=== PATIENT | female | born 1960 | race Caucasian/White ===

== ENCOUNTER 2017-09-21 00:53 | Inpatient (IN) | payer BC, OTHER ==
[~2017-09-21] VITALS: Ht 160 cm; Wt 62.6 kg
[2017-09-21 01:34] LABS: Basophils # (auto) 0.1 uL; Basophils % (auto) 0.6 % (0.0-2.0); Eosinophils # (auto) 0.1 uL; Eosinophils % (auto) 0.7 % (0.0-7.0); Hematocrit 40.1 % (36.0-46.0); Hemoglobin 13.6 g/dL (12.2-16.2); Lymphocytes % (auto) 12.7 % (10.0-50.0); Mean Corpuscular Hemoglobin 30.2 pg (28.0-32.0); Mean Corpuscular Hgb Conc. 33.8 g/dL (32.0-36.0); Mean Corpuscular Volume 89.2 fL (80.0-100.0); Monocytes # (auto) 0.8 uL; Monocytes % (auto) 5.1 % (0.0-12.0); Neutrophils # (auto) 12.6 uL; Neutrophils % (auto) 80.9 % (37.0-80.0); Platelet Count (auto) 262 10^3/uL (140-450); Red Cell Distribution Width 13.7 % (11.8-14.3); White Blood Cell 15.6 10^3/uL (4.4-10.8)
[2017-09-21 01:55] LABS: Albumin 3.5 g/dL (3.4-5.0); BUN/Creatinine Ratio 11.8; Calcium 7.7 mg/dL (8.5-10.1); Magnesium 1.8 mg/dL (1.6-2.6); Potassium 3.4 mmol/L (3.5-5.1)
[2017-09-21 02:00] LABS: Bilirubin, Total 0.7 mg/dL (0.2-1.0); Total Protein 6.7 g/dL (6.4-8.2)
[2017-09-21 04:13] LABS: Urine Amorphous Crystal FEW /hpf (None Seen); Urine Bacteria FEW /hpf (None Seen); Urine Blood TRACE /uL (Negative); Urine Specific Gravity 1.004 (1.001-1.035); Urine WBC 10 /hpf (0 - 5)
[2017-09-21] MEDS ORDERED: cefTRIAXone 1GM/10ml IVPUSH 10 ML IV ONE (04:30)
[2017-09-21] MEDS ORDERED: ENOXAPARIN SOD 80 MG/0.8ML SYRINGE SC ONE (04:30)
[2017-09-21] MEDS ORDERED: SODIUM CHLORIDE 0.9% 1,000 ML IV ONE (04:30)
[2017-09-21] MEDS ORDERED: FUROSEMIDE 20 MG/2 ML VIAL IV ONE (05:30)
[2017-09-21] MEDS ORDERED: ONDANSETRON HCL 4 MG/2 ML VIAL IV PRN (06:30)
[2017-09-21] MEDS ORDERED: NITROGLYCERIN 0.4 MG SL TAB SL PRN (06:30)
[2017-09-21] MEDS ORDERED: MORPHINE SULF INJ 2 MG/ML SYRINGE 1ML IV PRN (06:30)
[2017-09-21] MEDS ORDERED: ACETAMINOPHEN 325 MG TAB PO PRN (06:30)
[2017-09-21] MEDS ORDERED: TEMAZEPAM 15 MG CAP PO PRN (06:30)
[2017-09-21] MEDS ORDERED: HYDROcodone-ACET 5/325MG TAB PO PRN (06:30)
[2017-09-21] MEDS ORDERED: POTASSIUM CHL 20 Meq TABLET PO ONE (06:30)
[2017-09-21] MEDS: cefTRIAXone 1GM/10ml IVPUSH 10 ML IV SCH (09:00)
[2017-09-21] MEDS: METOPROLOL SUCCINATE XL 50 MG TAB PO SCH (10:01)
[2017-09-21] MEDS: TICAGRELOR 90 MG TAB PO SCH ×2 (10:02→21:45)
[2017-09-21] MEDS: FAMOTIDINE 20 MG TAB PO SCH ×2 (10:02→21:45)
[2017-09-21] MEDS: ASPirin 81 mg TAB PO SCH (10:02)
[2017-09-21 10:15] VITALS: BP 87/58
[2017-09-21 10:16] VITALS: BP 87/58
[2017-09-21] MEDS ORDERED: ASPI81TA27 PO (12:06)
[2017-09-21] MEDS ORDERED: METO25TA4 PO (12:06)
[2017-09-21] MEDS ORDERED: ATOR80TA PO (12:06)
[2017-09-21] MEDS ORDERED: TICA90TA PO (12:06)
[2017-09-21 16:51] VITALS: BP 80/53
[2017-09-21] MEDS: ENOXAPARIN SOD 80 MG/0.8ML SYRINGE SC SCH (21:46)
[2017-09-21 22:00] VITALS: BP 87/64
[2017-09-21] MEDS ORDERED: ATORVASTATIN 20 MG TAB PO SCH (22:00)
[2017-09-22 05:00] VITALS: BP 89/60
[2017-09-22 07:35] LABS: Basophils # (auto) 0.1 uL; Eosinophils # (auto) 0.2 uL; Eosinophils % (auto) 2.9 % (0.0-7.0); Hemoglobin 12.6 g/dL (12.2-16.2); Lymphocytes # (auto) 2.5 uL; Lymphocytes % (auto) 38.5 % (10.0-50.0); Mean Corpuscular Hemoglobin 30.1 pg (28.0-32.0); Mean Corpuscular Hgb Conc. 33.9 g/dL (32.0-36.0); Mean Corpuscular Volume 88.8 fL (80.0-100.0); Monocytes # (auto) 0.6 uL; Monocytes % (auto) 9.3 % (0.0-12.0); Neutrophils # (auto) 3.1 uL; Neutrophils % (auto) 48.3 % (37.0-80.0); Nucleated Red Blood Cells % 0.1 %; Platelet Count (auto) 209 10^3/uL (140-450); Red Blood Cells 4.17 10^6/uL (4.0-5.20); Red Cell Distribution Width 14.2 % (11.8-14.3); White Blood Cell 6.4 10^3/uL (4.4-10.8)
[2017-09-22 07:39] LABS: Albumin 3.4 g/dL (3.4-5.0); BUN/Creatinine Ratio 14.9; Bilirubin, Total 0.8 mg/dL (0.2-1.0); Calcium 8.1 mg/dL (8.5-10.1); Potassium 3.9 mmol/L (3.5-5.1); Total Protein 6.4 g/dL (6.4-8.2)
[2017-09-22 08:00] VITALS: BP 106/50
[2017-09-22 09:00] VITALS: BP 106/50
[2017-09-22] MEDS: METOPROLOL SUCCINATE XL 50 MG TAB PO SCH (10:00)
[2017-09-22] MEDS: ENOXAPARIN SOD 80 MG/0.8ML SYRINGE SC SCH (10:02)
[2017-09-22] MEDS: cefTRIAXone 1GM/10ml IVPUSH 10 ML IV SCH (10:02)
[2017-09-22] MEDS: FAMOTIDINE 20 MG TAB PO SCH (10:03)
[2017-09-22] MEDS: TICAGRELOR 90 MG TAB PO SCH (10:03)
[2017-09-22] MEDS: ASPirin 81 mg TAB PO SCH (10:03)
[2017-09-22 13:00] VITALS: BP 88/52
[2017-09-22] MEDS ORDERED: TEMA15CA91 PO (15:05)
[2017-09-22 15:51] VITALS: BP 88/52
[2017-09-23] MEDS ORDERED: ASPirin 81 mg TAB PO SCH (10:00)
== END 2017-09-22 17:10 | disposition home or self-care (01) | DRG 871 ==
LOC: EDBD 00:53 → ER 00:53 → TELE 00:54 → TELE-CENTR 10:22
PROVIDERS: ADMIT Nurse Practitioner; ATTEND Internal Medicine
DX: A41.9 Sepsis, unspecified organism (principal); J18.9 Pneumonia, unspecified organism; I21.4 Non-ST elevation (NSTEMI) myocardial infarction; I50.43 Acute on chronic combined systolic (congestive) and diastolic (congestive) heart failure; N39.0 Urinary tract infection, site not specified; E87.1 Hypo-osmolality and hyponatremia; E11.9 Type 2 diabetes mellitus without complications; I11.0 Hypertensive heart disease with heart failure; E87.6 Hypokalemia; E78.5 Hyperlipidemia, unspecified; I25.10 Atherosclerotic heart disease of native coronary artery without angina pectoris; I25.5 Ischemic cardiomyopathy; I25.2 Old myocardial infarction; Z98.61 Coronary angioplasty status; Z88.5 Allergy status to narcotic agent
CPT/HCPCS: 36415; 71046; 80053; 81001; 81025; 83735; 83880; 84484; 85025; 85379; 85610; 85730; 87086; 93306; 94761; 96361; 96374; 96375; J0696

== ENCOUNTER 2017-12-29 13:28 | Inpatient (IN) | payer BC ==
[~2017-12-29] VITALS: Ht 152.4 cm; Wt 60.7 kg
[~2017-12-29 13:28] MED LIST: ASPI81TA27 PO; ATOR80TA PO; METO25TA4 PO; TEMA15CA91 PO; TICA90TA PO
[2017-12-29 14:22] LABS: Basophils # (auto) 0.1 uL; Basophils % (auto) 1.1 % (0.0-2.0); Eosinophils # (auto) 0.1 uL; Hematocrit 42.3 % (36.0-46.0); Hemoglobin 14.4 g/dL (12.2-16.2); Lymphocytes # (auto) 1.2 uL; Lymphocytes % (auto) 16.4 % (10.0-50.0); Mean Corpuscular Hemoglobin 30.3 pg (28.0-32.0); Mean Corpuscular Volume 89.2 fL (80.0-100.0); Monocytes # (auto) 0.5 uL; Monocytes % (auto) 7.6 % (0.0-12.0); Neutrophils # (auto) 5.2 uL; Neutrophils % (auto) 73.9 % (37.0-80.0); Nucleated Red Blood Cells % 0.1 %; Platelet Count (auto) 251 10^3/uL (140-450); Red Blood Cells 4.75 10^6/uL (4.0-5.20); Red Cell Distribution Width 13.3 % (11.8-14.3)
[2017-12-29 14:36] LABS: Albumin 4.2 g/dL (3.4-5.0); Magnesium 2.4 mg/dL (1.6-2.6)
[2017-12-29 14:42] LABS: BUN/Creatinine Ratio 20.2; Bilirubin, Total 0.8 mg/dL (0.2-1.0); Total Protein 8.1 g/dL (6.4-8.2)
[2017-12-29] MEDS ORDERED: HYDROmorphone HCL 2 MG/ML VL IV PRN (15:45)
[2017-12-29] MEDS ORDERED: DOCUSATE SOD 100 MG CAP PO PRN (15:45)
[2017-12-29] MEDS ORDERED: HYDROcodone-ACET 5/325MG TAB PO PRN (15:45)
[2017-12-29] MEDS ORDERED: ONDANSETRON HCL 4 MG/2 ML VIAL IV PRN (15:45)
[2017-12-29] MEDS ORDERED: ACETAMINOPHEN 325 MG TAB PO PRN (15:45)
[2017-12-29] MEDS ORDERED: NITROGLYCERIN 0.4 MG SL TAB SL PRN (15:45)
[2017-12-29] MEDS ORDERED: METHOCARBAMOL 500 MG TAB PO PRN (15:45)
[2017-12-29] MEDS ORDERED: ENOXAPARIN SOD 80 MG/0.8ML SYRINGE SC ONE (16:30)
[2017-12-29 17:56] LABS: Urine Bacteria NONE SEEN /hpf (None Seen); Urine Blood Negative /uL (Negative); Urine Specific Gravity 1.004 (1.001-1.035); Urine WBC 3 /hpf (0 - 5)
[2017-12-29 19:35] VITALS: BP 100/64
[2017-12-29 21:18] VITALS: BP 84/51
[2017-12-29] MEDS: FLUTICASONE PROP NASAL SPR 0.05 % (50MCG) 16GM EACHNOSTRI SCH (22:00)
[2017-12-29] MEDS: ATORVASTATIN 20 MG TAB PO SCH (22:18)
[2017-12-29] MEDS: TICAGRELOR 90 MG TAB PO SCH (22:18)
[2017-12-29] MEDS: TEMAZEPAM 15 MG CAP PO PRN (22:19)
[2017-12-29] MEDS: FAMOTIDINE 20 MG TAB PO SCH (22:19)
[2017-12-29] MEDS: SODIUM CHLOR 0.9% PF (SALINE LOCK) 10ML VIAL/SYR IV SCH (22:21)
[2017-12-30 05:04] VITALS: BP 85/59
[2017-12-30] MEDS: SODIUM CHLOR 0.9% PF (SALINE LOCK) 10ML VIAL/SYR IV SCH ×3 (05:12→21:59)
[2017-12-30 06:40] LABS: Basophils # (auto) 0.1 uL; Basophils % (auto) 0.8 % (0.0-2.0); Eosinophils # (auto) 0.1 uL; Hematocrit 41.4 % (36.0-46.0); Hemoglobin 14.1 g/dL (12.2-16.2); Lymphocytes # (auto) 1.8 uL; Lymphocytes % (auto) 27.7 % (10.0-50.0); Mean Corpuscular Hemoglobin 30.8 pg (28.0-32.0); Mean Corpuscular Hgb Conc. 34.1 g/dL (32.0-36.0); Mean Corpuscular Volume 90.3 fL (80.0-100.0); Monocytes # (auto) 0.6 uL; Monocytes % (auto) 9.5 % (0.0-12.0); Neutrophils # (auto) 3.9 uL; Nucleated Red Blood Cells % 0.1 %; Platelet Count (auto) 232 10^3/uL (140-450); Red Blood Cells 4.59 10^6/uL (4.0-5.20); Red Cell Distribution Width 13.3 % (11.8-14.3); White Blood Cell 6.5 10^3/uL (4.4-10.8)
[2017-12-30 06:49] LABS: Potassium 3.9 mmol/L (3.5-5.1)
[2017-12-30 06:55] LABS: Albumin 3.7 g/dL (3.4-5.0); BUN/Creatinine Ratio 18.1; Bilirubin, Total 0.8 mg/dL (0.2-1.0); Calcium 8.6 mg/dL (8.5-10.1)
[2017-12-30 08:28] VITALS: BP 90/58
[2017-12-30] MEDS: FUROSEMIDE 20 MG TAB PO SCH (10:00)
[2017-12-30] MEDS: POTASSIUM CHL 10 Meq TABLET PO SCH (10:00)
[2017-12-30] MEDS ORDERED: ASPirin-EC 81 mg tab PO SCH (10:00)
[2017-12-30] MEDS: ASPirin 81 mg TAB PO SCH (10:35)
[2017-12-30] MEDS: FLUTICASONE PROP NASAL SPR 0.05 % (50MCG) 16GM EACHNOSTRI SCH ×3 (10:35→22:00)
[2017-12-30] MEDS: TICAGRELOR 90 MG TAB PO SCH ×2 (10:35→22:00)
[2017-12-30] MEDS: MULTIPLE VITAMIN TAB PO SCH (10:36)
[2017-12-30] MEDS: FAMOTIDINE 20 MG TAB PO SCH ×2 (10:36→22:00)
[2017-12-30] MEDS: METOPROLOL SUCCINATE XL 50 MG TAB PO SCH (10:37)
[2017-12-30 12:30] VITALS: BP 83/48
[2017-12-30 16:32] VITALS: BP 102/76
[2017-12-30 20:00] VITALS: BP 94/66
[2017-12-30 22:00] VITALS: BP 84/66
[2017-12-30] MEDS: ATORVASTATIN 20 MG TAB PO SCH (22:00)
[2017-12-30] MEDS: TEMAZEPAM 15 MG CAP PO PRN (22:00)
[2017-12-31 05:00] VITALS: BP 87/51
[2017-12-31] MEDS: SODIUM CHLOR 0.9% PF (SALINE LOCK) 10ML VIAL/SYR IV SCH ×3 (06:09→21:48)
[2017-12-31 08:00] VITALS: BP 87/51
[2017-12-31 08:56] VITALS: BP 89/52
[2017-12-31] MEDS: METOPROLOL SUCCINATE XL 50 MG TAB PO SCH (10:00)
[2017-12-31] MEDS: MULTIPLE VITAMIN TAB PO SCH (10:00)
[2017-12-31] MEDS: FAMOTIDINE 20 MG TAB PO SCH ×2 (10:00→21:49)
[2017-12-31] MEDS: FUROSEMIDE 20 MG TAB PO SCH (10:00)
[2017-12-31] MEDS: POTASSIUM CHL 10 Meq TABLET PO SCH (10:00)
[2017-12-31] MEDS: ASPirin 81 mg TAB PO SCH (10:00)
[2017-12-31] MEDS: TICAGRELOR 90 MG TAB PO SCH ×2 (10:00→21:48)
[2017-12-31] MEDS: FLUTICASONE PROP NASAL SPR 0.05 % (50MCG) 16GM EACHNOSTRI SCH ×2 (10:00→21:48)
[2017-12-31 13:01] VITALS: BP 94/58
[2017-12-31] MEDS ORDERED: LIDOCAINE 2%HCL (LOCAL ANESTH.) INJ 20ML MDV ONE (15:48)
[2017-12-31] MEDS ORDERED: IOHEXOL 350 MG/ML 100ML IJ ONE ×2 (15:48→16:32)
[2017-12-31] MEDS ORDERED: VERAPAMIL 2.5MG/ML INJ 2ML VIAL IV ONE (16:11)
[2017-12-31] MEDS ORDERED: ANGIOMAX 250 MG VIAL IV ONE (16:11)
[2017-12-31] MEDS ORDERED: SODIUM CHL 0.9% 0 ML ONE (16:12)
[2017-12-31] MEDS ORDERED: MIDAZOLAM HCL 1MG/1ML-2 ML VIAL ONE (16:12)
[2017-12-31] MEDS ORDERED: fentaNYL CITRATE 100 MCG/2 ML VL ONE (16:12)
[2017-12-31 18:15] VITALS: BP 85/90
[2017-12-31] MEDS: ATORVASTATIN 20 MG TAB PO SCH (21:48)
[2017-12-31] MEDS: TEMAZEPAM 15 MG CAP PO PRN (21:49)
[2017-12-31 22:00] VITALS: BP 95/54
[2018-01-01 05:18] VITALS: BP 87/48
[2018-01-01] MEDS: SODIUM CHLOR 0.9% PF (SALINE LOCK) 10ML VIAL/SYR IV SCH (06:13)
[2018-01-01 09:00] VITALS: BP_SYST 88; BP_SYST 89; BP_DIAS 56; BP_DIAS 57
[2018-01-01] MEDS: POTASSIUM CHL 10 Meq TABLET PO SCH (10:00)
[2018-01-01] MEDS: FUROSEMIDE 20 MG TAB PO SCH (10:00)
[2018-01-01] MEDS: FLUTICASONE PROP NASAL SPR 0.05 % (50MCG) 16GM EACHNOSTRI SCH (10:12)
[2018-01-01] MEDS: ASPirin 81 mg TAB PO SCH (10:12)
[2018-01-01] MEDS: METOPROLOL SUCCINATE XL 50 MG TAB PO SCH (10:13)
[2018-01-01] MEDS: FAMOTIDINE 20 MG TAB PO SCH (10:14)
[2018-01-01] MEDS: MULTIPLE VITAMIN TAB PO SCH (10:14)
[2018-01-01] MEDS: TICAGRELOR 90 MG TAB PO SCH (10:15)
[2018-01-01 12:53] VITALS: BP 89/57
== END 2018-01-01 13:28 | disposition home or self-care (01) | DRG 282 ==
LOC: ER 13:37 → TELE 13:38 → TELE-WESTW 19:32
PROVIDERS: ADMIT Internal Medicine; ATTEND Family Medicine
PROC: 4A023N7 Measurement of Cardiac Sampling and Pressure, Left Heart, Percutaneous Approach (ICD-10-PCS; principal; 2017-12-31)
PROC: B2111ZZ Fluoroscopy of Multiple Coronary Arteries using Low Osmolar Contrast (ICD-10-PCS; 2017-12-31)
PROC: B2151ZZ Fluoroscopy of Left Heart using Low Osmolar Contrast (ICD-10-PCS; 2017-12-31)
DX: I21.A1 Myocardial infarction type 2 (principal); I49.9 Cardiac arrhythmia, unspecified; E78.00 Pure hypercholesterolemia, unspecified; I11.0 Hypertensive heart disease with heart failure; I25.10 Atherosclerotic heart disease of native coronary artery without angina pectoris; I50.9 Heart failure, unspecified; I25.5 Ischemic cardiomyopathy; I25.2 Old myocardial infarction; Z87.440 Personal history of urinary (tract) infections; Z95.5 Presence of coronary angioplasty implant and graft; Z86.74 Personal history of sudden cardiac arrest; Z79.899 Other long term (current) drug therapy; Z88.8 Allergy status to other drugs, medicaments and biological substances; Z79.82 Long term (current) use of aspirin; Z82.49 Family history of ischemic heart disease and other diseases of the circulatory system; Z87.891 Personal history of nicotine dependence
CPT/HCPCS: 36415; 71045; 80053; 81001; 83735; 83880; 84443; 84484; 85025; 85379; 86850; 86900; 86901; 93005; 96372; A6257; G0378; J2250; J2405

== ENCOUNTER 2023-12-17 14:33 | Inpatient (IN) | payer BC ==
[~2023-12-17] VITALS: Ht 157.5 cm; Wt 87.7 kg
[~2023-12-17 14:33] MED LIST changes: +ASPI-543 PO; -ASPI81TA27 PO; +METO25TA36 PO; -METO25TA4 PO; +TEMA15CA2 PO; -TEMA15CA91 PO
--- NOTE | 2023-12-17 15:22 | ECG ---
[facility] Test Date: 2023-12-17 Test Time: 15:14:22 Pat Name: MONY CANCINO Department: er Room: 0295 Gender: F Guest Services Coordinator: GP : [id number] Requested By: MOIZ SHETTY Order Number: [id number] Reading MD: Lavelle Gastelum Measurements Intervals [place] Rate: 99 P: 22 AL: 140 QRS: 98 QRSD: 82 T: 27 QT: 360 QTc: 462 Interpretive Statements Sinus rhythm Right axis deviation Low voltage, extremity and precordial leads Probable anteroseptal infarct, old Electronically Signed On 12-18-2023 14:58:02 PDT by Lavelle Gastelum Please click the below link to view image of tracing.
--- NOTE | 2023-12-17 15:27 | ED.PDOC ---
GI ASSESSMENT HPI Comments Disease a 63-year-old female who comes to the ED with chief complain of abdominal pain. She has a past medical history relevant for CHF with an ejection fraction of 25% to 35%, status post defibrillator placement, history of ME, multiple stents placed, hyperlipidemia, recurrent UTIs, hemorrhoids, partial hysterectomy. Patient states that since last she has been experiencing abdominal pain, most prominent on suprapubic area and lower quadrants, does not radiate, it is cramping like pain, moderate to severe, worsens during bowel movements, which she state having episodes of bright red blood, minimal amount, she also states that for the last couple of months she has been experiencing small amount of bowel movements, but they are well-formed. Patient states that for the last three months she was has been treated for UTIs, pyelonephritis, with nitrofurantoin, Keflex and also with cefuroxime. Patient is also complaining of dry cough for the last 1-2 months, which sometimes provides her to have vomiting. Other associated symptoms are generalized weakness, chills, low appetite, nausea. She currently denies any significant chest pain, shortness of breath, lightheadedness, dizziness, any focal weakness, gait imbalance. Chief Complaint: Abdominal Pain Time Seen by MD: 14:35 Primary Care Provider: ZAFAR Reviewed Notes: Nurses Notes Allergies: Coded Allergies: Lisinopril (Verified Allergy, Unknown, 12/29/17) Morphine (Verified Allergy, Unknown, 09/21/17) Home Meds Reported Medications Temazepam (Restoril) 15 Mg Cp, 1 CAP PO QPM PRN, #30 CAP 1 Refill 09/22/17 Ticagrelor Base (BRILINTA) 90 Mg Tab, 90 MG PO BID, TAB 09/21/17 Metoprolol Succinate (Toprol Xl) 25 Mg Tab, 25 MG PO DAILY, TAB 09/21/17 Atorvastatin Calcium (Lipitor) 80 Mg Tab, 80 MG PO HS, TAB 09/21/17 Aspirin (Aspir-Low) 81 Mg Tab, 81 MG PO DAILY for 30 Days, MG 09/21/17 Information Source: Patient Mode of Arrival: Ambulatory Timing: Days Duration: Since onset Quality: Cramping Vomitus: None Stool: Hemorrhoids, Blood Streaked Severity: Moderate Pain Location: Suprapubic Associated sign and symptoms: Nausea, Hematochezia Past Medical History PAST MEDICAL HISTORY: CAD, CHF, High Lipids, HTN, ME, UTI'S Surgical 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: Denies all 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 Hx Family History Family History: Unknown Social History Smoker: Quit Greater Than 1 Year (You said to be a heavy smoker) Alcohol: Occasionally (Used to be a heavy drinker) Drugs: Denies Drug Use (Did cocaine and meth many years ago) Lives In: Home Constitutional: reports: chills, fatigue, weakness; denies: diaphoresis, fever, malaise, sweats, others EENTM: denies: blurred vision, double vision, ear bleeding, ear discharge, ear drainage, ear pain, ear ringing, eye pain, eye redness, hearing loss, mouth pain, mouth swelling, nasal discharge, nose bleeding, nose congestion, nose pain, photophobia, tearing, throat pain, throat swelling, voice changes, others Respiratory: denies: cough, hemoptysis, orthopnea, SOB at rest, shortness of breath, SOB with excertion, stridor, wheezing, others Cardiovascular: denies: chest pain, dizzy spells, diaphoresis, Dyspnea on exertion, edema, irregular heart beat, left arm pain, lightheadedness, palpitations, PND, syncope, others Gastrointestinal: reports: abdominal pain, blood streaked bowels, constipated, nausea, poor appetite, rectal bleeding; denies: abdomen distended, diarrhea, dysphagia, difficulty swallowing, hematemesis, melena, poor fluid intake, rectal pain, vomiting, others Genitourinary: denies: abnormal vagina bleeding, burning, dyspareunia, dysuria, flank pain, frequency, hematuria, incontinence, pain, , vagina discharge, urgency, others Neurological: denies: dizziness, fainting, headache, left sided numbness, left sided weakness, numbness, paresthesia, pre-existing deficit, right sided numbness, right sided weakness, seizure, speech problems, tingling, tremors, weakness, others Musculoskeletal: denies: back pain, gout, joint pain, joint swelling, muscle pain, muscle stiffness, neck pain, others Integumetry: denies: bruises, change in color, change in hair/nails, dryness, laceration, lesions, lumps, rash, wounds, others Allergic/Immunocompromised: denies: Difficulty Healing, Frequent Infections, Hives, Itching, others Hematologic/Lymphatic: denies: anemia, blood clots, easy bleeding, easy bruising, swollen glands, others Endocrine: denies: excessive hunger, excessive sweating, excessive thirst, excessive urination, flushing, intolerance to cold, intolerance to heat, unexplained weight gain, unexplained weight loss, others Psychiatric: denies: anxiety, bipolar disorder, depression, hopeless, panic disorder, schizophrenia, sleepless, suicidal, others Physical Exam General Appearance: Mild Distress, Normal HEENT: Normal ENT Inspection, Pharynx Normal, TMs Normal Neck: Full Range of Motion, Non-Tender, Normal, Normal Inspection Respiratory: Chest Non-Tender, Lungs Clear, No Accessory Muscle Use, No Respiratory Distress, Normal Breath Sounds Cardiovascular: No Edema, No JVD, No Murmur, No Gallop, Normal Peripheral Pulses, Regular Rate/Rhythm Breast Exam: Deferred Gastrointestinal: No Organomegaly, No Pulsatile Mass, Normal Bowel Sounds, Soft, Suprapubic, Tenderness Genitalia: Deferred Pelvic: Deferred Rectal: Deferred Extremities: No calf tenderness, Normal capillary refill, Normal inspection, Normal range of motion, Non-tender, No pedal edema Neurologic: Alert, keg inspector II-XII nml as Tested, No Motor Deficits, Normal Affect, Normal Mood, No Sensory Deficits Cerebellar Function: NOT DONE Reflexes: NOT DONE Skin: Dry, Normal Color, Warm Lymphatic: No Adenopathy Was a procedure done? Was a procedure done?: No GI differential Dx Differential Diagnosis: Cholecystitis, Constipation, Diverticular disease, Gastritis/PUD, Gastroenteritis, GI hemorrhage, UTI X-Ray, Labs, Meds, VS Vital Signs Date Time Temp Pulse Resp B/P (MAP) Pulse Ox O2 Delivery O2 Flow Rate FiO2 12/17/23 15:36 102 16 99 Room Air 12/17/23 15:36 99.4 102 16 86/59 (68) 99 99.4 12/17/23 15:14 99 12/17/23 14:52 97.7 105 18 105/65 (78) 100 Lab Test 12/17/23 15:43 Range/Units White Blood Count 12.1 H 4.4-10.8 10^3/uL Red Blood Count 4.23 4.0-5.20 10^6/uL Hemoglobin 10.5 L 12.2-16.2 g/dL Hematocrit 33.2 L 36.0-46.0 % Mean Corpuscular Volume 78.4 L 80.0-100.0 fL Mean Corpuscular Hemoglobin 24.8 L 28.0-32.0 pg Mean Corpuscular Hemoglobin Concent 31.6 L 32.0-36.0 g/dL Red Cell Distribution Width 18.9 H 11.8-14.3 % Platelet Count 477 H 140-450 10^3/uL Mean Platelet Volume 8.2 6.9-10.8 fL Neutrophils (%) (Auto) 80.2 H 37.0-80.0 % Lymphocytes (%) (Auto) 9.4 L 10.0-50.0 % Monocytes (%) (Auto) 9.2 0.0-12.0 % Eosinophils (%) (Auto) 0.3 0.0-7.0 % Basophils (%) (Auto) 0.9 0.0-2.0 % Neutrophils # (Auto) 9.7 H 1.6-8.6 10 ^3/uL Lymphocytes # (Auto) 1.1 0.4-5.4 10 ^3/uL Monocytes # (Auto) 1.1 0-1.3 10 ^3/uL Eosinophils # (Auto) 0 0-0.8 10 ^3/uL Basophils # (Auto) 0.1 0-0.2 10 ^3/uL Nucleated Red Blood Cells 0.0 % Sodium Level 134 L 136-145 mmol/L Potassium Level 3.9 3.5-5.1 mmol/L Chloride Level 102 98-107 mmol/L Carbon Dioxide Level 21 20-31 mmol/L Anion Gap 11 5-15 Blood Urea Nitrogen 11 9-23 mg/dL Creatinine 0.85 0.550-1.02 mg/dL Glomerular Filtration Rate Calc 78 >90 mL/min BUN/Creatinine Ratio 12.9 10.0-20.0 Serum Glucose 93 74-106 mg/dL Calcium Level 8.8 8.7-10.4 mg/dL Total Bilirubin 1.5 H 0.2-1.0 mg/dL Aspartate Amino Transferase (AST) 479 H 13-40 U/L Alanine Aminotransferase (ALT) 62 H 7-40 U/L Alkaline Phosphatase 832 H 46-116 U/L Total Protein 7.5 5.7-8.2 g/dL Albumin 3.7 3.2-4.8 g/dL Current Medications Medications (Trade) Dose Ordered Sig/Saige Route Start Time Stop Time Status Last Admin Pantoprazole Sodium (Protonix) 40 mg ONCE ONCE IV 12/17/23 15:15 12/17/23 15:17 DC 12/17/23 15:53 Ketorolac Tromethamine (Toradol Injection) 30 mg ONCE ONCE IV 12/17/23 15:15 12/17/23 15:17 DC 12/17/23 15:54 On my initial examination, patient appears in mild distress due to abdominal pain, we will order a CBC, CMP, UA, KUB, we ordered IV Protonix and IV Toradol, we will continue to reassess[place] [id number] with a left shift, hemoglobin was 10.2, platelets were 477, CMP showed AST of 479, ALT 62, alkaline phosphatase was 832. Patient stated that the abdominal pain has improved mildly, we will admit her for further workup, blood culture has been ordered, urine culture has been ordered, Librium ultrasound as well. Images Reviewed?: Images reviewed and evaluated by me Time of 1ST Reevaluation: 15:18 Reevaluation 1ST: Unchanged Patient Education/Counseling: Diagnosis, Treatment Family Education/Counseling: No Family Present Departure 1 Departure Time of Disposition: 17:38 Impression: Primary Impression: Abdominal pain Additional Impressions: Cholecystitis Gastritis Urinary tract infection Liver disease History of alcohol abuse Heart failure with reduced ejection fraction Hyperlipidemia SIRS (systemic inflammatory response syndrome) History of ME (myocardial infarction) Disposition: ADMITTED INPATIENT Condition: Guarded Critical Care Note Critical Care Time?: No Stability Stability form required: No Heart Score Heart Score: Heart Score Response (Comments) Value History N/A 0 EKG Normal 0 Age 45-64 1 Risk Factors >3 or Hx ASHD 2 Troponin N/A 0 Total 3 MOIZ BELLE RESIDENT Dec 17, 2023 15:27
--- NOTE | 2023-12-17 15:47 | DVH ---
Exam: XY KUB ABDOMEN SINGLE VIEW Indication: abdominal pain, uti, constipation Comparison: None Technique: 2 radiographic views of the abdomen. Findings: Moderate volume colonic stool. Nonobstructive bowel gas pattern noted. There is no definite evidence for pneumoperitoneum. No abnormal calcifications noted. Impression: Nonobstructive bowel gas pattern noted. Moderate volume colonic stool.
[2023-12-17] MEDS: PANTOPRAZOLE 40 MG/10 ML VIAL INJ IV ONE (15:53)
[2023-12-17] MEDS: KETOROLAC TROMETH 30 MG/ML 1ML VIAL IV ONE (15:54)
[2023-12-17 16:06] LABS: Basophils # (auto) 0.1 10 ^3/uL (0-0.2); Basophils % (auto) 0.9 % (0.0-2.0); Eosinophils # (auto) 0 10 ^3/uL (0-0.8); Hemoglobin 10.5 g/dL (12.2-16.2); Monocytes # (auto) 1.1 10 ^3/uL (0-1.3); Monocytes % (auto) 9.2 % (0.0-12.0)
[2023-12-17 16:08] LABS: Eosinophils % (auto) 0.3 % (0.0-7.0); Hematocrit 33.2 % (36.0-46.0); Lymphocytes # (auto) 1.1 10 ^3/uL (0.4-5.4); Lymphocytes % (auto) 9.4 % (10.0-50.0); Mean Corpuscular Hemoglobin 24.8 pg (28.0-32.0); Mean Corpuscular Hgb Conc. 31.6 g/dL (32.0-36.0); Mean Corpuscular Volume 78.4 fL (80.0-100.0); Neutrophils # (auto) 9.7 10 ^3/uL (1.6-8.6); Neutrophils % (auto) 80.2 % (37.0-80.0); Platelet Count (auto) 477 10^3/uL (140-450); Red Blood Cells 4.23 10^6/uL (4.0-5.20); Red Cell Distribution Width 18.9 % (11.8-14.3); White Blood Cell 12.1 10^3/uL (4.4-10.8)
[2023-12-17 16:27] LABS: Alanine Aminotransferase 62 U/L (7-40); Albumin 3.7 g/dL (3.2-4.8); Alkaline Phosphatase 832 U/L (46-116); Anion Gap 11 (5-15); Aspartate Aminotransferase 479 U/L (13-40); BUN/Creatinine Ratio 12.9 (10.0-20.0); Blood Urea Nitrogen 11 mg/dL (9-23); Calcium 8.8 mg/dL (8.7-10.4); Carbon Dioxide 21 mmol/L (20-31); Chloride 102 mmol/L (98-107); Glucose 93 mg/dL (74-106); Potassium 3.9 mmol/L (3.5-5.1); Sodium 134 mmol/L (136-145)
[2023-12-17 16:28] LABS: Bilirubin, Total 1.5 mg/dL (0.2-1.0); Total Protein 7.5 g/dL (5.7-8.2)
--- NOTE | 2023-12-17 18:37 | DVH ---
CHEST RADIOGRAPH Indication:sob Technique: Single frontal view of the chest was obtained Comparison: None FINDINGS: Lines and Tubes: Right-sided cardiac device with intact leads. Lungs: No focal consolidation. Pleura: No effusion. No pneumothorax. Cardiomediastinal contours: Unremarkable Bones: No acute osseous abnormality. IMPRESSION: No acute cardiopulmonary disease.
--- NOTE | 2023-12-17 18:44 | DVH ---
Procedure: US LIVER Study Date and Requested Time: 12/17/2023 05:38 PM History:transaminitis Comparison: None Technique: Multiple high resolution simmons-scale images obtained of the right upper quadrant of the abd omen with color Doppler for evaluation of blood flow and vascularity as indicated. Findings: Liver measures 24 cm in length with heterogeneous echotexture. No evidence of intrahepatic or extrah epatic ductal dilatation. 8.1 x 8.3 x 8 cm left hepatic lobe soft tissue mass . Common bile duct me asures is not visualized. Gallbladder unremarkable with no evidence of abnormal wall thickening, gallstones, biliary sludge, or pericholecystic fluid. Negative sonographic Naranjo's sign. Pancreas is obscured by bowel gas. Right kidney measures 10 cm in length, with normal contours, echotexture, and cortical thickness. No evidence of hydronephrosis, calculi, cystic or solid renal lesions. Partially visualized inferior vena cava unremarkable. Impression: Hepatomegaly with increased hepatic echogenicity which may be from hepatic steatosis / hepatic diseas e. 8.1 x 8.3 x 8 cm left hepatic lobe soft tissue mass. Hepatic protocol CT/ is recommended for further evaluation. Pancreas is obscured by bowel gas.
[2023-12-17] MEDS: PIPERACILLIN-TAZOB 3.375GM 100 ML IV ONE (19:03)
[2023-12-17 19:10] VITALS: RESP 16; O2SAT 96
[2023-12-17 19:38] LABS: Lactic Acid w/Reflex 2.2 mmol/L (0.4-2.0)
[2023-12-17] MEDS: SODIUM CHLORIDE 0.9% 1,000 ML IV ONE (20:06)
[2023-12-17] MEDS: HYDROcodone-ACET 5/325MG TAB PO ONE (20:08)
[2023-12-17] MEDS ORDERED: NITROGLYCERIN 0.4 MG SL TAB SL PRN (22:00)
[2023-12-17] MEDS: SODIUM CHLOR 0.9% PF (SALINE LOCK) 10ML VIAL/SYR IV SCH (22:00)
[2023-12-17] MEDS ORDERED: MORPHINE SULFATE INJ 2 MG/ml SYRG IV PRN (22:00)
[2023-12-17] MEDS ORDERED: ACETAMINOPHEN 325 MG TAB PO PRN (22:00)
--- NOTE | 2023-12-17 22:45 | DVHHPRES ---
History of Present Illness Resident Creating Document: JASPAL GURROLA RESIDENT History of Present Illness This is a 63-year-old female with past medical history of chronic systolic heart failure, status post defibrillator placement, CAD with status post PTCA multiple stents, hyperlipidemia, hypertension, recurrent UTI, hemorrhoid, partial hysterectomy presented to the ED with a chief complaint of abdominal pain for last 1 week prior to this admission. Patient states that since last she has been experiencing abdominal pain, most prominent on suprapubic area and lower quadrants, does not radiate, it is cramping like pain, moderate to severe, worsens during bowel movements and some time associated with right red blood. She also states that for the last couple of months she has been experiencing small amount of bowel movements, but they are well-formed. Patient also mention that for the last three months she has been treated for UTIs, pyelonephritis, with nitrofurantoin, Keflex and also with cefuroxime. Patient is also complaining of dry cough for the last 1-2 months with associated symptoms are generalized weakness, chills, low appetite, nausea. She currently denies any significant chest pain, shortness of breath, lightheadedness, dizziness, any focal weakness,or gait imbalance. PCP: Remy Rico Commercial Sales Director: Dr. Orozco Carpet Sewing Machine Operator: Dr. Mc Review of Systems Constitutional: Yes: Sweats; No: Fever, Chills, Weakness, Malaise, Other Eyes: No: Pain, Vision change, Conjunctivae inflammation, Eyelid inflammation, Other, Redness ENT: No: Ear pain, Ear discharge, Nose pain, Nose discharge, Nose congestion, Mouth pain, Mouth swelling, Throat pain, Throat swelling, Other Respiratory: Cough, Dry, Shortness of breath Cardiovascular: No: Chest Pain, Palpitations, Orthopnea, Paroxysmal Noc. Dyspnea, Edema, Lt Headedness, Other Gastrointestinal: Nausea, Abdominal Pain; No: Vomiting, Diarrhea, Constipation, Melena, Hematochezia, Other Genitourinary: Dysuria; No Frequency, No Incontinence, No Hematuria, No Retention, No Other Musculoskeletal: No: other, neck pain, shoulder pain, arm pain, back pain, hand pain, leg pain, foot pain Skin: No: Rash, Lesions, Jaundice, Bruising, Other Neurological: No: Weakness, Numbness, Incoordination, Change in speech, Confusion, Seizures, Other Allergies: Coded Allergies: Lisinopril (Verified Allergy, Unknown, 12/29/17) Morphine (Verified Allergy, Unknown, 09/21/17) Medications Current Medications Medications Dose Ordered Sig/Saige Route Start Time Stop Time Status Last Admin Dose Admin Sodium Chloride 10 ml Q8HR IV 12/17/23 22:00 Sodium Chloride 1,000 ml @ 60 mls/hr [id number] IV 12/17/23 22:00 Acetaminophen 325 mg Q4HP PRN PO 12/17/23 22:00 Acetaminophen/ Hydrocodone Bitart 1 tab Q4HP PRN PO 12/17/23 22:00 Ondansetron HCl 4 mg Q4HP PRN IV 12/17/23 22:00 Enoxaparin Sodium 40 mg DAILY SC 12/18/23 10:00 Nitroglycerin 0.4 mg Q5MINP PRN SL 12/17/23 22:00 Morphine Sulfate 2 mg Q30M PRN IV 12/17/23 22:00 UNV Piperacillin Sod/ Tazobactam Sod 100 ml @ 25 mls/hr Q6HR@0100,0700,1300,1900 IV 12/18/23 01:00 Exam Vital Signs Vital Signs Date Time Temp Pulse Resp B/P (MAP) Pulse Ox O2 Delivery O2 Flow Rate FiO2 12/17/23 19:20 97.4 82 16 90/55 (67) 97 97.4 12/17/23 15:36 Room Air General Appearance: Alert, Oriented X3, Cooperative, mild distress HEENT: Atraumatic, PERRLA, EOMI, Mucous membr. moist/pink Respiratory: Clear to auscultation, Normal air movement Cardiovascular: Regular rate, Normal S1, Normal S2, No murmurs Abdominal: Normal bowel sounds, No hepatospenomegaly, No masses (Abdomen is mildly tender in the suprapubic region) Extremities: No clubbing, No cyanosis, No edema, Normal pulses, No tenderness/swelling Skin: No rashes, No breakdown, No significant lesion Neuro: Normal gait, Normal speech, Strength at 5/5 X4 ext, Normal tone, Sensation intact Psych/Mental Status: Mental status NL, Mood NL Labs/Xrays Labs Test 12/17/23 21:09 12/17/23 15:43 Range/Units Lactic Acid Level 1.8 0.4-2.0 mmol/L White Blood Count 12.1 H 4.4-10.8 10^3/uL Red Blood Count 4.23 4.0-5.20 10^6/uL Hemoglobin 10.5 L 12.2-16.2 g/dL Hematocrit 33.2 L 36.0-46.0 % Mean Corpuscular Volume 78.4 L 80.0-100.0 fL Mean Corpuscular Hemoglobin 24.8 L 28.0-32.0 pg Mean Corpuscular Hemoglobin Concent 31.6 L 32.0-36.0 g/dL Red Cell Distribution Width 18.9 H 11.8-14.3 % Platelet Count 477 H 140-450 10^3/uL Mean Platelet Volume 8.2 6.9-10.8 fL Neutrophils (%) (Auto) 80.2 H 37.0-80.0 % Lymphocytes (%) (Auto) 9.4 L 10.0-50.0 % Monocytes (%) (Auto) 9.2 0.0-12.0 % Eosinophils (%) (Auto) 0.3 0.0-7.0 % Basophils (%) (Auto) 0.9 0.0-2.0 % Neutrophils # (Auto) 9.7 H 1.6-8.6 10 ^3/uL Lymphocytes # (Auto) 1.1 0.4-5.4 10 ^3/uL Monocytes # (Auto) 1.1 0-1.3 10 ^3/uL Eosinophils # (Auto) 0 0-0.8 10 ^3/uL Basophils # (Auto) 0.1 0-0.2 10 ^3/uL Nucleated Red Blood Cells 0.0 % Sodium Level 134 L 136-145 mmol/L Potassium Level 3.9 3.5-5.1 mmol/L Chloride Level 102 98-107 mmol/L Carbon Dioxide Level 21 20-31 mmol/L Anion Gap 11 5-15 Blood Urea Nitrogen 11 9-23 mg/dL Creatinine 0.85 0.550-1.02 mg/dL Glomerular Filtration Rate Calc 78 >90 mL/min BUN/Creatinine Ratio 12.9 10.0-20.0 Serum Glucose 93 74-106 mg/dL Calcium Level 8.8 8.7-10.4 mg/dL Total Bilirubin 1.5 H 0.2-1.0 mg/dL Aspartate Amino Transferase (AST) 479 H 13-40 U/L Alanine Aminotransferase (ALT) 62 H 7-40 U/L Alkaline Phosphatase 832 H 46-116 U/L Total Protein 7.5 5.7-8.2 g/dL Albumin 3.7 3.2-4.8 g/dL Assessment/Plan Assessment/Plan Assessment and plan: # Sepsis likely due to possible liver abscess - Patient was presented with tachycardia, elevated temperature, WBC count and lactic acid - IV normal saline at 60 mL/hour - U/S of liver revealed hepatomegaly with increased hepatic echogenicity and 8.1 x 8.3 x 8 cm left hepatic lobe soft tissue mass - IV Zosyn 3.375 mg q.6 hours - Ordered blood culture and urine culture # Possible MARCIANO in liver - U/S of liver revealed hepatomegaly with increased hepatic echogenicity and 8.1 x 8.3 x 8 cm left hepatic lobe soft tissue mass - LFT demonstrated hyperbilirubinemia with transaminitis - Ordered CT abdomen pelvis with or without contrast , AFP, hepatitis panel and coagulation. # Chronic systolic heart failure - Chest xray revealed no acute cardio pulmonary disease. - Last echo in 2021 demonstrated ejection fraction 35 to 40% - hold home meds metoprolol succinate 25 mg daily and Entresto 24-26 mg 1 tab b.i.d. due to hypotension - Ordered echo and BNP # History of CAD with status post PTCA multiple stents and status post defibrillator - Continue aspirin 81 mg daily and atorvastatin 80 mg at HS - ordered interrogation for pacemaker # DVT prophylaxis - Lovenox 40 mg sc daily Goal of care discussed with the patient for more than 23 minutes full code Plan of treatment discussed with Dr. Amin Plan discussed with: Patient, Other My Orders Orders - JASPAL GURROLA RESIDENT Procedure Category Date Status Time Admit ADMIT 12/17/23 Transmitted 21:54 Code Status CODE 12/17/23 Transmitted 21:54 Sodium Chloride Lock PHA 12/17/23 In Process (Saline Lock Ns) 22:00 Sodium Chloride 0.9% PHA 12/17/23 In Process 22:00 Oxygen Per Hour RT 12/17/23 Transmitted 21:54 Acetaminophen Tablet PHA 12/17/23 In Process (Tylenol Tablet) 22:00 Hydrocodone-Acet PHA 12/17/23 In Process 5/325mg Tab ([place] 22:00 Ondansetron Hcl PHA 12/17/23 In Process (Zofran) 22:00 Enoxaparin Sodium PHA 12/18/23 In Process (Lovenox) 10:00 Complete Blood Count LAB 12/18/23 Verified 04:00 Comprehensive LAB 12/18/23 Verified Metabolic Panel 04:00 Pt Request For Service PT 12/17/23 Logged 21:54 Echo 2d Mode Cardiac US 12/17/23 Logged DOP 21:54 Clear Liq Diet DIET 12/18/23 Transmitted Breakfast Nitroglycerin PHA 12/17/23 In Process Sublingual (Ntrostat 22:00 Morphine Sulfate PHA 12/17/23 Pending Injection 22:00 Oxygen By Nasal RT 12/17/23 Transmitted Cannula 21:54 Stat Ekg For Chest DELORES 12/17/23 In Process Pain 21:54 Notify Of Changes DELORES 12/17/23 In Process From Base 21:54 Retort Furnace Helper For DELORES 12/17/23 In Process 24 Hours 21:54 Emergency Dysrhythmia DELORES 12/17/23 In Process Protocol 21:54 Rhythm Strips Once DELORES 12/17/23 In Process Every Shift 21:54 Thyroid Stimulating LAB 12/17/23 Logged Hormone 22:28 Hemoglobin A1c LAB 12/17/23 Logged 22:28 Vitamin B12 LAB 12/17/23 Logged 22:28 Vitamin D, 25-Hydroxy LAB 12/17/23 Logged 22:28 Ct Ab Pelv W Wo CT 12/17/23 Logged Con-Oral & Iv 22:31 Afp Serum Tumor Marker LAB 12/17/23 Logged 22:31 PTPTT LAB 12/17/23 Logged 22:31 Piperacillin-Tazob PHA 12/18/23 In Process 3.375gm (Zosyn 3.375g 01:00 Date of Service: Dec 17, 2023 Billing Provider: KALEB AMIN MDJESSENIAJASPAL RESIDENT Dec 17, 2023 22:45 KALEB AMIN MD Dec 18, 2023 09:06
[2023-12-17] MEDS: SODIUM CHLORIDE 0.9% 1,000 ML IV SCH (23:07)
[2023-12-17 23:34] VITALS: RESP 16; O2SAT 96
[2023-12-18] VITALS (8 sets, daily range): BP systolic 89–96; BP diastolic 49–59; PULSE 84–93; RESP 17–20; TEMP 97.5–98.7; O2SAT 92–97
[2023-12-18] MEDS: PIPERACILLIN-TAZOB 3.375GM 100 ML IV SCH (01:05)
[2023-12-18] MEDS ORDERED: SACU1TAB PO (01:39)
[2023-12-18 08:53] LABS: Basophils # (auto) 0.1 10 ^3/uL (0-0.2); Basophils % (auto) 0.8 % (0.0-2.0); Eosinophils # (auto) 0.1 10 ^3/uL (0-0.8); Hemoglobin 9.8 g/dL (12.2-16.2); Lymphocytes # (auto) 0.9 10 ^3/uL (0.4-5.4)
[2023-12-18 08:55] LABS: Eosinophils % (auto) 0.7 % (0.0-7.0); Hematocrit 30.3 % (36.0-46.0); Lymphocytes % (auto) 10.2 % (10.0-50.0); Mean Corpuscular Hemoglobin 24.4 pg (28.0-32.0); Mean Corpuscular Hgb Conc. 32.4 g/dL (32.0-36.0); Mean Corpuscular Volume 75.3 fL (80.0-100.0); Monocytes # (auto) 0.7 10 ^3/uL (0-1.3); Monocytes % (auto) 8.2 % (0.0-12.0); Neutrophils # (auto) 7.3 10 ^3/uL (1.6-8.6); Neutrophils % (auto) 80.1 % (37.0-80.0); Platelet Count (auto) 431 10^3/uL (140-450); Red Blood Cells 4.02 10^6/uL (4.0-5.20); White Blood Cell 9.1 10^3/uL (4.4-10.8)
[2023-12-18 09:03] LABS: INR 1.71 (0.9-1.15); Partial Thromboplastin Time 38.2 SEC (24.5-34.5); Prothrombin Time 17.4 sec (9.3-11.8)
[2023-12-18 09:05] LABS: Alanine Aminotransferase 55 U/L (7-40); Albumin 3.3 g/dL (3.2-4.8); Alkaline Phosphatase 768 U/L (46-116); Calcium 8.4 mg/dL (8.7-10.4); Carbon Dioxide 19 mmol/L (20-31); Chloride 103 mmol/L (98-107); Glucose 83 mg/dL (74-106); Potassium 3.3 mmol/L (3.5-5.1)
[2023-12-18 09:06] LABS: Anion Gap 11 (5-15); Aspartate Aminotransferase 412 U/L (13-40); BUN/Creatinine Ratio 14.1 (10.0-20.0); Bilirubin, Total 1.4 mg/dL (0.2-1.0); Blood Urea Nitrogen 11 mg/dL (9-23); Sodium 133 mmol/L (136-145); Total Protein 6.7 g/dL (5.7-8.2)
[2023-12-18] MEDS: ASPirin-EC 81 mg tab PO SCH (09:18)
[2023-12-18] MEDS: ENOXAPARIN SOD 40 MG/0.4 ML SYRINGE SC SCH (09:19)
[2023-12-18 09:57] LABS: Hepatitis B Core Total AB Negative (Negative)
[2023-12-18 10:23] LABS: Hepatitis B Surface Antigen Negative (Negative)
[2023-12-18 10:43] LABS: Hepatitis A Ab IgM Negative
[2023-12-18 10:44] LABS: Hepatitis B Core IgM Negative; Hepatitis C Antibody Negative (Negative)
[2023-12-18 10:53] LABS: Erythrocyte Sedimentation Rate 75 mm/hr (0-20)
[2023-12-18 11:08] LABS: % Iron Saturation 7.7 % (15-50)
[2023-12-18 11:32] LABS: Urine Bacteria None Seen /hpf (None Seen)
--- NOTE | 2023-12-18 11:33 | DVHPNRES ---
Progress Note Date Seen: Dec 18, 2023 Resident Creating Document: TIMOTHY CHACON RESIDENT Medical Necessity Reason Pt with a Central, PICC or Fol: No Subjective Review of Systems This is a 63-year-old female patient with PMHx of systolic heart failure status post Medtronic ICD placement -last EF 35% in September2023, CAD status post 4 WISAM in January 2018 , dyslipidemia, recurrent UTIs and pyelonephritis for the past 4 months, hypertension and internal hemorrhoids presented to the ER with a chief complaint of suprapubic abdominal pain and constipation. Patient recently visited [facility] in August this year with her when she went to the [place]ongo barefoot and had bite dong all over the body, following which she has been getting recurrent UTIs and pyelonephritis starting September, also reports dry cough since the visit. She reports that the abdominal pain started 12/10 and is associated with tenesmus, she only passes small pellet-like stools associated with mucus and a lot of flatus. Also reports history of internal hemorrhoids and that she is experiencing bright red bleed per rectum for the past few days. She denies lifetime history of colonoscopy/endoscopy. Reports nausea, chills on and off but no fever. Denies lifetime history of STI, is monogamous with the . Her did not get any symptoms after the trip. 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 reports no acute distress, went to have a bowel movement but only passed gas/mucus and a small stool. She has laboratory reports with her from the past, shows transaminitis starting in 07/10. Chest x-ray unremarkable except for Medtronic ICD. X-ray abdomen shows moderate volume in colonic lumen. Nonobstructive bowel was noted. Liver ultrasound completed 8x8x8 left liver lobe soft tissue mass tried hepatomegaly with increased hepatic echogenicity seen. Objective vital signs Vital Sign Date Time Temp Pulse Resp B/P (MAP) Pulse Ox O2 Delivery O2 Flow Rate FiO2 12/18/23 09:00 98.3 89 18 89/53 (65) 92 98.3 12/18/23 02:16 Room Air* 0 21 Total Intake and Output 12/17/23 12/17/23 12/18/23 15:00 23:00 07:00 Intake Total 500 ml Output Total 400 ml Balance 100 ml medications Current Medications Medications Dose Ordered Sig/Saige Route Start Time Stop Time Status Last Admin Dose Admin Sodium Chloride 10 ml Q8HR IV 12/17/23 22:00 12/18/23 06:15 10 ML Sodium Chloride 1,000 ml @ 60 mls/hr [id number] IV 12/17/23 22:00 12/18/23 00:07 60 MLS/HR Acetaminophen 325 mg Q4HP PRN PO 12/17/23 22:00 Acetaminophen/ Hydrocodone Bitart 1 tab Q4HP PRN PO 12/17/23 22:00 Ondansetron HCl 4 mg Q4HP PRN IV 12/17/23 22:00 Enoxaparin Sodium 40 mg DAILY SC 12/18/23 10:00 12/18/23 09:19 40 MG Piperacillin Sod/ Tazobactam Sod 100 ml @ 25 mls/hr Q6HR@0100,0700,1300,1900 IV 12/18/23 01:00 12/18/23 07:08 25 MLS/HR Aspirin 81 mg DAILY PO 12/18/23 10:00 12/18/23 09:18 81 MG Examination Female patient lying comfortably in bed, in no acute distress, reports no acute distress General: Well-built, afebrile, palor, mucosae are moist Cardiovascular: Regular S1 and S2. No murmurs, gallops or rubs. No JVD elevation. No pedal edema Respiratory: Normal B/L air entry on room air. Clear lung sounds on auscultation Abdomen: Soft, nontender, mildly tender, normoactive bowel sounds, no rebound tenderness, no organomegaly, no masses Genitourinary: Deferred MSK/skin: Mobilizes 4 limbs. Skin is dry and warm. No rash or bite dong seen in lower or upper extremities. Neurological: No motor, no sensitive deficits, normal speech. Pupils are isocoric and reactive. Psych/Mental Status: A/Ox4, mood is appropriate. laboratory and microbiology Laboratory Tests 12/18/23 08:21 Test 12/18/23 08:21 Range/Units Serum Glucose 83 74-106 mg/dL Labs and/or images reviewed: Labs reviewed by me, Image(s) reviewed by me Problem List/Assessment/Plan Problem List/Assessment/Plan Sepsis secondary to probable metastatic colon cancer to the liver Metastatic colon cancer of the sigmoid colon - newly diagnosed Iron-deficiency anemia secondary to metastatic colon cancer Multiple hepatic metastasis CT abdomen completed with contrast shows 6 cm segment of the sigmoid colon demonstrating irregular wall thickening suspicious for primary colon malignancy. GI consulted She denies lifetime history of colonoscopy/endoscopy. Patient has recent travel history to [facility] Ova and parasite, blood culture pending Peripheral smear pending H&H 9.1/9.8, hematocrit 75 - Iron panel remarkable for low iron/low% saturation/normal TIBC IV Zosyn q.6 hours, IV NS 60 mL/hour Lactic acid 2.2 on arrival, now downtrending 1.8 ESR 70, CRP 10, CK 409 Stool culture is negative, Hepatitis panel is unremarkable Transaminitis secondary to metastatic colon cancer versus alcohol use versus parasitic infection CT scan abdomen with contrast shows enlarged liver with numerous poorly enhancing hepatic lesions with the larger lesions measuring greater than 12 cm. Suspicious for metastatic lesions. Liver ultrasound completed 8x8x8 left liver lobe soft tissue mass tried hepatomegaly with increased hepatic echogenicity seen. Blood alcohol pending Fresh red bleeding per rectum secondary to ? hemorrhoid versus colon cancer Patient reports history of hemorrhoids, she has been constipated recently Clear liquid diet and pantoprazole 40 mg IV daily History of recurrent UTI UA unremarkable Patient reports dark yellow urine Urine bacterial culture History of CAD status post PTCA with 4 wisam in January 2018 at [facility] Chronic systolic heart failure status post Medtronic ICD Reports last echo done in September 2023 - LVEF was 35% Device Interrogation pending Holding home medication metoprolol 25 mg, Entresto 24-26 mg b.i.d. BNP 128 Echocardiogram pending Hypertension - controlled Holding antihypertensives given the low blood pressure History of insomnia Patient takes temazepam 0.5 mg p.r.n. Dyslipidemia Atorvastatin on hold given the transaminitis DVT prophylaxis On hold given the fresh red bleeding per rectum and positive occult blood GERD prophylaxis Pantoprazole Plan discussed with patient in which all questions have been answered Goals of care discussed with patient for more than 22 minutes, full code status Case discussed with Dr. Amin. GI consultation pending. Plan discussed with: Patient My Orders My Orders Orders - ALI,TIMOTHY RESIDENT Procedure Category Date Status Time Stool Bacterial TONYA 12/18/23 Uncollected Culture 09:21 Ova & Parasite Exam TONYA 12/18/23 Uncollected 09:21 Stool Occult Blood LAB 12/18/23 Logged 09:21 Scott Stain Slide LAB 12/18/23 In Process 09:21 Electrocardigram EKG 12/18/23 Logged 09:21 Iron Panel LAB 12/18/23 In Process 09:21 Potassium Effervesent PHA 12/18/23 Verified Tab (Klor-Con/Ef) 11:15 Magnesium LAB 12/18/23 Verified 11:10 Date of Service: Dec 18, 2023 Billing Provider: KALEB AMIN MD Common Visit Codes: [id number] INP/OBS CARE(HIGH) TIMOTHY CHACON RESIDENT Dec 18, 2023 11:33 KALEB AMIN MD Dec 18, 2023 19:10
[2023-12-18 11:55] LABS: Urine Blood 1+ /uL (Negative); Urine Clarity Turbid (Clear); Urine Color Light-Yellow (Yellow); Urine Hyaline Cast FEW /lpf (0 - 2); Urine Protein, UAD TRACE (Negative); Urine Specific Gravity 1.011 (1.001-1.035); Urine Urobilinogen Normal (Negative); Urine WBC 10 /hpf (0 - 5)
[2023-12-18 12:01] LABS: Amphetamine Screen, Urine Neg (NEGATIVE); Barbiturate Scree,Urine Neg (NEGATIVE); Benzodiazephine Screen, Urine Neg (NEGATIVE); Cannabinoid Screen, Urine Neg (NEGATIVE); Cocaine Screen, Urine Neg (NEGATIVE); Opiate Scree,Urine Neg (NEGATIVE); Phencyclidine Screen, Urine Neg (NEGATIVE)
[2023-12-18 13:48] LABS: Hepatitis A Total Antibody Positive (Negative); Hepatitis B Surface Antibody Negative (Negative); Hepatitis B Surface Antigen Negative (Negative)
[2023-12-18 13:49] LABS: Hepatitis C Antibody Negative (Negative)
--- NOTE | 2023-12-18 13:56 | DVH ---
Exam: CT CT AB PEL WITH IV CON ONLY History: HEPATIC MASS Comparison Study: None available at time of dictation. TECHNIQUE: A digital mine laborer image was obtained. During the uneventful, intravenous administration of c ontrast material, multislice data acquisition was obtained through the abdomen and pelvis. The data s et was subsequently reconstructed into axial images. Images were reviewed on a work station using a c ombination of axial and multiplanar using a variety of window levels and settings. 100 cc of Omnipaqu e 300 contrast was injected intravenously. All CT scans at this medical facility are performed using dose modulation techniques as appropriate t o a performed exam including the following:Automated exposure control was utilized; adjustment of the MA and/or KV according to patient size; and use of iterative reconstruction technique. Radiation Dose Information: CT Dose: CTDI volume is 8.44 mGy. Dose-length product is 950.85 mGy*cm FINDINGS: There is an approximately 6 cm segment of the sigmoid colon demonstrating irregular wall thickening s uspicious for primary colon malignancy ( portal venous phase axial image 70 ). There is no pericoloni c free fluid or free air. There are no dilated small or large bowel loops. Air intermixed with stool seen in the colon. The liver is enlarged with numerous poorly enhancing hepatic lesions. The larger lesions measure gre ater than 12 cm. These are suspicious for metastatic lesions. The gallbladder is not adequately seen and may be contracted or surgically absent. The pancreas, kidneys, adrenal glands, and spleen appear within normal limits. There are edematous changes throughout the mesentery. There is no gross evidence of abdominal lymphad enopathy. There is no free fluid or free air. The abdominal aorta and IVC appear within normal limits. The bladder appears unremarkable. The uterus is surgically absent. There is no gross evidence of a p elvic mass or lymphadenopathy. There is no free fluid collection. There is scarring versus atelectasis in the lung bases. There is no acute osseous abnormality. IMPRESSION: 1. Approximately 6 cm segment of the sigmoid colon demonstrating irregular wall thickening suspicious for primary colon malignancy. Correlation with colonoscopy is recommended. 2. Enlarged liver with numerous poorly enhancing hepatic lesions with the larger lesions measuring gr eater than 12 cm. These are suspicious for metastatic lesions.. HS:Y
[2023-12-18 16:42] LABS: COVID19 ANTIGEN SOFIA FIA NEGATIVE (NEGATIVE)
[2023-12-18] MEDS: PANTOPRAZOLE 40 MG/10 ML VIAL INJ IV ONE (17:27)
[2023-12-18] MEDS: POTASSIUM EFFERVESENT TAB 25 MEQ PO ONE (17:28)
[2023-12-18] MEDS: HYDROcodone-ACET 5/325MG TAB PO PRN (17:40)
--- NOTE | 2023-12-18 21:56 | DVHINCON2 ---
Date of service: Dec 18, [address] Sanchez Reason for Consultation Possible sigmoid mass possible sigmoidoscopy possible metastatic liver disease History of Present Illness This is a 63-year-old female with past medical history of chronic systolic heart failure, status post defibrillator placement, CAD with status post PTCA multiple stents, hyperlipidemia, hypertension, recurrent UTI, hemorrhoid, partial hysterectomy presented to the ED with a chief complaint of abdominal pain for last 1 week prior to this admission. Patient states that since last she has been experiencing abdominal pain, most prominent on suprapubic area and lower quadrants, does not radiate, it is cramping like pain, moderate to severe, worsens during bowel movements and some time associated with right red blood. She also states that for the last couple of months she has been experiencing small amount of bowel movements, but they are well-formed. Past Medical History Coronary artery disease, congestive heart failure Ejection fraction 40% UTIs recurrent Past Surgical History Angioplasty Coronary stent Tonsillectomy Pacemaker Hysterectomy Cataracts Family History: Cardiovascular disease G8 MOTHER Cerebrovascular accident (CVA) G8 MOTHER Diabetes mellitus G8 MOTHER Thyroid disease G8 MOTHER Allergies: Coded Allergies: Lisinopril (Verified Allergy, Unknown, 12/29/17) Morphine (Verified Allergy, Unknown, 09/21/17) Home Meds Reported Medications Sacubitril-Valsartan (Entresto 24-26 mg) 1 Tab Tab, 1 TAB PO BID, TAB 12/18/23 Temazepam (Restoril) 15 Mg Cp, 1 CAP PO QPM PRN, #30 CAP 1 Refill 09/22/17 Metoprolol Succinate (Toprol Xl) 25 Mg Tab, 25 MG PO DAILY, TAB 09/21/17 Atorvastatin Calcium (Lipitor) 80 Mg Tab, 80 MG PO HS, TAB 09/21/17 Aspirin (Aspir-Low) 81 Mg Tab, 81 MG PO DAILY for 30 Days, MG 09/21/17 Discontinued Reported Medications Ticagrelor Base (BRILINTA) 90 Mg Tab, 90 MG PO BID, TAB 09/21/17 Current Medications Current Medications Medications (Trade) Dose Ordered Sig/Saige Route PRN Reason Start Time Stop Time Status Last Admin Sodium Chloride (Saline Lock Ns) 10 ml Q8HR IV 12/17/23 22:00 12/18/23 14:00 Sodium Chloride 1,000 ml @ 60 mls/hr [id number] IV 12/17/23 22:00 12/18/23 13:29 DC 12/18/23 00:07 Acetaminophen (Tylenol Tablet) 325 mg Q4HP PRN PO MILD PAIN (1-3 PAIN SCALE) 12/17/23 22:00 Acetaminophen/ Hydrocodone Bitart ([place] 5/325MG Tab) 1 tab Q4HP PRN PO MODERATE PAIN (4-6 PAIN SCALE) 12/17/23 22:00 12/18/23 17:40 Ondansetron HCl (Zofran) 4 mg Q4HP PRN IV NAUSEA / VOMITING 12/17/23 22:00 Enoxaparin Sodium (Lovenox) 40 mg DAILY SC 12/18/23 10:00 12/18/23 11:42 DC 12/18/23 09:19 Nitroglycerin (Ntrostat Sublingual) 0.4 mg Q5MINP PRN SL FOR CHEST PAIN 12/17/23 22:00 12/18/23 02:44 DC Morphine Sulfate 2 mg Q30M PRN IV FOR CHEST PAIN 12/17/23 22:00 12/18/23 02:44 DC Piperacillin Sod/ Tazobactam Sod 100 ml @ 25 mls/hr Q6HR@0100,0700,1300,1900 IV 12/18/23 01:00 12/18/23 17:33 Aspirin (Ecotrin Enteric Coated Tablet) 81 mg DAILY PO 12/18/23 10:00 12/18/23 09:18 Atorvastatin Calcium (Lipitor) 80 mg HS PO 12/18/23 22:00 12/18/23 08:13 DC Pantoprazole Sodium (Protonix) 40 mg DAILY IV 12/19/23 10:00 Vital Signs Vital Signs Date Time Temp Pulse Resp B/P (MAP) Pulse Ox O2 Delivery O2 Flow Rate FiO2 12/18/23 17:00 98.5 84 17 94/59 (71) 96 98.5 12/18/23 08:00 Room Air* 0 21 Physical Exam Hemodynamically stable Full physical examination deferred for now Labs/Diagnostic Data Labs Test 12/18/23 13:03 12/18/23 12:28 12/18/23 11:03 12/18/23 08:21 Range/Units Stool Occult Blood Positive Negative Stool Occult Blood Sample #3 Negative SARS-CoV-2 Antigen (Rapid) Negative NEGATIVE Urine Color Light-yellow Yellow Urine Clarity Turbid H Clear Urine pH 6.0 5.0-9.0 Urine Specific Equality 1.011 1.001-1.035 Urine Protein Trace H Negative Urine Ketones Negative Negative Urine Blood 1+ H Negative /uL Urine Nitrite Negative Negative Urine Bilirubin Negative Negative Urine Urobilinogen Normal Negative mg/dL Urine Leukocyte Esterase 3+ Negative /uL Urine RBC 2 0 - 4 /hpf Urine WBC 10 0 - 5 /hpf Urine Squamous Epithelial Cells Few <5 /hpf Urine Bacteria None seen None Seen /hpf Urine Hyaline Casts Few 0 - 2 /lpf Urine Glucose Normal Normal mg/dL White Blood Count 9.1 4.4-10.8 10^3/uL Red Blood Count 4.02 4.0-5.20 10^6/uL Hemoglobin 9.8 L 12.2-16.2 g/dL Hematocrit 30.3 L 36.0-46.0 % Mean Corpuscular Volume 75.3 L 80.0-100.0 fL Mean Corpuscular Hemoglobin 24.4 L 28.0-32.0 pg Mean Corpuscular Hemoglobin Concent 32.4 32.0-36.0 g/dL Red Cell Distribution Width 19.0 H 11.8-14.3 % Platelet Count 431 140-450 10^3/uL Mean Platelet Volume 8.0 6.9-10.8 fL Neutrophils (%) (Auto) 80.1 H 37.0-80.0 % Lymphocytes (%) (Auto) 10.2 10.0-50.0 % Monocytes (%) (Auto) 8.2 0.0-12.0 % Eosinophils (%) (Auto) 0.7 0.0-7.0 % Basophils (%) (Auto) 0.8 0.0-2.0 % Neutrophils # (Auto) 7.3 1.6-8.6 10 ^3/uL Lymphocytes # (Auto) 0.9 0.4-5.4 10 ^3/uL Monocytes # (Auto) 0.7 0-1.3 10 ^3/uL Eosinophils # (Auto) 0.1 0-0.8 10 ^3/uL Basophils # (Auto) 0.1 0-0.2 10 ^3/uL Nucleated Red Blood Cells 0.0 % Erythrocyte Sedimentation Rate 75 H 0-20 mm/hr Prothrombin Time 17.4 H 9.3-11.8 sec Prothrombin Time INR 1.71 H 0.9-1.15 Activated Partial Thromboplast Time 38.2 H 24.5-34.5 SEC Sodium Level 133 L 136-145 mmol/L Potassium Level 3.3 L 3.5-5.1 mmol/L Chloride Level 103 98-107 mmol/L Carbon Dioxide Level 19 L 20-31 mmol/L Anion Gap 11 5-15 Blood Urea Nitrogen 11 9-23 mg/dL Creatinine 0.78 0.550-1.02 mg/dL Glomerular Filtration Rate Calc 86 >90 mL/min BUN/Creatinine Ratio 14.1 10.0-20.0 Serum Glucose 83 74-106 mg/dL Hemoglobin A1c 5.1 <5.7 % A1C Calcium Level 8.4 L 8.7-10.4 mg/dL Magnesium Level 2.1 1.6-2.6 mg/dL Iron Level 25 L 50-170 ug/dL Total Iron Binding Capacity 323 250-425 ug/dL Percent Iron Saturation 7.7 L 15-50 % Total Bilirubin 1.4 H 0.2-1.0 mg/dL Aspartate Amino Transferase (AST) 412 H 13-40 U/L Alanine Aminotransferase (ALT) 55 H 7-40 U/L Alkaline Phosphatase 768 H 46-116 U/L Creatine Kinase 409 H 34-145 U/L C-Reactive Protein High Sensitivity 10.15 H <1.0 mg/dL B-Type Natriuretic Peptide 128.60 0-100 pg/mL Total Protein 6.7 5.7-8.2 g/dL Albumin 3.3 3.2-4.8 g/dL Vitamin B12 Level 2343 H 211-911 pg/mL Vitamin D 25-Hydroxy 44.3 30.0-100 ng/mL Folic Acid 6.56 >5.38 ng/mL Thyroid Stimulating Hormone (TSH) 2.84 0.55-4.78 uIU/mL Plasma/Serum Blood Alcohol < 3.0 <10 mg/dL Hepatitis A IgM Antibody Negative Hepatitis A Antibody Total Positive H Negative Hepatitis B Surface Antigen Negative Negative Hepatitis B Surface Antibody Negative Negative Hepatitis B Core Total Antibody Negative Negative Hepatitis B Core IgM Antibody Negative Hepatitis C Antibody Negative Negative Test 12/18/23 08:02 12/17/23 21:09 Range/Units Urine Opiates Screen Neg NEGATIVE Urine Fentanyl Screen Neg NEGATIVE Urine Barbiturates Screen Neg NEGATIVE Urine Phencyclidine Screen Neg NEGATIVE Urine Amphetamines Screen Neg NEGATIVE Urine Benzodiazepines Screen Neg NEGATIVE Urine Cocaine Screen Neg NEGATIVE Urine Cannabinoids Screen Neg NEGATIVE Lactic Acid Level 1.8 0.4-2.0 mmol/L Microbiology Date/Time Source Procedure Growth Status 12/18/23 13:03 Stool Stool Culture - Preliminary Resulted 12/18/23 13:03 Stool Shiga Toxin I & II - Final Resulted 12/17/23 18:57 Blood Blood Culture - Preliminary NO GROWTH AFTER 24 HOURS OF INCU[address]ATION. Resulted CT SCAN ABD PELVIS IMPRESSION: 1. Approximately 6 cm segment of the sigmoid colon demonstrating irregular wall thickening suspicious for primary colon malignancy. Correlation with colonoscopy is recommended. 2. Enlarged liver with numerous poorly enhancing hepatic lesions with the larger lesions measuring greater than 12 cm. These are suspicious for metastatic lesions.. Problems(with codes): (1) Metastases to the liver (2) Abnormal finding on GI tract imaging (3) Abdominal pain (4) Liver disease (5) Heart failure with reduced ejection fraction (6) History of alcohol abuse Plan/Recommendation Plan Hold Lovenox and aspirin Tap water enemas in the a.m. I will schedule a possible sigmoidoscopy with biopsy on 12/19/2023 to determine if there was a sigmoid mass and biopsy Plan discussed with: Other (Dr Sanchez) ROD BUCKLEY MD Dec 18, 2023 21:56
[2023-12-18] MEDS ORDERED: ATORVASTATIN 20 MG TAB PO SCH (22:00)
[2023-12-18] MEDS: MELATONIN 5 MG TAB PO ONE (22:12)
[2023-12-19] VITALS (8 sets, daily range): BP systolic 82–89; BP diastolic 50–52; PULSE 83–94; RESP 17–20; TEMP 97.5–98.9; O2SAT 95–100
[2023-12-19] MEDS: SODIUM CHLORIDE 0.9% 500 ML IV ONE (06:45)
[2023-12-19 08:00] LABS: Hemoglobin 9.3 g/dL (12.2-16.2); Monocytes # (auto) 0.7 10 ^3/uL (0-1.3)
[2023-12-19 08:04] LABS: Basophils # (auto) 0 10 ^3/uL (0-0.2); Basophils % (auto) 0.5 % (0.0-2.0); Eosinophils # (auto) 0 10 ^3/uL (0-0.8); Eosinophils % (auto) 0.5 % (0.0-7.0); Hematocrit 28.8 % (36.0-46.0); Lymphocytes # (auto) 0.8 10 ^3/uL (0.4-5.4); Lymphocytes % (auto) 10.6 % (10.0-50.0); Mean Corpuscular Hgb Conc. 32.1 g/dL (32.0-36.0); Mean Corpuscular Volume 77.9 fL (80.0-100.0); Monocytes % (auto) 9.9 % (0.0-12.0); Neutrophils # (auto) 5.7 10 ^3/uL (1.6-8.6); Neutrophils % (auto) 78.5 % (37.0-80.0); Nucleated Red Blood Cells % 0.1 %; Platelet Count (auto) 375 10^3/uL (140-450); White Blood Cell 7.3 10^3/uL (4.4-10.8)
[2023-12-19 08:09] LABS: Calcium 8.3 mg/dL (8.7-10.4); Chloride 107 mmol/L (98-107); Sodium 137 mmol/L (136-145)
[2023-12-19 08:10] LABS: Anion Gap 12 (5-15); Carbon Dioxide 18 mmol/L (20-31)
[2023-12-19 08:15] LABS: BUN/Creatinine Ratio 14.3 (10.0-20.0); Blood Urea Nitrogen 10 mg/dL (9-23); Glucose 80 mg/dL (74-106)
--- NOTE | 2023-12-19 09:49 | DVHSR ---
APPROVED REPORT EXAM: LIMITED Two-dimensional and M-mode echocardiogram with Doppler and color Doppler. Blood Pressure: 93/49 mmHg INDICATION Chest Pain Surgery/Intervention Pacemaker: RISK FACTORS Height: 5' 2", Weight: 142 DIMENSIONS LVDd4.4 (3.8-5.7cm)LA (2D)3.2 (1.9-4.0cm)Aortic Root3.0 (2.0-3.7cm) LVDs3.7 (2.5-4.0cm)LA (MM) (1.9-4.0cm)Aortic Cusp Exc1.6 (1.5-2.0cm) EF (%) 35.0 (55-70%)Rt. Atrium3.5 (1.9-4.0cm)Asc. Aorta cm IVSd0.8 (0.7-1.1cm)RV (D) (1.8-2.4cm) PWd0.9 (0.7-1.1cm) Mitral Valve MitralMitral Stenosis E wave0.50m/sMV Mean GR.mmHg A wave0.90m/sMV Peak GR.mmHg E/A ratio0.62D MVAcm2 Aortic Valve Aortic ValveAortic Stenosis V11.10m/Ceci Mean GR.3mmHg V21.20m/Ceci Peak GR.6mmHg LVOT Diameter2.0 (1.8-2.4cm)Doppler AVA2.88cm2 Other Information Quality : Technically LimitedRhythm : Technically limited study due to body habitus, patient breathing affects images. Conclusion Moderately dilated left ventricular. Severely reduced left ventricular systolic function with estima horace ejection fraction of 35%. There is anterior anteroapical wall akinesia. Moderately reduced left ventricular systolic function, Normal right and left atrial size and dimension. The aortic valve is mildly thickened and sclerotic. The mitral valve appears normal structure and function. The tricuspid valve appears grossly normal in structure and function. The pulmonary valve is grossly normal. No pericardial effusion.
[2023-12-19] MEDS: PANTOPRAZOLE 40 MG/10 ML VIAL INJ IV SCH (10:02)
[2023-12-19] MEDS: SODIUM CHLORIDE 0.9% 1,000 ML IV ONE (11:15)
[2023-12-19] MEDS ORDERED: SODIUM CHLORIDE LOCK 10 ML ONE (12:56)
[2023-12-19] MEDS: MIDAZOLAM HCL 5 MG/ML-1ML VIAL ONE (13:52)
[2023-12-19] MEDS: fentaNYL CITRATE 100 MCG/2 ML VL ONE (13:52)
[2023-12-19] MEDS: diphenhdrAMINE HCL 50 MG/1 ML VL ONE (13:52)
--- NOTE | 2023-12-19 14:37 | DVHPNRES ---
Progress Note Date Seen: Dec 19, 2023 Resident Creating Document: TIMOTHY CHACON RESIDENT Medical Necessity Reason Pt with a Central, PICC or Fol: No Subjective Review of Systems This is a 63-year-old female patient with PMHx of systolic heart failure status post Medtronic ICD placement -last EF 35% in September2023, CAD status post 4 WISAM in January 2018 , dyslipidemia, recurrent UTIs and pyelonephritis for the past 4 months, hypertension and internal hemorrhoids presented to the ER with a chief complaint of suprapubic abdominal pain and constipation. Patient recently visited [facility] in August this year with her when she went to the [place] bare[place] and had bite dong all over the body, following which she has been getting recurrent UTIs and pyelonephritis starting September, also reports dry cough since the visit. She reports that the abdominal pain started 12/10 and is associated with tenesmus, she only passes small pellet-like stools associated with mucus and a lot of flatus. Also reports history of internal hemorrhoids and that she is experiencing bright red bleed per rectum for the past few days. She denies lifetime history of colonoscopy/endoscopy. Reports nausea, chills on and off but no fever. Denies lifetime history of STI, is monogamous with the . Her did not get any symptoms after the trip. PCP Jodie Rico Primary Class Teacher: Slava Actuarial Manager Dr Schrader Past surgical history; Partial hysterectomy Family history: Unremarkable Social history: Lives with , denies smoking, drank heavily during the vacation - quit since, denies illicit drug 12/17 - Patient seen and examined in bed [address]. reports no acute distress, went to have a bowel movement but only passed gas/mucus and a small stool. She has laboratory reports with her from the past, shows transaminitis starting in 07/10. 12/18 - patient reported reactive complaint, undergoing sigmoidoscopy today. Blood pressure is 89/50, IV NS bolus of 500 cc and 250 cc afterwards administered. Blood pressure did not responded to IV fluids. Scheduled for image guided liver biopsy on 12/21 by IR. Objective vital signs Vital Sign Date Time Temp Pulse Resp B/P (MAP) Pulse Ox O2 Delivery O2 Flow Rate FiO2 12/19/23 13:00 97.7 94 17 89/50 (63) 99 97.7 12/18/23 20:00 Room Air* 0 21 Total Intake and Output 12/18/23 12/18/23 12/19/23 14:59 22:59 06:59 Intake Total 100 ml 700 ml 100 ml Output Total 450 ml Balance 100 ml 700 ml -350 ml medications Current Medications Medications Dose Ordered Sig/Saige Route Start Time Stop Time Status Last Admin Dose Admin Sodium Chloride 10 ml Q8HR IV 12/17/23 22:00 12/19/23 06:00 10 ML Acetaminophen 325 mg Q4HP PRN PO 12/17/23 22:00 Acetaminophen/ Hydrocodone Bitart 1 tab Q4HP PRN PO 12/17/23 22:00 12/18/23 22:11 1 TAB Ondansetron HCl 4 mg Q4HP PRN IV 12/17/23 22:00 Piperacillin Sod/ Tazobactam Sod 100 ml @ 25 mls/hr Q6HR@0100,0700,1300,1900 IV 12/18/23 01:00 12/19/23 07:17 25 MLS/HR Pantoprazole Sodium 40 mg DAILY IV 12/19/23 10:00 12/19/23 10:02 40 MG Examination Female patient lying comfortably in bed, in no acute distress, reports no acute distress General: Well-built, afebrile, palor, mucosae are moist Cardiovascular: Regular S1 and S2. No murmurs, gallops or rubs. No JVD elevation. No pedal edema Respiratory: Normal B/L air entry on room air. Clear lung sounds on auscultation Abdomen: Soft, nontender, mildly tender, normoactive bowel sounds, no rebound tenderness, no organomegaly, no masses Genitourinary: Deferred MSK/skin: Mobilizes 4 limbs. Skin is dry and warm. No rash or bite dong seen in lower or upper extremities. Neurological: No motor, no sensitive deficits, normal speech. Pupils are isocoric and reactive. Psych/Mental Status: A/Ox4, mood is appropriate. laboratory and microbiology Laboratory Tests 12/19/23 07:12 Test 12/19/23 07:12 Range/Units Serum Glucose 80 74-106 mg/dL Microbiology Date/Time Source Procedure Growth Status 12/18/23 13:03 Stool Stool Culture - Preliminary Resulted 12/18/23 13:03 Stool Shiga Toxin I & II - Final Resulted 12/18/23 12:29 Nose MRSA Screen - Final Complete 12/18/23 11:03 Voided Urine Urine Culture - Preliminary Resulted 12/17/23 18:57 Blood Blood Culture - Preliminary NO GROWTH AFTER 24 HOURS OF INCUBATION. 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 GI consulted - Flexible sigmoidoscopy with biopsy completed, showed circumferential polypoid ulcerated inflamed and partially obstructing, distal descending colon mass close to the proximal sigmoid at about 45-50 cm above the anal verge. 1+ internal hemorrhoids She denies lifetime history of colonoscopy/endoscopy. Patient has recent travel history to [facility] Ova and parasite pending, prelim blood culture negative Peripheral smear pending H&H 9.3/28.8, hematocrit 77 - Iron panel remarkable for low iron/low% saturation/normal TIBC DC IV Zosyn q.6 hours, IV NS 60 mL/hour, started amoxicillin 12/19/23 to 12/20 Lactic acid 2.2 on arrival, now downtrending 1.8 ESR 70, CRP 10, CK 409 Tumor markers CEA 326, AFP 2 Stool culture is negative, Hepatitis panel is unremarkable Scheduled for image guided liver biopsy on 12/21 by IR. NPO except for meds starting 12/21 00:00. ?NSTEMI II Echocardiogram showed Moderately dilated left ventricular. Severely reduced left ventricular systolic function with estimated ejection fraction of 35%. There is anterior anteroapical wall akinesia. EKG completed, reviewed - no ST changes. Cardiology consultation -outpatient stress test recommended. Resume GDMT when blood pressure normalizes. Troponin 48, 42 downtrending Transaminitis secondary to metastatic colon cancer versus alcohol use versus parasitic infection CT scan abdomen with contrast shows enlarged liver with numerous poorly enhancing hepatic lesions with the larger lesions measuring greater than 12 cm. Suspicious for metastatic lesions. Liver ultrasound completed 8x8x8 left liver lobe soft tissue mass tried hepatomegaly with increased hepatic echogenicity seen. Blood alcohol pending <3 Fresh red bleeding per rectum secondary to ? hemorrhoid versus colon cancer Patient reports history of hemorrhoids, she has been constipated recently Pantoprazole 40 mg IV daily History of recurrent UTI UA unremarkable Patient reports dark yellow urine Urine bacterial culture History of CAD status post PTCA with 4 wisam in January 2018 at [facility] Chronic systolic heart failure status post Medtronic ICD Reports last echo done in September 2023 - LVEF was 35% Device Interrogation pending Holding home medication metoprolol 25 mg, Entresto 24-26 mg b.i.d. BNP 128 Echocardiogram showed Moderately dilated left ventricular. Severely reduced left ventricular systolic function with estimated ejection fraction of 35%. There is anterior anteroapical wall akinesia. Hypertension - controlled Holding antihypertensives given the low blood pressure History of insomnia Patient takes temazepam 0.5 mg p.r.n. Dyslipidemia Atorvastatin on hold given the transaminitis DVT prophylaxis SCDs On hold given the fresh red bleeding per rectum and positive occult blood GERD prophylaxis Pantoprazole PT eval requested Diet Resume clear liquid diet advance to full liquid Plan discussed with patient in which all questions have been answered Goals of care discussed with patient for more than 22 minutes, full code status Case discussed with Dr. Amin. Scheduled for image guided liver biopsy on 12/21 by IR. Plan discussed with: Patient My Orders My Orders Orders - TIMOTHY CHACON Procedure Category Date Status Time * Radiologist Consult CONS 12/18/23 Transmitted 19:55 Carbohydrate Antigen LAB 12/18/23 In Process 19-9 Tap Water Enema ORDERS 12/19/23 Transmitted 06:00 Communication Order ORDERS 12/18/23 Transmitted 20:16 Electrocardigram EKG 12/19/23 Logged 11:09 Sodium Chloride 0.9% PHA 12/19/23 In Process 11:15 * Cardiology Consult CONS 12/19/23 Transmitted 11:09 Date of Service: Dec 19, 2023 Billing Provider: KALEB AMIN MD Common Visit Codes: [id number] INP/OBS CARE(HIGH) TIMOTHY CHACON Dec 19, 2023 14:37 KALEB AMIN MD Dec 20, 2023 12:44
--- NOTE | 2023-12-19 14:53 | DVHOP2 ---
Operative Report DATE OF OPERATION: 12/19/23 PROCEDURE: Flexible sigmoidoscopy with biopsy and Latoya ink tattoo PREOPERATIVE INDICATION: The patient is a 63 -year-old female undergoing colonoscopy for evaluation of suspected sigmoid mass with metastatic liver disease POSTOPERATIVE DIAGNOSES: 1. Patient had a distal descending colon mass close to the proximal sigmoid at about 45-50 cm above the anal verge. This was circumferential polypoid ulcerated inflamed and partially obstructing and I could not advance my colonoscope through Multiple biopsies were obtained from the center and the distal margins of the mass and the distal edge was marked with Latoya ink 2. Slightly poor prep with some formed stool and 1+ internal hemorrhoids PROCEDURE PERFORMED BY: Rod Tom M.D. SCOPE: Olympus videocolonoscope. ASA CLASS: 3 PREOPERATIVE MEDICATIONS: Versed 3 mg, Fentanyl 75 mcg, Benadryl 50 mg PROCEDURE IN DETAIL: After obtaining an informed consent, the patient was placed on left lateral decubitus position. She was then sedated with the above medications. A rectal examination was performed that was normal. The colonoscope was then passed through the anus into the rectosigmoid Prep was somewhat limited due to residual stool. After aspiration irrigation I was able to advance my colonoscope through the sigmoid up to the distal edge of the mass That appeared to be at about 45-50 cm above the anal verge. It seemed to be involving more of the distal descending colon Possibly close to the proximal sigmoid. I was not able to advance the colonoscope through this area because it was narrowed ulcerated partially obstructing Multiple biopsies were obtained from the central area and also the distal edge of the mass. Latoya ink was applied to the distal edge of the mass. The colonoscope was then withdrawn. No other masses or polyps were seen. On retroflexion she had 1+ hemorrhoids The patient tolerated the procedure well without difficulty. WITHDRAWAL TIME: Not applicable QUALITY OF THE PREP: Gable Bowel Prep score: Poor and not applicable COMPLICATIONS : None SPECIMENS: Biopsies of distal descending proximal sigmoid obstructing mass DISPOSITION: Transfer back to the floor Stable PLAN: 1. Await biopsy results 2. Resume clear liquid diet advance to full liquid 3. Because of the obstructing nature of this mass like area I suspect she is going to need to have a partial colectomy 4. Oncology consult and surgical consult 5. 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 CEA level and monitor CBC and labs ROD TOM MD Dec 19, 2023 14:53
[2023-12-19] MEDS ORDERED: EMPA1TAB PO (16:52)
[2023-12-19] MEDS ORDERED: PIPERACILLIN-TAZOB 3.375GM 100 ML IV SCH (17:00)
--- NOTE | 2023-12-19 17:23 | DVHINCON2 ---
Date Seen: Dec 19, 2023 Referring Physician Reason for Consultation LVEF 35% and anterior anteroapical wall akinesia. History of Present Illness 63-year-old female patient with past medical history of chronic systolic heart failure, cardiac arrest status post defibrillator placement on 2017 , coronary artery disease status post PTCA multiple stents, hyperlipidemia, hypertension, recurrent UTI, hemorrhoids, who presented to the emergency department with a chief complaint of abdominal pain for the last week prior admission. Patient reports suprapubic abdominal pain described as cramping like and rated as moderate/severe that worsens with bowel movements and sometimes associated with right red blood. Cardiology was consulted because of 35% ejection fraction on recent echocardiogram and anteroapical wall akinesia. Patient was evaluated at bedside, she reports not having any chest pain or shortness of breadth symptoms and she has been dealing with these low ejection fraction since the episode of myocardial infarction in 2018, patient is totally asymptomatic and physical examination was totally normal, patient reports being compliant with her medications for heart failure and denies previous episodes of CHF exacerbations since January 2018. Patient was advised to follow-up with Cardiology after discharge for a stress test. Family History: Cardiovascular disease G8 MOTHER Cerebrovascular accident (CVA) G8 MOTHER Diabetes mellitus G8 MOTHER Thyroid disease G8 MOTHER Allergies: Coded Allergies: Lisinopril (Verified Allergy, Unknown, 12/29/17) Morphine (Verified Allergy, Unknown, 09/21/17) Home Meds Reported Medications Empagliflozin (Jardiance) 10 Mg Tab, 10 MG PO DAILY, TAB 12/19/23 Sacubitril-Valsartan (Entresto 24-26 mg) 1 Tab Tab, 1 TAB PO BID, TAB 12/18/23 Temazepam (Restoril) 15 Mg Cp, 1 CAP PO QPM PRN for FOR INSOMNIA, #30 CAP 1 Refill 09/22/17 Metoprolol Succinate (Toprol Xl) 25 Mg Tab, 25 MG PO DAILY, TAB 09/21/17 Atorvastatin Calcium (Lipitor) 80 Mg Tab, 80 MG PO HS, TAB 09/21/17 Aspirin (Aspir-Low) 81 Mg Tab, 81 MG PO DAILY for 30 Days, MG 09/21/17 Discontinued Reported Medications Ticagrelor Base (BRILINTA) 90 Mg Tab, 90 MG PO BID, TAB 09/21/17 Current Medications Current Medications Medications (Trade) Dose Ordered Sig/Saige Route PRN Reason Start Time Stop Time Status Last Admin Atorvastatin Calcium (Lipitor) 80 mg HS PO 12/18/23 22:00 12/18/23 08:13 DC Pantoprazole Sodium (Protonix) 40 mg DAILY IV 12/19/23 10:00 12/19/23 10:02 Piperacillin Sod/ Tazobactam Sod 100 ml @ 25 mls/hr Q8H IV 12/19/23 17:00 Review of Systems Constitutional: No: Fever, Chills, Sweats, Weakness, Malaise, Other Eyes: No: Pain, Vision change, Conjunctivae inflammation, Eyelid inflammation, Other, Redness ENT: No: Ear pain, Ear discharge, Nose pain, Nose discharge, Nose congestion, Mouth pain, Mouth swelling, Throat pain, Throat swelling, Other Respiratory: No Wheezing, Hemoptysis, Pleuritic Pain, Sputum, Wheezing, Other Cardiovascular: No: Chest Pain, Palpitations, Orthopnea, Paroxysmal Noc. Dyspnea, Edema, Lt Headedness, Other Gastrointestinal: No: Nausea, Vomiting, Abdominal Pain, Diarrhea, Constipation, Melena, Hematochezia, Other Musculoskeletal: No: other, neck pain, shoulder pain, arm pain, back pain, hand pain, leg pain, foot pain Neurological:; No: Weakness, Numbness, Incoordination, Change in speech, Confusion, Seizures Vital Signs Vital Signs Date Time Temp Pulse Resp B/P (MAP) Pulse Ox O2 Delivery O2 Flow Rate FiO2 12/19/23 14:45 Room Air 0 97 12/19/23 14:45 96 20 90/66 (74) 97 12/19/23 14:17 98.2 98.2 Physical Exam Examination General Appearance: Alert, Oriented X3, Cooperative, No acute distress Respiratory: Clear to auscultation, Normal air movement Cardiovascular: Regular rate, Normal S1, Normal S2 Abdominal: Normal bowel sounds Extremities: No cyanosis, No edema, Normal pulses, No tenderness/swelling Skin: No rashes, No breakdown Neuro: Normal gait, Normal speech, Strength at 5/5 X4 ext, Normal tone, Sensation intact, Cranial nerves 3-12 NL, Reflexes 2+ Psych/Mental Status: Mental status NL, Mood NL Labs/Diagnostic Data Labs Test 12/19/23 16:03 12/19/23 10:40 12/19/23 07:12 12/18/23 13:03 Range/Units Troponin I High Sensitivity 42 *H </=34 ng/L White Blood Count 7.3 4.4-10.8 10^3/uL Red Blood Count 3.70 L 4.0-5.20 10^6/uL Hemoglobin 9.3 L 12.2-16.2 g/dL Hematocrit 28.8 L 36.0-46.0 % Mean Corpuscular Volume 77.9 L 80.0-100.0 fL Mean Corpuscular Hemoglobin 25.0 L 28.0-32.0 pg Mean Corpuscular Hemoglobin Concent 32.1 32.0-36.0 g/dL Red Cell Distribution Width 19.0 H 11.8-14.3 % Platelet Count 375 140-450 10^3/uL Mean Platelet Volume 7.9 6.9-10.8 fL Neutrophils (%) (Auto) 78.5 37.0-80.0 % Lymphocytes (%) (Auto) 10.6 10.0-50.0 % Monocytes (%) (Auto) 9.9 0.0-12.0 % Eosinophils (%) (Auto) 0.5 0.0-7.0 % Basophils (%) (Auto) 0.5 0.0-2.0 % Neutrophils # (Auto) 5.7 1.6-8.6 10 ^3/uL Lymphocytes # (Auto) 0.8 0.4-5.4 10 ^3/uL Monocytes # (Auto) 0.7 0-1.3 10 ^3/uL Eosinophils # (Auto) 0 0-0.8 10 ^3/uL Basophils # (Auto) 0 0-0.2 10 ^3/uL Nucleated Red Blood Cells 0.1 % Sodium Level 137 136-145 mmol/L Potassium Level 4.0 3.5-5.1 mmol/L Chloride Level 107 98-107 mmol/L Carbon Dioxide Level 18 L 20-31 mmol/L Anion Gap 12 5-15 Blood Urea Nitrogen 10 9-23 mg/dL Creatinine 0.70 0.550-1.02 mg/dL Glomerular Filtration Rate Calc 98 >90 mL/min BUN/Creatinine Ratio 14.3 10.0-20.0 Serum Glucose 80 74-106 mg/dL Calcium Level 8.3 L 8.7-10.4 mg/dL Stool Occult Blood Positive Negative Stool Occult Blood Sample #3 Negative Test 12/18/23 12:28 12/18/23 11:03 12/18/23 08:21 12/18/23 08:02 Range/Units SARS-CoV-2 Antigen (Rapid) Negative NEGATIVE Urine Color Light-yellow Yellow Urine Clarity Turbid H Clear Urine pH 6.0 5.0-9.0 Urine Specific [place] 1.011 1.001-1.035 Urine Protein Trace H Negative Urine Ketones Negative Negative Urine Blood 1+ H Negative /uL Urine Nitrite Negative Negative Urine Bilirubin Negative Negative Urine Urobilinogen Normal Negative mg/dL Urine Leukocyte Esterase 3+ Negative /uL Urine RBC 2 0 - 4 /hpf Urine WBC 10 0 - 5 /hpf Urine Squamous Epithelial Cells Few <5 /hpf Urine Bacteria None seen None Seen /hpf Urine Hyaline Casts Few 0 - 2 /lpf Urine Glucose Normal Normal mg/dL Erythrocyte Sedimentation Rate 75 H 0-20 mm/hr Prothrombin Time 17.4 H 9.3-11.8 sec Prothrombin Time INR 1.71 H 0.9-1.15 Activated Partial Thromboplast Time 38.2 H 24.5-34.5 SEC Hemoglobin A1c 5.1 <5.7 % A1C Magnesium Level 2.1 1.6-2.6 mg/dL Iron Level 25 L 50-170 ug/dL Total Iron Binding Capacity 323 250-425 ug/dL Percent Iron Saturation 7.7 L 15-50 % Total Bilirubin 1.4 H 0.2-1.0 mg/dL Aspartate Amino Transferase (AST) 412 H 13-40 U/L Alanine Aminotransferase (ALT) 55 H 7-40 U/L Alkaline Phosphatase 768 H 46-116 U/L Creatine Kinase 409 H 34-145 U/L C-Reactive Protein High Sensitivity 10.15 H <1.0 mg/dL B-Type Natriuretic Peptide 128.60 0-100 pg/mL Total Protein 6.7 5.7-8.2 g/dL Albumin 3.3 3.2-4.8 g/dL Tumor Marker Alpha Fetoprotein 2.0 0.0-9.2 ng/mL Carcinoembryonic Antigen 326.14 <=5.0 ng/mL Vitamin B12 Level 2343 H 211-911 pg/mL Vitamin D 25-Hydroxy 44.3 30.0-100 ng/mL Folic Acid 6.56 >5.38 ng/mL Thyroid Stimulating Hormone (TSH) 2.84 0.55-4.78 uIU/mL Plasma/Serum Blood Alcohol < 3.0 <10 mg/dL Hepatitis A IgM Antibody Negative Hepatitis A Antibody Total Positive H Negative Hepatitis B Surface Antigen Negative Negative Hepatitis B Surface Antibody Negative Negative Hepatitis B Core Total Antibody Negative Negative Hepatitis B Core IgM Antibody Negative Hepatitis C Antibody Negative Negative Urine Opiates Screen Neg NEGATIVE Urine Fentanyl Screen Neg NEGATIVE Urine Barbiturates Screen Neg NEGATIVE Urine Phencyclidine Screen Neg NEGATIVE Urine Amphetamines Screen Neg NEGATIVE Urine Benzodiazepines Screen Neg NEGATIVE Urine Cocaine Screen Neg NEGATIVE Urine Cannabinoids Screen Neg NEGATIVE Test 12/17/23 21:09 Range/Units Lactic Acid Level 1.8 0.4-2.0 mmol/L Microbiology Date/Time Source Procedure Growth Status 12/18/23 13:03 Stool Stool Culture - Preliminary Resulted 12/18/23 13:03 Stool Shiga Toxin I & II - Final Resulted 12/18/23 12:29 Nose MRSA Screen - Final Complete 12/18/23 11:03 Voided Urine Urine Culture - Preliminary Resulted 12/17/23 18:57 Blood Blood Culture - Preliminary NO GROWTH AFTER 24 HOURS OF INCUBATION. Resulted Assessment -NSTEMI type 2 -History of CAD status post PTCA with 4 RYAN in January 2018 at [facility] -Chronic HFrEF 35% EF S/P Medtronic ICD , NYHA class II -Sepsis secondary to probable metastatic colon cancer to the liver -Hypotension Plan/Recommendation conservative management Stress test in the outpatient resume GDMT when blood pressure normalizes Please notify cardiology if chest pain arises, there is no further workup indicated at this time, we are signing off. Case discussed with Dr. Keating Critical care, time spent: 48 minutes Plan discussed with: Patient Date of Service: Dec 19, 2023 Billing Provider: FLO KEATING MD Cardiology Common Codes: [id number] INP/OBS CARE (High) MANJU GARCIA RESIDENT Dec 19, 2023 17:23
[2023-12-19] MEDS: TEMAZEPAM 15 MG CAP PO PRN (21:16)
[2023-12-19] MEDS: AMOXICILLIN/CLAVUL 875 MG TAB PO SCH (21:16)
[2023-12-20] VITALS (7 sets, daily range): BP systolic 80–96; BP diastolic 47–64; PULSE 86–94; RESP 15–19; TEMP 97.4–99.2; O2SAT 95–100
[2023-12-20 07:08] LABS: Basophils # (auto) 0.1 10 ^3/uL (0-0.2); Eosinophils # (auto) 0.1 10 ^3/uL (0-0.8); Monocytes # (auto) 0.8 10 ^3/uL (0-1.3); White Blood Cell 7.9 10^3/uL (4.4-10.8)
[2023-12-20 07:12] LABS: Basophils % (auto) 1.2 % (0.0-2.0); Eosinophils % (auto) 0.9 % (0.0-7.0); Hematocrit 24.8 % (36.0-46.0); Hemoglobin 7.9 g/dL (12.2-16.2); Lymphocytes # (auto) 0.9 10 ^3/uL (0.4-5.4); Lymphocytes % (auto) 11.9 % (10.0-50.0); Mean Corpuscular Hemoglobin 24.7 pg (28.0-32.0); Mean Corpuscular Hgb Conc. 31.9 g/dL (32.0-36.0); Mean Corpuscular Volume 77.3 fL (80.0-100.0); Monocytes % (auto) 9.8 % (0.0-12.0); Neutrophils % (auto) 76.2 % (37.0-80.0); Nucleated Red Blood Cells % 0.1 %; Platelet Count (auto) 337 10^3/uL (140-450); Red Blood Cells 3.21 10^6/uL (4.0-5.20); Red Cell Distribution Width 19.2 % (11.8-14.3)
[2023-12-20 07:25] LABS: Chloride 109 mmol/L (98-107); Potassium 3.8 mmol/L (3.5-5.1); Sodium 138 mmol/L (136-145)
[2023-12-20 07:26] LABS: Anion Gap 10 (5-15); Calcium 8.1 mg/dL (8.7-10.4); Carbon Dioxide 19 mmol/L (20-31)
[2023-12-20 07:31] LABS: BUN/Creatinine Ratio 7.6 (10.0-20.0); Blood Urea Nitrogen 5 mg/dL (9-23); Glucose 64 mg/dL (74-106)
[2023-12-20] MEDS ORDERED: DEXTROSE (50%) 50ML SYRG IV PRN (10:00)
[2023-12-20] MEDS: SODIUM FERR GLUC 62.5MG/5ML 110 ML IV SCH (11:33)
[2023-12-20] MEDS: InsuLIN REG 1unit/0.01ml Soln (100units/ml) SC SCH (11:41)
[2023-12-20] MEDS: ACCU-CHEK COMFORT CURVE STRIP VI SCH (11:41)
--- NOTE | 2023-12-20 14:41 | DVHPNRES ---
Progress Note Date Seen: Dec 20, 2023 Resident Creating Document: ODELL CINTRON RESIDENT Medical Necessity Reason Pt with a Central, PICC or Fol: No Subjective Review of Systems pt seen and examined at bedside. she is currently mentioning of mild upper abdominal pain, but no other symptoms. ROS Constitutional: No: Fever, Chills, Sweats, Weakness, Malaise, Other Eyes: No: Pain, Vision change, Conjunctivae inflammation, Eyelid inflammation, Other, Redness ENT: No: Ear pain, Ear discharge, Nose pain, Nose discharge, Nose congestion, Mouth pain, Mouth swelling, Throat pain, Throat swelling, Other Respiratory: No: Cough, Dry, Shortness of breath, SOB with excertion, Wheezing, Hemoptysis, Pleuritic Pain, Sputum, Wheezing, Other Cardiovascular: No: Chest Pain, Palpitations, Orthopnea, Paroxysmal Noc. Dyspnea, Edema, Lt Headedness, Other Gastrointestinal: No: Nausea, Vomiting, Abdominal Pain, Diarrhea, Constipation, Melena, Hematochezia, Other Musculoskeletal: No: other, neck pain, shoulder pain, arm pain, back pain, hand pain, leg pain, foot pain Neurological:; No: Weakness, Numbness, Incoordination, Change in speech, Confusion, Seizures Changes from previous H/P or p: No Changes Review of Systems: HEENT:Normal, CVS:Normal, RESPIRATORY:Normal Objective vital signs Vital Sign Date Time Temp Pulse Resp B/P (MAP) Pulse Ox O2 Delivery O2 Flow Rate FiO2 12/20/23 09:00 98.1 94 17 89/50 (63) 96 98.1 12/20/23 08:15 Room Air* 0 21 Total Intake and Output 12/19/23 12/19/23 12/20/23 14:59 22:59 06:59 Intake Total 750 ml 0 ml 800 ml Balance 750 ml 0 ml 800 ml medications Current Medications Medications Dose Ordered Sig/Saige Route Start Time Stop Time Status Last Admin Dose Admin Sodium Chloride 10 ml Q8HR IV 12/17/23 22:00 12/20/23 14:12 10 ML Acetaminophen 325 mg Q4HP PRN PO 12/17/23 22:00 Acetaminophen/ Hydrocodone Bitart 1 tab Q4HP PRN PO 12/17/23 22:00 12/18/23 22:11 1 TAB Ondansetron HCl 4 mg Q4HP PRN IV 12/17/23 22:00 Pantoprazole Sodium 40 mg DAILY IV 12/19/23 10:00 12/20/23 10:20 40 MG Amoxicillin/ Clavulanate Potassium 875 mg Q12HR PO 12/19/23 22:00 12/21/23 23:59 12/20/23 10:20 875 MG Temazepam 15 mg HSPRN PRN PO 12/19/23 20:30 12/19/23 21:16 15 MG Diagnostic Test (Pha) 1 strip IQ4HR 12/20/23 12:00 12/20/23 11:41 1 STRIP Insulin Human Regular IQ4HR SC 12/20/23 12:00 Dextrose 50 ml UD PRN IV 12/20/23 10:00 Ferrous Sulfate 325 mg BIDWM PO 12/20/23 18:00 Examination Examination General Appearance: Alert, Oriented X3, Cooperative, No acute distress HEENT: EOMI Respiratory: Clear to auscultation, Normal air movement Cardiovascular: Regular rate, Normal S1, Normal S2 Abdominal: Normal bowel sounds Extremities: No cyanosis, No edema, Normal pulses, No tenderness/swelling Skin: No rashes, No breakdown Neuro: Normal speech and tone Examination: GENERAL:Normal, HEENT:Normal, NECK:Normal, LUNGS:Normal laboratory and microbiology Laboratory Tests 12/20/23 06:32 Test 12/20/23 06:32 Range/Units Serum Glucose 64 L 74-106 mg/dL Microbiology Date/Time Source Procedure Growth Status 12/18/23 13:03 Stool Stool Culture - Preliminary Resulted 12/18/23 13:03 Stool Shiga Toxin I & II - Final Resulted 12/18/23 12:29 Nose MRSA Screen - Final Complete 12/18/23 11:03 Voided Urine Urine Culture - Final Complete 12/17/23 18:57 Blood Blood Culture - Preliminary NO GROWTH AFTER 48 HOURS OF INCUBATION. Resulted Labs and/or images reviewed: Labs reviewed by me, Image(s) reviewed by me Problem List/Assessment/Plan Problem List/Assessment/Plan Assessment/plan # likely metastatic colon cancer with likely liver Mets status post sigmoidoscopy -seen on CT with IV contrast -status post sigmoidoscopy showed circumferential polypoid ulcerated inflamed and partially obstructing, distal descending colon mass close to the proximal sigmoid at about 45-50 cm above the anal verge. 1+ internal hemorrhoids -biopsies taken during sigmoidoscopy, awaiting results for pathology -oncology consulted -surgery consulted for need for partial colectomy -elevated CEA and CA 19-9 #?Sirs/ Sepsis likely due ?Intra-abdominal infection/ colon mass likely colon cancer -IV Zosyn switched to oral Augmentin -lactic acid level monitoring # GI bleed, likely lower GI bleed due to colon mass likely colon cancer -monitor H&H -transfuse to maintain hemoglobin greater than 8 considering history of coronary artery disease -status post sigmoidoscopy -GI consulted -Continue pantoprazole # acute on chronic microcytic anemia likely due to acute blood loss and chronic iron-deficiency anemia -monitor H&H -transfuse to maintain hemoglobin greater than 8 considering history of coronary artery disease -oral iron tablets # NSTEMI type 2 likely due to CHF, ? Sirs/sepsis -monitor troponins level # transaminitis secondary to liver Mets -monitor CMP # multiple liver Mets, likely primary source is colon cancer -seen on CT with IV contrast, hepatic protocol -scheduled for biopsy on Friday -GI consulted Monitor alpha-fetoprotein # 1+ internal hemorrhoids -seen on sigmoidoscopy #coronary artery disease status post PTCA with four drug-eluting stent in January 2018 -aspirin on hold because of GI bleeding # chronic heart failure with reduced ejection fraction status post ICD placement -echo reveals Moderately dilated left ventricular. Severely reduced left ventricular systolic function with estimated ejection fraction of 35%. There is anterior anteroapical wall akinesia. Moderately reduced left ventricular systolic function -cardiology on board -hold GDMT as patient is having low normal BP # ICD -Device Interrogation pending #Hypertension -currently low normal blood pressure #Dyslipidemia -we will resume statins #History of insomnia -continue home meds #DVT prophylaxis -currently no Lovenox as patient has GI bleed, continue with SCDs Case discussion with Dr. West Goals of care discussed with the patient for greater than 21 minutes, full code Plan discussed with: Patient, Other My Orders My Orders Orders - ODELL CINTRON RESIDENT Procedure Category Date Status Time Glucose Blood PHA 12/20/23 In Process (Accu-Chek Comfort 12:00 Insulin R (Human) PHA 12/20/23 In Process (Insulin R) 12:00 Dextrose 50% Syringe PHA 12/20/23 In Process 10:00 Hemoglobin & LAB 12/20/23 Logged Hematocrit 15:00 Full Liq Diet DIET 12/20/23 Transmitted Lunch Ferrous Sulfate Tablet PHA 12/20/23 In Process 18:00 Date of Service: Dec 20, 2023 Billing Provider: DEJAN WEST DO Common Visit Codes: [id number] INP/OBS CARE(HIGH) ODELL CINTRON RESIDENT Dec 20, 2023 14:41 DEJAN WEST DO Dec 25, 2023 06:56
[2023-12-20 14:49] LABS: Hematocrit 31.4 % (36.0-46.0); Hemoglobin 9.4 g/dL (12.2-16.2)
[2023-12-20] MEDS: FERROUS SULFATE 325mg EC TAB PO ONE (14:56)
--- NOTE | 2023-12-20 15:46 | DVHINCON2 ---
Date of service: Dec 20, 2023 Referring Physician Robert Gonzales DO Reason for Consultation Concern for metastatic colon cancer History of Present Illness Nirali Matta is a 63-year-old female with past medical history significant for coronary artery disease, heart failure with reduced ejection fraction, cardiac arrest status post tissue fibrillator placement in 2018, recurrent UTIs, pyelonephritis who presented to the [facility] ER with chief complaint of abdominal pain. Patient notes that she 1st developed symptoms in September, after trip to [facility] in August. The symptoms were initially diagnosed as UTI. from September onwards, patient had at least 3 visits to urgent care, where she was diagnosed with UTIs, and treated with different antibiotics. However, after treatment of the UTI, patient developed progressive lower abdominal pain and pressure, along with hematochezia, which prompted evaluation in the ER. The kaila ent notes that she may have lost approximately 5 pounds over the last 3 months. Labs on admission: WBC 12.1, hemoglobin 10.5, MCV 78.4, platelets [id number]. Total bilirubin 1.5, AST 479, ALT 62, alk-phos 832. Tumor markers CEA 326.14, AFP 2.0 , CA 19-9 1546. Liver ultrasound on 12/17/2023: Hepatomegaly with increased hepatic echogenicity which may be from hepatic steatosis / hepatic disease. 8.1 x 8.3 x 8 cm left hepatic lobe soft tissue mass. Hepatic protocol CT/ is recommended for further evaluation. CT abdomen/ pelvis on 12/18/2023 showed approximately 6 cm segment of the sigmoid colon demonstrating irregular wall thickening suspicious for primary colon malignancy. Correlation with colonoscopy is recommended. Enlarged liver with numerous poorly enhancing hepatic lesions with the larger lesion measuring greater than 12 cm. These are suspicious for metastatic lesions. The patient underwent a flexible sigmoidoscopy with biopsy on 12/19/[address] Tom. This revealed a distal descending colon mass close to the proximal sigmoid above 45-50 cm above the anal verge. This was circumferential polypoid ulcerated inflamed and partially obstructing. Unable to advance scope through. Multiple biopsies taken. 1+ internal hemorrhoids. Oncology consult has been requested in regards to further evaluation of metastatic malignancy. Past Medical History -History of CAD status post PTCA with 4 RYAN in January 2018 at [facility] -Chronic HFrEF 35% EF S/P Med[employer] ICD , NYHA class II -Hemorrhoids -Recurrent UTIs -History of pyelonephritis Past Surgical History Angioplasty Coronary stent Tonsillectomy Pacemaker Hysterectomy Cataracts Family History: Cardiovascular disease G8 MOTHER Cerebrovascular accident (CVA) G8 MOTHER Diabetes mellitus G8 MOTHER Thyroid disease G8 MOTHER Allergies: Coded Allergies: Lisinopril (Verified Allergy, Unknown, 12/29/17) Morphine (Verified Allergy, Unknown, 09/21/17) Home Meds Reported Medications Empagliflozin (Jardiance) 10 Mg Tab, 10 MG PO DAILY, TAB 12/19/23 Sacubitril-Valsartan (Entresto 24-26 mg) 1 Tab Tab, 1 TAB PO BID, TAB 12/18/23 Temazepam (Restoril) 15 Mg Cp, 1 CAP PO QPM PRN for FOR INSOMNIA, #30 CAP 1 Refill 09/22/17 Metoprolol Succinate (Toprol Xl) 25 Mg Tab, 25 MG PO DAILY, TAB 09/21/17 Atorvastatin Calcium (Lipitor) 80 Mg Tab, 80 MG PO HS, TAB 09/21/17 Aspirin (Aspir-Low) 81 Mg Tab, 81 MG PO DAILY for 30 Days, MG 09/21/17 Discontinued Reported Medications Ticagrelor Base (BRILINTA) 90 Mg Tab, 90 MG PO BID, TAB 09/21/17 Current Medications Current Medications Medications (Trade) Dose Ordered Sig/Saige Route PRN Reason Start Time Stop Time Status Last Admin Piperacillin Sod/ Tazobactam Sod 100 ml @ 25 mls/hr Q8H IV 12/19/23 17:00 12/19/23 17:41 DC Amoxicillin/ Clavulanate Potassium (Augmentin Tablet) 875 mg Q12HR PO 12/19/23 22:00 12/21/23 23:59 12/20/23 10:20 Temazepam (Restoril) 15 mg HSPRN PRN PO FOR INSOMNIA 12/19/23 20:30 12/19/23 21:16 Diagnostic Test (Pha) (Accu-Chek Comfort Curve T) 1 strip IQ4HR 12/20/23 12:00 12/20/23 11:41 Insulin Human Regular (InsuLIN R) IQ4HR SC 12/20/23 12:00 Dextrose 50 ml UD PRN IV Blood Sugar LESS THAN 60 12/20/23 10:00 Ferric Sodium Gluconate Complex 110 ml @ 110 mls/hr DAILY@1200 IV 12/20/23 12:00 12/20/23 13:24 DC 12/20/23 11:33 Ferrous Sulfate 325 mg BIDWM PO 12/20/23 18:00 Review of Systems Negative, otherwise as stated above. Vital Signs Vital Signs Date Time Temp Pulse Resp B/P (MAP) Pulse Ox O2 Delivery O2 Flow Rate FiO2 12/20/23 09:00 98.1 94 17 89/50 (63) 96 98.1 12/20/23 08:15 Room Air* 0 21 Physical Exam General: Well-built, afebrile, palor, mucosae are moist Cardiovascular: Regular S1 and S2. No murmurs, gallops or rubs. No JVD elevation. No pedal edema Respiratory: Normal B/L air entry on room air. Clear lung sounds on auscultation Abdomen: Soft, nontender, mildly tender, normoactive bowel sounds, no rebound tenderness, no organomegaly, no masses Genitourinary: Deferred MSK/skin: Mobilizes 4 limbs. Skin is dry and warm. No rash or bite dong seen in lower or upper extremities. Neurological: No motor, no sensitive deficits, normal speech. Pupils are isocoric and reactive. Psych/Mental Status: A/Ox4, mood is appropriate. Labs/Diagnostic Data Labs Test 12/20/23 14:40 12/20/23 06:32 12/19/23 16:03 12/19/23 10:40 Range/Units Hemoglobin 9.4 #L 12.2-16.2 g/dL Hematocrit 31.4 #L 36.0-46.0 % White Blood Count 7.9 4.4-10.8 10^3/uL Red Blood Count 3.21 L 4.0-5.20 10^6/uL Mean Corpuscular Volume 77.3 L 80.0-100.0 fL Mean Corpuscular Hemoglobin 24.7 L 28.0-32.0 pg Mean Corpuscular Hemoglobin Concent 31.9 L 32.0-36.0 g/dL Red Cell Distribution Width 19.2 H 11.8-14.3 % Platelet Count 337 140-450 10^3/uL Mean Platelet Volume 7.7 6.9-10.8 fL Neutrophils (%) (Auto) 76.2 37.0-80.0 % Lymphocytes (%) (Auto) 11.9 10.0-50.0 % Monocytes (%) (Auto) 9.8 0.0-12.0 % Eosinophils (%) (Auto) 0.9 0.0-7.0 % Basophils (%) (Auto) 1.2 0.0-2.0 % Neutrophils # (Auto) 6.0 1.6-8.6 10 ^3/uL Lymphocytes # (Auto) 0.9 0.4-5.4 10 ^3/uL Monocytes # (Auto) 0.8 0-1.3 10 ^3/uL Eosinophils # (Auto) 0.1 0-0.8 10 ^3/uL Basophils # (Auto) 0.1 0-0.2 10 ^3/uL Nucleated Red Blood Cells 0.1 % Sodium Level 138 136-145 mmol/L Potassium Level 3.8 3.5-5.1 mmol/L Chloride Level 109 H 98-107 mmol/L Carbon Dioxide Level 19 L 20-31 mmol/L Anion Gap 10 5-15 Blood Urea Nitrogen 5 L 9-23 mg/dL Creatinine 0.66 0.550-1.02 mg/dL Glomerular Filtration Rate Calc 100 >90 mL/min BUN/Creatinine Ratio 7.6 L 10.0-20.0 Serum Glucose 64 L 74-106 mg/dL Calcium Level 8.1 L 8.7-10.4 mg/dL Troponin I High Sensitivity 42 *H </=34 ng/L CA 19-9 Antigen 1546 H 0-35 U/mL Test 12/18/23 13:03 12/18/23 12:28 12/18/23 11:03 12/18/23 08:21 Range/Units Stool Occult Blood Positive Negative Stool Occult Blood Sample #3 Negative SARS-CoV-2 Antigen (Rapid) Negative NEGATIVE Urine Color Light-yellow Yellow Urine Clarity Turbid H Clear Urine pH 6.0 5.0-9.0 Urine Specific [place] 1.011 1.001-1.035 Urine Protein Trace H Negative Urine Ketones Negative Negative Urine Blood 1+ H Negative /uL Urine Nitrite Negative Negative Urine Bilirubin Negative Negative Urine Urobilinogen Normal Negative mg/dL Urine Leukocyte Esterase 3+ Negative /uL Urine RBC 2 0 - 4 /hpf Urine WBC 10 0 - 5 /hpf Urine Squamous Epithelial Cells Few <5 /hpf Urine Bacteria None seen None Seen /hpf Urine Hyaline Casts Few 0 - 2 /lpf Urine Glucose Normal Normal mg/dL Erythrocyte Sedimentation Rate 75 H 0-20 mm/hr Prothrombin Time 17.4 H 9.3-11.8 sec Prothrombin Time INR 1.71 H 0.9-1.15 Activated Partial Thromboplast Time 38.2 H 24.5-34.5 SEC Hemoglobin A1c 5.1 <5.7 % A1C Magnesium Level 2.1 1.6-2.6 mg/dL Iron Level 25 L 50-170 ug/dL Total Iron Binding Capacity 323 250-425 ug/dL Percent Iron Saturation 7.7 L 15-50 % Total Bilirubin 1.4 H 0.2-1.0 mg/dL Aspartate Amino Transferase (AST) 412 H 13-40 U/L Alanine Aminotransferase (ALT) 55 H 7-40 U/L Alkaline Phosphatase 768 H 46-116 U/L Creatine Kinase 409 H 34-145 U/L C-Reactive Protein High Sensitivity 10.15 H <1.0 mg/dL B-Type Natriuretic Peptide 128.60 0-100 pg/mL Total Protein 6.7 5.7-8.2 g/dL Albumin 3.3 3.2-4.8 g/dL Tumor Marker Alpha Fetoprotein 2.0 0.0-9.2 ng/mL Carcinoembryonic Antigen 326.14 <=5.0 ng/mL Vitamin B12 Level 2343 H 211-911 pg/mL Vitamin D 25-Hydroxy 44.3 30.0-100 ng/mL Folic Acid 6.56 >5.38 ng/mL Thyroid Stimulating Hormone (TSH) 2.84 0.55-4.78 uIU/mL Plasma/Serum Blood Alcohol < 3.0 <10 mg/dL Hepatitis A IgM Antibody Negative Hepatitis A Antibody Total Positive H Negative Hepatitis B Surface Antigen Negative Negative Hepatitis B Surface Antibody Negative Negative Hepatitis B Core Total Antibody Negative Negative Hepatitis B Core IgM Antibody Negative Hepatitis C Antibody Negative Negative Test 12/18/23 08:02 12/17/23 21:09 Range/Units Urine Opiates Screen Neg NEGATIVE Urine Fentanyl Screen Neg NEGATIVE Urine Barbiturates Screen Neg NEGATIVE Urine Phencyclidine Screen Neg NEGATIVE Urine Amphetamines Screen Neg NEGATIVE Urine Benzodiazepines Screen Neg NEGATIVE Urine Cocaine Screen Neg NEGATIVE Urine Cannabinoids Screen Neg NEGATIVE Lactic Acid Level 1.8 0.4-2.0 mmol/L Microbiology Date/Time Source Procedure Growth Status 12/18/23 13:03 Stool Stool Culture - Preliminary Resulted 12/18/23 13:03 Stool Shiga Toxin I & II - Final Resulted 12/18/23 12:29 Nose MRSA Screen - Final Complete 12/18/23 11:03 Voided Urine Urine Culture - Final Complete 12/17/23 18:57 Blood Blood Culture - Preliminary NO GROWTH AFTER 48 HOURS OF INCUBATION. Resulted Assessment 1. Likely colon cancer with suspected liver metastasis: Elevation in tumor markers and the presence of sigmoid mass in addition to liver lesions are suggestive of metastatic disease. --Flexible sigmoidoscopy with biopsy on 12/19/[address] Tom. This revealed a distal descending colon mass close to the proximal sigmoid above 45- 50 cm above the anal verge. This was circumferential polypoid ulcerated inflamed and partially obstructing. Plan/Recommendation - Proceed with liver biopsy on Friday to confirm diagnosis. - Await pathology results from biopsy of sigmoid mass. - Conduct CT chest for staging. - Surgery on board in regards to consideration of partial colectomy +/- diverting colostomy given concern for partial obstruction. - Patient will require systemic therapy if confirmed to have metastatic disease. This will be further discussed as outpatient. - Follow up closely with oncology for comprehensive care management. Will ensure the patient has follow-up appointment with our clinic in the near future. Plan discussed with: Patient, Spouse SENA MARR MD Dec 20, 2023 15:46
--- NOTE | 2023-12-20 16:29 | DVHINCON2 ---
Date of service: Dec 20, 2023 Family History: Cardiovascular disease G8 MOTHER Cerebrovascular accident (CVA) G8 MOTHER Diabetes mellitus G8 MOTHER Thyroid disease G8 MOTHER Allergies: Coded Allergies: Lisinopril (Verified Allergy, Unknown, 12/29/17) Morphine (Verified Allergy, Unknown, 09/21/17) Home Meds Reported Medications Empagliflozin (Jardiance) 10 Mg Tab, 10 MG PO DAILY, TAB 12/19/23 Sacubitril-Valsartan (Entresto 24-26 mg) 1 Tab Tab, 1 TAB PO BID, TAB 12/18/23 Temazepam (Restoril) 15 Mg Cp, 1 CAP PO QPM PRN for FOR INSOMNIA, #30 CAP 1 Re fill 09/22/17 Metoprolol Succinate (Toprol Xl) 25 Mg Tab, 25 MG PO DAILY, TAB 09/21/17 Atorvastatin Calcium (Lipitor) 80 Mg Tab, 80 MG PO HS, TAB 09/21/17 Aspirin (Aspir-Low) 81 Mg Tab, 81 MG PO DAILY for 30 Days, MG 09/21/17 Discontinued Reported Medications Ticagrelor Base (BRILINTA) 90 Mg Tab, 90 MG PO BID, TAB 09/21/17 Current Medications Current Medications Medications (Trade) Dose Ordered Sig/Saige Route PRN Reason Start Time Stop Time Status Last Admin Piperacillin Sod/ Tazobactam Sod 100 ml @ 25 mls/hr Q8H IV 12/19/23 17:00 12/19/23 17:41 DC Amoxicillin/ Clavulanate Potassium (Augmentin Tablet) 875 mg Q12HR PO 12/19/23 22:00 12/21/23 23:59 12/20/23 10:20 Temazepam (Restoril) 15 mg HSPRN PRN PO FOR INSOMNIA 12/19/23 20:30 12/19/23 21:16 Diagnostic Test (Pha) (Accu-Chek Comfort Curve T) 1 strip IQ4HR 12/20/23 12:00 12/20/23 11:41 Insulin Human Regular (InsuLIN R) IQ4HR SC 12/20/23 12:00 Dextrose 50 ml UD PRN IV Blood Sugar LESS THAN 60 12/20/23 10:00 Ferric Sodium Gluconate Complex 110 ml @ 110 mls/hr DAILY@1200 IV 12/20/23 12:00 12/20/23 13:24 DC 12/20/23 11:33 Ferrous Sulfate 325 mg BIDWM PO 12/20/23 18:00 Vital Signs Vital Signs Date Time Temp Pulse Resp B/P (MAP) Pulse Ox O2 Delivery O2 Flow Rate FiO2 12/20/23 09:00 98.1 94 17 89/50 (63) 96 98.1 12/20/23 08:15 Room Air* 0 21 Labs/Diagnostic Data Labs Test 12/20/23 14:40 12/20/23 06:32 12/19/23 16:03 12/19/23 10:40 Range/Units Hemoglobin 9.4 #L 12.2-16.2 g/dL Hematocrit 31.4 #L 36.0-46.0 % White Blood Count 7.9 4.4-10.8 10^3/uL Red Blood Count 3.21 L 4.0-5.20 10^6/uL Mean Corpuscular Volume 77.3 L 80.0-100.0 fL Mean Corpuscular Hemoglobin 24.7 L 28.0-32.0 pg Mean Corpuscular Hemoglobin Concent 31.9 L 32.0-36.0 g/dL Red Cell Distribution Width 19.2 H 11.8-14.3 % Platelet Count 337 140-450 10^3/uL Mean Platelet Volume 7.7 6.9-10.8 fL Neutrophils (%) (Auto) 76.2 37.0-80.0 % Lymphocytes (%) (Auto) 11.9 10.0-50.0 % Monocytes (%) (Auto) 9.8 0.0-12.0 % Eosinophils (%) (Auto) 0.9 0.0-7.0 % Basophils (%) (Auto) 1.2 0.0-2.0 % Neutrophils # (Auto) 6.0 1.6-8.6 10 ^3/uL Lymphocytes # (Auto) 0.9 0.4-5.4 10 ^3/uL Monocytes # (Auto) 0.8 0-1.3 10 ^3/uL Eosinophils # (Auto) 0.1 0-0.8 10 ^3/uL Basophils # (Auto) 0.1 0-0.2 10 ^3/uL Nucleated Red Blood Cells 0.1 % Sodium Level 138 136-145 mmol/L Potassium Level 3.8 3.5-5.1 mmol/L Chloride Level 109 H 98-107 mmol/L Carbon Dioxide Level 19 L 20-31 mmol/L Anion Gap 10 5-15 Blood Urea Nitrogen 5 L 9-23 mg/dL Creatinine 0.66 0.550-1.02 mg/dL Glomerular Filtration Rate Calc 100 >90 mL/min BUN/Creatinine Ratio 7.6 L 10.0-20.0 Serum Glucose 64 L 74-106 mg/dL Calcium Level 8.1 L 8.7-10.4 mg/dL Troponin I High Sensitivity 42 *H </=34 ng/L CA 19-9 Antigen 1546 H 0-35 U/mL Test 12/18/23 13:03 12/18/23 12:28 12/18/23 11:03 12/18/23 08:21 Range/Units Stool Occult Blood Positive Negative Stool Occult Blood Sample #3 Negative SARS-CoV-2 Antigen (Rapid) Negative NEGATIVE Urine Color Light-yellow Yellow Urine Clarity Turbid H Clear Urine pH 6.0 5.0-9.0 Urine Specific [place] 1.011 1.001-1.035 Urine Protein Trace H Negative Urine Ketones Negative Negative Urine Blood 1+ H Negative /uL Urine Nitrite Negative Negative Urine Bilirubin Negative Negative Urine Urobilinogen Normal Negative mg/dL Urine Leukocyte Esterase 3+ Negative /uL Urine RBC 2 0 - 4 /hpf Urine WBC 10 0 - 5 /hpf Urine Squamous Epithelial Cells Few <5 /hpf Urine Bacteria None seen None Seen /hpf Urine Hyaline Casts Few 0 - 2 /lpf Urine Glucose Normal Normal mg/dL Erythrocyte Sedimentation Rate 75 H 0-20 mm/hr Prothrombin Time 17.4 H 9.3-11.8 sec Prothrombin Time INR 1.71 H 0.9-1.15 Activated Partial Thromboplast Time 38.2 H 24.5-34.5 SEC Hemoglobin A1c 5.1 <5.7 % A1C Magnesium Level 2.1 1.6-2.6 mg/dL Iron Level 25 L 50-170 ug/dL Total Iron Binding Capacity 323 250-425 ug/dL Percent Iron Saturation 7.7 L 15-50 % Total Bilirubin 1.4 H 0.2-1.0 mg/dL Aspartate Amino Transferase (AST) 412 H 13-40 U/L Alanine Aminotransferase (ALT) 55 H 7-40 U/L Alkaline Phosphatase 768 H 46-116 U/L Creatine Kinase 409 H 34-145 U/L C-Reactive Protein High Sensitivity 10.15 H <1.0 mg/dL B-Type Natriuretic Peptide 128.60 0-100 pg/mL Total Protein 6.7 5.7-8.2 g/dL Albumin 3.3 3.2-4.8 g/dL Tumor Marker Alpha Fetoprotein 2.0 0.0-9.2 ng/mL Carcinoembryonic Antigen 326.14 <=5.0 ng/mL Vitamin B12 Level 2343 H 211-911 pg/mL Vitamin D 25-Hydroxy 44.3 30.0-100 ng/mL Folic Acid 6.56 >5.38 ng/mL Thyroid Stimulating Hormone (TSH) 2.84 0.55-4.78 uIU/mL Plasma/Serum Blood Alcohol < 3.0 <10 mg/dL Hepatitis A IgM Antibody Negative Hepatitis A Antibody Total Positive H Negative Hepatitis B Surface Antigen Negative Negative Hepatitis B Surface Antibody Negative Negative Hepatitis B Core Total Antibody Negative Negative Hepatitis B Core IgM Antibody Negative Hepatitis C Antibody Negative Negative Test 12/18/23 08:02 12/17/23 21:09 Range/Units Urine Opiates Screen Neg NEGATIVE Urine Fentanyl Screen Neg NEGATIVE Urine Barbiturates Screen Neg NEGATIVE Urine Phencyclidine Screen Neg NEGATIVE Urine Amphetamines Screen Neg NEGATIVE Urine Benzodiazepines Screen Neg NEGATIVE Urine Cocaine Screen Neg NEGATIVE Urine Cannabinoids Screen Neg NEGATIVE Lactic Acid Level 1.8 0.4-2.0 mmol/L Microbiology Date/Time Source Procedure Growth Status 12/18/23 13:03 Stool Stool Culture - Preliminary Resulted 12/18/23 13:03 Stool Shiga Toxin I & II - Final Resulted 12/18/23 12:29 Nose MRSA Screen - Final Complete 12/18/23 11:03 Voided Urine Urine Culture - Final Complete 12/17/23 18:57 Blood Blood Culture - Preliminary NO GROWTH AFTER 48 HOURS OF INCUBATION. Resulted Assessment [id number] LEFT COLON MASS COLONOSCOPY DONE LIVER LESION R/O METS CONSIDER LEFT COLON RESECTION POSSIBLE COLOSTOMY BASED UPON ONGOING EVAL CARDIOLOGY CLEARANCE Plan discussed with: Patient NEGIN BUCKLEY MD Dec 20, 2023 16:29
--- NOTE | 2023-12-20 16:59 | DVHPN2 ---
Progress Note - Dictate Date Seen: Dec 20, 2023 Medical Necessity Reason Pt with a Central, PICC or Fol: No Subjective Patient seen at bedside Resting comfortably Patient states she always has a sensation that she has to go to the bathroom and feels a sense of incomplete evacuation Sigmoidoscopy findings discussed with patient Sigmoid mass suspected sigmoid cancer CEA level elevated to 346 vital signs Vital Sign Date Time Temp Pulse Resp B/P (MAP) Pulse Ox O2 Delivery O2 Flow Rate FiO2 12/20/23 09:00 98.1 94 17 89/50 (63) 96 98.1 12/20/23 08:15 Room Air* 0 21 Total Intake and Output 12/19/23 12/19/23 12/20/23 14:59 22:59 06:59 Intake Total 750 ml 0 ml 800 ml Balance 750 ml 0 ml 800 ml medications Current Medications Medications Dose Ordered Sig/Saige Route Start Time Stop Time Status Last Admin Dose Admin Sodium Chloride 10 ml Q8HR IV 12/17/23 22:00 12/20/23 14:12 10 ML Acetaminophen 325 mg Q4HP PRN PO 12/17/23 22:00 Acetaminophen/ Hydrocodone Bitart 1 tab Q4HP PRN PO 12/17/23 22:00 12/18/23 22:11 1 TAB Ondansetron HCl 4 mg Q4HP PRN IV 12/17/23 22:00 Pantoprazole Sodium 40 mg DAILY IV 12/19/23 10:00 12/20/23 10:20 40 MG Amoxicillin/ Clavulanate Potassium 875 mg Q12HR PO 12/19/23 22:00 12/21/23 23:59 12/20/23 10:20 875 MG Temazepam 15 mg HSPRN PRN PO 12/19/23 20:30 12/19/23 21:16 15 MG Diagnostic Test (Pha) 1 strip IQ4HR 12/20/23 12:00 12/20/23 11:41 1 STRIP Insulin Human Regular IQ4HR SC 12/20/23 12:00 Dextrose 50 ml UD PRN IV 12/20/23 10:00 Ferrous Sulfate 325 mg BIDWM PO 12/20/23 18:00 objective General: Well-built, afebrile, palor, mucosae are moist Cardiovascular: Regular S1 and S2. No murmurs, gallops or rubs. No JVD elevation. No pedal edema Respiratory: Normal B/L air entry on room air. Clear lung sounds on auscultation Abdomen: Soft, nontender, mildly tender, normoactive bowel sounds, no rebound tenderness, no organomegaly, no masses Genitourinary: Deferred MSK/skin: Mobilizes 4 limbs. Skin is dry and warm. No rash or bite dong seen in lower or upper extremities. Neurological: No motor, no sensitive deficits, normal speech. Pupils are isocoric and reactive. Psych/Mental Status: A/Ox4, mood is appropriate. laboratory and microbiology Laboratory Tests 12/20/23 14:40 12/20/23 06:32 Test 12/20/23 06:32 Range/Units Serum Glucose 64 L 74-106 mg/dL Problems(with codes): (1) Sigmoid stricture (2) Abnormal finding on GI tract imaging (3) Metastases to the liver (4) Liver disease Prognosis Plan Suspected sigmoid cancer partially obstructing Suspected liver metastases Patient is scheduled for an IR guided liver biopsy on Friday Surgical consult has been obtained Patient will likely need to have a partial colectomy because of obstructive symptoms Full liquid diet I will follow up patient with you Plan discussed with: Patient, Spouse ROD BUCKLEY MD Dec 20, 2023 16:59
[2023-12-20] MEDS: FERROUS SULFATE 325mg EC TAB PO SCH (17:58)
--- NOTE | 2023-12-20 19:16 | DVHINCON2 ---
DATE OF CONSULTATION: 12/20/2023 HISTORY OF PRESENT ILLNESS: This patient is 63 years old, coming in with abdominal pain, some constipation. No nausea, vomiting. No hematemesis, melena. No bleeding per rectum. PAST MEDICAL HISTORY: CAD, status post PTCA and she has chronic heart condition with ejection fraction 35%. PAST SURGICAL HISTORY: Angioplasty, coronary stents, tonsillectomy, pacemaker, hysterectomy, and cataract. PHYSICAL EXAMINATION: VITAL SIGNS: Afebrile, stable signs. HEENT: With no evidence of pallor, cyanosis, or jaundice. NECK: Supple, nontender with no thyromegaly, lymphadenopathy. CHEST AND LUNGS: Clear. HEART: Within normal limits. ABDOMEN: Soft, minimally tender in the left lower abdomen. No rebound. CT scan is indicating a liver with enlarged enhancing hepatic lesions suspicious for metastatic disease and she also has a possible colonic malignancy in the sigmoid colon, for which a colonoscopy has been done and the pathology is pending. PLAN: To consider left colon resection following pathology and she is cleared by Cardiology. Benefits and risks have been discussed and a consent obtained and the surgery can be planned with ongoing evaluation. MD KOLE Pinto TID: [id number] RECEIPT: [id number] cc:
[2023-12-21] VITALS (7 sets, daily range): BP systolic 84–96; BP diastolic 50–55; PULSE 76–96; RESP 17–19; TEMP 97.9–98.7; O2SAT 95–100
[2023-12-21 07:44] LABS: Basophils # (auto) 0.1 10 ^3/uL (0-0.2); Lymphocytes # (auto) 1.1 10 ^3/uL (0.4-5.4); Monocytes # (auto) 0.8 10 ^3/uL (0-1.3); Red Cell Distribution Width 19.3 % (11.8-14.3); White Blood Cell 8.5 10^3/uL (4.4-10.8)
[2023-12-21 07:47] LABS: Basophils % (auto) 0.6 % (0.0-2.0); Eosinophils # (auto) 0 10 ^3/uL (0-0.8); Eosinophils % (auto) 0.5 % (0.0-7.0); Hematocrit 26.2 % (36.0-46.0); Hemoglobin 8.5 g/dL (12.2-16.2); Lymphocytes % (auto) 12.6 % (10.0-50.0); Mean Corpuscular Hemoglobin 24.5 pg (28.0-32.0); Mean Corpuscular Hgb Conc. 32.5 g/dL (32.0-36.0); Mean Corpuscular Volume 75.4 fL (80.0-100.0); Monocytes % (auto) 9.6 % (0.0-12.0); Neutrophils # (auto) 6.5 10 ^3/uL (1.6-8.6); Neutrophils % (auto) 76.7 % (37.0-80.0); Platelet Count (auto) 389 10^3/uL (140-450); Red Blood Cells 3.47 10^6/uL (4.0-5.20)
[2023-12-21 08:08] LABS: Alanine Aminotransferase 54 U/L (7-40); Albumin 3.1 g/dL (3.2-4.8); Alkaline Phosphatase 756 U/L (46-116); Anion Gap 9 (5-15); Aspartate Aminotransferase 389 U/L (13-40); Calcium 8.5 mg/dL (8.7-10.4); Carbon Dioxide 19 mmol/L (20-31); Chloride 109 mmol/L (98-107); Glucose 77 mg/dL (74-106); Magnesium 2.2 mg/dL (1.6-2.6); Potassium 3.8 mmol/L (3.5-5.1); Sodium 137 mmol/L (136-145)
[2023-12-21 08:09] LABS: Bilirubin, Total 1.5 mg/dL (0.2-1.0); Total Protein 6.4 g/dL (5.7-8.2)
[2023-12-21 08:10] LABS: BUN/Creatinine Ratio 7.9 (10.0-20.0); Blood Urea Nitrogen < 5 mg/dL (9-23)
--- NOTE | 2023-12-21 08:29 | ECG ---
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
--- NOTE | 2023-12-21 09:05 | ECG ---
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
--- NOTE | 2023-12-21 13:29 | DVHPN2 ---
Progress Note Date Seen: Dec 21, 2023 Medical Necessity Reason Pt with a Central, PICC or Fol: No Objective vital signs Vital Sign Date Time Temp Pulse Resp B/P (MAP) Pulse Ox O2 Delivery O2 Flow Rate FiO2 12/21/23 08:30 97.9 90 17 89/55 (66) 100 97.9 12/21/23 08:15 Room Air* 0 21 Total Intake and Output 12/20/23 12/20/23 12/21/23 15:00 23:00 07:00 Intake Total 1400 ml 414 ml Balance 1400 ml 414 ml medications Current Medications Medications Dose Ordered Sig/Saige Route Start Time Stop Time Status Last Admin Dose Admin Sodium Chloride 10 ml Q8HR IV 12/17/23 22:00 12/21/23 05:51 10 ML Acetaminophen 325 mg Q4HP PRN PO 12/17/23 22:00 Acetaminophen/ Hydrocodone Bitart 1 tab Q4HP PRN PO 12/17/23 22:00 12/18/23 22:11 1 TAB Ondansetron HCl 4 mg Q4HP PRN IV 12/17/23 22:00 Pantoprazole Sodium 40 mg DAILY IV 12/19/23 10:00 12/21/23 09:06 40 MG Amoxicillin/ Clavulanate Potassium 875 mg Q12HR PO 12/19/23 22:00 12/21/23 23:59 12/21/23 09:06 875 MG Temazepam 15 mg HSPRN PRN PO 12/19/23 20:30 12/20/23 21:14 15 MG Diagnostic Test (Pha) 1 strip IQ4HR 12/20/23 12:00 12/20/23 20:07 1 STRIP Insulin Human Regular IQ4HR SC 12/20/23 12:00 Dextrose 50 ml UD PRN IV 12/20/23 10:00 Ferrous Sulfate 325 mg BIDWM PO 12/20/23 18:00 12/21/23 09:06 325 MG Midodrine 5 mg TID PO 12/21/23 14:00 laboratory and microbiology Laboratory Tests 12/21/23 07:10 Test 12/21/23 07:10 Range/Units Serum Glucose 77 74-106 mg/dL Microbiology Date/Time Source Procedure Growth Status 12/18/23 13:03 Stool Stool Culture - Final Complete 12/18/23 13:03 Stool Shiga Toxin I & II - Final Complete 12/18/23 12:29 Nose MRSA Screen - Final Complete 12/18/23 11:03 Voided Urine Urine Culture - Final Complete 12/17/23 18:57 Blood Blood Culture - Preliminary NO GROWTH AFTER 72 HOURS OF INCUBATION. Resulted Problem List/Assessment/Plan Problem List/Assessment/Plan AFEBRILE VSS ABD SOFT PATH PENDING CARDIOLOGY EVAL ONGOING Plan discussed with: Other NEGIN BUCKLEY MD Dec 21, 2023 13:29
[2023-12-21] MEDS: MIDODRINE HCL 10 MG TAB PO SCH (14:27)
--- NOTE | 2023-12-21 15:47 | DVHPN2 ---
Consult Progress Note Subjective Patient reports: No new complaints, Feels better Objective vital signs Vital Sign Date Time Temp Pulse Resp B/P (MAP) Pulse Ox O2 Delivery O2 Flow Rate FiO2 12/21/23 13:30 97.9 96 17 91/55 (67) 98 97.9 12/21/23 08:15 Room Air* 0 21 Total Intake and Output 12/20/23 12/20/23 12/21/23 15:00 23:00 07:00 Intake Total 1400 ml 414 ml Balance 1400 ml 414 ml medications Current Medications Medications Dose Ordered Sig/Saige Route Start Time Stop Time Status Last Admin Dose Admin Sodium Chloride 10 ml Q8HR IV 12/17/23 22:00 12/21/23 14:30 10 ML Acetaminophen 325 mg Q4HP PRN PO 12/17/23 22:00 Acetaminophen/ Hydrocodone Bitart 1 tab Q4HP PRN PO 12/17/23 22:00 12/18/23 22:11 1 TAB Ondansetron HCl 4 mg Q4HP PRN IV 12/17/23 22:00 Pantoprazole Sodium 40 mg DAILY IV 12/19/23 10:00 12/21/23 09:06 40 MG Amoxicillin/ Clavulanate Potassium 875 mg Q12HR PO 12/19/23 22:00 12/21/23 23:59 12/21/23 09:06 875 MG Temazepam 15 mg HSPRN PRN PO 12/19/23 20:30 12/20/23 21:14 15 MG Diagnostic Test (Pha) 1 strip IQ4HR 12/20/23 12:00 12/20/23 20:07 1 STRIP Insulin Human Regular IQ4HR SC 12/20/23 12:00 Dextrose 50 ml UD PRN IV 12/20/23 10:00 Ferrous Sulfate 325 mg BIDWM PO 12/20/23 18:00 12/21/23 09:06 325 MG Midodrine 5 mg TID PO 12/21/23 14:00 12/21/23 14:27 5 MG laboratory and microbiology Laboratory Tests 12/21/23 07:10 Test 12/21/23 07:10 Range/Units Serum Glucose 77 74-106 mg/dL Problem List/Assessment/Plan Problem List/Assessment/Plan Assessment -NSTEMI type 2 -History of CAD status post PTCA with 4 RYAN in January 2018 at [facility] -Chronic HFrEF 35% EF S/P Medtronic ICD , NYHA class II -Sepsis secondary to probable metastatic colon cancer to the liver -Hypotension -sigmoid stricture -metastasis of liver Plan/Recommendation conservative management Stress test in a.m. resume GDMT when blood pressure normalizes Pre-op Cardiac Assessment - Patient is requiring possible left colon resection surgery due to liver metastasis with sigmoid stricture suspected sigmoid cancer. ECG on admission showed sinus rhythm at 90 beats per minute, no acute ST abnormality noted . Denies active cardiac symptoms. Mildly positive troponins likely demand ischemia. Echo recently showed LV EF 35% with anterior, anterior apical wall akinesis. Planned ischemic workup with stress test in a.m. Case Discussed with Dr Keating. Patient needing preop cardiac assessment for possible colon resection. Plan for stress test in a.m., NPO after midnight. This medical document was created using an electronic medical record system with voice recognition software and computerized dictation system. Although this document has been carefully reviewed, there might still be some phonetic and typographical errors. Occasional wrong-word or ``sound-alike substitutions may have occurred due to the inherent limitations of voice recognition software. These areas are purely typographical due to imperfections of the software programs and do not reflect any compromise in the patient's medical care. Please read the chart carefully and recognize, using context, where these substitutions have occurred. Thank you for allowing me to participate in the management of this patient. The treatment plan was discussed with and agreed upon by patient/family including requesting consultants and ordering of imaging/procedures. Plan discussed with: Patient Date of Service: Dec 21, 2023 Billing Provider: FLO KEATING MD Common Visit Codes: [id number] INP/OBS CARE(HIGH) FRAN KRAUS AGACNP Dec 21, 2023 15:47
--- NOTE | 2023-12-21 17:23 | DVHPNRES ---
Progress Note Date Seen: Dec 21, 2023 Resident Creating Document: TIMOTHY CHACON RESIDENT Medical Necessity Reason Pt with a Central, PICC or Fol: No Subjective Review of Systems This is a 63-year-old female patient with PMHx of systolic heart failure status post Medtronic ICD placement -last EF 35% in September2023, CAD status post 4 WISAM in January 2018 , dyslipidemia, recurrent UTIs and pyelonephritis for the past 4 months, hypertension and internal hemorrhoids presented to the ER with a chief complaint of suprapubic abdominal pain and constipation. Patient recently visited [facility] in August this year with her when she went to the [place] bare[place] and had bite dong all over the body, following which she has been getting recurrent UTIs and pyelonephritis starting September, also reports dry cough since the visit. She reports that the abdominal pain started 12/10 and is associated with tenesmus, she only passes small pellet-like stools associated with mucus and a lot of flatus. Also reports history of internal hemorrhoids and that she is experiencing bright red bleed per rectum for the past few days. She denies lifetime history of colonoscopy/endoscopy. Reports nausea, chills on and off but no fever. Denies lifetime history of STI, is monogamous with the . Her did not get any symptoms after the trip. 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 reports no acute distress, went to have a bowel movement but only passed gas/mucus and a small stool. She has laboratory reports with her from the past, shows transaminitis starting in 07/10. 12/18 - patient reported no active complaint, undergoing sigmoidoscopy today. Blood pressure is 89/50, IV NS bolus of 500 cc and 250 cc afterwards administered. Blood pressure did not responded to IV fluids. Scheduled for image guided liver biopsy on 12/21 by IR. 12/20 - patient feels fine. Tolerating clear liquid diet. Developing pitting edema, starting midodrine t.i.d. Changes from previous H/P or p: No Changes Review of Systems: HEENT:Normal, CVS:Normal, RESPIRATORY:Normal Objective vital signs Vital Sign Date Time Temp Pulse Resp B/P (MAP) Pulse Ox O2 Delivery O2 Flow Rate FiO2 12/21/23 16:30 98.1 76 17 96/55 (69) 97 98.1 12/21/23 08:15 Room Air* 0 21 Total Intake and Output 12/20/23 12/20/23 12/21/23 15:00 23:00 07:00 Intake Total 1400 ml 414 ml Balance 1400 ml 414 ml medications Current Medications Medications Dose Ordered Sig/Saige Route Start Time Stop Time Status Last Admin Dose Admin Sodium Chloride 10 ml Q8HR IV 12/17/23 22:00 12/21/23 14:30 10 ML Acetaminophen 325 mg Q4HP PRN PO 12/17/23 22:00 Acetaminophen/ Hydrocodone Bitart 1 tab Q4HP PRN PO 12/17/23 22:00 12/18/23 22:11 1 TAB Ondansetron HCl 4 mg Q4HP PRN IV 12/17/23 22:00 Pantoprazole Sodium 40 mg DAILY IV 12/19/23 10:00 12/21/23 09:06 40 MG Amoxicillin/ Clavulanate Potassium 875 mg Q12HR PO 12/19/23 22:00 12/21/23 23:59 12/21/23 09:06 875 MG Temazepam 15 mg HSPRN PRN PO 12/19/23 20:30 12/20/23 21:14 15 MG Diagnostic Test (Pha) 1 strip IQ4HR 12/20/23 12:00 12/20/23 20:07 1 STRIP Insulin Human Regular IQ4HR SC 12/20/23 12:00 Dextrose 50 ml UD PRN IV 12/20/23 10:00 Ferrous Sulfate 325 mg BIDWM PO 12/20/23 18:00 12/21/23 09:06 325 MG Midodrine 5 mg TID PO 12/21/23 14:00 12/21/23 14:27 5 MG Examination Female patient lying comfortably in bed, in no acute distress, reports no acute distress General: Well-built, afebrile, palor, mucosae are moist Cardiovascular: Regular S1 and S2. No murmurs, gallops or rubs. No JVD elevation. No pedal edema Respiratory: Normal B/L air entry on room air. Clear lung sounds on auscultation Abdomen: Soft, nontender, mildly tender, normoactive bowel sounds, no rebound tenderness, no organomegaly, no masses Genitourinary: Deferred MSK/skin: Mobilizes 4 limbs. Skin is dry and warm. No rash or bite dong seen in lower or upper extremities. Developing mild pitting edema. Neurological: No motor, no sensitive deficits, normal speech. Pupils are isocoric and reactive. Psych/Mental Status: A/Ox4, mood is appropriate. Examination: GENERAL:Normal, HEENT:Normal, NECK:Normal, LUNGS:Normal, CVS:Normal, ABDOMEN:Normal laboratory and microbiology Laboratory Tests 12/21/23 07:10 Test 12/21/23 07:10 Range/Units Serum Glucose 77 74-106 mg/dL Microbiology Date/Time Source Procedure Growth Status 12/18/23 13:03 Stool Stool Culture - Final Complete 12/18/23 13:03 Stool Shiga Toxin I & II - Final Complete 12/18/23 12:29 Nose MRSA Screen - Final Complete 12/18/23 11:03 Voided Urine Urine Culture - Final Complete 12/17/23 18:57 Blood Blood Culture - Preliminary NO GROWTH AFTER 72 HOURS OF INCUBATION. 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 GI consulted - Flexible sigmoidoscopy with biopsy completed, showed circumferential polypoid ulcerated inflamed and partially obstructing, distal descending colon mass close to the proximal sigmoid at about 45-50 cm above the anal verge. 1+ internal hemorrhoids She denies lifetime history of colonoscopy/endoscopy. Patient has recent travel history to [facility] H&H 9.3/28.8, hematocrit 77 - Iron panel remarkable for low iron/low% saturation/normal TIBC DC IV Zosyn q.6 hours, IV NS 60 mL/hour, started amoxicillin 12/19/23 to 12/20 ESR 70, CRP 10, CK 409 Tumor markers CEA 326, AFP 2 Scheduled for image guided liver biopsy on 12/21 by IR. NPO except for meds starting 12/21 00:00. Cardiology/surgeon/oncology on board ?NSTEMI II Echocardiogram showed Moderately dilated left ventricular. Severely reduced left ventricular systolic function with estimated ejection fraction of 35%. There is anterior anteroapical wall akinesia. EKG completed, reviewed - no ST changes. Cardiology consultation -stress test scheduled for 12/21. NPO starting midnight.. Resume GDMT when blood pressure normalizes. Troponin 48, 42 downtrending Transaminitis secondary to metastatic colon cancer versus alcohol use versus parasitic infection CT scan abdomen with contrast shows enlarged liver with numerous poorly enhancing hepatic lesions with the larger lesions measuring greater than 12 cm. Suspicious for metastatic lesions. Liver ultrasound completed 8x8x8 left liver lobe soft tissue mass tried hepatomegaly with increased hepatic echogenicity seen. Blood alcohol pending <3 Fresh red bleeding per rectum secondary to ? hemorrhoid versus colon cancer Patient reports history of hemorrhoids, she has been constipated recently Pantoprazole 40 mg IV daily History of recurrent UTI UA unremarkable Patient reports dark yellow urine Urine bacterial culture History of CAD status post PTCA with 4 wisam in January 2018 at [facility] Chronic systolic heart failure status post Medtronic ICD Patient is developing lower extremity pitting edema-starting midodrine 5 mg PO TID Reports last echo done in September 2023 - LVEF was 35% Device Interrogation pending Holding home medication metoprolol 25 mg, Entresto 24-26 mg b.i.d. BNP 128 Echocardiogram showed Moderately dilated left ventricular. Severely reduced left ventricular systolic function with estimated ejection fraction of 35%. There is anterior anteroapical wall akinesia. Hypertension - controlled Holding antihypertensives given the low blood pressure History of insomnia Patient takes temazepam 0.5 mg p.r.n. Dyslipidemia Atorvastatin on hold given the transaminitis DVT prophylaxis SCDs On hold given the fresh red bleeding per rectum and positive occult blood GERD prophylaxis Pantoprazole PT eval requested Diet NPO starting midnight Plan discussed with patient in which all questions have been answered Goals of care discussed with patient for more than 22 minutes, full code status Case discussed with Dr. West. Scheduled for stress test 12/21. Scheduled for image guided liver biopsy on 12/21 by IR. NPO starting midnight Plan discussed with: Patient Date of Service: Dec 21, 2023 Billing Provider: DEJAN WEST DO Common Visit Codes: [id number] INP/OBS CARE(HIGH) TIMOTHY CHACON RESIDENT Dec 21, 2023 17:23 DEJAN WEST DO Dec 25, 2023 06:55
--- NOTE | 2023-12-21 20:03 | DVHPN2 ---
Progress Note - Dictate Date Seen: Dec 21, 2023 Medical Necessity Reason Pt with a Central, PICC or Fol: No Subjective Patient seen at bedside Resting comfortably Patient had some loose stools after she ate food today Patient appears to be more distended Patient states she always has a sensation that she has to go to the bathroom and feels a sense of incomplete evacuation Sigmoidoscopy findings discussed with patient Sigmoid mass suspected sigmoid cancer CEA level elevated to 346 vital signs Vital Sign Date Time Temp Pulse Resp B/P (MAP) Pulse Ox O2 Delivery O2 Flow Rate FiO2 12/21/23 16:30 98.1 76 17 96/55 (69) 97 98.1 12/21/23 08:15 Room Air* 0 21 Total Intake and Output 12/20/23 12/20/23 12/21/23 15:00 23:00 07:00 Intake Total 1400 ml 414 ml Balance 1400 ml 414 ml medications Current Medications Medications Dose Ordered Sig/Saige Route Start Time Stop Time Status Last Admin Dose Admin Sodium Chloride 10 ml Q8HR IV 12/17/23 22:00 12/21/23 14:30 10 ML Acetaminophen 325 mg Q4HP PRN PO 12/17/23 22:00 Acetaminophen/ Hydrocodone Bitart 1 tab Q4HP PRN PO 12/17/23 22:00 12/18/23 22:11 1 TAB Ondansetron HCl 4 mg Q4HP PRN IV 12/17/23 22:00 Pantoprazole Sodium 40 mg DAILY IV 12/19/23 10:00 12/21/23 09:06 40 MG Amoxicillin/ Clavulanate Potassium 875 mg Q12HR PO 12/19/23 22:00 12/21/23 23:59 12/21/23 09:06 875 MG Temazepam 15 mg HSPRN PRN PO 12/19/23 20:30 12/20/23 21:14 15 MG Diagnostic Test (Pha) 1 strip IQ4HR 12/20/23 12:00 12/20/23 20:07 1 STRIP Insulin Human Regular IQ4HR SC 12/20/23 12:00 Dextrose 50 ml UD PRN IV 12/20/23 10:00 Ferrous Sulfate 325 mg BIDWM PO 12/20/23 18:00 12/21/23 17:41 325 MG Midodrine 5 mg TID PO 12/21/23 14:00 12/21/23 14:27 5 MG objective General: Well-built, afebrile, palor, mucosae are moist Cardiovascular: Regular S1 and S2. No murmurs, gallops or rubs. No JVD elevation. No pedal edema Respiratory: Normal B/L air entry on room air. Clear lung sounds on auscultation Abdomen: Soft, nontender, mildly tender, normoactive bowel sounds, no rebound tenderness, no organomegaly, no masses Genitourinary: Deferred MSK/skin: Mobilizes 4 limbs. Skin is dry and warm. No rash or bite dong seen in lower or upper extremities. Neurological: No motor, no sensitive deficits, normal speech. Pupils are isocoric and reactive. Psych/Mental Status: A/Ox4, mood is appropriate. laboratory and microbiology Laboratory Tests 12/21/23 07:10 Test 12/21/23 07:10 Range/Units Serum Glucose 77 74-106 mg/dL Problems(with codes): (1) Sigmoid stricture (2) Abnormal finding on GI tract imaging (3) Metastases to the liver (4) Abdominal pain (5) Liver disease Prognosis Plan CT-guided liver biopsy scheduled for tomorrow Cardiology evaluation ongoing Patient will likely need left colon resection followed by chemotherapy Surgical follow up appreciated Plan discussed with: Patient, Spouse ROD BUCKLEY MD Dec 21, 2023 20:03
[2023-12-22] VITALS (9 sets, daily range): BP systolic 87–109; BP diastolic 53–70; PULSE 73–107; RESP 16–18; TEMP 97.7–98.2; O2SAT 92–98
[2023-12-22] MEDS: IOHEXOL 300 MG/ML 100ML BOTTLE IJ ONE (07:03)
--- NOTE | 2023-12-22 08:13 | DVHPNRES ---
Progress Note Date Seen: Dec 22, 2023 Resident Creating Document: TIMOTHY CHACON RESIDENT Medical Necessity Reason Pt with a Central, PICC or Fol: No Subjective Review of Systems This is a 63-year-old female patient with PMHx of systolic heart failure status post Medtronic ICD placement -last EF 35% in September2023, CAD status post 4 RYAN in January 2018 , dyslipidemia, recurrent UTIs and pyelonephritis for the past 4 months, hypertension and internal hemorrhoids presented to the ER with a chief complaint of suprapubic abdominal pain and constipation. Patient recently visited [facility] in August this year with her when she went to the [place] barefoot and had bite dong all over the body, following which she has been getting recurrent UTIs and pyelonephritis starting September, also reports dry cough since the visit. She reports that the abdominal pain started 12/10 and is associated with tenesmus, she only passes small pellet-like stools associated with mucus and a lot of flatus. Also reports history of internal hemorrhoids and that she is experiencing bright red bleed per rectum for the past few days. She denies lifetime history of colonoscopy/endoscopy. Reports nausea, chills on and off but no fever. Denies lifetime history of STI, is monogamous with the . Her did not get any symptoms after the trip. PCP Jodie Rico [employer] Helper: [employer] Dr Schrader Past surgical history; Partial hysterectomy Family history: Unremarkable Social history: Lives with , denies smoking, drank heavily during the vacation - quit since, denies illicit drug 12/17 - Patient seen and examined in bed [address]. reports no acute distress, went to have a bowel movement but only passed gas/mucus and a small stool. She has laboratory reports with her from the past, shows transaminitis starting in 07/10. 12/18 - patient reported no active complaint, undergoing sigmoidoscopy today. Blood pressure is 89/50, IV NS bolus of 500 cc and 250 cc afterwards administered. Blood pressure did not responded to IV fluids. Scheduled for image guided liver biopsy on 12/21 by IR. 12/20 - patient feels fine. Tolerating clear liquid diet. Developing pitting edema, starting midodrine t.i.d. 12/21 - patient reports feeling fine, no acute complaint. Lower extremity pitting edema noticed on exam. Bilateral breath sounds are clear on auscultation. Underwent ultrasound-guided liver biopsy. Patient tolerated procedure well. Stress test is scheduled for tomorrow. NPO starting midnight. Cardiology discontinued midodrine. Objective vital signs Vital Sign Date Time Temp Pulse Resp B/P (MAP) Pulse Ox O2 Delivery O2 Flow Rate FiO2 12/22/23 05:00 98.2 85 17 90/56 (67) 93 98.2 12/21/23 20:00 Room Air* 0 21 Total Intake and Output 12/21/23 12/21/23 12/22/23 15:00 23:00 07:00 Intake Total 740 ml 300 ml Balance 740 ml 300 ml medications Current Medications Medications Dose Ordered Sig/Saige Route Start Time Stop Time Status Last Admin Dose Admin Sodium Chloride 10 ml Q8HR IV 12/17/23 22:00 12/22/23 06:01 10 ML Acetaminophen 325 mg Q4HP PRN PO 12/17/23 22:00 Acetaminophen/ Hydrocodone Bitart 1 tab Q4HP PRN PO 12/17/23 22:00 12/21/23 20:30 1 TAB Ondansetron HCl 4 mg Q4HP PRN IV 12/17/23 22:00 Pantoprazole Sodium 40 mg DAILY IV 12/19/23 10:00 12/21/23 09:06 40 MG Temazepam 15 mg HSPRN PRN PO 12/19/23 20:30 12/21/23 21:54 15 MG Diagnostic Test (Pha) 1 strip IQ4HR 12/20/23 12:00 12/20/23 20:07 1 STRIP Insulin Human Regular IQ4HR SC 12/20/23 12:00 Dextrose 50 ml UD PRN IV 12/20/23 10:00 Ferrous Sulfate 325 mg BIDWM PO 12/20/23 18:00 12/21/23 17:41 325 MG Midodrine 5 mg TID PO 12/21/23 14:00 12/22/23 06:00 5 MG Examination Female patient lying comfortably in bed, in no acute distress, reports no acute distress General: Well-built, afebrile, palor, mucosae are moist Cardiovascular: Regular S1 and S2. No murmurs, gallops or rubs. No JVD elevation. No pedal edema Respiratory: Normal B/L air entry on room air. Clear lung sounds on auscultation Abdomen: Soft, nontender, mildly tender, normoactive bowel sounds, no rebound tenderness, no organomegaly, no masses Genitourinary: Deferred MSK/skin: Mobilizes 4 limbs. Skin is dry and warm. No rash or bite dong seen in lower or upper extremities. Developing mild pitting edema. Neurological: No motor, no sensitive deficits, normal speech. Pupils are isocoric and reactive. Psych/Mental Status: A/Ox4, mood is appropriate. laboratory and microbiology Test 12/22/23 08:03 Range/Units Serum Glucose Pending Microbiology Date/Time Source Procedure Growth Status 12/18/23 13:03 Stool Stool Culture - Final Complete 12/18/23 13:03 Stool Shiga Toxin I & II - Final Complete 12/18/23 12:29 Nose MRSA Screen - Final Complete 12/18/23 11:03 Voided Urine Urine Culture - Final Complete 12/17/23 18:57 Blood Blood Culture - Preliminary NO GROWTH AFTER 72 HOURS OF INCUBATION. 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 GI consulted - Flexible sigmoidoscopy with biopsy completed, showed circumferential polypoid ulcerated inflamed and partially obstructing, distal descending colon mass close to the proximal sigmoid at about 45-50 cm above the anal verge. 1+ internal hemorrhoids She denies lifetime history of colonoscopy/endoscopy. Patient has recent travel history to [facility] H&H 9.3/28.8, hematocrit 77 - Iron panel remarkable for low iron/low% saturation/normal TIBC DC IV Zosyn q.6 hours, IV NS 60 mL/hour, started amoxicillin 12/19/23 to 12/20 ESR 70, CRP 10, CK 409 Tumor markers CEA 326, AFP 2 Patient underwent US guided right hepatic lobe mass biopsy with a single kwon core obtained 12/21. Pathology results pending. Cardiology/surgeon/oncology on board ?NSTEMI II Echocardiogram showed Moderately dilated left ventricular. Severely reduced left ventricular systolic function with estimated ejection fraction of 35%. There is anterior anteroapical wall akinesia. EKG completed, reviewed - no ST changes. Cardiology consultation -stress test scheduled for 12/21. NPO starting midnight.. Resume GDMT when blood pressure normalizes. Troponin 48, 42 downtrending Transaminitis secondary to metastatic colon cancer versus alcohol use versus parasitic infection CT scan abdomen with contrast shows enlarged liver with numerous poorly enhancing hepatic lesions with the larger lesions measuring greater than 12 cm. Suspicious for metastatic lesions. Liver ultrasound completed 8x8x8 left liver lobe soft tissue mass tried hepatomegaly with increased hepatic echogenicity seen. Blood alcohol pending <3 Fresh red bleeding per rectum secondary to sigmoidal adenocarcinoma Pantoprazole 40 mg IV daily Occult blood positive, Clear liquid Diet History of recurrent UTI UA unremarkable Patient reports dark yellow urine Urine bacterial culture History of CAD status post PTCA with 4 RYAN in January 2018 at [facility] Chronic systolic heart failure status post Medtronic ICD Patient is developing lower extremity pitting edema-starting midodrine 5 mg PO TID Reports last echo done in September 2023 - LVEF was 35% Device Interrogation pending Holding home medication metoprolol 25 mg, Entresto 24-26 mg b.i.d. BNP 128 Echocardiogram showed Moderately dilated left ventricular. Severely reduced left ventricular systolic function with estimated ejection fraction of 35%. There is anterior anteroapical wall akinesia. Stress test ordered in order to stratify the patient before surgery Cardiology is following Hypertension - controlled Holding antihypertensives given the low blood pressure History of insomnia Patient takes temazepam 0.5 mg p.r.n. Dyslipidemia Atorvastatin on hold given the transaminitis DVT prophylaxis SCDs On hold given the fresh red bleeding per rectum and positive occult blood GERD prophylaxis Pantoprazole PT eval requested Diet NPO starting midnight 66 minutes of critical care time Plan discussed with patient in which all questions have been answered Goals of care discussed with patient for 20 minutes, full code status Case discussed with Dr. Mcdonnell. Scheduled for stress test 12/22. NPO startin g midnight. Plan discussed with: Patient, Other (RN) My Orders My Orders Orders - TIMOTHY CHACON RESIDENT Procedure Category Date Status Time Complete Blood Count LAB 12/22/23 In Process 04:00 Comprehensive LAB 12/22/23 In Process Metabolic Panel 04:00 Critical Care Time (mins): 66 Addendum Addendum Addendum I was physically present for the galan portions of the service provided to patient by THE RESIDENT. I have reviewed the documentation, discussed the case with resident and agree with the resident's documentation except as noted. Also the patient's clinical case was discussed with the patient's nurse. This medical document was created using an electronic medical record system with computerized dictation system. Although this document has been carefully reviewed, there might still be some phonetic and typographical errors. These areas are purely typographical due to imperfections of the software programs, and do not reflect any compromise in the patient's medical care. Late signature. Date of Service: Dec 22, 2023 Billing Provider: ROSA CRUZ MD Common Visit Codes: 63619-[id number] CARE 30-74 MIN (66 minutes) Secondary Visit Codes: 00681-[id number] CARE PLAN 30 MINUTES (20 minutes) TIMOTHY CHACON RESIDENT Dec 22, 2023 08:13 ROSA CRUZ MD Dec 23, 2023 11:39
[2023-12-22 08:21] LABS: Basophils # (auto) 0.1 10 ^3/uL (0-0.2); Eosinophils # (auto) 0.1 10 ^3/uL (0-0.8); Eosinophils % (auto) 0.9 % (0.0-7.0); Hemoglobin 8.6 g/dL (12.2-16.2); Monocytes # (auto) 0.8 10 ^3/uL (0-1.3); Nucleated Red Blood Cells % 0.1 %; Red Cell Distribution Width 19.1 % (11.8-14.3)
[2023-12-22 08:23] LABS: Basophils % (auto) 0.7 % (0.0-2.0); Hematocrit 27.2 % (36.0-46.0); Lymphocytes # (auto) 0.7 10 ^3/uL (0.4-5.4); Lymphocytes % (auto) 9.1 % (10.0-50.0); Mean Corpuscular Hemoglobin 23.9 pg (28.0-32.0); Mean Corpuscular Hgb Conc. 31.7 g/dL (32.0-36.0); Mean Corpuscular Volume 75.4 fL (80.0-100.0); Monocytes % (auto) 9.6 % (0.0-12.0); Neutrophils # (auto) 6.5 10 ^3/uL (1.6-8.6); Neutrophils % (auto) 79.7 % (37.0-80.0); Platelet Count (auto) 417 10^3/uL (140-450); Red Blood Cells 3.61 10^6/uL (4.0-5.20); White Blood Cell 8.2 10^3/uL (4.4-10.8)
[2023-12-22 08:40] LABS: Alanine Aminotransferase 56 U/L (7-40); Alkaline Phosphatase 732 U/L (46-116); Anion Gap 9 (5-15); Calcium 8.4 mg/dL (8.7-10.4); Carbon Dioxide 19 mmol/L (20-31); Chloride 109 mmol/L (98-107); Glucose 82 mg/dL (74-106); Potassium 3.5 mmol/L (3.5-5.1); Sodium 137 mmol/L (136-145)
[2023-12-22 08:41] LABS: Albumin 3.1 g/dL (3.2-4.8); Aspartate Aminotransferase 373 U/L (13-40); Bilirubin, Total 1.5 mg/dL (0.2-1.0); Total Protein 6.4 g/dL (5.7-8.2)
[2023-12-22 08:44] LABS: BUN/Creatinine Ratio 8.9 (10.0-20.0); Blood Urea Nitrogen < 5 mg/dL (9-23)
[2023-12-22] MEDS: REGADENOSON 0.4 MG/5 ML SYRG IV ONE (09:00)
[2023-12-22] MEDS: GELATIN 1 SPONGE SIZE 50 TOP ONE (10:28)
--- NOTE | 2023-12-22 10:53 | DVH ---
US US GUIDANCE FOR NEEDLE PLACEME, HISTORY: LIVER BX PROCEDURE: Informed consent was obtained. The patient was placed supine on the gurney, and limited US was performed of the liver. The skin over the area of interest was prepped with chlorhexidine which was allowed to dry and draped in the usual sterile fashion. Time out was performed. 1% local lidocai ne was administered. With [intermittent US guidance, Temno 17 gauge outer coaxial guiding needle was advanced into the right hepatic mass. Single core biopsy was obtained using Temno 18 gauge inner core biopsy needle. The specimens were placed in formalin and sent to pathology for analysis. The needle was withdrawn , and the visceral tract embolized with gelfoam pledgets. 10 minutes of manual compress ion was held. Post procedural images were obtained. No immediate complication was identified. FINDINGS: Lobulated right hepatic lobe mass. Intra-procedural images demonstrate biopsy needle within the targeted lesion. Post procedural images do not demonstrate any significant hemorrhage. IMPRESSION: US guided right hepatib lobe mass biopsy with a single kwon core obtained. Pathology results pending. Plan: Bedrest for 4 hours.
--- NOTE | 2023-12-22 16:48 | DVHPN2 ---
Consult Progress Note Date Seen: Dec 22, 2023 Subjective Patient reports: No new complaints Review of Systems: HEENT:Normal, CVS:Normal, RESPIRATORY:Normal, GI:Normal, :Normal, MSK:Normal, NEURO:Normal Objective vital signs Vital Sign Date Time Temp Pulse Resp B/P (MAP) Pulse Ox O2 Delivery O2 Flow Rate FiO2 12/22/23 13:00 89 98/60 (73) 95 12/22/23 12:30 98.1 18 98.1 12/22/23 08:00 Room Air* 0 21 Total Intake and Output 12/21/23 12/21/23 12/22/23 15:00 23:00 07:00 Intake Total 740 ml 300 ml Balance 740 ml 300 ml medications Current Medications Medications Dose Ordered Sig/Sagie Route Start Time Stop Time Status Last Admin Dose Admin Sodium Chloride 10 ml Q8HR IV 12/17/23 22:00 12/22/23 13:15 10 ML Acetaminophen 325 mg Q4HP PRN PO 12/17/23 22:00 Acetaminophen/ Hydrocodone Bitart 1 tab Q4HP PRN PO 12/17/23 22:00 12/21/23 20:30 1 TAB Ondansetron HCl 4 mg Q4HP PRN IV 12/17/23 22:00 Pantoprazole Sodium 40 mg DAILY IV 12/19/23 10:00 12/22/23 09:21 40 MG Temazepam 15 mg HSPRN PRN PO 12/19/23 20:30 12/21/23 21:54 15 MG Ferrous Sulfate 325 mg BIDWM PO 12/20/23 18:00 12/21/23 17:41 325 MG Examination: GENERAL:Normal, HEENT:Normal, NECK:Normal, LUNGS:Normal, CVS:Normal, ABDOMEN:Normal, MSK:Normal, SKIN:Normal, NEURO:Normal, :Normal laboratory and microbiology Laboratory Tests 12/22/23 08:03 Test 12/22/23 08:03 Range/Units Serum Glucose 82 74-106 mg/dL Problem List/Assessment/Plan Problem List/Assessment/Plan Assessment -NSTEMI type 2 -History of CAD status post PTCA with 4 RYAN in January 2018 at [facility] -Chronic HFrEF 35% EF S/P Medtronic ICD , NYHA class II -Sepsis secondary to probable metastatic colon cancer to the liver -Hypotension -sigmoid stricture -metastasis of liver Plan/Recommendation conservative management resume GDMT when blood pressure normalizes Pre-op Cardiac Assessment - Patient is requiring possible left colon resection surgery due to liver metastasis with sigmoid stricture suspected sigmoid cancer. ECG on admission showed sinus rhythm at 90 beats per minute, no acute ST abnormality noted . Denies active cardiac symptoms. Mildly positive troponins likely demand ischemia. Planned ischemic workup with stress test tomorrow Thank you for allowing us participate in this case Case Discussed with Dr Keating. Patient needing preop cardiac assessment for possible colon resection. Plan for stress test tomorrow. NPO after midnight. Critical care, time spent: 49 minutes Plan discussed with: Patient Dietary Evaluation Review Comments: 1) Advance pt diet when medically feasible to a Cardiac diet 2) Continue current plan of care Expected Outcomes/Goals: 1) F/U in 3-5 days Date of Service: Dec 22, 2023 Billing Provider: FLO KEATING MD Cardiology Common Codes: 92912-[id number] INP/OBS CARE(Mod) MANJU GARCIA RESIDENT Dec 22, 2023 16:48
[2023-12-22] MEDS: POTASSIUM EFFERVESENT TAB 25 MEQ PO ONE (17:31)
--- NOTE | 2023-12-22 19:26 | DVHPN2 ---
Progress Note - Dictate Date Seen: Dec 22, 2023 Medical Necessity Reason Pt with a Central, PICC or Fol: No Subjective Patient seen at bedside Resting comfortably Pathology on sigmoid mass biopsies was ADENOCARCINOMA, awaiting MSI stains CEA level elevated to 346 Pt underwent liver bx today vital signs Vital Sign Date Time Temp Pulse Resp B/P (MAP) Pulse Ox O2 Delivery O2 Flow Rate FiO2 12/22/23 17:00 97.7 88 17 95/61 (72) 92 97.7 12/22/23 08:00 Room Air* 0 21 Total Intake and Output 12/21/23 12/21/23 12/22/23 15:00 23:00 07:00 Intake Total 740 ml 300 ml Balance 740 ml 300 ml medications Current Medications Medications Dose Ordered Sig/Saige Route Start Time Stop Time Status Last Admin Dose Admin Sodium Chloride 10 ml Q8HR IV 12/17/23 22:00 12/22/23 13:15 10 ML Acetaminophen 325 mg Q4HP PRN PO 12/17/23 22:00 Acetaminophen/ Hydrocodone Bitart 1 tab Q4HP PRN PO 12/17/23 22:00 12/22/23 18:10 1 TAB Ondansetron HCl 4 mg Q4HP PRN IV 12/17/23 22:00 Pantoprazole Sodium 40 mg DAILY IV 12/19/23 10:00 12/22/23 09:21 40 MG Temazepam 15 mg HSPRN PRN PO 12/19/23 20:30 12/21/23 21:54 15 MG Ferrous Sulfate 325 mg BIDWM PO 12/20/23 18:00 12/22/23 17:31 325 MG objective General: Well-built, afebrile, palor, mucosae are moist Cardiovascular: Regular S1 and S2. No murmurs, gallops or rubs. No JVD elevation. No pedal edema Respiratory: Normal B/L air entry on room air. Clear lung sounds on auscultation Abdomen: Soft, nontender, mildly tender, normoactive bowel sounds, no rebound tenderness, no organomegaly, no masses Genitourinary: Deferred MSK/skin: Mobilizes 4 limbs. Skin is dry and warm. No rash or bite dong seen in lower or upper extremities. Neurological: No motor, no sensitive deficits, normal speech. Pupils are isocoric and reactive. Psych/Mental Status: A/Ox4, mood is appropriate. laboratory and microbiology Laboratory Tests 12/22/23 08:03 Test 12/22/23 08:03 Range/Units Serum Glucose 82 74-106 mg/dL Problems(with codes): (1) Sigmoid stricture (2) Abnormal finding on GI tract imaging (3) Metastases to the liver Prognosis PLAN Cardiology evaluation ongoing Patient will likely need left colon resection followed by chemotherapy Surgical follow up appreciated Dietary Evaluation Review Comments: 1) Advance pt diet when medically feasible to a Cardiac diet 2) Continue current plan of care Expected Outcomes/Goals: 1) F/U in 3-5 days Plan discussed with: Patient, Spouse ROD BUCKLEY MD Dec 22, 2023 19:26
[2023-12-22] MEDS: ONDANSETRON HCL 4 MG/2 ML VIAL IV PRN (20:21)
--- NOTE | 2023-12-22 21:20 | DVHPN2 ---
Progress Note Date Seen: Dec 22, 2023 Medical Necessity Reason Pt with a Central, PICC or Fol: No Objective vital signs Vital Sign Date Time Temp Pulse Resp B/P (MAP) Pulse Ox O2 Delivery O2 Flow Rate FiO2 12/22/23 17:00 97.7 88 17 95/61 (72) 92 97.7 12/22/23 08:00 Room Air* 0 21 Total Intake and Output 12/21/23 12/21/23 12/22/23 14:59 22:59 06:59 Intake Total 740 ml 300 ml Balance 740 ml 300 ml medications Current Medications Medications Dose Ordered Sig/Saige Route Start Time Stop Time Status Last Admin Dose Admin Sodium Chloride 10 ml Q8HR IV 12/17/23 22:00 12/22/23 20:21 10 ML Acetaminophen 325 mg Q4HP PRN PO 12/17/23 22:00 Acetaminophen/ Hydrocodone Bitart 1 tab Q4HP PRN PO 12/17/23 22:00 12/22/23 18:10 1 TAB Ondansetron HCl 4 mg Q4HP PRN IV 12/17/23 22:00 12/22/23 20:21 4 MG Pantoprazole Sodium 40 mg DAILY IV 12/19/23 10:00 12/22/23 09:21 40 MG Temazepam 15 mg HSPRN PRN PO 12/19/23 20:30 12/21/23 21:54 15 MG Ferrous Sulfate 325 mg BIDWM PO 12/20/23 18:00 12/22/23 17:31 325 MG laboratory and microbiology Laboratory Tests 12/22/23 08:03 Test 12/22/23 08:03 Range/Units Serum Glucose 82 74-106 mg/dL Microbiology Date/Time Source Procedure Growth Status 12/18/23 13:03 Stool Stool Culture - Final Complete 12/18/23 13:03 Stool Shiga Toxin I & II - Final Complete 12/18/23 12:29 Nose MRSA Screen - Final Complete 12/18/23 11:03 Voided Urine Urine Culture - Final Complete 12/17/23 18:57 Blood Blood Culture - Final NO GROWTH AFTER 5 DAYS OF INCUBATION. Complete Problem List/Assessment/Plan Problem List/Assessment/Plan AFEBRILE VSS ABD SOFT PATH ADENOCA LEFT COLON CARDIOLOGY EVAL ONGOING CONSIDER LEFT COLON RESECTION POSSIBLE COLOSTOMY BASED ON ONGOING EVAL Plan discussed with: Other Dietary Evaluation Review Comments: 1) Advance pt diet when medically feasible to a Cardiac diet 2) Continue current plan of care Expected Outcomes/Goals: 1) F/U in 3-5 days NEGIN BUCKLEY MD Dec 22, 2023 21:20
[2023-12-23] VITALS (8 sets, daily range): BP systolic 93–161; BP diastolic 49–64; PULSE 64–96; RESP 16–19; TEMP 97.3–98.5; O2SAT 94–97
[2023-12-23 07:12] LABS: Eosinophils # (auto) 0.1 10 ^3/uL (0-0.8); Hemoglobin 8.3 g/dL (12.2-16.2); Monocytes # (auto) 0.9 10 ^3/uL (0-1.3); Nucleated Red Blood Cells % 0.1 %; Red Blood Cells 3.47 10^6/uL (4.0-5.20); White Blood Cell 8.3 10^3/uL (4.4-10.8)
[2023-12-23 07:14] LABS: Basophils # (auto) 0.1 10 ^3/uL (0-0.2); Basophils % (auto) 0.7 % (0.0-2.0); Eosinophils % (auto) 0.9 % (0.0-7.0); Hematocrit 26.3 % (36.0-46.0); Lymphocytes # (auto) 0.9 10 ^3/uL (0.4-5.4); Lymphocytes % (auto) 10.7 % (10.0-50.0); Mean Corpuscular Hgb Conc. 31.6 g/dL (32.0-36.0); Mean Corpuscular Volume 75.8 fL (80.0-100.0); Monocytes % (auto) 10.4 % (0.0-12.0); Neutrophils # (auto) 6.4 10 ^3/uL (1.6-8.6); Neutrophils % (auto) 77.3 % (37.0-80.0); Platelet Count (auto) 390 10^3/uL (140-450); Red Cell Distribution Width 19.6 % (11.8-14.3)
[2023-12-23 07:20] LABS: Anion Gap 11 (5-15); Calcium 8.3 mg/dL (8.7-10.4); Carbon Dioxide 19 mmol/L (20-31); Chloride 108 mmol/L (98-107); Potassium 3.9 mmol/L (3.5-5.1); Sodium 138 mmol/L (136-145)
[2023-12-23 07:26] LABS: Glucose 51 mg/dL (74-106)
[2023-12-23 07:32] LABS: BUN/Creatinine Ratio 9.6 (10.0-20.0); Blood Urea Nitrogen < 5 mg/dL (9-23)
[2023-12-23] MEDS: REGADENOSON 0.4 MG/5 ML SYRG IV ONE ×2 (09:34→09:37)
--- NOTE | 2023-12-23 15:19 | DVHSR ---
APPROVED REPORT Exam: Nuclear Stress Test Indication: Pre-Operative CV evaluation Stress Tech: Debbie Win Ht: 5 ft 2 in Wt: 152 lbs BSA: 1.70 m2 HR: 96 bpm BP: 98/67 mmHg BMI: 27.79 Rhythm: NSR Medical History Medical History: NSTEMI, CAD, EF 35%, Colon CA with mets to liver Allergies: Lisinopril, MSO4 Stress Test Details Stress Test: Pharmacologic stress testing performed using 0.4 mg of regadenoson per 5 mL given IV ov er 10 seconds. Reason for pharmacologic stress test: Pre Op. HR Resting HR: 96 bpmMax Heart Rate (APMHR): 159.409014 bpm Max HR Achieved: 126 bpmTarget HR (85% APMHR): 135.096785 bpm % of APMHR: 79.25 Recovery HR: 105 bpm BP Resting BP: 98/67 mmHg Recovery BP: 91/59 mmHg ECG Resting ECG: NSR Clinical Reason for Termination: Completed protocol Stress ECG Conclusion Resting ECG shows normal sinus rhythm without ST T wave changes to suggest ischemia. Nuclear perfusion scan shows a fixed defect involving the anteroseptal anteroapical and apical schwartz, the segments are akinetic, and it is representing a full-thickness scars of the entire anterior ante roapical wall of the LAD territory. Moderate to severely reduced left ventricular systolic function at 38%. No evidence of italo-infarct ischemia. 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 Mo derately severe reduced ejection fraction at 38%. NM EXAM: Myocardial Perfusion REST/STRESS Imaging Protocol: Rest Tc-99m/Stress Tc-99m 2 days Resting Data Rest SPECT myocardial perfusion imaging was performed in supine position 60 minutes following the int ravenous injection of 11.35 mCi of Tc-99m Sestamibi. Time of rest injection: 1521 Time of rest imagin Administration Route: IV Administration Site: Right Hand Pharmacologic Stress Pharmacologic stress test was performed by injecting Regadenoson 0.4 mg IV push followed by the intra venous injection of 21.2 mCi of Tc-99m Sestamibi. Time of stress injection: 0915 Time of stress imagin Administration Route: IV Administration Site: Right Hand Gated Stress SPECT was performed 60 minutes after stress injection. The images were gated to evaluate regional wall motion and calculate left ventricular ejection fracti on. Stress only was performed in the Supine position. Perfusion There is a large area of severely reduced uptake in the entire segment of the anteroseptal and apical wall which is seen on the stress images as well as the resting images. This area is akinetic and is most consistent with myocardial scar. Nuclear Conclusion ECG Findings: negative for ischemia Clinical Findings: negative for ischemia Nuclear Findings: negative for ischemia Exercise Capacity: abnormal Left Ventricular Function: normal Risk Study: moderate Resting ECG shows normal sinus rhythm without ST T wave changes to suggest ischemia. Nuclear perfusion scan shows a fixed defect involving the anteroseptal anteroapical and apical schwartz, the segments are akinetic, and it is representing a full-thickness scars of the entire anterior ante roapical wall of the LAD territory. Moderate to severely reduced left ventricular systolic function at 38%. No evidence of italo-infarct ischemia. 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 Mo derately severe reduced ejection fraction at 38%.
--- NOTE | 2023-12-23 15:49 | DVHPN2 ---
Consult Progress Note Date Seen: Dec 23, 2023 Objective vital signs Vital Sign Date Time Temp Pulse Resp B/P (MAP) Pulse Ox O2 Delivery O2 Flow Rate FiO2 12/23/23 13:00 97.3 92 16 95/55 (68) 96 97.3 12/23/23 08:00 Room Air* 0 21 Total Intake and Output 12/22/23 12/22/23 12/23/23 15:00 23:00 07:00 Intake Total 400 ml 0 ml Balance 400 ml 0 ml medications Current Medications Medications Dose Ordered Sig/Saige Route Start Time Stop Time Status Last Admin Dose Admin Sodium Chloride 10 ml Q8HR IV 12/17/23 22:00 12/23/23 13:01 10 ML Acetaminophen 325 mg Q4HP PRN PO 12/17/23 22:00 Acetaminophen/ Hydrocodone Bitart 1 tab Q4HP PRN PO 12/17/23 22:00 12/22/23 18:10 1 TAB Ondansetron HCl 4 mg Q4HP PRN IV 12/17/23 22:00 12/22/23 20:21 4 MG Pantoprazole Sodium 40 mg DAILY IV 12/19/23 10:00 12/22/23 09:21 40 MG Temazepam 15 mg HSPRN PRN PO 12/19/23 20:30 12/22/23 22:10 15 MG Ferrous Sulfate 325 mg BIDWM PO 12/20/23 18:00 12/22/23 17:31 325 MG Examination: GENERAL:Normal, HEENT:Normal, NECK:Normal, LUNGS:Normal, CVS:Normal, ABDOMEN:Normal, MSK:Normal, SKIN:Normal, NEURO:Normal, :Normal laboratory and microbiology Laboratory Tests 12/23/23 06:00 Test 12/23/23 06:00 Range/Units Serum Glucose 51 L 74-106 mg/dL Problem List/Assessment/Plan Problem List/Assessment/Plan Assessment -NSTEMI type 2 -History of CAD status post PTCA with 4 RYAN in January 2018 at [facility] - Nuclear perfusion * Scan shows a fixed defect involving the anteroseptal anteroapical and apical schwartz, the segments are akinetic, and it is representing a full-thickness scars of the entire anterior anteroapical wall of the LAD territory. * Large anterior anteroseptal and apical wall infarction without evidence of ischemia. Moderately severe reduced ejection fraction at 38%. * Severely reduced uptake in the entire segment of the anteroseptal and apical wall which is seen on the stress images as well as the resting images. This area is akinetic and is most consistent with myocardial scar. -Chronic HFrEF 35% EF S/P Medtronic ICD , NYHA class II -Sepsis secondary to probable metastatic colon cancer to the liver -Hypotension -sigmoid stricture -metastasis of liver Plan/Recommendation conservative management, no surgical procedures are indicatede as the recent stress test and echo showed clear signs of fibrosis, for which a aggressive medical therapy will be the best option for the patient at this time. Start GDMT progressively, as blood pressure is relatively low we gonna start with entresto 24/26 and then the other GDMT medications will be added cautiously. Entresto 24/26mg PO The patient is assessed to be at moderate to high risk for colectomy surgery. a discussion of the associated risks and benefits is advised before proceeding. Thank you for allowing us participate in this case, we going to keep monitoring this case closely. Case Discussed with Dr Keating. Critical care, time spent: 49 minutes Plan discussed with: Patient Dietary Evaluation Review Comments: 1) Advance pt diet when medically feasible to a Cardiac diet 2) Continue current plan of care Expected Outcomes/Goals: 1) F/U in 3-5 days Date of Service: Dec 23, 2023 Billing Provider: FLO KEATING MD Cardiology Common Codes: [id number] INP/OBS CARE(Mod) MANJU GARCIA RESIDENT Dec 23, 2023 15:49
--- NOTE | 2023-12-23 16:28 | DVHPNRES ---
Progress Note Date Seen: Dec 23, 2023 Resident Creating Document: TIMOTHY CHACON RESIDENT Medical Necessity Reason Pt with a Central, PICC or Fol: No Subjective Review of Systems This is a 63-year-old female patient with PMHx of systolic heart failure status post Medtronic ICD placement -last EF 35% in September2023, CAD status post 4 WISAM in January 2018 , dyslipidemia, recurrent UTIs and pyelonephritis for the past 4 months, hypertension and internal hemorrhoids presented to the ER with a chief complaint of suprapubic abdominal pain and constipation. Patient recently visited [facility] in August this year with her when she went to the [employer] barefoot and had bite dong all over the body, following which she has been getting recurrent UTIs and pyelonephritis starting September, also reports dry cough since the visit. She reports that the abdominal pain started 12/10 and is associated with tenesmus, she only passes small pellet-like stools associated with mucus and a lot of flatus. Also reports history of internal hemorrhoids and that she is experiencing bright red bleed per rectum for the past few days. She denies lifetime history of colonoscopy/endoscopy. Reports nausea, chills on and off but no fever. Denies lifetime history of STI, is monogamous with the . Her did not get any symptoms after the trip. PCP Jod[facility] [address] [employer]: Slava [facility] Dr Schrader Past surgical history; Partial hysterectomy Family history: Unremarkable Social history: Lives with , denies smoking, drank heavily during the vacation - quit since, denies illicit drug 12/17 - Patient seen and examined in bed [address]. reports no acute distress, went to have a bowel movement but only passed gas/mucus and a small stool. She has laboratory reports with her from the past, shows transaminitis starting in 07/10. 12/18 - patient reported no active complaint, undergoing sigmoidoscopy today. Blood pressure is 89/50, IV NS bolus of 500 cc and 250 cc afterwards administered. Blood pressure did not responded to IV fluids. Scheduled for image guided liver biopsy on 12/21 by IR. 12/20 - patient feels fine. Tolerating clear liquid diet. Developing pitting edema, starting midodrine t.i.d. 12/21 - patient reports feeling fine, no acute complaint. Lower extremity pitting edema noticed on exam. Bilateral breath sounds are clear on auscultation. Underwent ultrasound-guided liver biopsy. Patient tolerated procedure well. Stress test is scheduled for tomorrow. NPO starting midnight. Cardiology discontinued midodrine. 12/22- patient reports not getting adequate sleep. Underwent stress test today, negative for ischemia, Large anterior anteroseptal and apical wall infarction without evidence of ischemia. Moderately severe reduced ejection fraction at 38%. Objective vital signs Vital Sign Date Time Temp Pulse Resp B/P (MAP) Pulse Ox O2 Delivery O2 Flow Rate FiO2 12/23/23 13:00 97.3 92 16 95/55 (68) 96 97.3 12/23/23 08:00 Room Air* 0 21 Total Intake and Output 12/22/23 12/22/23 12/23/23 15:00 23:00 07:00 Intake Total 400 ml 0 ml Balance 400 ml 0 ml medications Current Medications Medications Dose Ordered Sig/Saige Route Start Time Stop Time Status Last Admin Dose Admin Sodium Chloride 10 ml Q8HR IV 12/17/23 22:00 12/23/23 13:01 10 ML Acetaminophen 325 mg Q4HP PRN PO 12/17/23 22:00 Acetaminophen/ Hydrocodone Bitart 1 tab Q4HP PRN PO 12/17/23 22:00 12/22/23 18:10 1 TAB Ondansetron HCl 4 mg Q4HP PRN IV 12/17/23 22:00 12/22/23 20:21 4 MG Pantoprazole Sodium 40 mg DAILY IV 12/19/23 10:00 12/22/23 09:21 40 MG Temazepam 15 mg HSPRN PRN PO 12/19/23 20:30 12/22/23 22:10 15 MG Ferrous Sulfate 325 mg BIDWM PO 12/20/23 18:00 12/22/23 17:31 325 MG Sacubitril/ Valsartan 1 tab BID PO 12/23/23 22:00 Examination Female patient lying comfortably in bed, in no acute distress, reports no acute distress General: Well-built, afebrile, palor, mucosae are moist Cardiovascular: Regular S1 and S2. No murmurs, gallops or rubs. No JVD elevation. No pedal edema Respiratory: Normal B/L air entry on room air. Clear lung sounds on auscultation Abdomen: Soft, nontender, mildly tender, normoactive bowel sounds, no rebound tenderness, no organomegaly, no masses Genitourinary: Deferred MSK/skin: Mobilizes 4 limbs. Skin is dry and warm. No rash or bite dong seen in lower or upper extremities. Developing mild pitting edema. Neurological: No motor, no sensitive deficits, normal speech. Pupils are isocoric and reactive. Psych/Mental Status: A/Ox4, mood is appropriate. laboratory and microbiology Laboratory Tests 12/23/23 06:00 Test 12/23/23 06:00 Range/Units Serum Glucose 51 L 74-106 mg/dL Microbiology Date/Time Source Procedure Growth Status 12/18/23 13:03 Stool Stool Culture - Final Complete 12/18/23 13:03 Stool Shiga Toxin I & II - Final Complete 12/18/23 12:29 Nose MRSA Screen - Final Complete 12/18/23 11:03 Voided Urine Urine Culture - Final Complete 12/17/23 18:57 Blood Blood Culture - Final NO GROWTH AFTER 5 DAYS OF INCUBATION. 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 GI consulted - Flexible sigmoidoscopy with biopsy completed, showed circumferential polypoid ulcerated inflamed and partially obstructing, distal descending colon mass close to the proximal sigmoid at about 45-50 cm above the anal verge. 1+ internal hemorrhoids She denies lifetime history of colonoscopy/endoscopy. Patient has recent travel history to [facility] H&H 9.3/28.8, hematocrit 77 - Iron panel remarkable for low iron/low% saturation/normal TIBC DC IV Zosyn q.6 hours, IV NS 60 mL/hour, started amoxicillin 12/19/23 to 12/20 ESR 70, CRP 10, CK 409 Tumor markers CEA 326, AFP 2 Patient underwent US guided right hepatic lobe mass biopsy with a single kwon core obtained 12/21. Pathology results pending. Cardiology/surgeon/oncology/GI on board History of CAD status post PTCA with 4 wisam in January 2018 at [facility] Chronic systolic heart failure status post Medtronic ICD ?NSTEMI II Echocardiogram showed Moderately dilated left ventricular. Severely reduced left ventricular systolic function with estimated ejection fraction of 35%. There is anterior anteroapical wall akinesia. EKG completed, reviewed - no ST changes. Cardiology consultation -underwent stress test 12/22 which showed Large anterior anteroseptal and apical wall infarction without evidence of ischemia. Moderately severe reduced ejection fraction at 38%. Resume GDMT when blood pressure normalizes. Troponin 48, 42 downtrending Started Entresto 24/26 mg daily, other GDMT medications will be added cautiously per Cardiology Transaminitis secondary to metastatic colon cancer CT scan abdomen with contrast shows enlarged liver with numerous poorly enhancing hepatic lesions with the larger lesions measuring greater than 12 cm. Suspicious for metastatic lesions. Liver ultrasound completed 8x8x8 left liver lobe soft tissue mass tried hepatomegaly with increased hepatic echogenicity seen. Blood alcohol level <3 Fresh red bleeding per rectum secondary to sigmoidal adenocarcinoma Acute blood loss anemia; hemoglobin dropped to 8.3 Pantoprazole 40 mg IV daily Occult blood positive, Clear liquid Diet History of recurrent UTI UA unremarkable Patient reports dark yellow urine Urine bacterial culture Hypertension - controlled Holding antihypertensives given the low blood pressure History of insomnia Patient takes temazepam 0.5 mg p.r.n. Dyslipidemia Atorvastatin on hold given the transaminitis DVT prophylaxis SCDs On hold given the fresh red bleeding per rectum and positive occult blood GERD prophylaxis Pantoprazole PT eval requested Diet Soft mechanical diet Plan discussed with patient in which all questions have been answered 55 minutes critical care time Case discussed with Dr. Cruz. underwent stress test 12/22 which showed Large anterior anteroseptal and apical wall infarction without evidence of ischemia. Moderately severe reduced ejection fraction at 38%. Plan discussed with: Patient, Spouse (At bedside), Other (RN) Dietary Evaluation Review Comments: 1) Advance pt diet when medically feasible to a Cardiac diet 2) Continue current plan of care Expected Outcomes/Goals: 1) F/U in 3-5 days Critical Care Time (mins): 55 Addendum Addendum Addendum I was physically present for the galan portions of the service provided to patient by THE RESIDENT. I have reviewed the documentation, discussed the case with resident and agree with the resident's documentation except as noted. Also the patient's clinical case was discussed with the patient's nurse. This medical document was created using an electronic medical record system with computerized dictation system. Although this document has been carefully reviewed, there might still be some phonetic and typographical errors. These areas are purely typographical due to imperfections of the software programs, and do not reflect any compromise in the patient's medical care. Late signature. Date of Service: Dec 23, 2023 Billing Provider: ROSA CRUZ MD Common Visit Codes: [id number] CARE 30-74 MIN (55 minutes) TIMOTHY CHACON Dec 23, 2023 16:28 ROSA CRUZ MD Dec 24, 2023 05:49
--- NOTE | 2023-12-23 16:42 | DVHPN2 ---
Progress Note Date Seen: Dec 23, 2023 Medical Necessity Reason Pt with a Central, PICC or Fol: No Objective vital signs Vital Sign Date Time Temp Pulse Resp B/P (MAP) Pulse Ox O2 Delivery O2 Flow Rate FiO2 12/23/23 16:39 98.5 94 16 93/62 (72) 96 98.5 12/23/23 08:00 Room Air* 0 21 Total Intake and Output 12/22/23 12/22/23 12/23/23 15:00 23:00 07:00 Intake Total 400 ml 0 ml Balance 400 ml 0 ml medications Current Medications Medications Dose Ordered Sig/Saige Route Start Time Stop Time Status Last Admin Dose Admin Sodium Chloride 10 ml Q8HR IV 12/17/23 22:00 12/23/23 13:01 10 ML Acetaminophen 325 mg Q4HP PRN PO 12/17/23 22:00 Acetaminophen/ Hydrocodone Bitart 1 tab Q4HP PRN PO 12/17/23 22:00 12/22/23 18:10 1 TAB Ondansetron HCl 4 mg Q4HP PRN IV 12/17/23 22:00 12/22/23 20:21 4 MG Pantoprazole Sodium 40 mg DAILY IV 12/19/23 10:00 12/22/23 09:21 40 MG Temazepam 15 mg HSPRN PRN PO 12/19/23 20:30 12/22/23 22:10 15 MG Ferrous Sulfate 325 mg BIDWM PO 12/20/23 18:00 12/22/23 17:31 325 MG Sacubitril/ Valsartan 1 tab BID PO 12/23/23 22:00 laboratory and microbiology Laboratory Tests 12/23/23 06:00 Test 12/23/23 06:00 Range/Units Serum Glucose 51 L 74-106 mg/dL Microbiology Date/Time Source Procedure Growth Status 12/18/23 13:03 Stool Stool Culture - Final Complete 12/18/23 13:03 Stool Shiga Toxin I & II - Final Complete 12/18/23 12:29 Nose MRSA Screen - Final Complete 12/18/23 11:03 Voided Urine Urine Culture - Final Complete 12/17/23 18:57 Blood Blood Culture - Final NO GROWTH AFTER 5 DAYS OF INCUBATION. Complete Problem List/Assessment/Plan Problem List/Assessment/Plan AFEBRILE VSS ABD SOFT PATH ADENOCA LEFT COLON LIVER LESION BX METASTATIC COLON CA CARDIOLOGY EVAL ONGOING CONSIDER LEFT COLON RESECTION POSSIBLE COLOSTOMY BASED ON ONGOING EVAL Plan discussed with: Patient My Orders My Orders Orders - NEGIN BUCKLEY MD Procedure Category Date Status Time Soft Diet DIET 12/23/23 Transmitted Dinner Dietary Evaluation Review Comments: 1) Advance pt diet when medically feasible to a Cardiac diet 2) Continue current plan of care Expected Outcomes/Goals: 1) F/U in 3-5 days NEGIN BUCKLEY MD Dec 23, 2023 16:42
--- NOTE | 2023-12-23 19:53 | DVHPN2 ---
Progress Note - Dictate Date Seen: Dec 23, 2023 Medical Necessity Reason Pt with a Central, PICC or Fol: No Subjective Patient was ambulating She is tolerating a pureed diet Pathology on sigmoid mass biopsies was ADENOCARCINOMA, non VARGAS Pathology of liver biopsy also was invasive adenocarcinoma of colonic primary CEA level elevated to 346 vital signs Vital Sign Date Time Temp Pulse Resp B/P (MAP) Pulse Ox O2 Delivery O2 Flow Rate FiO2 12/23/23 16:39 98.5 94 16 93/62 (72) 96 98.5 12/23/23 08:00 Room Air* 0 21 Total Intake and Output 12/22/23 12/22/23 12/23/23 15:00 23:00 07:00 Intake Total 400 ml 0 ml Balance 400 ml 0 ml medications Current Medications Medications Dose Ordered Sig/Saige Route Start Time Stop Time Status Last Admin Dose Admin Sodium Chloride 10 ml Q8HR IV 12/17/23 22:00 12/23/23 13:01 10 ML Acetaminophen 325 mg Q4HP PRN PO 12/17/23 22:00 Acetaminophen/ Hydrocodone Bitart 1 tab Q4HP PRN PO 12/17/23 22:00 12/22/23 18:10 1 TAB Ondansetron HCl 4 mg Q4HP PRN IV 12/17/23 22:00 12/22/23 20:21 4 MG Pantoprazole Sodium 40 mg DAILY IV 12/19/23 10:00 12/22/23 09:21 40 MG Temazepam 15 mg HSPRN PRN PO 12/19/23 20:30 12/22/23 22:10 15 MG Ferrous Sulfate 325 mg BIDWM PO 12/20/23 18:00 12/23/23 17:57 325 MG Sacubitril/ Valsartan 1 tab BID PO 12/23/23 22:00 objective General: Well-built, afebrile, palor, mucosae are moist Cardiovascular: Regular S1 and S2. No murmurs, gallops or rubs. No JVD elevation. No pedal edema Respiratory: Normal B/L air entry on room air. Clear lung sounds on auscultation Abdomen: Soft, nontender, mildly tender, normoactive bowel sounds, no rebound tenderness, no organomegaly, no masses Genitourinary: Deferred MSK/skin: Mobilizes 4 limbs. Skin is dry and warm. No rash or bite dong seen in lower or upper extremities. Neurological: No motor, no sensitive deficits, normal speech. Pupils are isocoric and reactive. Psych/Mental Status: A/Ox4, mood is appropriate. laboratory and microbiology Laboratory Tests 12/23/23 06:00 Test 12/23/23 06:00 Range/Units Serum Glucose 51 L 74-106 mg/dL Problems(with codes): (1) Metastatic adenocarcinoma to liver (2) Adenocarcinoma of sigmoid colon (3) Sigmoid stricture (4) Abnormal finding on GI tract imaging (5) Metastases to the liver Prognosis Plan Patient has mild anemia and mild persistent elevation liver enzymes Start her on IV iron supplements Last cardiology consult note in the chart was on 12/20 Patient underwent stress test on 12/21 She has a fixed cardiac defect an ejection fraction of 38% Cardiology follow up for risk assessment for surgery Surgical follow up appreciated ; oncology follow up Patient will likely need left colon resection followed by chemotherapy Prognosis remains guarded Dietary Evaluation Review Comments: 1) Advance pt diet when medically feasible to a Cardiac diet 2) Continue current plan of care Expected Outcomes/Goals: 1) F/U in 3-5 days Plan discussed with: Patient, Other (Dr Marco Tom) ROD TOM MD Dec 23, 2023 19:52
[2023-12-23] MEDS: TEMAZEPAM 15 MG CAP PO ONE (23:08)
[2023-12-23] MEDS: SACUBITRIL-VALSARTAN 24mg/26mg TAB PO SCH (23:08)
[2023-12-24] VITALS (8 sets, daily range): BP systolic 94–103; BP diastolic 56–68; PULSE 75–96; RESP 16–20; TEMP 97.4–98; O2SAT 92–100
[2023-12-24 07:08] LABS: Eosinophils # (auto) 0.1 10 ^3/uL (0-0.8); Hemoglobin 8.3 g/dL (12.2-16.2); Lymphocytes % (auto) 12.4 % (10.0-50.0); Monocytes # (auto) 0.9 10 ^3/uL (0-1.3); Nucleated Red Blood Cells % 0.1 %
[2023-12-24 07:11] LABS: Anion Gap 8 (5-15); Calcium 8.3 mg/dL (8.7-10.4); Carbon Dioxide 22 mmol/L (20-31); Chloride 106 mmol/L (98-107); Potassium 3.7 mmol/L (3.5-5.1); Sodium 136 mmol/L (136-145)
[2023-12-24 07:17] LABS: Basophils # (auto) 0 10 ^3/uL (0-0.2); Basophils % (auto) 0.6 % (0.0-2.0); Eosinophils % (auto) 1.2 % (0.0-7.0); Hematocrit 25.1 % (36.0-46.0); Mean Corpuscular Hemoglobin 24.9 pg (28.0-32.0); Mean Corpuscular Hgb Conc. 33.1 g/dL (32.0-36.0); Mean Corpuscular Volume 75.3 fL (80.0-100.0); Monocytes % (auto) 11.5 % (0.0-12.0); Neutrophils # (auto) 6.1 10 ^3/uL (1.6-8.6); Neutrophils % (auto) 74.3 % (37.0-80.0); Platelet Count (auto) 378 10^3/uL (140-450); Red Blood Cells 3.34 10^6/uL (4.0-5.20); Red Cell Distribution Width 19.5 % (11.8-14.3); White Blood Cell 8.1 10^3/uL (4.4-10.8)
[2023-12-24 07:18] LABS: BUN/Creatinine Ratio 9.1 (10.0-20.0); Blood Urea Nitrogen 5 mg/dL (9-23); Glucose 83 mg/dL (74-106)
--- NOTE | 2023-12-24 14:21 | DVHPN2 ---
Consult Progress Note Date Seen: Dec 24, 2023 Subjective Patient reports: No new complaints Review of Systems: HEENT:Normal, CVS:Normal, RESPIRATORY:Normal, GI:Normal, :Normal, MSK:Normal, NEURO:Normal Objective vital signs Vital Sign Date Time Temp Pulse Resp B/P (MAP) Pulse Ox O2 Delivery O2 Flow Rate FiO2 12/24/23 13:00 98.0 75 17 94/63 (73) 100 98.0 12/24/23 08:00 Room Air* 0 21 Total Intake and Output 12/23/23 12/23/23 12/24/23 15:00 23:00 07:00 Intake Total 800 ml 240 ml Balance 800 ml 240 ml medications Current Medications Medications Dose Ordered Sig/Saige Route Start Time Stop Time Status Last Admin Dose Admin Sodium Chloride 10 ml Q8HR IV 12/17/23 22:00 12/24/23 06:00 10 ML Acetaminophen 325 mg Q4HP PRN PO 12/17/23 22:00 Acetaminophen/ Hydrocodone Bitart 1 tab Q4HP PRN PO 12/17/23 22:00 12/23/23 20:18 1 TAB Ondansetron HCl 4 mg Q4HP PRN IV 12/17/23 22:00 12/22/23 20:21 4 MG Pantoprazole Sodium 40 mg DAILY IV 12/19/23 10:00 12/24/23 09:43 40 MG Temazepam 15 mg HSPRN PRN PO 12/19/23 20:30 12/22/23 22:10 15 MG Ferrous Sulfate 325 mg BIDWM PO 12/20/23 18:00 12/24/23 09:43 325 MG Sacubitril/ Valsartan 0.5 tab BID PO 12/24/23 14:30 UNV Examination: GENERAL:Normal, HEENT:Normal, NECK:Normal, LUNGS:Normal, CVS:Normal, ABDOMEN:Normal, MSK:Normal, SKIN:Normal, NEURO:Normal, :Normal laboratory and microbiology Laboratory Tests 12/24/23 05:36 Test 12/24/23 05:36 Range/Units Serum Glucose 83 74-106 mg/dL Problem List/Assessment/Plan Problem List/Assessment/Plan Assessment -NSTEMI type 2 -History of CAD status post PTCA with 4 RYAN in January 2018 at [facility] - Nuclear perfusion * Scan shows a fixed defect involving the anteroseptal anteroapical and apical schwartz, the segments are akinetic, and it is representing a full-thickness scars of the entire anterior anteroapical wall of the LAD territory. * Large anterior anteroseptal and apical wall infarction without evidence of ischemia. Moderately severe reduced ejection fraction at 38%. * Severely reduced uptake in the entire segment of the anteroseptal and apical wall which is seen on the stress images as well as the resting images. This area is akinetic and is most consistent with myocardial scar. -Chronic HFrEF 35% EF S/P Medtronic ICD , NYHA class II -Sepsis secondary to probable metastatic colon cancer to the liver -Hypotension -sigmoid stricture -metastasis of liver Plan/Recommendation conservative management, no surgical procedures are indicatede as the recent stress test and echo showed clear signs of fibrosis, for which a aggressive medical therapy will be the best option for the patient at this time. Start GDMT progressively, as blood pressure is relatively low we gonna start with entresto 24/26 and then the other GDMT medications will be added cautiously. Entresto 24/26mg PO (half dose) jardiance 10 mg daily The patient is assessed to be at moderate to high risk for colectomy surgery. a discussion of the associated risks and benefits is advised before proceeding. Resume metoprolol and spironolactone progressively when blood pressure normalizes Thank you for allowing us participate in this case, there is no further workup indicated at this time, we are signing off Case Discussed with Dr Keating. Critical care, time spent: 49 minutes Plan discussed with: Patient Dietary Evaluation Review Comments: 1) Advance pt diet when medically feasible to a Cardiac diet 2) Continue current plan of care Expected Outcomes/Goals: 1) F/U in 3-5 days Date of Service: Dec 24, 2023 Billing Provider: FLO KEATING MD Cardiology Common Codes: [id number] CARE(MANJU Holloway RESIDENT Dec 24, 2023 14:21
--- NOTE | 2023-12-24 14:26 | DVHPN2 ---
Progress Note - Dictate Date Seen: Dec 24, 2023 Medical Necessity Reason Pt with a Central, PICC or Fol: No Subjective No new complaints Pathology on sigmoid mass biopsies was ADENOCARCINOMA, non VARGAS Pathology of liver biopsy also was invasive adenocarcinoma of colonic primary CEA level elevated to 346 vital signs Vital Sign Date Time Temp Pulse Resp B/P (MAP) Pulse Ox O2 Delivery O2 Flow Rate FiO2 12/24/23 13:00 98.0 75 17 94/63 (73) 100 98.0 12/24/23 08:00 Room Air* 0 21 Total Intake and Output 12/23/23 12/23/23 12/24/23 15:00 23:00 07:00 Intake Total 800 ml 240 ml Balance 800 ml 240 ml medications Current Medications Medications Dose Ordered Sig/Saige Route Start Time Stop Time Status Last Admin Dose Admin Sodium Chloride 10 ml Q8HR IV 12/17/23 22:00 12/24/23 06:00 10 ML Acetaminophen 325 mg Q4HP PRN PO 12/17/23 22:00 Acetaminophen/ Hydrocodone Bitart 1 tab Q4HP PRN PO 12/17/23 22:00 12/23/23 20:18 1 TAB Ondansetron HCl 4 mg Q4HP PRN IV 12/17/23 22:00 12/22/23 20:21 4 MG Pantoprazole Sodium 40 mg DAILY IV 12/19/23 10:00 12/24/23 09:43 40 MG Temazepam 15 mg HSPRN PRN PO 12/19/23 20:30 12/22/23 22:10 15 MG Ferrous Sulfate 325 mg BIDWM PO 12/20/23 18:00 12/24/23 09:43 325 MG Sacubitril/ Valsartan 0.5 tab BID PO 12/24/23 14:30 UNV objective General: Well-built, afebrile, palor, mucosae are moist Cardiovascular: Regular S1 and S2. No murmurs, gallops or rubs. No JVD elevation. No pedal edema Respiratory: Normal B/L air entry on room air. Clear lung sounds on auscultation Abdomen: Soft, nontender, mildly tender, normoactive bowel sounds, no rebound tenderness, no organomegaly, no masses Genitourinary: Deferred MSK/skin: Mobilizes 4 limbs. Skin is dry and warm. No rash or bite dong seen in lower or upper extremities. Neurological: No motor, no sensitive deficits, normal speech. Pupils are isocoric and reactive. Psych/Mental Status: A/Ox4, mood is appropriate. laboratory and microbiology Laboratory Tests 12/24/23 05:36 Test 12/24/23 05:36 Range/Units Serum Glucose 83 74-106 mg/dL Problems(with codes): (1) Adenocarcinoma of sigmoid colon (2) Metastatic adenocarcinoma to liver (3) Sigmoid stricture (4) Abnormal finding on GI tract imaging (5) Metastases to the liver Prognosis Plan Patient is undergoing a bowel prep today She is tentatively scheduled for a colon resection tomorrow Patient is moderate risk because of underlying cardiac issues Dietary Evaluation Review Comments: 1) Advance pt diet when medically feasible to a Cardiac diet 2) Continue current plan of care Expected Outcomes/Goals: 1) F/U in 3-5 days Plan discussed with: Patient, Other (Dr Marco Tom) ROD TOM MD Dec 24, 2023 14:26
[2023-12-24] MEDS: GOLYTELY 4L KIT PO ONE (14:45)
[2023-12-24] MEDS: EMPAGLIFLOZIN 10 MG TAB PO ONE (14:45)
[2023-12-24] MEDS: SACUBITRIL-VALSARTAN 24mg/26mg TAB PO SCH (14:45)
--- NOTE | 2023-12-24 16:06 | DVHPNRES ---
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 She reports that the rash started on the scalp, in the occipital region and black in color associated with itching. She reports scratching the rash, on which is started to bleed. She also says that the rash spread downward towards the back and sacral area. She has chronic back pain for which she ran out of her medications, she had some Motrin for the past 2 weeks which she took for the back pain. 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 Also reports taking Lyrica recently. Per Merrick ([phone]) - says he is the significant other, living with her for 15 years; she losing hr balance, thinks quadriplegia is coming back. Reports the patient takes 15-20 Motrin in a day and does not have control over her medication intake, she has intense itching all over the body and that is how she developed the rash in the back of the neck followed by a big blister in the sacral area which she has scratched and she popped and now it appears as a big open wound. Patient had a PCP 15 years back who stopped prescribing pain meds so the patient discontinued following him. Has not seen a PCP since, has a appointment with Dr. Gruber but never follows. Merrick does not want the patient at home, as the patient does not have control over her daily life activities and would prefer assisted living/jail. She had multiple visits to [facility] in the past 3 months for the same reason but he thinks that it this condition is getting worse now, also the patient is experiencing signs of memory loss per him. Past Surgical history Partial hysterectomy, cervical stenosis status post surgery at [facility] 5 years ago - surgeon said she'd be quadriplegic Family history Alzheimer's dementia in father Social history Lives with significant other Merrick, lost contact with family 18 years back per Merrick. Lost her job/car and everything per Merrick Quit smoking 4 years back (smoked half a pack a day for the past 10 years) Denies alcohol or other illicit drug use Allergic history Sulfa drugs cause a widespread rash Home medication: [place] and OxyContin, found taking 15-20 motrins at a time. PCP: Dr Gruber, but she never visited is she i 12/21 - Patient seen and examined at bedside. Reports abdominal pain which is exacerbated on lying on her left side. Night she experienced black tarry stools, stool was sent for occult blood which was positive. She has a history of use Motrin up to 15 tablets a day. Clear liquid diet, IV Protonix 40 mg b.i.d., GI consulted. Avoid NSAIDs or Lovenox. Otoscopic examination completed, both external air are full with shiny wax like substance, tympanic membrane could not be visualized. 12/22 - patient reports feeling fine, sacral wound is dry, dressing is clean and intact. GI consulted, scheduled for EGD 12/23 per the nurse. NPO starting midnight. nuclear perfusion scan showed fixed defect involving the anteroseptal anteroapical and apical schwartz, the segments are akinetic, and it is representing a full-thickness scars of the entire anterior anteroapical wall of the LAD territory. 12/23 - no acute distress. Cardiology started Jardiance 10 mg daily increase the dose of Entresto to b.i.d.. Surgeon Dr. Tom - possible colectomy tomorrow, patient has moderate to high risk for colorectal surgery per Cardiology. Objective vital signs Vital Sign Date Time Temp Pulse Resp B/P (MAP) Pulse Ox O2 Delivery O2 Flow Rate FiO2 12/24/23 13:00 98.0 75 17 94/63 (73) 100 98.0 12/24/23 08:00 Room Air* 0 21 Total Intake and Output 12/23/23 12/23/23 12/24/23 15:00 23:00 07:00 Intake Total 800 ml 240 ml Balance 800 ml 240 ml medications Current Medications Medications Dose Ordered Sig/Saige Route Start Time Stop Time Status Last Admin Dose Admin Sodium Chloride 10 ml Q8HR IV 12/17/23 22:00 12/24/23 06:00 10 ML Acetaminophen 325 mg Q4HP PRN PO 12/17/23 22:00 Acetaminophen/ Hydrocodone Bitart 1 tab Q4HP PRN PO 12/17/23 22:00 12/23/23 20:18 1 TAB Ondansetron HCl 4 mg Q4HP PRN IV 12/17/23 22:00 12/22/23 20:21 4 MG Pantoprazole Sodium 40 mg DAILY IV 12/19/23 10:00 12/24/23 09:43 40 MG Temazepam 15 mg HSPRN PRN PO 12/19/23 20:30 12/22/23 22:10 15 MG Ferrous Sulfate 325 mg BIDWM PO 12/20/23 18:00 12/24/23 09:43 325 MG Sacubitril/ Valsartan 0.5 tab BID PO 12/24/23 14:30 Examination Female patient lying comfortably in bed, in no acute distress, reports no acute distress General: Well-built, afebrile, palor, mucosae are moist Cardiovascular: Regular S1 and S2. No murmurs, gallops or rubs. No JVD elevation. Respiratory: Normal B/L air entry on room air. Clear lung sounds on auscultation Abdomen: Soft, nontender, mildly tender, normoactive bowel sounds, no rebound tenderness, no organomegaly, no masses Genitourinary: Deferred MSK/skin: Mobilizes 4 limbs. Skin is dry and warm. No rash or bite dong seen in lower or upper extremities. Developing mild pitting edema. Neurological: No motor, no sensitive deficits, normal speech. Pupils are isocoric and reactive. Psych/Mental Status: A/Ox4, mood is appropriate. laboratory and microbiology Laboratory Tests 12/24/23 05:36 Test 12/24/23 05:36 Range/Units Serum Glucose 83 74-106 mg/dL Microbiology Date/Time Source Procedure Growth Status 12/18/23 13:03 Stool Stool Culture - Final Complete 12/18/23 13:03 Stool Shiga Toxin I & II - Final Complete 12/18/23 12:29 Nose MRSA Screen - Final Complete 12/18/23 11:03 Voided Urine Urine Culture - Final Complete 12/17/23 18:57 Blood Blood Culture - Final NO GROWTH AFTER 5 DAYS OF INCUBATION. Complete Labs and/or images reviewed: Labs reviewed by me Problem List/Assessment/Plan Problem List/Assessment/Plan Sepsis secondary to suspected metastatic sigmoid adenocarcinoma Metastatic colon cancer of the sigmoid colon - newly diagnosed Iron-deficiency anemia secondary to metastatic colon cancer Multiple hepatic metastasis Hypotension secondary to above CT abdomen completed with contrast shows 6 cm segment of the sigmoid colon demonstrating irregular wall thickening suspicious for primary colon malignancy. GI consulted - Flexible sigmoidoscopy with biopsy completed, showed circumferential polypoid ulcerated inflamed and partially obstructing, distal descending colon mass close to the proximal sigmoid at about 45-50 cm above the anal verge. 1+ internal hemorrhoids She denies lifetime history of colonoscopy/endoscopy. Patient has recent travel history to [facility] H&H 9.3/28.8, hematocrit 77 - Iron panel remarkable for low iron/low% saturation/normal TIBC DC IV Zosyn q.6 hours, IV NS 60 mL/hour, completed amoxicillin 12/19/23 to 12/20 ESR 70, CRP 10, CK 409 Tumor markers CEA 326, AFP 2 Patient underwent US guided right hepatib lobe mass biopsy with a single kwon core obtained 12/21. Pathology results pending. Surgeon Dr. Tom - possible colon resection 12/24. NPO starting midnight. On bowel prep. Cardiology/surgeon/oncology on board History of CAD status post PTCA with 4 wisam in January 2018 at [facility] Chronic systolic heart failure status post Medtronic ICD ?NSTEMI II Echocardiogram showed Moderately dilated left ventricular. Severely reduced left ventricular systolic function with estimated ejection fraction of 35%. There is anterior anteroapical wall akinesia. EKG completed, reviewed - no ST changes. Cardiology consultation -underwent stress test 12/22 which showed Large anterior anteroseptal and apical wall infarction without evidence of ischemia. Moderately severe reduced ejection fraction at 38%. Troponin 48, 42 downtrending Started Entresto 24/26 mg b.i.d., Jardiance 10 mg daily per Cardiology Transaminitis secondary to metastatic colon cancer CT scan abdomen with contrast shows enlarged liver with numerous poorly enhancing hepatic lesions with the larger lesions measuring greater than 12 cm. Suspicious for metastatic lesions. Liver ultrasound completed 8x8x8 left liver lobe soft tissue mass tried hepatomegaly with increased hepatic echogenicity seen. Blood alcohol level <3 Fresh red bleeding per rectum secondary to sigmoidal adenocarcinoma Pantoprazole 40 mg IV daily Occult blood positive, Clear liquid Diet History of recurrent UTI UA unremarkable Patient reports dark yellow urine Urine bacterial culture unremarkable Hypertension - controlled Holding antihypertensives given the low blood pressure History of insomnia Patient takes temazepam 0.5 mg p.r.n. Dyslipidemia Atorvastatin on hold given the transaminitis DVT prophylaxis SCDs On hold given the fresh red bleeding per rectum and positive occult blood GERD prophylaxis Pantoprazole PT eval requested Diet NPO starting midnight. Plan discussed with patient in which all questions have been answered Goals of care discussed with patient for more than 22 minutes, full code status Case discussed with Dr. Tavares. underwent stress test 12/22 which showed Large anterior anteroseptal and apical wall infarction without evidence of ischemia. Moderately severe reduced ejection fraction at 38%. Moderate to high-risk of colorectal surgery per Cardiology. Possible colectomy 12/24. Bowel prep tonight. Risks of procedure explained including , and acute renal failure requiring hemodialysis. Plan discussed with: Patient, Spouse Dietary Evaluation Review Comments: 1) Advance pt diet when medically feasible to a Cardiac diet 2) Continue current plan of care Expected Outcomes/Goals: 1) F/U in 3-5 days TIMOTHY CHACON RESIDENT Dec 24, 2023 16:06
[2023-12-24] MEDS: POTASSIUM EFFERVESENT TAB 25 MEQ PO ONE (17:51)
[2023-12-25] VITALS (45 sets, daily range): BP systolic 48–119; BP diastolic 41–74; PULSE 68–144; RESP 10–26; TEMP 97.7–100.2; O2SAT 94–100
[2023-12-25 08:32] LABS: Lymphocytes # (auto) 0.8 10 ^3/uL (0.4-5.4); Monocytes # (auto) 0.9 10 ^3/uL (0-1.3); Monocytes % (auto) 9.5 % (0.0-12.0); Neutrophils # (auto) 7.3 10 ^3/uL (1.6-8.6); White Blood Cell 9.1 10^3/uL (4.4-10.8)
[2023-12-25 08:35] LABS: Basophils # (auto) 0.1 10 ^3/uL (0-0.2); Basophils % (auto) 0.6 % (0.0-2.0); Eosinophils # (auto) 0 10 ^3/uL (0-0.8); Eosinophils % (auto) 0.4 % (0.0-7.0); Hemoglobin 9.1 g/dL (12.2-16.2); Lymphocytes % (auto) 9.3 % (10.0-50.0); Mean Corpuscular Hemoglobin 24.6 pg (28.0-32.0); Mean Corpuscular Hgb Conc. 32.6 g/dL (32.0-36.0); Mean Corpuscular Volume 75.5 fL (80.0-100.0); Neutrophils % (auto) 80.2 % (37.0-80.0); Nucleated Red Blood Cells % 0.1 %; Platelet Count (auto) 426 10^3/uL (140-450); Red Blood Cells 3.71 10^6/uL (4.0-5.20)
[2023-12-25 08:51] LABS: Anion Gap 9 (5-15); Calcium 8.1 mg/dL (8.7-10.4); Carbon Dioxide 22 mmol/L (20-31); Chloride 104 mmol/L (98-107); Potassium 3.4 mmol/L (3.5-5.1); Sodium 135 mmol/L (136-145)
[2023-12-25 08:57] LABS: BUN/Creatinine Ratio 9.4 (10.0-20.0); Blood Urea Nitrogen < 5 mg/dL (9-23); Glucose 71 mg/dL (74-106)
--- NOTE | 2023-12-25 09:03 | DVHPN2 ---
Progress Note - Dictate Date Seen: Dec 25, 2023 Medical Necessity Reason Pt with a Central, PICC or Fol: No Subjective No new complaints Patient finished bowel prep yesterday Pathology on sigmoid mass biopsies was ADENOCARCINOMA, non VARGAS Pathology of liver biopsy also was invasive adenocarcinoma of colonic primary CEA level elevated to 346 vital signs Vital Sign Date Time Temp Pulse Resp B/P (MAP) Pulse Ox O2 Delivery O2 Flow Rate FiO2 12/25/23 05:00 98.0 101 19 93/62 (72) 96 98.0 12/24/23 20:00 Room Air* 0 21 Total Intake and Output 12/24/23 12/24/23 12/25/23 15:00 23:00 07:00 Intake Total 800 ml Balance 800 ml medications Current Medications Medications Dose Ordered Sig/Saige Route Start Time Stop Time Status Last Admin Dose Admin Sodium Chloride 10 ml Q8HR IV 12/17/23 22:00 12/25/23 06:04 10 ML Acetaminophen 325 mg Q4HP PRN PO 12/17/23 22:00 Acetaminophen/ Hydrocodone Bitart 1 tab Q4HP PRN PO 12/17/23 22:00 12/24/23 19:06 1 TAB Ondansetron HCl 4 mg Q4HP PRN IV 12/17/23 22:00 12/22/23 20:21 4 MG Pantoprazole Sodium 40 mg DAILY IV 12/19/23 10:00 12/25/23 08:37 40 MG Temazepam 15 mg HSPRN PRN PO 12/19/23 20:30 12/24/23 22:30 15 MG Ferrous Sulfate 325 mg BIDWM PO 12/20/23 18:00 12/24/23 09:43 325 MG Sacubitril/ Valsartan 0.5 tab BID PO 12/24/23 14:30 objective General: Well-built, afebrile, palor, mucosae are moist Cardiovascular: Regular S1 and S2. No murmurs, gallops or rubs. No JVD elevation. No pedal edema Respiratory: Normal B/L air entry on room air. Clear lung sounds on auscultation Abdomen: Soft, nontender, mildly tender, normoactive bowel sounds, no rebound tenderness, no organomegaly, no masses Genitourinary: Deferred MSK/skin: Mobilizes 4 limbs. Skin is dry and warm. No rash or bite dong seen in lower or upper extremities. Neurological: No motor, no sensitive deficits, normal speech. Pupils are isocoric and reactive. Psych/Mental Status: A/Ox4, mood is appropriate. laboratory and microbiology Laboratory Tests 12/25/23 07:28 Test 12/25/23 07:28 Range/Units Serum Glucose 71 L 74-106 mg/dL Problems(with codes): (1) Adenocarcinoma of sigmoid colon (2) Metastatic adenocarcinoma to liver (3) Sigmoid stricture (4) Abnormal finding on GI tract imaging Prognosis Plan Patient is scheduled for a laparotomy with left colon resection today Further recommendations and postop orders as per surgical consult I will follow up patient with you Dietary Evaluation Review Comments: 1) Advance pt diet when medically feasible to a Cardiac diet 2) Continue current plan of care Expected Outcomes/Goals: 1) F/U in 3-5 days Plan discussed with: Patient, Spouse, Other (Dr Marco Tom ) ROD TOM MD Dec 25, 2023 09:03
[2023-12-25 09:45] LABS: INR 1.74 (0.9-1.15); Partial Thromboplastin Time 39.4 SEC (24.5-34.5); Prothrombin Time 17.7 sec (9.3-11.8)
[2023-12-25] MEDS ORDERED: MIDAZOLAM HCL 2MG/2ML 2ml VIAL (1mg/ml) ONE (11:05)
[2023-12-25] MEDS ORDERED: HYDROmorphone HCL 2 MG/ML VL/or syr ONE (12:09)
[2023-12-25] MEDS: POTASSIUM EFFERVESENT TAB 25 MEQ PO ONE (12:16)
[2023-12-25] MEDS ORDERED: CALCIUM CHL(10%) 100MG/ML 10ML VIAL IV ONE (12:26)
[2023-12-25] MEDS: NOREPINEPHRINE 8 MG/250ML KIT 250 ML IV ONE (12:27)
--- NOTE | 2023-12-25 13:28 | DVHOP2 ---
Operative Report [id number] OBSTRUCTING DISTAL COLON TUMOR LAP JOSE LEFT COLON RESECTION WITH PRIMARY ANASTOMOSIS NO COMPLICATIONS EBL 100 CC NO DRAINS NEGIN BUCKLEY MD Dec 25, 2023 13:28
[2023-12-25 13:56] LABS: Base Excess -9.4 mmol/L (-2.0-3.0)
--- NOTE | 2023-12-25 14:47 | DVHOP ---
DATE OF SURGERY: 12/25/2023 PREOPERATIVE DIAGNOSIS: Left colon obstructing mass with adenocarcinoma, metastatic to the liver. POSTOPERATIVE DIAGNOSIS: Left colon obstructing mass with adenocarcinoma, metastatic to the liver. PROCEDURE: Laparoscopic lysis of adhesions with open left colon resection and primary anastomosis. SURGEON: Anurag Tom MD ASSISTANTS: Xavier Santana MD and Joey. ESTIMATED BLOOD LOSS: Close to 100 mL. DRAINS: No drains were used. COMPLICATIONS: No complications were encountered. DESCRIPTION OF PROCEDURE: The patient was prepped and draped in the usual sterile fashion in the supine position and a supraumbilical incision was applied, was taken down to the fascia. The Veress needle was introduced and CO2 insufflation was done to 15 mmHg. The needle was withdrawn, replaced by the 5 mm trocar and a telescope introduced. Adhesions were noted and a 5 mm ports were applied more inferiorly to the umbilicus, was taken down to the deeper tissues and I entered into the abdomen. The CO2 insufflation was ongoing and Harmonic device was used to release some of the adhesions, but it was not possible, so a decision was made to do the open surgery, exploratory laparotomy was carried out. An incision was applied going to the right of the umbilicus supraumbilically and infraumbilically going up to the symphysis pubis. This was taken down to the deeper tissues and the tumor was located in the rectosigmoid location. It was adherent to the retroperitoneal tissue and the Latoya ink sin also was seen. There was nothing close to that. Most of the tumor was proximal to that. Decision was made to do left colon resection with the descending colon as well as the proximal sigmoid colon; and with this being considered, Dr. Santana and Mr. Cook helped me with this procedure as well and LigaSure device was used to release the descending colon from the paracolic gutter and the sigmoid colon already was noted and Bookwalter retractor was applied with suitable retraction. The sigmoid colon and the descending colon was identified and a suitable spot was selected distal to the tumor that was tumor free and transected using the CLARENCE stapling device. The mesenteric tissue was taken down using LigaSure device along with clips being applied to various locations and suturing as well to contain the hemostasis. With this being done, a suitable spot was selected in the descending colon proximal to the tumor and to staple right across and then the tumor was released from the remaining mesenteric tissue and then completely removed and the suture was applied in the proximal side and submitted for pathology. The [id number] staple anastomosis was carried out between the descending colon and the sigmoid colon and the two segments were brought together easily. Sutures were applied at the staple line for both of them and openings were applied on both the sides and stapling device was introduced and it was stapled right across and then the final opening was stapled across as well using a stapling device reinforced with 3-0 silk suture at various locations. The anastomosis was accomplished successfully without any complication. It was replaced back into the abdomen. Irrigation was performed. Hemostasis was secured. Sponge count, needle count was reported correct. No further intervention was necessary and the mesh of the liver mets were noted as well. With this being done, the fascia was then brought together using PDS suture and the skin incision was brought together using stapling device after the subcutaneous tissues were brought together using Vicryl suture in interrupted fashion. Dressing was applied. The patient tolerated the procedure well and was taken back to the recovery room in stable condition. MD KOLE Pinto/LANA/CYN TID: [id number] RECEIPT: [id number] cc: Xavier Santana MD, Iris Cook
[2023-12-25] MEDS: NOREPINEPHRINE 8 MG/250ML KIT 250 ML IV SCH (15:15)
[2023-12-25] MEDS: MIDAZOLAM DRIP 50 mg/50mL 50 ML IV SCH (16:00)
[2023-12-25] MEDS ORDERED: NITROGLYCERIN 0.4 MG SL TAB SL PRN (16:00)
[2023-12-25] MEDS: fentaNYL Drip 2500mCg/250mlNS 250 ML IV SCH (16:00)
[2023-12-25] MEDS ORDERED: HYDROmorphone HCL 2 MG/ML VL/or syr IV PRN (16:00)
[2023-12-25] MEDS: D5W/SOD CHL 0.45% 1,000 ML IV SCH (16:38)
[2023-12-25] MEDS: PROPOFOL 100 ML IV SCH (16:45)
[2023-12-25] MEDS: PROPOFOL 100 ML IV ONE (16:59)
[2023-12-25] MEDS: cefTRIAXone 1GM/50ML D5W 50 ML IV SCH (17:30)
[2023-12-25] MEDS: VASOPRESSIN 20 UNITS in SODIUM CHL 0.9% 99 ML IV SCH (17:39)
[2023-12-25 18:11] LABS: Base Excess -9.3 mmol/L (-2.0-3.0)
[2023-12-25] MEDS: PHENYLEPHRINE IV 250 ML IV SCH (18:22)
[2023-12-25] MEDS: DOPamine 1600MCG/ML D5W 250 ML IV SCH (18:30)
[2023-12-25] MEDS: EPINEPHrine HCL 250 ML IV SCH (18:30)
--- NOTE | 2023-12-25 19:18 | DVHPNRES ---
Progress Note Date Seen: Dec 25, 2023 Resident Creating Document: TIMOTHY CHACON RESIDENT Medical Necessity Reason Pt with a Central, PICC or Fol: No Subjective Review of Systems This is a 63-year-old female patient with PMHx of systolic heart failure status post Medtronic ICD placement -last EF 35% in September2023, CAD status post 4 WISAM in January 2018 , dyslipidemia, recurrent UTIs and pyelonephritis for the past 4 months, hypertension and internal hemorrhoids presented to the ER with a chief complaint of suprapubic abdominal pain and constipation. Patient recently visited [facility] in August this year with her [place] and had bite dong all over the body, following which she has been getting recurrent UTIs and pyelonephritis starting September, also reports dry cough since the visit. She reports that the abdominal pain started 12/10 and is associated with tenesmus, she only passes small pellet-like stools associated with mucus and a lot of flatus. Also reports history of internal hemorrhoids and that she is experiencing bright red bleed per rectum for the past few days. She denies lifetime history of colonoscopy/endoscopy. Reports nausea, chills on and off but no fever. Denies lifetime history of STI, is monogamous with the . Her did not get any symptoms after the trip. PCP Jodie Rico [employer] Instructor: [employer] Dr Schrader Past surgical history; Partial hysterectomy Family history: Unremarkable Social history: Lives with , denies smoking, drank heavily during the vacation - quit since, denies illicit drug 12/17 - Patient seen and examined in bed [address]. reports no acute distress, went to have a bowel movement but only passed gas/mucus and a small stool. She has laboratory reports with her from the past, shows transaminitis starting in 07/10. 12/18 - patient reported no active complaint, undergoing sigmoidoscopy today. Blood pressure is 89/50, IV NS bolus of 500 cc and 250 cc afterwards administered. Blood pressure did not responded to IV fluids. Scheduled for image guided liver biopsy on 12/21 by IR. 12/20 - patient feels fine. Tolerating clear liquid diet. Developing pitting edema, starting midodrine t.i.d. 12/21 - patient reports feeling fine, no acute complaint. Lower extremity pitting edema noticed on exam. Bilateral breath sounds are clear on auscultation. Underwent ultrasound-guided liver biopsy. Patient tolerated procedure well. Stress test is scheduled for tomorrow. NPO starting midnight. Cardiology discontinued midodrine. 12/22- patient reports not getting adequate sleep. Underwent stress test today, negative for ischemia, Large anterior anteroseptal and apical wall infarction without evidence of ischemia. Moderately severe reduced ejection fraction at 38%. 12/23 - no acute distress. Cardiology started Jardiance 10 mg daily increase the dose of Entresto to b.i.d.. Surgeon Dr. Tom - possible colectomy tomorrow, patient has moderate to high risk for colorectal surgery per Cardiology. 12/24 - patient is seen and examined at bedside. Reports no active complaint. Completed bowel prep. Underwent colectomy 12/24. Further recommendations and postop orders as per surgeon and ICU team. Objective vital signs Vital Sign Date Time Temp Pulse Resp B/P (MAP) Pulse Ox O2 Delivery O2 Flow Rate FiO2 12/25/23 18:30 87 26 89/44 (59) 97 92/57 (69) 12/25/23 18:10 50 12/25/23 17:36 Mechanical Ventilator+ 12/25/23 15:30 97.7 97.7 12/25/23 13:14 10.0 Total Intake and Output 12/24/23 12/24/23 12/25/23 15:00 23:00 07:00 Intake Total 800 ml Balance 800 ml medications Current Medications Medications Dose Ordered Sig/Saige Route Start Time Stop Time Status Last Admin Dose Admin Sodium Chloride 10 ml Q8HR IV 12/17/23 22:00 12/25/23 06:04 10 ML Acetaminophen 325 mg Q4HP PRN PO 12/17/23 22:00 Acetaminophen/ Hydrocodone Bitart 1 tab Q4HP PRN PO 12/17/23 22:00 12/24/23 19:06 1 TAB Ondansetron HCl 4 mg Q4HP PRN IV 12/17/23 22:00 12/22/23 20:21 4 MG Pantoprazole Sodium 40 mg DAILY IV 12/19/23 10:00 12/25/23 08:37 40 MG Temazepam 15 mg HSPRN PRN PO 12/19/23 20:30 12/24/23 22:30 15 MG Ferrous Sulfate 325 mg BIDWM PO 12/20/23 18:00 12/24/23 09:43 325 MG Sacubitril/ Valsartan 0.5 tab BID PO 12/24/23 14:30 Midazolam HCl 50 ml @ 1 mls/hr Q24H IV 12/25/23 12:30 12/25/23 16:00 15 MLS/HR Fentanyl Citrate 250 ml @ 2.5 mls/hr Q24H IV 12/25/23 12:30 12/25/23 16:00 2.5 MLS/HR Norepinephrine Bitartrate 250 ml @ 3.75 mls/hr Q24H IV 12/25/23 12:45 12/25/23 15:15 7.5 MLS/HR Dextrose/Sodium Chloride 1,000 ml @ 75 mls/hr [id number] IV 12/25/23 16:00 12/25/23 16:38 75 MLS/HR Hydromorphone HCl 0.25 mg Q4HPRN PRN IV 12/25/23 16:00 Nitroglycerin 0.4 mg Q5MINP PRN SL 12/25/23 16:00 Propofol 100 ml @ 2.253 mls/ hr Q24H IV 12/25/23 16:15 12/25/23 16:45 2.253 MLS/HR Vasopressin 20 units/Sodium Chloride 100 ml @ 9 mls/hr Q11H7M IV 12/25/23 17:15 12/25/23 17:39 9 MLS/HR Phenylephrine HCl 250 ml @ 30 mls/hr Q8H20M IV 12/25/23 17:15 12/25/23 18:22 30 MLS/HR Ceftriaxone Sodium 50 ml @ 100 mls/hr DAILY IV 12/25/23 17:30 12/25/23 17:30 100 MLS/HR Dopamine HCl/ Dextrose 250 ml @ 14.081 mls/ hr [id number] IV 12/25/23 18:30 Epinephrine HCl 250 ml @ 7.5 mls/hr Q24H IV 12/25/23 18:30 Examination Examination completed at 7:00 a.m. Female patient lying comfortably in bed, in no acute distress, reports no acute distress General: Well-built, afebrile, palor, mucosae are moist Cardiovascular: Regular S1 and S2. No murmurs, gallops or rubs. No JVD elevation. No pedal edema Respiratory: Normal B/L air entry on room air. Clear lung sounds on auscultation Abdomen: Soft, nontender, mildly tender, normoactive bowel sounds, no rebound tenderness, no organomegaly, no masses Genitourinary: Deferred MSK/skin: Mobilizes 4 limbs. Skin is dry and warm. No rash or bite dong seen in lower or upper extremities. Developing pitting edema. Neurological: No motor, no sensitive deficits, normal speech. Pupils are isocoric and reactive. Psych/Mental Status: A/Ox4, mood is appropriate. laboratory and microbiology Laboratory Tests 12/25/23 07:28 Test 12/25/23 07:28 Range/Units Serum Glucose 71 L 74-106 mg/dL Microbiology Date/Time Source Procedure Growth Status 12/18/23 13:03 Stool Stool Culture - Final Complete 12/18/23 13:03 Stool Shiga Toxin I & II - Final Complete 12/18/23 12:29 Nose MRSA Screen - Final Complete 12/18/23 11:03 Voided Urine Urine Culture - Final Complete 12/17/23 18:57 Blood Blood Culture - Final NO GROWTH AFTER 5 DAYS OF INCUBATION. 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 Tom - underwent left colon resection with primary anastomosis on 12/24. Patient required pressor support. Patient underwent US guided right hepatib lobe mass biopsy with a single kwon core obtained 12/21. Pathology results pending. CT abdomen completed with contrast shows 6 cm segment of the sigmoid colon demonstrating irregular wall thickening suspicious for primary colon malignancy. GI consulted - Flexible sigmoidoscopy with biopsy completed, showed circumferential polypoid ulcerated inflamed and partially obstructing, distal descending colon mass close to the proximal sigmoid at about 45-50 cm above the anal verge. 1+ internal hemorrhoids She denies lifetime history of colonoscopy/endoscopy. Patient has recent travel history to [facility] H&H 9.3/28.8, hematocrit 77 - Iron panel remarkable for low iron/low% saturation/normal TIBC DC IV Zosyn q.6 hours, IV NS 60 mL/hour, completed amoxicillin 12/19/23 to 12/20 ESR 70, CRP 10, CK 409 Tumor markers CEA 326, AFP 2 Cardiology/surgeon/oncology on board History of CAD status post PTCA with 4 wisam in January 2018 at [facility] Chronic systolic heart failure status post Medtronic ICD ?NSTEMI II Echocardiogram showed Moderately dilated left ventricular. Severely reduced left ventricular systolic function with estimated ejection fraction of 35%. There is anterior anteroapical wall akinesia. EKG completed, reviewed - no ST changes. Cardiology consultation -underwent stress test 12/22 which showed Large anterior anteroseptal and apical wall infarction without evidence of ischemia. Moderately severe reduced ejection fraction at 38%. Troponin 48, 42 downtrending Started Entresto 24/26 mg b.i.d., Jardiance 10 mg daily per Cardiology Transaminitis secondary to metastatic colon cancer CT scan abdomen with contrast shows enlarged liver with numerous poorly enhancing hepatic lesions with the larger lesions measuring greater than 12 cm. Suspicious for metastatic lesions. Liver ultrasound completed [id number] left liver lobe soft tissue mass tried hepatomegaly with increased hepatic echogenicity seen. Blood alcohol level <3 Fresh red bleeding per rectum secondary to sigmoidal adenocarcinoma Pantoprazole 40 mg IV daily Occult blood positive, Clear liquid Diet History of recurrent UTI UA unremarkable Patient reports dark yellow urine Urine bacterial culture unremarkable Hypertension - controlled Holding antihypertensives given the low blood pressure History of insomnia Patient takes temazepam 0.5 mg p.r.n. Dyslipidemia Atorvastatin on hold given the transaminitis DVT prophylaxis SCDs On hold given the fresh red bleeding per rectum and positive occult blood GERD prophylaxis Pantoprazole Plan discussed with patient in which all questions have been answered Goals of care discussed with patient for more than 22 minutes, full code status Case discussed with Dr. Tavares. Patient requiring pressor support, transferred to ICU post surgery. Further recommendations and postop orders as per surgeon and ICU team. Plan discussed with: Patient, Spouse My Orders My Orders Orders - TIMOTHY CHACON RESIDENT Procedure Category Date Status Time Mrsa Screen TONYA 12/25/23 In Process 16:11 Dietary Evaluation Review Comments: 1) Advance pt diet when medically feasible to a Cardiac diet 2) Continue current plan of care Expected Outcomes/Goals: 1) F/U in 3-5 days OSWALDO,TIMOTHY RESIDENT Dec 25, 2023 19:18
[2023-12-25 20:14] LABS: Eosinophils # (auto) 0 10 ^3/uL (0-0.8); Nucleated Red Blood Cells % 0.2 %
[2023-12-25 20:15] LABS: Basophils # (auto) 0.1 10 ^3/uL (0-0.2); Basophils % (auto) 0.7 % (0.0-2.0); Eosinophils % (auto) 0.2 % (0.0-7.0); Hematocrit 34.3 % (36.0-46.0); Hemoglobin 11.1 g/dL (12.2-16.2); Lymphocytes # (auto) 2.2 10 ^3/uL (0.4-5.4); Lymphocytes % (auto) 11.1 % (10.0-50.0); Mean Corpuscular Hemoglobin 25.4 pg (28.0-32.0); Mean Corpuscular Hgb Conc. 32.4 g/dL (32.0-36.0); Mean Corpuscular Volume 78.4 fL (80.0-100.0); Monocytes # (auto) 1.4 10 ^3/uL (0-1.3); Monocytes % (auto) 6.8 % (0.0-12.0); Neutrophils # (auto) 16.5 10 ^3/uL (1.6-8.6); Neutrophils % (auto) 81.2 % (37.0-80.0); Platelet Count (auto) 711 10^3/uL (140-450); Red Blood Cells 4.38 10^6/uL (4.0-5.20); Red Cell Distribution Width 19.8 % (11.8-14.3); White Blood Cell 20.3 10^3/uL (4.4-10.8)
--- NOTE | 2023-12-25 20:17 | DVH ---
CHEST RADIOGRAPH Indication:shock Technique: Single frontal view of the chest was obtained COMPARISON: XY CHEST XRAY 1 VIEW on DOS: 12/17/23 FINDINGS: Lines and Tubes: Right central venous catheter and endotracheal tube in satisfactory position. Left chest wall AICD. Lungs: Low lung volumes. Pleura: No effusion. No pneumothorax. Cardiomediastinal contours: Cardiomegaly. Bones: Unremarkable IMPRESSION: Lines and tubes in satisfactory position. Low lung volumes.
[2023-12-25 20:35] LABS: Alanine Aminotransferase 43 U/L (7-40); Albumin 3.1 g/dL (3.2-4.8); Alkaline Phosphatase 594 U/L (46-116); Anion Gap 10 (5-15); Aspartate Aminotransferase 281 U/L (13-40); BUN/Creatinine Ratio 8.2 (10.0-20.0); Blood Urea Nitrogen 6 mg/dL (9-23); Calcium 8.4 mg/dL (8.7-10.4); Carbon Dioxide 18 mmol/L (20-31); Chloride 106 mmol/L (98-107); Glucose 129 mg/dL (74-106); Potassium 3.8 mmol/L (3.5-5.1); Sodium 134 mmol/L (136-145)
[2023-12-25 20:36] LABS: Bilirubin, Total 1.7 mg/dL (0.2-1.0); Total Protein 6.2 g/dL (5.7-8.2)
[2023-12-25 20:39] LABS: INR 1.75 (0.9-1.15); Prothrombin Time 17.8 sec (9.3-11.8)
[2023-12-25] MEDS ORDERED: VANCOMYCIN PER PHARMACY 0 MG IV SCH (20:45)
[2023-12-25] MEDS: SODIUM CHLORIDE 0.9% 1,000 ML IV ONE (21:00)
[2023-12-25] MEDS: MEROPENEM 1GM IVPB 50 ML IV ONE (21:40)
--- NOTE | 2023-12-25 21:48 | DVHTSRES ---
Transfer Summary Transfer Summary Resident Creating Document: ABELINO HUFF RESIDENT Date of Admission Dec 17, 2023 at 21:54 Date of Transfer: Jan 02, 2024 Transfer Diagnosis s/p colectomy on dec 25 possible septic shock cultures positive for e cloacae in sputum Brief Hx & Hospital Course: Pt with PMHx HFrEF, newly diagnosed colon cancer with liver mets, surgery on dec 25, now on levophed and mechanical ventilation, patient is tolerating cpap trials but not responding, ct scan was ordered to check mental status Pt is on vanco cefepime, changed from meropenem due to fevers and wbc trending high Transfer Status unstable ODELL CINTRNO RESIDENT Dec 25, 2023 21:47 ABELINO HUFF Jan 02, 2024 14:04
[2023-12-25] MEDS: HYDROCORTISONE SOD SUCC 100 MG/2ML INJ VIAL IV SCH (21:52)
[2023-12-25 21:54] LABS: Large Platelets FEW; Platelet Estimate Increased
[2023-12-25] MEDS: VANCOMYCIN 1.5GM/300ML 300 ML IV ONE (22:52)
[2023-12-26] VITALS (110 sets, daily range): BP systolic 61–116; BP diastolic 51–76; PULSE 67–92; RESP 13–21; TEMP 98.4–99.9; O2SAT 88–98
[2023-12-26 01:48] LABS: Urine Bacteria FEW /hpf (None Seen); Urine Blood 3+ /uL (Negative); Urine Budding Yeast OCCASIONAL /hpf (None Seen); Urine Clarity Turbid (Clear); Urine Color Yellow (Yellow); Urine Hyaline Cast MOD /lpf (0 - 2); Urine Mucus FEW (None Seen); Urine Protein, UAD 1+ (Negative); Urine Specific Gravity 1.025 (1.001-1.035); Urine Urobilinogen Normal (Negative); Urine WBC 6 /hpf (0 - 5); Urine pH 5.5 (5.0-9.0)
[2023-12-26 03:49] LABS: Eosinophils # (auto) 0 10 ^3/uL (0-0.8); Lymphocytes # (auto) 0.7 10 ^3/uL (0.4-5.4); Monocytes # (auto) 0.5 10 ^3/uL (0-1.3); Neutrophils # (auto) 15.6 10 ^3/uL (1.6-8.6); Nucleated Red Blood Cells % 0.2 %
[2023-12-26 03:51] LABS: Basophils # (auto) 0.1 10 ^3/uL (0-0.2); Basophils % (auto) 0.8 % (0.0-2.0); Hematocrit 35.5 % (36.0-46.0); Hemoglobin 11.2 g/dL (12.2-16.2); Lymphocytes % (auto) 4.1 % (10.0-50.0); Mean Corpuscular Hemoglobin 25.1 pg (28.0-32.0); Mean Corpuscular Hgb Conc. 31.5 g/dL (32.0-36.0); Mean Corpuscular Volume 79.7 fL (80.0-100.0); Neutrophils % (auto) 92.1 % (37.0-80.0); Platelet Count (auto) 693 10^3/uL (140-450); Red Blood Cells 4.45 10^6/uL (4.0-5.20); White Blood Cell 16.9 10^3/uL (4.4-10.8)
[2023-12-26 03:56] LABS: Alanine Aminotransferase 40 U/L (7-40); Albumin 2.9 g/dL (3.2-4.8); Alkaline Phosphatase 573 U/L (46-116); Anion Gap 13 (5-15); Aspartate Aminotransferase 294 U/L (13-40); BUN/Creatinine Ratio 8.7 (10.0-20.0); Blood Urea Nitrogen 6 mg/dL (9-23); Calcium 8.2 mg/dL (8.7-10.4); Carbon Dioxide 15 mmol/L (20-31); Chloride 107 mmol/L (98-107); Glucose 148 mg/dL (74-106); Magnesium 1.8 mg/dL (1.6-2.6); Potassium 4.2 mmol/L (3.5-5.1); Sodium 135 mmol/L (136-145)
[2023-12-26 03:57] LABS: Bilirubin, Total 1.7 mg/dL (0.2-1.0); Total Protein 6.2 g/dL (5.7-8.2)
--- NOTE | 2023-12-26 04:00 | DVH ---
CHEST RADIOGRAPH Indication:INTUBATED POST SURGERY Technique: Single frontal view of the chest was obtained Comparison: XY CHEST PORTABLE on DOS: 12/25/23, XY CHEST XRAY 1 VIEW on DOS: 12/17/23, XY CHEST PORTAB LE on DOS: 12/25/23 FINDINGS: Lines and Tubes: Right central venous catheter and endotracheal tube in satisfactory position. Left chest wall AICD. Lungs: Low lung volumes. Pleura: No effusion. No pneumothorax. Cardiomediastinal contours: Cardiomegaly. Bones: Unremarkable IMPRESSION: Lines and tubes in satisfactory position. Low lung volumes.
[2023-12-26 04:05] LABS: Red Cell Distribution Width 20.8 % (11.8-14.3)
[2023-12-26 04:09] LABS: Lactic Acid w/Reflex 4.8 mmol/L (0.4-2.0)
[2023-12-26 04:50] LABS: Large Platelets FEW; Platelet Estimate Increa
[2023-12-26] MEDS: ALBUMIN 5% 250 ML IV ONE (05:46)
[2023-12-26 08:50] LABS: Base Excess -13.4 mmol/L (-2.0-3.0)
[2023-12-26] MEDS: PANTOPRAZOLE 40 MG/10 ML VIAL INJ IV SCH (08:51)
[2023-12-26] MEDS: MEROPENEM 1GM IVPB 50 ML IV SCH (08:51)
[2023-12-26] MEDS ORDERED: cefTRIAXone SOD 500 MG VL IV ONE (10:00)
--- NOTE | 2023-12-26 10:06 | DVHPN2 ---
Progress Note Date Seen: Dec 26, 2023 Medical Necessity Reason Pt with a Central, PICC or Fol: No Objective vital signs Vital Sign Date Time Temp Pulse Resp B/P (MAP) Pulse Ox O2 Delivery O2 Flow Rate FiO2 12/26/23 09:34 18 93 Mechanical Ventilator+ 45 45 12/26/23 09:34 84 12/26/23 09:30 98.8 99/65 (76) 209.8 104/62 (76) 12/25/23 13:14 10.0 Total Intake and Output 12/25/23 12/25/23 12/26/23 15:00 23:00 07:00 Intake Total 25 ml 2233.50 ml 1725.75 ml Output Total 125 ml 210 ml Balance 25 ml 2108.50 ml 1515.75 ml medications Current Medications Medications Dose Ordered Sig/Saige Route Start Time Stop Time Status Last Admin Dose Admin Sodium Chloride 10 ml Q8HR IV 12/17/23 22:00 12/26/23 07:02 10 ML Acetaminophen 325 mg Q4HP PRN PO 12/17/23 22:00 Acetaminophen/ Hydrocodone Bitart 1 tab Q4HP PRN PO 12/17/23 22:00 12/24/23 19:06 1 TAB Ondansetron HCl 4 mg Q4HP PRN IV 12/17/23 22:00 12/22/23 20:21 4 MG Pantoprazole Sodium 40 mg DAILY IV 12/19/23 10:00 12/26/23 07:25 40 MG Midazolam HCl 50 ml @ 1 mls/hr Q24H IV 12/25/23 12:30 12/26/23 08:55 8 MLS/HR Fentanyl Citrate 250 ml @ 2.5 mls/hr Q24H IV 12/25/23 12:30 12/26/23 08:56 10 MLS/HR Norepinephrine Bitartrate 250 ml @ 3.75 mls/hr Q24H IV 12/25/23 12:45 12/26/23 09:02 45 MLS/HR Dextrose/Sodium Chloride 1,000 ml @ 75 mls/hr [id number] IV 12/25/23 16:00 12/26/23 04:58 75 MLS/HR Hydromorphone HCl 0.25 mg Q4HPRN PRN IV 12/25/23 16:00 Nitroglycerin 0.4 mg Q5MINP PRN SL 12/25/23 16:00 Propofol 100 ml @ 2.253 mls/ hr Q24H IV 12/25/23 16:15 12/25/23 16:45 2.253 MLS/HR Vasopressin 20 units/Sodium Chloride 100 ml @ 9 mls/hr Q11H7M IV 12/25/23 17:15 12/25/23 17:39 9 MLS/HR Phenylephrine HCl 250 ml @ 30 mls/hr Q8H20M IV 12/25/23 17:15 12/26/23 00:42 48.75 MLS/HR Dopamine HCl/ Dextrose 250 ml @ 14.081 mls/ hr [id number] IV 12/25/23 18:30 Epinephrine HCl 250 ml @ 7.5 mls/hr Q24H IV 12/25/23 18:30 Meropenem 50 ml @ 17 mls/hr Q8HR IV 12/26/23 10:00 12/26/23 08:51 17 MLS/HR Vancomycin HCl 0 ml @ 0 mls/hr UD IV 12/25/23 20:45 Hydrocortisone Sodium Succinate 100 mg Q12HR IV 12/25/23 22:00 12/26/23 07:25 100 MG Pantoprazole Sodium 40 mg DAILY IV 12/26/23 10:00 laboratory and microbiology Laboratory Tests 12/26/23 03:02 Test 12/26/23 03:02 Range/Units Serum Glucose 148 H 74-106 mg/dL Microbiology Date/Time Source Procedure Growth Status 12/18/23 13:03 Stool Stool Culture - Final Complete 12/18/23 13:03 Stool Shiga Toxin I & II - Final Complete 12/18/23 12:29 Nose MRSA Screen - Final Complete 12/18/23 11:03 Voided Urine Urine Culture - Final Complete 12/17/23 18:57 Blood Blood Culture - Final NO GROWTH AFTER 5 DAYS OF INCUBATION. Complete Problem List/Assessment/Plan Problem List/Assessment/Plan INTUBATED HEMODYNAMICALLY LABILE ON VASOPRESSOR SUPPORT H/H STABLE NO ACTIVE BLEED ABD SOFT DISTENDED NO BM LACTATE UP TRENDING DOWN URINE OUTPUT LOW CONTINUE CLOSE OBSERVATION SUPPORTIVE CARE Plan discussed with: Other My Orders My Orders Orders - NEGIN BUCKLEY MD Procedure Category Date Status Time D5w/Sod Chl 0.45% PHA 12/25/23 In Process (D5w 1/2ns) 16:00 Hydromorphone PHA 12/25/23 In Process Injection (Dilaudid 16:00 Admit ADMIT 12/25/23 Transmitted 15:58 Oxygen By Nasal RT 12/25/23 Transmitted Cannula 15:58 Nitroglycerin PHA 12/25/23 In Process Sublingual (Ntrostat 16:00 Transfer Orders XFER 12/25/23 Transmitted 15:58 Pharmacy [facility] 12/25/23 In Process Clarification: 16:04 Abdominal Binder [facility] 12/25/23 In Process 16:28 Ng To [facility] 12/26/23 In Process 01:08 Place Og Tube ORDERS 12/26/23 Transmitted 01:08 Dietary Evaluation Review Comments: 1) Advance pt diet when medically feasible to a Cardiac diet 2) Continue current plan of care Expected Outcomes/Goals: 1) F/U in 3-5 days NEGIN BUCKLEY MD Dec 26, 2023 10:06
--- NOTE | 2023-12-26 11:43 | DVHINCON2 ---
Date of service: Dec 26, [address] Parker Reason for Consultation Decreased urine output History of Present Illness Patient is a 63-year-old female with past medical history significant for CAD, CHF, High Lipids, HTN, KS, and UTI'S is admitted for abdominal pain, during her hospital course patient found to have descending colon mass due to colon adenocarcinoma of the colon status post left colectomy 12/24. The patient currently intubated in the ICU on the ventilator patient noticed to have decreased urine output and worsening metabolic acidosis nephrology is consulted for acute kidney injury Past Medical History PAST MEDICAL HISTORY: CAD, CHF, High Lipids, HTN, KS, UTI'S Past Surgical History Left colectomy 12/24 PTCA Allergies: Coded Allergies: Lisinopril (Verified Allergy, Unknown, 12/29/17) Morphine (Verified Allergy, Unknown, 09/21/17) Home Meds Reported Medications Empagliflozin (Jardiance) 10 Mg Tab, 10 MG PO DAILY, TAB 12/19/23 Sacubitril-Valsartan (Entresto 24-26 mg) 1 Tab Tab, 1 TAB PO BID, TAB 12/18/23 Temazepam (Restoril) 15 Mg Cp, 1 CAP PO QPM PRN for FOR INSOMNIA, #30 CAP 1 Refill 09/22/17 Metoprolol Succinate (Toprol Xl) 25 Mg Tab, 25 MG PO DAILY, TAB 09/21/17 Atorvastatin Calcium (Lipitor) 80 Mg Tab, 80 MG PO HS, TAB 09/21/17 Aspirin (Aspir-Low) 81 Mg Tab, 81 MG PO DAILY for 30 Days, MG 09/21/17 Current Medications Current Medications Medications (Trade) Dose Ordered Sig/Saige Route PRN Reason Start Time Stop Time Status Last Admin Midazolam HCl 50 ml @ 1 mls/hr Q24H IV 12/25/23 12:30 12/26/23 08:55 Fentanyl Citrate 250 ml @ 2.5 mls/hr Q24H IV 12/25/23 12:30 12/26/23 08:56 Norepinephrine Bitartrate 250 ml @ 3.75 mls/hr Q24H IV 12/25/23 12:45 12/26/23 09:02 Dextrose/Sodium Chloride 1,000 ml @ 75 mls/hr [id number] IV 12/25/23 16:00 12/26/23 04:58 Hydromorphone HCl (Dilaudid Injection) 0.25 mg Q4HPRN PRN IV SEVERE PAIN (7-10 PAIN SCALE) 12/25/23 16:00 Nitroglycerin (Ntrostat Sublingual) 0.4 mg Q5MINP PRN SL FOR CHEST PAIN 12/25/23 16:00 Propofol 100 ml @ 2.253 mls/ hr Q24H IV 12/25/23 16:15 12/25/23 16:45 Vasopressin 20 units/Sodium Chloride 100 ml @ 9 mls/hr Q11H7M IV 12/25/23 17:15 12/25/23 17:39 Phenylephrine HCl 250 ml @ 30 mls/hr Q8H20M IV 12/25/23 17:15 12/26/23 00:42 Ceftriaxone Sodium 50 ml @ 100 mls/hr DAILY IV 12/25/23 17:30 12/25/23 20:46 DC 12/25/23 17:30 Dopamine HCl/ Dextrose 250 ml @ 14.081 mls/ hr [id number] IV 12/25/23 18:30 Epinephrine HCl 250 ml @ 7.5 mls/hr Q24H IV 12/25/23 18:30 Meropenem 50 ml @ 17 mls/hr Q8HR IV 12/26/23 10:00 12/26/23 08:51 Vancomycin HCl 0 ml @ 0 mls/hr UD IV 12/25/23 20:45 Hydrocortisone Sodium Succinate (Solu-CORTEF INJECTION) 100 mg Q12HR IV 12/25/23 22:00 12/26/23 07:25 Pantoprazole Sodium (Protonix) 40 mg DAILY IV 12/26/23 10:00 Vancomycin HCl 200 ml @ 200 mls/hr Q12HR IV 12/26/23 10:30 Family History: Cardiovascular disease G8 MOTHER Cerebrovascular accident (CVA) G8 MOTHER Diabetes mellitus G8 MOTHER Thyroid disease G8 MOTHER Review of Systems Can not be obtained H&P Exam Vital Signs/I&O Vital Sign Date Time Temp Pulse Resp B/P (MAP) Pulse Ox O2 Delivery O2 Flow Rate FiO2 12/26/23 10:45 80 18 97/62 (74) 93 45 12/26/23 09:34 Mechanical Ventilator+ 12/26/23 09:30 98.8 209.8 12/25/23 13:14 10.0 Intake and Output 12/25/23 12/26/23 19:00 07:00 Intake Total 542.00 ml 3442.25 ml Output Total 125 ml 210 ml Balance 417.00 ml 3232.25 ml Intake Oral 0 ml IV Total 542.00 ml 3442.25 ml Output Urine Total 125 ml 210 ml Physical Exam Patient intubated on ventilator sedated Lungs clear to auscultation bilaterally Cardiac exam regular rate and rhythm GI bowel sounds decreased Azar catheter Extremity 1+ edema Neuro patient is sedated Labs/Diagnostic Data Labs/Diagnostic Data Laboratory Tests Test 12/26/23 08:06 12/26/23 06:33 12/26/23 03:02 12/26/23 01:30 Range/Units Blood Gas Specimen Type Arterial Blood Gas Sample Site Arterial line Blood Gas Patient Temperature 37.0 Arterial Blood Date Drawn [id number] Arterial Blood pH 7.202 *L 7.350-7.450 Arterial Blood Partial Pressure CO2 35.4 32.0-45.0 mmHg Arterial Blood Partial Pressure O2 80.0 L 83.0-108.0 mmHg Arterial Blood HCO3 13.6 L 21.0-28.0 mmol/L Arterial Blood Oxygen Saturation 92.9 L 94.0-98.0 % Arterial Blood Base Excess -13.4 L -2.0-3.0 mmol/L Arterial Blood Oxyhemoglobin 92.1 L 94.0-98.0 % Arterial Blood Carboxyhemoglobin 0.6 0.5-1.5 % Arterial Blood Methemoglobin 0.3 0.0-1.5 % Aqulies Test N/a Blood Gas Total Hemoglobin 10.40 L 12.0-16.0 g/dL Blood Gas Set Respiration Rate 18.0 Blood Gas Modality Vent - ac Blood Gas Spontaneous Rate 18 FiO2 % 45.0 Blood Gas Tidal Volume 450.0 Blood Gas PEEP or CPAP 5.0 Specimen Drawn By Alexei bell Blood Gas Critical Value Read Back Yes Blood Gas Notified Whom Dr. nair Blood Gas Notified Time [id number] Blood Gas Notified By Alexei bell Lactic Acid Level 3.8 *H 4.8 *H 0.4-2.0 mmol/L White Blood Count 16.9 H 4.4-10.8 10^3/uL Red Blood Count 4.45 4.0-5.20 10^6/uL Hemoglobin 11.2 L 12.2-16.2 g/dL Hematocrit 35.5 L 36.0-46.0 % Mean Corpuscular Volume 79.7 L 80.0-100.0 fL Mean Corpuscular Hemoglobin 25.1 L 28.0-32.0 pg Mean Corpuscular Hemoglobin Concent 31.5 L 32.0-36.0 g/dL Red Cell Distribution Width 20.8 H 11.8-14.3 % Platelet Count 693 H 140-450 10^3/uL Mean Platelet Volume 8.0 6.9-10.8 fL Neutrophils (%) (Auto) 92.1 H 37.0-80.0 % Lymphocytes (%) (Auto) 4.1 L 10.0-50.0 % Monocytes (%) (Auto) 3.0 0.0-12.0 % Eosinophils (%) (Auto) 0.0 0.0-7.0 % Basophils (%) (Auto) 0.8 0.0-2.0 % Neutrophils # (Auto) 15.6 H 1.6-8.6 10 ^3/uL Lymphocytes # (Auto) 0.7 0.4-5.4 10 ^3/uL Monocytes # (Auto) 0.5 0-1.3 10 ^3/uL Eosinophils # (Auto) 0 0-0.8 10 ^3/uL Basophils # (Auto) 0.1 0-0.2 10 ^3/uL Nucleated Red Blood Cells 0.2 % Platelet Estimate Increa Large Platelets Few Sodium Level 135 L 136-145 mmol/L Potassium Level 4.2 3.5-5.1 mmol/L Chloride Level 107 98-107 mmol/L Carbon Dioxide Level 15 L 20-31 mmol/L Anion Gap 13 5-15 Blood Urea Nitrogen 6 L 9-23 mg/dL Creatinine 0.69 0.550-1.02 mg/dL Glomerular Filtration Rate Calc 99 >90 mL/min BUN/Creatinine Ratio 8.7 L 10.0-20.0 Serum Glucose 148 H 74-106 mg/dL Calcium Level 8.2 L 8.7-10.4 mg/dL Magnesium Level 1.8 1.6-2.6 mg/dL Total Bilirubin 1.7 H 0.2-1.0 mg/dL Aspartate Amino Transferase (AST) 294 H 13-40 U/L Alanine Aminotransferase (ALT) 40 7-40 U/L Alkaline Phosphatase 573 H 46-116 U/L Total Protein 6.2 5.7-8.2 g/dL Albumin 2.9 L 3.2-4.8 g/dL Urine Color Yellow Yellow Urine Clarity Turbid H Clear Urine pH 5.5 5.0-9.0 Urine Specific Stryker 1.025 1.001-1.035 Urine Protein 1+ H Negative Urine Ketones Trace Negative Urine Blood 3+ H Negative /uL Urine Nitrite Negative Negative Urine Bilirubin Negative Negative Urine Urobilinogen Normal Negative mg/dL Urine Leukocyte Esterase Negative Negative /uL Urine RBC 87 0 - 4 /hpf Urine WBC 6 0 - 5 /hpf Urine Squamous Epithelial Cells None seen <5 /hpf Urine Bacteria Few H None Seen /hpf Urine Hyaline Casts Mod 0 - 2 /lpf Urine Granular Casts Few 0 /lpf Urine Mucus Few None Seen Urine Yeast (Budding) Occasional None Seen /hpf Urine Glucose Normal Normal mg/dL Test 12/25/23 20:00 12/25/23 17:55 12/25/23 13:40 12/25/23 07:28 Range/Units White Blood Count 20.3 #H 9.1 4.4-10.8 10^3/uL Red Blood Count 4.38 3.71 L 4.0-5.20 10^6/uL Hemoglobin 11.1 #L 9.1 L 12.2-16.2 g/dL Hematocrit 34.3 #L 28.0 #L 36.0-46.0 % Mean Corpuscular Volume 78.4 L 75.5 L 80.0-100.0 fL Mean Corpuscular Hemoglobin 25.4 L 24.6 L 28.0-32.0 pg Mean Corpuscular Hemoglobin Concent 32.4 32.6 32.0-36.0 g/dL Red Cell Distribution Width 19.8 H 20.0 H 11.8-14.3 % Platelet Count 711 H 426 140-450 10^3/uL Mean Platelet Volume 7.6 7.7 6.9-10.8 fL Neutrophils (%) (Auto) 81.2 H 80.2 H 37.0-80.0 % Lymphocytes (%) (Auto) 11.1 9.3 L 10.0-50.0 % Monocytes (%) (Auto) 6.8 9.5 0.0-12.0 % Eosinophils (%) (Auto) 0.2 0.4 0.0-7.0 % Basophils (%) (Auto) 0.7 0.6 0.0-2.0 % Neutrophils # (Auto) 16.5 H 7.3 1.6-8.6 10 ^3/uL Lymphocytes # (Auto) 2.2 0.8 0.4-5.4 10 ^3/uL Monocytes # (Auto) 1.4 H 0.9 0-1.3 10 ^3/uL Eosinophils # (Auto) 0 0 0-0.8 10 ^3/uL Basophils # (Auto) 0.1 0.1 0-0.2 10 ^3/uL Nucleated Red Blood Cells 0.2 0.1 % Platelet Estimate Increased Large Platelets Few Prothrombin Time 17.8 H 17.7 H 9.3-11.8 sec Prothrombin Time INR 1.75 H 1.74 H 0.9-1.15 Activated Partial Thromboplast Time 34.0 39.4 H 24.5-34.5 SEC Sodium Level 134 L 135 L 136-145 mmol/L Potassium Level 3.8 3.4 L 3.5-5.1 mmol/L Chloride Level 106 104 98-107 mmol/L Carbon Dioxide Level 18 L 22 20-31 mmol/L Anion Gap 10 9 5-15 Blood Urea Nitrogen 6 L < 5 L 9-23 mg/dL Creatinine 0.73 # 0.53 L 0.550-1.02 mg/dL Glomerular Filtration Rate Calc 94 105 >90 mL/min BUN/Creatinine Ratio 8.2 L 9.4 L 10.0-20.0 Serum Glucose 129 H 71 L 74-106 mg/dL Calcium Level 8.4 L 8.1 L 8.7-10.4 mg/dL Total Bilirubin 1.7 H 0.2-1.0 mg/dL Aspartate Amino Transferase (AST) 281 H 13-40 U/L Alanine Aminotransferase (ALT) 43 H 7-40 U/L Alkaline Phosphatase 594 H 46-116 U/L Total Protein 6.2 5.7-8.2 g/dL Albumin 3.1 L 3.2-4.8 g/dL Blood Gas Specimen Type Arterial Arterial Blood Gas Sample Site Arterial line Arterial line Blood Gas Patient Temperature 37.0 37.0 Arterial Blood Date Drawn [id number] Arterial Blood pH 7.309 L 7.136 *L 7.350-7.450 Arterial Blood Partial Pressure CO2 32.3 60.7 *H 32.0-45.0 mmHg Arterial Blood Partial Pressure O2 128.1 H 111.1 H 83.0-108.0 mmHg Arterial Blood HCO3 15.9 L 20.0 L 21.0-28.0 mmol/L Arterial Blood Oxygen Saturation 98.1 H 96.5 94.0-98.0 % Arterial Blood Base Excess -9.3 L -9.4 L -2.0-3.0 mmol/L Arterial Blood Oxyhemoglobin 97.4 95.1 94.0-98.0 % Arterial Blood Carboxyhemoglobin 0.3 L 1.2 0.5-1.5 % Arterial Blood Methemoglobin 0.4 0.3 0.0-1.5 % Aquiles Test N/a N/a Blood Gas Total Hemoglobin 12.10 11.80 L 12.0-16.0 g/dL Blood Gas Set Respiration Rate 18.0 10.0 Blood Gas Modality Vent - ac Vent - simv FiO2 % 60.0 60.0 Blood Gas Tidal Volume 450.0 400.0 Blood Gas PEEP or CPAP 5.0 5.0 Blood Gas Spontaneous Rate 10 Blood Gas Pressure Support 12 Blood Gas Critical Value Read Back Yes Blood Gas Notified Whom Blood Gas Notified Time [id number] Blood Gas Notified By Test 12/24/23 05:36 12/23/23 06:00 12/22/23 08:03 12/21/23 07:10 Range/Units White Blood Count 8.1 8.3 8.2 8.5 4.4-10.8 10^3/uL Red Blood Count 3.34 L 3.47 L 3.61 L 3.47 L 4.0-5.20 10^6/uL Hemoglobin 8.3 L 8.3 L 8.6 L 8.5 L 12.2-16.2 g/dL Hematocrit 25.1 L 26.3 L 27.2 L 26.2 #L 36.0-46.0 % Mean Corpuscular Volume 75.3 L 75.8 L 75.4 L 75.4 L 80.0-100.0 fL Mean Corpuscular Hemoglobin 24.9 L 24.0 L 23.9 L 24.5 L 28.0-32.0 pg Mean Corpuscular Hemoglobin Concent 33.1 31.6 L 31.7 L 32.5 32.0-36.0 g/dL Red Cell Distribution Width 19.5 H 19.6 H 19.1 H 19.3 H 11.8-14.3 % Platelet Count 378 390 417 389 140-450 10^3/uL Mean Platelet Volume 7.8 7.8 7.6 7.7 6.9-10.8 fL Neutrophils (%) (Auto) 74.3 77.3 79.7 76.7 37.0-80.0 % Lymphocytes (%) (Auto) 12.4 10.7 9.1 L 12.6 10.0-50.0 % Monocytes (%) (Auto) 11.5 10.4 9.6 9.6 0.0-12.0 % Eosinophils (%) (Auto) 1.2 0.9 0.9 0.5 0.0-7.0 % Basophils (%) (Auto) 0.6 0.7 0.7 0.6 0.0-2.0 % Neutrophils # (Auto) 6.1 6.4 6.5 6.5 1.6-8.6 10 ^3/uL Lymphocytes # (Auto) 1.0 0.9 0.7 1.1 0.4-5.4 10 ^3/uL Monocytes # (Auto) 0.9 0.9 0.8 0.8 0-1.3 10 ^3/uL Eosinophils # (Auto) 0.1 0.1 0.1 0 0-0.8 10 ^3/uL Basophils # (Auto) 0 0.1 0.1 0.1 0-0.2 10 ^3/uL Nucleated Red Blood Cells 0.1 0.1 0.1 0.0 % Sodium Level 136 138 137 137 136-145 mmol/L Potassium Level 3.7 3.9 3.5 3.8 3.5-5.1 mmol/L Chloride Level 106 108 H 109 H 109 H 98-107 mmol/L Carbon Dioxide Level 22 19 L 19 L 19 L 20-31 mmol/L Anion Gap 8 11 9 9 5-15 Blood Urea Nitrogen 5 L < 5 L < 5 L < 5 L 9-23 mg/dL Creatinine 0.55 0.52 L 0.56 0.63 0.550-1.02 mg/dL Glomerular Filtration Rate Calc 104 106 104 101 >90 mL/min BUN/Creatinine Ratio 9.1 L 9.6 L 8.9 L 7.9 L 10.0-20.0 Serum Glucose 83 51 L 82 77 74-106 mg/dL Calcium Level 8.3 L 8.3 L 8.4 L 8.5 L 8.7-10.4 mg/dL Total Bilirubin 1.5 H 1.5 H 0.2-1.0 mg/dL Aspartate Amino Transferase (AST) 373 H 389 H 13-40 U/L Alanine Aminotransferase (ALT) 56 H 54 H 7-40 U/L Alkaline Phosphatase 732 H 756 H 46-116 U/L Total Protein 6.4 6.4 5.7-8.2 g/dL Albumin 3.1 L 3.1 L 3.2-4.8 g/dL Magnesium Level 2.2 1.6-2.6 mg/dL Test 12/20/23 20:06 12/20/23 17:00 12/20/23 14:40 12/20/23 06:32 Range/Units POC Glucose 101 104 70-106 mg/dl Hemoglobin 9.4 #L 7.9 #L 12.2-16.2 g/dL Hematocrit 31.4 #L 24.8 #L 36.0-46.0 % White Blood Count 7.9 4.4-10.8 10^3/uL Red Blood Count 3.21 L 4.0-5.20 10^6/uL Mean Corpuscular Volume 77.3 L 80.0-100.0 fL Mean Corpuscular Hemoglobin 24.7 L 28.0-32.0 pg Mean Corpuscular Hemoglobin Concent 31.9 L 32.0-36.0 g/dL Red Cell Distribution Width 19.2 H 11.8-14.3 % Platelet Count 337 140-450 10^3/uL Mean Platelet Volume 7.7 6.9-10.8 fL Neutrophils (%) (Auto) 76.2 37.0-80.0 % Lymphocytes (%) (Auto) 11.9 10.0-50.0 % Monocytes (%) (Auto) 9.8 0.0-12.0 % Eosinophils (%) (Auto) 0.9 0.0-7.0 % Basophils (%) (Auto) 1.2 0.0-2.0 % Neutrophils # (Auto) 6.0 1.6-8.6 10 ^3/uL Lymphocytes # (Auto) 0.9 0.4-5.4 10 ^3/uL Monocytes # (Auto) 0.8 0-1.3 10 ^3/uL Eosinophils # (Auto) 0.1 0-0.8 10 ^3/uL Basophils # (Auto) 0.1 0-0.2 10 ^3/uL Nucleated Red Blood Cells 0.1 % Sodium Level 138 136-145 mmol/L Potassium Level 3.8 3.5-5.1 mmol/L Chloride Level 109 H 98-107 mmol/L Carbon Dioxide Level 19 L 20-31 mmol/L Anion Gap 10 5-15 Blood Urea Nitrogen 5 L 9-23 mg/dL Creatinine 0.66 0.550-1.02 mg/dL Glomerular Filtration Rate Calc 100 >90 mL/min BUN/Creatinine Ratio 7.6 L 10.0-20.0 Serum Glucose 64 L 74-106 mg/dL Calcium Level 8.1 L 8.7-10.4 mg/dL Test 12/19/23 16:03 12/19/23 10:40 12/19/23 07:12 12/18/23 13:03 Range/Units Troponin I High Sensitivity 42 *H 48 *H </=34 ng/L CA 19-9 Antigen 1546 H 0-35 U/mL White Blood Count 7.3 4.4-10.8 10^3/uL Red Blood Count 3.70 L 4.0-5.20 10^6/uL Hemoglobin 9.3 L 12.2-16.2 g/dL Hematocrit 28.8 L 36.0-46.0 % Mean Corpuscular Volume 77.9 L 80.0-100.0 fL Mean Corpuscular Hemoglobin 25.0 L 28.0-32.0 pg Mean Corpuscular Hemoglobin Concent 32.1 32.0-36.0 g/dL Red Cell Distribution Width 19.0 H 11.8-14.3 % Platelet Count 375 140-450 10^3/uL Mean Platelet Volume 7.9 6.9-10.8 fL Neutrophils (%) (Auto) 78.5 37.0-80.0 % Lymphocytes (%) (Auto) 10.6 10.0-50.0 % Monocytes (%) (Auto) 9.9 0.0-12.0 % Eosinophils (%) (Auto) 0.5 0.0-7.0 % Basophils (%) (Auto) 0.5 0.0-2.0 % Neutrophils # (Auto) 5.7 1.6-8.6 10 ^3/uL Lymphocytes # (Auto) 0.8 0.4-5.4 10 ^3/uL Monocytes # (Auto) 0.7 0-1.3 10 ^3/uL Eosinophils # (Auto) 0 0-0.8 10 ^3/uL Basophils # (Auto) 0 0-0.2 10 ^3/uL Nucleated Red Blood Cells 0.1 % Sodium Level 137 136-145 mmol/L Potassium Level 4.0 3.5-5.1 mmol/L Chloride Level 107 98-107 mmol/L Carbon Dioxide Level 18 L 20-31 mmol/L Anion Gap 12 5-15 Blood Urea Nitrogen 10 9-23 mg/dL Creatinine 0.70 0.550-1.02 mg/dL Glomerular Filtration Rate Calc 98 >90 mL/min BUN/Creatinine Ratio 14.3 10.0-20.0 Serum Glucose 80 74-106 mg/dL Calcium Level 8.3 L 8.7-10.4 mg/dL Stool Occult Blood Positive Negative Stool Occult Blood Sample #3 Negative Test 12/18/23 12:28 12/18/23 11:03 12/18/23 08:21 12/18/23 08:02 Range/Units SARS-CoV-2 Antigen (Rapid) Negative NEGATIVE Urine Color Light-yellow Yellow Urine Clarity Turbid H Clear Urine pH 6.0 5.0-9.0 Urine Specific Stryker 1.011 1.001-1.035 Urine Protein Trace H Negative Urine Ketones Negative Negative Urine Blood 1+ H Negative /uL Urine Nitrite Negative Negative Urine Bilirubin Negative Negative Urine Urobilinogen Normal Negative mg/dL Urine Leukocyte Esterase 3+ Negative /uL Urine RBC 2 0 - 4 /hpf Urine WBC 10 0 - 5 /hpf Urine Squamous Epithelial Cells Few <5 /hpf Urine Bacteria None seen None Seen /hpf Urine Hyaline Casts Few 0 - 2 /lpf Urine Glucose Normal Normal mg/dL White Blood Count 9.1 4.4-10.8 10^3/uL Red Blood Count 4.02 4.0-5.20 10^6/uL Hemoglobin 9.8 L 12.2-16.2 g/dL Hematocrit 30.3 L 36.0-46.0 % Mean Corpuscular Volume 75.3 L 80.0-100.0 fL Mean Corpuscular Hemoglobin 24.4 L 28.0-32.0 pg Mean Corpuscular Hemoglobin Concent 32.4 32.0-36.0 g/dL Red Cell Distribution Width 19.0 H 11.8-14.3 % Platelet Count 431 140-450 10^3/uL Mean Platelet Volume 8.0 6.9-10.8 fL Neutrophils (%) (Auto) 80.1 H 37.0-80.0 % Lymphocytes (%) (Auto) 10.2 10.0-50.0 % Monocytes (%) (Auto) 8.2 0.0-12.0 % Eosinophils (%) (Auto) 0.7 0.0-7.0 % Basophils (%) (Auto) 0.8 0.0-2.0 % Neutrophils # (Auto) 7.3 1.6-8.6 10 ^3/uL Lymphocytes # (Auto) 0.9 0.4-5.4 10 ^3/uL Monocytes # (Auto) 0.7 0-1.3 10 ^3/uL Eosinophils # (Auto) 0.1 0-0.8 10 ^3/uL Basophils # (Auto) 0.1 0-0.2 10 ^3/uL Nucleated Red Blood Cells 0.0 % Erythrocyte Sedimentation Rate 75 H 0-20 mm/hr Prothrombin Time 17.4 H 9.3-11.8 sec Prothrombin Time INR 1.71 H 0.9-1.15 Activated Partial Thromboplast Time 38.2 H 24.5-34.5 SEC Sodium Level 133 L 136-145 mmol/L Potassium Level 3.3 L 3.5-5.1 mmol/L Chloride Level 103 98-107 mmol/L Carbon Dioxide Level 19 L 20-31 mmol/L Anion Gap 11 5-15 Blood Urea Nitrogen 11 9-23 mg/dL Creatinine 0.78 0.550-1.02 mg/dL Glomerular Filtration Rate Calc 86 >90 mL/min BUN/Creatinine Ratio 14.1 10.0-20.0 Serum Glucose 83 74-106 mg/dL Hemoglobin A1c 5.1 <5.7 % A1C Calcium Level 8.4 L 8.7-10.4 mg/dL Magnesium Level 2.1 1.6-2.6 mg/dL Iron Level 25 L 50-170 ug/dL Total Iron Binding Capacity 323 250-425 ug/dL Percent Iron Saturation 7.7 L 15-50 % Total Bilirubin 1.4 H 0.2-1.0 mg/dL Aspartate Amino Transferase (AST) 412 H 13-40 U/L Alanine Aminotransferase (ALT) 55 H 7-40 U/L Alkaline Phosphatase 768 H 46-116 U/L Creatine Kinase 409 H 34-145 U/L C-Reactive Protein High Sensitivity 10.15 H <1.0 mg/dL B-Type Natriuretic Peptide 128.60 0-100 pg/mL Total Protein 6.7 5.7-8.2 g/dL Albumin 3.3 3.2-4.8 g/dL Tumor Marker Alpha Fetoprotein 2.0 0.0-9.2 ng/mL Carcinoembryonic Antigen 326.14 <=5.0 ng/mL Vitamin B12 Level 2343 H 211-911 pg/mL Vitamin D 25-Hydroxy 44.3 30.0-100 ng/mL Folic Acid 6.56 >5.38 ng/mL Thyroid Stimulating Hormone (TSH) 2.84 0.55-4.78 uIU/mL Plasma/Serum Blood Alcohol < 3.0 <10 mg/dL Hepatitis A IgM Antibody Negative Hepatitis A Antibody Total Positive H Negative Hepatitis B Surface Antigen Negative Negative Hepatitis B Surface Antibody Negative Negative Hepatitis B Core Total Antibody Negative Negative Hepatitis B Core IgM Antibody Negative Hepatitis C Antibody Negative Negative Urine Opiates Screen Neg NEGATIVE Urine Fentanyl Screen Neg NEGATIVE Urine Barbiturates Screen Neg NEGATIVE Urine Phencyclidine Screen Neg NEGATIVE Urine Amphetamines Screen Neg NEGATIVE Urine Benzodiazepines Screen Neg NEGATIVE Urine Cocaine Screen Neg NEGATIVE Urine Cannabinoids Screen Neg NEGATIVE Test 12/17/23 21:09 12/17/23 18:51 12/17/23 15:43 Range/Units Lactic Acid Level 1.8 2.2 *H 0.4-2.0 mmol/L White Blood Count 12.1 H 4.4-10.8 10^3/uL Red Blood Count 4.23 4.0-5.20 10^6/uL Hemoglobin 10.5 L 12.2-16.2 g/dL Hematocrit 33.2 L 36.0-46.0 % Mean Corpuscular Volume 78.4 L 80.0-100.0 fL Mean Corpuscular Hemoglobin 24.8 L 28.0-32.0 pg Mean Corpuscular Hemoglobin Concent 31.6 L 32.0-36.0 g/dL Red Cell Distribution Width 18.9 H 11.8-14.3 % Platelet Count 477 H 140-450 10^3/uL Mean Platelet Volume 8.2 6.9-10.8 fL Neutrophils (%) (Auto) 80.2 H 37.0-80.0 % Lymphocytes (%) (Auto) 9.4 L 10.0-50.0 % Monocytes (%) (Auto) 9.2 0.0-12.0 % Eosinophils (%) (Auto) 0.3 0.0-7.0 % Basophils (%) (Auto) 0.9 0.0-2.0 % Neutrophils # (Auto) 9.7 H 1.6-8.6 10 ^3/uL Lymphocytes # (Auto) 1.1 0.4-5.4 10 ^3/uL Monocytes # (Auto) 1.1 0-1.3 10 ^3/uL Eosinophils # (Auto) 0 0-0.8 10 ^3/uL Basophils # (Auto) 0.1 0-0.2 10 ^3/uL Nucleated Red Blood Cells 0.0 % Sodium Level 134 L 136-145 mmol/L Potassium Level 3.9 3.5-5.1 mmol/L Chloride Level 102 98-107 mmol/L Carbon Dioxide Level 21 20-31 mmol/L Anion Gap 11 5-15 Blood Urea Nitrogen 11 9-23 mg/dL Creatinine 0.85 0.550-1.02 mg/dL Glomerular Filtration Rate Calc 78 >90 mL/min BUN/Creatinine Ratio 12.9 10.0-20.0 Serum Glucose 93 74-106 mg/dL Calcium Level 8.8 8.7-10.4 mg/dL Total Bilirubin 1.5 H 0.2-1.0 mg/dL Aspartate Amino Transferase (AST) 479 H 13-40 U/L Alanine Aminotransferase (ALT) 62 H 7-40 U/L Alkaline Phosphatase 832 H 46-116 U/L Total Protein 7.5 5.7-8.2 g/dL Albumin 3.7 3.2-4.8 g/dL Microbiology Date/Time Source Procedure Growth Status 12/18/23 13:03 Stool Stool Culture - Final Complete 12/18/23 13:03 Stool Shiga Toxin I & II - Final Complete 12/18/23 12:29 Nose MRSA Screen - Final Complete 12/18/23 11:03 Voided Urine Urine Culture - Final Complete 12/17/23 18:57 Blood Blood Culture - Final NO GROWTH AFTER 5 DAYS OF INCUBATION. 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 I discussed my plan of care with the patient's and the primary nurse at the bedside I would like to thank Dr. Serra for the consult, will follow Plan discussed with: Other (Nurse) SHAMEKA GONZALEZ MD Dec 26, 2023 11:43
[2023-12-26] MEDS: FUROSEMIDE 40 MG/4 ML VIAL IV SCH (11:45)
[2023-12-26] MEDS: VANCOMYCIN 1GM/250ML KIT 200 ML IV SCH (12:10)
[2023-12-26 12:38] LABS: Protein, Urine 126.3 mg/dL (1-14)
[2023-12-26 12:41] LABS: Creatinine, Urine 61.23 mg/dL (30.0-125.0); Creatinine, Urine 64.14 mg/dL (30.0-125.0); Urine Protein/Creatinine Ratio 1.97
--- NOTE | 2023-12-26 12:54 | DVH ---
CHEST RADIOGRAPH Indication:after advance tube Technique: Single frontal view of the chest was obtained Comparison: XY CHEST PORTABLE on DOS: 12/26/23, XY CHEST PORTABLE on DOS: 12/25/23, XY CHEST XRAY 1 VIE W on DOS: 12/17/23, XY CHEST PORTABLE on DOS: 12/26/23 FINDINGS: Lines and Tubes: Right central venous catheter and endotracheal tube in satisfactory position. Left chest wall AICD. Lungs: Low lung volumes. Pleura: No effusion. No pneumothorax. Cardiomediastinal contours: Cardiomegaly. Bones: Unremarkable IMPRESSION: Lines and tubes in satisfactory position. Low lung volumes.
[2023-12-26] MEDS: SOD CHL IV SCH (13:06)
[2023-12-26] MEDS: D5 IV SCH (13:06)
[2023-12-26] MEDS: SODIUM BICARB IV SCH (13:06)
[2023-12-26 13:19] LABS: Magnesium 1.8 mg/dL (1.6-2.6)
[2023-12-26 13:21] LABS: Phosphorus 3.5 mg/dL (2.4-5.1)
--- NOTE | 2023-12-26 17:40 | DVHPNRES ---
Progress Note Date Seen: Dec 26, 2023 Resident Creating Document: ABELINO HUFF RESIDENT Medical Necessity Reason Pt with a Central, PICC or Fol: No Subjective Review of Systems A 63-year-old female patient with PMHx of systolic heart failure status post Medtronic ICD placement -last EF 35% in September2023, CAD status post 4 RYAN in January 2018 , dyslipidemia, recurrent UTIs and pyelonephritis for the past 4 months, hypertension and internal hemorrhoids presented to the ER with a chief complaint of suprapubic abdominal pain and constipation. Patient recently visited [facility] in August this year with her when she went to the [place] barefoot and had bite dong all over the body, following which she has been getting recurrent UTIs and pyelonephritis starting September, also reports dry cough since the visit. She reports that the abdominal pain started 12/10 and is associated with tenesmus, she only passes small pellet-like stools associated with mucus and a lot of flatus. Also reports history of internal hemorrhoids and that she is experiencing bright red bleed per rectum for the past few days. She denies lifetime history of colonoscopy/endoscopy. Reports nausea, chills on and off but no fever. Denies lifetime history of STI, is monogamous with the . Her did not get any symptoms after the trip. PCP Jodie Rico [employer] Operator: [employer] Director Of [employer] Dr Schrader Past surgical history; Partial hysterectomy Family history: Unremarkable Social history: Lives with , denies smoking, drank heavily during the vacation - quit since, denies illicit drug 12/17 - Patient seen and examined in bed [address]. reports no acute distress, went to have a bowel movement but only passed gas/mucus and a small stool. She has laboratory reports with her from the past, shows transaminitis starting in 07/10. 12/18 - patient reported no active complaint, undergoing sigmoidoscopy today. Blood pressure is 89/50, IV NS bolus of 500 cc and 250 cc afterwards administered. Blood pressure did not responded to IV fluids. Scheduled for image guided liver biopsy on 12/21 by IR. 12/20 - patient feels fine. Tolerating clear liquid diet. Developing pitting edema, starting midodrine t.i.d. 12/21 - patient reports feeling fine, no acute complaint. Lower extremity pitting edema noticed on exam. Bilateral breath sounds are clear on auscultation. Underwent ultrasound-guided liver biopsy. Patient tolerated procedure well. Stress test is scheduled for tomorrow. NPO starting midnight. Cardiology discontinued midodrine. 12/22- patient reports not getting adequate sleep. Underwent stress test today, negative for ischemia, Large anterior anteroseptal and apical wall infarction without evidence of ischemia. Moderately severe reduced ejection fraction at 38%. 12/23 - no acute distress. Cardiology started Jardiance 10 mg daily increase the dose of Entresto to b.i.d.. Surgeon Dr. Tom - possible colectomy tomorrow, patient has moderate to high risk for colorectal surgery per Cardiology. 12/24 - patient is seen and examined at bedside. Reports no active complaint. Completed bowel prep. Underwent colectomy 12/24. 12/25 - shock is improving 2 pressors, severe metabolic acidosis, no need of reintervention today Objective vital signs Vital Sign Date Time Temp Pulse Resp B/P (MAP) Pulse Ox O2 Delivery O2 Flow Rate FiO2 12/26/23 17:26 104/60 12/26/23 16:45 98.8 77 18 94 209.8 12/26/23 16:45 45 12/26/23 15:32 Mechanical Ventilator+ 12/25/23 13:14 10.0 Total Intake and Output 12/25/23 12/25/23 12/26/23 15:00 23:00 07:00 Intake Total 25 ml 2233.50 ml 1725.75 ml Output Total 125 ml 210 ml Balance 25 ml 2108.50 ml 1515.75 ml medications Current Medications Medications Dose Ordered Sig/Saige Route Start Time Stop Time Status Last Admin Dose Admin Sodium Chloride 10 ml Q8HR IV 12/17/23 22:00 12/26/23 07:02 10 ML Acetaminophen 325 mg Q4HP PRN PO 12/17/23 22:00 Acetaminophen/ Hydrocodone Bitart 1 tab Q4HP PRN PO 12/17/23 22:00 12/24/23 19:06 1 TAB Ondansetron HCl 4 mg Q4HP PRN IV 12/17/23 22:00 12/22/23 20:21 4 MG Midazolam HCl 50 ml @ 1 mls/hr Q24H IV 12/25/23 12:30 12/26/23 15:16 8 MLS/HR Fentanyl Citrate 250 ml @ 2.5 mls/hr Q24H IV 12/25/23 12:30 12/26/23 08:56 10 MLS/HR Norepinephrine Bitartrate 250 ml @ 3.75 mls/hr Q24H IV 12/25/23 12:45 12/26/23 15:16 33.75 MLS/HR Hydromorphone HCl 0.25 mg Q4HPRN PRN IV 12/25/23 16:00 Nitroglycerin 0.4 mg Q5MINP PRN SL 12/25/23 16:00 Propofol 100 ml @ 2.253 mls/ hr Q24H IV 12/25/23 16:15 12/25/23 16:45 2.253 MLS/HR Vasopressin 20 units/Sodium Chloride 100 ml @ 9 mls/hr Q11H7M IV 12/25/23 17:15 12/26/23 12:11 9 MLS/HR Phenylephrine HCl 250 ml @ 30 mls/hr Q8H20M IV 12/25/23 17:15 12/26/23 00:42 48.75 MLS/HR Dopamine HCl/ Dextrose 250 ml @ 14.081 mls/ hr [id number] IV 12/25/23 18:30 Epinephrine HCl 250 ml @ 7.5 mls/hr Q24H IV 12/25/23 18:30 Meropenem 50 ml @ 17 mls/hr Q8HR IV 12/26/23 10:00 12/26/23 08:51 17 MLS/HR Vancomycin HCl 0 ml @ 0 mls/hr UD IV 12/25/23 20:45 Hydrocortisone Sodium Succinate 100 mg Q12HR IV 12/25/23 22:00 12/26/23 07:25 100 MG Pantoprazole Sodium 40 mg DAILY IV 12/26/23 10:00 Vancomycin HCl 200 ml @ 200 mls/hr Q12HR IV 12/26/23 10:30 12/26/23 12:10 200 MLS/HR Sodium Bicarbonate 75 ml/ Dextrose/Sodium Chloride 1,075 ml @ 125 mls/hr Q8H36M IV 12/26/23 11:45 12/26/23 13:06 125 MLS/HR Furosemide 40 mg DAILY IV 12/26/23 11:45 12/26/23 11:45 40 MG Examination General: ETT palor, mucosae are moist Cardiovascular: Regular S1 and S2. No murmurs, gallops or rubs. No JVD elevation. No pedal edema Respiratory: Normal B/L air entry on room air. Clear lung sounds on auscultation Abdomen: Surgical wound clean, Soft, nontender, mildly tender, normoactive bowel sounds, no rebound tenderness, no organomegaly, no masses MSK/skin: Skin is dry and warm. No rash or bite dong seen in lower or upper extremities. laboratory and microbiology Laboratory Tests 12/26/23 03:02 Test 12/26/23 03:02 Range/Units Serum Glucose 148 H 74-106 mg/dL Microbiology Date/Time Source Procedure Growth Status 12/25/23 16:11 Nose MRSA Screen - Final Complete 12/25/23 13:36 Sputum Gram Stain - Final Resulted 12/25/23 13:36 Sputum Respiratory Culture - Preliminary Resulted 12/18/23 13:03 Stool Stool Culture - Final Complete 12/18/23 13:03 Stool Shiga Toxin I & II - Final Complete 12/18/23 11:03 Voided Urine Urine Culture - Final Complete 12/17/23 18:57 Blood Blood Culture - Final NO GROWTH AFTER 5 DAYS OF INCUBATION. 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 Severely reduced left ventricular systolic function with estimated ejection fraction of 35%. There is anterior anteroapical wall akinesia. EKG completed, reviewed - no ST changes. Cardiology consultation - underwent stress test 12/22 which showed large anterior anteroseptal and apical wall infarction without evidence of ischemia. Moderately severe reduced ejection fraction at 38%. 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 Tom - underwent left colon resection with primary anastomosis on 12/24. Patient required pressor support. Dr Tom assessed the patient abdomen soft, no new orders today Patient underwent US-guided right hepatic lobe mass single kwon core obtained 12/21. Pathology results pending. CT abdomen completed with contrast shows a 6 cm segment of the sigmoid colon demonstrating irregular wall thickening suspicious for primary colon malignancy. GI consulted - Flexible sigmoidoscopy with biopsy identified circumferential polypoid ulcerated inflamed and partially obstructing distal descending colon mass close to the proximal sigmoid at about 45-50 cm above the anal verge. 1+ internal hemorrhoids. She denies lifetime history of colonoscopy/endoscopy. Recent travel history to [facility]. H&H 9.3/28.8, hematocrit 77 - Iron panel remarkable for low iron/low % saturation/normal TIBC Tumor markers CEA 326, AFP 2 Transaminitis secondary to metastatic colon cancer CT scan abdomen with contrast shows enlarged liver with numerous poorly enhancing hepatic lesions with the larger lesions measuring greater than 12 cm. Suspicious for metastatic lesions. Liver ultrasound completed [id number] left liver lobe soft tissue mass tried hepatomegaly with increased hepatic echogenicity seen. Blood alcohol level <3 /RENAL KENNA due to shock severe metabolic acidosis non anion gap Low urinary output Nephrology on board Check urine electrolytes and urine protein excretion IVF D5 half NS with 75 mEq sodium bicarb at 100 25 cc/hour Furosemide 40 mg IV q.day Pending urine cultures Case discussed with Dr Hall Time spent in critical care 76 min Full code Plan discussed with: Spouse, Other (rn) My Orders My Orders Orders - ABELINO HUFF Procedure Category Date Status Time Pantoprazole PHA 12/26/23 In Process (Protonix) 10:00 *Dr. [facility] CONS 12/26/23 Transmitted -[place] 10:57 Communication Order ORDERS 12/26/23 Transmitted 10:57 Chest Xray 1 View XY 12/26/23 Resulted 10:57 Et Tube Management DELORES 12/26/23 In Process 11:45 Ventilator Orders RT 12/26/23 Transmitted 13:11 Dietary Evaluation Review Comments: 1) Advance pt diet when medically feasible to a Cardiac diet 2) Continue current plan of care Expected Outcomes/Goals: 1) F/U in 3-5 days Date of Service: Dec 26, 2023 Billing Provider: LEO HALL MD Common Visit Codes: 01808-[id number] CARE 30-74 MIN ABELINO HUFF RESIDENT Dec 26, 2023 17:40 LEO HALL MD Dec 29, 2023 14:25
--- NOTE | 2023-12-26 17:55 | DVHPN2 ---
Progress Note - Dictate Date Seen: Dec 26, 2023 Medical Necessity Reason Pt with a Central, PICC or Fol: No Subjective Patient postop day 1. S/P left colon resection and removal of sigmoid/descending colon tumor Patient seen in ICU intubated sedated Leukocytosis is improving and lactic acidosis is also improving neck, H&H is stable Patient required to be on pressors however she is more stable this morning and her pressors are being tapered off Patient was on 26 mics of Levophed and 0.3 of vasopressin No new complaints vital signs Vital Sign Date Time Temp Pulse Resp B/P (MAP) Pulse Ox O2 Delivery O2 Flow Rate FiO2 12/26/23 17:43 77 12/26/23 17:43 18 92 Mechanical Ventilator+ 45 45 12/26/23 17:30 98.6 93/62 (72) 209.5 100/58 (72) 12/25/23 13:14 10.0 Total Intake and Output 12/25/23 12/25/23 12/26/23 15:00 23:00 07:00 Intake Total 25 ml 2233.50 ml 1725.75 ml Output Total 125 ml 210 ml Balance 25 ml 2108.50 ml 1515.75 ml medications Current Medications Medications Dose Ordered Sig/Saige Route Start Time Stop Time Status Last Admin Dose Admin Sodium Chloride 10 ml Q8HR IV 12/17/23 22:00 12/26/23 07:02 10 ML Acetaminophen 325 mg Q4HP PRN PO 12/17/23 22:00 Acetaminophen/ Hydrocodone Bitart 1 tab Q4HP PRN PO 12/17/23 22:00 12/24/23 19:06 1 TAB Ondansetron HCl 4 mg Q4HP PRN IV 12/17/23 22:00 12/22/23 20:21 4 MG Midazolam HCl 50 ml @ 1 mls/hr Q24H IV 12/25/23 12:30 12/26/23 15:16 8 MLS/HR Fentanyl Citrate 250 ml @ 2.5 mls/hr Q24H IV 12/25/23 12:30 12/26/23 08:56 10 MLS/HR Norepinephrine Bitartrate 250 ml @ 3.75 mls/hr Q24H IV 12/25/23 12:45 12/26/23 15:16 33.75 MLS/HR Hydromorphone HCl 0.25 mg Q4HPRN PRN IV 12/25/23 16:00 Nitroglycerin 0.4 mg Q5MINP PRN SL 12/25/23 16:00 Propofol 100 ml @ 2.253 mls/ hr Q24H IV 12/25/23 16:15 12/25/23 16:45 2.253 MLS/HR Vasopressin 20 units/Sodium Chloride 100 ml @ 9 mls/hr Q11H7M IV 12/25/23 17:15 12/26/23 12:11 9 MLS/HR Phenylephrine HCl 250 ml @ 30 mls/hr Q8H20M IV 12/25/23 17:15 12/26/23 00:42 48.75 MLS/HR Dopamine HCl/ Dextrose 250 ml @ 14.081 mls/ hr [id number] IV 12/25/23 18:30 Epinephrine HCl 250 ml @ 7.5 mls/hr Q24H IV 12/25/23 18:30 Meropenem 50 ml @ 17 mls/hr Q8HR IV 12/26/23 10:00 12/26/23 08:51 17 MLS/HR Vancomycin HCl 0 ml @ 0 mls/hr UD IV 12/25/23 20:45 Hydrocortisone Sodium Succinate 100 mg Q12HR IV 12/25/23 22:00 12/26/23 07:25 100 MG Pantoprazole Sodium 40 mg DAILY IV 12/26/23 10:00 Vancomycin HCl 200 ml @ 200 mls/hr Q12HR IV 12/26/23 10:30 12/26/23 12:10 200 MLS/HR Sodium Bicarbonate 75 ml/ Dextrose/Sodium Chloride 1,075 ml @ 125 mls/hr Q8H36M IV 12/26/23 11:45 12/26/23 13:06 125 MLS/HR Furosemide 40 mg DAILY IV 12/26/23 11:45 12/26/23 11:45 40 MG objective General: Well-built, afebrile, palor, mucosae are moist Cardiovascular: Regular S1 and S2. No murmurs, gallops or rubs. No JVD elevation. No pedal edema Respiratory: Normal B/L air entry on room air. Clear lung sounds on auscultation Abdomen: Soft, nontender, mildly tender, normoactive bowel sounds, no rebound tenderness, no organomegaly, no masses Genitourinary: Deferred MSK/skin: Mobilizes 4 limbs. Skin is dry and warm. No rash or bite dong seen in lower or upper extremities. Neurological: No motor, no sensitive deficits, normal speech. Pupils are isocoric and reactive. Psych/Mental Status: A/Ox4, mood is appropriate. laboratory and microbiology Laboratory Tests 12/26/23 03:02 Test 12/26/23 03:02 Range/Units Serum Glucose 148 H 74-106 mg/dL Problems(with codes): (1) Adenocarcinoma of sigmoid colon (2) Metastatic adenocarcinoma to liver (3) Sigmoid stricture (4) Abnormal finding on GI tract imaging (5) Heart failure with reduced ejection fraction (6) Abdominal pain Prognosis Plan Continue IV fluid hydration NG tube to low intermittent suction IV antibiotics Ventilator support Taper off pressors as tolerated I will follow up patient with you Dietary Evaluation Review Comments: 1) Advance pt diet when medically feasible to a Cardiac diet 2) Continue current plan of care Expected Outcomes/Goals: 1) F/U in 3-5 days Plan discussed with: Other (ICU Nurse) ROD BUCKLEY MD Dec 26, 2023 17:55
[2023-12-27] VITALS (108 sets, daily range): BP systolic 65–251; BP diastolic 52–243; PULSE 62–79; RESP 19–20; TEMP 98.4–99.1; O2SAT 92–97
[2023-12-27 03:51] LABS: Eosinophils # (auto) 0 10 ^3/uL (0-0.8); Monocytes # (auto) 1.3 10 ^3/uL (0-1.3); Red Cell Distribution Width 21.1 % (11.8-14.3)
[2023-12-27 03:52] LABS: Basophils # (auto) 0.1 10 ^3/uL (0-0.2); Basophils % (auto) 0.3 % (0.0-2.0); Hematocrit 32.7 % (36.0-46.0); Hemoglobin 10.3 g/dL (12.2-16.2); Lymphocytes # (auto) 1.1 10 ^3/uL (0.4-5.4); Lymphocytes % (auto) 6.1 % (10.0-50.0); Mean Corpuscular Hgb Conc. 31.4 g/dL (32.0-36.0); Mean Corpuscular Volume 79.6 fL (80.0-100.0); Monocytes % (auto) 7.6 % (0.0-12.0); Neutrophils # (auto) 14.9 10 ^3/uL (1.6-8.6); Nucleated Red Blood Cells % 0.1 %; Platelet Count (auto) 492 10^3/uL (140-450); Red Blood Cells 4.11 10^6/uL (4.0-5.20); White Blood Cell 17.4 10^3/uL (4.4-10.8)
[2023-12-27 04:10] LABS: Alanine Aminotransferase 126 U/L (7-40); Albumin 2.9 g/dL (3.2-4.8); Alkaline Phosphatase 549 U/L (46-116); Anion Gap 11 (5-15); Aspartate Aminotransferase 994 U/L (13-40); BUN/Creatinine Ratio 15.6 (10.0-20.0); Blood Urea Nitrogen 10 mg/dL (9-23); Calcium 7.3 mg/dL (8.7-10.4); Carbon Dioxide 16 mmol/L (20-31); Chloride 108 mmol/L (98-107); Glucose 216 mg/dL (74-106); Magnesium 1.7 mg/dL (1.6-2.6); Potassium 3.7 mmol/L (3.5-5.1); Sodium 135 mmol/L (136-145)
[2023-12-27 04:11] LABS: Bilirubin, Total 1.2 mg/dL (0.2-1.0); Total Protein 5.6 g/dL (5.7-8.2)
[2023-12-27 04:32] LABS: Lactic Acid w/Reflex 4.6 mmol/L (0.4-2.0)
[2023-12-27 05:28] LABS: Large Platelets FEW; Ovalocytes FEW; Platelet Estimate Increa; Stomatocytes Few
--- NOTE | 2023-12-27 05:35 | DVH ---
CHEST RADIOGRAPH Indication:intubated Technique: Single frontal view of the chest was obtained COMPARISON: XY CHEST XRAY 1 VIEW on DOS: 12/26/23, XY CHEST PORTABLE on DOS: 12/26/23, XY CHEST PORTABL E on DOS: 12/25/23 FINDINGS: Lines and Tubes: Endotracheal tube and enteric catheter and left chest wall AICD in satisfactory posi tion. Lungs: Low lung volumes. Pleura: No effusion. No pneumothorax. Cardiomediastinal contours: Unremarkable Bones: Unremarkable IMPRESSION: Lines and tubes in satisfactory position. No significant interval change.
[2023-12-27 07:32] LABS: Base Excess -7.9 mmol/L (-2.0-3.0)
[2023-12-27] MEDS: MAGNESIUM SULFATE 1GM/100ML 100 ML IV SCH (09:44)
[2023-12-27] MEDS: FUROSEMIDE 40 MG/4 ML VIAL IV SCH (09:53)
--- NOTE | 2023-12-27 10:11 | DVHPN2 ---
Progress Note Date Seen: Dec 27, 2023 Medical Necessity Reason Pt with a Central, PICC or Fol: No Subjective Review of Systems: RESPIRATORY:Abnormal Other Systems: Patient seen and examined by myself today in follow-up, patient remained intubated on ventilator Objective vital signs Vital Sign Date Time Temp Pulse Resp B/P (MAP) Pulse Ox O2 Delivery O2 Flow Rate FiO2 12/27/23 10:01 68 20 94/64 (74) 95 45 12/27/23 06:45 98.8 209.8 12/27/23 06:00 Mechanical Ventilator+ 12/25/23 13:14 10.0 Total Intake and Output 12/26/23 12/26/23 12/27/23 15:00 23:00 07:00 Intake Total 1256.25 ml 1635.50 ml 1245.25 ml Output Total 500 ml 450 ml Balance 1256.25 ml 1135.50 ml 795.25 ml medications Current Medications Medications Dose Ordered Sig/Saige Route Start Time Stop Time Status Last Admin Dose Admin Sodium Chloride 10 ml Q8HR IV 12/17/23 22:00 12/27/23 05:38 10 ML Acetaminophen 325 mg Q4HP PRN PO 12/17/23 22:00 Acetaminophen/ Hydrocodone Bitart 1 tab Q4HP PRN PO 12/17/23 22:00 12/24/23 19:06 1 TAB Ondansetron HCl 4 mg Q4HP PRN IV 12/17/23 22:00 12/22/23 20:21 4 MG Midazolam HCl 50 ml @ 1 mls/hr Q24H IV 12/25/23 12:30 12/27/23 05:37 7 MLS/HR Fentanyl Citrate 250 ml @ 2.5 mls/hr Q24H IV 12/25/23 12:30 12/27/23 08:36 10 MLS/HR Norepinephrine Bitartrate 250 ml @ 3.75 mls/hr Q24H IV 12/25/23 12:45 12/26/23 15:16 33.75 MLS/HR Hydromorphone HCl 0.25 mg Q4HPRN PRN IV 12/25/23 16:00 Nitroglycerin 0.4 mg Q5MINP PRN SL 12/25/23 16:00 Propofol 100 ml @ 2.253 mls/ hr Q24H IV 12/25/23 16:15 12/25/23 16:45 2.253 MLS/HR Vasopressin 20 units/Sodium Chloride 100 ml @ 9 mls/hr Q11H7M IV 12/25/23 17:15 12/27/23 00:55 9 MLS/HR Phenylephrine HCl 250 ml @ 30 mls/hr Q8H20M IV 12/25/23 17:15 12/26/23 00:42 48.75 MLS/HR Dopamine HCl/ Dextrose 250 ml @ 14.081 mls/ hr [id number] IV 12/25/23 18:30 Epinephrine HCl 250 ml @ 7.5 mls/hr Q24H IV 12/25/23 18:30 Meropenem 50 ml @ 17 mls/hr Q8HR IV 12/26/23 10:00 12/27/23 05:39 17 MLS/HR Vancomycin HCl 0 ml @ 0 mls/hr UD IV 12/25/23 20:45 Hydrocortisone Sodium Succinate 100 mg Q12HR IV 12/25/23 22:00 12/27/23 09:48 100 MG Pantoprazole Sodium 40 mg DAILY IV 12/26/23 10:00 12/27/23 09:47 40 MG Vancomycin HCl 200 ml @ 200 mls/hr Q12HR IV 12/26/23 10:30 12/26/23 22:06 200 MLS/HR Sodium Bicarbonate 75 ml/ Dextrose/Sodium Chloride 1,075 ml @ 125 mls/hr Q8H36M IV 12/26/23 11:45 12/27/23 05:37 125 MLS/HR Magnesium Sulfate/ Dextrose 100 ml @ 100 mls/hr Q1HR IV 12/27/23 10:00 12/27/23 11:59 12/27/23 09:44 100 MLS/HR Furosemide 40 mg BIDD IV 12/27/23 09:21 12/27/23 09:53 40 MG Examination: LUNGS:Normal, CVS:Normal, MSK:Normal laboratory and microbiology Laboratory Tests 12/27/23 03:10 Test 12/27/23 03:10 Range/Units Serum Glucose 216 H 74-106 mg/dL Microbiology Date/Time Source Procedure Growth Status 12/26/23 02:03 Blood Blood Culture - Preliminary NO GROWTH AFTER 24 HOURS OF INCUBATION. Resulted 12/25/23 16:11 Nose MRSA Screen - Final Complete 12/25/23 13:36 Sputum Gram Stain - Final Complete 12/25/23 13:36 Respiratory Culture - Final Enterobacter cloacae Complete 12/18/23 13:03 Stool Stool Culture - Final Complete 12/18/23 13:03 Stool Shiga Toxin I & II - Final Complete 12/18/23 11:03 Voided Urine Urine Culture - Final Complete Problem List/Assessment/Plan Problem List/Assessment/Plan Acute kidney injury due to hemodynamic mediated 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 Acute respiratory failure, intubated on ventilator Septic shock Metabolic acidosis Hyponatremia due hypotonic IV fluid Transaminitis Microcytic anemia due to blood loss Iron deficiency Hypomagnesemia Recommendations Kidney function is improving Increased urine output Azar catheter Strict I&Os IVF D5 half NS with 75 mEq sodium bicarb at 100 25 cc/hour Furosemide 40 mg IV q.day Magnesium sulfate 2 g IV piggyback IV antibiotics IV iron replacement IV pressors for blood pressure support We will continue to monitor Plan discussed with: Other (Nurse) My Orders My Orders Orders - SHAMEKA GONZALEZ MD Procedure Category Date Status Time D5w/Sod Chl 0.45% PHA 12/26/23 In Process (... W/Sodium Bicarb 5 11:45 Urine Bacterial TONYA 12/26/23 In Process Culture 17:41 Magnesium Sulfate PHA 12/27/23 Logged 1gm/100ml 11:00 Dietary Evaluation Review Comments: 1) Advance pt diet when medically feasible to a Cardiac diet 2) Continue current plan of care Expected Outcomes/Goals: 1) F/U in 3-5 days SHAMEKA GONZALEZ MD Dec 27, 2023 10:11
[2023-12-27] MEDS ORDERED: MAGNESIUM SULFATE 1GM/100ML 100 ML IV SCH (11:00)
--- NOTE | 2023-12-27 13:12 | DVHPN2 ---
Eyes: No Pain, No Vision change, No Conjunctivae inflammation, No Eyelid inflammation, No Other, No Redness ENT: No Ear pain, No Ear discharge, No Nose pain, No Nose discharge, No Nose congestion, No Mouth pain, No Mouth swelling, No Throat pain, No Throat swelling, No Other Cardiovascular: No Chest Pain, No Palpitations, No Orthopnea, No Paroxysmal Noc. Dyspnea, No Edema, No Lt Headedness, No Other Respiratory: Cough, Dry, Shortness of breath Gastrointestinal: Nausea; No Vomiting; Abdominal Pain; No Diarrhea, No Constipation, No Melena, No Hematochezia, No Other Genitourinary: Dysuria; No Frequency, No Incontinence, No Hematuria, No Retention, No Other Musculoskeletal: No other, No neck pain, No shoulder pain, No arm pain, No back pain, No hand pain, No leg pain, No foot pain Skin: No Rash, No Lesions, No Jaundice, No Bruising, No Other Objective Vitals Vital Signs Date Time Temp Pulse Resp B/P (MAP) Pulse Ox O2 Delivery O2 Flow Rate FiO2 12/27/23 12:08 105/63 12/27/23 12:06 67 20 95 45 12/27/23 12:00 Mechanical Ventilator+ 12/27/23 06:45 98.8 209.8 12/25/23 13:14 10.0 Intake/Output Intake and Output 12/27/23 07:00 Intake Total 4137.00 ml Output Total 950 ml Balance 3187.00 ml IV Total 4137.00 ml Output Urine Total 850 ml Gastric Drainage Total 100 ml Medications Current Medications Medications Dose Ordered Sig/Saige Route Start Time Stop Time Status Last Admin Dose Admin Sodium Chloride 10 ml Q8HR IV 12/17/23 22:00 12/27/23 05:38 10 ML Acetaminophen 325 mg Q4HP PRN PO 12/17/23 22:00 Acetaminophen/ Hydrocodone Bitart 1 tab Q4HP PRN PO 12/17/23 22:00 12/24/23 19:06 1 TAB Ondansetron HCl 4 mg Q4HP PRN IV 12/17/23 22:00 12/22/23 20:21 4 MG Midazolam HCl 50 ml @ 1 mls/hr Q24H IV 12/25/23 12:30 12/27/23 05:37 7 MLS/HR Fentanyl Citrate 250 ml @ 2.5 mls/hr Q24H IV 12/25/23 12:30 12/27/23 08:36 10 MLS/HR Norepinephrine Bitartrate 250 ml @ 3.75 mls/hr Q24H IV 12/25/23 12:45 12/26/23 15:16 33.75 MLS/HR Hydromorphone HCl 0.25 mg Q4HPRN PRN IV 12/25/23 16:00 Nitroglycerin 0.4 mg Q5MINP PRN SL 12/25/23 16:00 Propofol 100 ml @ 2.253 mls/ hr Q24H IV 12/25/23 16:15 12/25/23 16:45 2.253 MLS/HR Vasopressin 20 units/Sodium Chloride 100 ml @ 9 mls/hr Q11H7M IV 12/25/23 17:15 12/27/23 12:08 9 MLS/HR Phenylephrine HCl 250 ml @ 30 mls/hr Q8H20M IV 12/25/23 17:15 12/26/23 00:42 48.75 MLS/HR Dopamine HCl/ Dextrose 250 ml @ 14.081 mls/ hr [id number] IV 12/25/23 18:30 Epinephrine HCl 250 ml @ 7.5 mls/hr Q24H IV 12/25/23 18:30 Meropenem 50 ml @ 17 mls/hr Q8HR IV 12/26/23 10:00 12/27/23 05:39 17 MLS/HR Vancomycin HCl 0 ml @ 0 mls/hr UD IV 12/25/23 20:45 Hydrocortisone Sodium Succinate 100 mg Q12HR IV 12/25/23 22:00 12/27/23 09:48 100 MG Pantoprazole Sodium 40 mg DAILY IV 12/26/23 10:00 12/27/23 09:47 40 MG Vancomycin HCl 200 ml @ 200 mls/hr Q12HR IV 12/26/23 10:30 12/27/23 11:16 200 MLS/HR Sodium Bicarbonate 75 ml/ Dextrose/Sodium Chloride 1,075 ml @ 125 mls/hr Q8H36M IV 12/26/23 11:45 12/27/23 05:37 125 MLS/HR Furosemide 40 mg BIDD IV 12/27/23 09:21 12/27/23 09:53 40 MG Laboratory Results Laboratory Tests 12/27/23 03:10 12/27/23 09:33 Chemistry Test 12/27/23 03:10 Albumin 2.9 g/dL (3.2-4.8) L Calcium Level 7.3 mg/dL (8.7-10.4) L Magnesium Level 1.7 mg/dL (1.6-2.6) Total Protein 5.6 g/dL (5.7-8.2) L LFT Test 12/27/23 03:10 Alanine Aminotransferase (ALT) 126 U/L (7-40) H Alkaline Phosphatase 549 U/L (46-116) H Aspartate Amino Transferase (AST) 994 U/L (13-40) H Total Bilirubin 1.2 mg/dL (0.2-1.0) H Urinalysis Test 12/26/23 01:30 Urine Color Yellow (Yellow) Urine Clarity Turbid (Clear) H Urine pH 5.5 (5.0-9.0) Urine Specific [place] 1.025 (1.001-1.035) Urine Protein 1+ (Negative) H Urine Ketones Trace (Negative) Urine Blood 3+ /uL (Negative) H Urine Nitrite Negative (Negative) Urine Bilirubin Negative (Negative) Urine Urobilinogen Normal mg/dL (Negative) Urine Leukocyte Esterase Negative /uL (Negative) Urine RBC 87 /hpf (0 - 4) Urine WBC 6 /hpf (0 - 5) Urine Squamous Epithelial Cells None seen /hpf (<5) Urine Bacteria Few /hpf (None Seen) H Urine Hyaline Casts Mod /lpf (0 - 2) Urine Granular Casts Few /lpf (0) Urine Mucus Few (None Seen) Urine Yeast (Budding) Occasional /hpf (None Urine Creatinine 64.14 mg/dL (30.0-125.0) Urine Protein/Creatinine Ratio 1.97 Urine Sodium 35 mmol/L (40-220) L Urine Glucose Normal mg/dL (Normal) Urine Total Protein 126.3 mg/dL (1-14) H Blood Gas Results Test 12/27/23 07:25 Arterial Blood pH 7.314 (7.350-7.450) FiO2 % 45.0 Microbiology Microbiology Date/Time Source Procedure Growth Status 12/26/23 02:03 Blood Blood Culture - Preliminary NO GROWTH AFTER 24 HOURS OF INCUBATION. Resulted 12/26/23 01:30 Voided Urine Urine Culture - Preliminary Resulted 12/25/23 16:11 Nose MRSA Screen - Final Complete 12/25/23 13:36 Sputum Gram Stain - Final Complete 12/25/23 13:36 Respiratory Culture - Final Enterobacter cloacae Complete 12/18/23 13:03 Stool Stool Culture - Final Complete 12/18/23 13:03 Stool Shiga Toxin I & II - Final Complete Assessment/Plan My Orders Orders - ROXY MARTINS MD Procedure Category Date Status Time Furosemide Injection PHA 12/27/23 In Process (Lasix Injection) 09:21 Continuous Monitoring DELORES 12/27/23 In Process Of Cvp,P 09:07 ROXY MARTINS MD Dec 27, 2023 13:12
--- NOTE | 2023-12-27 14:37 | DVHPN2 ---
Assessment/Plan Assessment/Plan 63-year-old female with heart failure with reduced ejection fraction status post ICD, CAD status post RYAN x4 February 05, 2018, hyperlipidemia, recurrent UTI, pyelonephritis, hypertension admitted for abdominal pain. Found to have metastatic colon cancer, status post left colectomy, with difficulty extubating and taking patient off pressors. Total critical care time spent on this patient more than 65 minutes including evaluation, chart review, formulating plan and communication with team, excluding any procedures Physical exam Intubated, mechanically ventilated PERRLA JVD to jaw Mechanical breath sounds S1-S2 regular rate and rhythm no murmur Abdomen with binder Trace lower extremity edema Lab Leukocytosis Microcytic anemia Thrombocytosis likely reactive Elevated lactate Low bicarb Hypochloremic hyponatremia Hyperglycemia Transaminitis worsening Assessment and plan Distributive shock Acute hypoxic respiratory failure Chronic systolic heart failure Heart failure with reduced ejection fraction, 35% Metastatic colon cancer status post left colectomy Iron-deficiency anemia Possible shock liver Transaminitis secondary to hepatic metastasis KENNA secondary to shock Non-anion gap metabolic acidosis high Anion gap metabolic acidosis due to lactic acidosis Troponin elevation likely type 2 IA History of CAD status post RYAN x4 Continue on mechanical ventilation Continue sedation with Versed and fentanyl Continue pressors, Levophed and vasopressin, trend down to maintain map of above 60 Wide PPV, increase Lasix to 40 mg IV b.i.d. Concentrate drips Goal fluid balance 0 to -500 Continue with meropenem Surgery consult appreciated Continue with sodium bicarb drip, we will transition to bicarb push once lactate improves NG tube to low intermittent suction Line TLC Azar A line Diet NPO DVT prophylaxis SCD Condition critical Prognosis poor Plan discussed with: Other My Orders Orders - ROXY MARTINS MD Procedure Category Date Status Time Furosemide Injection PHA 12/27/23 In Process (Lasix Injection) 09:21 Continuous Monitoring DELORES 12/27/23 In Process Of Cvp,P 09:07 Comprehensive LAB 12/27/23 Logged Metabolic Panel 13:49 Lactic Acid W/ Reflex LAB 12/27/23 Logged Order 13:49 Ipratropium Medneb PHA 12/27/23 In Process (Atrovent Medneb) 18:00 Date of Service: Dec 27, 2023 Billing Provider: ROXY MARTINS MD Common Visit Codes: 86520-[id number] INP/OBS CARE(HIGH), 97025-[id number] CARE 30-74 MIN ROXY MARTINS MD Dec 27, 2023 14:37
[2023-12-27] MEDS: NOREPINEPHRINE BITARTRATE 32 MG in SODIUM CHL 0.9% 218 ML IV SCH (14:47)
[2023-12-27 15:00] LABS: Alanine Aminotransferase 184 U/L (7-40); Albumin 2.8 g/dL (3.2-4.8); Alkaline Phosphatase 528 U/L (46-116); Anion Gap 10 (5-15); BUN/Creatinine Ratio 17.5 (10.0-20.0); Blood Urea Nitrogen 10 mg/dL (9-23); Calcium 7.2 mg/dL (8.7-10.4); Carbon Dioxide 18 mmol/L (20-31); Chloride 108 mmol/L (98-107); Glucose 216 mg/dL (74-106); Potassium 3.5 mmol/L (3.5-5.1); Sodium 136 mmol/L (136-145)
[2023-12-27 15:01] LABS: Bilirubin, Total 1.2 mg/dL (0.2-1.0); Total Protein 5.5 g/dL (5.7-8.2)
[2023-12-27 15:11] LABS: Aspartate Aminotransferase 1172 U/L (13-40)
[2023-12-27 15:12] LABS: Lactic Acid w/Reflex 4.3 mmol/L (0.4-2.0)
--- NOTE | 2023-12-27 16:39 | DVHINCON2 ---
Date of service: Dec 27, [address] Heath Reason for Consultation Ventilator management, acute respiratory failure History of Present Illness 63-year-old woman history of chronic systolic heart failure, status post defibrillator placement, CAD status post PTCA with multiple stents, hyperlipidemia, hypertension, recurrent UTI, hemorrhoids, partial hysterectomy who presented with a chief complaint of abdominal pain for one week prior to admission. She was currently sedated, intubated on mechanical ventilator. History is obtained from EMR, RN MD Elias for patient. Pulmonary consultation is called due to acute hypoxic respiratory failure on mechanical ventilator management. Review of systems: Unable to obtain due to patient's critical condition. Past medical history: chronic systolic heart failure, status post defibrillator placement, CAD status post PTCA with multiple stents, hyperlipidemia, hypertensi on, recurrent UTI, hemorrhoids, partial hysterectomy Past surgical history: CAD status post PTCA with multiple stents, partial h ysterectomy, status post defibrillator placement Medications: Reviewed Allergies: Lisinopril, morphine Family history: No family history of premature CAD. No family history of lung disease. Social history: Nonsmoker. No alcohol or illicit drug use. Family History: Cardiovascular disease G8 MOTHER Cerebrovascular accident (CVA) G8 MOTHER Diabetes mellitus G8 MOTHER Thyroid disease G8 MOTHER Allergies: Coded Allergies: Lisinopril (Verified Allergy, Unknown, 12/29/17) Morphine (Verified Allergy, Unknown, 09/21/17) Home Meds Reported Medications Empagliflozin (Jardiance) 10 Mg Tab, 10 MG PO DAILY, TAB 12/19/23 Sacubitril-Valsartan (Entresto 24-26 mg) 1 Tab Tab, 1 TAB PO BID, TAB 12/18/23 Temazepam (Restoril) 15 Mg Cp, 1 CAP PO QPM PRN for FOR INSOMNIA, #30 CAP 1 Refill 09/22/17 Metoprolol Succinate (Toprol Xl) 25 Mg Tab, 25 MG PO DAILY, TAB 09/21/17 Atorvastatin Calcium (Lipitor) 80 Mg Tab, 80 MG PO HS, TAB 09/21/17 Aspirin (Aspir-Low) 81 Mg Tab, 81 MG PO DAILY for 30 Days, MG 09/21/17 Current Medications Current Medications Medications (Trade) Dose Ordered Sig/Saige Route PRN Reason Start Time Stop Time Status Last Admin Magnesium Sulfate/ Dextrose 100 ml @ 100 mls/hr Q1HR IV 12/27/23 10:00 12/27/23 11:59 DC 12/27/23 13:31 Furosemide (Lasix Injection) 40 mg BIDD IV 12/27/23 09:21 12/27/23 09:53 Magnesium Sulfate/ Dextrose 100 ml @ 100 mls/hr Q1HR IV 12/27/23 11:00 12/27/23 10:54 DC Ipratropium [place] (Atrovent Medneb) 0.5 mg Q6HR NEB 12/27/23 18:00 Cancel Norepinephrine Bitartrate 32 mg/ Sodium Chloride 250 ml @ 0.938 mls/ hr Q24H IV 12/27/23 14:45 12/27/23 14:47 Vital Signs Vital Signs Date Time Temp Pulse Resp B/P (MAP) Pulse Ox O2 Delivery O2 Flow Rate FiO2 12/27/23 15:27 65 20 92/68 (76) 95 45 12/27/23 14:30 99.0 210.2 12/27/23 14:00 Mechanical Ventilator+ 12/25/23 13:14 10.0 Physical Exam Gen.: Patient lying in bed in medical ICU. Sedated, intubated on mechanical ventilator. Head: Normocephalic, atraumatic. Eyes: PERRLA. Ears: Normal external anatomy. Throat: Endotracheal tube and orogastric tube in place. Neck: Supple, trachea midline. Chest: Transmitted breath sounds bilaterally. Decreased air entry bilaterally. No wheezing. Bibasilar crackles. Cardio vascular: Positive S1, positive S2. Regular rate and rhythm. Abdomen: Positive bowel sounds in all 4 quadrants. Soft, nontender, nondistended. : Azar in place. Normal external genitalia. Rectal: Deferred Skin: Warm, dry. Intact. Extremities: 2+ radial pulses bilaterally. No lower extremity edema. Neuro: Sedated. Labs/Diagnostic Data Labs Test 12/27/23 14:08 12/27/23 09:33 12/27/23 07:25 12/27/23 03:10 Range/Units Sodium Level 136 136-145 mmol/L Potassium Level 3.5 3.5-5.1 mmol/L Chloride Level 108 H 98-107 mmol/L Carbon Dioxide Level 18 L 20-31 mmol/L Anion Gap 10 5-15 Blood Urea Nitrogen 10 9-23 mg/dL Creatinine 0.57 0.550-1.02 mg/dL Glomerular Filtration Rate Calc 103 >90 mL/min BUN/Creatinine Ratio 17.5 10.0-20.0 Serum Glucose 216 H 74-106 mg/dL Lactic Acid Level 4.3 *H 0.4-2.0 mmol/L Calcium Level 7.2 L 8.7-10.4 mg/dL Total Bilirubin 1.2 H 0.2-1.0 mg/dL Aspartate Amino Transferase (AST) 1172 H 13-40 U/L Alanine Aminotransferase (ALT) 184 H 7-40 U/L Alkaline Phosphatase 528 H 46-116 U/L Total Protein 5.5 L 5.7-8.2 g/dL Albumin 2.8 L 3.2-4.8 g/dL Vancomycin Level Trough 19.1 H 5-10 ug/mL Blood Gas Specimen Type Arterial Blood Gas Sample Site Right radial Blood Gas Patient Temperature 37.0 Arterial Blood Date Drawn [id number] Arterial Blood pH 7.314 L 7.350-7.450 Arterial Blood Partial Pressure CO2 35.1 32.0-45.0 mmHg Arterial Blood Partial Pressure O2 73.8 L 83.0-108.0 mmHg Arterial Blood HCO3 17.4 L 21.0-28.0 mmol/L Arterial Blood Oxygen Saturation 93.2 L 94.0-98.0 % Arterial Blood Base Excess -7.9 L -2.0-3.0 mmol/L Arterial Blood Oxyhemoglobin 92.7 L 94.0-98.0 % Arterial Blood Carboxyhemoglobin 0.3 L 0.5-1.5 % Arterial Blood Methemoglobin 0.2 0.0-1.5 % Aquiles Test Modified Blood Gas Total Hemoglobin 11.40 L 12.0-16.0 g/dL Blood Gas Set Respiration Rate 20.0 Blood Gas Modality Vent - ac FiO2 % 45.0 Blood Gas Tidal Volume 450.0 Blood Gas PEEP or CPAP 5.0 White Blood Count 17.4 H 4.4-10.8 10^3/uL Red Blood Count 4.11 4.0-5.20 10^6/uL Hemoglobin 10.3 L 12.2-16.2 g/dL Hematocrit 32.7 L 36.0-46.0 % Mean Corpuscular Volume 79.6 L 80.0-100.0 fL Mean Corpuscular Hemoglobin 25.0 L 28.0-32.0 pg Mean Corpuscular Hemoglobin Concent 31.4 L 32.0-36.0 g/dL Red Cell Distribution Width 21.1 H 11.8-14.3 % Platelet Count 492 H 140-450 10^3/uL Mean Platelet Volume 7.4 6.9-10.8 fL Neutrophils (%) (Auto) 86.0 H 37.0-80.0 % Lymphocytes (%) (Auto) 6.1 L 10.0-50.0 % Monocytes (%) (Auto) 7.6 0.0-12.0 % Eosinophils (%) (Auto) 0.0 0.0-7.0 % Basophils (%) (Auto) 0.3 0.0-2.0 % Neutrophils # (Auto) 14.9 H 1.6-8.6 10 ^3/uL Lymphocytes # (Auto) 1.1 0.4-5.4 10 ^3/uL Monocytes # (Auto) 1.3 0-1.3 10 ^3/uL Eosinophils # (Auto) 0 0-0.8 10 ^3/uL Basophils # (Auto) 0.1 0-0.2 10 ^3/uL Nucleated Red Blood Cells 0.1 % Platelet Estimate Increa Large Platelets Few Ovalocytes Few Stomatocytes Few [place] Cells Moderate Schistocytes Few Magnesium Level 1.7 1.6-2.6 mg/dL Test 12/26/23 12:45 12/26/23 08:06 12/26/23 01:30 12/25/23 20:00 Range/Units Phosphorus Level 3.5 2.4-5.1 mg/dL Vitamin D 25-Hydroxy 37.7 30.0-100 ng/mL Parathyroid Hormone (Intact) 52.1 18.4-80.1 pg/mL Blood Gas Spontaneous Rate 18 Specimen Drawn By Alexei saw runner Blood Gas Critical Value Read Back Yes Blood Gas Notified Whom Dr. nair Blood Gas Notified Time [id number] Blood Gas Notified By Alexei bell Urine Color Yellow Yellow Urine Clarity Turbid H Clear Urine pH 5.5 5.0-9.0 Urine Specific [place] 1.025 1.001-1.035 Urine Protein 1+ H Negative Urine Ketones Trace Negative Urine Blood 3+ H Negative /uL Urine Nitrite Negative Negative Urine Bilirubin Negative Negative Urine Urobilinogen Normal Negative mg/dL Urine Leukocyte Esterase Negative Negative /uL Urine RBC 87 0 - 4 /hpf Urine WBC 6 0 - 5 /hpf Urine Squamous Epithelial Cells None seen <5 /hpf Urine Bacteria Few H None Seen /hpf Urine Hyaline Casts Mod 0 - 2 /lpf Urine Granular Casts Few 0 /lpf Urine Mucus Few None Seen Urine Yeast (Budding) Occasional None Seen /hpf Urine Creatinine 64.14 30.0-125.0 mg/dL Urine Protein/Creatinine Ratio 1.97 Urine Sodium 35 L 40-220 mmol/L Urine Glucose Normal Normal mg/dL Urine Total Protein 126.3 H 1-14 mg/dL Prothrombin Time 17.8 H 9.3-11.8 sec Prothrombin Time INR 1.75 H 0.9-1.15 Activated Partial Thromboplast Time 34.0 24.5-34.5 SEC Test 12/25/23 13:40 12/20/23 20:06 12/19/23 16:03 12/19/23 10:40 Range/Units Blood Gas Pressure Support 12 POC Glucose 101 70-106 mg/dl Troponin I High Sensitivity 42 *H </=34 ng/L CA 19-9 Antigen 1546 H 0-35 U/mL Test 12/18/23 13:03 12/18/23 12:28 12/18/23 08:21 12/18/23 08:02 Range/Units Stool Occult Blood Positive Negative Stool Occult Blood Sample #3 Negative SARS-CoV-2 Antigen (Rapid) Negative NEGATIVE Erythrocyte Sedimentation Rate 75 H 0-20 mm/hr Hemoglobin A1c 5.1 <5.7 % A1C Iron Level 25 L 50-170 ug/dL Total Iron Binding Capacity 323 250-425 ug/dL Percent Iron Saturation 7.7 L 15-50 % Creatine Kinase 409 H 34-145 U/L C-Reactive Protein High Sensitivity 10.15 H <1.0 mg/dL B-Type Natriuretic Peptide 128.60 0-100 pg/mL Tumor Marker Alpha Fetoprotein 2.0 0.0-9.2 ng/mL Carcinoembryonic Antigen 326.14 <=5.0 ng/mL Vitamin B12 Level 2343 H 211-911 pg/mL Folic Acid 6.56 >5.38 ng/mL Thyroid Stimulating Hormone (TSH) 2.84 0.55-4.78 uIU/mL Plasma/Serum Blood Alcohol < 3.0 <10 mg/dL Hepatitis A IgM Antibody Negative Hepatitis A Antibody Total Positive H Negative Hepatitis B Surface Antigen Negative Negative Hepatitis B Surface Antibody Negative Negative Hepatitis B Core Total Antibody Negative Negative Hepatitis B Core IgM Antibody Negative Hepatitis C Antibody Negative Negative Urine Opiates Screen Neg NEGATIVE Urine Fentanyl Screen Neg NEGATIVE Urine Barbiturates Screen Neg NEGATIVE Urine Phencyclidine Screen Neg NEGATIVE Urine Amphetamines Screen Neg NEGATIVE Urine Benzodiazepines Screen Neg NEGATIVE Urine Cocaine Screen Neg NEGATIVE Urine Cannabinoids Screen Neg NEGATIVE Microbiology Date/Time Source Procedure Growth Status 12/26/23 02:03 Blood Blood Culture - Preliminary NO GROWTH AFTER 24 HOURS OF INCUBATION. Resulted 12/26/23 01:30 Voided Urine Urine Culture - Preliminary Resulted 12/25/23 16:11 Nose MRSA Screen - Final Complete 12/25/23 13:36 Sputum Gram Stain - Final Complete 12/25/23 13:36 Respiratory Culture - Final Enterobacter cloacae Complete 12/18/23 13:03 Stool Stool Culture - Final Complete 12/18/23 13:03 Stool Shiga Toxin I & II - Final Complete Assessment Impression: Acute hypoxic respiratory failure On mechanical ventilator Sepsis due to liver abscess Possible MARCIANO in liver Chronic systolic heart failure CAD s/p PTCA with multiple stents and s/p defibrillator Distributive shock Metastatic colon cancer status post left colectomy Iron deficiency anemia Acute kidney injury due to shock Metabolic acidosis Lactic acidosis Plan: s/p intubation on mechanical ventilator CXR image and report reviewed. Devices in place. Hypoinflation. ABG reviewed. Acidemia due to metabolic acidosis Currently on assist control with respiratory rate of 20, tidal volume 450, peep of five, FiO2 of 45%. Titrate FIO2 to keep O2 saturation above 92%. VAP bundle Daily ABG and CXR while intubated. Sedate for ventilatory synchrony On pressors for hemodynamic support. On Levophed at 10 micrograms/minute On vasopressin at 0.03 units/minute. Titrate to keep MAP above 65 mmHg/SBP above 90 mmHg. Continue antibiotics. F/u cultures. Blood cultures no growth after 24 hours. Sputum culture notable for Enterobacter cloacae eight. Monitor renal function Monitor ins/outs Diurese with Lasix BID Monitor electrolytes. Supplement as necessary. Monitor lactic acid due to lactic acidosis. Nutritional support. Accucheks, ISS. GI/DVT prophylaxis. Condition: Critical Prognosis: Poor given multiple comorbidities. Rest of plan per hospitalist and other consultants. A total of 36 minutes of critical care time was spent reviewing the patient rec ord, examining the patient, making a diagnostic and therapeutic plan, discussing this plan with the medical personnel, following up on diagnostic studies and following the patient for clinical stability excluding any and all procedures. At least 50% of this time was spent in direct, [id number] contact. Thank you Dr. Heath for allowing me to participate in this patient's care. Further recommendations will depend on patient's clinical course. Please do not hesitate to contact me if you have any questions or concerns. This medical document was created using an electronic medical record system with [employer] dictation system. Although this document has been carefully reviewed, there may still be some phonetic and typographical errors. These area s are purely typographical due to imperfections of the software programs, and do not reflect any compromise in the patient's medical care. Plan discussed with: Other (WALKER Tavera, RT, ) DAYSI DYKES MD Dec 27, 2023 16:39
--- NOTE | 2023-12-27 16:42 | DVH ---
Exam: CT CT AB PEL WO CON-NO ORAL OR IV History: abdominal distended, s/p ex lap Comparison Study: CT CT AB PEL WITH IV CON ONLY on DOS: 12/18/23 Technique: Multidetector spiral CT of the abdomen was performed from lung bases to pubic symphysis. Imaging was performed without IV contrast. Axial, coronal and sagittal multiplanar reformats were ob tained from the axial data set by the technologist. Radiation Dose : 1. Abdomen/Pelvis: CTDIvol 19 mGy, DLP 1042.61 mGy*cm. Findings: Evaluation of solid organs is limited due to lack of intravenous contrast use. Lung Bases: Trace bilateral pleural effusions with adjacent left worse than right bibasilar atelectas is/consolidation. Borderline enlarged heart size. No pericardial effusion. Cardiac pacer leads. Liver: Redemonstration of numerous hypodense lesions throughout the liver, better characterized on pr ior contrast-enhanced CT. Gallbladder and Biliary Tree: Decompressed and not well evaluated. Spleen: Unremarkable Pancreas: The pancreas is grossly normal in appearance. Adrenal Glands: Unremarkable Kidneys: Kidneys are grossly normal without calculi or hydronephrosis. Bladder: Decompressed with Azar catheter. Bowel: There are interval postsurgical changes related to sigmoid colon resection. There is diffuse b owel wall thickening of the large bowel in the pelvis. The bowel loops are nondilated. Enteric tube t erminates in the stomach. Ascites: New small volume ascites. Lymphadenopathy: No mesenteric, retroperitoneal or periportal lymphadenopathy. Abdominal Wall and Mesentery: Anterior postsurgical changes. Diffuse anasarca. Trace pneumoperitoneum , likely postsurgical. Worsening diffuse mesenteric edema. Vasculature: The visualized abdominal aorta is normal in size and caliber. Evaluation of abdominal a nd pelvic vessels is limited due to lack of intravenous contrast. Pelvic Organs: Surgically absent uterus. Musculoskeletal: No aggressive focal bony lesions, acute fractures or dislocation. IMPRESSION: 1. Interval postsurgical change related to sigmoid colon resection. Diffuse bowel wall thickening of the large bowel in the pelvis, could represent postsurgical reactive change versus infectious or inf lammatory etiology with underlying residual mass not completely excluded. No evidence of bowel obstru ction. 2. Redemonstration of hepatic metastatic disease. 3. New small volume ascites and worsening diffuse mesenteric edema. 4. Trace bilateral pleural effusions. Radiation optimization: All CT scans at this facility use at least one of these dose optimization alan hniques: automated exposure control mA and/or kV adjustment per patient size (includes targeted exam s where dose is matched to clinical indication) or iterative reconstruction.
[2023-12-27] MEDS ORDERED: IPRATROPIUM BROM 0.5 MG/2.5ML INH SOL NEB SCH (18:00)
--- NOTE | 2023-12-27 19:52 | DVHPN2 ---
Progress Note - Dictate Date Seen: Dec 27, 2023 Medical Necessity Reason Pt with a Central, PICC or Fol: No Subjective Patient postop day 2 S/P left colon resection and removal of sigmoid/descending colon tumor Patient seen in ICU intubated sedated; FiO2 45% with a PEEP of five Leukocytosis and lactic acidosis is persistent Patient has moderate elevation in liver enzymes are rising up likely related to hypoxic liver injury and underlying liver metastatic disease Patient required to be on pressors however she is more stable this morning and her pressors are being tapered off Patient is of vasopressin and Levophed is being tapered down vital signs Vital Sign Date Time Temp Pulse Resp B/P (MAP) Pulse Ox O2 Delivery O2 Flow Rate FiO2 12/27/23 19:45 99.1 65 20 102/69 (80) 95 210.4 105/61 (76) 12/27/23 18:31 45 12/27/23 18:00 Mechanical Ventilator+ 12/25/23 13:14 10.0 Total Intake and Output 12/26/23 12/26/23 12/27/23 15:00 23:00 07:00 Intake Total 1256.25 ml 1635.50 ml 1415.00 ml Output Total 500 ml 450 ml Balance 1256.25 ml 1135.50 ml 965.00 ml medications Current Medications Medications Dose Ordered Sig/Saige Route Start Time Stop Time Status Last Admin Dose Admin Sodium Chloride 10 ml Q8HR IV 12/17/23 22:00 12/27/23 14:47 10 ML Acetaminophen 325 mg Q4HP PRN PO 12/17/23 22:00 Acetaminophen/ Hydrocodone Bitart 1 tab Q4HP PRN PO 12/17/23 22:00 12/24/23 19:06 1 TAB Ondansetron HCl 4 mg Q4HP PRN IV 12/17/23 22:00 12/22/23 20:21 4 MG Midazolam HCl 50 ml @ 1 mls/hr Q24H IV 12/25/23 12:30 12/27/23 13:52 7 MLS/HR Fentanyl Citrate 250 ml @ 2.5 mls/hr Q24H IV 12/25/23 12:30 12/27/23 08:36 10 MLS/HR Hydromorphone HCl 0.25 mg Q4HPRN PRN IV 12/25/23 16:00 Nitroglycerin 0.4 mg Q5MINP PRN SL 12/25/23 16:00 Propofol 100 ml @ 2.253 mls/ hr Q24H IV 12/25/23 16:15 12/25/23 16:45 2.253 MLS/HR Vasopressin 20 units/Sodium Chloride 100 ml @ 9 mls/hr Q11H7M IV 12/25/23 17:15 12/27/23 12:08 9 MLS/HR Phenylephrine HCl 250 ml @ 30 mls/hr Q8H20M IV 12/25/23 17:15 12/26/23 00:42 48.75 MLS/HR Dopamine HCl/ Dextrose 250 ml @ 14.081 mls/ hr [id number] IV 12/25/23 18:30 Epinephrine HCl 250 ml @ 7.5 mls/hr Q24H IV 12/25/23 18:30 Meropenem 50 ml @ 17 mls/hr Q8HR IV 12/26/23 10:00 12/27/23 14:57 17 MLS/HR Vancomycin HCl 0 ml @ 0 mls/hr UD IV 12/25/23 20:45 Hydrocortisone Sodium Succinate 100 mg Q12HR IV 12/25/23 22:00 12/27/23 09:48 100 MG Pantoprazole Sodium 40 mg DAILY IV 12/26/23 10:00 12/27/23 09:47 40 MG Vancomycin HCl 200 ml @ 200 mls/hr Q12HR IV 12/26/23 10:30 12/27/23 11:16 200 MLS/HR Sodium Bicarbonate 75 ml/ Dextrose/Sodium Chloride 1,075 ml @ 125 mls/hr Q8H36M IV 12/26/23 11:45 12/27/23 17:14 125 MLS/HR Furosemide 40 mg BIDD IV 12/27/23 09:21 12/27/23 17:18 40 MG Ipratropium [place] 0.5 mg Q6HR NEB 12/27/23 18:00 Cancel Norepinephrine Bitartrate 32 mg/ Sodium Chloride 250 ml @ 0.938 mls/ hr Q24H IV 12/27/23 14:45 12/27/23 14:47 4.688 MLS/HR objective General: Well-built, afebrile, palor, mucosae are moist Cardiovascular: Regular S1 and S2. No murmurs, gallops or rubs. No JVD elevation. No pedal edema Respiratory: Normal B/L air entry on room air. Clear lung sounds on auscultation Abdomen: Soft, nontender, mildly tender, normoactive bowel sounds, no rebound tenderness, no organomegaly, no masses Genitourinary: Deferred MSK/skin: Mobilizes 4 limbs. Skin is dry and warm. No rash or bite dong seen in lower or upper extremities. Neurological: No motor, no sensitive deficits, normal speech. Pupils are isocoric and reactive. Psych/Mental Status: A/Ox4, mood is appropriate. laboratory and microbiology Laboratory Tests 12/27/23 14:08 12/27/23 03:10 Test 12/27/23 14:08 Range/Units Serum Glucose 216 H 74-106 mg/dL Problems(with codes): (1) Lactic acidosis (2) Elevated liver enzymes (3) Adenocarcinoma of sigmoid colon (4) Metastatic adenocarcinoma to liver (5) Sigmoid stricture (6) Abnormal finding on GI tract imaging (7) Heart failure with reduced ejection fraction (8) SIRS (systemic inflammatory response syndrome) (9) Liver disease Prognosis Plan Continue IV antibiotics NPO ; IV PPI Ventilator support IV fluid hydration Monitor labs If prolonged intubation is expected patient may benefit from starting on IV Clinimix or TPN Prognosis remains guarded Dietary Evaluation Review Comments: 1) Advance pt diet when medically feasible to a Cardiac diet 2) Continue current plan of care Expected Outcomes/Goals: 1) F/U in 3-5 days Plan discussed with: Other (Dr Marco Tom) ROD TOM MD Dec 27, 2023 19:52
--- NOTE | 2023-12-27 21:12 | DVHPN2 ---
Progress Note Date Seen: Dec 27, 2023 Medical Necessity Reason Pt with a Central, PICC or Fol: No Objective vital signs Vital Sign Date Time Temp Pulse Resp B/P (MAP) Pulse Ox O2 Delivery O2 Flow Rate FiO2 12/27/23 20:00 65 20 Mechanical Ventilator+ 45 45 12/27/23 20:00 95 12/27/23 19:54 106/62 (77) 12/27/23 19:45 99.1 210.4 12/25/23 13:14 10.0 Total Intake and Output 12/26/23 12/26/23 12/27/23 15:00 23:00 07:00 Intake Total 1256.25 ml 1635.50 ml 1415.00 ml Output Total 500 ml 450 ml Balance 1256.25 ml 1135.50 ml 965.00 ml medications Current Medications Medications Dose Ordered Sig/Saige Route Start Time Stop Time Status Last Admin Dose Admin Sodium Chloride 10 ml Q8HR IV 12/17/23 22:00 12/27/23 14:47 10 ML Acetaminophen 325 mg Q4HP PRN PO 12/17/23 22:00 Acetaminophen/ Hydrocodone Bitart 1 tab Q4HP PRN PO 12/17/23 22:00 12/24/23 19:06 1 TAB Ondansetron HCl 4 mg Q4HP PRN IV 12/17/23 22:00 12/22/23 20:21 4 MG Midazolam HCl 50 ml @ 1 mls/hr Q24H IV 12/25/23 12:30 12/27/23 13:52 7 MLS/HR Fentanyl Citrate 250 ml @ 2.5 mls/hr Q24H IV 12/25/23 12:30 12/27/23 08:36 10 MLS/HR Hydromorphone HCl 0.25 mg Q4HPRN PRN IV 12/25/23 16:00 Nitroglycerin 0.4 mg Q5MINP PRN SL 12/25/23 16:00 Propofol 100 ml @ 2.253 mls/ hr Q24H IV 12/25/23 16:15 12/25/23 16:45 2.253 MLS/HR Vasopressin 20 units/Sodium Chloride 100 ml @ 9 mls/hr Q11H7M IV 12/25/23 17:15 12/27/23 12:08 9 MLS/HR Phenylephrine HCl 250 ml @ 30 mls/hr Q8H20M IV 12/25/23 17:15 12/26/23 00:42 48.75 MLS/HR Dopamine HCl/ Dextrose 250 ml @ 14.081 mls/ hr [id number] IV 12/25/23 18:30 Epinephrine HCl 250 ml @ 7.5 mls/hr Q24H IV 12/25/23 18:30 Meropenem 50 ml @ 17 mls/hr Q8HR IV 12/26/23 10:00 12/27/23 14:57 17 MLS/HR Vancomycin HCl 0 ml @ 0 mls/hr UD IV 12/25/23 20:45 Hydrocortisone Sodium Succinate 100 mg Q12HR IV 12/25/23 22:00 12/27/23 09:48 100 MG Pantoprazole Sodium 40 mg DAILY IV 12/26/23 10:00 12/27/23 09:47 40 MG Vancomycin HCl 200 ml @ 200 mls/hr Q12HR IV 12/26/23 10:30 12/27/23 11:16 200 MLS/HR Sodium Bicarbonate 75 ml/ Dextrose/Sodium Chloride 1,075 ml @ 125 mls/hr Q8H36M IV 12/26/23 11:45 12/27/23 17:14 125 MLS/HR Furosemide 40 mg BIDD IV 12/27/23 09:21 12/27/23 17:18 40 MG Ipratropium [place] 0.5 mg Q6HR NEB 12/27/23 18:00 Cancel Norepinephrine Bitartrate 32 mg/ Sodium Chloride 250 ml @ 0.938 mls/ hr Q24H IV 12/27/23 14:45 12/27/23 14:47 4.688 MLS/HR laboratory and microbiology Laboratory Tests 12/27/23 14:08 12/27/23 03:10 Test 12/27/23 14:08 Range/Units Serum Glucose 216 H 74-106 mg/dL Microbiology Date/Time Source Procedure Growth Status 12/26/23 02:03 Blood Blood Culture - Preliminary NO GROWTH AFTER 24 HOURS OF INCUBATION. Resulted 12/26/23 01:30 Voided Urine Urine Culture - Preliminary Resulted 12/25/23 16:11 Nose MRSA Screen - Final Complete 12/25/23 13:36 Sputum Gram Stain - Final Complete 12/25/23 13:36 Respiratory Culture - Final Enterobacter cloacae Complete 12/18/23 13:03 Stool Stool Culture - Final Complete 12/18/23 13:03 Stool Shiga Toxin I & II - Final Complete Problem List/Assessment/Plan Problem List/Assessment/Plan INTUBATED HEMODYNAMICALLY LABILE ON VASOPRESSOR SUPPORT BUT LESS H/H STABLE NO ACTIVE BLEED ABD SOFT DISTENDED NO BM LACTATE UP WBC UP URINE OUTPUT BETTER ON LASIX NEPHROLOGY EVAL ONGOING CONTINUE CLOSE OBSERVATION SUPPORTIVE CARE CT SCAN ABD PELVIS Plan discussed with: Other My Orders My Orders Orders - NEGIN BUCKLEY MD Procedure Category Date Status Time Ct Ab Pel Wo Con-No CT 12/27/23 Resulted Oral Or Iv 12:07 Dietary Evaluation Review Comments: 1) Advance pt diet when medically feasible to a Cardiac diet 2) Continue current plan of care Expected Outcomes/Goals: 1) F/U in 3-5 days NEGIN BUCKLEY MD Dec 27, 2023 21:12
[2023-12-28] VITALS (107 sets, daily range): BP systolic 71–163; BP diastolic 51–103; PULSE 59–93; RESP 20–22; TEMP 98.4–99.3; O2SAT 88–99
[2023-12-28] MEDS: SODIUM BICARB 8.4% 50Meq/50ml SYR Vial IV ONE (02:02)
[2023-12-28 04:04] LABS: Basophils # (auto) 0.1 10 ^3/uL (0-0.2); Eosinophils # (auto) 0 10 ^3/uL (0-0.8); Lymphocytes # (auto) 0.5 10 ^3/uL (0.4-5.4); Monocytes # (auto) 1.1 10 ^3/uL (0-1.3)
[2023-12-28 04:05] LABS: Basophils % (auto) 0.4 % (0.0-2.0); Hematocrit 31.5 % (36.0-46.0); Hemoglobin 10.3 g/dL (12.2-16.2); Lymphocytes % (auto) 2.8 % (10.0-50.0); Mean Corpuscular Hemoglobin 25.5 pg (28.0-32.0); Mean Corpuscular Hgb Conc. 32.8 g/dL (32.0-36.0); Mean Corpuscular Volume 77.7 fL (80.0-100.0); Monocytes % (auto) 6.4 % (0.0-12.0); Neutrophils # (auto) 15.6 10 ^3/uL (1.6-8.6); Neutrophils % (auto) 90.4 % (37.0-80.0); Platelet Count (auto) 300 10^3/uL (140-450); Red Blood Cells 4.06 10^6/uL (4.0-5.20); White Blood Cell 17.3 10^3/uL (4.4-10.8)
[2023-12-28 04:34] LABS: Red Cell Distribution Width 21.9 % (11.8-14.3)
[2023-12-28 08:55] LABS: Base Excess -2.6 mmol/L (-2.0-3.0)
[2023-12-28] MEDS: MAGNESIUM SULFATE 1GM/100ML 100 ML IV SCH (10:21)
--- NOTE | 2023-12-28 10:50 | DVHPN2 ---
Progress Note Date Seen: Dec 28, 2023 Medical Necessity Reason Pt with a Central, PICC or Fol: No Subjective Review of Systems: RESPIRATORY:Abnormal Other Systems: Patient seen and examined by myself today on rounds, patient remained intubated on ventilator Objective vital signs Vital Sign Date Time Temp Pulse Resp B/P (MAP) Pulse Ox O2 Delivery O2 Flow Rate FiO2 12/28/23 09:36 65 20 106/61 (76) 93 45 12/28/23 08:00 Mechanical Ventilator+ 12/28/23 06:30 98.4 209.1 Total Intake and Output 12/27/23 12/27/23 12/28/23 15:00 23:00 07:00 Intake Total 1741.938 ml 1343.852 ml 918.10 ml Output Total 750 ml 720 ml Balance 1741.938 ml 593.852 ml 198.10 ml medications Current Medications Medications Dose Ordered Sig/Saige Route Start Time Stop Time Status Last Admin Dose Admin Sodium Chloride 10 ml Q8HR IV 12/17/23 22:00 12/27/23 22:20 10 ML Acetaminophen 325 mg Q4HP PRN PO 12/17/23 22:00 Acetaminophen/ Hydrocodone Bitart 1 tab Q4HP PRN PO 12/17/23 22:00 12/24/23 19:06 1 TAB Ondansetron HCl 4 mg Q4HP PRN IV 12/17/23 22:00 12/22/23 20:21 4 MG Midazolam HCl 50 ml @ 1 mls/hr Q24H IV 12/25/23 12:30 12/28/23 09:29 5 MLS/HR Fentanyl Citrate 250 ml @ 2.5 mls/hr Q24H IV 12/25/23 12:30 12/28/23 10:44 10 MLS/HR Hydromorphone HCl 0.25 mg Q4HPRN PRN IV 12/25/23 16:00 Nitroglycerin 0.4 mg Q5MINP PRN SL 12/25/23 16:00 Propofol 100 ml @ 2.253 mls/ hr Q24H IV 12/25/23 16:15 12/25/23 16:45 2.253 MLS/HR Vasopressin 20 units/Sodium Chloride 100 ml @ 9 mls/hr Q11H7M IV 12/25/23 17:15 12/28/23 00:58 9 MLS/HR Phenylephrine HCl 250 ml @ 30 mls/hr Q8H20M IV 12/25/23 17:15 12/26/23 00:42 48.75 MLS/HR Dopamine HCl/ Dextrose 250 ml @ 14.081 mls/ hr [id number] IV 12/25/23 18:30 Epinephrine HCl 250 ml @ 7.5 mls/hr Q24H IV 12/25/23 18:30 Meropenem 50 ml @ 17 mls/hr Q8HR IV 12/26/23 10:00 12/28/23 05:45 17 MLS/HR Vancomycin HCl 0 ml @ 0 mls/hr UD IV 12/25/23 20:45 Hydrocortisone Sodium Succinate 100 mg Q12HR IV 12/25/23 22:00 12/28/23 10:20 100 MG Pantoprazole Sodium 40 mg DAILY IV 12/26/23 10:00 12/28/23 10:20 40 MG Vancomycin HCl 200 ml @ 200 mls/hr Q12HR IV 12/26/23 10:30 12/27/23 22:19 200 MLS/HR Sodium Bicarbonate 75 ml/ Dextrose/Sodium Chloride 1,075 ml @ 125 mls/hr Q8H36M IV 12/26/23 11:45 12/28/23 02:02 125 MLS/HR Furosemide 40 mg BIDD IV 12/27/23 09:21 12/28/23 05:46 40 MG Ipratropium [place] 0.5 mg Q6HR NEB 12/27/23 18:00 Cancel Norepinephrine Bitartrate 32 mg/ Sodium Chloride 250 ml @ 0.938 mls/ hr Q24H IV 12/27/23 14:45 12/27/23 14:47 4.688 MLS/HR Magnesium Sulfate/ Dextrose 100 ml @ 100 mls/hr Q1HR IV 12/28/23 10:00 12/28/23 11:59 12/28/23 10:21 100 MLS/HR Potassium Chloride 100 ml @ 50 mls/hr Q2H IV 12/28/23 09:30 12/28/23 13:29 Examination: LUNGS:Normal, CVS:Normal, MSK:Abnormal laboratory and microbiology Laboratory Tests 12/28/23 03:22 12/27/23 14:08 Test 12/27/23 14:08 Range/Units Serum Glucose 216 H 74-106 mg/dL Microbiology Date/Time Source Procedure Growth Status 12/26/23 02:03 Blood Blood Culture - Preliminary NO GROWTH AFTER 48 HOURS OF INCUBATION. 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 Acute respiratory failure, intubated on ventilator Septic shock Metabolic acidosis Hyponatremia due excess H2O Transaminitis Microcytic anemia due to blood loss Iron deficiency Hypomagnesemia Recommendations Kidney function is improving Increased urine output Azar catheter Strict I&Os IVF D5 half NS with 75 mEq sodium bicarb at 100 25 cc/hour Furosemide 40 mg IV q.8 hours KCL replacement Magnesium sulfate 2 g IV piggyback IV antibiotics IV iron replacement IV pressors for blood pressure support We will continue to monitor Plan discussed with: Other (Nurse) My Orders My Orders Orders - SHAMEKA GONZALEZ MD Procedure Category Date Status Time Magnesium Sulfate PHA 12/28/23 In Process 1gm/100ml 10:00 Potassium Chl PHA 12/28/23 In Process 20meq/100ml 09:30 Dietary Evaluation Review Comments: 1) Advance pt diet when medically feasible to a Cardiac diet 2) Continue current plan of care Expected Outcomes/Goals: 1) F/U in 3-5 days SHAMEKA GONZALEZ MD Dec 28, 2023 10:50
[2023-12-28] MEDS ORDERED: TPN PER PHARMACY 0 ML IV SCH (12:00)
--- NOTE | 2023-12-28 12:14 | DVHPN2 ---
Progress Note Date Seen: Dec 28, 2023 Medical Necessity Reason Pt with a Central, PICC or Fol: No Objective vital signs Vital Sign Date Time Temp Pulse Resp B/P (MAP) Pulse Ox O2 Delivery O2 Flow Rate FiO2 12/28/23 11:09 64 20 105/60 (75) 92 45 12/28/23 10:45 99.0 210.2 12/28/23 10:00 Mechanical Ventilator+ Total Intake and Output 12/27/23 12/27/23 12/28/23 15:00 23:00 07:00 Intake Total 1741.938 ml 1343.852 ml 918.10 ml Output Total 750 ml 720 ml Balance 1741.938 ml 593.852 ml 198.10 ml medications Current Medications Medications Dose Ordered Sig/Saige Route Start Time Stop Time Status Last Admin Dose Admin Sodium Chloride 10 ml Q8HR IV 12/17/23 22:00 12/27/23 22:20 10 ML Acetaminophen 325 mg Q4HP PRN PO 12/17/23 22:00 Acetaminophen/ Hydrocodone Bitart 1 tab Q4HP PRN PO 12/17/23 22:00 12/24/23 19:06 1 TAB Ondansetron HCl 4 mg Q4HP PRN IV 12/17/23 22:00 12/22/23 20:21 4 MG Midazolam HCl 50 ml @ 1 mls/hr Q24H IV 12/25/23 12:30 12/28/23 09:29 5 MLS/HR Fentanyl Citrate 250 ml @ 2.5 mls/hr Q24H IV 12/25/23 12:30 12/28/23 10:44 10 MLS/HR Hydromorphone HCl 0.25 mg Q4HPRN PRN IV 12/25/23 16:00 Nitroglycerin 0.4 mg Q5MINP PRN SL 12/25/23 16:00 Propofol 100 ml @ 2.253 mls/ hr Q24H IV 12/25/23 16:15 12/25/23 16:45 2.253 MLS/HR Vasopressin 20 units/Sodium Chloride 100 ml @ 9 mls/hr Q11H7M IV 12/25/23 17:15 12/28/23 00:58 9 MLS/HR Phenylephrine HCl 250 ml @ 30 mls/hr Q8H20M IV 12/25/23 17:15 12/26/23 00:42 48.75 MLS/HR Dopamine HCl/ Dextrose 250 ml @ 14.081 mls/ hr [id number] IV 12/25/23 18:30 Epinephrine HCl 250 ml @ 7.5 mls/hr Q24H IV 12/25/23 18:30 Meropenem 50 ml @ 17 mls/hr Q8HR IV 12/26/23 10:00 12/28/23 05:45 17 MLS/HR Vancomycin HCl 0 ml @ 0 mls/hr UD IV 12/25/23 20:45 Pantoprazole Sodium 40 mg DAILY IV 12/26/23 10:00 12/28/23 10:20 40 MG Vancomycin HCl 200 ml @ 200 mls/hr Q12HR IV 12/26/23 10:30 12/28/23 11:33 200 MLS/HR Sodium Bicarbonate 75 ml/ Dextrose/Sodium Chloride 1,075 ml @ 125 mls/hr Q8H36M IV 12/26/23 11:45 12/28/23 02:02 125 MLS/HR Ipratropium [place] 0.5 mg Q6HR NEB 12/27/23 18:00 Cancel Norepinephrine Bitartrate 32 mg/ Sodium Chloride 250 ml @ 0.938 mls/ hr Q24H IV 12/27/23 14:45 12/27/23 14:47 4.688 MLS/HR Potassium Chloride 100 ml @ 50 mls/hr Q2H IV 12/28/23 09:30 12/28/23 13:29 Furosemide 40 mg TID IV 12/28/23 14:00 Amino Acids 0 ml @ 0 mls/hr PER PHARMACY IV 12/28/23 12:00 UNV laboratory and microbiology Laboratory Tests 12/28/23 03:22 12/27/23 14:08 Test 12/27/23 14:08 Range/Units Serum Glucose 216 H 74-106 mg/dL Microbiology Date/Time Source Procedure Growth Status 12/26/23 02:03 Blood Blood Culture - Preliminary NO GROWTH AFTER 48 HOURS OF INCUBATION. Resulted 12/26/23 01:30 Voided Urine Urine Culture - Final Complete 12/25/23 16:11 Nose MRSA Screen - Final Complete 12/25/23 13:36 Sputum Gram Stain - Final Complete 12/25/23 13:36 Respiratory Culture - Final Enterobacter cloacae Complete 12/18/23 13:03 Stool Stool Culture - Final Complete 12/18/23 13:03 Stool Shiga Toxin I & II - Final Complete Problem List/Assessment/Plan Problem List/Assessment/Plan INTUBATED HEMODYNAMICALLY LABILE ON VASOPRESSOR SUPPORT BUT LESS H/H STABLE NO ACTIVE BLEED ABD SOFT DISTENDED NO BM LACTATE UP WBC UP PROBABLY STEROID RELATED URINE OUTPUT BETTER ON LASIX NEPHROLOGY EVAL ONGOING CONTINUE CLOSE OBSERVATION SUPPORTIVE CARE CT SCAN ABD PELVIS NO INTRAABD COLLECTION HOLD STEROIDS NURSE AT BEDSIDE Plan discussed with: Other My Orders My Orders Orders - NEGIN BUCKLEY MD Procedure Category Date Status Time Tpn Per Pharmacy PHA 12/28/23 Logged 12:00 Dietary Evaluation Review Comments: 1) Advance pt diet when medically feasible to a Cardiac diet 2) Continue current plan of care Expected Outcomes/Goals: 1) F/U in 3-5 days NEGIN BUCKLEY MD Dec 28, 2023 12:14
[2023-12-28] MEDS: POTASSIUM CHL 20MEQ/100ML 100 ML IV SCH (12:23)
[2023-12-28] MEDS ORDERED: DEXTROSE (50%) 50ML SYRG IV SCH (13:00)
[2023-12-28] MEDS: FUROSEMIDE 40 MG/4 ML VIAL IV SCH (13:35)
--- NOTE | 2023-12-28 14:26 | DVHPN2 ---
Assessment/Plan Assessment/Plan 63-year-old female with heart failure with reduced ejection fraction status post ICD, CAD status post RYAN x4 February 05, 2018, hyperlipidemia, recurrent UTI, pyelonephritis, hypertension admitted for abdominal pain. Found to have metastatic colon cancer, status post left colectomy, with difficulty extubating and taking patient off pressors. Total critical care time spent on this patient more than 61 minutes including evaluation, chart review, formulating plan and communication with team, excluding any procedures Physical exam Intubated, mechanically ventilated PERRLA JVD to jaw Mechanical breath sounds S1-S2 regular rate and rhythm no murmur Abdomen with binder Trace lower extremity edema Lab Leukocytosis Microcytic anemia Thrombocytosis likely reactive Elevated lactate Low bicarb Hypochloremic hyponatremia Hyperglycemia Transaminitis worsening Assessment and plan mixed shock Acute hypoxic respiratory failure Chronic systolic heart failure Heart failure with reduced ejection fraction, 35% Metastatic colon cancer status post left colectomy Iron-deficiency anemia Possible shock liver Transaminitis secondary to hepatic metastasis KENNA secondary to shock Non-anion gap metabolic acidosis high Anion gap metabolic acidosis due to lactic acidosis Troponin elevation likely type 2 CO History of CAD status post RYAN x4 Continue on mechanical ventilation Continue sedation with Versed and fentanyl Continue pressors, Levophed and vasopressin, trend down to maintain map of above 60 Wide PPV, increase Lasix to 40 mg IV tid Concentrate drips Goal fluid balance 0 to -500 Continue with meropenem Surgery consult appreciated Continue with sodium bicarb drip, we will transition to bicarb push once lactate improves NG tube to low intermittent suction Line TLC Azar A line Diet NPO DVT prophylaxis SCD Condition critical Prognosis poor Plan discussed with: Other My Orders Orders - ROXY MARTINS MD Procedure Category Date Status Time Sodium Chl 0.9% PHA 12/27/23 In Process (Ns... 14:45 Date of Service: Dec 28, 2023 Billing Provider: ROXY MARTINS MD Common Visit Codes: [id number] INP/OBS CARE(HIGH), [id number] CARE 30-74 MIN ROXY MARTINS MD Dec 28, 2023 14:26
--- NOTE | 2023-12-28 16:22 | DVHPN2 ---
Progress Note - Dictate Date Seen: Dec 28, 2023 Medical Necessity Reason Pt with a Central, PICC or Fol: No Subjective Patient postop day 2 S/P left colon resection and removal of sigmoid/descending colon tumor Patient seen in ICU intubated sedated; FiO2 45% with a PEEP of five Leukocytosis and lactic acidosis is persistent Patient has moderate elevation in liver enzymes are rising up likely related to hypoxic liver injury and underlying liver metastatic disease Patient required to be on pressors however she is more stable this morning and her pressors are being tapered off Patient is of vasopressin and Levophed is being tapered down vital signs Vital Sign Date Time Temp Pulse Resp B/P (MAP) Pulse Ox O2 Delivery O2 Flow Rate FiO2 12/28/23 16:06 62 20 102/71 (81) 93 45 12/28/23 14:00 Mechanical Ventilator+ 12/28/23 13:00 99.0 210.2 Total Intake and Output 12/27/23 12/27/23 12/28/23 15:00 23:00 07:00 Intake Total 1741.938 ml 1343.852 ml 1087.85 ml Output Total 750 ml 720 ml Balance 1741.938 ml 593.852 ml 367.85 ml medications Current Medications Medications Dose Ordered Sig/Saige Route Start Time Stop Time Status Last Admin Dose Admin Sodium Chloride 10 ml Q8HR IV 12/17/23 22:00 12/28/23 13:34 10 ML Acetaminophen 325 mg Q4HP PRN PO 12/17/23 22:00 Hold Acetaminophen/ Hydrocodone Bitart 1 tab Q4HP PRN PO 12/17/23 22:00 Hold 12/24/23 19:06 1 TAB Ondansetron HCl 4 mg Q4HP PRN IV 12/17/23 22:00 12/22/23 20:21 4 MG Midazolam HCl 50 ml @ 1 mls/hr Q24H IV 12/25/23 12:30 12/28/23 13:35 5 MLS/HR Fentanyl Citrate 250 ml @ 2.5 mls/hr Q24H IV 12/25/23 12:30 12/28/23 10:44 10 MLS/HR Hydromorphone HCl 0.25 mg Q4HPRN PRN IV 12/25/23 16:00 Nitroglycerin 0.4 mg Q5MINP PRN SL 12/25/23 16:00 Propofol 100 ml @ 2.253 mls/ hr Q24H IV 12/25/23 16:15 12/25/23 16:45 2.253 MLS/HR Vasopressin 20 units/Sodium Chloride 100 ml @ 9 mls/hr Q11H7M IV 12/25/23 17:15 12/28/23 00:58 9 MLS/HR Phenylephrine HCl 250 ml @ 30 mls/hr Q8H20M IV 12/25/23 17:15 12/26/23 00:42 48.75 MLS/HR Dopamine HCl/ Dextrose 250 ml @ 14.081 mls/ hr [id number] IV 12/25/23 18:30 Epinephrine HCl 250 ml @ 7.5 mls/hr Q24H IV 12/25/23 18:30 Meropenem 50 ml @ 17 mls/hr Q8HR IV 12/26/23 10:00 12/28/23 14:31 17 MLS/HR Vancomycin HCl 0 ml @ 0 mls/hr UD IV 12/25/23 20:45 Pantoprazole Sodium 40 mg DAILY IV 12/26/23 10:00 12/28/23 10:20 40 MG Vancomycin HCl 200 ml @ 200 mls/hr Q12HR IV 12/26/23 10:30 12/28/23 11:33 200 MLS/HR Sodium Bicarbonate 75 ml/ Dextrose/Sodium Chloride 1,075 ml @ 125 mls/hr Q8H36M IV 12/26/23 11:45 12/28/23 02:02 125 MLS/HR Ipratropium [place] 0.5 mg Q6HR NEB 12/27/23 18:00 Cancel Norepinephrine Bitartrate 32 mg/ Sodium Chloride 250 ml @ 0.938 mls/ hr Q24H IV 12/27/23 14:45 12/28/23 16:04 4.688 MLS/HR Furosemide 40 mg TID IV 12/28/23 14:00 12/28/23 13:35 40 MG Amino Acids 0 ml @ 0 mls/hr PER PHARMACY IV 12/28/23 12:00 Diagnostic Test (Pha) 1 strip Q6HR 12/28/23 18:00 Insulin Human Regular FOLLOW SLIDING SCALE Q6HR SC 12/28/23 18:00 Dextrose 50 ml UD IV 12/28/23 13:00 Fat Emulsion Intravenous 50 ml/ Sodium Acetate 40 meq/Sodium Phosphate 20 meq/ Potassium Acetate 40 meq/Calcium Gluconate 4.65 meq/Magnesium Sulfate 8 meq/ Multivitamins 10 ml/Amino Acids/ Dextrose 917 ml @ 38 mls/hr Q24H8M IV 12/28/23 22:00 12/29/23 21:59 objective General: Well-built, afebrile, palor, mucosae are moist Cardiovascular: Regular S1 and S2. No murmurs, gallops or rubs. No JVD elevation. No pedal edema Respiratory: Normal B/L air entry on room air. Clear lung sounds on auscultation Abdomen: Soft, nontender, mildly tender, normoactive bowel sounds, no rebound tenderness, no organomegaly, no masses Genitourinary: Deferred MSK/skin: Mobilizes 4 limbs. Skin is dry and warm. No rash or bite dong seen in lower or upper extremities. Neurological: No motor, no sensitive deficits, normal speech. Pupils are isocoric and reactive. Psych/Mental Status: A/Ox4, mood is appropriate. laboratory and microbiology Laboratory Tests 12/28/23 03:22 12/27/23 14:08 Test 12/27/23 14:08 Range/Units Serum Glucose 216 H 74-106 mg/dL ABD PELVIC CT SCAN IMPRESSION: 1. Interval postsurgical change related to sigmoid colon resection. Diffuse bowel wall thickening of the large bowel in the pelvis, could represent postsurgical reactive change versus infectious or inflammatory etiology with underlying residual mass not completely excluded. No evidence of bowel obstruction. 2. Redemonstration of hepatic metastatic disease. 3. New small volume ascites and worsening diffuse mesenteric edema. 4. Trace bilateral pleural effusions. Problems(with codes): (1) Shock liver (2) Elevated liver enzymes (3) Lactic acidosis (4) Adenocarcinoma of sigmoid colon (5) Metastatic adenocarcinoma to liver (6) Sigmoid stricture (7) Abnormal finding on GI tract imaging (8) Heart failure with reduced ejection fraction (9) SIRS (systemic inflammatory response syndrome) Prognosis Plan Continue IV antibiotics NPO ; IV PPI Patient is on IV TPN Ventilator support IV fluid hydration Monitor labs Prognosis remains guarded Dietary Evaluation Review Comments: 1) Advance pt diet when medically feasible to a Cardiac diet 2) Continue current plan of care Expected Outcomes/Goals: 1) F/U in 3-5 days Plan discussed with: Other (ICU Nurse) ROD BUCKLEY MD Dec 28, 2023 16:22
[2023-12-28] MEDS: InsuLIN REG 1unit/0.01ml Soln (100units/ml) SC SCH (18:00)
[2023-12-28] MEDS: ACCU-CHEK COMFORT CURVE STRIP VI SCH (18:11)
--- NOTE | 2023-12-28 18:11 | DVHPN2 ---
Progress Note - Dictate Date Seen: Dec 28, 2023 Medical Necessity Reason Pt with a Central, PICC or Fol: Yes The following are medically ne: Davies Catheter Reason for davies catheter: Strict I&O Subjective Patient seen and examined at bedside. Sedated, intubated on mechanical ventilator. Overnight events reviewed. vital signs Vital Sign Date Time Temp Pulse Resp B/P (MAP) Pulse Ox O2 Delivery O2 Flow Rate FiO2 12/28/23 18:00 62 12/28/23 18:00 21 93 Mechanical Ventilator+ 45 45 12/28/23 16:06 102/71 (81) 12/28/23 14:45 99.1 210.4 Total Intake and Output 12/27/23 12/27/23 12/28/23 15:00 23:00 07:00 Intake Total 1741.938 ml 1343.852 ml 1087.85 ml Output Total 750 ml 720 ml Balance 1741.938 ml 593.852 ml 367.85 ml medications Current Medications Medications Dose Ordered Sig/Saige Route Start Time Stop Time Status Last Admin Dose Admin Sodium Chloride 10 ml Q8HR IV 12/17/23 22:00 12/28/23 13:34 10 ML Acetaminophen 325 mg Q4HP PRN PO 12/17/23 22:00 Hold Acetaminophen/ Hydrocodone Bitart 1 tab Q4HP PRN PO 12/17/23 22:00 Hold 12/24/23 19:06 1 TAB Ondansetron HCl 4 mg Q4HP PRN IV 12/17/23 22:00 12/22/23 20:21 4 MG Midazolam HCl 50 ml @ 1 mls/hr Q24H IV 12/25/23 12:30 12/28/23 13:35 5 MLS/HR Fentanyl Citrate 250 ml @ 2.5 mls/hr Q24H IV 12/25/23 12:30 12/28/23 10:44 10 MLS/HR Hydromorphone HCl 0.25 mg Q4HPRN PRN IV 12/25/23 16:00 Nitroglycerin 0.4 mg Q5MINP PRN SL 12/25/23 16:00 Propofol 100 ml @ 2.253 mls/ hr Q24H IV 12/25/23 16:15 12/25/23 16:45 2.253 MLS/HR Vasopressin 20 units/Sodium Chloride 100 ml @ 9 mls/hr Q11H7M IV 12/25/23 17:15 12/28/23 00:58 9 MLS/HR Phenylephrine HCl 250 ml @ 30 mls/hr Q8H20M IV 12/25/23 17:15 12/26/23 00:42 48.75 MLS/HR Dopamine HCl/ Dextrose 250 ml @ 14.081 mls/ hr [id number] IV 12/25/23 18:30 Epinephrine HCl 250 ml @ 7.5 mls/hr Q24H IV 12/25/23 18:30 Meropenem 50 ml @ 17 mls/hr Q8HR IV 12/26/23 10:00 12/28/23 14:31 17 MLS/HR Vancomycin HCl 0 ml @ 0 mls/hr UD IV 12/25/23 20:45 Pantoprazole Sodium 40 mg DAILY IV 12/26/23 10:00 12/28/23 10:20 40 MG Sodium Bicarbonate 75 ml/ Dextrose/Sodium Chloride 1,075 ml @ 125 mls/hr Q8H36M IV 12/26/23 11:45 12/28/23 02:02 125 MLS/HR Ipratropium [place] 0.5 mg Q6HR NEB 12/27/23 18:00 Cancel Norepinephrine Bitartrate 32 mg/ Sodium Chloride 250 ml @ 0.938 mls/ hr Q24H IV 12/27/23 14:45 12/28/23 16:04 4.688 MLS/HR Furosemide 40 mg TID IV 12/28/23 14:00 12/28/23 13:35 40 MG Amino Acids 0 ml @ 0 mls/hr PER PHARMACY IV 12/28/23 12:00 Diagnostic Test (Pha) 1 strip Q6HR 12/28/23 18:00 Insulin Human Regular FOLLOW SLIDING SCALE Q6HR SC 12/28/23 18:00 Dextrose 50 ml UD IV 12/28/23 13:00 Fat Emulsion Intravenous 50 ml/ Sodium Acetate 40 meq/Sodium Phosphate 20 meq/ Potassium Acetate 40 meq/Calcium Gluconate 4.65 meq/Magnesium Sulfate 8 meq/ Multivitamins 10 ml/Amino Acids/ Dextrose 917 ml @ 38 mls/hr Q24H8M IV 12/28/23 22:00 12/29/23 21:59 Vancomycin HCl 200 ml @ 200 mls/hr Q14H IV 12/29/23 01:00 objective Gen.: Patient lying in bed in medical ICU. Sedated, intubated on mechanical ventilator. Head: Normocephalic, atraumatic. Eyes: PERRLA. Ears: Normal external anatomy. Throat: Endotracheal tube and orogastric tube in place. Neck: Supple, trachea midline. Chest: Transmitted breath sounds bilaterally. Decreased air entry bilaterally. No wheezing. Bibasilar crackles. Cardiovascular: Positive S1, positive S2. Regular rate and rhythm. Abdomen: Positive bowel sounds in all 4 quadrants. Soft, nontender, nondistended. : Davies in place. Normal external genitalia. Rectal: Deferred. Skin: Warm, dry. Intact. Extremities: 2+ radial pulses bilaterally. No lower extremity edema. Neuro: Sedated. laboratory and microbiology Laboratory Tests 12/28/23 03:22 12/27/23 14:08 Test 12/27/23 14:08 Range/Units Serum Glucose 216 H 74-106 mg/dL Assessment/Plan Impression: Acute hypoxic respiratory failure On mechanical ventilator Sepsis due to liver abscess Possible MARCIANO in liver Chronic systolic heart failure CAD s/p PTCA with multiple stents and s/p defibrillator Distributive shock Metastatic colon cancer status post left colectomy Iron deficiency anemia Acute kidney injury due to shock Metabolic acidosis Lactic acidosis Events: Remains on vent support Currently on assist control with respiratory rate of 20, tidal volume 450, PEEP of 5, FiO2 of 45%. Taper FiO2 as tolerated Sedated on Versed and Fentanyl. On pressors for hemodynamic support. On Levophed at 10 micrograms/minute On vasopressin at 0.03 units/minute. Titrate to keep MAP above 65 mmHg/SBP above 90 mmHg. High pressor requirements Continue bicarb drip K, mag supplementation Monitor renal function Nephrology recs appreciated. Lactic acidosis - monitor LA. Labs and imaging reviewed. Rest of plan as noted below. Plan: s/p intubation on mechanical ventilator CXR image and report reviewed. Devices in place. Hypoinflation. ABG reviewed. Acidemia due to metabolic acidosis Aassist control with respiratory rate of 20, tidal volume 450, PEEP of 5, FiO2 of 45%. Titrate FIO2 to keep O2 saturation above 92%. VAP bundle Daily ABG and CXR while intubated. Sedate for ventilatory synchrony On pressors for hemodynamic support. On Levophed at 10 micrograms/minute On vasopressin at 0.03 units/minute. Titrate to keep MAP above 65 mmHg/SBP above 90 mmHg. Continue antibiotics. F/u cultures. Blood cultures no growth after 24 hours. Sputum culture notable for Enterobacter cloacae eight. Monitor renal function Monitor ins/outs Diurese with Lasix BID Monitor electrolytes. Supplement as necessary. Monitor lactic acid due to lactic acidosis. Nutritional support. Accucheks, ISS. GI/DVT prophylaxis. Condition: Critical Prognosis: Poor given multiple comorbidities. Rest of plan per hospitalist and other consultants. A total of 35 minutes of critical care time was spent reviewing the patient record, examining the patient, making a diagnostic and therapeutic plan, discussing this plan with the medical personnel, following up on diagnostic studies and following the patient for clinical stability excluding any and all procedures. At least 50% of this time was spent in direct, [id number] contact. Thank you Dr. Heath for allowing me to participate in this patient's care. Further recommendations will depend on patient's clinical course. Please do not hesitate to contact me if you have any questions or concerns. This medical document was created using an electronic medical record system with [employer] dictation system. Although this document has been carefully reviewed, there may still be some phonetic and typographical errors. These areas are purely typographical due to imperfections of the software programs, and do not reflect any compromise in the patient's medical care. Dietary Evaluation Review Comments: 1) Advance pt diet when medically feasible to a Cardiac diet 2) Continue current plan of care Expected Outcomes/Goals: 1) F/U in 3-5 days Plan discussed with: Other (WALKER Alejandra/RT Waddell) Critical Care Time(min): 35 DAYSI DYKES MD Dec 28, 2023 18:11
[2023-12-28] MEDS: TPN PER PHARMACY IV NR (20:48)
[2023-12-28 22:50] LABS: Lactic Acid w/Reflex 3.7 mmol/L (0.4-2.0)
[2023-12-29] VITALS (119 sets, daily range): BP systolic 76–154; BP diastolic 40–93; PULSE 59–85; RESP 12–20; TEMP 98.2–99.7; O2SAT 88–96
[2023-12-29] MEDS: VANCOMYCIN 1GM/250ML KIT 200 ML IV SCH (00:52)
[2023-12-29 03:24] LABS: Basophils # (auto) 0.1 10 ^3/uL (0-0.2); Basophils % (auto) 0.5 % (0.0-2.0); Eosinophils # (auto) 0 10 ^3/uL (0-0.8); Hemoglobin 10.2 g/dL (12.2-16.2); Lymphocytes # (auto) 0.5 10 ^3/uL (0.4-5.4); Lymphocytes % (auto) 2.7 % (10.0-50.0); Mean Corpuscular Hemoglobin 25.6 pg (28.0-32.0); Mean Corpuscular Hgb Conc. 32.7 g/dL (32.0-36.0); Mean Corpuscular Volume 78.1 fL (80.0-100.0); Monocytes # (auto) 1.2 10 ^3/uL (0-1.3); Monocytes % (auto) 6.9 % (0.0-12.0); Neutrophils % (auto) 89.9 % (37.0-80.0); Nucleated Red Blood Cells % 0.1 %; Platelet Count (auto) 210 10^3/uL (140-450); Red Blood Cells 3.97 10^6/uL (4.0-5.20); Red Cell Distribution Width 22.8 % (11.8-14.3); White Blood Cell 17.8 10^3/uL (4.4-10.8)
[2023-12-29 03:49] LABS: Alanine Aminotransferase 167 U/L (7-40); Albumin 2.5 g/dL (3.2-4.8); Alkaline Phosphatase 419 U/L (46-116); Anion Gap 8 (5-15); Aspartate Aminotransferase 611 U/L (13-40); BUN/Creatinine Ratio 25.5 (10.0-20.0); Blood Urea Nitrogen 12 mg/dL (9-23); Calcium 7.1 mg/dL (8.7-10.4); Carbon Dioxide 26 mmol/L (20-31); Chloride 105 mmol/L (98-107); Glucose 281 mg/dL (74-106); Magnesium 1.8 mg/dL (1.6-2.6); Phosphorus 1.2 mg/dL (2.4-5.1); Potassium 2.9 mmol/L (3.5-5.1); Sodium 139 mmol/L (136-145); Triglycerides 138 mg/dL (< 150)
[2023-12-29 03:50] LABS: Bilirubin, Total 1.3 mg/dL (0.2-1.0); Total Protein 5.3 g/dL (5.7-8.2)
[2023-12-29 04:11] LABS: Lactic Acid w/Reflex 3.8 mmol/L (0.4-2.0)
[2023-12-29 06:55] LABS: Base Excess 1.1 mmol/L (-2.0-3.0)
[2023-12-29] MEDS: POTASSIUM CHL 20MEQ/100ML 100 ML IV ONE ×3 (07:01→09:36)
--- NOTE | 2023-12-29 08:44 | DVH ---
CHEST RADIOGRAPH Indication:RESPIRATORY FAILURE Technique: Single frontal view of the chest was obtained Comparison: XY CHEST PORTABLE on DOS: 12/27/23, XY CHEST XRAY 1 VIEW on DOS: 12/26/23, XY CHEST PORTABL E on DOS: 12/26/23, XY CHEST PORTABLE on DOS: 12/25/23, XY CHEST XRAY 1 VIEW on DOS: 12/17/23, XY CHEST PORTABLE on DOS: 12/27/23 FINDINGS: Lines and Tubes: Endotracheal tube and enteric catheter and left chest wall AICD in satisfactory posi tion. Lungs: Low lung volumes. Pleura: No effusion. No pneumothorax. Cardiomediastinal contours: Unremarkable Bones: Unremarkable IMPRESSION: Lines and tubes in satisfactory position. No significant interval change.
[2023-12-29] MEDS: SODIUM BICARB 8.4% 50Meq/50ml SYR Vial IV ONE (09:36)
[2023-12-29] MEDS: POTASSIUM PHOSPHATE 22 MEQ in SODIUM CHL 0.9% 100 ML IV ONE ×2 (10:00→14:55)
--- NOTE | 2023-12-29 12:18 | DVHPN2 ---
Progress Note - Dictate Date Seen: Dec 29, 2023 Medical Necessity Reason Pt with a Central, PICC or Fol: Yes The following are medically ne: Davies Catheter Reason for davies catheter: Strict I&O vital signs Vital Sign Date Time Temp Pulse Resp B/P (MAP) Pulse Ox O2 Delivery O2 Flow Rate FiO2 12/29/23 11:50 129/82 12/29/23 11:32 60 12/29/23 11:32 55 12/29/23 11:32 20 95 Mechanical Ventilator+ 12/29/23 09:45 98.6 209.5 Total Intake and Output 12/28/23 12/28/23 12/29/23 15:00 23:00 07:00 Intake Total 1601.192 ml 1372.504 ml 1685.50 ml Output Total 1400 ml 1825 ml Balance 1601.192 ml -27.496 ml -139.50 ml medications Current Medications Medications Dose Ordered Sig/Saige Route Start Time Stop Time Status Last Admin Dose Admin Sodium Chloride 10 ml Q8HR IV 12/17/23 22:00 12/29/23 06:00 10 ML Acetaminophen 325 mg Q4HP PRN PO 12/17/23 22:00 Hold Acetaminophen/ Hydrocodone Bitart 1 tab Q4HP PRN PO 12/17/23 22:00 Hold 12/24/23 19:06 1 TAB Ondansetron HCl 4 mg Q4HP PRN IV 12/17/23 22:00 12/22/23 20:21 4 MG Midazolam HCl 50 ml @ 1 mls/hr Q24H IV 12/25/23 12:30 12/29/23 07:52 3 MLS/HR Fentanyl Citrate 250 ml @ 2.5 mls/hr Q24H IV 12/25/23 12:30 12/29/23 07:53 7.5 MLS/HR Hydromorphone HCl 0.25 mg Q4HPRN PRN IV 12/25/23 16:00 Nitroglycerin 0.4 mg Q5MINP PRN SL 12/25/23 16:00 Propofol 100 ml @ 2.253 mls/ hr Q24H IV 12/25/23 16:15 12/25/23 16:45 2.253 MLS/HR Vasopressin 20 units/Sodium Chloride 100 ml @ 9 mls/hr Q11H7M IV 12/25/23 17:15 12/29/23 11:50 9 MLS/HR Phenylephrine HCl 250 ml @ 30 mls/hr Q8H20M IV 12/25/23 17:15 12/26/23 00:42 48.75 MLS/HR Epinephrine HCl 250 ml @ 7.5 mls/hr Q24H IV 12/25/23 18:30 Meropenem 50 ml @ 17 mls/hr Q8HR IV 12/26/23 10:00 12/29/23 05:54 17 MLS/HR Pantoprazole Sodium 40 mg DAILY IV 12/26/23 10:00 12/29/23 09:12 40 MG Ipratropium [place] 0.5 mg Q6HR NEB 12/27/23 18:00 Cancel Norepinephrine Bitartrate 32 mg/ Sodium Chloride 250 ml @ 0.938 mls/ hr Q24H IV 12/27/23 14:45 12/28/23 16:04 4.688 MLS/HR Furosemide 40 mg TID IV 12/28/23 14:00 12/28/23 22:14 40 MG Amino Acids 0 ml @ 0 mls/hr PER PHARMACY IV 12/28/23 12:00 Diagnostic Test (Pha) 1 strip Q6HR 12/28/23 18:00 12/29/23 06:00 1 STRIP Insulin Human Regular FOLLOW SLIDING SCALE Q6HR SC 12/28/23 18:00 12/29/23 06:03 12 UNITS Dextrose 50 ml UD IV 12/28/23 13:00 Fat Emulsion Intravenous 50 ml/ Sodium Acetate 40 meq/Sodium Phosphate 20 meq/ Potassium Acetate 40 meq/Calcium Gluconate 4.65 meq/Magnesium Sulfate 8 meq/ Multivitamins 10 ml/Amino Acids/ Dextrose 917 ml @ 38 mls/hr Q24H8M IV 12/28/23 22:00 12/29/23 21:59 12/28/23 20:48 38 MLS/HR Fat Emulsion Intravenous 50 ml/ Sodium Phosphate 34 meq/Potassium Chloride 40 meq/ Potassium Acetate 40 meq/Calcium Gluconate 4.65 meq/Magnesium Sulfate 16 meq/ Multivitamins 10 ml/Insulin Human Regular 8 units/ Amino Acids/ Dextrose 1,022.58 ml @ 42 mls/hr [id number] IV 12/29/23 22:00 12/30/23 21:59 laboratory and microbiology Laboratory Tests 12/29/23 03:06 Test 12/29/23 03:06 Range/Units Serum Glucose 281 H 74-106 mg/dL Assessment/Plan Acute kidney injury due to hemodynamic mediated 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 Acute respiratory failure, intubated on ventilator Septic shock Metabolic acidosis Hyponatremia due excess H2O Transaminitis Microcytic anemia due to blood loss Iron deficiency Hypomagnesemia Kidney function is improving Increased urine output; hypervolemic exam goal negative balance Davies catheter Strict I&Os Furosemide 40 mg IV q.8 hours KCL replacement Magnesium sulfate 2 g IV piggyback IV antibiotics IV iron replacement Dietary Evaluation Review Comments: 1) Advance pt diet when medically feasible to a Cardiac diet 2) Continue current plan of care Expected Outcomes/Goals: 1) F/U in 3-5 days Plan discussed with: MACI Arreola MD Dec 29, 2023 12:18
[2023-12-29] MEDS: INSULIN LANTUS (GLARGINE) 1 /0.01ml (100units/ml) SC SCH (12:32)
[2023-12-29] MEDS: ENOXAPARIN SOD 40 MG/0.4 ML SYRINGE SC SCH (12:34)
[2023-12-29 13:35] LABS: Base Excess 1.3 mmol/L (-2.0-3.0)
--- NOTE | 2023-12-29 14:45 | DVHPNRES ---
Progress Note Date Seen: Dec 29, 2023 Resident Creating Document: ABELINO HUFF RESIDENT Medical Necessity Reason Pt with a Central, PICC or Fol: Yes The following are medically ne: Davies Catheter Reason for davies catheter: Strict I&O Subjective Review of Systems A 63-year-old female patient with PMHx of systolic heart failure status post Medtronic ICD placement -last EF 35% in September2023, CAD status post 4 RYAN in January 2018 , dyslipidemia, recurrent UTIs and pyelonephritis for the past 4 months, hypertension and internal hemorrhoids presented to the ER with a chief complaint of suprapubic abdominal pain and constipation. Patient recently visited [facility] in August this year with her when she went to the [place] barefoot and had bite dong all over the body, following which she has been getting recurrent UTIs and pyelonephritis starting September, also reports dry cough since the visit. She reports that the abdominal pain started 12/10 and is associated with tenesmus, she only passes small pellet-like stools associated with mucus and a lot of flatus. Also reports history of internal hemorrhoids and that she is experiencing bright red bleed per rectum for the past few days. She denies lifetime history of colonoscopy/endoscopy. Reports nausea, chills on and off but no fever. Denies lifetime history of STI, is monogamous with the . Her did not get any symptoms after the trip. PCP Jodie Rico Sales Effectiveness Manager: Slava Calibration Checker Dr Schrader Past surgical history; Partial hysterectomy Family history: Unremarkable Social history: Lives with , denies smoking, drank heavily during the vacation - quit since, denies illicit drug 12/17 - Patient seen and examined in bed [address]. reports no acute distress, went to have a bowel movement but only passed gas/mucus and a small stool. She has laboratory reports with her from the past, shows transaminitis starting in 07/10. 12/18 - patient reported no active complaint, undergoing sigmoidoscopy today. Blood pressure is 89/50, IV NS bolus of 500 cc and 250 cc afterwards administered. Blood pressure did not responded to IV fluids. Scheduled for image guided liver biopsy on 12/21 by IR. 12/20 - patient feels fine. Tolerating clear liquid diet. Developing pitting edema, starting midodrine t.i.d. 12/21 - patient reports feeling fine, no acute complaint. Lower extremity pitting edema noticed on exam. Bilateral breath sounds are clear on auscultation. Underwent ultrasound-guided liver biopsy. Patient tolerated procedure well. Stress test is scheduled for tomorrow. NPO starting midnight. Cardiology discontinued midodrine. 12/22- patient reports not getting adequate sleep. Underwent stress test today, negative for ischemia, Large anterior anteroseptal and apical wall infarction without evidence of ischemia. Moderately severe reduced ejection fraction at 38%. 12/23 - no acute distress. Cardiology started Jardiance 10 mg daily increase the dose of Entresto to b.i.d.. Surgeon Dr. Tom - possible colectomy tomorrow, patient has moderate to high risk for colorectal surgery per Cardiology. 12/24 - patient is seen and examined at bedside. Reports no active complaint. Completed bowel prep. Underwent colectomy 12/24. 12/25 - shock is improving 2 pressors, severe metabolic acidosis, no need of reintervention today no changes: medically improving, going down on pressors, not ready for extubation yet Objective vital signs Vital Sign Date Time Temp Pulse Resp B/P (MAP) Pulse Ox O2 Delivery O2 Flow Rate FiO2 12/29/23 14:20 77 18 119/72 (88) 94 45 12/29/23 13:31 Mechanical Ventilator+ 12/29/23 13:00 99.1 210.4 Total Intake and Output 12/28/23 12/28/23 12/29/23 15:00 23:00 07:00 Intake Total 1601.192 ml 1372.504 ml 1685.50 ml Output Total 1400 ml 1825 ml Balance 1601.192 ml -27.496 ml -139.50 ml medications Current Medications Medications Dose Ordered Sig/Saige Route Start Time Stop Time Status Last Admin Dose Admin Sodium Chloride 10 ml Q8HR IV 12/17/23 22:00 12/29/23 06:00 10 ML Ondansetron HCl 4 mg Q4HP PRN IV 12/17/23 22:00 12/22/23 20:21 4 MG Midazolam HCl 50 ml @ 1 mls/hr Q24H IV 12/25/23 12:30 12/29/23 07:52 3 MLS/HR Fentanyl Citrate 250 ml @ 2.5 mls/hr Q24H IV 12/25/23 12:30 12/29/23 07:53 7.5 MLS/HR Hydromorphone HCl 0.25 mg Q4HPRN PRN IV 12/25/23 16:00 Nitroglycerin 0.4 mg Q5MINP PRN SL 12/25/23 16:00 Propofol 100 ml @ 2.253 mls/ hr Q24H IV 12/25/23 16:15 12/25/23 16:45 2.253 MLS/HR Vasopressin 20 units/Sodium Chloride 100 ml @ 9 mls/hr Q11H7M IV 12/25/23 17:15 12/29/23 11:50 9 MLS/HR Phenylephrine HCl 250 ml @ 30 mls/hr Q8H20M IV 12/25/23 17:15 12/26/23 00:42 48.75 MLS/HR Epinephrine HCl 250 ml @ 7.5 mls/hr Q24H IV 12/25/23 18:30 Meropenem 50 ml @ 17 mls/hr Q8HR IV 12/26/23 10:00 12/29/23 05:54 17 MLS/HR Pantoprazole Sodium 40 mg DAILY IV 12/26/23 10:00 12/29/23 09:12 40 MG Ipratropium [place] 0.5 mg Q6HR NEB 12/27/23 18:00 Cancel Norepinephrine Bitartrate 32 mg/ Sodium Chloride 250 ml @ 0.938 mls/ hr Q24H IV 12/27/23 14:45 12/28/23 16:04 4.688 MLS/HR Furosemide 40 mg TID IV 12/28/23 14:00 12/28/23 22:14 40 MG Amino Acids 0 ml @ 0 mls/hr PER PHARMACY IV 12/28/23 12:00 Diagnostic Test (Pha) 1 strip Q6HR 12/28/23 18:00 12/29/23 12:16 1 STRIP Insulin Human Regular FOLLOW SLIDING SCALE Q6HR SC 12/28/23 18:00 12/29/23 12:15 4 UNITS Dextrose 50 ml UD IV 12/28/23 13:00 Fat Emulsion Intravenous 50 ml/ Sodium Acetate 40 meq/Sodium Phosphate 20 meq/ Potassium Acetate 40 meq/Calcium Gluconate 4.65 meq/Magnesium Sulfate 8 meq/ Multivitamins 10 ml/Amino Acids/ Dextrose 917 ml @ 38 mls/hr Q24H8M IV 12/28/23 22:00 12/29/23 21:59 12/28/23 20:48 38 MLS/HR Fat Emulsion Intravenous 50 ml/ Sodium Phosphate 34 meq/Potassium Chloride 40 meq/ Potassium Acetate 40 meq/Calcium Gluconate 4.65 meq/Magnesium Sulfate 16 meq/ Multivitamins 10 ml/Insulin Human Regular 8 units/ Amino Acids/ Dextrose 1,022.58 ml @ 42 mls/hr [id number] IV 12/29/23 22:00 12/30/23 21:59 Insulin Glargine 15 units DAILY@1000 SC 12/29/23 12:15 12/29/23 12:32 15 UNITS Enoxaparin Sodium 40 mg DAILY SC 12/29/23 12:15 12/29/23 12:34 40 MG Examination General: ETT palor, mucosae are moist Cardiovascular: Regular S1 and S2. No murmurs, gallops or rubs. No JVD elevation. No pedal edema Respiratory: Normal B/L air entry on room air. Clear lung sounds on auscultation Abdomen: Surgical wound clean, Soft, nontender, mildly tender, normoactive bowel sounds, no rebound tenderness, no organomegaly, no masses MSK/skin: Skin is dry and warm. No rash or bite dong seen in lower or upper extremities. laboratory and microbiology Laboratory Tests 12/29/23 03:06 Test 12/29/23 03:06 Range/Units Serum Glucose 281 H 74-106 mg/dL Microbiology Date/Time Source Procedure Growth Status 12/26/23 02:03 Blood Blood Culture - Preliminary NO GROWTH AFTER 72 HOURS OF INCUBATION. Resulted 12/26/23 01:30 Voided Urine Urine Culture - Final Complete 12/25/23 16:11 Nose MRSA Screen - Final Complete 12/25/23 13:36 Sputum Gram Stain - Final Complete 12/25/23 13:36 Respiratory Culture - Final Enterobacter cloacae Complete 12/18/23 13:03 Stool Stool Culture - Final Complete 12/18/23 13:03 Stool Shiga Toxin I & II - Final Complete Problem List/Assessment/Plan Problem List/Assessment/Plan NEUROLOGY RASS -4 Pt is on versed and fentanyl CARDIOLOGY Distributive/ vasodilatory shock secondary to metastatic sigmoid adenocarcinoma status post left colon resection with primary anastomosis 11/7 - intubated and mechanically ventilated 12/24 Pt is on levophed 10 shock is improving History of CAD status post PTCA with 4 stents in January 2018 at [facility] Chronic systolic heart failure status post Medtronic ICD - NSTEMI II Echocardiogram showed moderately dilated left ventricular. Severely reduced left ventricular systolic function with estimated ejection fraction of 35%. There is anterior anteroapical wall akinesia. EKG completed, reviewed - no ST changes. Cardiology consultation - underwent stress test 12/22 which showed large anterior anteroseptal and apical wall infarction without evidence of ischemia. Moderately severe reduced ejection fraction at 38%. Troponin 48, 42 downtrending Hold on Entresto 24/26 mg b.i.d., Jardiance 10 mg daily per cardiology RESPIRATORY Acute respiratory failure due to Distributive/ vasodilatory shock secondary to status post left colon resection Due to the need of pressors at the time of surgery, patient was not extubated in the OR decrease RR to 16 Xray no consolidations at the time sputum positive Enterobacter cloacae No consolidation at this time Pt is on meropenem GI s/p left colectomy 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 Tom - underwent left colon resection with primary anastomosis on 12/24. Patient required pressor support. New CT scan didnt show dehiscence or abscess Patient underwent US-guided right hepatic lobe mass single kwon core obtained 12/21. Pathology results pending. CT abdomen completed with contrast shows a 6 cm segment of the sigmoid colon demonstrating irregular wall thickening suspicious for primary colon malignancy. GI consulted - Flexible sigmoidoscopy with biopsy identified circumferential polypoid ulcerated inflamed and partially obstructing distal descending colon mass close to the proximal sigmoid at about 45-50 cm above the anal verge. 1+ internal hemorrhoids. She denies lifetime history of colonoscopy/endoscopy. Recent travel history to [facility]. H&H 9.3/28.8, hematocrit 77 - Iron panel remarkable for low iron/low % saturation/normal TIBC Tumor markers CEA 326, AFP 2 Transaminitis secondary to metastatic colon cancer CT scan abdomen with contrast shows enlarged liver with numerous poorly enhancing hepatic lesions with the larger lesions measuring greater than 12 cm. Suspicious for metastatic lesions. Liver ultrasound completed [id number] left liver lobe soft tissue mass tried hepatomegaly with increased hepatic echogenicity seen. Blood alcohol level <3 /RENAL KENNA due to shock resolving severe metabolic acidosis non anion gap resolved Low urinary output Nephrology on board Furosemide 40 mg IV q.day Case discussed with Dr Hall Time spent in critical care 76 min Full code Plan discussed with: Patient, Other (rn) Dietary Evaluation Review Comments: 1) Advance pt diet when medically feasible to a Cardiac diet 2) Continue current plan of care Expected Outcomes/Goals: 1) F/U in 3-5 days Date of Service: Dec 29, 2023 Billing Provider: LEO HALL MD Common Visit Codes: [id number] CARE 30-74 MIN ABELINO HUFF RESIDENT Dec 29, 2023 14:45 LEO HALL MD Dec 30, 2023 13:56
--- NOTE | 2023-12-29 16:21 | DVHPN2 ---
Progress Note Date Seen: Dec 29, 2023 Medical Necessity Reason Pt with a Central, PICC or Fol: Yes The following are medically ne: Davies Catheter Reason for davies catheter: Strict I&O Objective vital signs Vital Sign Date Time Temp Pulse Resp B/P (MAP) Pulse Ox O2 Delivery O2 Flow Rate FiO2 12/29/23 16:00 99.5 76 15 112/73 (86) 211.1 12/29/23 15:54 95 45 12/29/23 15:36 Mechanical Ventilator+ Total Intake and Output 12/28/23 12/28/23 12/29/23 15:00 23:00 07:00 Intake Total 1601.192 ml 1372.504 ml 1685.50 ml Output Total 1400 ml 1825 ml Balance 1601.192 ml -27.496 ml -139.50 ml medications Current Medications Medications Dose Ordered Sig/Saige Route Start Time Stop Time Status Last Admin Dose Admin Sodium Chloride 10 ml Q8HR IV 12/17/23 22:00 12/29/23 14:00 10 ML Ondansetron HCl 4 mg Q4HP PRN IV 12/17/23 22:00 12/22/23 20:21 4 MG Midazolam HCl 50 ml @ 1 mls/hr Q24H IV 12/25/23 12:30 12/29/23 07:52 3 MLS/HR Fentanyl Citrate 250 ml @ 2.5 mls/hr Q24H IV 12/25/23 12:30 12/29/23 07:53 7.5 MLS/HR Hydromorphone HCl 0.25 mg Q4HPRN PRN IV 12/25/23 16:00 Nitroglycerin 0.4 mg Q5MINP PRN SL 12/25/23 16:00 Propofol 100 ml @ 2.253 mls/ hr Q24H IV 12/25/23 16:15 12/25/23 16:45 2.253 MLS/HR Vasopressin 20 units/Sodium Chloride 100 ml @ 9 mls/hr Q11H7M IV 12/25/23 17:15 12/29/23 11:50 9 MLS/HR Phenylephrine HCl 250 ml @ 30 mls/hr Q8H20M IV 12/25/23 17:15 12/26/23 00:42 48.75 MLS/HR Epinephrine HCl 250 ml @ 7.5 mls/hr Q24H IV 12/25/23 18:30 Meropenem 50 ml @ 17 mls/hr Q8HR IV 12/26/23 10:00 12/29/23 14:58 17 MLS/HR Pantoprazole Sodium 40 mg DAILY IV 12/26/23 10:00 12/29/23 09:12 40 MG Ipratropium [place] 0.5 mg Q6HR NEB 12/27/23 18:00 Cancel Norepinephrine Bitartrate 32 mg/ Sodium Chloride 250 ml @ 0.938 mls/ hr Q24H IV 12/27/23 14:45 12/28/23 16:04 4.688 MLS/HR Furosemide 40 mg TID IV 12/28/23 14:00 12/29/23 14:59 40 MG Amino Acids 0 ml @ 0 mls/hr PER PHARMACY IV 12/28/23 12:00 Diagnostic Test (Pha) 1 strip Q6HR 12/28/23 18:00 12/29/23 12:16 1 STRIP Insulin Human Regular FOLLOW SLIDING SCALE Q6HR SC 12/28/23 18:00 12/29/23 12:15 4 UNITS Dextrose 50 ml UD IV 12/28/23 13:00 Fat Emulsion Intravenous 50 ml/ Sodium Acetate 40 meq/Sodium Phosphate 20 meq/ Potassium Acetate 40 meq/Calcium Gluconate 4.65 meq/Magnesium Sulfate 8 meq/ Multivitamins 10 ml/Amino Acids/ Dextrose 917 ml @ 38 mls/hr Q24H8M IV 12/28/23 22:00 12/29/23 21:59 12/28/23 20:48 38 MLS/HR Fat Emulsion Intravenous 50 ml/ Sodium Phosphate 34 meq/Potassium Chloride 40 meq/ Potassium Acetate 40 meq/Calcium Gluconate 4.65 meq/Magnesium Sulfate 16 meq/ Multivitamins 10 ml/Insulin Human Regular 8 units/ Amino Acids/ Dextrose 1,022.58 ml @ 42 mls/hr [id number] IV 12/29/23 22:00 12/30/23 21:59 Insulin Glargine 15 units DAILY@1000 SC 12/29/23 12:15 12/29/23 12:32 15 UNITS Enoxaparin Sodium 40 mg DAILY SC 12/29/23 12:15 12/29/23 12:34 40 MG laboratory and microbiology Laboratory Tests 12/29/23 03:06 Test 12/29/23 03:06 Range/Units Serum Glucose 281 H 74-106 mg/dL Microbiology Date/Time Source Procedure Growth Status 12/26/23 02:03 Blood Blood Culture - Preliminary NO GROWTH AFTER 72 HOURS OF INCUBATION. Resulted 12/26/23 01:30 Voided Urine Urine Culture - Final Complete 12/25/23 16:11 Nose MRSA Screen - Final Complete 12/25/23 13:36 Sputum Gram Stain - Final Complete 12/25/23 13:36 Respiratory Culture - Final Enterobacter cloacae Complete 12/18/23 13:03 Stool Stool Culture - Final Complete 12/18/23 13:03 Stool Shiga Toxin I & II - Final Complete Problem List/Assessment/Plan Problem List/Assessment/Plan INTUBATED HEMODYNAMICALLY BETTER OFF VASOPRESSOR SUPPORT H/H STABLE NO ACTIVE BLEED ABD SOFT DISTENDED NO BM LACTATE DOWN WBC UP PROBABLY STEROID RELATED URINE OUTPUT BETTER ON LASIX NEPHROLOGY EVAL ONGOING CONTINUE CLOSE OBSERVATION SUPPORTIVE CARE CT SCAN ABD PELVIS NO INTRAABD COLLECTION HOLD STEROIDS NURSE AT BEDSIDE Plan discussed with: Patient My Orders My Orders Orders - NEGIN BUCKLEY MD Procedure Category Date Status Time Amino Acid PHA 12/29/23 In Process Infusion... W/Fat 22:00 Comprehensive LAB 12/30/23 Verified Metabolic Panel 04:00 Magnesium LAB 12/30/23 Verified 04:00 Phosphorus LAB 12/30/23 Verified 04:00 Tpn Per Pharmacy [facility] 12/29/23 In Process 11:49 Potassium Phosphate PHA 12/29/23 In Process 14:30 Dietary Evaluation Review Comments: 1) Advance pt diet when medically feasible to a Cardiac diet 2) Continue current plan of care Expected Outcomes/Goals: 1) F/U in 3-5 days NEGIN BUCKLEY MD Dec 29, 2023 16:21
[2023-12-29] MEDS: TPN PER PHARMACY IV NR (21:54)
[2023-12-29] MEDS: FUROSEMIDE 20 MG/2 ML VIAL ONE (22:09)
[2023-12-30] VITALS (111 sets, daily range): BP systolic 95–141; BP diastolic 53–91; PULSE 60–94; RESP 12–24; TEMP 97.9–100.4; O2SAT 93–99
[2023-12-30 04:02] LABS: Basophils # (auto) 0.2 10 ^3/uL (0-0.2); Eosinophils # (auto) 0 10 ^3/uL (0-0.8); Hematocrit 33.5 % (36.0-46.0); Hemoglobin 10.8 g/dL (12.2-16.2); Lymphocytes # (auto) 0.8 10 ^3/uL (0.4-5.4); Lymphocytes % (auto) 4.1 % (10.0-50.0); Mean Corpuscular Hemoglobin 25.2 pg (28.0-32.0); Mean Corpuscular Hgb Conc. 32.3 g/dL (32.0-36.0); Mean Corpuscular Volume 78.1 fL (80.0-100.0); Monocytes % (auto) 10.3 % (0.0-12.0); Neutrophils # (auto) 16.6 10 ^3/uL (1.6-8.6); Neutrophils % (auto) 84.6 % (37.0-80.0); Nucleated Red Blood Cells % 0.1 %; Platelet Count (auto) 213 10^3/uL (140-450); Red Blood Cells 4.29 10^6/uL (4.0-5.20); White Blood Cell 19.6 10^3/uL (4.4-10.8)
[2023-12-30 04:04] LABS: Red Cell Distribution Width 23.5 % (11.8-14.3)
--- NOTE | 2023-12-30 04:08 | DVH ---
CHEST RADIOGRAPH Indication:dyspnea Technique: Single frontal view of the chest was obtained Comparison: XY CHEST PORTABLE on DOS: 12/29/23, XY CHEST PORTABLE on DOS: 12/27/23, XY CHEST XRAY 1 EW on DOS: 12/26/23, XY CHEST PORTABLE on DOS: 12/26/23, XY CHEST PORTABLE on DOS: 12/25/23, XY CHEST PO RTABLE on DOS: 12/29/23 FINDINGS: Lines and Tubes: Endotracheal tube and enteric catheter and left chest wall AICD in satisfactory posi tion. Lungs: Low lung volumes. Pleura: No effusion. No pneumothorax. Cardiomediastinal contours: Unremarkable Bones: Unremarkable IMPRESSION: Lines and tubes in satisfactory position. No significant interval change.
[2023-12-30 04:22] LABS: Alanine Aminotransferase 139 U/L (7-40); Albumin 2.7 g/dL (3.2-4.8); Alkaline Phosphatase 420 U/L (46-116); Anion Gap 4 (5-15); Aspartate Aminotransferase 446 U/L (13-40); BUN/Creatinine Ratio 45.9 (10.0-20.0); Bilirubin, Total 1.8 mg/dL (0.2-1.0); Blood Urea Nitrogen 17 mg/dL (9-23); Calcium 7.6 mg/dL (8.7-10.4); Carbon Dioxide 32 mmol/L (20-31); Chloride 107 mmol/L (98-107); Glucose 133 mg/dL (74-106); Magnesium 2.1 mg/dL (1.6-2.6); Phosphorus 1.7 mg/dL (2.4-5.1); Potassium 3.6 mmol/L (3.5-5.1); Sodium 143 mmol/L (136-145); Total Protein 5.6 g/dL (5.7-8.2)
[2023-12-30] MEDS: FUROSEMIDE 20 MG/2 ML VIAL ONE (06:12)
[2023-12-30 06:41] LABS: Base Excess 4.8 mmol/L (-2.0-3.0)
--- NOTE | 2023-12-30 08:50 | DVH ---
CLINICAL INFORMATION: 63 years old, Female; resp failure. TECHNIQUE: Single AP portable chest radiograph was obtained. COMPARISON: Chest radiograph from earlier the same day at 3:32 a.m.. FINDINGS: There has been slight retraction of the endotracheal tube compared to the prior radiographs, with the distal tip now approximately 2 cm above the level of the nany. Enteric tube reaches the stomach. R ight internal jugular central venous catheter terminates at the level of the right atrium, unchanged. Unchanged bilateral pleural effusions with overlying atelectasis and/or consolidation. No pneumothor ax. No other significant interval change. IMPRESSION: 1. Interval retraction of the endotracheal tube, now with the distal tip approximately 2 cm above the level of the nany. Stable satisfactory positioning of the enteric tube. 2. Right internal jugular central venous catheter distal tip reaches the right atrium, unchanged. 3. Additional stable findings as described above.
[2023-12-30] MEDS: POTASSIUM PHOSPHATE 44 MEQ in D5W 5% 250 ML IV ONE (11:00)
[2023-12-30] MEDS: ACETAMINOPHEN IV 1000 MG/100ML (10MG/ML) IV PRN (11:30)
--- NOTE | 2023-12-30 11:32 | DVHPN2 ---
Progress Note - Dictate Date Seen: Dec 30, 2023 Medical Necessity Reason Pt with a Central, PICC or Fol: Yes The following are medically ne: Davies Catheter Reason for davies catheter: Strict I&O vital signs Vital Sign Date Time Temp Pulse Resp B/P (MAP) Pulse Ox O2 Delivery O2 Flow Rate FiO2 12/30/23 11:18 81 16 121/77 (92) 94 45 12/30/23 09:39 Mechanical Ventilator+ 12/30/23 09:30 99.9 211.8 Total Intake and Output 12/29/23 12/29/23 12/30/23 15:00 23:00 07:00 Intake Total 643.128 ml 488.004 ml 508.110 ml Output Total 450 ml 990 ml Balance 643.128 ml 38.004 ml -481.890 ml medications Current Medications Medications Dose Ordered Sig/Saige Route Start Time Stop Time Status Last Admin Dose Admin Sodium Chloride 10 ml Q8HR IV 12/17/23 22:00 12/30/23 06:15 10 ML Ondansetron HCl 4 mg Q4HP PRN IV 12/17/23 22:00 12/22/23 20:21 4 MG Midazolam HCl 50 ml @ 1 mls/hr Q24H IV 12/25/23 12:30 12/29/23 07:52 3 MLS/HR Fentanyl Citrate 250 ml @ 2.5 mls/hr Q24H IV 12/25/23 12:30 12/29/23 07:53 7.5 MLS/HR Hydromorphone HCl 0.25 mg Q4HPRN PRN IV 12/25/23 16:00 Nitroglycerin 0.4 mg Q5MINP PRN SL 12/25/23 16:00 Propofol 100 ml @ 2.253 mls/ hr Q24H IV 12/25/23 16:15 12/25/23 16:45 2.253 MLS/HR Vasopressin 20 units/Sodium Chloride 100 ml @ 9 mls/hr Q11H7M IV 12/25/23 17:15 12/29/23 11:50 9 MLS/HR Phenylephrine HCl 250 ml @ 30 mls/hr Q8H20M IV 12/25/23 17:15 12/26/23 00:42 48.75 MLS/HR Epinephrine HCl 250 ml @ 7.5 mls/hr Q24H IV 12/25/23 18:30 Meropenem 50 ml @ 17 mls/hr Q8HR IV 12/26/23 10:00 12/30/23 06:14 17 MLS/HR Pantoprazole Sodium 40 mg DAILY IV 12/26/23 10:00 12/30/23 08:47 40 MG Ipratropium Pegram 0.5 mg Q6HR NEB 12/27/23 18:00 Cancel Norepinephrine Bitartrate 32 mg/ Sodium Chloride 250 ml @ 0.938 mls/ hr Q24H IV 12/27/23 14:45 12/29/23 21:10 4.688 MLS/HR Furosemide 40 mg TID IV 12/28/23 14:00 12/30/23 06:00 40 MG Amino Acids 0 ml @ 0 mls/hr PER PHARMACY IV 12/28/23 12:00 Diagnostic Test (Pha) 1 strip Q6HR 12/28/23 18:00 12/30/23 10:28 1 STRIP Insulin Human Regular FOLLOW SLIDING SCALE Q6HR SC 12/28/23 18:00 12/29/23 17:19 2 UNITS Dextrose 50 ml UD IV 12/28/23 13:00 Fat Emulsion Intravenous 50 ml/ Sodium Phosphate 34 meq/Potassium Chloride 40 meq/ Potassium Acetate 40 meq/Calcium Gluconate 4.65 meq/Magnesium Sulfate 16 meq/ Multivitamins 10 ml/Insulin Human Regular 8 units/ Amino Acids/ Dextrose 1,022.58 ml @ 42 mls/hr [id number] IV 12/29/23 22:00 12/30/23 21:59 12/29/23 21:54 42 MLS/HR Insulin Glargine 15 units DAILY@1000 SC 12/29/23 12:15 12/30/23 10:29 15 UNITS Enoxaparin Sodium 40 mg DAILY SC 12/29/23 12:15 12/30/23 08:47 40 MG Fat Emulsion Intravenous 100 ml/Potassium Chloride 40 meq/ Potassium Phosphate 33 meq/ Calcium Gluconate 4.65 meq/ Magnesium Sulfate 16 meq/ Multivitamins 10 ml/Chromium/ Copper/Manganese/ Zinc 1 ml/Amino Acids/Dextrose 1,152.5 ml @ 47 mls/hr [id number] IV 12/30/23 22:00 12/31/23 21:59 Acetaminophen 1,000 mg [id number] PRN IV 12/30/23 11:30 12/30/23 11:31 UNV objective Elderly white female Intubated Not on pressors Bilateral pitting edema Davies catheter laboratory and microbiology Laboratory Tests 12/30/23 03:31 Test 12/30/23 03:31 Range/Units Serum Glucose 133 H 74-106 mg/dL Assessment/Plan Acute kidney injury due to hemodynamic mediated 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
--- NOTE | 2023-12-30 11:39 | DVHPNRES ---
Progress Note Date Seen: Dec 30, 2023 Resident Creating Document: BAELINO HUFF RESIDENT Medical Necessity Reason Pt with a Central, PICC or Fol: Yes The following are medically ne: PICC Line, Davies Catheter Reason for davies catheter: Strict I&O Subjective Review of Systems A 63-year-old female patient with PMHx of systolic heart failure status post Medtronic ICD placement -last EF 35% in September2023, CAD status post 4 RYAN in January 2018 , dyslipidemia, recurrent UTIs and pyelonephritis for the past 4 months, hypertension and internal hemorrhoids presented to the ER with a chief complaint of suprapubic abdominal pain and constipation. Patient recently visited [facility] in August this year with her when she went to the [place] barefoot and had bite dong all over the body, following which she has been getting recurrent UTIs and pyelonephritis starting September, also reports dry cough since the visit. She reports that the abdominal pain started 12/10 and is associated with tenesmus, she only passes small pellet-like stools associated with mucus and a lot of flatus. Also reports history of internal hemorrhoids and that she is experiencing bright red bleed per rectum for the past few days. She denies lifetime history of colonoscopy/endoscopy. Reports nausea, chills on and off but no fever. Denies lifetime history of STI, is monogamous with the . Her did not get any symptoms after the trip. PCP Jodie [employer] Pilot: [employer] Dr Schrader Past surgical history; Partial hysterectomy Family history: Unremarkable Social history: Lives with , denies smoking, drank heavily during the vacation - quit since, denies illicit drug 12/17 - Patient seen and examined in bed [address]. reports no acute distress, went to have a bowel movement but only passed gas/mucus and a small stool. She has laboratory reports with her from the past, shows transaminitis starting in 07/10. 12/18 - patient reported no active complaint, undergoing sigmoidoscopy today. Blood pressure is 89/50, IV NS bolus of 500 cc and 250 cc afterwards administered. Blood pressure did not responded to IV fluids. Scheduled for image guided liver biopsy on 12/21 by IR. 12/20 - patient feels fine. Tolerating clear liquid diet. Developing pitting edema, starting midodrine t.i.d. 12/21 - patient reports feeling fine, no acute complaint. Lower extremity pitting edema noticed on exam. Bilateral breath sounds are clear on auscultation. Underwent ultrasound-guided liver biopsy. Patient tolerated procedure well. Stress test is scheduled for tomorrow. NPO starting midnight. Cardiology discontinued midodrine. 12/22- patient reports not getting adequate sleep. Underwent stress test today, negative for ischemia, Large anterior anteroseptal and apical wall infarction without evidence of ischemia. Moderately severe reduced ejection fraction at 38%. 12/23 - no acute distress. Cardiology started Jardiance 10 mg daily increase the dose of Entresto to b.i.d.. Surgeon Dr. Tom - possible colectomy tomorrow, patient has moderate to high risk for colorectal surgery per Cardiology. 12/24 - patient is seen and examined at bedside. Reports no active complaint. Completed bowel prep. Underwent colectomy 12/24. 12/25 - shock is improving 2 pressors, severe metabolic acidosis, no need of reintervention today no changes: medically improving, going down on pressors, not ready for extubation yet: ct scan with no dehiscence 12/29: mild fever, [place] cultures Objective vital signs Vital Sign Date Time Temp Pulse Resp B/P (MAP) Pulse Ox O2 Delivery O2 Flow Rate FiO2 12/30/23 11:18 81 16 121/77 (92) 94 45 12/30/23 09:39 Mechanical Ventilator+ 12/30/23 09:30 99.9 211.8 Total Intake and Output 12/29/23 12/29/23 12/30/23 15:00 23:00 07:00 Intake Total 643.128 ml 488.004 ml 508.110 ml Output Total 450 ml 990 ml Balance 643.128 ml 38.004 ml -481.890 ml medications Current Medications Medications Dose Ordered Sig/Saige Route Start Time Stop Time Status Last Admin Dose Admin Sodium Chloride 10 ml Q8HR IV 12/17/23 22:00 12/30/23 06:15 10 ML Ondansetron HCl 4 mg Q4HP PRN IV 12/17/23 22:00 12/22/23 20:21 4 MG Midazolam HCl 50 ml @ 1 mls/hr Q24H IV 12/25/23 12:30 12/29/23 07:52 3 MLS/HR Fentanyl Citrate 250 ml @ 2.5 mls/hr Q24H IV 12/25/23 12:30 12/29/23 07:53 7.5 MLS/HR Hydromorphone HCl 0.25 mg Q4HPRN PRN IV 12/25/23 16:00 Nitroglycerin 0.4 mg Q5MINP PRN SL 12/25/23 16:00 Propofol 100 ml @ 2.253 mls/ hr Q24H IV 12/25/23 16:15 12/25/23 16:45 2.253 MLS/HR Vasopressin 20 units/Sodium Chloride 100 ml @ 9 mls/hr Q11H7M IV 12/25/23 17:15 12/29/23 11:50 9 MLS/HR Phenylephrine HCl 250 ml @ 30 mls/hr Q8H20M IV 12/25/23 17:15 12/26/23 00:42 48.75 MLS/HR Epinephrine HCl 250 ml @ 7.5 mls/hr Q24H IV 12/25/23 18:30 Meropenem 50 ml @ 17 mls/hr Q8HR IV 12/26/23 10:00 12/30/23 06:14 17 MLS/HR Pantoprazole Sodium 40 mg DAILY IV 12/26/23 10:00 12/30/23 08:47 40 MG Ipratropium Bock 0.5 mg Q6HR NEB 12/27/23 18:00 Cancel Norepinephrine Bitartrate 32 mg/ Sodium Chloride 250 ml @ 0.938 mls/ hr Q24H IV 12/27/23 14:45 12/29/23 21:10 4.688 MLS/HR Furosemide 40 mg TID IV 12/28/23 14:00 12/30/23 06:00 40 MG Amino Acids 0 ml @ 0 mls/hr PER PHARMACY IV 12/28/23 12:00 Diagnostic Test (Pha) 1 strip Q6HR 12/28/23 18:00 12/30/23 10:28 1 STRIP Insulin Human Regular FOLLOW SLIDING SCALE Q6HR SC 12/28/23 18:00 12/29/23 17:19 2 UNITS Dextrose 50 ml UD IV 12/28/23 13:00 Fat Emulsion Intravenous 50 ml/ Sodium Phosphate 34 meq/Potassium Chloride 40 meq/ Potassium Acetate 40 meq/Calcium Gluconate 4.65 meq/Magnesium Sulfate 16 meq/ Multivitamins 10 ml/Insulin Human Regular 8 units/ Amino Acids/ Dextrose 1,022.58 ml @ 42 mls/hr [id number] IV 12/29/23 22:00 12/30/23 21:59 12/29/23 21:54 42 MLS/HR Insulin Glargine 15 units DAILY@1000 SC 12/29/23 12:15 12/30/23 10:29 15 UNITS Enoxaparin Sodium 40 mg DAILY SC 12/29/23 12:15 12/30/23 08:47 40 MG Fat Emulsion Intravenous 100 ml/Potassium Chloride 40 meq/ Potassium Phosphate 33 meq/ Calcium Gluconate 4.65 meq/ Magnesium Sulfate 16 meq/ Multivitamins 10 ml/Chromium/ Copper/Manganese/ Zinc 1 ml/Amino Acids/Dextrose 1,152.5 ml @ 47 mls/hr [id number] IV 12/30/23 22:00 12/31/23 21:59 Examination General: ETT palor, mucosae are moist Cardiovascular: Regular S1 and S2. No murmurs, gallops or rubs. No JVD elevation. No pedal edema Respiratory: Normal B/L air entry on room air. Clear lung sounds on auscultation Abdomen: Surgical wound clean, Soft, nontender, mildly tender, normoactive bowel sounds, no rebound tenderness, no organomegaly, no masses MSK/skin: Skin is dry and warm. No rash or bite dong seen in lower or upper extremities. laboratory and microbiology Laboratory Tests 12/30/23 03:31 Test 12/30/23 03:31 Range/Units Serum Glucose 133 H 74-106 mg/dL Microbiology Date/Time Source Procedure Growth Status 12/26/23 02:03 Blood Blood Culture - Preliminary NO GROWTH AFTER 72 HOURS OF INCUBATION. Resulted 12/26/23 01:30 Voided Urine Urine Culture - Final Complete 12/25/23 16:11 Nose MRSA Screen - Final Complete 12/25/23 13:36 Sputum Gram Stain - Final Complete 12/25/23 13:36 Respiratory Culture - Final Enterobacter cloacae Complete 12/18/23 13:03 Stool Stool Culture - Final Complete 12/18/23 13:03 Stool Shiga Toxin I & II - Final Complete Problem List/Assessment/Plan Problem List/Assessment/Plan NEUROLOGY RASS -4 Pt is on versed and fentanyl CARDIOLOGY Distributive/ vasodilatory shock secondary to metastatic sigmoid adenocarcinoma status post left colon resection with primary anastomosis 12/24 - intubated and mechanically ventilated 12/24 Pt is on levophed 10 , previously patient was on vasopressin, epinephrin and phenylephrine shock is improving mild fever today: pancultures History of CAD status post PTCA with 4 stents in January 2018 at [facility] Chronic systolic heart failure status post Medtronic ICD - NSTEMI II Echocardiogram showed moderately dilated left ventricular. Severely reduced left ventricular systolic function with estimated ejection fraction of 35%. There is anterior anteroapical wall akinesia. EKG completed, reviewed - no ST changes. Cardiology consultation - underwent stress test 12/22 which showed large anterior anteroseptal and apical wall infarction without evidence of ischemia. Moderately severe reduced ejection fraction at 38%. Troponin 48, 42 downtrending Hold on Entresto 24/26 mg b.i.d., Jardiance 10 mg daily per cardiology RESPIRATORY Acute respiratory failure due to Distributive/ vasodilatory shock secondary to status post left colon resection Due to the need of pressors at the time of surgery, patient was not extubated in the OR RR to 16 tidal volume 400 fio2 45 Xray no consolidations at the time, bilateral pleural effusion no consoldiation sputum positive Enterobacter cloacae No consolidation at this time Pt is on meropenem mild fever today: pancultures tylenol IV one dose GI s/p left colectomy 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 Tom - underwent left colon resection with primary anastomosis on 12/24. Patient required pressor support. [address] scan didnt show dehiscence or abscess Patient underwent US-guided right hepatic lobe mass single kwon core obtained 12/21. Pathology results pending. CT abdomen completed with contrast shows a 6 cm segment of the sigmoid colon demonstrating irregular wall thickening suspicious for primary colon malignancy. GI consulted - Flexible sigmoidoscopy with biopsy identified circumferential polypoid ulcerated inflamed and partially obstructing distal descending colon mass close to the proximal sigmoid at about 45-50 cm above the anal verge. 1+ internal hemorrhoids. She denies lifetime history of colonoscopy/endoscopy. Recent travel history to [facility]. H&H 9.3/28.8, hematocrit 77 - Iron panel remarkable for low iron/low % saturation/normal TIBC Tumor markers CEA 326, AFP 2 Transaminitis secondary to metastatic colon cancer CT scan abdomen with contrast shows enlarged liver with numerous poorly enhancing hepatic lesions with the larger lesions measuring greater than 12 cm. Suspicious for metastatic lesions. Liver ultrasound completed [id number] left liver lobe soft tissue mass tried hepatomegaly with increased hepatic echogenicity seen. Blood alcohol level <3 Pt is on TPN /RENAL KENNA due to shock resolving severe metabolic acidosis non anion gap resolved Low urinary output Nephrology on board Furosemide 40 mg IV TID urine culture negative Case discussed with Dr Hall Time spent in critical care 76 min Full code Plan discussed with: Spouse (rn), Other My Orders My Orders Orders - ABELINO HUFF RESIDENT Procedure Category Date Status Time Abg W/ Co-Ox RT 12/30/23 Logged 04:00 Chest Xray 1 View XY 12/30/23 Resulted 04:00 Ventilator Orders RT 12/30/23 Transmitted 11:15 Abg W/ Co-Ox RT 12/30/23 Logged 12:15 Blood Culture TONYA 12/30/23 Uncollected 11:16 Urine Bacterial TONYA 12/30/23 Uncollected Culture 11:16 Respiratory Culture TONYA 12/30/23 Uncollected W/ Gs 11:16 Ok To Change Davies ORDERS 12/30/23 Transmitted 11:16 Communication Order ORDERS 12/30/23 Transmitted 11:16 Ct Ab Pel Wo Con-No CT 12/30/23 Logged Oral Or Iv 11:16 Ventilator Orders RT 12/30/23 Transmitted 11:36 Dietary Evaluation Review Comments: 1) Advance pt diet when medically feasible to a Cardiac diet 2) Continue current plan of care Expected Outcomes/Goals: 1) F/U in 3-5 days Date of Service: Dec 30, 2023 Billing Provider: LEO HALL MD Common Visit Codes: [id number] CARE 30-74 MIN ABELINO HUFF RESIDENT Dec 30, 2023 11:39 LEO HALL MD Dec 31, 2023 13:26
--- NOTE | 2023-12-30 12:39 | DVH ---
CT ABDOMEN AND PELVIS WITHOUT CONTRAST CLINICAL HISTORY: fever sp colectomy TECHNIQUE: Multidetector CT of the abdomen was performed from lung bases to pubic symphysis. Imaging was performed without IV contrast. Axial, coronal and sagittal multiplanar reformats were obtained fr om the axial data set by the technologist. Radiation optimization: All CT scans at this facility use at least one of these dose optimization alan hniques: automated exposure control mA and/or kV adjustment per patient size (includes targeted exam s where dose is matched to clinical indication) or iterative reconstruction. Radiation Dose Information: CT Dose: CTDI volume is 24 mGy. Dose-length product is 1534 mGy*cm Comparison: CT CT AB PEL WO CON-NO ORAL OR IV on DOS: 12/27/23, CT CT AB PEL WITH IV CON ONLY on DOS: 12/18/23 FINDINGS: [Findings] Evaluation of the abdominal viscera is limited without intravenous contrast. The liver appears enlarged with numerous poorly defined hypodense masses likely metastatic lesions. There is an NG tube in the stomach which is decompressed. The gallbladder, pancreas, kidneys, adren al glands, and spleen appear within normal limits. There are edematous changes in the mesentery with small amount of perihepatic ascites. There is no fr ee intraperitoneal air. There is no gross evidence of abdominal lymphadenopathy. Again seen are postsurgical changes in the bowel with anastomotic sutures in the sigmoid colon. There is again thickened appearance of the bowel wall in the lower abdomen and pelvis which May relate to post treatment changes. There are no dilated small or large bowel loops. The abdominal aorta and IVC appear within normal limits. Bladder is decompressed with Azar catheter. There is free fluid in the pelvis. The uterus is likely surgically absent. There is a rectal tube in place. There is no gross evidence of a pelvic mass. There are small bilateral pleural effusions with likely atelectasis in the posterior lower lobes. There is diffuse anasarca in the soft tissues . There is no acute osseous abnormality. There are multilevel degenerative changes in the lumbar spine. IMPRESSION: 1. Redemonstrated are postsurgical changes in the bowel with anastomotic sutures in the sigmoid colon . There is again thickened appearance of the bowel in the lower abdomen and pelvis which May relate t o post treatment changes.. There is no evidence of bowel obstruction. 2. Liver is enlarged with numerous poorly defined hypodense masses likely metastatic lesions. 3. There is small amount of ascites and edema in the mesentery. There are small bilateral pleural eff usions. There is diffuse anasarca in the soft tissues. HS:Y
[2023-12-30 13:43] LABS: Base Excess 4.6 mmol/L (-2.0-3.0)
--- NOTE | 2023-12-30 17:54 | DVHPN2 ---
Progress Note Date Seen: Dec 30, 2023 Medical Necessity Reason Pt with a Central, PICC or Fol: Yes The following are medically ne: Davies Catheter Reason for davies catheter: Strict I&O Objective vital signs Vital Sign Date Time Temp Pulse Resp B/P (MAP) Pulse Ox O2 Delivery O2 Flow Rate FiO2 12/30/23 17:32 45 12/30/23 17:32 61 12/30/23 17:32 16 96 Mechanical Ventilator+ 12/30/23 16:28 104/60 (75) 12/30/23 14:30 99.5 211.1 Total Intake and Output 12/29/23 12/29/23 12/30/23 15:00 23:00 07:00 Intake Total 643.128 ml 488.004 ml 508.110 ml Output Total 450 ml 990 ml Balance 643.128 ml 38.004 ml -481.890 ml medications Current Medications Medications Dose Ordered Sig/Saige Route Start Time Stop Time Status Last Admin Dose Admin Sodium Chloride 10 ml Q8HR IV 12/17/23 22:00 12/30/23 14:00 10 ML Midazolam HCl 50 ml @ 1 mls/hr Q24H IV 12/25/23 12:30 12/29/23 07:52 3 MLS/HR Fentanyl Citrate 250 ml @ 2.5 mls/hr Q24H IV 12/25/23 12:30 12/29/23 07:53 7.5 MLS/HR Nitroglycerin 0.4 mg Q5MINP PRN SL 12/25/23 16:00 Propofol 100 ml @ 2.253 mls/ hr Q24H IV 12/25/23 16:15 12/25/23 16:45 2.253 MLS/HR Vasopressin 20 units/Sodium Chloride 100 ml @ 9 mls/hr Q11H7M IV 12/25/23 17:15 12/29/23 11:50 9 MLS/HR Phenylephrine HCl 250 ml @ 30 mls/hr Q8H20M IV 12/25/23 17:15 12/26/23 00:42 48.75 MLS/HR Epinephrine HCl 250 ml @ 7.5 mls/hr Q24H IV 12/25/23 18:30 Meropenem 50 ml @ 17 mls/hr Q8HR IV 12/26/23 10:00 12/30/23 14:41 17 MLS/HR Pantoprazole Sodium 40 mg DAILY IV 12/26/23 10:00 12/30/23 08:47 40 MG Ipratropium [place] 0.5 mg Q6HR NEB 12/27/23 18:00 Cancel Norepinephrine Bitartrate 32 mg/ Sodium Chloride 250 ml @ 0.938 mls/ hr Q24H IV 12/27/23 14:45 12/29/23 21:10 4.688 MLS/HR Furosemide 40 mg TID IV 12/28/23 14:00 12/30/23 14:41 40 MG Amino Acids 0 ml @ 0 mls/hr PER PHARMACY IV 12/28/23 12:00 Diagnostic Test (Pha) 1 strip Q6HR 12/28/23 18:00 12/30/23 10:28 1 STRIP Insulin Human Regular FOLLOW SLIDING SCALE Q6HR SC 12/28/23 18:00 12/29/23 17:19 2 UNITS Dextrose 50 ml UD IV 12/28/23 13:00 Fat Emulsion Intravenous 50 ml/ Sodium Phosphate 34 meq/Potassium Chloride 40 meq/ Potassium Acetate 40 meq/Calcium Gluconate 4.65 meq/Magnesium Sulfate 16 meq/ Multivitamins 10 ml/Insulin Human Regular 8 units/ Amino Acids/ Dextrose 1,022.58 ml @ 42 mls/hr [id number] IV 12/29/23 22:00 12/30/23 21:59 12/29/23 21:54 42 MLS/HR Insulin Glargine 15 units DAILY@1000 SC 12/29/23 12:15 12/30/23 10:29 15 UNITS Enoxaparin Sodium 40 mg DAILY SC 12/29/23 12:15 12/30/23 08:47 40 MG Fat Emulsion Intravenous 100 ml/Potassium Chloride 40 meq/ Potassium Phosphate 33 meq/ Calcium Gluconate 4.65 meq/ Magnesium Sulfate 16 meq/ Multivitamins 10 ml/Chromium/ Copper/Manganese/ Zinc 1 ml/Amino Acids/Dextrose 1,152.5 ml @ 47 mls/hr [id number] IV 12/30/23 22:00 12/31/23 21:59 laboratory and microbiology Laboratory Tests 12/30/23 03:31 Test 12/30/23 03:31 Range/Units Serum Glucose 133 H 74-106 mg/dL Microbiology Date/Time Source Procedure Growth Status 12/26/23 02:03 Blood Blood Culture - Preliminary NO GROWTH AFTER 72 HOURS OF INCUBATION. Resulted 12/26/23 01:30 Voided Urine Urine Culture - Final Complete 12/25/23 16:11 Nose MRSA Screen - Final Complete 12/25/23 13:36 Sputum Gram Stain - Final Complete 12/25/23 13:36 Respiratory Culture - Final Enterobacter cloacae Complete 12/18/23 13:03 Stool Stool Culture - Final Complete 12/18/23 13:03 Stool Shiga Toxin I & II - Final Complete Problem List/Assessment/Plan Problem List/Assessment/Plan INTUBATED HEMODYNAMICALLY BETTER ON LOW VASOPRESSOR SUPPORT H/H STABLE NO ACTIVE BLEED ABD SOFT LESS DISTENDED NO BM WBC UP ABX CHANGED URINE OUTPUT BETTER ON LASIX NEPHROLOGY EVAL ONGOING CONTINUE CLOSE OBSERVATION SUPPORTIVE CARE REPEAT CT SCAN ABD PELVIS NO INTRAABD COLLECTION HOLD STEROIDS NURSE AT BEDSIDE Plan discussed with: Patient My Orders My Orders Orders - NEGIN BUCKLEY MD Procedure Category Date Status Time Amino Acid PHA 12/30/23 In Process Infusion... W/Fat 22:00 Tpn Per Pharmacy [facility] 12/30/23 In Process 22:00 Comprehensive LAB 12/31/23 Verified Metabolic Panel 04:00 Magnesium LAB 12/31/23 Verified 04:00 Phosphorus LAB 12/31/23 Verified 04:00 Potassium Phosphate PHA 12/30/23 In Process 11:00 Lactic Acid W/ Reflex LAB 12/31/23 Verified Order 04:00 Dietary Evaluation Review Comments: 1) Advance pt diet when medically feasible to a Cardiac diet 2) Continue current plan of care Expected Outcomes/Goals: 1) F/U in 3-5 days NEGIN BUCKLEY MD Dec 30, 2023 17:54
--- NOTE | 2023-12-30 20:42 | DVHPN2 ---
Progress Note - Dictate Date Seen: Dec 30, 2023 Medical Necessity Reason Pt with a Central, PICC or Fol: Yes The following are medically ne: Davies Catheter Reason for davies catheter: Strict I&O Subjective Patient postop day 4 S/P left colon resection and removal of sigmoid/descending colon tumor Patient underwent for repeat CT of the abdomen today Patient seen in ICU intubated sedated; FiO2 45% with a PEEP of five Leukocytosis and lactic acidosis is persistent Patient has moderate elevation in liver enzymes trending downwards Patient required to be on pressors however she is more stable this morning and her pressors are being tapered off vital signs Vital Sign Date Time Temp Pulse Resp B/P (MAP) Pulse Ox O2 Delivery O2 Flow Rate FiO2 12/30/23 18:15 98.1 60 14 112/63 (79) 98 208.6 12/30/23 18:07 45 12/30/23 17:32 Mechanical Ventilator+ Total Intake and Output 12/29/23 12/29/23 12/30/23 15:00 23:00 07:00 Intake Total 643.128 ml 488.004 ml 508.110 ml Output Total 450 ml 990 ml Balance 643.128 ml 38.004 ml -481.890 ml medications Current Medications Medications Dose Ordered Sig/Saige Route Start Time Stop Time Status Last Admin Dose Admin Sodium Chloride 10 ml Q8HR IV 12/17/23 22:00 12/30/23 14:00 10 ML Midazolam HCl 50 ml @ 1 mls/hr Q24H IV 12/25/23 12:30 12/30/23 18:12 7 MLS/HR Fentanyl Citrate 250 ml @ 2.5 mls/hr Q24H IV 12/25/23 12:30 12/30/23 18:14 7.5 MLS/HR Nitroglycerin 0.4 mg Q5MINP PRN SL 12/25/23 16:00 Propofol 100 ml @ 2.253 mls/ hr Q24H IV 12/25/23 16:15 12/25/23 16:45 2.253 MLS/HR Vasopressin 20 units/Sodium Chloride 100 ml @ 9 mls/hr Q11H7M IV 12/25/23 17:15 12/29/23 11:50 9 MLS/HR Phenylephrine HCl 250 ml @ 30 mls/hr Q8H20M IV 12/25/23 17:15 12/26/23 00:42 48.75 MLS/HR Epinephrine HCl 250 ml @ 7.5 mls/hr Q24H IV 12/25/23 18:30 Meropenem 50 ml @ 17 mls/hr Q8HR IV 12/26/23 10:00 12/30/23 14:41 17 MLS/HR Pantoprazole Sodium 40 mg DAILY IV 12/26/23 10:00 12/30/23 08:47 40 MG Ipratropium [place] 0.5 mg Q6HR NEB 12/27/23 18:00 Cancel Norepinephrine Bitartrate 32 mg/ Sodium Chloride 250 ml @ 0.938 mls/ hr Q24H IV 12/27/23 14:45 12/29/23 21:10 4.688 MLS/HR Furosemide 40 mg TID IV 12/28/23 14:00 12/30/23 14:41 40 MG Amino Acids 0 ml @ 0 mls/hr PER PHARMACY IV 12/28/23 12:00 Diagnostic Test (Pha) 1 strip Q6HR 12/28/23 18:00 12/30/23 18:11 1 STRIP Insulin Human Regular FOLLOW SLIDING SCALE Q6HR SC 12/28/23 18:00 12/30/23 18:11 2 UNITS Dextrose 50 ml UD IV 12/28/23 13:00 Fat Emulsion Intravenous 50 ml/ Sodium Phosphate 34 meq/Potassium Chloride 40 meq/ Potassium Acetate 40 meq/Calcium Gluconate 4.65 meq/Magnesium Sulfate 16 meq/ Multivitamins 10 ml/Insulin Human Regular 8 units/ Amino Acids/ Dextrose 1,022.58 ml @ 42 mls/hr [id number] IV 12/29/23 22:00 12/30/23 21:59 12/29/23 21:54 42 MLS/HR Insulin Glargine 15 units DAILY@1000 SC 12/29/23 12:15 12/30/23 10:29 15 UNITS Enoxaparin Sodium 40 mg DAILY SC 12/29/23 12:15 12/30/23 08:47 40 MG Fat Emulsion Intravenous 100 ml/Potassium Chloride 40 meq/ Potassium Phosphate 33 meq/ Calcium Gluconate 4.65 meq/ Magnesium Sulfate 16 meq/ Multivitamins 10 ml/Chromium/ Copper/Manganese/ Zinc 1 ml/Amino Acids/Dextrose 1,152.5 ml @ 47 mls/hr [id number] IV 12/30/23 22:00 12/31/23 21:59 objective General: Well-built, afebrile, palor, mucosae are moist Cardiovascular: Regular S1 and S2. No murmurs, gallops or rubs. No JVD elevation. No pedal edema Respiratory: Normal B/L air entry on room air. Clear lung sounds on auscultation Abdomen: Soft, nontender, mildly tender, normoactive bowel sounds, no rebound tenderness, no organomegaly, no masses Genitourinary: Deferred MSK/skin: Mobilizes 4 limbs. Skin is dry and warm. No rash or bite dong seen in lower or upper extremities. Neurological: No motor, no sensitive deficits, normal speech. Pupils are isocoric and reactive. Psych/Mental Status: A/Ox4, mood is appropriate. laboratory and microbiology Laboratory Tests 12/30/23 03:31 Test 12/30/23 03:31 Range/Units Serum Glucose 133 H 74-106 mg/dL CT SCAN ABD PELVIS IMPRESSION: 1. Redemonstrated are postsurgical changes in the bowel with anastomotic sutures in the sigmoid colon. There is again thickened appearance of the bowel in the lower abdomen and pelvis which May relate to post treatment changes.. There is no evidence of bowel obstruction. 2. Liver is enlarged with numerous poorly defined hypodense masses likely metastatic lesions. 3. There is small amount of ascites and edema in the mesentery. There are small bilateral pleural effusions. There is diffuse anasarca in the soft tissues. Problems(with codes): (1) Adenocarcinoma of sigmoid colon (2) Elevated liver enzymes (3) Shock liver (4) Metastatic adenocarcinoma to liver (5) Sigmoid stricture (6) Abnormal finding on GI tract imaging Prognosis Plan Continue IV antibiotics NPO ; IV PPI Patient is on IV TPN Ventilator support IV fluid hydration Monitor labs Prognosis remains guarded Dietary Evaluation Review Comments: 1) Advance pt diet when medically feasible to a Cardiac diet 2) Continue current plan of care Expected Outcomes/Goals: 1) F/U in 3-5 days Plan discussed with: Other (Dr Marco Buckley) ROD BUCKLEY MD Dec 30, 2023 20:42
[2023-12-30] MEDS: TPN PER PHARMACY IV NR (21:33)
[2023-12-31] VITALS (115 sets, daily range): BP systolic 73–142; BP diastolic 45–83; PULSE 60–93; RESP 13–26; TEMP 99–100.9; O2SAT 92–98
[2023-12-31 03:45] LABS: Basophils # (auto) 0.1 10 ^3/uL (0-0.2); Hemoglobin 10.4 g/dL (12.2-16.2); Lymphocytes # (auto) 0.9 10 ^3/uL (0.4-5.4); Monocytes # (auto) 1.3 10 ^3/uL (0-1.3); Neutrophils # (auto) 11.5 10 ^3/uL (1.6-8.6); White Blood Cell 13.9 10^3/uL (4.4-10.8)
[2023-12-31 03:48] LABS: Basophils % (auto) 0.6 % (0.0-2.0); Eosinophils # (auto) 0.1 10 ^3/uL (0-0.8); Eosinophils % (auto) 0.5 % (0.0-7.0); Hematocrit 31.8 % (36.0-46.0); Lymphocytes % (auto) 6.8 % (10.0-50.0); Mean Corpuscular Hemoglobin 25.4 pg (28.0-32.0); Mean Corpuscular Hgb Conc. 32.7 g/dL (32.0-36.0); Mean Corpuscular Volume 77.7 fL (80.0-100.0); Monocytes % (auto) 9.6 % (0.0-12.0); Neutrophils % (auto) 82.5 % (37.0-80.0); Nucleated Red Blood Cells % 0.1 %; Platelet Count (auto) 161 10^3/uL (140-450)
[2023-12-31 03:58] LABS: Alanine Aminotransferase 126 U/L (7-40); Alkaline Phosphatase 383 U/L (46-116); Anion Gap 5 (5-15); Aspartate Aminotransferase 450 U/L (13-40); BUN/Creatinine Ratio 57.1 (10.0-20.0); Blood Urea Nitrogen 20 mg/dL (9-23); Calcium 7.9 mg/dL (8.7-10.4); Carbon Dioxide 30 mmol/L (20-31); Chloride 108 mmol/L (98-107); Glucose 129 mg/dL (74-106); Magnesium 2.2 mg/dL (1.6-2.6); Potassium 3.7 mmol/L (3.5-5.1); Sodium 143 mmol/L (136-145)
[2023-12-31 03:59] LABS: Albumin 2.7 g/dL (3.2-4.8); Bilirubin, Total 2.5 mg/dL (0.2-1.0); Phosphorus 2.4 mg/dL (2.4-5.1); Total Protein 5.5 g/dL (5.7-8.2)
[2023-12-31 04:05] LABS: Red Cell Distribution Width 23.9 % (11.8-14.3)
--- NOTE | 2023-12-31 04:46 | DVH ---
CHEST RADIOGRAPH Indication:dyspnea Technique: Single frontal view of the chest was obtained COMPARISON: XY CHEST PORTABLE on DOS: 12/30/23, XY CHEST XRAY 1 VIEW on DOS: 12/30/23, XY CHEST SPIKE BLE on DOS: 12/29/23 FINDINGS: Lines and Tubes: Endotracheal tube, enteric catheter and right central venous catheter in satisfactor y position. Lungs: Low lung volumes. Pleura: No effusion. No pneumothorax. Cardiomediastinal contours: Cardiomegaly. Bones: Unremarkable IMPRESSION: Lines and tubes in satisfactory position. No significant interval change.
[2023-12-31] MEDS: ACETAMINOPHEN IV 1000 MG/100ML (10MG/ML) IV ONE ×2 (06:27→16:15)
[2023-12-31 06:58] LABS: Base Excess 4.7 mmol/L (-2.0-3.0)
[2023-12-31] MEDS: POTASSIUM PHOSPHATE 22 MEQ in SODIUM CHL 0.9% 100 ML IV ONE (11:00)
[2023-12-31] MEDS: acetaZOLAMIDE SODIUM 500 MG VL IV ONE (12:29)
[2023-12-31 13:01] LABS: Base Excess 6.1 mmol/L (-2.0-3.0)
--- NOTE | 2023-12-31 13:15 | DVHPNRES ---
Progress Note Date Seen: Dec 31, 2023 Resident Creating Document: AEBLINO HUFF RESIDENT Medical Necessity Reason Pt with a Central, PICC or Fol: Yes The following are medically ne: PICC Line, Davies Catheter Reason for davies catheter: Strict I&O Subjective Review of Systems A 63-year-old female patient with PMHx of systolic heart failure status post Medtronic ICD placement -last EF 35% in September2023, CAD status post 4 RYAN in January 2018 , dyslipidemia, recurrent UTIs and pyelonephritis for the past 4 months, hypertension and internal hemorrhoids presented to the ER with a chief complaint of suprapubic abdominal pain and constipation. Patient recently visited [facility] in August this year with her when she [place] and had bite dong all over the body, following which she has been getting recurrent UTIs and pyelonephritis starting September, also reports dry cough since the visit. She reports that the abdominal pain started 12/10 and is associated with tenesmus, she only passes small pellet-like stools associated with mucus and a lot of flatus. Also reports history of internal hemorrhoids and that she is experiencing bright red bleed per rectum for the past few days. She denies lifetime history of colonoscopy/endoscopy. Reports nausea, chills on and off but no fever. Denies lifetime history of STI, is monogamous with the . Her did not get any symptoms after the trip. PCP Jodie Rico [employer]: [employer] Dr Schrader Past surgical history; Partial hysterectomy Family history: Unremarkable Social history: Lives with , denies smoking, drank heavily during the vacation - quit since, denies illicit drug 12/17 - Patient seen and examined in bed [address]. reports no acute distress, went to have a bowel movement but only passed gas/mucus and a small stool. She has laboratory reports with her from the past, shows transaminitis starting in 07/10. 12/18 - patient reported no active complaint, undergoing sigmoidoscopy today. Blood pressure is 89/50, IV NS bolus of 500 cc and 250 cc afterwards administered. Blood pressure did not responded to IV fluids. Scheduled for image guided liver biopsy on 12/21 by IR. 12/20 - patient feels fine. Tolerating clear liquid diet. Developing pitting edema, starting midodrine t.i.d. 12/21 - patient reports feeling fine, no acute complaint. Lower extremity pitting edema noticed on exam. Bilateral breath sounds are clear on auscultation. Underwent ultrasound-guided liver biopsy. Patient tolerated procedure well. Stress test is scheduled for tomorrow. NPO starting midnight. Cardiology discontinued midodrine. 12/22- patient reports not getting adequate sleep. Underwent stress test today, negative for ischemia, Large anterior anteroseptal and apical wall infarction without evidence of ischemia. Moderately severe reduced ejection fraction at 38%. 12/23 - no acute distress. Cardiology started Jardiance 10 mg daily increase the dose of Entresto to b.i.d.. Surgeon Dr. Tom - possible colectomy tomorrow, patient has moderate to high risk for colorectal surgery per Cardiology. 12/24 - patient is seen and examined at bedside. Reports no active complaint. Completed bowel prep. Underwent colectomy 12/24. 12/25 - shock is improving 2 pressors, severe metabolic acidosis, no need of reintervention today no changes: medically improving, going down on pressors, not ready for extubation yet: ct scan with no dehiscence 12/29: mild fever, [place] cultures 12/30 failed cpap trial Objective vital signs Vital Sign Date Time Temp Pulse Resp B/P (MAP) Pulse Ox O2 Delivery O2 Flow Rate FiO2 12/31/23 12:36 66 12/31/23 12:29 105/62 12/31/23 12:01 21 96 35 12/31/23 11:34 Mechanical Ventilator+ 12/31/23 09:30 99.3 210.7 Total Intake and Output 12/30/23 12/30/23 12/31/23 15:00 23:00 07:00 Intake Total 482.127 ml 1568.504 ml 642.067 ml Output Total 500 ml 1025 ml Balance 482.127 ml 1068.504 ml -382.933 ml medications Current Medications Medications Dose Ordered Sig/Saige Route Start Time Stop Time Status Last Admin Dose Admin Sodium Chloride 10 ml Q8HR IV 12/17/23 22:00 12/31/23 06:17 10 ML Midazolam HCl 50 ml @ 1 mls/hr Q24H IV 12/25/23 12:30 12/31/23 04:43 7 MLS/HR Fentanyl Citrate 250 ml @ 2.5 mls/hr Q24H IV 12/25/23 12:30 12/30/23 18:14 7.5 MLS/HR Nitroglycerin 0.4 mg Q5MINP PRN SL 12/25/23 16:00 Propofol 100 ml @ 2.253 mls/ hr Q24H IV 12/25/23 16:15 12/25/23 16:45 2.253 MLS/HR Vasopressin 20 units/Sodium Chloride 100 ml @ 9 mls/hr Q11H7M IV 12/25/23 17:15 12/29/23 11:50 9 MLS/HR Phenylephrine HCl 250 ml @ 30 mls/hr Q8H20M IV 12/25/23 17:15 12/26/23 00:42 48.75 MLS/HR Epinephrine HCl 250 ml @ 7.5 mls/hr Q24H IV 12/25/23 18:30 Meropenem 50 ml @ 17 mls/hr Q8HR IV 12/26/23 10:00 12/31/23 06:26 17 MLS/HR Pantoprazole Sodium 40 mg DAILY IV 12/26/23 10:00 12/31/23 09:21 40 MG Ipratropium [place] 0.5 mg Q6HR NEB 12/27/23 18:00 Cancel Norepinephrine Bitartrate 32 mg/ Sodium Chloride 250 ml @ 0.938 mls/ hr Q24H IV 12/27/23 14:45 12/29/23 21:10 4.688 MLS/HR Amino Acids 0 ml @ 0 mls/hr PER PHARMACY IV 12/28/23 12:00 Diagnostic Test (Pha) 1 strip Q6HR 12/28/23 18:00 12/31/23 12:25 1 STRIP Insulin Human Regular FOLLOW SLIDING SCALE Q6HR SC 12/28/23 18:00 12/31/23 12:25 2 UNITS Dextrose 50 ml UD IV 12/28/23 13:00 Insulin Glargine 15 units DAILY@1000 SC 12/29/23 12:15 12/31/23 10:00 15 UNITS Enoxaparin Sodium 40 mg DAILY SC 12/29/23 12:15 12/31/23 09:21 40 MG Fat Emulsion Intravenous 100 ml/Potassium Chloride 40 meq/ Potassium Phosphate 33 meq/ Calcium Gluconate 4.65 meq/ Magnesium Sulfate 16 meq/ Multivitamins 10 ml/Chromium/ Copper/Manganese/ Zinc 1 ml/Amino Acids/Dextrose 1,152.5 ml @ 47 mls/hr [id number] IV 12/30/23 22:00 12/31/23 21:59 12/30/23 21:33 47 MLS/HR Fat Emulsion Intravenous 50 ml/ Potassium Chloride 50 meq/ Potassium Phosphate 44 meq/ Calcium Gluconate 2.3 meq/Magnesium Sulfate 12 meq/ Multivitamins 10 ml/Amino Acids/ Dextrose 1,202.9462 ml @ 49 mls/hr [id number] IV 12/31/23 22:00 01/01/24 21:59 Furosemide 40 mg BIDD IV 12/31/23 18:00 Examination General: ETT palor, mucosae are moist Cardiovascular: Regular S1 and S2. No murmurs, gallops or rubs. No JVD elevation. No pedal edema Respiratory: Normal B/L air entry on room air. Clear lung sounds on auscultation Abdomen: Surgical wound clean, Soft, nontender, mildly tender, normoactive bowel sounds, no rebound tenderness, no organomegaly, no masses MSK/skin: Skin is dry and warm. No rash or bite dong seen in lower or upper extremities. laboratory and microbiology Laboratory Tests 12/31/23 03:17 Test 12/31/23 03:17 Range/Units Serum Glucose 129 H 74-106 mg/dL Microbiology Date/Time Source Procedure Growth Status 12/30/23 20:08 Sputum Expectorated Sputum Gram Stain Pending Resulted 12/30/23 20:08 Sputum Expectorated Sputum Respiratory Culture - Preliminary Resulted 12/30/23 12:00 Voided Urine Urine Culture - Preliminary Resulted 12/26/23 02:03 Blood Blood Culture - Final NO GROWTH AFTER 5 DAYS OF INCUBATION. 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 Severely reduced left ventricular systolic function with estimated ejection fraction of 35%. There is anterior anteroapical wall akinesia. EKG completed, reviewed - no ST changes. Cardiology consultation - underwent stress test 12/22 which showed large anterior anteroseptal and apical wall infarction without evidence of ischemia. Moderately severe reduced ejection fraction at 38%. Troponin 48, 42 downtrending Hold on Entresto 24/26 mg b.i.d., Jardiance 10 mg daily per cardiology RESPIRATORY Acute respiratory failure due to Distributive/ vasodilatory shock secondary to status post left colon resection Due to the need of pressors at the time of surgery, patient was not extubated in the OR RR to 16 tidal volume 500 ABG metabolic alkalosis decrease lasix, one dose of acetazolamide Xray no consolidations at the time, bilateral pleural effusion no consolidation sputum positive Enterobacter cloacae No consolidation at this time Pt is on meropenem mild fever today: pancultures tylenol IV one dose wbc trending down GI s/p left colectomy 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 Tom - underwent left colon resection with primary anastomosis on 12/24. Patient required pressor support. [address] scan didnt show dehiscence or abscess Patient underwent US-guided right hepatic lobe mass single kwon core obtained 12/21. Pathology results pending. CT abdomen completed with contrast shows a 6 cm segment of the sigmoid colon demonstrating irregular wall thickening suspicious for primary colon malignancy. GI consulted - Flexible sigmoidoscopy with biopsy identified circumferential polypoid ulcerated inflamed and partially obstructing distal descending colon mass close to the proximal sigmoid at about 45-50 cm above the anal verge. 1+ internal hemorrhoids. She denies lifetime history of colonoscopy/endoscopy. Recent travel history to [facility]. H&H 9.3/28.8, hematocrit 77 - Iron panel remarkable for low iron/low % saturation/normal TIBC Tumor markers CEA 326, AFP 2 Transaminitis secondary to metastatic colon cancer CT scan abdomen with contrast shows enlarged liver with numerous poorly enhancing hepatic lesions with the larger lesions measuring greater than 12 cm. Suspicious for metastatic lesions. Liver ultrasound completed [id number] left liver lobe soft tissue mass tried hepatomegaly with increased hepatic echogenicity seen. Blood alcohol level <3 Pt is on TPN /RENAL KENNA due to shock resolving severe metabolic acidosis non anion gap resolved Low urinary output Nephrology on board Furosemide 40 mg IV bid urine culture negative Case discussed with Dr Hall Time spent in critical care 76 min Full code Plan discussed with: Spouse, Other (rn) My Orders My Orders Orders - ABELINO HUFF RESIDENT Procedure Category Date Status Time Blood Culture TONYA 12/30/23 In Process 11:16 Chest Xray 1 View XY 12/31/23 Resulted 04:00 Abg W/ Co-Ox RT 12/31/23 Logged 04:00 Furosemide Injection PHA 12/31/23 In Process (Lasix Injection) 18:00 Abg W/ Co-Ox RT 12/31/23 Logged 11:40 Dietary Evaluation Review Comments: 1) Advance pt diet when medically feasible to a Cardiac diet 2) Continue current plan of care Expected Outcomes/Goals: 1) F/U in 3-5 days Date of Service: Dec 31, 2023 Billing Provider: LEO HALL MD Common Visit Codes: 82093-[id number] CARE 30-74 MIN ABELINO HUFF RESIDENT Dec 31, 2023 13:15 LEO HALL MD Jan 01, 2024 22:56
--- NOTE | 2023-12-31 16:09 | DVHPN2 ---
Progress Note - Dictate Date Seen: Dec 31, 2023 Medical Necessity Reason Pt with a Central, PICC or Fol: Yes The following are medically ne: PICC Line, Davies Catheter Reason for davies catheter: Strict I&O vital signs Vital Sign Date Time Temp Pulse Resp B/P (MAP) Pulse Ox O2 Delivery O2 Flow Rate FiO2 12/31/23 15:30 16 96 Mechanical Ventilator+ 35 35 12/31/23 15:30 85 12/31/23 14:15 99.9 95/62 (73) 211.8 Total Intake and Output 12/30/23 12/30/23 12/31/23 15:00 23:00 07:00 Intake Total 482.127 ml 1568.504 ml 642.067 ml Output Total 500 ml 1025 ml Balance 482.127 ml 1068.504 ml -382.933 ml medications Current Medications Medications Dose Ordered Sig/Saige Route Start Time Stop Time Status Last Admin Dose Admin Sodium Chloride 10 ml Q8HR IV 12/17/23 22:00 12/31/23 14:07 10 ML Midazolam HCl 50 ml @ 1 mls/hr Q24H IV 12/25/23 12:30 12/31/23 04:43 7 MLS/HR Fentanyl Citrate 250 ml @ 2.5 mls/hr Q24H IV 12/25/23 12:30 12/30/23 18:14 7.5 MLS/HR Nitroglycerin 0.4 mg Q5MINP PRN SL 12/25/23 16:00 Propofol 100 ml @ 2.253 mls/ hr Q24H IV 12/25/23 16:15 12/25/23 16:45 2.253 MLS/HR Vasopressin 20 units/Sodium Chloride 100 ml @ 9 mls/hr Q11H7M IV 12/25/23 17:15 12/29/23 11:50 9 MLS/HR Phenylephrine HCl 250 ml @ 30 mls/hr Q8H20M IV 12/25/23 17:15 12/26/23 00:42 48.75 MLS/HR Epinephrine HCl 250 ml @ 7.5 mls/hr Q24H IV 12/25/23 18:30 Meropenem 50 ml @ 17 mls/hr Q8HR IV 12/26/23 10:00 12/31/23 14:09 17 MLS/HR Pantoprazole Sodium 40 mg DAILY IV 12/26/23 10:00 12/31/23 09:21 40 MG Ipratropium [place] 0.5 mg Q6HR NEB 12/27/23 18:00 Cancel Norepinephrine Bitartrate 32 mg/ Sodium Chloride 250 ml @ 0.938 mls/ hr Q24H IV 12/27/23 14:45 12/29/23 21:10 4.688 MLS/HR Amino Acids 0 ml @ 0 mls/hr PER PHARMACY IV 12/28/23 12:00 Diagnostic Test (Pha) 1 strip Q6HR 12/28/23 18:00 12/31/23 12:25 1 STRIP Insulin Human Regular FOLLOW SLIDING SCALE Q6HR SC 12/28/23 18:00 12/31/23 12:25 2 UNITS Dextrose 50 ml UD IV 12/28/23 13:00 Insulin Glargine 15 units DAILY@1000 SC 12/29/23 12:15 12/31/23 10:00 15 UNITS Enoxaparin Sodium 40 mg DAILY SC 12/29/23 12:15 12/31/23 09:21 40 MG Fat Emulsion Intravenous 100 ml/Potassium Chloride 40 meq/ Potassium Phosphate 33 meq/ Calcium Gluconate 4.65 meq/ Magnesium Sulfate 16 meq/ Multivitamins 10 ml/Chromium/ Copper/Manganese/ Zinc 1 ml/Amino Acids/Dextrose 1,152.5 ml @ 47 mls/hr [id number] IV 12/30/23 22:00 12/31/23 21:59 12/30/23 21:33 47 MLS/HR Fat Emulsion Intravenous 50 ml/ Potassium Chloride 50 meq/ Potassium Phosphate 44 meq/ Calcium Gluconate 2.3 meq/Magnesium Sulfate 12 meq/ Multivitamins 10 ml/Amino Acids/ Dextrose 1,202.9462 ml @ 49 mls/hr [id number] IV 12/31/23 22:00 01/01/24 21:59 Furosemide 40 mg BIDD IV 12/31/23 18:00 objective Elderly white female Intubated Not on pressors Bilateral pitting edema Davies catheter laboratory and microbiology Laboratory Tests 12/31/23 03:17 Test 12/31/23 03:17 Range/Units Serum Glucose 129 H 74-106 mg/dL Assessment/Plan Acute kidney injury due to hemodynamic mediated 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 Acute respiratory failure, intubated on ventilator Septic shock Metabolic acidosis Hyponatremia due excess H2O Transaminitis Microcytic anemia due to blood loss Iron deficiency Hypomagnesemia Kidney function is improving Increased urine output; hypervolemic exam goal negative balance Davies catheter Strict I&Os Furosemide , diamox given for dual diuretic effect to increase negative balance IV antibiotics Dietary Evaluation Review Comments: 1) Advance pt diet when medically feasible to a Cardiac diet 2) Continue current plan of care Expected Outcomes/Goals: 1) F/U in 3-5 days Plan discussed with: Other MACI JENSEN MD Dec 31, 2023 16:09
--- NOTE | 2023-12-31 16:30 | DVHPN2 ---
Progress Note Date Seen: Dec 31, 2023 Medical Necessity Reason Pt with a Central, PICC or Fol: Yes The following are medically ne: PICC Line, Davies Catheter Reason for davies catheter: Strict I&O Objective vital signs Vital Sign Date Time Temp Pulse Resp B/P (MAP) Pulse Ox O2 Delivery O2 Flow Rate FiO2 12/31/23 16:17 83 12/31/23 15:30 16 96 Mechanical Ventilator+ 35 35 12/31/23 14:15 99.9 95/62 (73) 211.8 Total Intake and Output 12/30/23 12/30/23 12/31/23 15:00 23:00 07:00 Intake Total 482.127 ml 1568.504 ml 642.067 ml Output Total 500 ml 1025 ml Balance 482.127 ml 1068.504 ml -382.933 ml medications Current Medications Medications Dose Ordered Sig/Saige Route Start Time Stop Time Status Last Admin Dose Admin Sodium Chloride 10 ml Q8HR IV 12/17/23 22:00 12/31/23 14:07 10 ML Midazolam HCl 50 ml @ 1 mls/hr Q24H IV 12/25/23 12:30 12/31/23 04:43 7 MLS/HR Fentanyl Citrate 250 ml @ 2.5 mls/hr Q24H IV 12/25/23 12:30 12/30/23 18:14 7.5 MLS/HR Nitroglycerin 0.4 mg Q5MINP PRN SL 12/25/23 16:00 Propofol 100 ml @ 2.253 mls/ hr Q24H IV 12/25/23 16:15 12/25/23 16:45 2.253 MLS/HR Vasopressin 20 units/Sodium Chloride 100 ml @ 9 mls/hr Q11H7M IV 12/25/23 17:15 12/29/23 11:50 9 MLS/HR Phenylephrine HCl 250 ml @ 30 mls/hr Q8H20M IV 12/25/23 17:15 12/26/23 00:42 48.75 MLS/HR Epinephrine HCl 250 ml @ 7.5 mls/hr Q24H IV 12/25/23 18:30 Meropenem 50 ml @ 17 mls/hr Q8HR IV 12/26/23 10:00 12/31/23 14:09 17 MLS/HR Pantoprazole Sodium 40 mg DAILY IV 12/26/23 10:00 12/31/23 09:21 40 MG Ipratropium [place] 0.5 mg Q6HR NEB 12/27/23 18:00 Cancel Norepinephrine Bitartrate 32 mg/ Sodium Chloride 250 ml @ 0.938 mls/ hr Q24H IV 12/27/23 14:45 12/29/23 21:10 4.688 MLS/HR Amino Acids 0 ml @ 0 mls/hr PER PHARMACY IV 12/28/23 12:00 Diagnostic Test (Pha) 1 strip Q6HR 12/28/23 18:00 12/31/23 12:25 1 STRIP Insulin Human Regular FOLLOW SLIDING SCALE Q6HR SC 12/28/23 18:00 12/31/23 12:25 2 UNITS Dextrose 50 ml UD IV 12/28/23 13:00 Insulin Glargine 15 units DAILY@1000 SC 12/29/23 12:15 12/31/23 10:00 15 UNITS Enoxaparin Sodium 40 mg DAILY SC 12/29/23 12:15 12/31/23 09:21 40 MG Fat Emulsion Intravenous 100 ml/Potassium Chloride 40 meq/ Potassium Phosphate 33 meq/ Calcium Gluconate 4.65 meq/ Magnesium Sulfate 16 meq/ Multivitamins 10 ml/Chromium/ Copper/Manganese/ Zinc 1 ml/Amino Acids/Dextrose 1,152.5 ml @ 47 mls/hr [id number] IV 12/30/23 22:00 12/31/23 21:59 12/30/23 21:33 47 MLS/HR Fat Emulsion Intravenous 50 ml/ Potassium Chloride 50 meq/ Potassium Phosphate 44 meq/ Calcium Gluconate 2.3 meq/Magnesium Sulfate 12 meq/ Multivitamins 10 ml/Amino Acids/ Dextrose 1,202.9462 ml @ 49 mls/hr [id number] IV 12/31/23 22:00 01/01/24 21:59 Furosemide 40 mg BIDD IV 12/31/23 18:00 laboratory and microbiology Laboratory Tests 12/31/23 03:17 Test 12/31/23 03:17 Range/Units Serum Glucose 129 H 74-106 mg/dL Microbiology Date/Time Source Procedure Growth Status 12/30/23 20:08 Sputum Expectorated Sputum Gram Stain - Final Resulted 12/30/23 20:08 Sputum Expectorated Sputum Respiratory Culture - Preliminary Resulted 12/30/23 15:35 Blood Blood Culture - Preliminary NO GROWTH AFTER 24 HOURS OF INCUBATION. Resulted 12/30/23 12:00 Voided Urine Urine Culture - Preliminary Resulted 12/25/23 16:11 Nose MRSA Screen - Final Complete 12/18/23 13:03 Stool Stool Culture - Final Complete 12/18/23 13:03 Stool Shiga Toxin I & II - Final Complete Problem List/Assessment/Plan Problem List/Assessment/Plan INTUBATED HEMODYNAMICALLY BETTER ON LOW VASOPRESSOR SUPPORT H/H STABLE LACTATE DOWN NO ACTIVE BLEED ABD SOFT LESS DISTENDED NO BM WBC DOWN ABX URINE OUTPUT BETTER ON LASIX NEPHROLOGY EVAL ONGOING CONTINUE CLOSE OBSERVATION SUPPORTIVE CARE HOLD STEROIDS NURSE AT BEDSIDE Plan discussed with: Other My Orders My Orders Orders - NEGIN BUCKLEY MD Procedure Category Date Status Time Amino Acid PHA 12/31/23 In Process Infusion... W/Fat 22:00 Tpn Per Pharmacy [facility]ORES 12/31/23 In Process 22:00 Comprehensive LAB 01/01/24 Verified Metabolic Panel 04:00 Magnesium LAB 01/01/24 Verified 04:00 Phosphorus LAB 01/01/24 Verified 04:00 Dietary Evaluation Review Comments: 1) Advance pt diet when medically feasible to a Cardiac diet 2) Continue current plan of care Expected Outcomes/Goals: 1) F/U in 3-5 days NEGIN BUCKLEY MD Dec 31, 2023 16:30
[2023-12-31] MEDS: FUROSEMIDE 40 MG/4 ML VIAL IV SCH (18:16)
--- NOTE | 2023-12-31 20:07 | DVHPN2 ---
Progress Note - Dictate Date Seen: Dec 31, 2023 Medical Necessity Reason Pt with a Central, PICC or Fol: Yes The following are medically ne: PICC Line, Davies Catheter Reason for davies catheter: Strict I&O Subjective Patient postop day 6 S/P left colon resection and removal of sigmoid/descending colon tumor Patient seen in ICU intubated sedated; FiO2 35% with a PEEP of five Leukocytosis and lactic acidosis improving Patient has moderate elevation in liver enzymes trending downwards slowly;probable hypoxic liver injury Patient is now requiring minimal pressors vital signs Vital Sign Date Time Temp Pulse Resp B/P (MAP) Pulse Ox O2 Delivery O2 Flow Rate FiO2 12/31/23 18:30 99.9 73 15 90/61 (71) 95 211.8 12/31/23 17:57 35 12/31/23 17:55 Mechanical Ventilator+ Total Intake and Output 12/30/23 12/30/23 12/31/23 15:00 23:00 07:00 Intake Total 482.127 ml 1568.504 ml 642.067 ml Output Total 500 ml 1025 ml Balance 482.127 ml 1068.504 ml -382.933 ml medications Current Medications Medications Dose Ordered Sig/Saige Route Start Time Stop Time Status Last Admin Dose Admin Sodium Chloride 10 ml Q8HR IV 12/17/23 22:00 12/31/23 14:07 10 ML Midazolam HCl 50 ml @ 1 mls/hr Q24H IV 12/25/23 12:30 12/31/23 04:43 7 MLS/HR Fentanyl Citrate 250 ml @ 2.5 mls/hr Q24H IV 12/25/23 12:30 12/30/23 18:14 7.5 MLS/HR Nitroglycerin 0.4 mg Q5MINP PRN SL 12/25/23 16:00 Propofol 100 ml @ 2.253 mls/ hr Q24H IV 12/25/23 16:15 12/25/23 16:45 2.253 MLS/HR Vasopressin 20 units/Sodium Chloride 100 ml @ 9 mls/hr Q11H7M IV 12/25/23 17:15 12/29/23 11:50 9 MLS/HR Phenylephrine HCl 250 ml @ 30 mls/hr Q8H20M IV 12/25/23 17:15 12/26/23 00:42 48.75 MLS/HR Epinephrine HCl 250 ml @ 7.5 mls/hr Q24H IV 12/25/23 18:30 Meropenem 50 ml @ 17 mls/hr Q8HR IV 12/26/23 10:00 12/31/23 14:09 17 MLS/HR Pantoprazole Sodium 40 mg DAILY IV 12/26/23 10:00 12/31/23 09:21 40 MG Ipratropium [place] 0.5 mg Q6HR NEB 12/27/23 18:00 Cancel Norepinephrine Bitartrate 32 mg/ Sodium Chloride 250 ml @ 0.938 mls/ hr Q24H IV 12/27/23 14:45 12/29/23 21:10 4.688 MLS/HR Amino Acids 0 ml @ 0 mls/hr PER PHARMACY IV 12/28/23 12:00 Diagnostic Test (Pha) 1 strip Q6HR 12/28/23 18:00 12/31/23 18:15 1 STRIP Insulin Human Regular FOLLOW SLIDING SCALE Q6HR SC 12/28/23 18:00 12/31/23 18:15 2 UNITS Dextrose 50 ml UD IV 12/28/23 13:00 Insulin Glargine 15 units DAILY@1000 SC 12/29/23 12:15 12/31/23 10:00 15 UNITS Enoxaparin Sodium 40 mg DAILY SC 12/29/23 12:15 12/31/23 09:21 40 MG Fat Emulsion Intravenous 100 ml/Potassium Chloride 40 meq/ Potassium Phosphate 33 meq/ Calcium Gluconate 4.65 meq/ Magnesium Sulfate 16 meq/ Multivitamins 10 ml/Chromium/ Copper/Manganese/ Zinc 1 ml/Amino Acids/Dextrose 1,152.5 ml @ 47 mls/hr [id number] IV 12/30/23 22:00 12/31/23 21:59 12/30/23 21:33 47 MLS/HR Fat Emulsion Intravenous 50 ml/ Potassium Chloride 50 meq/ Potassium Phosphate 44 meq/ Calcium Gluconate 2.3 meq/Magnesium Sulfate 12 meq/ Multivitamins 10 ml/Amino Acids/ Dextrose 1,202.9462 ml @ 49 mls/hr [id number] IV 12/31/23 22:00 01/01/24 21:59 Furosemide 40 mg BIDD IV 12/31/23 18:00 12/31/23 18:16 40 MG objective General: Well-built, afebrile, palor, mucosae are moist Cardiovascular: Regular S1 and S2. No murmurs, gallops or rubs. No JVD elevation. No pedal edema Respiratory: Normal B/L air entry on room air. Clear lung sounds on auscultation Abdomen: Soft, nontender, mildly tender, normoactive bowel sounds, no rebound tenderness, no organomegaly, no masses Genitourinary: Deferred MSK/skin: Mobilizes 4 limbs. Skin is dry and warm. No rash or bite dong seen in lower or upper extremities. Neurological: No motor, no sensitive deficits, normal speech. Pupils are isocoric and reactive. Psych/Mental Status: A/Ox4, mood is appropriate. laboratory and microbiology Laboratory Tests 12/31/23 03:17 Test 12/31/23 03:17 Range/Units Serum Glucose 129 H 74-106 mg/dL Problems(with codes): (1) Shock liver (2) Elevated liver enzymes (3) Adenocarcinoma of sigmoid colon (4) Metastatic adenocarcinoma to liver (5) Abnormal finding on GI tract imaging (6) Heart failure with reduced ejection fraction (7) SIRS (systemic inflammatory response syndrome) Prognosis Plan Continue IV antibiotics NPO ; IV PPI Patient is on IV TPN Ventilator support IV fluid hydration Monitor labs Prognosis remains guarded Dietary Evaluation Review Comments: 1) Advance pt diet when medically feasible to a Cardiac diet 2) Continue current plan of care Expected Outcomes/Goals: 1) F/U in 3-5 days Plan discussed with: Other (None) ROD BUCKLEY MD Dec 31, 2023 20:07
[2023-12-31] MEDS: TPN PER PHARMACY IV NR (22:27)
[2024-01-01] VITALS (109 sets, daily range): BP systolic 79–145; BP diastolic 42–102; PULSE 63–123; RESP 12–31; TEMP 96.8–100.9; O2SAT 92–98
[2024-01-01 03:31] LABS: Basophils # (auto) 0.2 10 ^3/uL (0-0.2); Eosinophils # (auto) 0 10 ^3/uL (0-0.8); Eosinophils % (auto) 0.2 % (0.0-7.0); Hemoglobin 10.4 g/dL (12.2-16.2)
[2024-01-01 03:33] LABS: Basophils % (auto) 0.9 % (0.0-2.0); Hematocrit 32.1 % (36.0-46.0); Lymphocytes % (auto) 5.6 % (10.0-50.0); Mean Corpuscular Hemoglobin 25.2 pg (28.0-32.0); Mean Corpuscular Hgb Conc. 32.4 g/dL (32.0-36.0); Mean Corpuscular Volume 77.7 fL (80.0-100.0); Monocytes # (auto) 1.8 10 ^3/uL (0-1.3); Monocytes % (auto) 10.3 % (0.0-12.0); Neutrophils # (auto) 14.9 10 ^3/uL (1.6-8.6); Platelet Count (auto) 182 10^3/uL (140-450); Red Blood Cells 4.14 10^6/uL (4.0-5.20)
[2024-01-01 03:49] LABS: Alanine Aminotransferase 120 U/L (7-40); Albumin 2.8 g/dL (3.2-4.8); Alkaline Phosphatase 369 U/L (46-116); Anion Gap 9 (5-15); Aspartate Aminotransferase 464 U/L (13-40); BUN/Creatinine Ratio 68.6 (10.0-20.0); Blood Urea Nitrogen 24 mg/dL (9-23); Calcium 8.1 mg/dL (8.7-10.4); Carbon Dioxide 27 mmol/L (20-31); Chloride 108 mmol/L (98-107); Glucose 157 mg/dL (74-106); Magnesium 2.3 mg/dL (1.6-2.6); Potassium 3.5 mmol/L (3.5-5.1); Sodium 144 mmol/L (136-145)
[2024-01-01 03:50] LABS: Bilirubin, Total 2.6 mg/dL (0.2-1.0); Phosphorus 2.9 mg/dL (2.4-5.1); Total Protein 5.8 g/dL (5.7-8.2)
[2024-01-01 04:05] LABS: Red Cell Distribution Width 25.2 % (11.8-14.3)
--- NOTE | 2024-01-01 05:44 | DVH ---
CHEST RADIOGRAPH Indication:dyspnea Technique: Single frontal view of the chest was obtained COMPARISON: XY CHEST XRAY 1 VIEW on DOS: 12/31/23, XY CHEST PORTABLE on DOS: 12/30/23, XY CHEST XRAY 1 VIEW on DOS: 12/30/23 FINDINGS: Lines and Tubes: Endotracheal tube, enteric catheter and right central venous catheter and left chest wall AICD in satisfactory position. Lungs: Low lung volumes. Pleura: No effusion. No pneumothorax. Cardiomediastinal contours: Unremarkable Bones: Unremarkable IMPRESSION: Lines and tubes in satisfactory position. No significant interval change.
[2024-01-01 05:53] LABS: Anisocytosis Moderate; Platelet Estimate Adequate
[2024-01-01 05:54] LABS: Ovalocytes FEW; Target Cell FEW
[2024-01-01 06:23] LABS: Base Excess 3.1 mmol/L (-2.0-3.0)
[2024-01-01 10:41] LABS: Base Excess 1.6 mmol/L (-2.0-3.0)
[2024-01-01] MEDS ORDERED: VANCOMYCIN PER PHARMACY 0 MG IV SCH (12:15)
[2024-01-01] MEDS: CEFEPIME 2GM/50ML NS 50 ML IV SCH (14:26)
--- NOTE | 2024-01-01 14:26 | DVHPN2 ---
Progress Note Date Seen: Jan 01, 2024 Medical Necessity Reason Pt with a Central, PICC or Fol: Yes The following are medically ne: PICC Line, Davies Catheter Reason for davies catheter: Strict I&O Objective vital signs Vital Sign Date Time Temp Pulse Resp B/P (MAP) Pulse Ox O2 Delivery O2 Flow Rate FiO2 01/01/24 14:00 22 94 Mechanical Ventilator+ 35 35 01/01/24 14:00 102 01/01/24 13:59 85/53 (64) 01/01/24 07:00 100.9 213.6 Total Intake and Output 12/31/23 12/31/23 01/01/24 15:00 23:00 07:00 Intake Total 538.066 ml 572.627 ml 553.002 ml Output Total 850 ml 1150 ml Balance 538.066 ml -277.373 ml -596.998 ml medications Current Medications Medications Dose Ordered Sig/Saige Route Start Time Stop Time Status Last Admin Dose Admin Sodium Chloride 10 ml Q8HR IV 12/17/23 22:00 01/01/24 05:24 10 ML Midazolam HCl 50 ml @ 1 mls/hr Q24H IV 12/25/23 12:30 12/31/23 04:43 7 MLS/HR Fentanyl Citrate 250 ml @ 2.5 mls/hr Q24H IV 12/25/23 12:30 01/01/24 12:51 5 MLS/HR Nitroglycerin 0.4 mg Q5MINP PRN SL 12/25/23 16:00 Propofol 100 ml @ 2.253 mls/ hr Q24H IV 12/25/23 16:15 12/25/23 16:45 2.253 MLS/HR Vasopressin 20 units/Sodium Chloride 100 ml @ 9 mls/hr Q11H7M IV 12/25/23 17:15 12/29/23 11:50 9 MLS/HR Phenylephrine HCl 250 ml @ 30 mls/hr Q8H20M IV 12/25/23 17:15 12/26/23 00:42 48.75 MLS/HR Epinephrine HCl 250 ml @ 7.5 mls/hr Q24H IV 12/25/23 18:30 Pantoprazole Sodium 40 mg DAILY IV 12/26/23 10:00 01/01/24 10:07 40 MG Ipratropium [place] 0.5 mg Q6HR NEB 12/27/23 18:00 Cancel Norepinephrine Bitartrate 32 mg/ Sodium Chloride 250 ml @ 0.938 mls/ hr Q24H IV 12/27/23 14:45 12/29/23 21:10 4.688 MLS/HR Amino Acids 0 ml @ 0 mls/hr PER PHARMACY IV 12/28/23 12:00 Diagnostic Test (Pha) 1 strip Q6HR 12/28/23 18:00 01/01/24 12:03 1 STRIP Insulin Human Regular FOLLOW SLIDING SCALE Q6HR SC 12/28/23 18:00 01/01/24 12:03 2 UNITS Dextrose 50 ml UD IV 12/28/23 13:00 Insulin Glargine 15 units DAILY@1000 SC 12/29/23 12:15 01/01/24 10:23 15 UNITS Enoxaparin Sodium 40 mg DAILY SC 12/29/23 12:15 01/01/24 10:08 40 MG Fat Emulsion Intravenous 50 ml/ Potassium Chloride 50 meq/ Potassium Phosphate 44 meq/ Calcium Gluconate 2.3 meq/Magnesium Sulfate 12 meq/ Multivitamins 10 ml/Amino Acids/ Dextrose 1,202.9462 ml @ 49 mls/hr [id number] IV 12/31/23 22:00 01/01/24 21:59 12/31/23 22:27 49 MLS/HR Furosemide 40 mg BIDD IV 12/31/23 18:00 01/01/24 05:23 40 MG Cefepime HCl 50 ml @ 12.5 mls/hr Q8HR IV 01/01/24 14:00 Vancomycin HCl 0 ml @ 0 mls/hr UD IV 01/01/24 12:15 Fat Emulsion Intravenous 50 ml/ Potassium Chloride 40 meq/ Potassium Acetate 20 meq/Potassium Phosphate 44 meq/ Calcium Gluconate 2.3 meq/Magnesium Sulfate 12 meq/ Multivitamins 10 ml/Amino Acids/ Dextrose 1,207.9462 ml @ 50 mls/hr [id number] IV 01/01/24 22:00 01/02/24 21:59 laboratory and microbiology Laboratory Tests 01/01/24 03:10 Test 01/01/24 03:10 Range/Units Serum Glucose 157 H 74-106 mg/dL Microbiology Date/Time Source Procedure Growth Status 12/30/23 20:08 Sputum Expectorated Sputum Gram Stain - Final Resulted 12/30/23 20:08 Sputum Expectorated Sputum Respiratory Culture - Preliminary Resulted 12/30/23 15:35 Blood Blood Culture - Preliminary NO GROWTH AFTER 24 HOURS OF INCUBATION. Resulted 12/30/23 12:00 Voided Urine Urine Culture - Final Complete 12/25/23 16:11 Nose MRSA Screen - Final Complete 12/18/23 13:03 Stool Stool Culture - Final Complete 12/18/23 13:03 Stool Shiga Toxin I & II - Final Complete Problem List/Assessment/Plan Problem List/Assessment/Plan INTUBATED HEMODYNAMICALLY BETTER ON LOW VASOPRESSOR SUPPORT H/H STABLE LACTATE DOWN NO ACTIVE BLEED ABD SOFT LESS DISTENDED NO BM FLATUS + WBC UP URINE OUTPUT BETTER ON LASIX NEPHROLOGY EVAL ONGOING CONTINUE CLOSE OBSERVATION SUPPORTIVE CARE HOLD STEROIDS REMOVE STAPLE LOWER WOUND SEROUS FLUID DRAINED DRESSING APPLIED ALLERGY REACTION TO PREVIOUS ISLAND DRESSING NURSE AT BEDSIDE Plan discussed with: Other My Orders My Orders Orders - NEGIN BUCKLEY MD Procedure Category Date Status Time Amino Acid PHA 01/01/24 In Process Infusion... W/Fat 22:00 Magnesium LAB 01/02/24 Verified 04:00 Phosphorus LAB 01/02/24 Verified 04:00 Comprehensive LAB 01/02/24 Verified Metabolic Panel 04:00 Tpn Per Pharmacy [facility] 01/01/24 In Process 22:00 Dietary Evaluation Review Comments: 1) Advance pt diet when medically feasible to a Cardiac diet 2) Continue current plan of care Expected Outcomes/Goals: 1) F/U in 3-5 days NEGIN BUCKLEY MD Jan 01, 2024 14:26
[2024-01-01] MEDS: VANCOMYCIN 1.5GM/300ML 300 ML IV ONE (15:37)
--- NOTE | 2024-01-01 16:07 | DVHPN2 ---
Progress Note - Dictate Date Seen: Jan 01, 2024 Medical Necessity Reason Pt with a Central, PICC or Fol: Yes The following are medically ne: PICC Line, Davies Catheter Reason for davies catheter: Strict I&O vital signs Vital Sign Date Time Temp Pulse Resp B/P (MAP) Pulse Ox O2 Delivery O2 Flow Rate FiO2 01/01/24 16:00 22 93 Mechanical Ventilator+ 35 35 01/01/24 16:00 100 01/01/24 15:58 95/62 01/01/24 15:45 100.6 213.1 Total Intake and Output 12/31/23 12/31/23 01/01/24 15:00 23:00 07:00 Intake Total 538.066 ml 572.627 ml 553.002 ml Output Total 850 ml 1150 ml Balance 538.066 ml -277.373 ml -596.998 ml medications Current Medications Medications Dose Ordered Sig/Saige Route Start Time Stop Time Status Last Admin Dose Admin Sodium Chloride 10 ml Q8HR IV 12/17/23 22:00 01/01/24 14:27 10 ML Midazolam HCl 50 ml @ 1 mls/hr Q24H IV 12/25/23 12:30 12/31/23 04:43 7 MLS/HR Fentanyl Citrate 250 ml @ 2.5 mls/hr Q24H IV 12/25/23 12:30 01/01/24 12:51 5 MLS/HR Nitroglycerin 0.4 mg Q5MINP PRN SL 12/25/23 16:00 Propofol 100 ml @ 2.253 mls/ hr Q24H IV 12/25/23 16:15 12/25/23 16:45 2.253 MLS/HR Vasopressin 20 units/Sodium Chloride 100 ml @ 9 mls/hr Q11H7M IV 12/25/23 17:15 12/29/23 11:50 9 MLS/HR Phenylephrine HCl 250 ml @ 30 mls/hr Q8H20M IV 12/25/23 17:15 12/26/23 00:42 48.75 MLS/HR Epinephrine HCl 250 ml @ 7.5 mls/hr Q24H IV 12/25/23 18:30 Pantoprazole Sodium 40 mg DAILY IV 12/26/23 10:00 01/01/24 10:07 40 MG Ipratropium [place] 0.5 mg Q6HR NEB 12/27/23 18:00 Cancel Norepinephrine Bitartrate 32 mg/ Sodium Chloride 250 ml @ 0.938 mls/ hr Q24H IV 12/27/23 14:45 12/29/23 21:10 4.688 MLS/HR Amino Acids 0 ml @ 0 mls/hr PER PHARMACY IV 12/28/23 12:00 Diagnostic Test (Pha) 1 strip Q6HR 12/28/23 18:00 01/01/24 12:03 1 STRIP Insulin Human Regular FOLLOW SLIDING SCALE Q6HR SC 12/28/23 18:00 01/01/24 12:03 2 UNITS Dextrose 50 ml UD IV 12/28/23 13:00 Insulin Glargine 15 units DAILY@1000 SC 12/29/23 12:15 01/01/24 10:23 15 UNITS Enoxaparin Sodium 40 mg DAILY SC 12/29/23 12:15 01/01/24 10:08 40 MG Fat Emulsion Intravenous 50 ml/ Potassium Chloride 50 meq/ Potassium Phosphate 44 meq/ Calcium Gluconate 2.3 meq/Magnesium Sulfate 12 meq/ Multivitamins 10 ml/Amino Acids/ Dextrose 1,202.9462 ml @ 49 mls/hr [id number] IV 12/31/23 22:00 01/01/24 21:59 12/31/23 22:27 49 MLS/HR Furosemide 40 mg BIDD IV 12/31/23 18:00 01/01/24 05:23 40 MG Cefepime HCl 50 ml @ 12.5 mls/hr Q8HR IV 01/01/24 14:00 01/01/24 14:26 12.5 MLS/HR Vancomycin HCl 0 ml @ 0 mls/hr UD IV 01/01/24 12:15 Fat Emulsion Intravenous 50 ml/ Potassium Chloride 40 meq/ Potassium Acetate 20 meq/Potassium Phosphate 44 meq/ Calcium Gluconate 2.3 meq/Magnesium Sulfate 12 meq/ Multivitamins 10 ml/Amino Acids/ Dextrose 1,207.9462 ml @ 50 mls/hr [id number] IV 01/01/24 22:00 01/02/24 21:59 objective Elderly white female Intubated Not on pressors Bilateral pitting edema Davies catheter laboratory and microbiology Laboratory Tests 01/01/24 03:10 Test 01/01/24 03:10 Range/Units Serum Glucose 157 H 74-106 mg/dL Assessment/Plan Acute kidney injury due to hemodynamic mediated 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 Acute respiratory failure, intubated on ventilator Septic shock Metabolic acidosis Hyponatremia due excess H2O Transaminitis Microcytic anemia due to blood loss Iron deficiency Hypomagnesemia Kidney function has normalized Increased urine output; hypervolemic exam goal negative balance diuretics Davies catheter Strict I&Os IV antibiotics will sign off the case now that patient is stable from renal standpoint Dietary Evaluation Review Comments: 1) Advance pt diet when medically feasible to a Cardiac diet 2) Continue current plan of care Expected Outcomes/Goals: 1) F/U in 3-5 days Plan discussed with: MACI Arreola MD Jan 01, 2024 16:06
--- NOTE | 2024-01-01 17:31 | DVHPNRES ---
Progress Note Date Seen: Jan 01, 2024 Resident Creating Document: ABELINO HUFF RESIDENT Medical Necessity Reason Pt with a Central, PICC or Fol: Yes The following are medically ne: PICC Line, Dvaies Catheter Reason for davies catheter: Strict I&O Subjective Review of Systems A 63-year-old female patient with PMHx of systolic heart failure status post Medtronic ICD placement -last EF 35% in September2023, CAD status post 4 RYAN in January 2018 , dyslipidemia, recurrent UTIs and pyelonephritis for the past 4 months, hypertension and internal hemorrhoids presented to the ER with a chief complaint of suprapubic abdominal pain and constipation. Patient recently visited [facility] in August this year with her when she went to the [place] barefoot and had bite dong all over the body, following which she has been getting recurrent UTIs and pyelonephritis starting September, also reports dry cough since the visit. She reports that the abdominal pain started 12/10 and is associated with tenesmus, she only passes small pellet-like stools associated with mucus and a lot of flatus. Also reports history of internal hemorrhoids and that she is experiencing bright red bleed per rectum for the past few days. She denies lifetime history of colonoscopy/endoscopy. Reports nausea, chills on and off but no fever. Denies lifetime history of STI, is monogamous with the . Her did not get any symptoms after the trip. 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 reports no acute distress, went to have a bowel movement but only passed gas/mucus and a small stool. She has laboratory reports with her from the past, shows transaminitis starting in 07/10. 12/18 - patient reported no active complaint, undergoing sigmoidoscopy today. Blood pressure is 89/50, IV NS bolus of 500 cc and 250 cc afterwards administered. Blood pressure did not responded to IV fluids. Scheduled for image guided liver biopsy on 12/21 by IR. 12/20 - patient feels fine. Tolerating clear liquid diet. Developing pitting edema, starting midodrine t.i.d. 12/21 - patient reports feeling fine, no acute complaint. Lower extremity pitting edema noticed on exam. Bilateral breath sounds are clear on auscultation. Underwent ultrasound-guided liver biopsy. Patient tolerated procedure well. Stress test is scheduled for tomorrow. NPO starting midnight. Cardiology discontinued midodrine. 12/22- patient reports not getting adequate sleep. Underwent stress test today, negative for ischemia, Large anterior anteroseptal and apical wall infarction without evidence of ischemia. Moderately severe reduced ejection fraction at 38%. 12/23 - no acute distress. Cardiology started Jardiance 10 mg daily increase the dose of Entresto to b.i.d.. Surgeon Dr. Tom - possible colectomy tomorrow, patient has moderate to high risk for colorectal surgery per Cardiology. 12/24 - patient is seen and examined at bedside. Reports no active complaint. Completed bowel prep. Underwent colectomy 12/24. 12/25 - shock is improving 2 pressors, severe metabolic acidosis, no need of reintervention today no changes: medically improving, going down on pressors, not ready for extubation yet: ct scan with no dehiscence 12/29: mild fever, [place] cultures 12/30 failed cpap trial 12/31 fevers, wbc trending high, change in AB, cpap trial for 8 h Objective vital signs Vital Sign Date Time Temp Pulse Resp B/P (MAP) Pulse Ox O2 Delivery O2 Flow Rate FiO2 01/01/24 17:00 100.4 91 14 91/42 (58) 96 212.7 01/01/24 16:10 35 01/01/24 16:00 Mechanical Ventilator+ Total Intake and Output 12/31/23 12/31/23 01/01/24 15:00 23:00 07:00 Intake Total 538.066 ml 572.627 ml 553.002 ml Output Total 850 ml 1150 ml Balance 538.066 ml -277.373 ml -596.998 ml medications Current Medications Medications Dose Ordered Sig/Saige Route Start Time Stop Time Status Last Admin Dose Admin Sodium Chloride 10 ml Q8HR IV 12/17/23 22:00 01/01/24 14:27 10 ML Midazolam HCl 50 ml @ 1 mls/hr Q24H IV 12/25/23 12:30 12/31/23 04:43 7 MLS/HR Fentanyl Citrate 250 ml @ 2.5 mls/hr Q24H IV 12/25/23 12:30 01/01/24 12:51 5 MLS/HR Nitroglycerin 0.4 mg Q5MINP PRN SL 12/25/23 16:00 Vasopressin 20 units/Sodium Chloride 100 ml @ 9 mls/hr Q11H7M IV 12/25/23 17:15 12/29/23 11:50 9 MLS/HR Phenylephrine HCl 250 ml @ 30 mls/hr Q8H20M IV 12/25/23 17:15 12/26/23 00:42 48.75 MLS/HR Epinephrine HCl 250 ml @ 7.5 mls/hr Q24H IV 12/25/23 18:30 Pantoprazole Sodium 40 mg DAILY IV 12/26/23 10:00 01/01/24 10:07 40 MG Ipratropium [place] 0.5 mg Q6HR NEB 12/27/23 18:00 Cancel Norepinephrine Bitartrate 32 mg/ Sodium Chloride 250 ml @ 0.938 mls/ hr Q24H IV 12/27/23 14:45 01/01/24 16:27 0.938 MLS/HR Amino Acids 0 ml @ 0 mls/hr PER PHARMACY IV 12/28/23 12:00 Diagnostic Test (Pha) 1 strip Q6HR 12/28/23 18:00 01/01/24 12:03 1 STRIP Insulin Human Regular FOLLOW SLIDING SCALE Q6HR SC 12/28/23 18:00 01/01/24 12:03 2 UNITS Dextrose 50 ml UD IV 12/28/23 13:00 Insulin Glargine 15 units DAILY@1000 SC 12/29/23 12:15 01/01/24 10:23 15 UNITS Enoxaparin Sodium 40 mg DAILY SC 12/29/23 12:15 01/01/24 10:08 40 MG Fat Emulsion Intravenous 50 ml/ Potassium Chloride 50 meq/ Potassium Phosphate 44 meq/ Calcium Gluconate 2.3 meq/Magnesium Sulfate 12 meq/ Multivitamins 10 ml/Amino Acids/ Dextrose 1,202.9462 ml @ 49 mls/hr [id number] IV 12/31/23 22:00 01/01/24 21:59 12/31/23 22:27 49 MLS/HR Furosemide 40 mg BIDD IV 12/31/23 18:00 01/01/24 05:23 40 MG Cefepime HCl 50 ml @ 12.5 mls/hr Q8HR IV 01/01/24 14:00 01/01/24 14:26 12.5 MLS/HR Vancomycin HCl 0 ml @ 0 mls/hr UD IV 01/01/24 12:15 Fat Emulsion Intravenous 50 ml/ Potassium Chloride 40 meq/ Potassium Acetate 20 meq/Potassium Phosphate 44 meq/ Calcium Gluconate 2.3 meq/Magnesium Sulfate 12 meq/ Multivitamins 10 ml/Amino Acids/ Dextrose 1,207.9462 ml @ 50 mls/hr [id number] IV 01/01/24 22:00 01/02/24 21:59 Vancomycin HCl 200 ml @ 200 mls/hr Q14H IV 01/02/24 05:00 Examination General: ETT palor, mucosae are moist Cardiovascular: Regular S1 and S2. No murmurs, gallops or rubs. No JVD elevation. No pedal edema Respiratory: Normal B/L air entry on room air. Clear lung sounds on auscultation Abdomen: Surgical wound clean, Soft, nontender, mildly tender, normoactive bowel sounds, no rebound tenderness, no organomegaly, no masses MSK/skin: Skin is dry and warm. No rash or bite dong seen in lower or upper extremities. laboratory and microbiology Laboratory Tests 01/01/24 03:10 Test 01/01/24 03:10 Range/Units Serum Glucose 157 H 74-106 mg/dL Microbiology Date/Time Source Procedure Growth Status 12/30/23 20:08 Sputum Expectorated Sputum Gram Stain - Final Resulted 12/30/23 20:08 Sputum Expectorated Sputum Respiratory Culture - Preliminary Resulted 12/30/23 15:35 Blood Blood Culture - Preliminary NO GROWTH AFTER 48 HOURS OF INCUBATION. Resulted 12/30/23 12:00 Voided Urine Urine Culture - Final Complete 12/25/23 16:11 Nose MRSA Screen - Final Complete 12/18/23 13:03 Stool Stool Culture - Final Complete 12/18/23 13:03 Stool Shiga Toxin I & II - Final Complete Problem List/Assessment/Plan Problem List/Assessment/Plan NEUROLOGY RASS -4 Pt is on fentanyl CARDIOLOGY Distributive/ vasodilatory septic shock? shock secondary to metastatic sigmoid adenocarcinoma status post left colon resection with primary anastomosis 11/7 - intubated and mechanically ventilated 12/24 Pt is on levophed 9 , previously patient was on vasopressin, epinephrin and phenylephrine shock is improving mild fever today: pancultures pending results change in AB: cefepime + vanco History of CAD status post PTCA with 4 stents in January 2018 at [facility] Chronic systolic heart failure status post Medtronic ICD - NSTEMI II Echocardiogram showed moderately dilated left ventricular. Severely reduced left ventricular systolic function with estimated ejection fraction of 35%. There is anterior anteroapical wall akinesia. EKG completed, reviewed - no ST changes. Cardiology consultation - underwent stress test 12/22 which showed large anterior anteroseptal and apical wall infarction without evidence of ischemia. Moderately severe reduced ejection fraction at 38%. 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 Tom - underwent left colon resection with primary anastomosis on 12/24. Patient required pressor support. [address] scan didnt show dehiscence or abscess Patient underwent US-guided right hepatic lobe mass single kwon core obtained 12/21. Pathology results pending. CT abdomen completed with contrast shows a 6 cm segment of the sigmoid colon demonstrating irregular wall thickening suspicious for primary colon malignancy. GI consulted - Flexible sigmoidoscopy with biopsy identified circumferential polypoid ulcerated inflamed and partially obstructing distal descending colon mass close to the proximal sigmoid at about 45-50 cm above the anal verge. 1+ internal hemorrhoids. She denies lifetime history of colonoscopy/endoscopy. Recent travel history to [facility]. H&H 9.3/28.8, hematocrit 77 - Iron panel remarkable for low iron/low % saturation/normal TIBC Tumor markers CEA 326, AFP 2 Transaminitis secondary to metastatic colon cancer CT scan abdomen with contrast shows enlarged liver with numerous poorly enhancing hepatic lesions with the larger lesions measuring greater than 12 cm. Suspicious for metastatic lesions. Liver ultrasound completed [id number] left liver lobe soft tissue mass tried hepatomegaly with increased hepatic echogenicity seen. Blood alcohol level <3 Pt is on TPN /RENAL KENNA due to shock resolving severe metabolic acidosis non anion gap resolved Low urinary output improving Nephrology on board Furosemide 40 mg IV bid urine culture negative Case discussed with Dr Hall Time spent in critical care 76 min Full code Plan discussed with: Spouse, Other (rn) My Orders My Orders Orders - ABELINO HUFF Procedure Category Date Status Time Cpap Trial For Am ORDERS 01/01/24 Transmitted 08:00 Cefepime 2gm/50ml Ns PHA 01/01/24 In Process (Maxipime 2gm/50ml) 14:00 Vancomycin Per [facility]A 01/01/24 In Process Pharmacy 12:15 Vancomycin 1gm/200ml PHA 01/02/24 In Process Premix 05:00 Vancomycin,Trough LAB 01/03/24 Verified 08:00 Vancomycin Per [facility] 01/03/24 In Process Pharmacy Protoc 09:00 Dietary Evaluation Review Comments: 1) Advance pt diet when medically feasible to a Cardiac diet 2) Continue current plan of care Expected Outcomes/Goals: 1) F/U in 3-5 days Date of Service: Jan 01, 2024 Billing Provider: LEO HALL MD Common Visit Codes: 85425-[id number] CARE 30-74 MIN ABELINO HUFF RESIDENT Jan 01, 2024 17:31 LEO HALL MD Jan 02, 2024 13:02
--- NOTE | 2024-01-01 21:17 | DVHPN2 ---
Progress Note - Dictate Date Seen: Jan 01, 2024 Medical Necessity Reason Pt with a Central, PICC or Fol: Yes The following are medically ne: PICC Line, Davies Catheter Reason for davies catheter: Strict I&O Subjective Patient postop day 7 S/P left colon resection and removal of sigmoid/descending colon tumor Patient seen in ICU intubated sedated; FiO2 35% with a PEEP of five Patient is running a low-grade fever; sputum culture showed some Gram-negative rods, Enterobacter cloaca Leukocytosis and lactic acidosis improving Patient has moderate elevation in liver enzymes trending downwards slowly;probable hypoxic liver injury Patient is now requiring minimal pressors vital signs Vital Sign Date Time Temp Pulse Resp B/P (MAP) Pulse Ox O2 Delivery O2 Flow Rate FiO2 01/01/24 20:10 83 25 88/49 (62) 94 35 01/01/24 18:45 98.1 208.6 01/01/24 18:00 Mechanical Ventilator+ Total Intake and Output 12/31/23 12/31/23 01/01/24 15:00 23:00 07:00 Intake Total 538.066 ml 572.627 ml 553.002 ml Output Total 850 ml 1150 ml Balance 538.066 ml -277.373 ml -596.998 ml medications Current Medications Medications Dose Ordered Sig/Saige Route Start Time Stop Time Status Last Admin Dose Admin Sodium Chloride 10 ml Q8HR IV 12/17/23 22:00 01/01/24 14:27 10 ML Midazolam HCl 50 ml @ 1 mls/hr Q24H IV 12/25/23 12:30 12/31/23 04:43 7 MLS/HR Fentanyl Citrate 250 ml @ 2.5 mls/hr Q24H IV 12/25/23 12:30 01/01/24 12:51 5 MLS/HR Nitroglycerin 0.4 mg Q5MINP PRN SL 12/25/23 16:00 Vasopressin 20 units/Sodium Chloride 100 ml @ 9 mls/hr Q11H7M IV 12/25/23 17:15 12/29/23 11:50 9 MLS/HR Phenylephrine HCl 250 ml @ 30 mls/hr Q8H20M IV 12/25/23 17:15 12/26/23 00:42 48.75 MLS/HR Epinephrine HCl 250 ml @ 7.5 mls/hr Q24H IV 12/25/23 18:30 Pantoprazole Sodium 40 mg DAILY IV 12/26/23 10:00 01/01/24 10:07 40 MG Ipratropium [place] 0.5 mg Q6HR NEB 12/27/23 18:00 Cancel Norepinephrine Bitartrate 32 mg/ Sodium Chloride 250 ml @ 0.938 mls/ hr Q24H IV 12/27/23 14:45 01/01/24 16:27 0.938 MLS/HR Amino Acids 0 ml @ 0 mls/hr PER PHARMACY IV 12/28/23 12:00 Diagnostic Test (Pha) 1 strip Q6HR 12/28/23 18:00 01/01/24 17:47 1 STRIP Insulin Human Regular FOLLOW SLIDING SCALE Q6HR SC 12/28/23 18:00 01/01/24 17:48 2 UNITS Dextrose 50 ml UD IV 12/28/23 13:00 Insulin Glargine 15 units DAILY@1000 SC 12/29/23 12:15 01/01/24 10:23 15 UNITS Enoxaparin Sodium 40 mg DAILY SC 12/29/23 12:15 01/01/24 10:08 40 MG Fat Emulsion Intravenous 50 ml/ Potassium Chloride 50 meq/ Potassium Phosphate 44 meq/ Calcium Gluconate 2.3 meq/Magnesium Sulfate 12 meq/ Multivitamins 10 ml/Amino Acids/ Dextrose 1,202.9462 ml @ 49 mls/hr [id number] IV 12/31/23 22:00 01/01/24 21:59 12/31/23 22:27 49 MLS/HR Furosemide 40 mg BIDD IV 12/31/23 18:00 01/01/24 17:47 40 MG Cefepime HCl 50 ml @ 12.5 mls/hr Q8HR IV 01/01/24 14:00 01/01/24 14:26 12.5 MLS/HR Vancomycin HCl 0 ml @ 0 mls/hr UD IV 01/01/24 12:15 Fat Emulsion Intravenous 50 ml/ Potassium Chloride 40 meq/ Potassium Acetate 20 meq/Potassium Phosphate 44 meq/ Calcium Gluconate 2.3 meq/Magnesium Sulfate 12 meq/ Multivitamins 10 ml/Amino Acids/ Dextrose 1,207.9462 ml @ 50 mls/hr [id number] IV 01/01/24 22:00 01/02/24 21:59 Vancomycin HCl 200 ml @ 200 mls/hr Q14H IV 01/02/24 05:00 objective General: Well-built, afebrile, palor, mucosae are moist Cardiovascular: Regular S1 and S2. No murmurs, gallops or rubs. No JVD elevation. No pedal edema Respiratory: Normal B/L air entry on room air. Clear lung sounds on auscultation Abdomen: Soft, nontender, mildly tender, normoactive bowel sounds, no rebound tenderness, no organomegaly, no masses Genitourinary: Deferred MSK/skin: Mobilizes 4 limbs. Skin is dry and warm. No rash or bite dong seen in lower or upper extremities. Neurological: No motor, no sensitive deficits, normal speech. Pupils are isocoric and reactive. Psych/Mental Status: A/Ox4, mood is appropriate. 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
[2024-01-01] MEDS: TPN PER PHARMACY IV NR (21:49)
[2024-01-02] VITALS (102 sets, daily range): BP systolic 71–147; BP diastolic 42–97; PULSE 75–135; RESP 13–36; TEMP 96.8–100.2; O2SAT 92–100
[2024-01-02 03:48] LABS: White Blood Cell 19.8 10^3/uL (4.4-10.8)
[2024-01-02 03:50] LABS: Hematocrit 31.1 % (36.0-46.0); Mean Corpuscular Hemoglobin 24.9 pg (28.0-32.0); Mean Corpuscular Hgb Conc. 32.1 g/dL (32.0-36.0); Mean Corpuscular Volume 77.7 fL (80.0-100.0); Platelet Count (auto) 198 10^3/uL (140-450); Red Blood Cells 4.01 10^6/uL (4.0-5.20); Red Cell Distribution Width 25.4 % (11.8-14.3)
[2024-01-02 03:54] LABS: Band Neutrophils % (manual) 0; Basophils % (manual) 0 (0.0-2.0); Blast Cells 0; Eosinophils % (manual) 0 (0-7); Metamyelocytes % 0; Myelocytes % 0; Promyelocytes % 0; Reactive Lymphocytes 0
[2024-01-02 04:00] LABS: Alanine Aminotransferase 90 U/L (7-40); Albumin 2.7 g/dL (3.2-4.8); Alkaline Phosphatase 326 U/L (46-116); Anion Gap 5 (5-15); Aspartate Aminotransferase 325 U/L (13-40); BUN/Creatinine Ratio 85.3 (10.0-20.0); Bilirubin, Total 2.8 mg/dL (0.2-1.0); Blood Urea Nitrogen 29 mg/dL (9-23); Calcium 8.2 mg/dL (8.7-10.4); Carbon Dioxide 30 mmol/L (20-31); Chloride 109 mmol/L (98-107); Glucose 139 mg/dL (74-106); Magnesium 2.4 mg/dL (1.6-2.6); Phosphorus 3.3 mg/dL (2.4-5.1); Potassium 3.6 mmol/L (3.5-5.1); Sodium 144 mmol/L (136-145); Total Protein 5.6 g/dL (5.7-8.2)
[2024-01-02 04:56] LABS: Lymphocytes % (manual) 3 (10.0-50.0); Monocytes % (manual) 6 (0-12); Ovalocytes FEW
[2024-01-02 04:59] LABS: Platelet Estimate Adequate
[2024-01-02 05:00] LABS: Target Cell FEW
[2024-01-02] MEDS: VANCOMYCIN 1GM/250ML KIT 200 ML IV SCH (05:13)
--- NOTE | 2024-01-02 05:47 | DVH ---
EXAM: XY CHEST XRAY 1 VIEW Indication:dyspnea Technique: Single frontal view of the chest was obtained Comparison: XY CHEST XRAY 1 VIEW on DOS: 01/01/24, XY CHEST XRAY 1 VIEW on DOS: 12/31/23, XY CHEST PO RTABLE on DOS: 12/30/23, XY CHEST XRAY 1 VIEW on DOS: 12/30/23, XY CHEST PORTABLE on DOS: 12/29/23, X Y CHEST XRAY 1 VIEW on DOS: 01/01/24 FINDINGS: Lines and Tubes: Endotracheal tube, enteric catheter and right central venous catheter and left chest wall AICD in satisfactory position. Lungs: Low lung volumes. Pleura: No effusion. No pneumothorax. Cardiomediastinal contours: Unremarkable Bones: Unremarkable IMPRESSION: Lines and tubes in satisfactory position. No significant interval change.
[2024-01-02 06:19] LABS: Base Excess 2.2 mmol/L (-2.0-3.0)
[2024-01-02] MEDS: POTASSIUM CHL 20MEQ/100ML 100 ML IV SCH (12:33)
--- NOTE | 2024-01-02 12:48 | DVHPNRES ---
Progress Note Date Seen: Jan 02, 2024 Resident Creating Document: ABELINO HUFF RESIDENT Medical Necessity Reason Pt with a Central, PICC or Fol: Yes The following are medically ne: PICC Line, Davies Catheter Reason for davies catheter: Strict I&O Subjective Review of Systems A 63-year-old female patient with PMHx of systolic heart failure status post Medtronic ICD placement -last EF 35% in September2023, CAD status post 4 RYAN in January 2018 , dyslipidemia, recurrent UTIs and pyelonephritis for the past 4 months, hypertension and internal hemorrhoids presented to the ER with a chief complaint of suprapubic abdominal pain and constipation. Patient recently visited [facility] in August this year with her when she went to the [place] barefoot and had bite dong all over the body, following which she has been getting recurrent UTIs and pyelonephritis starting September, also reports dry cough since the visit. She reports that the abdominal pain started 12/10 and is associated with tenesmus, she only passes small pellet-like stools associated with mucus and a lot of flatus. Also reports history of internal hemorrhoids and that she is experiencing bright red bleed per rectum for the past few days. She denies lifetime history of colonoscopy/endoscopy. Reports nausea, chills on and off but no fever. Denies lifetime history of STI, is monogamous with the . Her did not get any symptoms after the trip. PCP Jodie Rico Director Hr Communications: [employer] Dr Schrader Past surgical history; Partial hysterectomy Family history: Unremarkable Social history: Lives with , denies smoking, drank heavily during the vacation - quit since, denies illicit drug 12/17 - Patient seen and examined in bed [address]. reports no acute distress, went to have a bowel movement but only passed gas/mucus and a small stool. She has laboratory reports with her from the past, shows transaminitis starting in 07/10. 12/18 - patient reported no active complaint, undergoing sigmoidoscopy today. Blood pressure is 89/50, IV NS bolus of 500 cc and 250 cc afterwards administered. Blood pressure did not responded to IV fluids. Scheduled for image guided liver biopsy on 12/21 by IR. 12/20 - patient feels fine. Tolerating clear liquid diet. Developing pitting edema, starting midodrine t.i.d. 12/21 - patient reports feeling fine, no acute complaint. Lower extremity pitting edema noticed on exam. Bilateral breath sounds are clear on auscultation. Underwent ultrasound-guided liver biopsy. Patient tolerated procedure well. Stress test is scheduled for tomorrow. NPO starting midnight. Cardiology discontinued midodrine. 12/22- patient reports not getting adequate sleep. Underwent stress test today, negative for ischemia, Large anterior anteroseptal and apical wall infarction without evidence of ischemia. Moderately severe reduced ejection fraction at 38%. 12/23 - no acute distress. Cardiology started Jardiance 10 mg daily increase the dose of Entresto to b.i.d.. Surgeon Dr. Tom - possible colectomy tomorrow, patient has moderate to high risk for colorectal surgery per Cardiology. 12/24 - patient is seen and examined at bedside. Reports no active complaint. Completed bowel prep. Underwent colectomy 12/24. 12/25 - shock is improving 2 pressors, severe metabolic acidosis, no need of reintervention today 12/26- no changes: medically improving, going down on pressors, not ready for extubation yet: ct scan with no dehiscence 12/29: mild fever, [place] cultures 12/30 failed cpap trial 12/31 fevers, wbc trending high, change in AB, cpap trial for 8 h 12/22 no fever, AMS: new ct scan ordered Objective vital signs Vital Sign Date Time Temp Pulse Resp B/P (MAP) Pulse Ox O2 Delivery O2 Flow Rate FiO2 01/02/24 11:45 97.5 125 22 113/67 (82) 94 207.5 01/02/24 11:42 35 01/02/24 10:00 Mechanical Ventilator+ Total Intake and Output 01/01/24 01/01/24 01/02/24 15:00 23:00 07:00 Intake Total 462.441 ml 889.004 ml 768.440 ml Output Total 1270 ml 900 ml Balance 462.441 ml -380.996 ml -131.560 ml medications Current Medications Medications Dose Ordered Sig/Saige Route Start Time Stop Time Status Last Admin Dose Admin Sodium Chloride 10 ml Q8HR IV 12/17/23 22:00 01/02/24 05:14 10 ML Midazolam HCl 50 ml @ 1 mls/hr Q24H IV 12/25/23 12:30 12/31/23 04:43 7 MLS/HR Fentanyl Citrate 250 ml @ 2.5 mls/hr Q24H IV 12/25/23 12:30 01/01/24 12:51 5 MLS/HR Nitroglycerin 0.4 mg Q5MINP PRN SL 12/25/23 16:00 Vasopressin 20 units/Sodium Chloride 100 ml @ 9 mls/hr Q11H7M IV 12/25/23 17:15 12/29/23 11:50 9 MLS/HR Phenylephrine HCl 250 ml @ 30 mls/hr Q8H20M IV 12/25/23 17:15 12/26/23 00:42 48.75 MLS/HR Epinephrine HCl 250 ml @ 7.5 mls/hr Q24H IV 12/25/23 18:30 Pantoprazole Sodium 40 mg DAILY IV 12/26/23 10:00 01/02/24 09:47 40 MG Ipratropium [place] 0.5 mg Q6HR NEB 12/27/23 18:00 Cancel Norepinephrine Bitartrate 32 mg/ Sodium Chloride 250 ml @ 0.938 mls/ hr Q24H IV 12/27/23 14:45 01/01/24 16:27 0.938 MLS/HR Amino Acids 0 ml @ 0 mls/hr PER PHARMACY IV 12/28/23 12:00 Diagnostic Test (Pha) 1 strip Q6HR 12/28/23 18:00 01/02/24 12:34 1 STRIP Insulin Human Regular FOLLOW SLIDING SCALE Q6HR SC 12/28/23 18:00 01/02/24 12:40 2 UNITS Dextrose 50 ml UD IV 12/28/23 13:00 Insulin Glargine 15 units DAILY@1000 SC 12/29/23 12:15 01/02/24 09:53 15 UNITS Enoxaparin Sodium 40 mg DAILY SC 12/29/23 12:15 01/02/24 09:48 40 MG Furosemide 40 mg BIDD IV 12/31/23 18:00 01/02/24 05:13 40 MG Cefepime HCl 50 ml @ 12.5 mls/hr Q8HR IV 01/01/24 14:00 01/02/24 05:13 12.5 MLS/HR Vancomycin HCl 0 ml @ 0 mls/hr UD IV 01/01/24 12:15 Fat Emulsion Intravenous 50 ml/ Potassium Chloride 40 meq/ Potassium Acetate 20 meq/Potassium Phosphate 44 meq/ Calcium Gluconate 2.3 meq/Magnesium Sulfate 12 meq/ Multivitamins 10 ml/Amino Acids/ Dextrose 1,207.9462 ml @ 50 mls/hr [id number] IV 01/01/24 22:00 01/02/24 21:59 01/01/24 21:49 50 MLS/HR Vancomycin HCl 200 ml @ 200 mls/hr Q14H IV 01/02/24 05:00 01/02/24 05:13 200 MLS/HR Dexmedetomidine HCl 400 mcg/ Dextrose 100 ml @ 4.065 mls/ hr Q24H IV 01/02/24 08:30 Potassium Chloride 100 ml @ 50 mls/hr Q2H IV 01/02/24 11:45 01/02/24 15:44 01/02/24 12:33 50 MLS/HR Fat Emulsion Intravenous 50 ml/ Potassium Phosphate 44 meq/ Calcium Gluconate 2.3 meq/Magnesium Sulfate 8 meq/ Multivitamins 10 ml/Amino Acids/ Dextrose 1,176.9462 ml @ 49 mls/hr Q24H2M IV 01/02/24 22:00 01/03/24 21:59 Examination General: ETT palor, mucosae are moist Cardiovascular: Regular S1 and S2. No murmurs, gallops or rubs. No JVD elevation. No pedal edema Respiratory: Normal B/L air entry on room air. Clear lung sounds on auscultation Abdomen: Surgical wound clean, clear fluid leaking from one of the maureen Soft, nontender, mildly tender, normoactive bowel sounds, no rebound tenderness, no organomegaly, no masses MSK/skin: Skin is dry and warm. No rash or bite dong seen in lower or upper extremities. laboratory and microbiology Laboratory Tests 01/02/24 03:29 Test 01/02/24 03:29 Range/Units Serum Glucose 139 H 74-106 mg/dL Microbiology Date/Time Source Procedure Growth Status 12/30/23 20:08 Sputum Expectorated Sputum Gram Stain - Final Complete 12/30/23 20:08 Respiratory Culture - Final Enterobacter cloacae Complete 12/30/23 15:35 Blood Blood Culture - Preliminary NO GROWTH AFTER 48 HOURS OF INCUBATION. Resulted 12/30/23 12:00 Voided Urine Urine Culture - Final Complete 12/25/23 16:11 Nose MRSA Screen - Final Complete 12/18/23 13:03 Stool Stool Culture - Final Complete 12/18/23 13:03 Stool Shiga Toxin I & II - Final Complete Problem List/Assessment/Plan Problem List/Assessment/Plan NEUROLOGY RASS -4 Pt off sedation, no following commands New head ct scan CARDIOLOGY septic shock? shock also secondary to metastatic sigmoid adenocarcinoma status post left colon resection with primary anastomosis 12/24 - intubated and mechanically ventilated 12/24 and Pt is on levophed 9 , previously patient was on vasopressin, epinephrin and phenylephrine shock is improving mild fever today: pancultures pending results change in AB: cefepime + vanco History of CAD status post PTCA with 4 stents in January 2018 at [facility] Chronic systolic heart failure status post Medtronic ICD - NSTEMI II Echocardiogram showed moderately dilated left ventricular. Severely reduced left ventricular systolic function with estimated ejection fraction of 35%. There is anterior anteroapical wall akinesia. EKG completed, reviewed - no ST changes. Cardiology consultation - underwent stress test 12/22 which showed large anterior anteroseptal and apical wall infarction without evidence of ischemia. Moderately severe reduced ejection fraction at 38%. Troponin 48, 42 downtrending Hold on Entresto 24/26 mg b.i.d., Jardiance 10 mg daily per cardiology RESPIRATORY Acute respiratory failure due to Distributive/ vasodilatory shock secondary to status post left colon resection Due to the need of pressors at the time of surgery, patient was not extubated in the OR cpap trial 8h Xray no consolidations at the time, bilateral pleural effusion no consolidation sputum positive Enterobacter cloacae No consolidation at this time Pt is on meropenem mild fever today: pancultures 2 cultures positive for e cloacae wbc trending high GI s/p left colectomy 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 Tom - underwent left colon resection with primary anastomosis on 12/24. Patient required pressor support. [address] scan didn't show dehiscence or abscess Patient underwent US-guided right hepatic lobe mass single kwon core obtained 12/21. Pathology results pending. CT abdomen completed with contrast shows a 6 cm segment of the sigmoid colon demonstrating irregular wall thickening suspicious for primary colon malignancy. GI consulted - Flexible sigmoidoscopy with biopsy identified circumferential polypoid ulcerated inflamed and partially obstructing distal descending colon mass close to the proximal sigmoid at about 45-50 cm above the anal verge. 1+ internal hemorrhoids. She denies lifetime history of colonoscopy/endoscopy. Recent travel history to [facility]. H&H 9.3/28.8, hematocrit 77 - Iron panel remarkable for low iron/low % saturation/normal TIBC Tumor markers CEA 326, AFP 2 Transaminitis secondary to metastatic colon cancer CT scan abdomen with contrast shows enlarged liver with numerous poorly enhancing hepatic lesions with the larger lesions measuring greater than 12 cm. Suspicious for metastatic lesions. Liver ultrasound completed [id number] left liver lobe soft tissue mass tried hepatomegaly with increased hepatic echogenicity seen. Blood alcohol level <3 Pt is on TPN /RENAL KENNA due to shock resolving severe metabolic acidosis non anion gap resolved Low urinary output improving Nephrology on board Furosemide 40 mg IV bid urine culture negative Case discussed with Dr Hall Time spent in critical care 76 min Full code Plan discussed with: Spouse, Other (rn) My Orders My Orders Orders - ABELINO HUFF RESIDENT Procedure Category Date Status Time Vancomycin 1gm/200ml PHA 01/02/24 In Process Premix 05:00 Vancomycin,Trough LAB 01/03/24 Verified 08:00 Vancomycin Per [facility] 01/03/24 In Process Pharmacy Protoc 09:00 Chest Xray 1 View XY 01/02/24 Resulted 04:00 Abg W/ Co-Ox RT 01/02/24 Logged 06:00 D5w 5% (Dextrose 5%) PHA 01/02/24 In Process W/Dexmedetomidine 08:[address] 01/02/24 Logged 11:45 Potassium Chl PHA 01/02/24 In Process 20meq/100ml 11:45 Dietary Evaluation Review Comments: 1) Advance pt diet when medically feasible to a Cardiac diet 2) Continue current plan of care Expected Outcomes/Goals: 1) F/U in 3-5 days Date of Service: Jan 02, 2024 Billing Provider: LEO HALL MD Common Visit Codes: 33910-[id number] CARE 30-74 MIN ABELINO HUFF RESIDENT Jan 02, 2024 12:48 LEO HALL MD Jan 02, 2024 13:45
--- NOTE | 2024-01-02 16:04 | DVH ---
EXAM: CT HEAD WITHOUT CONTRAST INDICATION: ams TECHNIQUE: CT of the head without intravenous contrast. Radiation dose : Head: CT Dose: CTDI volume is 48 mGy. Dose-length product is 881.86 mGy*cm The dose indicators for CT are the volume computed tomography (CT) dose index (CTDIvol) and the dose length product (DLP), and are measured in units of mGy and mGy-cm, respectively. These indicators are not patient dose, but values generated from the CT scanner acquisition factors. The report includes radiation exposure data for exposures received during this examination. COMPARISON: None FINDINGS: There is no evidence of acute intracranial hemorrhage, extra-axial collection, mass effect, midline s hift, herniation or hydrocephalus. Mild cerebral atrophy. The simmons-white differentiation is intact. Patchy periventricular and subcortical white matter hypoattenuation is nonspecific but may be related to small vessel ischemic disease. The visualized paranasal sinuses and mastoid air cells are clear. The surrounding soft tissues and osseous structures are unremarkable. IMPRESSION: 1. No acute intracranial abnormality. Mild cerebral atrophy. Radiation optimization: All CT scans at this facility use at least one of these dose optimization alan hniques: Automated exposure control mA and/or kV adjustment per patient size (includes targeted exams where dose is matched to clinical indication) or iterative reconstruction. HS:Y
--- NOTE | 2024-01-02 16:28 | DVHPN2 ---
Progress Note Date Seen: Jan 02, 2024 Medical Necessity Reason Pt with a Central, PICC or Fol: Yes The following are medically ne: PICC Line, Davies Catheter Reason for davies catheter: Strict I&O Objective vital signs Vital Sign Date Time Temp Pulse Resp B/P (MAP) Pulse Ox O2 Delivery O2 Flow Rate FiO2 01/02/24 16:02 116 24 102/55 (71) 95 35 01/02/24 14:45 97.9 208.2 01/02/24 14:00 Mechanical Ventilator+ Total Intake and Output 01/01/24 01/01/24 01/02/24 15:00 23:00 07:00 Intake Total 462.441 ml 889.004 ml 768.440 ml Output Total 1270 ml 900 ml Balance 462.441 ml -380.996 ml -131.560 ml medications Current Medications Medications Dose Ordered Sig/Saige Route Start Time Stop Time Status Last Admin Dose Admin Sodium Chloride 10 ml Q8HR IV 12/17/23 22:00 01/02/24 14:24 10 ML Midazolam HCl 50 ml @ 1 mls/hr Q24H IV 12/25/23 12:30 12/31/23 04:43 7 MLS/HR Fentanyl Citrate 250 ml @ 2.5 mls/hr Q24H IV 12/25/23 12:30 01/01/24 12:51 5 MLS/HR Nitroglycerin 0.4 mg Q5MINP PRN SL 12/25/23 16:00 Vasopressin 20 units/Sodium Chloride 100 ml @ 9 mls/hr Q11H7M IV 12/25/23 17:15 12/29/23 11:50 9 MLS/HR Phenylephrine HCl 250 ml @ 30 mls/hr Q8H20M IV 12/25/23 17:15 12/26/23 00:42 48.75 MLS/HR Epinephrine HCl 250 ml @ 7.5 mls/hr Q24H IV 12/25/23 18:30 Pantoprazole Sodium 40 mg DAILY IV 12/26/23 10:00 01/02/24 09:47 40 MG Ipratropium [place] 0.5 mg Q6HR NEB 12/27/23 18:00 Cancel Norepinephrine Bitartrate 32 mg/ Sodium Chloride 250 ml @ 0.938 mls/ hr Q24H IV 12/27/23 14:45 11/14/24 16:27 0.938 MLS/HR Amino Acids 0 ml @ 0 mls/hr PER PHARMACY IV 12/28/23 12:00 Diagnostic Test (Pha) 1 strip Q6HR 12/28/23 18:00 01/02/24 12:34 1 STRIP Insulin Human Regular FOLLOW SLIDING SCALE Q6HR SC 12/28/23 18:00 01/02/24 12:40 2 UNITS Dextrose 50 ml UD IV 12/28/23 13:00 Insulin Glargine 15 units DAILY@1000 SC 12/29/23 12:15 01/02/24 09:53 15 UNITS Enoxaparin Sodium 40 mg DAILY SC 12/29/23 12:15 01/02/24 09:48 40 MG Furosemide 40 mg BIDD IV 12/31/23 18:00 01/02/24 05:13 40 MG Cefepime HCl 50 ml @ 12.5 mls/hr Q8HR IV 01/01/24 14:00 01/02/24 14:24 12.5 MLS/HR Vancomycin HCl 0 ml @ 0 mls/hr UD IV 01/01/24 12:15 Fat Emulsion Intravenous 50 ml/ Potassium Chloride 40 meq/ Potassium Acetate 20 meq/Potassium Phosphate 44 meq/ Calcium Gluconate 2.3 meq/Magnesium Sulfate 12 meq/ Multivitamins 10 ml/Amino Acids/ Dextrose 1,207.9462 ml @ 50 mls/hr [id number] IV 01/01/24 22:00 01/02/24 21:59 01/01/24 21:49 50 MLS/HR Vancomycin HCl 200 ml @ 200 mls/hr Q14H IV 01/02/24 05:00 01/02/24 05:13 200 MLS/HR Dexmedetomidine HCl 400 mcg/ Dextrose 100 ml @ 4.065 mls/ hr Q24H IV 01/02/24 08:30 Fat Emulsion Intravenous 50 ml/ Potassium Phosphate 44 meq/ Calcium Gluconate 2.3 meq/Magnesium Sulfate 8 meq/ Multivitamins 10 ml/Amino Acids/ Dextrose 1,176.9462 ml @ 49 mls/hr Q24H2M IV 01/02/24 22:00 01/03/24 21:59 laboratory and microbiology Laboratory Tests 01/02/24 03:29 Test 01/02/24 03:29 Range/Units Serum Glucose 139 H 74-106 mg/dL Microbiology Date/Time Source Procedure Growth Status 12/30/23 20:08 Sputum Expectorated Sputum Gram Stain - Final Complete 12/30/23 20:08 Respiratory Culture - Final Enterobacter cloacae Complete 12/30/23 15:35 Blood Blood Culture - Preliminary NO GROWTH AFTER 72 HOURS OF INCUBATION. Resulted 12/30/23 12:00 Voided Urine Urine Culture - Final Complete 12/25/23 16:11 Nose MRSA Screen - Final Complete 12/18/23 13:03 Stool Stool Culture - Final Complete 12/18/23 13:03 Stool Shiga Toxin I & II - Final Complete Problem List/Assessment/Plan Problem List/Assessment/Plan INTUBATED HEMODYNAMICALLY BETTER ON NO VASOPRESSOR SUPPORT H/H STABLE LACTATE DOWN NO ACTIVE BLEED ABD SOFT LESS DISTENDED NO BM FLATUS + WBC UP URINE OUTPUT BETTER ON LASIX NEPHROLOGY EVAL ONGOING CONTINUE CLOSE OBSERVATION SUPPORTIVE CARE HOLD STEROIDS ALLERGY REACTION TO PREVIOUS ISLAND DRESSING SAME NURSE AT BEDSIDE FAMILY AT BEDSIDE HER CRITICAL CONDITION EXPLAINED ALL QUESTIONS ANSWERED Plan discussed with: Patient, Other My Orders My Orders Orders - NEGIN BUCKLEY MD Procedure Category Date Status Time Amino Acid PHA 01/02/24 In Process Infusion... W/Fat 22:00 Comprehensive LAB 01/03/24 Verified Metabolic Panel 04:00 Magnesium LAB 01/03/24 Verified 04:00 Phosphorus LAB 01/03/24 Verified 04:00 Tpn Per Pharmacy [facility] 01/02/24 In Process 22:00 Dietary Evaluation Review Comments: 1) Advance pt diet when medically feasible to a Cardiac diet 2) Continue current plan of care Expected Outcomes/Goals: 1) F/U in 3-5 days NEGIN BUCKLEY MD Jan 02, 2024 16:28
--- NOTE | 2024-01-02 16:52 | DVHTSRES ---
Transfer Summary Transfer Summary Resident Creating Document: ABELINO HUFF RESIDENT Date of Admission Dec 17, 2023 at 21:54 Date of Transfer: Jan 02, 2024 Transfer Diagnosis s/p colectomy colon cancer + liver mets spetic shock? Brief Hx & Hospital Course: Pt with PMHx HFrEF due to CAD, pt has ICD, newly diagnosed colon cancer with liver mets, surgery on dec 25, now on levophed and mechanical ventilation, patient is tolerating cpap trials but due to mental status, head ct scan was ordered to check mental status Pt is on vanco cefepime, changed from meropenem due to fevers and wbc trending high culture positive for e cloacae 2 CT scan after the surgery: no intrabdominal colections, no dehiscence Transfer Status unstable ABELINO HUFF RESIDENT Jan 02, 2024 16:52
--- NOTE | 2024-01-02 18:55 | DVHPN2 ---
Progress Note - Dictate Date Seen: Jan 02, 2024 Medical Necessity Reason Pt with a Central, PICC or Fol: Yes The following are medically ne: PICC Line, Davies Catheter Reason for davies catheter: Strict I&O Subjective Patient postop day # 8 S/P left colon resection and removal of sigmoid/descending colon tumor Patient seen in ICU intubated sedated; FiO2 35% with a PEEP of five Patient is running a low-grade fever; sputum culture showed some Gram-negative rods, Enterobacter cloaca Leukocytosis and lactic acidosis improving Patient has moderate elevation in liver enzymes trending downwards slowly; underlying liver metastases Fever has defervesced today Sputum culture is growing Enterobacter cloaca vital signs Vital Sign Date Time Temp Pulse Resp B/P (MAP) Pulse Ox O2 Delivery O2 Flow Rate FiO2 01/02/24 18:38 117/75 01/02/24 18:00 115 01/02/24 18:00 35 01/02/24 18:00 23 97 Mechanical Ventilator+ 01/02/24 14:45 97.9 208.2 Total Intake and Output 01/01/24 01/01/24 01/02/24 15:00 23:00 07:00 Intake Total 462.441 ml 889.004 ml 768.440 ml Output Total 1270 ml 900 ml Balance 462.441 ml -380.996 ml -131.560 ml medications Current Medications Medications Dose Ordered Sig/Saige Route Start Time Stop Time Status Last Admin Dose Admin Sodium Chloride 10 ml Q8HR IV 12/17/23 22:00 01/02/24 14:24 10 ML Midazolam HCl 50 ml @ 1 mls/hr Q24H IV 12/25/23 12:30 12/31/23 04:43 7 MLS/HR Fentanyl Citrate 250 ml @ 2.5 mls/hr Q24H IV 12/25/23 12:30 01/01/24 12:51 5 MLS/HR Nitroglycerin 0.4 mg Q5MINP PRN SL 12/25/23 16:00 Vasopressin 20 units/Sodium Chloride 100 ml @ 9 mls/hr Q11H7M IV 12/25/23 17:15 12/29/23 11:50 9 MLS/HR Phenylephrine HCl 250 ml @ 30 mls/hr Q8H20M IV 12/25/23 17:15 12/26/23 00:42 48.75 MLS/HR Epinephrine HCl 250 ml @ 7.5 mls/hr Q24H IV 12/25/23 18:30 Pantoprazole Sodium 40 mg DAILY IV 12/26/23 10:00 01/02/24 09:47 40 MG Ipratropium [place] 0.5 mg Q6HR NEB 12/27/23 18:00 Cancel Norepinephrine Bitartrate 32 mg/ Sodium Chloride 250 ml @ 0.938 mls/ hr Q24H IV 12/27/23 14:45 01/01/24 16:27 0.938 MLS/HR Amino Acids 0 ml @ 0 mls/hr PER PHARMACY IV 12/28/23 12:00 Diagnostic Test (Pha) 1 strip Q6HR 12/28/23 18:00 01/02/24 18:34 1 STRIP Insulin Human Regular FOLLOW SLIDING SCALE Q6HR SC 12/28/23 18:00 01/02/24 12:40 2 UNITS Dextrose 50 ml UD IV 12/28/23 13:00 Insulin Glargine 15 units DAILY@1000 SC 12/29/23 12:15 01/02/24 09:53 15 UNITS Enoxaparin Sodium 40 mg DAILY SC 12/29/23 12:15 01/02/24 09:48 40 MG Furosemide 40 mg BIDD IV 12/31/23 18:00 01/02/24 18:38 40 MG Cefepime HCl 50 ml @ 12.5 mls/hr Q8HR IV 01/01/24 14:00 01/02/24 14:24 12.5 MLS/HR Vancomycin HCl 0 ml @ 0 mls/hr UD IV 01/01/24 12:15 Fat Emulsion Intravenous 50 ml/ Potassium Chloride 40 meq/ Potassium Acetate 20 meq/Potassium Phosphate 44 meq/ Calcium Gluconate 2.3 meq/Magnesium Sulfate 12 meq/ Multivitamins 10 ml/Amino Acids/ Dextrose 1,207.9462 ml @ 50 mls/hr [id number] IV 01/01/24 22:00 01/02/24 21:59 01/01/24 21:49 50 MLS/HR Vancomycin HCl 200 ml @ 200 mls/hr Q14H IV 01/02/24 05:00 01/02/24 18:46 200 MLS/HR Dexmedetomidine HCl 400 mcg/ Dextrose 100 ml @ 4.065 mls/ hr Q24H IV 01/02/24 08:30 Fat Emulsion Intravenous 50 ml/ Potassium Phosphate 44 meq/ Calcium Gluconate 2.3 meq/Magnesium Sulfate 8 meq/ Multivitamins 10 ml/Amino Acids/ Dextrose 1,176.9462 ml @ 49 mls/hr Q24H2M IV 01/02/24 22:00 01/03/24 21:59 objective General: Well-built, afebrile, palor, mucosae are moist; intubated and sedated Cardiovascular: Regular S1 and S2. No murmurs, gallops or rubs. No JVD elevation. No pedal edema Respiratory: Normal B/L air entry on room air. Clear lung sounds on auscultation Abdomen: Soft, nontender, mildly tender, normoactive bowel sounds, no rebound tenderness, no organomegaly, no masses Genitourinary: Deferred MSK/skin: Mobilizes 4 limbs. Skin is dry and warm. No rash or bite dong seen in lower or upper extremities. Neurological: No motor, no sensitive deficits, normal speech. Pupils are isocoric and reactive. Psych/Mental Status: A/Ox4, mood is appropriate. laboratory and microbiology Laboratory Tests 01/02/24 03:29 Test 01/02/24 03:29 Range/Units Serum Glucose 139 H 74-106 mg/dL Problems(with codes): (1) Shock liver (2) Elevated liver enzymes (3) Lactic acidosis (4) Adenocarcinoma of sigmoid colon (5) Metastatic adenocarcinoma to liver (6) Sigmoid stricture (7) Abnormal finding on GI tract imaging (8) Heart failure with reduced ejection fraction (9) History of MN (myocardial infarction) (10) SIRS (systemic inflammatory response syndrome) Prognosis Plan Continue IV antibiotics, IV vancomycin added Continue IV TPN Continue supportive care Overall prognosis still remains guarded all the patient is showing slight improvement Dietary Evaluation Review Comments: 1) Advance pt diet when medically feasible to a Cardiac diet 2) Continue current plan of care Expected Outcomes/Goals: 1) F/U in 3-5 days Plan discussed with: Other (Dr Marco Buckley) ROD BUCKLEY MD Jan 02, 2024 18:55
[2024-01-02] MEDS: TPN PER PHARMACY IV NR (21:48)
[2024-01-03] VITALS (108 sets, daily range): BP systolic 83–151; BP diastolic 46–89; PULSE 60–126; RESP 13–36; TEMP 96.3–101.3; O2SAT 93–100
[2024-01-03 04:42] LABS: Alanine Aminotransferase 90 U/L (7-40); Albumin 2.8 g/dL (3.2-4.8); Alkaline Phosphatase 340 U/L (46-116); Anion Gap 8 (5-15); Aspartate Aminotransferase 306 U/L (13-40); BUN/Creatinine Ratio 91.4 (10.0-20.0); Bilirubin, Total 3.4 mg/dL (0.2-1.0); Blood Urea Nitrogen 32 mg/dL (9-23); Calcium 8.2 mg/dL (8.7-10.4); Carbon Dioxide 27 mmol/L (20-31); Chloride 109 mmol/L (98-107); Glucose 141 mg/dL (74-106); Magnesium 2.5 mg/dL (1.6-2.6); Phosphorus 4.1 mg/dL (2.4-5.1); Potassium 4.4 mmol/L (3.5-5.1); Sodium 144 mmol/L (136-145)
[2024-01-03 04:43] LABS: Total Protein 5.7 g/dL (5.7-8.2)
--- NOTE | 2024-01-03 05:33 | DVH ---
EXAM: XY CHEST XRAY 1 VIEW Indication:dyspnea Technique: Single frontal view of the chest was obtained Comparison: XY CHEST XRAY 1 VIEW on DOS: 01/02/24, XY CHEST XRAY 1 VIEW on DOS: 01/01/24, XY CHEST XR AY 1 VIEW on DOS: 12/31/23, XY CHEST PORTABLE on DOS: 12/30/23, XY CHEST XRAY 1 VIEW on DOS: 12/30/23 FINDINGS: Lines and Tubes: Endotracheal tube, enteric tube and right internal jugular central venous catheter t ips project in appropriate position. Cardiac pacemaker projects over the left chest wall. Lungs: Low lung volumes with bibasilar atelectasis. Pleura: No effusion. No pneumothorax. Cardiomediastinal contours: Unremarkable Bones: No acute osseous abnormality. IMPRESSION: No significant change compared to prior exam.
[2024-01-03 06:10] LABS: Basophils # (auto) 0.2 10 ^3/uL (0-0.2); Hemoglobin 9.7 g/dL (12.2-16.2); Neutrophils % (auto) 82.3 % (37.0-80.0); Platelet Count (auto) 260 10^3/uL (140-450)
[2024-01-03 06:14] LABS: Eosinophils # (auto) 0 10 ^3/uL (0-0.8); Eosinophils % (auto) 0.1 % (0.0-7.0); Hematocrit 30.1 % (36.0-46.0); Lymphocytes # (auto) 1.2 10 ^3/uL (0.4-5.4); Lymphocytes % (auto) 4.8 % (10.0-50.0); Mean Corpuscular Hemoglobin 25.1 pg (28.0-32.0); Mean Corpuscular Hgb Conc. 32.2 g/dL (32.0-36.0); Mean Corpuscular Volume 77.9 fL (80.0-100.0); Monocytes # (auto) 2.8 10 ^3/uL (0-1.3); Monocytes % (auto) 11.8 % (0.0-12.0); Neutrophils # (auto) 19.8 10 ^3/uL (1.6-8.6); Nucleated Red Blood Cells % 0.2 %; Red Blood Cells 3.86 10^6/uL (4.0-5.20); White Blood Cell 24.1 10^3/uL (4.4-10.8)
[2024-01-03 06:16] LABS: Red Cell Distribution Width 25.2 % (11.8-14.3)
[2024-01-03 07:16] LABS: Base Excess -0.1 mmol/L (-2.0-3.0)
[2024-01-03 08:03] LABS: Anisocytosis Moderate; Platelet Estimate Adequate; Tear Drop Cells FEW
--- NOTE | 2024-01-03 13:43 | DVHPN2 ---
Progress Note Date Seen: Jan 03, 2024 Medical Necessity Reason Pt with a Central, PICC or Fol: Yes The following are medically ne: PICC Line, Davies Catheter Reason for davies catheter: Strict I&O Objective vital signs Vital Sign Date Time Temp Pulse Resp B/P (MAP) Pulse Ox O2 Delivery O2 Flow Rate FiO2 01/03/24 13:30 98.8 60 22 104/55 (71) 100 209.8 01/03/24 12:00 Mechanical Ventilator+ 35 35 Total Intake and Output 01/02/24 01/02/24 01/03/24 15:00 23:00 07:00 Intake Total 651.563 ml 553.188 ml 558.359 ml Output Total 610 ml 1100 ml Balance 651.563 ml -56.812 ml -541.641 ml medications Current Medications Medications Dose Ordered Sig/Saige Route Start Time Stop Time Status Last Admin Dose Admin Sodium Chloride 10 ml Q8HR IV 12/17/23 22:00 01/03/24 06:13 10 ML Midazolam HCl 50 ml @ 1 mls/hr Q24H IV 12/25/23 12:30 12/31/23 04:43 7 MLS/HR Fentanyl Citrate 250 ml @ 2.5 mls/hr Q24H IV 12/25/23 12:30 01/03/24 09:53 7.5 MLS/HR Nitroglycerin 0.4 mg Q5MINP PRN SL 12/25/23 16:00 Vasopressin 20 units/Sodium Chloride 100 ml @ 9 mls/hr Q11H7M IV 12/25/23 17:15 12/29/23 11:50 9 MLS/HR Phenylephrine HCl 250 ml @ 30 mls/hr Q8H20M IV 12/25/23 17:15 12/26/23 00:42 48.75 MLS/HR Epinephrine HCl 250 ml @ 7.5 mls/hr Q24H IV 12/25/23 18:30 Pantoprazole Sodium 40 mg DAILY IV 12/26/23 10:00 01/03/24 09:49 40 MG Ipratropium [place] 0.5 mg Q6HR NEB 12/27/23 18:00 Cancel Norepinephrine Bitartrate 32 mg/ Sodium Chloride 250 ml @ 0.938 mls/ hr Q24H IV 12/27/23 14:45 01/03/24 02:33 3.75 MLS/HR Amino Acids 0 ml @ 0 mls/hr PER PHARMACY IV 12/28/23 12:00 Diagnostic Test (Pha) 1 strip Q6HR 12/28/23 18:00 01/03/24 11:59 1 STRIP Insulin Human Regular FOLLOW SLIDING SCALE Q6HR SC 12/28/23 18:00 01/03/24 12:00 2 UNITS Dextrose 50 ml UD IV 12/28/23 13:00 Insulin Glargine 15 units DAILY@1000 SC 12/29/23 12:15 01/03/24 09:46 15 UNITS Enoxaparin Sodium 40 mg DAILY SC 12/29/23 12:15 01/03/24 09:47 40 MG Furosemide 40 mg BIDD IV 12/31/23 18:00 01/03/24 06:10 40 MG Cefepime HCl 50 ml @ 12.5 mls/hr Q8HR IV 01/01/24 14:00 01/03/24 06:10 12.5 MLS/HR Vancomycin HCl 0 ml @ 0 mls/hr UD IV 01/01/24 12:15 Vancomycin HCl 200 ml @ 200 mls/hr Q14H IV 01/02/24 05:00 01/03/24 09:49 200 MLS/HR Dexmedetomidine HCl 400 mcg/ Dextrose 100 ml @ 4.065 mls/ hr Q24H IV 01/02/24 08:30 01/03/24 02:27 4.065 MLS/HR Fat Emulsion Intravenous 50 ml/ Potassium Phosphate 44 meq/ Calcium Gluconate 2.3 meq/Magnesium Sulfate 8 meq/ Multivitamins 10 ml/Amino Acids/ Dextrose 1,176.9462 ml @ 49 mls/hr Q24H2M IV 01/02/24 22:00 01/03/24 21:59 01/02/24 21:48 49 MLS/HR Fat Emulsion Intravenous 50 ml/ Potassium Acetate 20 meq/Potassium Phosphate 22 meq/ Calcium Gluconate 2.3 meq/ Multivitamins 10 ml/Amino Acids/ Dextrose 1,129.9462 ml @ 47 mls/hr Q24H3M IV 01/03/24 22:00 01/04/24 19:59 laboratory and microbiology Laboratory Tests 01/03/24 05:00 01/03/24 03:56 Test 01/03/24 03:56 Range/Units Serum Glucose 141 H 74-106 mg/dL Microbiology Date/Time Source Procedure Growth Status 12/30/23 20:08 Sputum Expectorated Sputum Gram Stain - Final Complete 12/30/23 20:08 Respiratory Culture - Final Enterobacter cloacae Complete 12/30/23 15:35 Blood Blood Culture - Preliminary NO GROWTH AFTER 72 HOURS OF INCUBATION. Resulted 12/30/23 12:00 Voided Urine Urine Culture - Final Complete 12/25/23 16:11 Nose MRSA Screen - Final Complete 12/18/23 13:03 Stool Stool Culture - Final Complete 12/18/23 13:03 Stool Shiga Toxin I & II - Final Complete Problem List/Assessment/Plan Problem List/Assessment/Plan INTUBATED HEMODYNAMICALLY BETTER BUT LABILE BACK ON MINIMAL VASOPRESSOR SUPPORT H/H STABLE LACTATE PENDING NO ACTIVE BLEED ABD SOFT LESS DISTENDED NO BM FLATUS + WBC UP URINE OUTPUT BETTER ON LASIX NEPHROLOGY EVAL ONGOING CONTINUE CLOSE OBSERVATION SUPPORTIVE CARE CONSIDER REPEAT CT SCAN ABD AND PELVIS TO DETERMINE THE NEED FOR EMERGENT SURGERY INDICATED BASED ON ONGOING EVAL HOLD STEROIDS ALLERGY REACTION TO PREVIOUS ISLAND DRESSING RESOLVING NURSE AT BEDSIDE Plan discussed with: Other My Orders My Orders Orders - NEGIN BUCKLEY MD Procedure Category Date Status Time Amino Acid PHA 01/03/24 In Process Infusion... W/Fat 22:00 Comprehensive LAB 01/04/24 Verified Metabolic Panel 04:00 Magnesium LAB 01/04/24 Verified 04:00 Phosphorus LAB 01/04/24 Verified 04:00 Triglycerides LAB 01/04/24 Verified 04:00 Tpn Per Pharmacy [facility] 01/03/24 In Process 22:00 Dietary Evaluation Review Comments: 1) Advance pt diet when medically feasible to a Cardiac diet 2) Continue current plan of care Expected Outcomes/Goals: 1) F/U in 3-5 days NEGIN BUCKLEY MD Jan 03, 2024 13:42
--- NOTE | 2024-01-03 14:08 | DVHPN2 ---
Subjective chart reviewed Changes from previous H/P or p: No Changes Eyes: No Pain, No Vision change, No Conjunctivae inflammation, No Eyelid inflammation, No Other, No Redness ENT: No Ear pain, No Ear discharge, No Nose pain, No Nose discharge, No Nose congestion, No Mouth pain, No Mouth swelling, No Throat pain, No Throat swelling, No Other Cardiovascular: No Chest Pain, No Palpitations, No Orthopnea, No Paroxysmal Noc. Dyspnea, No Edema, No Lt Headedness, No Other Respiratory: Cough, Dry, Shortness of breath Gastrointestinal: Nausea; No Vomiting; Abdominal Pain; No Diarrhea, No Constipation, No Melena, No Hematochezia, No Other Genitourinary: Dysuria; No Frequency, No Incontinence, No Hematuria, No Retention, No Other Musculoskeletal: No other, No neck pain, No shoulder pain, No arm pain, No back pain, No hand pain, No leg pain, No foot pain Skin: No Rash, No Lesions, No Jaundice, No Bruising, No Other Objective Vitals Vital Signs Date Time Temp Pulse Resp B/P (MAP) Pulse Ox O2 Delivery O2 Flow Rate FiO2 01/03/24 13:30 98.8 60 22 104/55 (71) 100 209.8 01/03/24 12:00 Mechanical Ventilator+ 35 35 Intake/Output Intake and Output 01/03/24 07:00 Intake Total 1763.110 ml Output Total 1710 ml Balance 53.110 ml IV Total 1763.110 ml Output Urine Total 1610 ml Gastric Drainage Total 100 ml General Appearance: Other (sedated and intubated) HEENT: PERRLA Lungs: Clear to auscultation Cardiovascular: Regular rate, Normal S1, Normal S2 Abdomen: Soft, Other (noo bowel sounds) Extremities: Other (edema) Neuro: Other (sedated and ventilated/has cough and gag reflex) Medications Current Medications Medications Dose Ordered Sig/Saige Route Start Time Stop Time Status Last Admin Dose Admin Sodium Chloride 10 ml Q8HR IV 12/17/23 22:00 01/03/24 06:13 10 ML Midazolam HCl 50 ml @ 1 mls/hr Q24H IV 12/25/23 12:30 12/31/23 04:43 7 MLS/HR Fentanyl Citrate 250 ml @ 2.5 mls/hr Q24H IV 12/25/23 12:30 01/03/24 09:53 7.5 MLS/HR Nitroglycerin 0.4 mg Q5MINP PRN SL 12/25/23 16:00 Vasopressin 20 units/Sodium Chloride 100 ml @ 9 mls/hr Q11H7M IV 12/25/23 17:15 12/29/23 11:50 9 MLS/HR Phenylephrine HCl 250 ml @ 30 mls/hr Q8H20M IV 12/25/23 17:15 12/26/23 00:42 48.75 MLS/HR Epinephrine HCl 250 ml @ 7.5 mls/hr Q24H IV 12/25/23 18:30 Pantoprazole Sodium 40 mg DAILY IV 12/26/23 10:00 01/03/24 09:49 40 MG Ipratropium [place] 0.5 mg Q6HR NEB 12/27/23 18:00 Cancel Norepinephrine Bitartrate 32 mg/ Sodium Chloride 250 ml @ 0.938 mls/ hr Q24H IV 12/27/23 14:45 01/03/24 02:33 3.75 MLS/HR Amino Acids 0 ml @ 0 mls/hr PER PHARMACY IV 12/28/23 12:00 Diagnostic Test (Pha) 1 strip Q6HR 12/28/23 18:00 01/03/24 11:59 1 STRIP Insulin Human Regular FOLLOW SLIDING SCALE Q6HR SC 12/28/23 18:00 01/03/24 12:00 2 UNITS Dextrose 50 ml UD IV 12/28/23 13:00 Insulin Glargine 15 units DAILY@1000 SC 12/29/23 12:15 01/03/24 09:46 15 UNITS Enoxaparin Sodium 40 mg DAILY SC 12/29/23 12:15 01/03/24 09:47 40 MG Furosemide 40 mg BIDD IV 12/31/23 18:00 01/03/24 06:10 40 MG Vancomycin HCl 0 ml @ 0 mls/hr UD IV 01/01/24 12:15 Vancomycin HCl 200 ml @ 200 mls/hr Q14H IV 01/02/24 05:00 01/03/24 09:49 200 MLS/HR Dexmedetomidine HCl 400 mcg/ Dextrose 100 ml @ 4.065 mls/ hr Q24H IV 01/02/24 08:30 01/03/24 02:27 4.065 MLS/HR Fat Emulsion Intravenous 50 ml/ Potassium Phosphate 44 meq/ Calcium Gluconate 2.3 meq/Magnesium Sulfate 8 meq/ Multivitamins 10 ml/Amino Acids/ Dextrose 1,176.9462 ml @ 49 mls/hr Q24H2M IV 01/02/24 22:00 01/03/24 21:59 01/02/24 21:48 49 MLS/HR Fat Emulsion Intravenous 50 ml/ Potassium Acetate 20 meq/Potassium Phosphate 22 meq/ Calcium Gluconate 2.3 meq/ Multivitamins 10 ml/Amino Acids/ Dextrose 1,129.9462 ml @ 47 mls/hr Q24H3M IV 01/03/24 22:00 01/04/24 19:59 Meropenem 50 ml @ 17 mls/hr Q8HR IV 01/03/24 14:00 UNV Laboratory Results Laboratory Tests 01/03/24 03:56 01/03/24 05:00 Chemistry Test 01/03/24 03:56 Albumin 2.8 g/dL (3.2-4.8) L Calcium Level 8.2 mg/dL (8.7-10.4) L Magnesium Level 2.5 mg/dL (1.6-2.6) Phosphorus Level 4.1 mg/dL (2.4-5.1) Total Protein 5.7 g/dL (5.7-8.2) Cardiac Markers Test 01/03/24 05:00 B-Type Natriuretic Peptide 363.90 pg/mL (0-100) LFT Test 01/03/24 03:56 Alanine Aminotransferase (ALT) 90 U/L (7-40) H Alkaline Phosphatase 340 U/L (46-116) H Aspartate Amino Transferase (AST) 306 U/L (13-40) H Total Bilirubin 3.4 mg/dL (0.2-1.0) H Urinalysis Test 12/26/23 01:30 Urine Color Yellow (Yellow) Urine Clarity Turbid (Clear) H Urine pH 5.5 (5.0-9.0) Urine Specific [place] 1.025 (1.001-1.035) Urine Protein 1+ (Negative) H Urine Ketones Trace (Negative) Urine Blood 3+ /uL (Negative) H Urine Nitrite Negative (Negative) Urine Bilirubin Negative (Negative) Urine Urobilinogen Normal mg/dL (Negative) Urine Leukocyte Esterase Negative /uL (Negative) Urine RBC 87 /hpf (0 - 4) Urine WBC 6 /hpf (0 - 5) Urine Squamous Epithelial Cells None seen /hpf (<5) Urine Bacteria Few /hpf (None Seen) H Urine Hyaline Casts Mod /lpf (0 - 2) Urine Granular Casts Few /lpf (0) Urine Mucus Few (None Seen) Urine Yeast (Budding) Occasional /hpf (None Urine Creatinine 64.14 mg/dL (30.0-125.0) Urine Protein/Creatinine Ratio 1.97 Urine Sodium 35 mmol/L (40-220) L Urine Glucose Normal mg/dL (Normal) Urine Total Protein 126.3 mg/dL (1-14) H Blood Gas Results Test 01/03/24 06:59 Arterial Blood pH 7.461 (7.350-7.450) FiO2 % 35.0 Microbiology Microbiology Date/Time Source Procedure Growth Status 12/30/23 20:08 Sputum Expectorated Sputum Gram Stain - Final Complete 12/30/23 20:08 Respiratory Culture - Final Enterobacter cloacae Complete 12/30/23 15:35 Blood Blood Culture - Preliminary NO GROWTH AFTER 72 HOURS OF INCUBATION. Resulted 12/30/23 12:00 Voided Urine Urine Culture - Final Complete 12/25/23 16:11 Nose MRSA Screen - Final Complete 12/18/23 13:03 Stool Stool Culture - Final Complete 12/18/23 13:03 Stool Shiga Toxin I & II - Final Complete Labs and/or images reviewed: Labs reviewed by me, Image(s) reviewed by me Assessment/Plan Assessment/Plan sigmoid colon cancer with liver metastasis vent dependent- did not tolerate cpap trial /sepsis- on imipenam and vancomycin-/cxr normal/blood and urine cultures are negative/surgeon following cad-stable cardiomyopathy- stable tpn/npo status gi prophylaxis dvt prophylaxis Plan discussed with: Patient My Orders Orders - NIMA DOS SANTOS MD Procedure Category Date Status Time Meropenem 1gm Ivpb PHA 01/03/24 Logged (Merrem 1gm/ Ns) 14:00 Meropenem 1gm Ivpb PHA 01/03/24 Logged (Merrem 1gm/ Ns) 14:00 Complete Blood Count LAB 01/04/24 Verified 04:00 Date of Service: Jan 03, 2024 Billing Provider: NIMA DOS SANTOS MD Common Visit Codes: [id number] CARE-EACH +30MIN NIMA DOS SANTOS MD Jan 03, 2024 14:08
[2024-01-03] MEDS: MEROPENEM 1GM IVPB 50 ML IV ONE (14:20)
[2024-01-03] MEDS ORDERED: FUROSEMIDE 20 MG/2 ML VIAL IV ONE (15:15)
[2024-01-03] MEDS: fentaNYL Drip 2500mCg/250mlNS 250 ML IV SCH (17:15)
[2024-01-03] MEDS: ACETAMINOPHEN IV 1000 MG/100ML (10MG/ML) IV ONE (18:25)
[2024-01-03] MEDS: TPN PER PHARMACY IV NR (21:13)
[2024-01-03] MEDS: MEROPENEM 1GM IVPB 50 ML IV SCH (21:19)
--- NOTE | 2024-01-03 21:43 | DVHPN2 ---
Progress Note - Dictate Date Seen: Jan 03, 2024 Medical Necessity Reason Pt with a Central, PICC or Fol: Yes The following are medically ne: PICC Line, Davies Catheter Reason for davies catheter: Strict I&O Subjective Patient seen and examined at bedside. Sedated, intubated on mechanical ventilator. Overnight events reviewed. vital signs Vital Sign Date Time Temp Pulse Resp B/P (MAP) Pulse Ox O2 Delivery O2 Flow Rate FiO2 01/03/24 20:20 92 28 117/70 (86) 100 30 01/03/24 20:15 99.1 210.4 01/03/24 20:00 Mechanical Ventilator+ Total Intake and Output 01/02/24 01/02/24 01/03/24 15:00 23:00 07:00 Intake Total 651.563 ml 553.188 ml 558.359 ml Output Total 610 ml 1100 ml Balance 651.563 ml -56.812 ml -541.641 ml medications Current Medications Medications Dose Ordered Sig/Saige Route Start Time Stop Time Status Last Admin Dose Admin Sodium Chloride 10 ml Q8HR IV 12/17/23 22:00 01/03/24 21:19 10 ML Midazolam HCl 50 ml @ 1 mls/hr Q24H IV 12/25/23 12:30 12/31/23 04:43 7 MLS/HR Nitroglycerin 0.4 mg Q5MINP PRN SL 12/25/23 16:00 Vasopressin 20 units/Sodium Chloride 100 ml @ 9 mls/hr Q11H7M IV 12/25/23 17:15 12/29/23 11:50 9 MLS/HR Phenylephrine HCl 250 ml @ 30 mls/hr Q8H20M IV 12/25/23 17:15 12/26/23 00:42 48.75 MLS/HR Epinephrine HCl 250 ml @ 7.5 mls/hr Q24H IV 12/25/23 18:30 Pantoprazole Sodium 40 mg DAILY IV 12/26/23 10:00 01/03/24 09:49 40 MG Ipratropium [place] 0.5 mg Q6HR NEB 12/27/23 18:00 Cancel Norepinephrine Bitartrate 32 mg/ Sodium Chloride 250 ml @ 0.938 mls/ hr Q24H IV 12/27/23 14:45 01/03/24 02:33 3.75 MLS/HR Amino Acids 0 ml @ 0 mls/hr PER PHARMACY IV 12/28/23 12:00 Diagnostic Test (Pha) 1 strip Q6HR 12/28/23 18:00 01/03/24 17:35 1 STRIP Insulin Human Regular FOLLOW SLIDING SCALE Q6HR SC 12/28/23 18:00 01/03/24 17:34 2 UNITS Dextrose 50 ml UD IV 12/28/23 13:00 Insulin Glargine 15 units DAILY@1000 SC 12/29/23 12:15 01/03/24 09:46 15 UNITS Enoxaparin Sodium 40 mg DAILY SC 12/29/23 12:15 01/03/24 09:47 40 MG Furosemide 40 mg BIDD IV 12/31/23 18:00 01/03/24 17:31 40 MG Vancomycin HCl 0 ml @ 0 mls/hr UD IV 01/01/24 12:15 Vancomycin HCl 200 ml @ 200 mls/hr Q14H IV 01/02/24 05:00 01/03/24 09:49 200 MLS/HR Dexmedetomidine HCl 400 mcg/ Dextrose 100 ml @ 4.065 mls/ hr Q24H IV 01/02/24 08:30 01/03/24 02:27 4.065 MLS/HR Fat Emulsion Intravenous 50 ml/ Potassium Phosphate 44 meq/ Calcium Gluconate 2.3 meq/Magnesium Sulfate 8 meq/ Multivitamins 10 ml/Amino Acids/ Dextrose 1,176.9462 ml @ 49 mls/hr Q24H2M IV 01/02/24 22:00 01/03/24 21:59 01/02/24 21:48 49 MLS/HR Fat Emulsion Intravenous 50 ml/ Potassium Acetate 20 meq/Potassium Phosphate 22 meq/ Calcium Gluconate 2.3 meq/ Multivitamins 10 ml/Amino Acids/ Dextrose 1,129.9462 ml @ 47 mls/hr Q24H3M IV 01/03/24 22:00 01/04/24 19:59 01/03/24 21:13 47 MLS/HR Meropenem 50 ml @ 17 mls/hr Q8HR IV 01/03/24 22:00 01/03/24 21:19 17 MLS/HR Fentanyl Citrate 250 ml @ 2.5 mls/hr Q24H IV 01/03/24 17:15 objective Gen.: Patient lying in bed in medical ICU. Sedated, intubated on mechanical ventilator. Head: Normocephalic, atraumatic. Eyes: PERRLA. Ears: Normal external anatomy. Throat: Endotracheal tube and orogastric tube in place. Neck: Supple, trachea midline. Chest: Transmitted breath sounds bilaterally. Decreased air entry bilaterally. No wheezing. Bibasilar crackles. Cardiovascular: Positive S1, positive S2. Regular rate and rhythm. Abdomen: Positive bowel sounds in all 4 quadrants. Soft, nontender, nondistended. : Davies in place. Normal external genitalia. Rectal: Deferred. Skin: Warm, dry. Intact. Extremities: 2+ radial pulses bilaterally. No lower extremity edema. Neuro: Sedated. laboratory and microbiology Laboratory Tests 01/03/24 05:00 01/03/24 03:56 Test 01/03/24 03:56 Range/Units Serum Glucose 141 H 74-106 mg/dL Assessment/Plan Impression: Acute hypoxic respiratory failure On mechanical ventilator Sepsis due to liver abscess Possible MARCIANO in liver Chronic systolic heart failure CAD s/p PTCA with multiple stents and s/p defibrillator Distributive shock Metastatic colon cancer status post left colectomy Iron deficiency anemia Acute kidney injury due to shock Metabolic acidosis Lactic acidosis Events: Remains on vent support Currently on assist control with respiratory rate of 16, tidal volume 350, PEEP of 5, FiO2 of 30%. Taper FiO2 as tolerated Sedated on Fentanyl drip. On pressors for hemodynamic support. On Levophed at 6 micrograms/minute Titrate to keep MAP above 65 mmHg/SBP above 90 mmHg. Continue antibiotics Plan for bronchoscopy tomorrow due to increased ET tube secretions. Patient desaturated with turns. Potassium supplementation Monitor renal function Labs and imaging reviewed. Rest of plan as noted below. Plan: s/p intubation on mechanical ventilator CXR image and report reviewed. Devices in place. Hypoinflation. ABG reviewed. Acidemia due to metabolic acidosis Assist control mode with respiratory rate of 16, tidal volume 350, PEEP of 5, FiO2 of 30%. Titrate FIO2 to keep O2 saturation above 92%. VAP bundle Daily ABG and CXR while intubated. Sedate for ventilatory synchrony On pressors for hemodynamic support. Titrate to keep MAP above 65 mmHg/SBP above 90 mmHg. Continue antibiotics. F/u cultures. Blood cultures no growth after 5 days. Sputum culture notable for Enterobacter cloacae. Monitor renal function Monitor ins/outs Diurese with Lasix BID Monitor electrolytes. Supplement as necessary. Monitor lactic acid due to lactic acidosis. Nutritional support. Accucheks, ISS. GI/DVT prophylaxis. Condition: Critical Prognosis: Poor given multiple comorbidities. Rest of plan per hospitalist and other consultants. A total of 35 minutes of critical care time was spent reviewing the patient record, examining the patient, making a diagnostic and therapeutic plan, discussing this plan with the medical personnel, following up on diagnostic studies and following the patient for clinical stability excluding any and all procedures. At least 50% of this time was spent in direct, [id number] contact. Thank you Dr. Heath for allowing me to participate in this patient's care. Further recommendations will depend on patient's clinical course. Please do not hesitate to contact me if you have any questions or concerns. This medical document was created using an electronic medical record system with [employer] dictation system. Although this document has been carefully reviewed, there may still be some phonetic and typographical errors. These areas are purely typographical due to imperfections of the software programs, and do not reflect any compromise in the patient's medical care. Dietary Evaluation Review Comments: 1) Advance pt diet when medically feasible to a Cardiac diet 2) Continue current plan of care Expected Outcomes/Goals: 1) F/U in 3-5 days Plan discussed with: Other (WALKER Larkin) Critical Care Time(min): 35 DAYSI DYKES MD Jan 03, 2024 21:43
--- NOTE | 2024-01-03 21:48 | DVHPN2 ---
Progress Note - Dictate Date Seen: Jan 03, 2024 Medical Necessity Reason Pt with a Central, PICC or Fol: Yes The following are medically ne: PICC Line, Davies Catheter Reason for davies catheter: Strict I&O Subjective Patient postop day # 9 S/P left colon resection and removal of sigmoid/descending colon tumor Patient seen in ICU intubated sedated; FiO2 35% with a PEEP of five Patient was afebrile this morning but is running a low-grade fever since this afternoon; sputum culture showed some Gram-negative rods, Enterobacter cloaca Leukocytosis and lactic acidosis improving Patient has moderate elevation in liver enzymes trending downwards slowly; underlying liver metastases Sputum culture is growing Enterobacter cloaca vital signs Vital Sign Date Time Temp Pulse Resp B/P (MAP) Pulse Ox O2 Delivery O2 Flow Rate FiO2 01/03/24 20:20 92 28 117/70 (86) 100 30 01/03/24 20:15 99.1 210.4 01/03/24 20:00 Mechanical Ventilator+ Total Intake and Output 01/02/24 01/02/24 01/03/24 15:00 23:00 07:00 Intake Total 651.563 ml 553.188 ml 558.359 ml Output Total 610 ml 1100 ml Balance 651.563 ml -56.812 ml -541.641 ml medications Current Medications Medications Dose Ordered Sig/Saige Route Start Time Stop Time Status Last Admin Dose Admin Sodium Chloride 10 ml Q8HR IV 12/17/23 22:00 01/03/24 21:19 10 ML Midazolam HCl 50 ml @ 1 mls/hr Q24H IV 12/25/23 12:30 12/31/23 04:43 7 MLS/HR Nitroglycerin 0.4 mg Q5MINP PRN SL 12/25/23 16:00 Vasopressin 20 units/Sodium Chloride 100 ml @ 9 mls/hr Q11H7M IV 12/25/23 17:15 12/29/23 11:50 9 MLS/HR Phenylephrine HCl 250 ml @ 30 mls/hr Q8H20M IV 12/25/23 17:15 12/26/23 00:42 48.75 MLS/HR Epinephrine HCl 250 ml @ 7.5 mls/hr Q24H IV 12/25/23 18:30 Pantoprazole Sodium 40 mg DAILY IV 12/26/23 10:00 01/03/24 09:49 40 MG Ipratropium [place] 0.5 mg Q6HR NEB 12/27/23 18:00 Cancel Norepinephrine Bitartrate 32 mg/ Sodium Chloride 250 ml @ 0.938 mls/ hr Q24H IV 12/27/23 14:45 01/03/24 02:33 3.75 MLS/HR Amino Acids 0 ml @ 0 mls/hr PER PHARMACY IV 12/28/23 12:00 Diagnostic Test (Pha) 1 strip Q6HR 12/28/23 18:00 01/03/24 17:35 1 STRIP Insulin Human Regular FOLLOW SLIDING SCALE Q6HR SC 12/28/23 18:00 01/03/24 17:34 2 UNITS Dextrose 50 ml UD IV 12/28/23 13:00 Insulin Glargine 15 units DAILY@1000 SC 12/29/23 12:15 01/03/24 09:46 15 UNITS Enoxaparin Sodium 40 mg DAILY SC 12/29/23 12:15 01/03/24 09:47 40 MG Furosemide 40 mg BIDD IV 12/31/23 18:00 01/03/24 17:31 40 MG Vancomycin HCl 0 ml @ 0 mls/hr UD IV 01/01/24 12:15 Vancomycin HCl 200 ml @ 200 mls/hr Q14H IV 01/02/24 05:00 01/03/24 09:49 200 MLS/HR Dexmedetomidine HCl 400 mcg/ Dextrose 100 ml @ 4.065 mls/ hr Q24H IV 01/02/24 08:30 01/03/24 02:27 4.065 MLS/HR Fat Emulsion Intravenous 50 ml/ Potassium Phosphate 44 meq/ Calcium Gluconate 2.3 meq/Magnesium Sulfate 8 meq/ Multivitamins 10 ml/Amino Acids/ Dextrose 1,176.9462 ml @ 49 mls/hr Q24H2M IV 01/02/24 22:00 01/03/24 21:59 01/02/24 21:48 49 MLS/HR Fat Emulsion Intravenous 50 ml/ Potassium Acetate 20 meq/Potassium Phosphate 22 meq/ Calcium Gluconate 2.3 meq/ Multivitamins 10 ml/Amino Acids/ Dextrose 1,129.9462 ml @ 47 mls/hr Q24H3M IV 01/03/24 22:00 01/04/24 19:59 01/03/24 21:13 47 MLS/HR Meropenem 50 ml @ 17 mls/hr Q8HR IV 01/03/24 22:00 01/03/24 21:19 17 MLS/HR Fentanyl Citrate 250 ml @ 2.5 mls/hr Q24H IV 01/03/24 17:15 objective General: Well-built, afebrile, palor, mucosae are moist; intubated and sedated Cardiovascular: Regular S1 and S2. No murmurs, gallops or rubs. No JVD elevation. No pedal edema Respiratory: Normal B/L air entry on room air. Clear lung sounds on auscultation Abdomen: Soft, nontender, mildly tender, normoactive bowel sounds, no rebound tenderness, no organomegaly, no masses Genitourinary: Deferred MSK/skin: Mobilizes 4 limbs. Skin is dry and warm. No rash or bite dong seen in lower or upper extremities. Neurological: No motor, no sensitive deficits, normal speech. Pupils are isocoric and reactive. Psych/Mental Status: A/Ox4, mood is appropriate. laboratory and microbiology Laboratory Tests 01/03/24 05:00 01/03/24 03:56 Test 01/03/24 03:56 Range/Units Serum Glucose 141 H 74-106 mg/dL Problems(with codes): (1) Shock liver (2) Elevated liver enzymes (3) Lactic acidosis (4) Adenocarcinoma of sigmoid colon (5) Metastatic adenocarcinoma to liver (6) Abnormal finding on GI tract imaging (7) Heart failure with reduced ejection fraction (8) SIRS (systemic inflammatory response syndrome) Prognosis Assessment plan Patient continues to spike fevers despite having broaden antibiotic coverage to meropenem and vancomycin Request ID consult if the patient continues to spike fevers Overall the patient's prognosis is guarded and poor Continue supportive care for now Continue IV TPN Dietary Evaluation Review Comments: 1) Advance pt diet when medically feasible to a Cardiac diet 2) Continue current plan of care Expected Outcomes/Goals: 1) F/U in 3-5 days Plan discussed with: Other (ICU Nurse) ROD BUCKLEY MD Jan 03, 2024 21:48
[2024-01-04] VITALS (105 sets, daily range): BP systolic 76–143; BP diastolic 43–88; PULSE 71–125; RESP 14–34; TEMP 97–99.9; O2SAT 95–100
[2024-01-04 03:36] LABS: Hematocrit 29.6 % (36.0-46.0); Hemoglobin 9.9 g/dL (12.2-16.2); Mean Corpuscular Hemoglobin 25.7 pg (28.0-32.0); Mean Corpuscular Hgb Conc. 33.3 g/dL (32.0-36.0); Mean Corpuscular Volume 77.3 fL (80.0-100.0); Platelet Count (auto) 282 10^3/uL (140-450); Red Blood Cells 3.84 10^6/uL (4.0-5.20); White Blood Cell 14.9 10^3/uL (4.4-10.8)
[2024-01-04 03:42] LABS: Red Cell Distribution Width 25.2 % (11.8-14.3)
[2024-01-04 03:43] LABS: Basophils % (manual) 0 (0.0-2.0); Blast Cells 0; Metamyelocytes % 0; Myelocytes % 0; Promyelocytes % 0; Reactive Lymphocytes 0
[2024-01-04 03:48] LABS: Alanine Aminotransferase 78 U/L (7-40); Alkaline Phosphatase 316 U/L (46-116); Anion Gap 10 (5-15); BUN/Creatinine Ratio 72.9 (10.0-20.0); Blood Urea Nitrogen 35 mg/dL (9-23); Calcium 8.5 mg/dL (8.7-10.4); Carbon Dioxide 28 mmol/L (20-31); Chloride 108 mmol/L (98-107); Glucose 97 mg/dL (74-106); Magnesium 2.4 mg/dL (1.6-2.6); Potassium 3.2 mmol/L (3.5-5.1); Sodium 146 mmol/L (136-145)
[2024-01-04 03:49] LABS: Albumin 2.8 g/dL (3.2-4.8); Aspartate Aminotransferase 239 U/L (13-40); Bilirubin, Total 3.8 mg/dL (0.2-1.0); Phosphorus 4.1 mg/dL (2.4-5.1); Total Protein 5.9 g/dL (5.7-8.2)
[2024-01-04 04:03] LABS: Triglycerides 113 mg/dL (< 150)
[2024-01-04 04:50] LABS: Band Neutrophils % (manual) 4; Eosinophils % (manual) 1 (0-7); Lymphocytes % (manual) 11 (10.0-50.0); Monocytes % (manual) 3 (0-12)
[2024-01-04 04:51] LABS: Anisocytosis Slight; Platelet Estimate Adequate
--- NOTE | 2024-01-04 05:46 | DVH ---
CHEST RADIOGRAPH Indication:VENTILATED Technique: Single frontal view of the chest was obtained COMPARISON: XY CHEST XRAY 1 VIEW on DOS: 01/03/24, XY CHEST XRAY 1 VIEW on DOS: 01/02/24, XY CHEST XR AY 1 VIEW on DOS: 01/01/24 FINDINGS: Lines and Tubes: Endotracheal tube, enteric catheter, right central venous catheter and left chest wa ll pacemaker in satisfactory position. Lungs: Low lung volumes. Right basilar subsegmental atelectasis. Pleura: No effusion. No pneumothorax. Cardiomediastinal contours: Unremarkable Bones: Unremarkable IMPRESSION: Lines and tubes in satisfactory position. No significant interval change.
[2024-01-04] MEDS: POTASSIUM CHL 20MEQ/100ML 100 ML IV ONE (05:55)
--- NOTE | 2024-01-04 08:32 | DVHPN2 ---
Progress Note - Dictate Date Seen: Jan 04, 2024 Medical Necessity Reason Pt with a Central, PICC or Fol: Yes The following are medically ne: PICC Line, Davies Catheter Reason for davies catheter: Strict I&O Subjective Patient postop day # 10 S/P left colon resection and removal of sigmoid/descending colon tumor Patient seen in ICU intubated sedated; FiO2 35% with a PEEP of five Patient was afebrile this morning but is running a low-grade fever since this afternoon; sputum culture showed some Gram-negative rods, Enterobacter cloaca Leukocytosis and lactic acidosis improving Patient has moderate elevation in liver enzymes trending downwards slowly; underlying liver metastases Sputum culture is growing Enterobacter cloaca Patient was mildly tachypneic and tachycardic this morning and could not tolerate any CPAP trial Sedation has been resumed vital signs Vital Sign Date Time Temp Pulse Resp B/P (MAP) Pulse Ox O2 Delivery O2 Flow Rate FiO2 01/04/24 07:00 99.5 91 20 93/66 (75) 99 211.1 01/04/24 06:29 30 01/04/24 06:00 Mechanical Ventilator+ Total Intake and Output 01/03/24 01/03/24 01/04/24 15:00 23:00 07:00 Intake Total 476.451 ml 520.753 ml 743.314 ml Output Total 1425 ml 780 ml Balance 476.451 ml -904.247 ml -36.686 ml medications Current Medications Medications Dose Ordered Sig/Saige Route Start Time Stop Time Status Last Admin Dose Admin Sodium Chloride 10 ml Q8HR IV 12/17/23 22:00 01/04/24 06:24 10 ML Midazolam HCl 50 ml @ 1 mls/hr Q24H IV 12/25/23 12:30 12/31/23 04:43 7 MLS/HR Nitroglycerin 0.4 mg Q5MINP PRN SL 12/25/23 16:00 Vasopressin 20 units/Sodium Chloride 100 ml @ 9 mls/hr Q11H7M IV 12/25/23 17:15 12/29/23 11:50 9 MLS/HR Phenylephrine HCl 250 ml @ 30 mls/hr Q8H20M IV 12/25/23 17:15 12/26/23 00:42 48.75 MLS/HR Epinephrine HCl 250 ml @ 7.5 mls/hr Q24H IV 12/25/23 18:30 Pantoprazole Sodium 40 mg DAILY IV 12/26/23 10:00 01/03/24 09:49 40 MG Ipratropium [place] 0.5 mg Q6HR NEB 12/27/23 18:00 Cancel Norepinephrine Bitartrate 32 mg/ Sodium Chloride 250 ml @ 0.938 mls/ hr Q24H IV 12/27/23 14:45 01/03/24 02:33 3.75 MLS/HR Amino Acids 0 ml @ 0 mls/hr PER PHARMACY IV 12/28/23 12:00 Diagnostic Test (Pha) 1 strip Q6HR 12/28/23 18:00 01/04/24 06:24 1 STRIP Insulin Human Regular FOLLOW SLIDING SCALE Q6HR SC 12/28/23 18:00 01/03/24 17:34 2 UNITS Dextrose 50 ml UD IV 12/28/23 13:00 Insulin Glargine 15 units DAILY@1000 SC 12/29/23 12:15 01/03/24 09:46 15 UNITS Enoxaparin Sodium 40 mg DAILY SC 12/29/23 12:15 01/03/24 09:47 40 MG Furosemide 40 mg BIDD IV 12/31/23 18:00 01/04/24 05:55 40 MG Vancomycin HCl 0 ml @ 0 mls/hr UD IV 01/01/24 12:15 Vancomycin HCl 200 ml @ 200 mls/hr Q14H IV 01/02/24 05:00 01/03/24 22:11 200 MLS/HR Dexmedetomidine HCl 400 mcg/ Dextrose 100 ml @ 4.065 mls/ hr Q24H IV 01/02/24 08:30 01/03/24 02:27 4.065 MLS/HR Fat Emulsion Intravenous 50 ml/ Potassium Acetate 20 meq/Potassium Phosphate 22 meq/ Calcium Gluconate 2.3 meq/ Multivitamins 10 ml/Amino Acids/ Dextrose 1,129.9462 ml @ 47 mls/hr Q24H3M IV 01/03/24 22:00 01/04/24 19:59 01/03/24 21:13 47 MLS/HR Meropenem 50 ml @ 17 mls/hr Q8HR IV 01/03/24 22:00 01/04/24 06:03 17 MLS/HR Fentanyl Citrate 250 ml @ 2.5 mls/hr Q24H IV 01/03/24 17:15 01/04/24 06:18 17.5 MLS/HR objective General: Well-built, afebrile, palor, mucosae are moist; intubated and sedated Cardiovascular: Regular S1 and S2. No murmurs, gallops or rubs. No JVD elevation. No pedal edema Respiratory: Normal B/L air entry on room air. Clear lung sounds on auscultation Abdomen: Soft, nontender, mildly tender, normoactive bowel sounds, no rebound tenderness, no organomegaly, no masses Genitourinary: Deferred MSK/skin: Mobilizes 4 limbs. Skin is dry and warm. No rash or bite dong seen in lower or upper extremities. Neurological: No motor, no sensitive deficits, normal speech. Pupils are isocoric and reactive. Psych/Mental Status: A/Ox4, mood is appropriate. laboratory and microbiology Laboratory Tests 01/04/24 03:10 Test 01/04/24 03:10 Range/Units Serum Glucose 97 74-106 mg/dL Problems(with codes): (1) Enterobacter cloacae pneumonia (2) Pneumonia (3) Shock liver (4) Elevated liver enzymes (5) Lactic acidosis (6) Adenocarcinoma of sigmoid colon (7) Metastatic adenocarcinoma to liver (8) Sigmoid stricture (9) Abnormal finding on GI tract imaging (10) Metastases to the liver Prognosis Plan Patient is scheduled for a bronchoscopy today to help clear out her mucus secretions and plugs Continue IV antibiotics Continue IV TPN Prognosis remains guarded If the patient continues to spike we will request a ID consult and consider IV Micafungin Dietary Evaluation Review Comments: 1) Advance pt diet when medically feasible to a Cardiac diet 2) Continue current plan of care Expected Outcomes/Goals: 1) F/U in 3-5 days Plan discussed with: Other (ICU Nurse parveen) ROD BUCKLEY MD Jan 04, 2024 08:32
--- NOTE | 2024-01-04 10:03 | MEDREC ---
[facility] ASP Intervention Section I [facility] ASP Intervention: Deescalate AB based on CS (PLEASE REASSESS THE NEED FOR VANCOMYCIN SINCE THE RESP CULTURE IS GROWING ONLY ENTEROBACTER CLOACAE SUSCEPTIBLE TO MEROPENEM ) VIOLET LEONG PHARMACIST Jan 04, 2024 10:03
--- NOTE | 2024-01-04 11:15 | DVHPN2 ---
Subjective chart reviewed d/w at bedside Changes from previous H/P or p: No Changes Eyes: No Pain, No Vision change, No Conjunctivae inflammation, No Eyelid inflammation, No Other, No Redness ENT: No Ear pain, No Ear discharge, No Nose pain, No Nose discharge, No Nose congestion, No Mouth pain, No Mouth swelling, No Throat pain, No Throat swelling, No Other Cardiovascular: No Chest Pain, No Palpitations, No Orthopnea, No Paroxysmal Noc. Dyspnea, No Edema, No Lt Headedness, No Other Respiratory: Cough, Dry, Shortness of breath Gastrointestinal: Nausea; No Vomiting; Abdominal Pain; No Diarrhea, No Constipation, No Melena, No Hematochezia, No Other Genitourinary: Dysuria; No Frequency, No Incontinence, No Hematuria, No Retention, No Other Musculoskeletal: No other, No neck pain, No shoulder pain, No arm pain, No back pain, No hand pain, No leg pain, No foot pain Skin: No Rash, No Lesions, No Jaundice, No Bruising, No Other Objective Vitals Vital Signs Date Time Temp Pulse Resp B/P (MAP) Pulse Ox O2 Delivery O2 Flow Rate FiO2 01/04/24 10:21 91 23 102/65 (77) 100 30 01/04/24 10:15 99.5 211.1 01/04/24 08:00 Mechanical Ventilator+ Intake/Output Intake and Output 01/04/24 07:00 Intake Total 1740.518 ml Output Total 2205 ml Balance -464.482 ml Intake Oral 0 ml IV Total 1740.518 ml Output Urine Total 2175 ml Gastric Drainage Total 30 ml General Appearance: Other (sedated and intubated) HEENT: PERRLA Lungs: Clear to auscultation Cardiovascular: Regular rate, Normal S1, Normal S2 Abdomen: Soft, Other (noo bowel sounds) Extremities: Other (edema) Neuro: Other (sedated and ventilated/has cough and gag reflex) Medications Current Medications Medications Dose Ordered Sig/Saige Route Start Time Stop Time Status Last Admin Dose Admin Sodium Chloride 10 ml Q8HR IV 12/17/23 22:00 01/04/24 06:24 10 ML Midazolam HCl 50 ml @ 1 mls/hr Q24H IV 12/25/23 12:30 01/04/24 08:54 11 MLS/HR Nitroglycerin 0.4 mg Q5MINP PRN SL 12/25/23 16:00 Vasopressin 20 units/Sodium Chloride 100 ml @ 9 mls/hr Q11H7M IV 12/25/23 17:15 12/29/23 11:50 9 MLS/HR Phenylephrine HCl 250 ml @ 30 mls/hr Q8H20M IV 12/25/23 17:15 12/26/23 00:42 48.75 MLS/HR Epinephrine HCl 250 ml @ 7.5 mls/hr Q24H IV 12/25/23 18:30 Pantoprazole Sodium 40 mg DAILY IV 12/26/23 10:00 01/03/24 09:49 40 MG Ipratropium [place] 0.5 mg Q6HR NEB 12/27/23 18:00 Cancel Norepinephrine Bitartrate 32 mg/ Sodium Chloride 250 ml @ 0.938 mls/ hr Q24H IV 12/27/23 14:45 01/03/24 02:33 3.75 MLS/HR Amino Acids 0 ml @ 0 mls/hr PER PHARMACY IV 12/28/23 12:00 Diagnostic Test (Pha) 1 strip Q6HR 12/28/23 18:00 01/04/24 06:24 1 STRIP Insulin Human Regular FOLLOW SLIDING SCALE Q6HR SC 12/28/23 18:00 01/03/24 17:34 2 UNITS Dextrose 50 ml UD IV 12/28/23 13:00 Insulin Glargine 15 units DAILY@1000 SC 12/29/23 12:15 01/03/24 09:46 15 UNITS Enoxaparin Sodium 40 mg DAILY SC 12/29/23 12:15 01/03/24 09:47 40 MG Furosemide 40 mg BIDD IV 12/31/23 18:00 01/04/24 05:55 40 MG Vancomycin HCl 0 ml @ 0 mls/hr UD IV 01/01/24 12:15 Vancomycin HCl 200 ml @ 200 mls/hr Q14H IV 01/02/24 05:00 01/03/24 22:11 200 MLS/HR Dexmedetomidine HCl 400 mcg/ Dextrose 100 ml @ 4.065 mls/ hr Q24H IV 01/02/24 08:30 01/03/24 02:27 4.065 MLS/HR Fat Emulsion Intravenous 50 ml/ Potassium Acetate 20 meq/Potassium Phosphate 22 meq/ Calcium Gluconate 2.3 meq/ Multivitamins 10 ml/Amino Acids/ Dextrose 1,129.9462 ml @ 47 mls/hr Q24H3M IV 01/03/24 22:00 01/04/24 19:59 01/03/24 21:13 47 MLS/HR Meropenem 50 ml @ 17 mls/hr Q8HR IV 01/03/24 22:00 01/04/24 06:03 17 MLS/HR Fentanyl Citrate 250 ml @ 2.5 mls/hr Q24H IV 01/03/24 17:15 01/04/24 06:18 17.5 MLS/HR Laboratory Results Laboratory Tests 01/04/24 03:10 Chemistry Test 01/04/24 03:10 Albumin 2.8 g/dL (3.2-4.8) L Calcium Level 8.5 mg/dL (8.7-10.4) L Magnesium Level 2.4 mg/dL (1.6-2.6) Phosphorus Level 4.1 mg/dL (2.4-5.1) Total Protein 5.9 g/dL (5.7-8.2) Lipid panel Test 01/04/24 03:10 Triglycerides Level 113 mg/dL (< 150) LFT Test 01/04/24 03:10 Alanine Aminotransferase (ALT) 78 U/L (7-40) H Alkaline Phosphatase 316 U/L (46-116) H Aspartate Amino Transferase (AST) 239 U/L (13-40) H Total Bilirubin 3.8 mg/dL (0.2-1.0) H Urinalysis Test 12/26/23 01:30 Urine Color Yellow (Yellow) Urine Clarity Turbid (Clear) H Urine pH 5.5 (5.0-9.0) Urine Specific [place] 1.025 (1.001-1.035) Urine Protein 1+ (Negative) H Urine Ketones Trace (Negative) Urine Blood 3+ /uL (Negative) H Urine Nitrite Negative (Negative) Urine Bilirubin Negative (Negative) Urine Urobilinogen Normal mg/dL (Negative) Urine Leukocyte Esterase Negative /uL (Negative) Urine RBC 87 /hpf (0 - 4) Urine WBC 6 /hpf (0 - 5) Urine Squamous Epithelial Cells None seen /hpf (<5) Urine Bacteria Few /hpf (None Seen) H Urine Hyaline Casts Mod /lpf (0 - 2) Urine Granular Casts Few /lpf (0) Urine Mucus Few (None Seen) Urine Yeast (Budding) Occasional /hpf (None Urine Creatinine 64.14 mg/dL (30.0-125.0) Urine Protein/Creatinine Ratio 1.97 Urine Sodium 35 mmol/L (40-220) L Urine Glucose Normal mg/dL (Normal) Urine Total Protein 126.3 mg/dL (1-14) H Microbiology Microbiology Date/Time Source Procedure Growth Status 12/30/23 20:08 Sputum Expectorated Sputum Gram Stain - Final Complete 12/30/23 20:08 Respiratory Culture - Final Enterobacter cloacae Complete 12/30/23 15:35 Blood Blood Culture - Preliminary NO GROWTH AFTER 72 HOURS OF INCUBATION. Resulted 12/30/23 12:00 Voided Urine Urine Culture - Final Complete 12/25/23 16:11 Nose MRSA Screen - Final Complete 12/18/23 13:03 Stool Stool Culture - Final Complete 12/18/23 13:03 Stool Shiga Toxin I & II - Final Complete Labs and/or images reviewed: Labs reviewed by me, Image(s) reviewed by me Assessment/Plan Assessment/Plan sigmoid colon cancer with liver metastasis vent dependent- did not tolerate cpap trial still with enormous secretions and plan is to bronch today /sepsis- on imipenam and vancomycin-d/w pharmacy about indication for both given recent abdominal surgery//cxr normal/blood and urine cultures are negative/surgeon following cad-stable cardiomyopathy- stable tpn/npo status gi prophylaxis dvt prophylaxis Plan discussed with: Spouse My Orders Orders - NIMA DOS SANTOS MD Procedure Category Date Status Time Meropenem 1gm Ivpb PHA 01/03/24 In Process (Merrem 1gm/ Ns) 22:00 Fentanyl Drip PHA 01/03/24 In Process 2500mcg/250mlns 17:15 Date of Service: Jan 04, 2024 Billing Provider: NIMA DOS SANTOS MD Common Visit Codes: 88481-[id number] CARE 30-74 MIN NIMA DOS SANTOS MD Jan 04, 2024 11:15
[2024-01-04 11:42] LABS: Hemoglobin 9.9 g/dL (12.2-16.2); Red Blood Cells 3.96 10^6/uL (4.0-5.20)
[2024-01-04 11:44] LABS: Mean Corpuscular Hgb Conc. 31.9 g/dL (32.0-36.0); Mean Corpuscular Volume 78.3 fL (80.0-100.0); Platelet Count (auto) 311 10^3/uL (140-450); Red Cell Distribution Width 25.4 % (11.8-14.3)
[2024-01-04 11:46] LABS: Basophils % (manual) 0 (0.0-2.0); Blast Cells 0; Eosinophils % (manual) 0 (0-7); Myelocytes % 0; Promyelocytes % 0
[2024-01-04 12:00] LABS: Band Neutrophils % (manual) 6; Metamyelocytes % 1; Reactive Lymphocytes 1
[2024-01-04 12:01] LABS: Lymphocytes % (manual) 5 (10.0-50.0); Monocytes % (manual) 7 (0-12)
[2024-01-04 12:03] LABS: Anisocytosis Moderate; Hypochromia Slight; Platelet Estimate Adequate
--- NOTE | 2024-01-04 18:50 | DVHNC2 ---
Procedure - Bronchoscopy procedure note: Indications: Possible mucous plugging. 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 Complications: None Procedure: Patient medications and allergies reviewed. The risks and benefits of the procedure and the sedation options and risk were discussed with the patient's healthcare proxy. All questions were answered and informed consent was obtained. Patient identification and proposed procedure were verified prior to the procedure by the physician, and a nurse, and the respiratory therapist in ICU room. The heart rate, respiratory rate, oxygen saturations, blood pressure, adequacy of pulmonary ventilation, and response to care were monitored throughout the procedure. The physical status of the patient was reassessed after the procedure. After obtaining informed consent, the bronchoscope was introduced through the endotracheal tube and advanced into the trachea bronchial tree of both lungs. The procedure was accomplished without difficulty. The patient tolerated the procedure well. Findings: The trachea is in normal caliber. The nany is sharp. There was copious secretions at distal end of ET tube being suctioned via side port. The tracheobronchial tree of the right lung was examined to at least the first subsegmental level. The bronchial mucosa and anatomy in the right lung are normal. There are no endobronchial lesions. There was scant secretions in R1- R10. Right middle lobe (RML) Bronchoalveolar lavage (BAL) obtained. RML BAL sent for gram stain and culture, fungal and viral culture. The left upper lobe, lingula, and left lower lobe were examined to at least the first subsegmental level. Bronchial mucosa and anatomy in the left upper lobe and lingula are normal. There were no endobronchial lesions. There was scant secretions in L1-L10. There was no active bleeding at the completion of the procedure. Estimated blood loss: Less than 5 mL. Impression: RML BAL performed Upper airway secretions pooled in the posterior pharynx Recommendation: Follow-up RML BAL results. Procedure codes: 26776, bronchoscopy, rigid and flexible, including fluoroscopic guidance, one performed; with bronchial endobronchial broncho-alveolar lavage, single or multiple sites DAYSI DYKES MD Jan 04, 2024 18:50
--- NOTE | 2024-01-04 19:26 | DVH ---
CHEST RADIOGRAPH Indication:s/p bronchoscopy Technique: Single frontal view of the chest was obtained Comparison: XY CHEST PORTABLE on DOS: 01/04/24, XY CHEST XRAY 1 VIEW on DOS: 01/03/24, XY CHEST XRAY 1 VIEW on DOS: 01/02/24 FINDINGS: Lines and Tubes: Endotracheal tube 4.1 cm above the nany. Enteric tube below the diaphragm in stoma ch. Dual-chamber pacemaker in place with pulse generator over the left chest. Lungs: No focal consolidation. Pleura: No effusion. No pneumothorax. Cardiomediastinal contours: Unremarkable Bones: No acute osseous abnormality. IMPRESSION: 1. Endotracheal tube 4.1 cm above the nany. 2. Enteric tube in the stomach. 3. No change in the position of the pacemaker. 4. No pneumothorax.
--- NOTE | 2024-01-04 20:00 | DVHPN2 ---
Progress Note Date Seen: Jan 04, 2024 Medical Necessity Reason Pt with a Central, PICC or Fol: Yes The following are medically ne: PICC Line, Davies Catheter Reason for davies catheter: Strict I&O Objective vital signs Vital Sign Date Time Temp Pulse Resp B/P (MAP) Pulse Ox O2 Delivery O2 Flow Rate FiO2 01/04/24 18:45 99.3 83 19 98/58 (71) 100 210.7 01/04/24 18:10 30 01/04/24 18:00 Mechanical Ventilator+ Total Intake and Output 01/03/24 01/03/24 01/04/24 15:00 23:00 07:00 Intake Total 476.451 ml 520.753 ml 743.314 ml Output Total 1425 ml 780 ml Balance 476.451 ml -904.247 ml -36.686 ml medications Current Medications Medications Dose Ordered Sig/Saige Route Start Time Stop Time Status Last Admin Dose Admin Sodium Chloride 10 ml Q8HR IV 12/17/23 22:00 01/04/24 14:56 10 ML Midazolam HCl 50 ml @ 1 mls/hr Q24H IV 12/25/23 12:30 01/04/24 18:16 2 MLS/HR Nitroglycerin 0.4 mg Q5MINP PRN SL 12/25/23 16:00 Vasopressin 20 units/Sodium Chloride 100 ml @ 9 mls/hr Q11H7M IV 12/25/23 17:15 12/29/23 11:50 9 MLS/HR Phenylephrine HCl 250 ml @ 30 mls/hr Q8H20M IV 12/25/23 17:15 12/26/23 00:42 48.75 MLS/HR Epinephrine HCl 250 ml @ 7.5 mls/hr Q24H IV 12/25/23 18:30 Pantoprazole Sodium 40 mg DAILY IV 12/26/23 10:00 01/04/24 11:29 40 MG Ipratropium [place] 0.5 mg Q6HR NEB 12/27/23 18:00 Cancel Norepinephrine Bitartrate 32 mg/ Sodium Chloride 250 ml @ 0.938 mls/ hr Q24H IV 12/27/23 14:45 01/04/24 15:01 4.688 MLS/HR Amino Acids 0 ml @ 0 mls/hr PER PHARMACY IV 12/28/23 12:00 Diagnostic Test (Pha) 1 strip Q6HR 12/28/23 18:00 01/04/24 17:28 1 STRIP Insulin Human Regular FOLLOW SLIDING SCALE Q6HR SC 12/28/23 18:00 01/04/24 17:28 2 UNITS Dextrose 50 ml UD IV 12/28/23 13:00 Insulin Glargine 15 units DAILY@1000 SC 12/29/23 12:15 01/04/24 12:04 15 UNITS Enoxaparin Sodium 40 mg DAILY SC 12/29/23 12:15 01/04/24 11:30 40 MG Furosemide 40 mg BIDD IV 12/31/23 18:00 01/04/24 17:30 40 MG Vancomycin HCl 0 ml @ 0 mls/hr UD IV 01/01/24 12:15 Vancomycin HCl 200 ml @ 200 mls/hr Q14H IV 01/02/24 05:00 01/04/24 13:59 200 MLS/HR Dexmedetomidine HCl 400 mcg/ Dextrose 100 ml @ 4.065 mls/ hr Q24H IV 01/02/24 08:30 01/03/24 02:27 4.065 MLS/HR Fat Emulsion Intravenous 50 ml/ Potassium Acetate 20 meq/Potassium Phosphate 22 meq/ Calcium Gluconate 2.3 meq/ Multivitamins 10 ml/Amino Acids/ Dextrose 1,129.9462 ml @ 47 mls/hr Q24H3M IV 01/03/24 22:00 01/04/24 19:59 01/03/24 21:13 47 MLS/HR Meropenem 50 ml @ 17 mls/hr Q8HR IV 01/03/24 22:00 01/04/24 13:59 17 MLS/HR Fentanyl Citrate 250 ml @ 2.5 mls/hr Q24H IV 01/03/24 17:15 01/04/24 15:05 25 MLS/HR Fat Emulsion Intravenous 50 ml/ Potassium Acetate 20 meq/Potassium Phosphate 44 meq/ Magnesium Sulfate 4 meq/ Multivitamins 10 ml/Amino Acids/ Dextrose 1,081 ml @ 45 mls/hr Q24H2M IV 01/04/24 22:00 01/05/24 19:59 laboratory and microbiology Laboratory Tests 01/04/24 11:30 01/04/24 03:10 Test 01/04/24 03:10 Range/Units Serum Glucose 97 74-106 mg/dL Microbiology Date/Time Source Procedure Growth Status 12/30/23 20:08 Sputum Expectorated Sputum Gram Stain - Final Complete 12/30/23 20:08 Respiratory Culture - Final Enterobacter cloacae Complete 12/30/23 15:35 Blood Blood Culture - Final NO GROWTH AFTER 5 DAYS OF INCUBATION. Complete 12/30/23 12:00 Voided Urine Urine Culture - Final Complete 12/25/23 16:11 Nose MRSA Screen - Final Complete 12/18/23 13:03 Stool Stool Culture - Final Complete 12/18/23 13:03 Stool Shiga Toxin I & II - Final Complete Problem List/Assessment/Plan Problem List/Assessment/Plan INTUBATED HEMODYNAMICALLY BETTER BUT LABILE BACK ON MINIMAL VASOPRESSOR SUPPORT H/H STABLE ABD SOFT LESS DISTENDED NO BM FLATUS + WBC DOWN CONTINUE CLOSE OBSERVATION SUPPORTIVE CARE CONSIDER REPEAT CT SCAN ABD AND PELVIS TO DETERMINE THE NEED FOR EMERGENT SURGERY INDICATED BASED ON ONGOING EVAL HOLD STEROIDS ALLERGY REACTION TO PREVIOUS ISLAND DRESSING RESOLVING NURSE AT BEDSIDE PULM EVAL FOR BRONCHOSCOPY Plan discussed with: Other My Orders My Orders Orders - NEGIN BUCKLEY MD Procedure Category Date Status Time Amino Acid PHA 01/04/24 In Process Infusion... W/Fat 22:00 Comprehensive LAB 01/05/24 Verified Metabolic Panel 04:00 Magnesium LAB 01/05/24 Verified 04:00 Phosphorus LAB 01/05/24 Verified 04:00 Tpn Per Pharmacy [facility] 01/04/24 In Process 22:00 Dietary Evaluation Review Comments: 1) Advance pt diet when medically feasible to a Cardiac diet 2) Continue current plan of care Expected Outcomes/Goals: 1) F/U in 3-5 days NEGIN BUCKLEY MD Jan 04, 2024 20:00
--- NOTE | 2024-01-04 21:23 | DVHPN2 ---
Progress Note - Dictate Date Seen: Jan 04, 2024 Medical Necessity Reason Pt with a Central, PICC or Fol: Yes The following are medically ne: PICC Line, Davies Catheter Reason for davies catheter: Strict I&O Subjective Patient seen and examined at bedside. Sedated, intubated on mechanical ventilator. Overnight events reviewed. vital signs Vital Sign Date Time Temp Pulse Resp B/P (MAP) Pulse Ox O2 Delivery O2 Flow Rate FiO2 01/04/24 21:00 99.1 84 18 89/46 (60) 100 210.4 01/04/24 20:30 30 01/04/24 20:00 Mechanical Ventilator+ Total Intake and Output 01/03/24 01/03/24 01/04/24 15:00 23:00 07:00 Intake Total 476.451 ml 520.753 ml 743.314 ml Output Total 1425 ml 780 ml Balance 476.451 ml -904.247 ml -36.686 ml medications Current Medications Medications Dose Ordered Sig/Saige Route Start Time Stop Time Status Last Admin Dose Admin Sodium Chloride 10 ml Q8HR IV 12/17/23 22:00 01/04/24 14:56 10 ML Midazolam HCl 50 ml @ 1 mls/hr Q24H IV 12/25/23 12:30 01/04/24 18:16 2 MLS/HR Nitroglycerin 0.4 mg Q5MINP PRN SL 12/25/23 16:00 Vasopressin 20 units/Sodium Chloride 100 ml @ 9 mls/hr Q11H7M IV 12/25/23 17:15 12/29/23 11:50 9 MLS/HR Phenylephrine HCl 250 ml @ 30 mls/hr Q8H20M IV 12/25/23 17:15 12/26/23 00:42 48.75 MLS/HR Epinephrine HCl 250 ml @ 7.5 mls/hr Q24H IV 12/25/23 18:30 Pantoprazole Sodium 40 mg DAILY IV 12/26/23 10:00 01/04/24 11:29 40 MG Ipratropium [place] 0.5 mg Q6HR NEB 12/27/23 18:00 Cancel Norepinephrine Bitartrate 32 mg/ Sodium Chloride 250 ml @ 0.938 mls/ hr Q24H IV 12/27/23 14:45 01/04/24 15:01 4.688 MLS/HR Amino Acids 0 ml @ 0 mls/hr PER PHARMACY IV 12/28/23 12:00 Diagnostic Test (Pha) 1 strip Q6HR 12/28/23 18:00 01/04/24 17:28 1 STRIP Insulin Human Regular FOLLOW SLIDING SCALE Q6HR SC 12/28/23 18:00 01/04/24 17:28 2 UNITS Dextrose 50 ml UD IV 12/28/23 13:00 Insulin Glargine 15 units DAILY@1000 SC 12/29/23 12:15 01/04/24 12:04 15 UNITS Enoxaparin Sodium 40 mg DAILY SC 12/29/23 12:15 01/04/24 11:30 40 MG Furosemide 40 mg BIDD IV 12/31/23 18:00 01/04/24 17:30 40 MG Vancomycin HCl 0 ml @ 0 mls/hr UD IV 01/01/24 12:15 Vancomycin HCl 200 ml @ 200 mls/hr Q14H IV 01/02/24 05:00 01/04/24 13:59 200 MLS/HR Dexmedetomidine HCl 400 mcg/ Dextrose 100 ml @ 4.065 mls/ hr Q24H IV 01/02/24 08:30 01/03/24 02:27 4.065 MLS/HR Meropenem 50 ml @ 17 mls/hr Q8HR IV 01/03/24 22:00 01/04/24 13:59 17 MLS/HR Fentanyl Citrate 250 ml @ 2.5 mls/hr Q24H IV 01/03/24 17:15 01/04/24 15:05 25 MLS/HR Fat Emulsion Intravenous 50 ml/ Potassium Acetate 20 meq/Potassium Phosphate 44 meq/ Magnesium Sulfate 4 meq/ Multivitamins 10 ml/Amino Acids/ Dextrose 1,081 ml @ 45 mls/hr Q24H2M IV 01/04/24 22:00 01/05/24 19:59 objective Gen.: Patient lying in bed in medical ICU. Sedated, intubated on mechanical ventilator. Head: Normocephalic, atraumatic. Eyes: PERRLA. Ears: Normal external anatomy. Throat: Endotracheal tube and orogastric tube in place. Neck: Supple, trachea midline. Chest: Transmitted breath sounds bilaterally. Decreased air entry bilaterally. No wheezing. Bibasilar crackles. Cardiovascular: Positive S1, positive S2. Regular rate and rhythm. Abdomen: Positive bowel sounds in all 4 quadrants. Soft, nontender, nondistended. : Davies in place. Normal external genitalia. Rectal: Deferred. Skin: Warm, dry. Intact. Extremities: 2+ radial pulses bilaterally. No lower extremity edema. Neuro: Sedated. laboratory and microbiology Laboratory Tests 01/04/24 11:30 01/04/24 03:10 Test 01/04/24 03:10 Range/Units Serum Glucose 97 74-106 mg/dL Assessment/Plan Impression: Acute hypoxic respiratory failure On mechanical ventilator Sepsis due to liver abscess Possible MARCIANO in liver Chronic systolic heart failure CAD s/p PTCA with multiple stents and s/p defibrillator Distributive shock Metastatic colon cancer status post left colectomy Iron deficiency anemia Acute kidney injury due to shock Metabolic acidosis Lactic acidosis Events: Remains on vent support Currently on assist control with respiratory rate of 16, tidal volume 350, PEEP of 5, FiO2 of 100%. Taper FiO2 as tolerated Posterior pharynx pooling of secretions - s/p bronchoscopy with RML BAL Please see procedure note for details. Sedated on Fentanyl drip. On pressors for hemodynamic support. On Levophed at 14 micrograms/minute Titrate to keep MAP above 65 mmHg/SBP above 90 mmHg. Continue antibiotics Potassium supplementation Monitor renal function TPN for nutritional support Labs and imaging reviewed. Rest of plan as noted below. Plan: s/p intubation on mechanical ventilator CXR image and report reviewed. Devices in place. Hypoinflation. ABG reviewed. Acidemia due to metabolic acidosis Assist control mode with respiratory rate of 16, tidal volume 350, PEEP of 5, FiO2 of 100%. Titrate FIO2 to keep O2 saturation above 92%. VAP bundle Daily ABG and CXR while intubated. Sedate for ventilatory synchrony On pressors for hemodynamic support. Titrate to keep MAP above 65 mmHg/SBP above 90 mmHg. Continue antibiotics. F/u cultures. Blood cultures no growth after 5 days. Sputum culture notable for Enterobacter cloacae. Monitor renal function Monitor ins/outs Diurese with Lasix BID Monitor electrolytes. Supplement as necessary. Monitor lactic acid due to lactic acidosis. Nutritional support. Accucheks, ISS. GI/DVT prophylaxis. Condition: Critical Prognosis: Poor given multiple comorbidities. Rest of plan per hospitalist and other consultants. A total of 35 minutes of critical care time was spent reviewing the patient record, examining the patient, making a diagnostic and therapeutic plan, discussing this plan with the medical personnel, following up on diagnostic studies and following the patient for clinical stability excluding any and all procedures. At least 50% of this time was spent in direct, [id number] contact. Thank you Dr. Heath for allowing me to participate in this patient's care. Further recommendations will depend on patient's clinical course. Please do not hesitate to contact me if you have any questions or concerns. This medical document was created using an electronic medical record system with [employer] dictation system. Although this document has been carefully reviewed, there may still be some phonetic and typographical errors. These areas are purely typographical due to imperfections of the software programs, and do not reflect any compromise in the patient's medical care. Dietary Evaluation Review Comments: 1) Advance pt diet when medically feasible to a Cardiac diet 2) Continue current plan of care Expected Outcomes/Goals: 1) F/U in 3-5 days Plan discussed with: Other (WALKER Tavera) Critical Care Time(min): 35 DAYSI DYKES MD Jan 04, 2024 21:23
[2024-01-04] MEDS: TPN PER PHARMACY IV NR (21:48)
[2024-01-05] VITALS (106 sets, daily range): BP systolic 67–159; BP diastolic 23–90; PULSE 64–113; RESP 13–29; TEMP 98.8–100.2; O2SAT 94–100
--- NOTE | 2024-01-05 04:00 | DVH ---
CHEST RADIOGRAPH Indication:ett placement Technique: Single frontal view of the chest was obtained Comparison: XY CHEST PORTABLE on DOS: 01/04/24, XY CHEST PORTABLE on DOS: 01/04/24, XY CHEST XRAY 1 V IEW on DOS: 01/03/24, XY CHEST XRAY 1 VIEW on DOS: 01/02/24, XY CHEST XRAY 1 VIEW on DOS: 01/01/24, X Y CHEST PORTABLE on DOS: 01/04/24 FINDINGS: Lines and Tubes: Endotracheal tube 3.5 cm above the nany. Enteric tube below the diaphragm in sto mach. Dual-chamber pacemaker in place with pulse generator over the left chest. Lungs: No focal consolidation. Pleura: No effusion. No pneumothorax. Cardiomediastinal contours: Unremarkable Bones: No acute osseous abnormality. IMPRESSION: 1. Endotracheal tube 3.5 cm above the nany. 2. Enteric tube in the stomach. 3. No change in the position of the pacemaker. 4. No pneumothorax.
[2024-01-05 04:40] LABS: Alanine Aminotransferase 72 U/L (7-40); Albumin 2.9 g/dL (3.2-4.8); Alkaline Phosphatase 304 U/L (46-116); Anion Gap 11 (5-15); Aspartate Aminotransferase 185 U/L (13-40); BUN/Creatinine Ratio 62.5 (10.0-20.0); Calcium 8.8 mg/dL (8.7-10.4); Carbon Dioxide 26 mmol/L (20-31); Chloride 107 mmol/L (98-107); Glucose 125 mg/dL (74-106); Magnesium 2.4 mg/dL (1.6-2.6); Potassium 4.3 mmol/L (3.5-5.1); Sodium 144 mmol/L (136-145)
[2024-01-05 04:41] LABS: Bilirubin, Total 3.5 mg/dL (0.2-1.0); Phosphorus 6.7 mg/dL (2.4-5.1); Total Protein 6.3 g/dL (5.7-8.2)
[2024-01-05 04:44] LABS: Blood Urea Nitrogen 50 mg/dL (9-23)
[2024-01-05 07:36] LABS: Base Excess -2.5 mmol/L (-2.0-3.0)
--- NOTE | 2024-01-05 11:11 | DVHPN2 ---
Subjective The patient seen and examined at bedside. No change overnight. The patient remained intubated. Reviewed: Care Plan, H&P, Labs, Medications, Previous Orders, Radiology Changes from previous H/P or p: No Changes Eyes: No Pain, No Vision change, No Conjunctivae inflammation, No Eyelid inflammation, No Other, No Redness ENT: No Ear pain, No Ear discharge, No Nose pain, No Nose discharge, No Nose congestion, No Mouth pain, No Mouth swelling, No Throat pain, No Throat swelling, No Other Cardiovascular: No Chest Pain, No Palpitations, No Orthopnea, No Paroxysmal Noc. Dyspnea, No Edema, No Lt Headedness, No Other Respiratory: Cough, Dry, Shortness of breath Gastrointestinal: Nausea; No Vomiting; Abdominal Pain; No Diarrhea, No Constipation, No Melena, No Hematochezia, No Other Genitourinary: Dysuria; No Frequency, No Incontinence, No Hematuria, No Retention, No Other Musculoskeletal: No other, No neck pain, No shoulder pain, No arm pain, No back pain, No hand pain, No leg pain, No foot pain Skin: No Rash, No Lesions, No Jaundice, No Bruising, No Other Objective Vitals Vital Signs Date Time Temp Pulse Resp B/P (MAP) Pulse Ox O2 Delivery O2 Flow Rate FiO2 01/05/24 11:07 84 21 90/52 (65) 100 35 01/05/24 10:00 Mechanical Ventilator+ 01/05/24 09:45 99.7 211.5 Intake/Output Intake and Output 01/05/24 07:00 Intake Total 2313.258 ml Output Total 1200 ml Balance 1113.258 ml Intake Oral 0 ml IV Total 2313.258 ml Output Urine Total 1100 ml Gastric Drainage Total 100 ml General Appearance: Other (sedated and intubated) HEENT: PERRLA Lungs: Clear to auscultation Cardiovascular: Regular rate, Normal S1, Normal S2 Abdomen: Soft, Other (noo bowel sounds) Extremities: Other (edema) Neuro: Other (sedated and ventilated/has cough and gag reflex) Medications Current Medications Medications Dose Ordered Sig/Saige Route Start Time Stop Time Status Last Admin Dose Admin Sodium Chloride 10 ml Q8HR IV 12/17/23 22:00 01/05/24 05:26 10 ML Midazolam HCl 50 ml @ 1 mls/hr Q24H IV 12/25/23 12:30 01/04/24 18:16 2 MLS/HR Nitroglycerin 0.4 mg Q5MINP PRN SL 12/25/23 16:00 Vasopressin 20 units/Sodium Chloride 100 ml @ 9 mls/hr Q11H7M IV 12/25/23 17:15 12/29/23 11:50 9 MLS/HR Phenylephrine HCl 250 ml @ 30 mls/hr Q8H20M IV 12/25/23 17:15 12/26/23 00:42 48.75 MLS/HR Epinephrine HCl 250 ml @ 7.5 mls/hr Q24H IV 12/25/23 18:30 Pantoprazole Sodium 40 mg DAILY IV 12/26/23 10:00 01/05/24 10:02 40 MG Ipratropium [place] 0.5 mg Q6HR NEB 12/27/23 18:00 Cancel Norepinephrine Bitartrate 32 mg/ Sodium Chloride 250 ml @ 0.938 mls/ hr Q24H IV 12/27/23 14:45 01/04/24 15:01 4.688 MLS/HR Amino Acids 0 ml @ 0 mls/hr PER PHARMACY IV 12/28/23 12:00 Diagnostic Test (Pha) 1 strip Q6HR 12/28/23 18:00 01/05/24 05:27 1 STRIP Insulin Human Regular FOLLOW SLIDING SCALE Q6HR AL 12/28/23 18:00 01/04/24 17:28 2 UNITS Dextrose 50 ml UD IV 12/28/23 13:00 Insulin Glargine 15 units DAILY@1000 SC 12/29/23 12:15 01/05/24 10:05 15 UNITS Enoxaparin Sodium 40 mg DAILY SC 12/29/23 12:15 01/05/24 10:04 40 MG Furosemide 40 mg BIDD IV 12/31/23 18:00 01/05/24 05:30 40 MG Vancomycin HCl 0 ml @ 0 mls/hr UD IV 01/01/24 12:15 Vancomycin HCl 200 ml @ 200 mls/hr Q14H IV 01/02/24 05:00 01/05/24 02:30 200 MLS/HR Dexmedetomidine HCl 400 mcg/ Dextrose 100 ml @ 4.065 mls/ hr Q24H IV 01/02/24 08:30 01/03/24 02:27 4.065 MLS/HR Meropenem 50 ml @ 17 mls/hr Q8HR IV 01/03/24 22:00 01/05/24 05:30 17 MLS/HR Fentanyl Citrate 250 ml @ 2.5 mls/hr Q24H IV 01/03/24 17:15 01/05/24 02:31 15 MLS/HR Fat Emulsion Intravenous 50 ml/ Potassium Acetate 20 meq/Potassium Phosphate 44 meq/ Magnesium Sulfate 4 meq/ Multivitamins 10 ml/Amino Acids/ Dextrose 1,081 ml @ 45 mls/hr Q24H2M IV 01/04/24 22:00 01/05/24 19:59 01/04/24 21:48 45 MLS/HR Fat Emulsion Intravenous 50 ml/ Potassium Acetate 30 meq/ Multivitamins 10 ml/Amino Acids/ Dextrose 1,025 ml @ 42 mls/hr [id number] IV 01/05/24 22:00 01/06/24 21:59 Laboratory Results Laboratory Tests 01/04/24 11:30 01/05/24 03:14 Chemistry Test 01/05/24 03:14 Albumin 2.9 g/dL (3.2-4.8) L Calcium Level 8.8 mg/dL (8.7-10.4) Magnesium Level 2.4 mg/dL (1.6-2.6) Phosphorus Level 6.7 mg/dL (2.4-5.1) H Total Protein 6.3 g/dL (5.7-8.2) LFT Test 01/05/24 03:14 Alanine Aminotransferase (ALT) 72 U/L (7-40) H Alkaline Phosphatase 304 U/L (46-116) H Aspartate Amino Transferase (AST) 185 U/L (13-40) H Total Bilirubin 3.5 mg/dL (0.2-1.0) H Urinalysis Test 12/26/23 01:30 Urine Color Yellow (Yellow) Urine Clarity Turbid (Clear) H Urine pH 5.5 (5.0-9.0) Urine Specific [place] 1.025 (1.001-1.035) Urine Protein 1+ (Negative) H Urine Ketones Trace (Negative) Urine Blood 3+ /uL (Negative) H Urine Nitrite Negative (Negative) Urine Bilirubin Negative (Negative) Urine Urobilinogen Normal mg/dL (Negative) Urine Leukocyte Esterase Negative /uL (Negative) Urine RBC 87 /hpf (0 - 4) Urine WBC 6 /hpf (0 - 5) Urine Squamous Epithelial Cells None seen /hpf (<5) Urine Bacteria Few /hpf (None Seen) H Urine Hyaline Casts Mod /lpf (0 - 2) Urine Granular Casts Few /lpf (0) Urine Mucus Few (None Seen) Urine Yeast (Budding) Occasional /hpf (None Urine Creatinine 64.14 mg/dL (30.0-125.0) Urine Protein/Creatinine Ratio 1.97 Urine Sodium 35 mmol/L (40-220) L Urine Glucose Normal mg/dL (Normal) Urine Total Protein 126.3 mg/dL (1-14) H Blood Gas Results Test 01/05/24 07:29 Arterial Blood pH 7.369 (7.350-7.450) FiO2 % 35.0 Microbiology Microbiology Date/Time Source Procedure Growth Status 12/30/23 20:08 Sputum Expectorated Sputum Gram Stain - Final Complete 12/30/23 20:08 Respiratory Culture - Final Enterobacter cloacae Complete 12/30/23 15:35 Blood Blood Culture - Final NO GROWTH AFTER 5 DAYS OF INCUBATION. Complete 12/30/23 12:00 Voided Urine Urine Culture - Final Complete 12/25/23 16:11 Nose MRSA Screen - Final Complete 12/18/23 13:03 Stool Stool Culture - Final Complete 12/18/23 13:03 Stool Shiga Toxin I & II - Final Complete Labs and/or images reviewed: Labs reviewed by me Assessment/Plan Assessment/Plan Acute hypoxic respiratory failure, on mechanical ventilator did not tolerate cpap trial still with enormous secretions status post bronchoscopy. Sepsis due to liver abscess Chronic systolic heart failure CAD s/p PTCA with multiple stents and s/p defibrillator Distributive shock Metastatic colon cancer to liver status post left colectomy Iron deficiency anemia Acute kidney injury due to shock Metabolic acidosis Lactic acidosis Continuing current management with ventilation support. Continuing with imipenem and vancomycin IV Blood culture and urine culture remained negative Continuing TPN. Continuing with vasopressor. Prognosis guarded Plan discussed with: Other (RN) Date of Service: Jan 05, 2024 Billing Provider: JAVIER ANNE MD Common Visit Codes: [id number] INP/OBS CARE(HIGH) JAVIER ANNE MD Jan 05, 2024 11:11
--- NOTE | 2024-01-05 12:30 | DVHPN2 ---
Progress Note Date Seen: Jan 05, 2024 Medical Necessity Reason Pt with a Central, PICC or Fol: Yes The following are medically ne: PICC Line, Davies Catheter Reason for davies catheter: Strict I&O Objective vital signs Vital Sign Date Time Temp Pulse Resp B/P (MAP) Pulse Ox O2 Delivery O2 Flow Rate FiO2 01/05/24 12:00 16 100 Mechanical Ventilator+ 35 35 01/05/24 11:07 84 90/52 (65) 01/05/24 09:45 99.7 211.5 Total Intake and Output 01/04/24 01/04/24 01/05/24 15:00 23:00 07:00 Intake Total 996.504 ml 528.564 ml 788.190 ml Output Total 1000 ml 200 ml Balance 996.504 ml -471.436 ml 588.190 ml medications Current Medications Medications Dose Ordered Sig/Saige Route Start Time Stop Time Status Last Admin Dose Admin Sodium Chloride 10 ml Q8HR IV 12/17/23 22:00 01/05/24 05:26 10 ML Midazolam HCl 50 ml @ 1 mls/hr Q24H IV 12/25/23 12:30 01/04/24 18:16 2 MLS/HR Nitroglycerin 0.4 mg Q5MINP PRN SL 12/25/23 16:00 Vasopressin 20 units/Sodium Chloride 100 ml @ 9 mls/hr Q11H7M IV 12/25/23 17:15 12/29/23 11:50 9 MLS/HR Phenylephrine HCl 250 ml @ 30 mls/hr Q8H20M IV 12/25/23 17:15 12/26/23 00:42 48.75 MLS/HR Epinephrine HCl 250 ml @ 7.5 mls/hr Q24H IV 12/25/23 18:30 Pantoprazole Sodium 40 mg DAILY IV 12/26/23 10:00 01/05/24 10:02 40 MG Ipratropium [place] 0.5 mg Q6HR NEB 12/27/23 18:00 Cancel Norepinephrine Bitartrate 32 mg/ Sodium Chloride 250 ml @ 0.938 mls/ hr Q24H IV 12/27/23 14:45 01/04/24 15:01 4.688 MLS/HR Amino Acids 0 ml @ 0 mls/hr PER PHARMACY IV 12/28/23 12:00 Diagnostic Test (Pha) 1 strip Q6HR 12/28/23 18:00 01/05/24 05:27 1 STRIP Insulin Human Regular FOLLOW SLIDING SCALE Q6HR SC 12/28/23 18:00 01/04/24 17:28 2 UNITS Dextrose 50 ml UD IV 12/28/23 13:00 Insulin Glargine 15 units DAILY@1000 SC 12/29/23 12:15 01/05/24 10:05 15 UNITS Enoxaparin Sodium 40 mg DAILY SC 12/29/23 12:15 01/05/24 10:04 40 MG Vancomycin HCl 0 ml @ 0 mls/hr UD IV 01/01/24 12:15 Vancomycin HCl 200 ml @ 200 mls/hr Q14H IV 01/02/24 05:00 01/05/24 02:30 200 MLS/HR Dexmedetomidine HCl 400 mcg/ Dextrose 100 ml @ 4.065 mls/ hr Q24H IV 01/02/24 08:30 01/03/24 02:27 4.065 MLS/HR Meropenem 50 ml @ 17 mls/hr Q8HR IV 01/03/24 22:00 01/05/24 05:30 17 MLS/HR Fentanyl Citrate 250 ml @ 2.5 mls/hr Q24H IV 01/03/24 17:15 01/05/24 02:31 15 MLS/HR Fat Emulsion Intravenous 50 ml/ Potassium Acetate 20 meq/Potassium Phosphate 44 meq/ Magnesium Sulfate 4 meq/ Multivitamins 10 ml/Amino Acids/ Dextrose 1,081 ml @ 45 mls/hr Q24H2M IV 01/04/24 22:00 01/05/24 19:59 01/04/24 21:48 45 MLS/HR Fat Emulsion Intravenous 50 ml/ Potassium Acetate 30 meq/ Multivitamins 10 ml/Amino Acids/ Dextrose 1,025 ml @ 42 mls/hr [id number] IV 01/05/24 22:00 01/06/24 21:59 Furosemide 40 mg TID IV 01/05/24 14:00 UNV laboratory and microbiology Laboratory Tests 01/05/24 03:14 Test 01/05/24 03:14 Range/Units Serum Glucose 125 H 74-106 mg/dL Microbiology Date/Time Source Procedure Growth Status 12/30/23 20:08 Sputum Expectorated Sputum Gram Stain - Final Complete 12/30/23 20:08 Respiratory Culture - Final Enterobacter cloacae Complete 12/30/23 15:35 Blood Blood Culture - Final NO GROWTH AFTER 5 DAYS OF INCUBATION. Complete 12/30/23 12:00 Voided Urine Urine Culture - Final Complete 12/25/23 16:11 Nose MRSA Screen - Final Complete 12/18/23 13:03 Stool Stool Culture - Final Complete 12/18/23 13:03 Stool Shiga Toxin I & II - Final Complete Problem List/Assessment/Plan Problem List/Assessment/Plan INTUBATED HEMODYNAMICALLY BETTER BUT LABILE BACK ON MINIMAL VASOPRESSOR SUPPORT H/H STABLE ABD SOFT LESS DISTENDED BUT HAS SUBCUT EDEMA NO BM WBC PENDING CONTINUE CLOSE OBSERVATION SUPPORTIVE CARE CONSIDER REPEAT CT SCAN ABD AND PELVIS TO DETERMINE THE NEED FOR EMERGENT SURGERY INDICATED BASED ON ONGOING EVAL HOLD STEROIDS ALLERGY REACTION TO PREVIOUS [place] DRESSING RESOLVING NURSE AT BEDSIDE PULM EVAL ONGOING DC CENTRAL LINE SOURCE OF POSSIBLE SEPSIS ALLOW PICK LINE ABD DRESSING CHANGE NEEDED FAMILY AT BEDSIDE UPDATED ABOUT HER CRITICAL CONDITION AND ONGOING EVAL HER CARE WILL BE ONGOING WITH DR EUBANKS WHO WILL BE COVERING HE HAS BEEN UPDATED AND HIS HELP IS MUCH APPRECIATED Plan discussed with: Other My Orders My Orders Orders - NEGIN BUCKLEY MD Procedure Category Date Status Time Amino Acid PHA 01/05/24 In Process Infusion... W/Fat 22:00 Tpn Per Pharmacy [facility] 01/05/24 In Process 22:00 Comprehensive LAB 01/06/24 Verified Metabolic Panel 04:00 Phosphorus LAB 01/06/24 Verified 04:00 Magnesium LAB 01/06/24 Verified 04:00 Complete Blood Count LAB 01/05/24 In Process 12:04 Comprehensive LAB 01/05/24 Logged Metabolic Panel 12:04 Magnesium LAB 01/05/24 Logged 12:04 Lactic Acid W/ Reflex LAB 01/05/24 Logged Order 12:04 Dietary Evaluation Review Comments: 1) Advance pt diet when medically feasible to a Cardiac diet 2) Continue current plan of care Expected Outcomes/Goals: 1) F/U in 3-5 days NEGIN BUCKLEY MD Jan 05, 2024 12:29
[2024-01-05 13:12] LABS: Basophils # (auto) 0.3 10 ^3/uL (0-0.2); Basophils % (auto) 1.2 % (0.0-2.0); Eosinophils # (auto) 0.1 10 ^3/uL (0-0.8); Eosinophils % (auto) 0.3 % (0.0-7.0); Hematocrit 30.5 % (36.0-46.0); Hemoglobin 9.6 g/dL (12.2-16.2); Lymphocytes # (auto) 1.1 10 ^3/uL (0.4-5.4); Mean Corpuscular Hgb Conc. 31.5 g/dL (32.0-36.0); Mean Corpuscular Volume 79.3 fL (80.0-100.0); Monocytes # (auto) 2.1 10 ^3/uL (0-1.3); Monocytes % (auto) 7.4 % (0.0-12.0); Neutrophils # (auto) 24.1 10 ^3/uL (1.6-8.6); Neutrophils % (auto) 87.1 % (37.0-80.0); Nucleated Red Blood Cells % 0.1 %; Platelet Count (auto) 413 10^3/uL (140-450); Red Blood Cells 3.85 10^6/uL (4.0-5.20); White Blood Cell 27.7 10^3/uL (4.4-10.8)
[2024-01-05 13:13] LABS: Red Cell Distribution Width 25.2 % (11.8-14.3)
[2024-01-05] MEDS: FUROSEMIDE 40 MG/4 ML VIAL IV SCH (13:30)
[2024-01-05 13:35] LABS: Alanine Aminotransferase 71 U/L (7-40); Albumin 2.9 g/dL (3.2-4.8); Alkaline Phosphatase 310 U/L (46-116); Anion Gap 10 (5-15); Aspartate Aminotransferase 181 U/L (13-40); BUN/Creatinine Ratio 73.8 (10.0-20.0); Blood Urea Nitrogen 59 mg/dL (9-23); Calcium 8.7 mg/dL (8.7-10.4); Carbon Dioxide 26 mmol/L (20-31); Chloride 109 mmol/L (98-107); Glucose 138 mg/dL (74-106); Magnesium 2.4 mg/dL (1.6-2.6); Potassium 4.4 mmol/L (3.5-5.1); Sodium 145 mmol/L (136-145)
[2024-01-05 13:36] LABS: Bilirubin, Total 3.3 mg/dL (0.2-1.0); Total Protein 6.2 g/dL (5.7-8.2)
[2024-01-05 13:39] LABS: Lactic Acid w/Reflex 2.2 mmol/L (0.4-2.0)
[2024-01-05 13:40] LABS: INR 0.97 (0.9-1.15); Prothrombin Time 10.3 sec (9.3-11.8)
[2024-01-05 14:25] LABS: Anisocytosis Moderate
[2024-01-05 14:26] LABS: Large Platelets FEW
[2024-01-05 14:27] LABS: Platelet Estimate Adequa
[2024-01-05] MEDS: IOHEXOL 300 MG/ML 100ML BOTTLE IJ ONE (14:49)
[2024-01-05] MEDS: GASTROGRAFIN 30 ML SOL ONE (14:55)
[2024-01-05] MEDS: LIDOCAINE 1% (LOCAL ANESTH.) PF 5ml SDV ID ONE (15:38)
--- NOTE | 2024-01-05 17:48 | DVH ---
Exam: CT CT ABD PELVIS W CON-ORAL IV History: elevated WBC AND LACTIC ACID S/P EX LAP 12/24 COMPARISON: CT CT AB PEL WO CON-NO ORAL OR IV on DOS: 12/30/23, CT CT AB PEL WO CON-NO ORAL OR IV on DOS: 12/27/23, CT CT AB PEL WITH IV CON ONLY on DOS: 12/18/23 Technique: Multidetector spiral CT of the abdomen and pelvis was performed from lung bases to pubic symphysis. Intravenous contrast was administered during this examination. Portal venous imaging was obtained. Axial, coronal and sagittal multiplanar reformats were performed by the technologist on a separate workstation. Radiation Dose : Abdomen/Pelvis: CTDIvol 45 mGy, DLP 1544.77 mGy*cm. CONTRAST: Type of contrast: Omni 300 Contrast injected: 99 mL Findings: Lung Bases: Bibasilar atelectasis and consolidation. Liver: Numerous masses replacing the liver with largest measuring up to 184 mm similar to prior. Gallbladder and biliary Tree: Unremarkable Spleen: Unremarkable Pancreas: The pancreas is normal in appearance without focal lesions or abnormal enhancement. Adrenal Glands: Unremarkable Kidneys: No hydronephrosis. Right renal cyst. Bladder: Bladder is decompressed with a Azar catheter and cannot be adequately assessed. Bowel: The stomach is grossly normal in appearance. Small bowel and colon are normal in caliber and d istribution. The appendix is not visualized; however, no secondary findings of acute appendicitis id entified. Ascites: Small amount of abdominal ascites. Moderate amount of pelvic ascites with some complexity i n the right pelvis, possibly due to blood. No active extravasation. Lymphadenopathy: No mesenteric, retroperitoneal or periportal lymphadenopathy. Abdominal wall and Mesentery: Diffuse anasarca. Vasculature: The visualized abdominal aorta is normal in size and caliber. Abdominal and pelvic vess els demonstrate normal enhancement. Pelvic Organs: The uterus is surgically absent. Musculoskeletal: No aggressive focal bony lesions, acute fractures or dislocation. IMPRESSION: 1. Numerous masses replacing the liver. Findings are likely malignant. Bibasilar atelectasis and cons olidation. Right renal cyst. Moderate pelvic ascites with some complexity, possibly related to prior hemorrhage. No evidence of active hemorrhage. Diffuse anasarca. Pelvic fluid could be aspirated if i nfection or bowel injury is suspected. Radiation optimization: All CT scans at this facility use at least one of these dose optimization alan hniques: Automated exposure control mA and/or kV adjustment per patient size (includes targeted exams where dose is matched to clinical indication) or iterative reconstruction. HS:Y
--- NOTE | 2024-01-05 17:53 | DVH ---
Procedure: XY CHEST PORTABLE 01/05/2024 05:17 PM Indication: PICC LINE PLACEMENT BENNY Comparison: XY CHEST PORTABLE on DOS: 01/05/24, XY CHEST PORTABLE on DOS: 01/04/24, XY CHEST PORTABLE on DOS: 01/04/24 TECHNIQUE: XY CHEST PORTABLE FINDINGS: Medical devices: The left arm PICC line extends to the right atrium with the clearly depicted due to overlying lines and wires . The ETT ends 2.7 cm above the level of nany. Enteric tube extends to t he left hemiabdomen. The right IJ line ends at the cavoatrial junction. A multilead pacemaker/ AICD in the left chest wall with leads extending to the cardiac chambers. Cardiomediastinal: The heart is normal in size. Pulmonary vasculature is within normal limits. Athero sclerotic calcification of the aortic arch noted. Lungs: Mild right basilar pulmonary opacities likely subsegmental atelectasis. The costophrenic angle s are clear. No pneumothorax. Bones/soft tissues: No acute abnormality is noted. Several subcentimeter calcifications are seen proj ecting over the bilateral shoulders likely loose bodies. IMPRESSION: 1. The left arm PICC line extends to the right atrium with the clearly depicted due to overlying line s and wires . There is no pneumothorax.
[2024-01-05] MEDS: SODIUM CHLORIDE 0.9% 500 ML IV ONE (20:07)
[2024-01-05] MEDS: TPN PER PHARMACY IV NR (21:40)
[2024-01-05] MEDS: SODIUM CHLOR 0.9% PF (SALINE LOCK) 10ML VIAL/SYR IV SCH (21:53)
--- NOTE | 2024-01-05 23:14 | DVHPN2 ---
Progress Note - Dictate Date Seen: Jan 05, 2024 Medical Necessity Reason Pt with a Central, PICC or Fol: Yes The following are medically ne: PICC Line, Davies Catheter Reason for davies catheter: Strict I&O Subjective Patient seen and examined at bedside. Sedated, intubated on mechanical ventilator. Overnight events reviewed. vital signs Vital Sign Date Time Temp Pulse Resp B/P (MAP) Pulse Ox O2 Delivery O2 Flow Rate FiO2 01/05/24 23:08 116/76 01/05/24 22:45 100.2 88 15 98 212.4 01/05/24 22:22 30 01/05/24 22:00 Mechanical Ventilator+ Total Intake and Output 01/04/24 01/04/24 01/05/24 15:00 23:00 07:00 Intake Total 996.504 ml 528.564 ml 788.190 ml Output Total 1000 ml 200 ml Balance 996.504 ml -471.436 ml 588.190 ml medications Current Medications Medications Dose Ordered Sig/Saige Route Start Time Stop Time Status Last Admin Dose Admin Sodium Chloride 10 ml Q8HR IV 12/17/23 22:00 01/05/24 21:53 10 ML Midazolam HCl 50 ml @ 1 mls/hr Q24H IV 12/25/23 12:30 01/05/24 23:08 3 MLS/HR Nitroglycerin 0.4 mg Q5MINP PRN SL 12/25/23 16:00 Vasopressin 20 units/Sodium Chloride 100 ml @ 9 mls/hr Q11H7M IV 12/25/23 17:15 12/29/23 11:50 9 MLS/HR Phenylephrine HCl 250 ml @ 30 mls/hr Q8H20M IV 12/25/23 17:15 12/26/23 00:42 48.75 MLS/HR Epinephrine HCl 250 ml @ 7.5 mls/hr Q24H IV 12/25/23 18:30 Pantoprazole Sodium 40 mg DAILY IV 12/26/23 10:00 01/05/24 10:02 40 MG Ipratropium [place] 0.5 mg Q6HR NEB 12/27/23 18:00 Cancel Norepinephrine Bitartrate 32 mg/ Sodium Chloride 250 ml @ 0.938 mls/ hr Q24H IV 12/27/23 14:45 01/05/24 20:22 4.688 MLS/HR Amino Acids 0 ml @ 0 mls/hr PER PHARMACY IV 12/28/23 12:00 Diagnostic Test (Pha) 1 strip Q6HR 12/28/23 18:00 01/05/24 18:03 1 STRIP Insulin Human Regular FOLLOW SLIDING SCALE Q6HR SC 12/28/23 18:00 01/04/24 17:28 2 UNITS Dextrose 50 ml UD IV 12/28/23 13:00 Insulin Glargine 15 units DAILY@1000 SC 12/29/23 12:15 01/05/24 10:05 15 UNITS Enoxaparin Sodium 40 mg DAILY SC 12/29/23 12:15 01/05/24 10:04 40 MG Vancomycin HCl 0 ml @ 0 mls/hr UD IV 01/01/24 12:15 Vancomycin HCl 200 ml @ 200 mls/hr Q14H IV 01/02/24 05:00 Hold 01/05/24 02:30 200 MLS/HR Dexmedetomidine HCl 400 mcg/ Dextrose 100 ml @ 4.065 mls/ hr Q24H IV 01/02/24 08:30 01/03/24 02:27 4.065 MLS/HR Meropenem 50 ml @ 17 mls/hr Q8HR IV 01/03/24 22:00 01/05/24 21:39 17 MLS/HR Fentanyl Citrate 250 ml @ 2.5 mls/hr Q24H IV 01/03/24 17:15 01/05/24 20:34 15 MLS/HR Fat Emulsion Intravenous 50 ml/ Potassium Acetate 30 meq/ Multivitamins 10 ml/Amino Acids/ Dextrose 1,025 ml @ 42 mls/hr [id number] IV 01/05/24 22:00 01/06/24 21:59 01/05/24 21:40 42 MLS/HR Furosemide 40 mg TID IV 01/05/24 14:00 01/05/24 21:39 40 MG Sodium Chloride 10 ml QSHIFT@10,22 IV 01/05/24 22:00 01/05/24 21:53 10 ML objective Gen.: Patient lying in bed in medical ICU. Sedated, intubated on mechanical ventilator. Head: Normocephalic, atraumatic. Eyes: PERRLA. Ears: Normal external anatomy. Throat: Endotracheal tube and orogastric tube in place. Neck: Supple, trachea midline. Chest: Transmitted breath sounds bilaterally. Decreased air entry bilaterally. No wheezing. Bibasilar crackles. Cardiovascular: Positive S1, positive S2. Regular rate and rhythm. Abdomen: Positive bowel sounds in all 4 quadrants. Soft, nontender, nondistended. : Davies in place. Normal external genitalia. Rectal: Deferred. Skin: Warm, dry. Intact. Extremities: 2+ radial pulses bilaterally. No lower extremity edema. Neuro: Sedated. laboratory and microbiology Laboratory Tests 01/05/24 12:55 Test 01/05/24 12:55 Range/Units Serum Glucose 138 H 74-106 mg/dL Assessment/Plan Impression: Acute hypoxic respiratory failure On mechanical ventilator Sepsis due to liver abscess Possible MARCIANO in liver Chronic systolic heart failure CAD s/p PTCA with multiple stents and s/p defibrillator Distributive shock Metastatic colon cancer status post left colectomy Iron deficiency anemia Acute kidney injury due to shock Metabolic acidosis Lactic acidosis Events: Remains on vent support Currently on assist control with respiratory rate of 16, tidal volume 350, PEEP of 5, FiO2 of 35%. Taper FiO2 as tolerated Sedated on Fentanyl 150. On pressors for hemodynamic support. On Levophed at 12 micrograms/minute Titrate to keep MAP above 65 mmHg/SBP above 90 mmHg. Improving pressor requirements Continue antibiotics - vancomycin. Diurese w/ Lasix BID as tolerated Potassium, magnesium supplementation Monitor renal function TPN for nutritional support Patient is s/p exploratory laparotomy - no fever in last 24 hours. PICC line placement + Remove femoral central line S/p therapeutic bronchoscopy with RML BAL on 01/03 Labs and imaging reviewed. Rest of plan as noted below. Plan: s/p intubation on mechanical ventilator CXR image and report reviewed. Devices in place. Hypoinflation. ABG reviewed. Acidemia due to metabolic acidosis Assist control mode with respiratory rate of 16, tidal volume 350, PEEP of 5, FiO2 of 35%. Titrate FIO2 to keep O2 saturation above 92%. VAP bundle Daily ABG and CXR while intubated. Sedate for ventilatory synchrony On pressors for hemodynamic support. Titrate to keep MAP above 65 mmHg/SBP above 90 mmHg. Continue antibiotics. F/u cultures. Blood cultures no growth after 5 days. Sputum culture notable for Enterobacter cloacae. Monitor renal function Monitor ins/outs Diurese with Lasix BID Monitor electrolytes. Supplement as necessary. Monitor lactic acid due to lactic acidosis. Nutritional support. Accucheks, ISS. GI/DVT prophylaxis. Condition: Critical Prognosis: Poor given multiple comorbidities. Rest of plan per hospitalist and other consultants. A total of 35 minutes of critical care time was spent reviewing the patient record, examining the patient, making a diagnostic and therapeutic plan, discussing this plan with the medical personnel, following up on diagnostic studies and following the patient for clinical stability excluding any and all procedures. At least 50% of this time was spent in direct, [id number] contact. Thank you Dr. Heath for allowing me to participate in this patient's care. Further recommendations will depend on patient's clinical course. Please do not hesitate to contact me if you have any questions or concerns. This medical document was created using an electronic medical record system with [employer] dictation system. Although this document has been carefully reviewed, there may still be some phonetic and typographical errors. These areas are purely typographical due to imperfections of the software programs, and do not reflect any compromise in the patient's medical care. Dietary Evaluation Review Comments: 1) Advance pt diet when medically feasible to a Cardiac diet 2) Continue current plan of care Expected Outcomes/Goals: 1) F/U in 3-5 days Plan discussed with: Other (WALKER Tavera) Critical Care Time(min): 35 DAYSI DYKES MD Jan 05, 2024 23:14
[2024-01-06] VITALS (104 sets, daily range): BP systolic 86–139; BP diastolic 46–79; PULSE 68–113; RESP 10–28; TEMP 99–100.4; O2SAT 92–100
[2024-01-06 04:27] LABS: Hematocrit 28.4 % (36.0-46.0); Hemoglobin 8.9 g/dL (12.2-16.2); Mean Corpuscular Hemoglobin 25.6 pg (28.0-32.0); Mean Corpuscular Hgb Conc. 31.5 g/dL (32.0-36.0); Mean Corpuscular Volume 81.3 fL (80.0-100.0); Platelet Count (auto) 352 10^3/uL (140-450); Red Blood Cells 3.49 10^6/uL (4.0-5.20); White Blood Cell 26.9 10^3/uL (4.4-10.8)
[2024-01-06 04:29] LABS: Red Cell Distribution Width 25.4 % (11.8-14.3)
[2024-01-06 04:31] LABS: Basophils % (manual) 0 (0.0-2.0); Blast Cells 0; Eosinophils % (manual) 0 (0-7); Promyelocytes % 0; Reactive Lymphocytes 0
--- NOTE | 2024-01-06 05:01 | DVH ---
CHEST RADIOGRAPH Indication: ET PLACEMENT Technique: Single frontal view of the chest was obtained Comparison: XY CHEST PORTABLE on DOS: 01/05/24 FINDINGS: Lines and Tubes: Endotracheal tube terminates 3.9 cm above the nany. Enteric tube terminates in th e stomach. AICD is present. Left PICC not visualized. Lungs: Mild right basilar atelectasis. Left lung is clear. Pleura: No effusion. No pneumothorax. Cardiomediastinal contours: Unremarkable Bones: No acute osseous abnormality. IMPRESSION: 1. Left PICC not visualized. Other lines and support tubes are unchanged. 2. Mild right basilar atelectasis.
[2024-01-06 05:40] LABS: Alanine Aminotransferase 72 U/L (7-40); Alkaline Phosphatase 342 U/L (46-116); Anion Gap 10 (5-15); Aspartate Aminotransferase 204 U/L (13-40); Blood Urea Nitrogen 57 mg/dL (9-23); Calcium 8.6 mg/dL (8.7-10.4); Carbon Dioxide 26 mmol/L (20-31); Chloride 110 mmol/L (98-107); Glucose 133 mg/dL (74-106); Magnesium 2.2 mg/dL (1.6-2.6); Potassium 3.8 mmol/L (3.5-5.1); Sodium 146 mmol/L (136-145)
[2024-01-06 05:41] LABS: Albumin 2.8 g/dL (3.2-4.8); Bilirubin, Total 3.4 mg/dL (0.2-1.0); Phosphorus 4.9 mg/dL (2.4-5.1); Total Protein 6.2 g/dL (5.7-8.2)
[2024-01-06 06:51] LABS: Anisocytosis Moderate; Band Neutrophils % (manual) 1; Lymphocytes % (manual) 5 (10.0-50.0); Metamyelocytes % 1; Monocytes % (manual) 4 (0-12); Myelocytes % 2
[2024-01-06 06:52] LABS: Large Platelets FEW; Ovalocytes FEW; Platelet Estimate Adequate
[2024-01-06 10:56] LABS: Base Excess 0.3 mmol/L (-2.0-3.0)
--- NOTE | 2024-01-06 11:12 | DVHPN2 ---
Subjective The patient seen and examined at bedside. No change overnight. The patient remained intubated. Reviewed: Care Plan, H&P, Labs, Medications, Previous Orders, Radiology Changes from previous H/P or p: No Changes Eyes: No Pain, No Vision change, No Conjunctivae inflammation, No Eyelid inflammation, No Other, No Redness ENT: No Ear pain, No Ear discharge, No Nose pain, No Nose discharge, No Nose congestion, No Mouth pain, No Mouth swelling, No Throat pain, No Throat swelling, No Other Cardiovascular: No Chest Pain, No Palpitations, No Orthopnea, No Paroxysmal Noc. Dyspnea, No Edema, No Lt Headedness, No Other Respiratory: Cough, Dry, Shortness of breath Gastrointestinal: Nausea; No Vomiting; Abdominal Pain; No Diarrhea, No Constipation, No Melena, No Hematochezia, No Other Genitourinary: Dysuria; No Frequency, No Incontinence, No Hematuria, No Retention, No Other Musculoskeletal: No other, No neck pain, No shoulder pain, No arm pain, No back pain, No hand pain, No leg pain, No foot pain Skin: No Rash, No Lesions, No Jaundice, No Bruising, No Other Objective Vitals Vital Signs Date Time Temp Pulse Resp B/P (MAP) Pulse Ox O2 Delivery O2 Flow Rate FiO2 01/06/24 10:22 86 24 104/59 (74) 97 30 01/06/24 08:00 Mechanical Ventilator+ 01/06/24 07:00 99.1 210.4 Intake/Output Intake and Output 01/06/24 07:00 Intake Total 1551.007 ml Output Total 2525 ml Balance -973.993 ml Intake Oral 0 ml IV Total 1551.007 ml Output Urine Total 2400 ml Gastric Drainage Total 125 ml General Appearance: Other (sedated and intubated) HEENT: PERRLA Lungs: Clear to auscultation Cardiovascular: Regular rate, Normal S1, Normal S2 Abdomen: Soft, Other (noo bowel sounds) Extremities: Other (edema) Neuro: Other (sedated and ventilated/has cough and gag reflex) Medications Current Medications Medications Dose Ordered Sig/Saige Route Start Time Stop Time Status Last Admin Dose Admin Sodium Chloride 10 ml Q8HR IV 12/17/23 22:00 01/06/24 05:39 10 ML Midazolam HCl 50 ml @ 1 mls/hr Q24H IV 12/25/23 12:30 01/05/24 23:08 3 MLS/HR Nitroglycerin 0.4 mg Q5MINP PRN SL 12/25/23 16:00 Vasopressin 20 units/Sodium Chloride 100 ml @ 9 mls/hr Q11H7M IV 12/25/23 17:15 12/29/23 11:50 9 MLS/HR Phenylephrine HCl 250 ml @ 30 mls/hr Q8H20M IV 12/25/23 17:15 12/26/23 00:42 48.75 MLS/HR Epinephrine HCl 250 ml @ 7.5 mls/hr Q24H IV 12/25/23 18:30 Pantoprazole Sodium 40 mg DAILY IV 12/26/23 10:00 01/06/24 10:12 40 MG Ipratropium [place] 0.5 mg Q6HR NEB 12/27/23 18:00 Cancel Norepinephrine Bitartrate 32 mg/ Sodium Chloride 250 ml @ 0.938 mls/ hr Q24H IV 12/27/23 14:45 01/05/24 20:22 4.688 MLS/HR Amino Acids 0 ml @ 0 mls/hr PER PHARMACY IV 12/28/23 12:00 Diagnostic Test (Pha) 1 strip Q6HR 12/28/23 18:00 01/06/24 05:39 1 STRIP Insulin Human Regular FOLLOW SLIDING SCALE Q6HR SC 12/28/23 18:00 01/04/24 17:28 2 UNITS Dextrose 50 ml UD IV 12/28/23 13:00 Insulin Glargine 15 units DAILY@1000 SC 12/29/23 12:15 01/05/24 10:05 15 UNITS Enoxaparin Sodium 40 mg DAILY SC 12/29/23 12:15 01/05/24 10:04 40 MG Vancomycin HCl 0 ml @ 0 mls/hr UD IV 01/01/24 12:15 Vancomycin HCl 200 ml @ 200 mls/hr Q14H IV 01/02/24 05:00 Hold 01/05/24 02:30 200 MLS/HR Dexmedetomidine HCl 400 mcg/ Dextrose 100 ml @ 4.065 mls/ hr Q24H IV 01/02/24 08:30 01/03/24 02:27 4.065 MLS/HR Meropenem 50 ml @ 17 mls/hr Q8HR IV 01/03/24 22:00 01/06/24 05:39 17 MLS/HR Fentanyl Citrate 250 ml @ 2.5 mls/hr Q24H IV 01/03/24 17:15 01/05/24 20:34 15 MLS/HR Fat Emulsion Intravenous 50 ml/ Potassium Acetate 30 meq/ Multivitamins 10 ml/Amino Acids/ Dextrose 1,025 ml @ 42 mls/hr [id number] IV 01/05/24 22:00 01/06/24 21:59 01/05/24 21:40 42 MLS/HR Furosemide 40 mg TID IV 01/05/24 14:00 01/06/24 05:39 40 MG Sodium Chloride 10 ml QSHIFT@ IV 01/05/24 22:00 01/06/24 10:13 10 ML Fat Emulsion Intravenous 50 ml/ Potassium Acetate 40 meq/Magnesium Sulfate 4 meq/ Multivitamins 10 ml/Amino Acids/ Dextrose/Purified Water 1,031 ml @ 42 mls/hr [id number] IV 01/06/24 22:00 01/07/24 21:59 Laboratory Results Laboratory Tests 01/06/24 03:50 01/06/24 05:00 Chemistry Test 01/05/24 12:55 01/06/24 05:00 Albumin 2.9 g/dL (3.2-4.8) L 2.8 g/dL (3.2-4.8) L Calcium Level 8.7 mg/dL (8.7-10.4) 8.6 mg/dL (8.7-10.4) L Magnesium Level 2.4 mg/dL (1.6-2.6) 2.2 mg/dL (1.6-2.6) Total Protein 6.2 g/dL (5.7-8.2) 6.2 g/dL (5.7-8.2) Phosphorus Level 4.9 mg/dL (2.4-5.1) Coagulation Test 01/05/24 13:03 Prothrombin Time 10.3 sec (9.3-11.8) Prothrombin Time INR 0.97 (0.9-1.15) LFT Test 01/05/24 12:55 01/06/24 05:00 Alanine Aminotransferase (ALT) 71 U/L (7-40) H 72 U/L (7-40) H Alkaline Phosphatase 310 U/L (46-116) H 342 U/L (46-116) H Aspartate Amino Transferase (AST) 181 U/L (13-40) H 204 U/L (13-40) H Total Bilirubin 3.3 mg/dL (0.2-1.0) H 3.4 mg/dL (0.2-1.0) H Urinalysis Test 12/26/23 01:30 Urine Color Yellow (Yellow) Urine Clarity Turbid (Clear) H Urine pH 5.5 (5.0-9.0) Urine Specific [place] 1.025 (1.001-1.035) Urine Protein 1+ (Negative) H Urine Ketones Trace (Negative) Urine Blood 3+ /uL (Negative) H Urine Nitrite Negative (Negative) Urine Bilirubin Negative (Negative) Urine Urobilinogen Normal mg/dL (Negative) Urine Leukocyte Esterase Negative /uL (Negative) Urine RBC 87 /hpf (0 - 4) Urine WBC 6 /hpf (0 - 5) Urine Squamous Epithelial Cells None seen /hpf (<5) Urine Bacteria Few /hpf (None Seen) H Urine Hyaline Casts Mod /lpf (0 - 2) Urine Granular Casts Few /lpf (0) Urine Mucus Few (None Seen) Urine Yeast (Budding) Occasional /hpf (None Urine Creatinine 64.14 mg/dL (30.0-125.0) Urine Protein/Creatinine Ratio 1.97 Urine Sodium 35 mmol/L (40-220) L Urine Glucose Normal mg/dL (Normal) Urine Total Protein 126.3 mg/dL (1-14) H Blood Gas Results Test 01/06/24 10:51 Arterial Blood pH 7.439 (7.350-7.450) FiO2 % 30.0 Microbiology Microbiology Date/Time Source Procedure Growth Status 12/30/23 20:08 Sputum Expectorated Sputum Gram Stain - Final Complete 12/30/23 20:08 Respiratory Culture - Final Enterobacter cloacae Complete 12/30/23 15:35 Blood Blood Culture - Final NO GROWTH AFTER 5 DAYS OF INCUBATION. Complete 12/30/23 12:00 Voided Urine Urine Culture - Final Complete 12/25/23 16:11 Nose MRSA Screen - Final Complete 12/18/23 13:03 Stool Stool Culture - Final Complete 12/18/23 13:03 Stool Shiga Toxin I & II - Final Complete Labs and/or images reviewed: Labs reviewed by me Assessment/Plan Assessment/Plan Acute hypoxic respiratory failure, on mechanical ventilator did not tolerate cpap trial still with enormous secretions status post bronchoscopy. Sepsis due to liver abscess Chronic systolic heart failure CAD s/p PTCA with multiple stents and s/p defibrillator Distributive shock Metastatic colon cancer to liver status post left colectomy Iron deficiency anemia Acute kidney injury due to shock Metabolic acidosis Lactic acidosis Continuing current management with ventilation support. Continuing with imipenem and vancomycin IV Blood culture and urine culture remained negative Continuing TPN. Continuing with vasopressor. Prognosis guarded Plan discussed with: Spouse My Orders Orders - JAVIER ANNE MD Procedure Category Date Status Time * [place] CONS 01/05/24 Transmitted Consult Date of Service: Jan 06, 2024 Billing Provider: JAVIER ANNE MD Common Visit Codes: [id number] INP/OBS CARE(HIGH) JAVIER ANNE MD Jan 06, 2024 11:12
[2024-01-06] MEDS ORDERED: ETOMIDATE (2MG/ML) 20ML VIAL IV ONE (11:16)
--- NOTE | 2024-01-06 11:21 | DVH ---
EXAM: XY CHEST PORTABLE Indication: left sided PICC tip confirmation Technique: Single frontal view of the chest was obtained Comparison: XY CHEST PORTABLE on DOS: 01/06/24, XY CHEST PORTABLE on DOS: 01/05/24, XY CHEST PORTABLE on DOS: 01/05/24, XY CHEST PORTABLE on DOS: 01/04/24, XY CHEST PORTABLE on DOS: 01/04/24, XY CHEST P ORTABLE on DOS: 01/06/24 FINDINGS: Lines and Tubes: Endotracheal tube terminates 3.9 cm above the nany. Enteric tube terminates in th e stomach. AICD is present. Left PICC tip projects over the expected region of the superior vena cava . Lungs: Low lung volumes with right basilar atelectasis. Pleura: No effusion. No pneumothorax. Cardiomediastinal contours: Unremarkable Bones: No acute osseous abnormality. IMPRESSION: Left PICC tip projects over the expected region of the superior vena cava.
--- NOTE | 2024-01-06 12:28 | DVHPN2 ---
Progress Note Date Seen: Jan 06, 2024 Medical Necessity Reason Pt with a Central, PICC or Fol: Yes The following are medically ne: PICC Line, Davies Catheter Reason for davies catheter: Strict I&O Objective vital signs Vital Sign Date Time Temp Pulse Resp B/P (MAP) Pulse Ox O2 Delivery O2 Flow Rate FiO2 01/06/24 12:10 99 24 105/70 (82) 98 30 01/06/24 08:00 Mechanical Ventilator+ 01/06/24 07:00 99.1 210.4 Total Intake and Output 01/05/24 01/05/24 01/06/24 15:00 23:00 07:00 Intake Total 567.001 ml 473.190 ml 510.816 ml Output Total 800 ml 1725 ml Balance 567.001 ml -326.810 ml -1214.184 ml medications Current Medications Medications Dose Ordered Sig/Saige Route Start Time Stop Time Status Last Admin Dose Admin Sodium Chloride 10 ml Q8HR IV 12/17/23 22:00 01/06/24 05:39 10 ML Midazolam HCl 50 ml @ 1 mls/hr Q24H IV 12/25/23 12:30 01/05/24 23:08 3 MLS/HR Nitroglycerin 0.4 mg Q5MINP PRN SL 12/25/23 16:00 Vasopressin 20 units/Sodium Chloride 100 ml @ 9 mls/hr Q11H7M IV 12/25/23 17:15 12/29/23 11:50 9 MLS/HR Phenylephrine HCl 250 ml @ 30 mls/hr Q8H20M IV 12/25/23 17:15 12/26/23 00:42 48.75 MLS/HR Epinephrine HCl 250 ml @ 7.5 mls/hr Q24H IV 12/25/23 18:30 Pantoprazole Sodium 40 mg DAILY IV 12/26/23 10:00 01/06/24 10:12 40 MG Ipratropium [place] 0.5 mg Q6HR NEB 12/27/23 18:00 Cancel Norepinephrine Bitartrate 32 mg/ Sodium Chloride 250 ml @ 0.938 mls/ hr Q24H IV 12/27/23 14:45 01/05/24 20:22 4.688 MLS/HR Amino Acids 0 ml @ 0 mls/hr PER PHARMACY IV 12/28/23 12:00 Diagnostic Test (Pha) 1 strip Q6HR 12/28/23 18:00 01/06/24 05:39 1 STRIP Insulin Human Regular FOLLOW SLIDING SCALE Q6HR SC 12/28/23 18:00 01/04/24 17:28 2 UNITS Dextrose 50 ml UD IV 12/28/23 13:00 Insulin Glargine 15 units DAILY@1000 SC 12/29/23 12:15 01/06/24 11:35 15 UNITS Enoxaparin Sodium 40 mg DAILY SC 12/29/23 12:15 01/05/24 10:04 40 MG Vancomycin HCl 0 ml @ 0 mls/hr UD IV 01/01/24 12:15 Vancomycin HCl 200 ml @ 200 mls/hr Q14H IV 01/02/24 05:00 Hold 01/05/24 02:30 200 MLS/HR Dexmedetomidine HCl 400 mcg/ Dextrose 100 ml @ 4.065 mls/ hr Q24H IV 01/02/24 08:30 01/03/24 02:27 4.065 MLS/HR Meropenem 50 ml @ 17 mls/hr Q8HR IV 01/03/24 22:00 01/06/24 05:39 17 MLS/HR Fentanyl Citrate 250 ml @ 2.5 mls/hr Q24H IV 01/03/24 17:15 01/06/24 11:41 15 MLS/HR Fat Emulsion Intravenous 50 ml/ Potassium Acetate 30 meq/ Multivitamins 10 ml/Amino Acids/ Dextrose 1,025 ml @ 42 mls/hr [id number] IV 01/05/24 22:00 01/06/24 21:59 01/05/24 21:40 42 MLS/HR Furosemide 40 mg TID IV 01/05/24 14:00 01/06/24 05:39 40 MG Sodium Chloride 10 ml QSHIFT@10,22 IV 01/05/24 22:00 01/06/24 10:13 10 ML Fat Emulsion Intravenous 50 ml/ Potassium Acetate 40 meq/Magnesium Sulfate 4 meq/ Multivitamins 10 ml/Amino Acids/ Dextrose/Purified Water 1,031 ml @ 42 mls/hr [id number] IV 01/06/24 22:00 01/07/24 21:59 laboratory and microbiology Laboratory Tests 01/06/24 05:00 01/06/24 03:50 Test 01/06/24 05:00 Range/Units Serum Glucose 133 H 74-106 mg/dL Problem List/Assessment/Plan Problem List/Assessment/Plan 01/06/[address] Aditi BUCKLEY, ABDOMEN APPEARS TO BE TENDER IN THE LEFT LOWER QUADRANT, WOUND IS CLEAN AND WELL APPROXIMATED, DRAINAGE FROM LOWER PORTION OF MIDLINE WOUND.AWAITING ir intervention Plan discussed with: Patient Dietary Evaluation Review Comments: 1) Advance pt diet when medically feasible to a Cardiac diet 2) Continue current plan of care Expected Outcomes/Goals: 1) F/U in 3-5 days ASPEN EUBANKS MD Jan 06, 2024 12:28
--- NOTE | 2024-01-06 15:18 | DVHINCON2 ---
Date of service: Jan 06, [address] Guerra Reason for Consultation Leucocytosis History of Present Illness Patient is a 63-year-old female presents to the hospital with a chief complaint of abdominal pain for the past 1 week prior to this admission. she is intubated and sedated. hence most of the information obtained from chart from charts She was experiencing abdominal pain, most prominent on suprapubic area and lower quadrants. she described pain as "cramping like pain" which is moderate to severe. Pain worsens during bowel movements and some time associated with red blood. She also states that for the last couple of months she has been experiencing small amount of bowel movements, but they are well-formed. For the last three months she has been treated for UTIs, pyelonephritis, with Nitrofurantoin, Keflex and also with Cefuroxime. she underwent on 12/24 : PROCEDURE: Laparoscopic lysis of adhesions with open left colon resection and primary anastomosis. she is intubated since surgery. CT abdomen and plevis show numerous masses concerning for malignancy post surgery her wbc count also went up. and also had fever post op 12/29 Ct abdomen 1. Redemonstrated are postsurgical changes in the bowel with anastomotic sutures in the sigmoid colon. There is again thickened appearance of the bowel in the lower abdomen and pelvis which May relate to post treatment changes.. There is no evidence of bowel obstruction. 2. Liver is enlarged with numerous poorly defined hypodense masses likely metastatic lesions. 3. There is small amount of ascites and edema in the mesentery. There are small bilateral pleural effusions. There is diffuse anasarca in the soft tissues. 01/06: Chest x-ray: Stable position of the support lines and tubes. No acute cardiopulmonary abnormality. 01/04: Abdomen/Pelvis CT: Numerous masses replacing the liver. Findings are likely malignant. Bibasilar atelectasis and consolidation. Right renal cyst. Moderate pelvic ascites with some complexity, possibly related to prior hemorrhage. No evidence of active hemorrhage. Diffuse anasarca. Pelvic fluid could be aspirated if infection or bowel injury is suspected. 01/01: Head CT: No acute intracranial abnormality. Mild cerebral atrophy. Culture History: Sputum culture: 12/29: Enterobacter cloacae Blood culture: 12/29: No growth Urine culture: 12/29: No growth MRSA: Negative Past Medical History Patient's past medical history is significant for chronic systolic heart failure, status post defibrillator placement, CAD with status post PTCA multiple stents, hyperlipidemia, hypertension, recurrent UTI, hemorrhoid and partial hysterectomy. Family History: Cardiovascular disease G8 MOTHER Cerebrovascular accident (CVA) G8 MOTHER Diabetes mellitus G8 MOTHER Thyroid disease G8 MOTHER Allergies: Coded Allergies: Lisinopril (Verified Allergy, Unknown, 12/29/17) Morphine (Verified Allergy, Unknown, 09/21/17) Home Meds Reported Medications Empagliflozin (Jardiance) 10 Mg Tab, 10 MG PO DAILY, TAB 12/19/23 Sacubitril-Valsartan (Entresto 24-26 mg) 1 Tab Tab, 1 TAB PO BID, TAB 12/18/23 Temazepam (Restoril) 15 Mg Cp, 1 CAP PO QPM PRN for FOR INSOMNIA, #30 CAP 1 Refill 09/22/17 Metoprolol Succinate (Toprol Xl) 25 Mg Tab, 25 MG PO DAILY, TAB 09/21/17 Atorvastatin Calcium (Lipitor) 80 Mg Tab, 80 MG PO HS, TAB 09/21/17 Aspirin (Aspir-Low) 81 Mg Tab, 81 MG PO DAILY for 30 Days, MG 09/21/17 Current Medications Current Medications Medications (Trade) Dose Ordered Sig/Saige Route PRN Reason Start Time Stop Time Status Last Admin Fat Emulsion Intravenous 50 ml/ Potassium Acetate 30 meq/ Multivitamins 10 ml/Amino Acids/ Dextrose 1,025 ml @ 42 mls/hr [id number] IV 01/05/24 22:00 01/06/24 21:59 01/05/24 21:40 Sodium Chloride (Saline Lock Ns) 10 ml QSHIFT@22 IV 01/05/24 22:00 01/06/24 10:13 Fat Emulsion Intravenous 50 ml/ Potassium Acetate 40 meq/Magnesium Sulfate 4 meq/ Multivitamins 10 ml/Amino Acids/ Dextrose/Purified Water 1,031 ml @ 42 mls/hr [id number] IV 01/06/24 22:00 01/07/24 21:59 Review of Systems Constitutional: Yes: Sweats; No: Fever, Chills, Weakness, Malaise, Other Eyes: No: Pain, Vision change, Conjunctivae inflammation, Eyelid inflammation, Other, Redness ENT: No: Ear pain, Ear discharge, Nose pain, Nose discharge, Nose congestion, Mouth pain, Mouth swelling, Throat pain, Throat swelling, Other Respiratory: Cough, Dry, Shortness of breath Cardiovascular: No: Chest Pain, Palpitations, Orthopnea, Paroxysmal Noc. Dyspnea, Edema, Lt Headedness, Other Gastrointestinal: Nausea, Abdominal Pain; No: Vomiting, Diarrhea, Constipation, Melena, Hematochezia, Other Genitourinary: Dysuria; No Frequency, No Incontinence, No Hematuria, No Retention, No Other Musculoskeletal: No: other, neck pain, shoulder pain, arm pain, back pain, hand pain, leg pain, foot pain Skin: No: Rash, Lesions, Jaundice, Bruising, Other Neurological: No: Weakness, Numbness, Incoordination, Change in speech, Confusion, Seizures, Other Vital Signs Vital Signs Date Time Temp Pulse Resp B/P (MAP) Pulse Ox O2 Delivery O2 Flow Rate FiO2 01/06/24 15:02 102 23 108/69 (82) 98 30 01/06/24 12:00 Mechanical Ventilator+ 01/06/24 12:00 99.9 211.8 Physical Exam General Appearance: intubated sedated HEENT: Atraumatic, PERRLA, EOMI, Mucous membr. moist/pink Respiratory: Clear to auscultation, Normal air movement Cardiovascular: Regular rate, Normal S1, Normal S2, No murmurs Abdominal: Normal bowel sounds, (Abdomen is mildly tender in the suprapubic region) s/p laporoscopic scar. abdomen distended Extremities: No clubbing, No cyanosis, No edema, Normal pulses, No tenderness/swelling Skin: skin mottling Neuro: unable to assess Labs/Diagnostic Data Labs Test 01/06/24 11:18 01/06/24 10:51 01/06/24 05:00 01/06/24 03:50 Range/Units POC Glucose 99 70-106 mg/dl Blood Gas Specimen Type Arterial Blood Gas Sample Site Right brachial Blood Gas Patient Temperature 37.0 Arterial Blood Date Drawn [id number] Arterial Blood pH 7.439 7.350-7.450 Arterial Blood Partial Pressure CO2 36.7 32.0-45.0 mmHg Arterial Blood Partial Pressure O2 72.1 L 83.0-108.0 mmHg Arterial Blood HCO3 24.3 21.0-28.0 mmol/L Arterial Blood Oxygen Saturation 92.8 L 94.0-98.0 % Arterial Blood Base Excess 0.3 -2.0-3.0 mmol/L Arterial Blood Oxyhemoglobin 92.0 L 94.0-98.0 % Arterial Blood Carboxyhemoglobin 0.6 0.5-1.5 % Arterial Blood Methemoglobin 0.3 0.0-1.5 % Aquiles Test N/a Blood Gas Total Hemoglobin 10.50 L 12.0-16.0 g/dL Blood Gas Set Respiration Rate 16.0 Blood Gas Modality Vent - ac FiO2 % 30.0 Blood Gas Tidal Volume 350.0 Blood Gas PEEP or CPAP 5.0 Sodium Level 146 H 136-145 mmol/L Potassium Level 3.8 3.5-5.1 mmol/L Chloride Level 110 H 98-107 mmol/L Carbon Dioxide Level 26 20-31 mmol/L Anion Gap 10 5-15 Blood Urea Nitrogen 57 H 9-23 mg/dL Creatinine 0.74 0.550-1.02 mg/dL Glomerular Filtration Rate Calc 92 >90 mL/min BUN/Creatinine Ratio 77.0 H 10.0-20.0 Serum Glucose 133 H 74-106 mg/dL Calcium Level 8.6 L 8.7-10.4 mg/dL Phosphorus Level 4.9 2.4-5.1 mg/dL Magnesium Level 2.2 1.6-2.6 mg/dL Total Bilirubin 3.4 H 0.2-1.0 mg/dL Aspartate Amino Transferase (AST) 204 H 13-40 U/L Alanine Aminotransferase (ALT) 72 H 7-40 U/L Alkaline Phosphatase 342 H 46-116 U/L Total Protein 6.2 5.7-8.2 g/dL Albumin 2.8 L 3.2-4.8 g/dL White Blood Count 26.9 H 4.4-10.8 10^3/uL Red Blood Count 3.49 L 4.0-5.20 10^6/uL Hemoglobin 8.9 L 12.2-16.2 g/dL Hematocrit 28.4 L 36.0-46.0 % Mean Corpuscular Volume 81.3 80.0-100.0 fL Mean Corpuscular Hemoglobin 25.6 L 28.0-32.0 pg Mean Corpuscular Hemoglobin Concent 31.5 L 32.0-36.0 g/dL Red Cell Distribution Width 25.4 H 11.8-14.3 % Platelet Count 352 140-450 10^3/uL Mean Platelet Volume 10.3 6.9-10.8 fL Neutrophils (%) (Auto) 37.0-80.0 % Lymphocytes (%) (Auto) 10.0-50.0 % Monocytes (%) (Auto) 0.0-12.0 % Basophils (%) (Auto) 0.0-2.0 % Neutrophils # (Auto) 1.6-8.6 10 ^3/uL Lymphocytes # (Auto) 0.4-5.4 10 ^3/uL Monocytes # (Auto) 0-1.3 10 ^3/uL Differential Total Cells Counted 100.0 100 Neutrophils % (Manual) 87 H 37.0-80.0 Band Neutrophils % (Manual) 1 Lymphocytes % (Manual) 5 L 10.0-50.0 Monocytes % (Manual) 4 0-12 Eosinophils % (Manual) 0 0-7 Basophils % (Manual) 0 0.0-2.0 Metamyelocytes % (manual) 1 Myelocytes % (Manual) 2 Promyelocytes % (Manual) 0 Blast Cells % (Manual) 0 Reactive Lymphocytes 0 Platelet Estimate Adequate Large Platelets Few Anisocytosis (manual) Moderate Ovalocytes Few [place] Cells Many Schistocytes Moderate Random Vancomycin Level 21.3 H 5-10 ug/mL Test 01/05/24 17:55 01/05/24 13:03 01/05/24 12:55 01/04/24 11:30 Range/Units Lactic Acid Level 2.4 *H 0.4-2.0 mmol/L Vancomycin Level Trough 29.2 H 5-10 ug/mL Prothrombin Time 10.3 9.3-11.8 sec Prothrombin Time INR 0.97 0.9-1.15 Eosinophils (%) (Auto) 0.3 0.0-7.0 % Eosinophils # (Auto) 0.1 0-0.8 10 ^3/uL Basophils # (Auto) 0.3 H 0-0.2 10 ^3/uL Nucleated Red Blood Cells 0.1 % Microcytosis Slight Hypochromasia (manual) Slight Poikilocytosis (manual) Slight Test 01/04/24 03:10 01/03/24 06:59 01/03/24 05:00 01/02/24 03:29 Range/Units Triglycerides Level 113 < 150 mg/dL Blood Gas Spontaneous Rate 16 Specimen Drawn By Alexei bell Tear Drop Cells Few B-Type Natriuretic Peptide 363.90 0-100 pg/mL Target Cells Few Test 01/01/24 10:37 01/01/24 03:10 12/27/23 03:10 12/26/23 12:45 Range/Units Blood Gas Pressure Support 8 Sickle Cells Stomatocytes Few Vitamin D 25-Hydroxy 37.7 30.0-100 ng/mL Parathyroid Hormone (Intact) 52.1 18.4-80.1 pg/mL Test 12/26/23 08:06 12/26/23 01:30 12/25/23 20:00 12/19/23 16:03 Range/Units Blood Gas Critical Value Read Back Yes Blood Gas Notified Whom Dr. nair Blood Gas Notified Time [id number] Blood Gas Notified By Alexei bell Urine Color Yellow Yellow Urine Clarity Turbid H Clear Urine pH 5.5 5.0-9.0 Urine Specific [place] 1.025 1.001-1.035 Urine Protein 1+ H Negative Urine Ketones Trace Negative Urine Blood 3+ H Negative /uL Urine Nitrite Negative Negative Urine Bilirubin Negative Negative Urine Urobilinogen Normal Negative mg/dL Urine Leukocyte Esterase Negative Negative /uL Urine RBC 87 0 - 4 /hpf Urine WBC 6 0 - 5 /hpf Urine Squamous Epithelial Cells None seen <5 /hpf Urine Bacteria Few H None Seen /hpf Urine Hyaline Casts Mod 0 - 2 /lpf Urine Granular Casts Few 0 /lpf Urine Mucus Few None Seen Urine Yeast (Budding) Occasional None Seen /hpf Urine Creatinine 64.14 30.0-125.0 mg/dL Urine Protein/Creatinine Ratio 1.97 Urine Sodium 35 L 40-220 mmol/L Urine Glucose Normal Normal mg/dL Urine Total Protein 126.3 H 1-14 mg/dL Activated Partial Thromboplast Time 34.0 24.5-34.5 SEC Troponin I High Sensitivity 42 *H </=34 ng/L Test 12/19/23 10:40 12/18/23 13:03 12/18/23 12:28 12/18/23 08:21 Range/Units CA 19-9 Antigen 1546 H 0-35 U/mL Stool Occult Blood Positive Negative Stool Occult Blood Sample #3 Negative SARS-CoV-2 Antigen (Rapid) Negative NEGATIVE Erythrocyte Sedimentation Rate 75 H 0-20 mm/hr Hemoglobin A1c 5.1 <5.7 % A1C Iron Level 25 L 50-170 ug/dL Total Iron Binding Capacity 323 250-425 ug/dL Percent Iron Saturation 7.7 L 15-50 % Creatine Kinase 409 H 34-145 U/L C-Reactive Protein High Sensitivity 10.15 H <1.0 mg/dL Tumor Marker Alpha Fetoprotein 2.0 0.0-9.2 ng/mL Carcinoembryonic Antigen 326.14 <=5.0 ng/mL Vitamin B12 Level 2343 H 211-911 pg/mL Folic Acid 6.56 >5.38 ng/mL Thyroid Stimulating Hormone (TSH) 2.84 0.55-4.78 uIU/mL Plasma/Serum Blood Alcohol < 3.0 <10 mg/dL Hepatitis A IgM Antibody Negative Hepatitis A Antibody Total Positive H Negative Hepatitis B Surface Antigen Negative Negative Hepatitis B Surface Antibody Negative Negative Hepatitis B Core Total Antibody Negative Negative Hepatitis B Core IgM Antibody Negative Hepatitis C Antibody Negative Negative Test 12/18/23 08:02 Range/Units Urine Opiates Screen Neg NEGATIVE Urine Fentanyl Screen Neg NEGATIVE Urine Barbiturates Screen Neg NEGATIVE Urine Phencyclidine Screen Neg NEGATIVE Urine Amphetamines Screen Neg NEGATIVE Urine Benzodiazepines Screen Neg NEGATIVE Urine Cocaine Screen Neg NEGATIVE Urine Cannabinoids Screen Neg NEGATIVE Microbiology Date/Time Source Procedure Growth Status 12/30/23 20:08 Sputum Expectorated Sputum Gram Stain - Final Complete 12/30/23 20:08 Respiratory Culture - Final Enterobacter cloacae Complete 12/30/23 15:35 Blood Blood Culture - Final NO GROWTH AFTER 5 DAYS OF INCUBATION. Complete 12/30/23 12:00 Voided Urine Urine Culture - Final Complete 12/25/23 16:11 Nose MRSA Screen - Final Complete 12/18/23 13:03 Stool Stool Culture - Final Complete 12/18/23 13:03 Stool Shiga Toxin I & II - Final Complete Assessment Patient is a 64-year-old female presents to the hospital with: septic shock vs distributive shock leucocytosis ? stress induced vs sepsis Ventilator associated Pneumonia : [place] large bowel obstruction s/p colectomy s/p end to end anastomosis 12/24 possible colon cancer with mets ascites: malignant vs post surgical vs infection Liver mets acute hypoxic respiratory failure on mechanical ventilation Recommendations: On IV Vancomycin and Meropenem on levaphed check MRSA NAAT follow blood cultures oncology is on board ascites, consider paracentesis and send fluid for analysis and cultures prognosis gaurded Crit time 45 minutes, Thank you for the consult and for giving an opportunity to take care of this patient. Plan discussed with: Spouse, Other JASPREET ALVAREZ MD Jan 06, 2024 15:18
--- NOTE | 2024-01-06 21:07 | DVHPN2 ---
Progress Note - Dictate Date Seen: Jan 06, 2024 Medical Necessity Reason Pt with a Central, PICC or Fol: Yes The following are medically ne: PICC Line, Davies Catheter Reason for davies catheter: Strict I&O Subjective Patient seen and examined at bedside. Sedated, intubated on mechanical ventilator. Overnight events reviewed. vital signs Vital Sign Date Time Temp Pulse Resp B/P (MAP) Pulse Ox O2 Delivery O2 Flow Rate FiO2 01/06/24 20:10 108 23 123/55 (77) 97 30 01/06/24 18:45 99.9 211.8 01/06/24 18:10 Mechanical Ventilator Total Intake and Output 01/05/24 01/05/24 01/06/24 15:00 23:00 07:00 Intake Total 567.001 ml 473.190 ml 592.504 ml Output Total 800 ml 1725 ml Balance 567.001 ml -326.810 ml -1132.496 ml medications Current Medications Medications Dose Ordered Sig/Saige Route Start Time Stop Time Status Last Admin Dose Admin Sodium Chloride 10 ml Q8HR IV 12/17/23 22:00 01/06/24 14:15 10 ML Midazolam HCl 50 ml @ 1 mls/hr Q24H IV 12/25/23 12:30 01/06/24 14:15 4 MLS/HR Nitroglycerin 0.4 mg Q5MINP PRN SL 12/25/23 16:00 Vasopressin 20 units/Sodium Chloride 100 ml @ 9 mls/hr Q11H7M IV 12/25/23 17:15 12/29/23 11:50 9 MLS/HR Phenylephrine HCl 250 ml @ 30 mls/hr Q8H20M IV 12/25/23 17:15 12/26/23 00:42 48.75 MLS/HR Epinephrine HCl 250 ml @ 7.5 mls/hr Q24H IV 12/25/23 18:30 Pantoprazole Sodium 40 mg DAILY IV 12/26/23 10:00 01/06/24 10:12 40 MG Ipratropium Brooks 0.5 mg Q6HR NEB 12/27/23 18:00 Cancel Norepinephrine Bitartrate 32 mg/ Sodium Chloride 250 ml @ 0.938 mls/ hr Q24H IV 12/27/23 14:45 01/05/24 20:22 4.688 MLS/HR Amino Acids 0 ml @ 0 mls/hr PER PHARMACY IV 12/28/23 12:00 Diagnostic Test (Pha) 1 strip Q6HR 12/28/23 18:00 01/06/24 17:36 1 STRIP Insulin Human Regular FOLLOW SLIDING SCALE Q6HR SC 12/28/23 18:00 01/04/24 17:28 2 UNITS Dextrose 50 ml UD IV 12/28/23 13:00 Insulin Glargine 15 units DAILY@1000 SC 12/29/23 12:15 01/06/24 11:35 15 UNITS Enoxaparin Sodium 40 mg DAILY SC 12/29/23 12:15 01/06/24 17:36 40 MG Vancomycin HCl 0 ml @ 0 mls/hr UD IV 01/01/24 12:15 Vancomycin HCl 200 ml @ 200 mls/hr Q14H IV 01/02/24 05:00 Hold 01/05/24 02:30 200 MLS/HR Dexmedetomidine HCl 400 mcg/ Dextrose 100 ml @ 4.065 mls/ hr Q24H IV 01/02/24 08:30 01/03/24 02:27 4.065 MLS/HR Meropenem 50 ml @ 17 mls/hr Q8HR IV 01/03/24 22:00 01/06/24 14:16 17 MLS/HR Fentanyl Citrate 250 ml @ 2.5 mls/hr Q24H IV 01/03/24 17:15 01/06/24 11:41 15 MLS/HR Fat Emulsion Intravenous 50 ml/ Potassium Acetate 30 meq/ Multivitamins 10 ml/Amino Acids/ Dextrose 1,025 ml @ 42 mls/hr [id number] IV 01/05/24 22:00 01/06/24 21:59 01/05/24 21:40 42 MLS/HR Furosemide 40 mg TID IV 01/05/24 14:00 01/06/24 14:15 40 MG Sodium Chloride 10 ml QSHIFT@10,22 IV 01/05/24 22:00 01/06/24 10:13 10 ML Fat Emulsion Intravenous 50 ml/ Potassium Acetate 40 meq/Magnesium Sulfate 4 meq/ Multivitamins 10 ml/Amino Acids/ Dextrose/Purified Water 1,031 ml @ 42 mls/hr [id number] IV 01/06/24 22:00 01/07/24 21:59 objective Gen.: Patient lying in bed in medical ICU. Sedated, intubated on mechanical ventilator. Head: Normocephalic, atraumatic. Eyes: PERRLA. Ears: Normal external anatomy. Throat: Endotracheal tube and orogastric tube in place. Neck: Supple, trachea midline. Chest: Transmitted breath sounds bilaterally. Decreased air entry bilaterally. No wheezing. Bibasilar crackles. Cardiovascular: Positive S1, positive S2. Regular rate and rhythm. Abdomen: Positive bowel sounds in all 4 quadrants. Soft, nontender, nondistended. : Davies in place. Normal external genitalia. Rectal: Deferred. Skin: Warm, dry. Intact. Extremities: 2+ radial pulses bilaterally. No lower extremity edema. Neuro: Sedated. laboratory and microbiology Laboratory Tests 01/06/24 05:00 01/06/24 03:50 Test 01/06/24 05:00 Range/Units Serum Glucose 133 H 74-106 mg/dL Assessment/Plan Impression: Acute hypoxic respiratory failure On mechanical ventilator Sepsis due to liver abscess Possible MARCIANO in liver Chronic systolic heart failure CAD s/p PTCA with multiple stents and s/p defibrillator Distributive shock Metastatic colon cancer status post left colectomy Iron deficiency anemia Acute kidney injury due to shock Metabolic acidosis Lactic acidosis Events: Remains on vent support Currently on assist control with respiratory rate of 16, tidal volume 350, PEEP of 5, FiO2 of 30%. Taper FiO2 as tolerated Sedated on Fentanyl. On pressors for hemodynamic support. On Levophed at 6 micrograms/minute Titrate to keep MAP above 65 mmHg/SBP above 90 mmHg. Improving pressor requirements Continue antibiotics - meropenem Diurese w/ Lasix as tolerated Monitor renal function TPN for nutritional support S/p PICC, right IJ removed. Plan for drainage by IR. ABG pending. Patient is s/p exploratory laparotomy S/p therapeutic bronchoscopy with RML BAL on 01/03 Labs and imaging reviewed. Rest of plan as noted below. Plan: s/p intubation on mechanical ventilator CXR image and report reviewed. Devices in place. Hypoinflation. ABG reviewed. Acidemia due to metabolic acidosis Assist control mode with respiratory rate of 16, tidal volume 350, PEEP of 5, FiO2 of 30%. Titrate FIO2 to keep O2 saturation above 92%. VAP bundle Daily ABG and CXR while intubated. Sedate for ventilatory synchrony On pressors for hemodynamic support. Titrate to keep MAP above 65 mmHg/SBP above 90 mmHg. Continue antibiotics. F/u cultures. Blood cultures no growth after 5 days. Sputum culture notable for Enterobacter cloacae. Monitor renal function Monitor ins/outs Diurese with Lasix BID Monitor electrolytes. Supplement as necessary. Monitor lactic acid due to lactic acidosis. Nutritional support. Accucheks, ISS. GI/DVT prophylaxis. Condition: Critical Prognosis: Poor given multiple comorbidities. Rest of plan per hospitalist and other consultants. A total of 35 minutes of critical care time was spent reviewing the patient record, examining the patient, making a diagnostic and therapeutic plan, discussing this plan with the medical personnel, following up on diagnostic studies and following the patient for clinical stability excluding any and all procedures. At least 50% of this time was spent in direct, [id number] contact. Thank you Dr. Heath for allowing me to participate in this patient's care. Further recommendations will depend on patient's clinical course. Please do not hesitate to contact me if you have any questions or concerns. This medical document was created using an electronic medical record system with [employer] dictation system. Although this document has been carefully reviewed, there may still be some phonetic and typographical errors. These areas are purely typographical due to imperfections of the software programs, and do not reflect any compromise in the patient's medical care. Dietary Evaluation Review Comments: 1) Advance pt diet when medically feasible to a Cardiac diet 2) Continue current plan of care Expected Outcomes/Goals: 1) F/U in 3-5 days Plan discussed with: Other (WALKER Tavera) Critical Care Time(min): 35 DAYSI DYKES MD Jan 06, 2024 21:07
[2024-01-06] MEDS: TPN PER PHARMACY IV NR (22:40)
[2024-01-07] VITALS (98 sets, daily range): BP systolic 77–123; BP diastolic 42–78; PULSE 82–110; RESP 11–24; TEMP 98.6–100.9; O2SAT 92–100
[2024-01-07 04:17] LABS: Basophils # (auto) 0.3 10 ^3/uL (0-0.2); Basophils % (auto) 1.1 % (0.0-2.0); Eosinophils # (auto) 0.1 10 ^3/uL (0-0.8); Eosinophils % (auto) 0.4 % (0.0-7.0); Hemoglobin 8.4 g/dL (12.2-16.2); Lymphocytes # (auto) 0.9 10 ^3/uL (0.4-5.4); Lymphocytes % (auto) 3.8 % (10.0-50.0); Mean Corpuscular Hemoglobin 24.9 pg (28.0-32.0); Mean Corpuscular Hgb Conc. 30.1 g/dL (32.0-36.0); Mean Corpuscular Volume 82.9 fL (80.0-100.0); Monocytes # (auto) 1.2 10 ^3/uL (0-1.3); Monocytes % (auto) 5.5 % (0.0-12.0); Neutrophils # (auto) 20.1 10 ^3/uL (1.6-8.6); Neutrophils % (auto) 89.2 % (37.0-80.0); Platelet Count (auto) 306 10^3/uL (140-450); Red Blood Cells 3.37 10^6/uL (4.0-5.20); Red Cell Distribution Width 26.1 % (11.8-14.3); White Blood Cell 22.6 10^3/uL (4.4-10.8)
--- NOTE | 2024-01-07 04:55 | DVH ---
CHEST RADIOGRAPH Indication: ET PLACEMENT Technique: Single frontal view of the chest was obtained Comparison: XY CHEST PORTABLE on DOS: 01/06/24 FINDINGS: Lines and Tubes: The endotracheal tube terminates 4.8 cm above the nany. AICD is unchanged. Enteri c tube courses below the left hemidiaphragm and extends to the region of the stomach. Left upper extr emity PICC is present however the tip is obscured by the AICD leads. Lungs: No focal consolidation. Pleura: No effusion. No pneumothorax. Cardiomediastinal contours: Unremarkable Bones: No acute osseous abnormality. Multiple rounded densities projecting over the bilateral humeral heads. IMPRESSION: 1. Stable position of the support lines and tubes. 2. No acute cardiopulmonary abnormality.
[2024-01-07 05:40] LABS: Chloride 111 mmol/L (98-107); Potassium 3.4 mmol/L (3.5-5.1); Sodium 148 mmol/L (136-145)
[2024-01-07 05:43] LABS: Anion Gap 11 (5-15); Calcium 8.5 mg/dL (8.7-10.4); Carbon Dioxide 26 mmol/L (20-31)
[2024-01-07 05:48] LABS: BUN/Creatinine Ratio 76.8 (10.0-20.0); Blood Urea Nitrogen 63 mg/dL (9-23); Glucose 101 mg/dL (74-106)
[2024-01-07 05:49] LABS: Alkaline Phosphatase 301 U/L (46-116); Magnesium 2.2 mg/dL (1.6-2.6)
[2024-01-07 05:50] LABS: Alanine Aminotransferase 64 U/L (7-40); Albumin 2.6 g/dL (3.2-4.8); Aspartate Aminotransferase 199 U/L (13-40); Phosphorus 4.8 mg/dL (2.4-5.1)
[2024-01-07 05:51] LABS: Bilirubin, Total 3.5 mg/dL (0.2-1.0); Total Protein 5.6 g/dL (5.7-8.2)
[2024-01-07] MEDS: POTASSIUM CHL 20MEQ/100ML 100 ML IV ONE (08:40)
--- NOTE | 2024-01-07 09:36 | DVHPN2 ---
Progress Note - Dictate Date Seen: Jan 07, 2024 Medical Necessity Reason Pt with a Central, PICC or Fol: Yes The following are medically ne: PICC Line, Davies Catheter Reason for davies catheter: Strict I&O Subjective Patient was seen and examined at bedside. She is sedated, intubated on mechanical ventilator. Patient has a pelvic abscess drainage and her abdominal wound has increased weeping. Patient's blood pressure was in the 70's systolic. Antibiotic status: Vancomycin HCl 200 ml @ 200 mls/hr - [Started 12/31 - Ongoing] Meropenem 50 ml @ 17 mls/hr - [Started - 01/02 - Ongoing] vital signs Vital Sign Date Time Temp Pulse Resp B/P (MAP) Pulse Ox O2 Delivery O2 Flow Rate FiO2 01/07/24 06:15 99.1 94 17 98/56 (70) 210.4 01/07/24 06:00 98 01/07/24 06:00 35 01/07/24 06:00 Mechanical Ventilator+ Total Intake and Output 01/06/24 01/06/24 01/07/24 15:00 23:00 07:00 Intake Total 565.064 ml 402.938 ml 539 ml Output Total 1225 ml 390 ml Balance 565.064 ml -822.062 ml 149 ml medications Current Medications Medications Dose Ordered Sig/Saige Route Start Time Stop Time Status Last Admin Dose Admin Sodium Chloride 10 ml Q8HR IV 12/17/23 22:00 01/07/24 05:27 10 ML Midazolam HCl 50 ml @ 1 mls/hr Q24H IV 12/25/23 12:30 01/07/24 00:09 5 MLS/HR Nitroglycerin 0.4 mg Q5MINP PRN SL 12/25/23 16:00 Vasopressin 20 units/Sodium Chloride 100 ml @ 9 mls/hr Q11H7M IV 12/25/23 17:15 12/29/23 11:50 9 MLS/HR Phenylephrine HCl 250 ml @ 30 mls/hr Q8H20M IV 12/25/23 17:15 12/26/23 00:42 48.75 MLS/HR Epinephrine HCl 250 ml @ 7.5 mls/hr Q24H IV 12/25/23 18:30 Pantoprazole Sodium 40 mg DAILY IV 12/26/23 10:00 01/06/24 10:12 40 MG Ipratropium [place] 0.5 mg Q6HR NEB 12/27/23 18:00 Cancel Norepinephrine Bitartrate 32 mg/ Sodium Chloride 250 ml @ 0.938 mls/ hr Q24H IV 12/27/23 14:45 01/07/24 03:38 0.938 MLS/HR Amino Acids 0 ml @ 0 mls/hr PER PHARMACY IV 12/28/23 12:00 Diagnostic Test (Pha) 1 strip Q6HR 12/28/23 18:00 01/07/24 06:23 1 STRIP Insulin Human Regular FOLLOW SLIDING SCALE Q6HR SC 12/28/23 18:00 01/04/24 17:28 2 UNITS Dextrose 50 ml UD IV 12/28/23 13:00 Insulin Glargine 15 units DAILY@1000 SC 12/29/23 12:15 01/06/24 11:35 15 UNITS Enoxaparin Sodium 40 mg DAILY SC 12/29/23 12:15 01/06/24 17:36 40 MG Vancomycin HCl 0 ml @ 0 mls/hr UD IV 01/01/24 12:15 Vancomycin HCl 200 ml @ 200 mls/hr Q14H IV 01/02/24 05:00 Hold 01/05/24 02:30 200 MLS/HR Dexmedetomidine HCl 400 mcg/ Dextrose 100 ml @ 4.065 mls/ hr Q24H IV 01/02/24 08:30 01/03/24 02:27 4.065 MLS/HR Meropenem 50 ml @ 17 mls/hr Q8HR IV 01/03/24 22:00 01/07/24 05:27 17 MLS/HR Fentanyl Citrate 250 ml @ 2.5 mls/hr Q24H IV 01/03/24 17:15 01/07/24 00:34 20 MLS/HR Furosemide 40 mg TID IV 01/05/24 14:00 01/07/24 05:27 40 MG Sodium Chloride 10 ml QSHIFT@10,22 IV 01/05/24 22:00 01/06/24 22:55 10 ML Fat Emulsion Intravenous 50 ml/ Potassium Acetate 40 meq/Magnesium Sulfate 4 meq/ Multivitamins 10 ml/Amino Acids/ Dextrose/Purified Water 1,031 ml @ 42 mls/hr [id number] IV 01/06/24 22:00 01/07/24 21:59 01/06/24 22:40 42 MLS/HR objective General.: Patient lying in bed in medical ICU. Sedated, intubated on mechanical ventilator. Head: Normocephalic, atraumatic. Eyes: PERRLA. Ears: Normal external anatomy. Throat: Endotracheal tube and orogastric tube in place. Neck: Supple, trachea midline. Chest: Transmitted breath sounds bilaterally. Decreased air entry bilaterally. No wheezing. Bibasilar crackles. Cardiovascular: Positive S1, positive S2. Regular rate and rhythm. Abdomen: Positive bowel sounds in all 4 quadrants. Soft, nontender, nondistended. : Davies in place. Normal external genitalia. Rectal: Deferred. Skin: Warm, dry. Intact. Extremities: 2+ radial pulses bilaterally. No lower extremity edema. Neuro: Sedated. laboratory and microbiology Laboratory Tests 01/07/24 05:15 01/07/24 04:00 Test 01/07/24 05:15 Range/Units Serum Glucose 101 74-106 mg/dL Assessment/Plan Patient is a 64-year-old female presents to the hospital with: septic shock vs distributive shock leucocytosis ? stress induced vs sepsis Ventilator associated Pneumonia : [place] large bowel obstruction s/p colectomy s/p end to end anastomosis 12/24 possible colon cancer with mets pelvic ascites: malignant vs post surgical vs infection Liver mets acute hypoxic respiratory failure on mechanical ventilation Recommendations: On IV Vancomycin and Meropenem on levaphed check MRSA NAAT neg follow blood cultures: preli, no growth oncology is on board, plan to do outpt chemo pelvic ascites, plan for IR guided paracentesis and send fluid for analysis and cultures prognosis gaurded Crit time 35 minutes, discussed with spouse at bedside Thank you for the consult and for giving an opportunity to take care of this patient. Dietary Evaluation Review Comments: 1) Advance pt diet when medically feasible to a Cardiac diet 2) Continue current plan of care Expected Outcomes/Goals: 1) F/U in 3-5 days Plan discussed with: Spouse JASPREET ALVAREZ MD Jan 07, 2024 09:36
--- NOTE | 2024-01-07 11:18 | DVHPN2 ---
Subjective The patient seen and examined at bedside. No change overnight. The patient remained intubated. Reviewed: Care Plan, H&P, Labs, Medications, Previous Orders, Radiology Changes from previous H/P or p: No Changes Eyes: No Pain, No Vision change, No Conjunctivae inflammation, No Eyelid inflammation, No Other, No Redness ENT: No Ear pain, No Ear discharge, No Nose pain, No Nose discharge, No Nose congestion, No Mouth pain, No Mouth swelling, No Throat pain, No Throat swelling, No Other Cardiovascular: No Chest Pain, No Palpitations, No Orthopnea, No Paroxysmal Noc. Dyspnea, No Edema, No Lt Headedness, No Other Respiratory: Cough, Dry, Shortness of breath Gastrointestinal: Nausea; No Vomiting; Abdominal Pain; No Diarrhea, No Constipation, No Melena, No Hematochezia, No Other Genitourinary: Dysuria; No Frequency, No Incontinence, No Hematuria, No Retention, No Other Musculoskeletal: No other, No neck pain, No shoulder pain, No arm pain, No back pain, No hand pain, No leg pain, No foot pain Skin: No Rash, No Lesions, No Jaundice, No Bruising, No Other Objective Vitals Vital Signs Date Time Temp Pulse Resp B/P (MAP) Pulse Ox O2 Delivery O2 Flow Rate FiO2 01/07/24 10:01 95 18 99/46 (63) 95 30 01/07/24 10:00 Mechanical Ventilator+ 01/07/24 09:45 99.1 210.4 Intake/Output Intake and Output 01/07/24 07:00 Intake Total 1574.940 ml Output Total 1615 ml Balance -40.060 ml Intake Oral 0 ml IV Total 1574.940 ml Output Urine Total 1590 ml Gastric Drainage Total 25 ml General Appearance: Other (sedated and intubated) HEENT: PERRLA Lungs: Clear to auscultation Cardiovascular: Regular rate, Normal S1, Normal S2 Abdomen: Soft, Other (noo bowel sounds) Extremities: Other (edema) Neuro: Other (sedated and ventilated/has cough and gag reflex) Medications Current Medications Medications Dose Ordered Sig/Saige Route Start Time Stop Time Status Last Admin Dose Admin Sodium Chloride 10 ml Q8HR IV 12/17/23 22:00 01/07/24 05:27 10 ML Midazolam HCl 50 ml @ 1 mls/hr Q24H IV 12/25/23 12:30 01/07/24 00:09 5 MLS/HR Nitroglycerin 0.4 mg Q5MINP PRN SL 12/25/23 16:00 Vasopressin 20 units/Sodium Chloride 100 ml @ 9 mls/hr Q11H7M IV 12/25/23 17:15 12/29/23 11:50 9 MLS/HR Phenylephrine HCl 250 ml @ 30 mls/hr Q8H20M IV 12/25/23 17:15 12/26/23 00:42 48.75 MLS/HR Epinephrine HCl 250 ml @ 7.5 mls/hr Q24H IV 12/25/23 18:30 Pantoprazole Sodium 40 mg DAILY IV 12/26/23 10:00 01/07/24 09:14 40 MG Ipratropium [place] 0.5 mg Q6HR NEB 12/27/23 18:00 Cancel Norepinephrine Bitartrate 32 mg/ Sodium Chloride 250 ml @ 0.938 mls/ hr Q24H IV 12/27/23 14:45 01/07/24 03:38 0.938 MLS/HR Amino Acids 0 ml @ 0 mls/hr PER PHARMACY IV 12/28/23 12:00 Diagnostic Test (Pha) 1 strip Q6HR 12/28/23 18:00 01/07/24 06:23 1 STRIP Insulin Human Regular FOLLOW SLIDING SCALE Q6HR SC 12/28/23 18:00 01/04/24 17:28 2 UNITS Dextrose 50 ml UD IV 12/28/23 13:00 Insulin Glargine 15 units DAILY@1000 SC 12/29/23 12:15 01/07/24 09:20 15 UNITS Enoxaparin Sodium 40 mg DAILY SC 12/29/23 12:15 01/07/24 09:14 40 MG Vancomycin HCl 0 ml @ 0 mls/hr UD IV 01/01/24 12:15 Dexmedetomidine HCl 400 mcg/ Dextrose 100 ml @ 4.065 mls/ hr Q24H IV 01/02/24 08:30 01/03/24 02:27 4.065 MLS/HR Meropenem 50 ml @ 17 mls/hr Q8HR IV 01/03/24 22:00 01/07/24 05:27 17 MLS/HR Fentanyl Citrate 250 ml @ 2.5 mls/hr Q24H IV 01/03/24 17:15 01/07/24 00:34 20 MLS/HR Furosemide 40 mg TID IV 01/05/24 14:00 01/07/24 05:27 40 MG Sodium Chloride 10 ml QSHIFT@10,22 IV 01/05/24 22:00 01/07/24 09:15 10 ML Fat Emulsion Intravenous 50 ml/ Potassium Acetate 40 meq/Magnesium Sulfate 4 meq/ Multivitamins 10 ml/Amino Acids/ Dextrose/Purified Water 1,031 ml @ 42 mls/hr [id number] IV 01/06/24 22:00 01/07/24 21:59 01/06/24 22:40 42 MLS/HR Fat Emulsion Intravenous 50 ml/ Potassium Acetate 50 meq/Magnesium Sulfate 4 meq/ Multivitamins 10 ml/Amino Acids/ Dextrose/Purified Water 1,086 ml @ 45 mls/hr Q24H8M IV 01/07/24 22:00 01/08/24 21:59 Laboratory Results Laboratory Tests 01/07/24 04:00 01/07/24 05:15 Chemistry Test 01/07/24 05:15 Albumin 2.6 g/dL (3.2-4.8) L Calcium Level 8.5 mg/dL (8.7-10.4) L Magnesium Level 2.2 mg/dL (1.6-2.6) Phosphorus Level 4.8 mg/dL (2.4-5.1) Total Protein 5.6 g/dL (5.7-8.2) L LFT Test 01/07/24 05:15 Alanine Aminotransferase (ALT) 64 U/L (7-40) H Alkaline Phosphatase 301 U/L (46-116) H Aspartate Amino Transferase (AST) 199 U/L (13-40) H Total Bilirubin 3.5 mg/dL (0.2-1.0) H Urinalysis Test 12/26/23 01:30 Urine Color Yellow (Yellow) Urine Clarity Turbid (Clear) H Urine pH 5.5 (5.0-9.0) Urine Specific [place] 1.025 (1.001-1.035) Urine Protein 1+ (Negative) H Urine Ketones Trace (Negative) Urine Blood 3+ /uL (Negative) H Urine Nitrite Negative (Negative) Urine Bilirubin Negative (Negative) Urine Urobilinogen Normal mg/dL (Negative) Urine Leukocyte Esterase Negative /uL (Negative) Urine RBC 87 /hpf (0 - 4) Urine WBC 6 /hpf (0 - 5) Urine Squamous Epithelial Cells None seen /hpf (<5) Urine Bacteria Few /hpf (None Seen) H Urine Hyaline Casts Mod /lpf (0 - 2) Urine Granular Casts Few /lpf (0) Urine Mucus Few (None Seen) Urine Yeast (Budding) Occasional /hpf (None Urine Creatinine 64.14 mg/dL (30.0-125.0) Urine Protein/Creatinine Ratio 1.97 Urine Sodium 35 mmol/L (40-220) L Urine Glucose Normal mg/dL (Normal) Urine Total Protein 126.3 mg/dL (1-14) H Blood Gas Results Test 01/07/24 07:38 Arterial Blood pH 7.356 (7.350-7.450) FiO2 % 30.0 Microbiology Microbiology Date/Time Source Procedure Growth Status 01/06/24 14:50 Urine - [place] Urine Culture - Preliminary Resulted 12/30/23 20:08 Sputum Expectorated Sputum Gram Stain - Final Complete 12/30/23 20:08 Respiratory Culture - Final Enterobacter cloacae Complete 12/30/23 15:35 Blood Blood Culture - Final NO GROWTH AFTER 5 DAYS OF INCUBATION. Complete 12/25/23 16:11 Nose MRSA Screen - Final Complete 12/18/23 13:03 Stool Stool Culture - Final Complete 12/18/23 13:03 Stool Shiga Toxin I & II - Final Complete Labs and/or images reviewed: Labs reviewed by me Assessment/Plan Assessment/Plan Acute hypoxic respiratory failure, on mechanical ventilator did not tolerate cpap trial still with enormous secretions status post bronchoscopy. Sepsis due to liver abscess Chronic systolic heart failure CAD s/p PTCA with multiple stents and s/p defibrillator Distributive shock Metastatic colon cancer to liver status post left colectomy Iron deficiency anemia Acute kidney injury due to shock Metabolic acidosis Lactic acidosis Continuing current management with ventilation support. Continuing with imipenem and vancomycin IV Blood culture and urine culture remained negative Discussed with regarding to IR procedure. He finally give consent to aspirate the fluid from the pelvic area. Waiting for Interventional radiologist. I also discussed with the regarding to potential PEG in [facility] long-term hospital placement. Continuing TPN. Continuing with vasopressor. Prognosis guarded Plan discussed with: Spouse My Orders Orders - JAVIER ANNE MD Procedure Category Date Status Time Urine Bacterial TONYA 01/06/24 In Process Culture 16:00 Blood Culture TONYA 01/06/24 In Process 16:30 * Infectious [place]- CONS 01/06/24 Transmitted [place] 13:45 Chest Portable XY 01/07/24 Resulted 04:00 Abg W/ Co-Ox RT 01/07/24 Logged 06:00 * Wound Consult CONS 01/06/24 Transmitted Date of Service: Jan 07, 2024 Billing Provider: JAIVER ANNE MD Common Visit Codes: [id number] INP/OBS CARE(HIGH) JAVIER ANNE MD Jan 07, 2024 11:18
[2024-01-07] MEDS: VANCOMYCIN 500 MG in D5W 5% 100 ML IV ONE (12:00)
--- NOTE | 2024-01-07 13:26 | DVHPN2 ---
Progress Note Date Seen: Jan 07, 2024 Medical Necessity Reason Pt with a Central, PICC or Fol: Yes The following are medically ne: PICC Line, Daveis Catheter Reason for davies catheter: Strict I&O Objective vital signs Vital Sign Date Time Temp Pulse Resp B/P (MAP) Pulse Ox O2 Delivery O2 Flow Rate FiO2 01/07/24 13:15 98.8 87 16 96/55 (69) 97 209.8 01/07/24 12:06 30 01/07/24 12:00 Mechanical Ventilator+ Total Intake and Output 01/06/24 01/06/24 01/07/24 15:00 23:00 07:00 Intake Total 565.064 ml 402.938 ml 606.938 ml Output Total 1225 ml 390 ml Balance 565.064 ml -822.062 ml 216.938 ml medications Current Medications Medications Dose Ordered Sig/Saige Route Start Time Stop Time Status Last Admin Dose Admin Sodium Chloride 10 ml Q8HR IV 12/17/23 22:00 01/07/24 05:27 10 ML Midazolam HCl 50 ml @ 1 mls/hr Q24H IV 12/25/23 12:30 01/07/24 00:09 5 MLS/HR Nitroglycerin 0.4 mg Q5MINP PRN SL 12/25/23 16:00 Vasopressin 20 units/Sodium Chloride 100 ml @ 9 mls/hr Q11H7M IV 12/25/23 17:15 12/29/23 11:50 9 MLS/HR Phenylephrine HCl 250 ml @ 30 mls/hr Q8H20M IV 12/25/23 17:15 12/26/23 00:42 48.75 MLS/HR Epinephrine HCl 250 ml @ 7.5 mls/hr Q24H IV 12/25/23 18:30 Pantoprazole Sodium 40 mg DAILY IV 12/26/23 10:00 01/07/24 09:14 40 MG Ipratropium [place] 0.5 mg Q6HR NEB 12/27/23 18:00 Cancel Norepinephrine Bitartrate 32 mg/ Sodium Chloride 250 ml @ 0.938 mls/ hr Q24H IV 12/27/23 14:45 01/07/24 03:38 0.938 MLS/HR Amino Acids 0 ml @ 0 mls/hr PER PHARMACY IV 12/28/23 12:00 Diagnostic Test (Pha) 1 strip Q6HR 12/28/23 18:00 01/07/24 12:17 1 STRIP Insulin Human Regular FOLLOW SLIDING SCALE Q6HR SC 12/28/23 18:00 01/04/24 17:28 2 UNITS Dextrose 50 ml UD IV 12/28/23 13:00 Insulin Glargine 15 units DAILY@1000 SC 12/29/23 12:15 01/07/24 09:20 15 UNITS Enoxaparin Sodium 40 mg DAILY SC 12/29/23 12:15 01/07/24 09:14 40 MG Vancomycin HCl 0 ml @ 0 mls/hr UD IV 01/01/24 12:15 Dexmedetomidine HCl 400 mcg/ Dextrose 100 ml @ 4.065 mls/ hr Q24H IV 01/02/24 08:30 01/03/24 02:27 4.065 MLS/HR Meropenem 50 ml @ 17 mls/hr Q8HR IV 01/03/24 22:00 01/07/24 05:27 17 MLS/HR Fentanyl Citrate 250 ml @ 2.5 mls/hr Q24H IV 01/03/24 17:15 01/07/24 12:41 22.5 MLS/HR Furosemide 40 mg TID IV 01/05/24 14:00 01/07/24 05:27 40 MG Sodium Chloride 10 ml QSHIFT@10,22 IV 01/05/24 22:00 01/07/24 09:15 10 ML Fat Emulsion Intravenous 50 ml/ Potassium Acetate 40 meq/Magnesium Sulfate 4 meq/ Multivitamins 10 ml/Amino Acids/ Dextrose/Purified Water 1,031 ml @ 42 mls/hr [id number] IV 01/06/24 22:00 01/07/24 21:59 01/06/24 22:40 42 MLS/HR Fat Emulsion Intravenous 50 ml/ Potassium Acetate 50 meq/Magnesium Sulfate 4 meq/ Multivitamins 10 ml/Amino Acids/ Dextrose/Purified Water 1,086 ml @ 45 mls/hr Q24H8M IV 01/07/24 22:00 01/08/24 21:59 laboratory and microbiology Laboratory Tests 01/07/24 05:15 01/07/24 04:00 Test 01/07/24 05:15 Range/Units Serum Glucose 101 74-106 mg/dL Problem List/Assessment/Plan Problem List/Assessment/Plan 01/06/[address] Aditi BUCKLEY, ABDOMEN APPEARS TO BE TENDER IN THE LEFT LOWER QUADRANT, WOUND IS CLEAN AND WELL APPROXIMATED, DRAINAGE FROM LOWER PORTION OF MIDLINE WOUND.AWAITING ir intervention 01/07/24 essentially unchanged, continues hypotensive with leukocytosis, abdomen "full", no BM or flatus reported, spoke to interventional radiologist, he will proceed with drainage of pelvic fluid collection via transgluteal approach Plan discussed with: Other Dietary Evaluation Review Comments: 1) Advance pt diet when medically feasible to a Cardiac diet 2) Continue current plan of care Expected Outcomes/Goals: 1) F/U in 3-5 days ASPEN EUBANKS MD Jan 07, 2024 13:25
[2024-01-07] MEDS: LIDOCAINE 2%HCL (LOCAL ANESTH.) INJ 10ml MDV ONE (13:57)
--- NOTE | 2024-01-07 15:29 | DVH ---
CT PELVIS WO CONTRAST, HISTORY: PELVIC ABSCESS DRAINAGE COMPARISON: CT CT ABD PELVIS W CON-ORAL IV on DOS: 01/05/24, CT HEAD WITHOUT CONTRAST on DOS: 01/01 PROCEDURE: Informed consent was obtained. The patient was placed prone on the CT scanner. IV sedation was administered since the patient was ventilated. The pelvic fluid collection was localized under C T scan and the overlying skin prepped with chlorhexidine which was allowed to dry and draped in the u sual sterile fashion and infiltrated with Xylocaine. Time out was performed. With CT guidance, a 19-g auge centesis needle catheter was advanced via gluteal approach into the fluid collection. Following aspiration of a small amount of fluid the needle/catheter jammed and was removed entirely. The fluid consistency appeared yellow and serous, not a purulent consistency. No immediate complication was not ed. DLP =3299 mGy-cm. SEDATION: Dr. Aditi Burgos was personally responsible for the administration of moderate sedation during the procedure performed, including the use of an independent trained observer who had no other duties during the procedure. The drugs utilized were IV fentanyl and versed (see nursing log for details). The total time of supervision by the attending physician was approximately 45 minutes. FINDINGS: Limited CT scan of through the pelvis demonstrates a moderate sized fluid collection in the low pelvis. Collection appears complex and irregularly defined. IMPRESSION: CT guided needle/catheter placement into the low pelvic fluid collection with aspiration of 1-2 mL of yellow serous fluid. No drain was placed. PLAN: Culture and sensitivity of the pelvic fluid, which during the procedure did not appear purulent . If it turns out to be an abscess, consider repeat drain placement.
--- NOTE | 2024-01-07 21:14 | DVHPN2 ---
Progress Note - Dictate Date Seen: Jan 07, 2024 Medical Necessity Reason Pt with a Central, PICC or Fol: Yes The following are medically ne: PICC Line, Davies Catheter Reason for davies catheter: Strict I&O Subjective Patient seen and examined at bedside. Sedated, intubated on mechanical ventilator. Overnight events reviewed. vital signs Vital Sign Date Time Temp Pulse Resp B/P (MAP) Pulse Ox O2 Delivery O2 Flow Rate FiO2 01/07/24 19:59 96 24 100/60 (73) 96 30 01/07/24 19:00 99.7 211.5 01/07/24 18:00 Mechanical Ventilator+ Total Intake and Output 01/06/24 01/06/24 01/07/24 15:00 23:00 07:00 Intake Total 565.064 ml 402.938 ml 606.938 ml Output Total 1225 ml 390 ml Balance 565.064 ml -822.062 ml 216.938 ml medications Current Medications Medications Dose Ordered Sig/Saige Route Start Time Stop Time Status Last Admin Dose Admin Sodium Chloride 10 ml Q8HR IV 12/17/23 22:00 01/07/24 13:43 10 ML Midazolam HCl 50 ml @ 1 mls/hr Q24H IV 12/25/23 12:30 01/07/24 13:58 6 MLS/HR Nitroglycerin 0.4 mg Q5MINP PRN SL 12/25/23 16:00 Vasopressin 20 units/Sodium Chloride 100 ml @ 9 mls/hr Q11H7M IV 12/25/23 17:15 12/29/23 11:50 9 MLS/HR Phenylephrine HCl 250 ml @ 30 mls/hr Q8H20M IV 12/25/23 17:15 12/26/23 00:42 48.75 MLS/HR Epinephrine HCl 250 ml @ 7.5 mls/hr Q24H IV 12/25/23 18:30 Pantoprazole Sodium 40 mg DAILY IV 12/26/23 10:00 01/07/24 09:14 40 MG Ipratropium [place] 0.5 mg Q6HR NEB 12/27/23 18:00 Cancel Norepinephrine Bitartrate 32 mg/ Sodium Chloride 250 ml @ 0.938 mls/ hr Q24H IV 12/27/23 14:45 01/07/24 03:38 0.938 MLS/HR Amino Acids 0 ml @ 0 mls/hr PER PHARMACY IV 12/28/23 12:00 Diagnostic Test (Pha) 1 strip Q6HR 12/28/23 18:00 01/07/24 17:57 1 STRIP Insulin Human Regular FOLLOW SLIDING SCALE Q6HR SC 12/28/23 18:00 01/04/24 17:28 2 UNITS Dextrose 50 ml UD IV 12/28/23 13:00 Insulin Glargine 15 units DAILY@1000 SC 12/29/23 12:15 01/07/24 09:20 15 UNITS Enoxaparin Sodium 40 mg DAILY SC 12/29/23 12:15 01/07/24 09:14 40 MG Vancomycin HCl 0 ml @ 0 mls/hr UD IV 01/01/24 12:15 Dexmedetomidine HCl 400 mcg/ Dextrose 100 ml @ 4.065 mls/ hr Q24H IV 01/02/24 08:30 01/03/24 02:27 4.065 MLS/HR Meropenem 50 ml @ 17 mls/hr Q8HR IV 01/03/24 22:00 01/07/24 13:47 17 MLS/HR Fentanyl Citrate 250 ml @ 2.5 mls/hr Q24H IV 01/03/24 17:15 01/07/24 12:41 22.5 MLS/HR Furosemide 40 mg TID IV 01/05/24 14:00 01/07/24 13:47 40 MG Sodium Chloride 10 ml QSHIFT@10,22 IV 01/05/24 22:00 01/07/24 09:15 10 ML Fat Emulsion Intravenous 50 ml/ Potassium Acetate 40 meq/Magnesium Sulfate 4 meq/ Multivitamins 10 ml/Amino Acids/ Dextrose/Purified Water 1,031 ml @ 42 mls/hr [id number] IV 01/06/24 22:00 01/07/24 21:59 01/06/24 22:40 42 MLS/HR Fat Emulsion Intravenous 50 ml/ Potassium Acetate 50 meq/Magnesium Sulfate 4 meq/ Multivitamins 10 ml/Amino Acids/ Dextrose/Purified Water 1,086 ml @ 45 mls/hr Q24H8M IV 01/07/24 22:00 01/08/24 21:59 objective Gen.: Patient lying in bed in medical ICU. Sedated, intubated on mechanical ventilator. Head: Normocephalic, atraumatic. Eyes: PERRLA. Ears: Normal external anatomy. Throat: Endotracheal tube and orogastric tube in place. Neck: Supple, trachea midline. Chest: Transmitted breath sounds bilaterally. Decreased air entry bilaterally. No wheezing. Bibasilar crackles. Cardiovascular: Positive S1, positive S2. Regular rate and rhythm. Abdomen: Positive bowel sounds in all 4 quadrants. Soft, nontender, nondistended. : Davies in place. Normal external genitalia. Rectal: Deferred. Skin: Warm, dry. Intact. Extremities: 2+ radial pulses bilaterally. No lower extremity edema. Neuro: Sedated. laboratory and microbiology Laboratory Tests 01/07/24 05:15 01/07/24 04:00 Test 01/07/24 05:15 Range/Units Serum Glucose 101 74-106 mg/dL Assessment/Plan Impression: Acute hypoxic respiratory failure On mechanical ventilator Sepsis due to liver abscess Possible MARCIANO in liver Chronic systolic heart failure CAD s/p PTCA with multiple stents and s/p defibrillator Distributive shock Metastatic colon cancer status post left colectomy Iron deficiency anemia Acute kidney injury due to shock Metabolic acidosis Lactic acidosis Events: Remains on vent support Currently on assist control with respiratory rate of 16, tidal volume 350, PEEP of 5, FiO2 of 30%. Taper FiO2 as tolerated Sedated on Fentanyl. On pressors for hemodynamic support. On Levophed at 2 micrograms/minute Titrate to keep MAP above 65 mmHg/SBP above 90 mmHg. Improved pressor requirements Continue antibiotics - meropenem Diurese w/ Lasix as tolerated Monitor renal function Potassium supplementation TPN for nutritional support Patient is s/p exploratory laparotomy S/p therapeutic bronchoscopy with RML BAL on 01/03 Labs and imaging reviewed. Rest of plan as noted below. Plan: s/p intubation on mechanical ventilator CXR image and report reviewed. Devices in place. Hypoinflation. ABG reviewed. Acidemia due to metabolic acidosis Assist control mode with respiratory rate of 16, tidal volume 350, PEEP of 5, FiO2 of 30%. Titrate FIO2 to keep O2 saturation above 92%. VAP bundle Daily ABG and CXR while intubated. Sedate for ventilatory synchrony On pressors for hemodynamic support. Titrate to keep MAP above 65 mmHg/SBP above 90 mmHg. Continue antibiotics. F/u cultures. Blood cultures no growth after 5 days. Sputum culture notable for Enterobacter cloacae. Monitor renal function Monitor ins/outs Diurese with Lasix BID Monitor electrolytes. Supplement as necessary. Monitor lactic acid due to lactic acidosis. Nutritional support. Accucheks, ISS. GI/DVT prophylaxis. Condition: Critical Prognosis: Poor given multiple comorbidities. Rest of plan per hospitalist and other consultants. A total of 35 minutes of critical care time was spent reviewing the patient record, examining the patient, making a diagnostic and therapeutic plan, discussing this plan with the medical personnel, following up on diagnostic studies and following the patient for clinical stability excluding any and all procedures. At least 50% of this time was spent in direct, [id number] contact. Thank you Dr. Heath for allowing me to participate in this patient's care. Further recommendations will depend on patient's clinical course. Please do not hesitate to contact me if you have any questions or concerns. This medical document was created using an electronic medical record system with [employer] dictation system. Although this document has been carefully reviewed, there may still be some phonetic and typographical errors. These areas are purely typographical due to imperfections of the software programs, and do not reflect any compromise in the patient's medical care. Dietary Evaluation Review Comments: 1) Advance pt diet when medically feasible to a Cardiac diet 2) Continue current plan of care Expected Outcomes/Goals: 1) F/U in 3-5 days Plan discussed with: Other (RN) Critical Care Time(min): 35 DAYSI DYKES MD Jan 07, 2024 21:14
[2024-01-07] MEDS: TPN PER PHARMACY IV NR (21:44)
[2024-01-08] VITALS (106 sets, daily range): BP systolic 83–125; BP diastolic 36–72; PULSE 66–115; RESP 13–29; TEMP 97–100.6; O2SAT 94–99
[2024-01-08 04:11] LABS: Alanine Aminotransferase 83 U/L (7-40); Albumin 2.7 g/dL (3.2-4.8); Alkaline Phosphatase 302 U/L (46-116); Anion Gap 11 (5-15); Aspartate Aminotransferase 256 U/L (13-40); Blood Urea Nitrogen 68 mg/dL (9-23); Calcium 8.6 mg/dL (8.7-10.4); Carbon Dioxide 27 mmol/L (20-31); Chloride 111 mmol/L (98-107); Glucose 110 mg/dL (74-106); Magnesium 2.2 mg/dL (1.6-2.6); Phosphorus 4.5 mg/dL (2.4-5.1); Potassium 3.8 mmol/L (3.5-5.1); Sodium 149 mmol/L (136-145)
[2024-01-08 04:12] LABS: Total Protein 5.8 g/dL (5.7-8.2)
[2024-01-08 07:31] LABS: Base Excess -1.1 mmol/L (-2.0-3.0)
--- NOTE | 2024-01-08 10:16 | DVHPN2 ---
Progress Note - Dictate Date Seen: Jan 08, 2024 Medical Necessity Reason Pt with a Central, PICC or Fol: Yes The following are medically ne: PICC Line, Davies Catheter Reason for davies catheter: Strict I&O Subjective Patient was seen and examined at bedside. She is sedated, intubated on mechanical ventilator. s/p pelvic fluid aspiration Antibiotic status: Vancomycin HCl 200 ml @ 200 mls/hr - [Started 12/31 - Ongoing] Meropenem 50 ml @ 17 mls/hr - [Started - 01/02 - Ongoing] vital signs Vital Sign Date Time Temp Pulse Resp B/P (MAP) Pulse Ox O2 Delivery O2 Flow Rate FiO2 01/08/24 09:45 99.0 82 15 88/50 (63) 210.2 01/08/24 08:27 97 30 01/08/24 08:00 Mechanical Ventilator+ Total Intake and Output 01/07/24 01/07/24 01/08/24 15:00 23:00 07:00 Intake Total 568.941 ml 591.625 ml 750.563 ml Output Total 200 ml 1225 ml Balance 568.941 ml 391.625 ml -474.437 ml medications Current Medications Medications Dose Ordered Sig/Saige Route Start Time Stop Time Status Last Admin Dose Admin Sodium Chloride 10 ml Q8HR IV 12/17/23 22:00 01/08/24 05:53 10 ML Midazolam HCl 50 ml @ 1 mls/hr Q24H IV 12/25/23 12:30 01/08/24 00:48 6 MLS/HR Nitroglycerin 0.4 mg Q5MINP PRN SL 12/25/23 16:00 Vasopressin 20 units/Sodium Chloride 100 ml @ 9 mls/hr Q11H7M IV 12/25/23 17:15 12/29/23 11:50 9 MLS/HR Phenylephrine HCl 250 ml @ 30 mls/hr Q8H20M IV 12/25/23 17:15 12/26/23 00:42 48.75 MLS/HR Epinephrine HCl 250 ml @ 7.5 mls/hr Q24H IV 12/25/23 18:30 Pantoprazole Sodium 40 mg DAILY IV 12/26/23 10:00 01/07/24 09:14 40 MG Ipratropium [place] 0.5 mg Q6HR NEB 12/27/23 18:00 Cancel Norepinephrine Bitartrate 32 mg/ Sodium Chloride 250 ml @ 0.938 mls/ hr Q24H IV 12/27/23 14:45 01/07/24 03:38 0.938 MLS/HR Amino Acids 0 ml @ 0 mls/hr PER PHARMACY IV 12/28/23 12:00 Diagnostic Test (Pha) 1 strip Q6HR 12/28/23 18:00 01/08/24 05:53 1 STRIP Insulin Human Regular FOLLOW SLIDING SCALE Q6HR SC 12/28/23 18:00 01/04/24 17:28 2 UNITS Dextrose 50 ml UD IV 12/28/23 13:00 Insulin Glargine 15 units DAILY@1000 SC 12/29/23 12:15 01/07/24 09:20 15 UNITS Enoxaparin Sodium 40 mg DAILY SC 12/29/23 12:15 01/07/24 09:14 40 MG Vancomycin HCl 0 ml @ 0 mls/hr UD IV 01/01/24 12:15 Dexmedetomidine HCl 400 mcg/ Dextrose 100 ml @ 4.065 mls/ hr Q24H IV 01/02/24 08:30 01/03/24 02:27 4.065 MLS/HR Meropenem 50 ml @ 17 mls/hr Q8HR IV 01/03/24 22:00 01/08/24 05:52 17 MLS/HR Fentanyl Citrate 250 ml @ 2.5 mls/hr Q24H IV 01/03/24 17:15 01/07/24 23:13 22.5 MLS/HR Furosemide 40 mg TID IV 01/05/24 14:00 01/08/24 05:52 40 MG Sodium Chloride 10 ml QSHIFT@10,22 IV 01/05/24 22:00 01/07/24 21:45 10 ML Fat Emulsion Intravenous 50 ml/ Potassium Acetate 50 meq/Magnesium Sulfate 4 meq/ Multivitamins 10 ml/Amino Acids/ Dextrose/Purified Water 1,086 ml @ 45 mls/hr Q24H8M IV 01/07/24 22:00 01/08/24 21:59 01/07/24 21:44 45 MLS/HR objective General.: Patient lying in bed in medical ICU. Sedated, intubated on mechanical ventilator. Head: Normocephalic, atraumatic. Eyes: PERRLA. Ears: Normal external anatomy. Throat: Endotracheal tube and orogastric tube in place. Neck: Supple, trachea midline. Chest: Transmitted breath sounds bilaterally. Decreased air entry bilaterally. No wheezing. Bibasilar crackles. Cardiovascular: Positive S1, positive S2. Regular rate and rhythm. Abdomen: Positive bowel sounds in all 4 quadrants. Soft, nontender, nondistended. : Davies in place. Normal external genitalia. Rectal: Deferred. Skin: Warm, dry. Intact. Extremities: 2+ radial pulses bilaterally. No lower extremity edema. Neuro: Sedated. laboratory and microbiology Laboratory Tests 01/08/24 03:46 01/07/24 04:00 Test 01/08/24 03:46 Range/Units Serum Glucose 110 H 74-106 mg/dL Assessment/Plan Patient is a 64-year-old female presents to the hospital with: septic shock vs distributive shock leucocytosis ? stress induced vs sepsis Ventilator associated Pneumonia : [place] large bowel obstruction s/p colectomy s/p end to end anastomosis 12/24 possible colon cancer with mets ascites: malignant vs post surgical vs infection Liver mets acute hypoxic respiratory failure on mechanical ventilation CHF anasarca Recommendations: On IV Vancomycin and Meropenem will dc vancomycin plan to continue meropenem until 01/09 on levaphed ( minimal) plevic fluid cultures are neg ( prelim) 01/05, Blood culture: No growth 01/05, Urine culture: No growth 01/04, Aerobic culture: No growth overall prognosis is very poor with mets, Crit time 35 minutes, discussed with primary Thank you for the consult and for giving an opportunity to take care of this patient. Dietary Evaluation Review Comments: 1) Advance pt diet when medically feasible to a Cardiac diet 2) Continue current plan of care Expected Outcomes/Goals: 1) F/U in 3-5 days Plan discussed with: JASPREET Galvan MD Jan 08, 2024 10:16
[2024-01-08] MEDS: VANCOMYCIN 500 MG in D5W 5% 100 ML IV ONE (10:31)
--- NOTE | 2024-01-08 11:33 | DVHPN2 ---
Progress Note Date Seen: Jan 08, 2024 Medical Necessity Reason Pt with a Central, PICC or Fol: Yes The following are medically ne: PICC Line, Davies Catheter Reason for davies catheter: Strict I&O Objective vital signs Vital Sign Date Time Temp Pulse Resp B/P (MAP) Pulse Ox O2 Delivery O2 Flow Rate FiO2 01/08/24 11:05 82 26 103/55 (71) 98 30 01/08/24 10:00 Mechanical Ventilator+ 01/08/24 09:45 99.0 210.2 Total Intake and Output 01/07/24 01/07/24 01/08/24 15:00 23:00 07:00 Intake Total 568.941 ml 591.625 ml 750.563 ml Output Total 200 ml 1225 ml Balance 568.941 ml 391.625 ml -474.437 ml medications Current Medications Medications Dose Ordered Sig/Saige Route Start Time Stop Time Status Last Admin Dose Admin Sodium Chloride 10 ml Q8HR IV 12/17/23 22:00 01/08/24 05:53 10 ML Midazolam HCl 50 ml @ 1 mls/hr Q24H IV 12/25/23 12:30 01/08/24 10:25 6 MLS/HR Nitroglycerin 0.4 mg Q5MINP PRN SL 12/25/23 16:00 Vasopressin 20 units/Sodium Chloride 100 ml @ 9 mls/hr Q11H7M IV 12/25/23 17:15 12/29/23 11:50 9 MLS/HR Phenylephrine HCl 250 ml @ 30 mls/hr Q8H20M IV 12/25/23 17:15 12/26/23 00:42 48.75 MLS/HR Epinephrine HCl 250 ml @ 7.5 mls/hr Q24H IV 12/25/23 18:30 Pantoprazole Sodium 40 mg DAILY IV 12/26/23 10:00 01/08/24 10:18 40 MG Ipratropium [place] 0.5 mg Q6HR NEB 12/27/23 18:00 Cancel Norepinephrine Bitartrate 32 mg/ Sodium Chloride 250 ml @ 0.938 mls/ hr Q24H IV 12/27/23 14:45 01/07/24 03:38 0.938 MLS/HR Amino Acids 0 ml @ 0 mls/hr PER PHARMACY IV 12/28/23 12:00 Diagnostic Test (Pha) 1 strip Q6HR 12/28/23 18:00 01/08/24 05:53 1 STRIP Insulin Human Regular FOLLOW SLIDING SCALE Q6HR SC 12/28/23 18:00 01/04/24 17:28 2 UNITS Dextrose 50 ml UD IV 12/28/23 13:00 Insulin Glargine 15 units DAILY@1000 SC 12/29/23 12:15 01/08/24 10:21 15 UNITS Enoxaparin Sodium 40 mg DAILY SC 12/29/23 12:15 01/08/24 10:18 40 MG Vancomycin HCl 0 ml @ 0 mls/hr UD IV 01/01/24 12:15 Dexmedetomidine HCl 400 mcg/ Dextrose 100 ml @ 4.065 mls/ hr Q24H IV 01/02/24 08:30 01/03/24 02:27 4.065 MLS/HR Meropenem 50 ml @ 17 mls/hr Q8HR IV 01/03/24 22:00 01/08/24 05:52 17 MLS/HR Fentanyl Citrate 250 ml @ 2.5 mls/hr Q24H IV 01/03/24 17:15 01/08/24 10:02 27.5 MLS/HR Furosemide 40 mg TID IV 01/05/24 14:00 01/08/24 05:52 40 MG Sodium Chloride 10 ml QSHIFT@10,22 IV 01/05/24 22:00 01/08/24 10:18 10 ML Fat Emulsion Intravenous 50 ml/ Potassium Acetate 50 meq/Magnesium Sulfate 4 meq/ Multivitamins 10 ml/Amino Acids/ Dextrose/Purified Water 1,086 ml @ 45 mls/hr Q24H8M IV 01/07/24 22:00 01/08/24 21:59 01/07/24 21:44 45 MLS/HR Fat Emulsion Intravenous 50 ml/ Potassium Acetate 50 meq/Magnesium Sulfate 4 meq/ Multivitamins 10 ml/Amino Acids/ Dextrose/Purified Water 1,236 ml @ 51 mls/hr [id number] IV 01/08/24 22:00 01/09/24 21:59 laboratory and microbiology Laboratory Tests 01/08/24 03:46 01/07/24 04:00 Test 01/08/24 03:46 Range/Units Serum Glucose 110 H 74-106 mg/dL Problem List/Assessment/Plan Problem List/Assessment/Plan 01/06/[address] Aditi BUCKLEY, ABDOMEN APPEARS TO BE TENDER IN THE LEFT LOWER QUADRANT, WOUND IS CLEAN AND WELL APPROXIMATED, DRAINAGE FROM LOWER PORTION OF MIDLINE WOUND.AWAITING ir intervention 01/07/24 essentially unchanged, continues hypotensive with leukocytosis, abdomen "full", no BM or flatus reported, spoke to interventional radiologist, he will proceed with drainage of pelvic fluid collection via transgluteal approach 01/08/24 slightly improved, discussed pelvic fluid drainage with radiologist,abdomen soft, non distended, continue current treatments Plan discussed with: Other Dietary Evaluation Review Comments: 1) Advance pt diet when medically feasible to a Cardiac diet 2) Continue current plan of care Expected Outcomes/Goals: 1) F/U in 3-5 days ASPEN EUBANKS MD Jan 08, 2024 11:33
--- NOTE | 2024-01-08 11:35 | DVHPN2 ---
Subjective The patient seen and examined at bedside. No change overnight. The patient remained intubated. Reviewed: Care Plan, H&P, Labs, Medications, Previous Orders, Radiology Changes from previous H/P or p: No Changes Eyes: No Pain, No Vision change, No Conjunctivae inflammation, No Eyelid inflammation, No Other, No Redness ENT: No Ear pain, No Ear discharge, No Nose pain, No Nose discharge, No Nose congestion, No Mouth pain, No Mouth swelling, No Throat pain, No Throat swelling, No Other Cardiovascular: No Chest Pain, No Palpitations, No Orthopnea, No Paroxysmal Noc. Dyspnea, No Edema, No Lt Headedness, No Other Respiratory: Cough, Dry, Shortness of breath Gastrointestinal: Nausea; No Vomiting; Abdominal Pain; No Diarrhea, No Constipation, No Melena, No Hematochezia, No Other Genitourinary: Dysuria; No Frequency, No Incontinence, No Hematuria, No Retention, No Other Musculoskeletal: No other, No neck pain, No shoulder pain, No arm pain, No back pain, No hand pain, No leg pain, No foot pain Skin: No Rash, No Lesions, No Jaundice, No Bruising, No Other Objective Vitals Vital Signs Date Time Temp Pulse Resp B/P (MAP) Pulse Ox O2 Delivery O2 Flow Rate FiO2 01/08/24 11:05 82 26 103/55 (71) 98 30 01/08/24 10:00 Mechanical Ventilator+ 01/08/24 09:45 99.0 210.2 Intake/Output Intake and Output 01/08/24 07:00 Intake Total 1911.129 ml Output Total 1425 ml Balance 486.129 ml Intake Oral 0 ml IV Total 1911.129 ml Output Urine Total 1425 ml Gastric Drainage Total 0 ml General Appearance: Other (sedated and intubated) HEENT: PERRLA Lungs: Clear to auscultation Cardiovascular: Regular rate, Normal S1, Normal S2 Abdomen: Soft, Other (noo bowel sounds) Extremities: Other (edema) Neuro: Other (sedated and ventilated/has cough and gag reflex) Medications Current Medications Medications Dose Ordered Sig/Saige Route Start Time Stop Time Status Last Admin Dose Admin Sodium Chloride 10 ml Q8HR IV 12/17/23 22:00 01/08/24 05:53 10 ML Midazolam HCl 50 ml @ 1 mls/hr Q24H IV 12/25/23 12:30 01/08/24 10:25 6 MLS/HR Nitroglycerin 0.4 mg Q5MINP PRN SL 12/25/23 16:00 Vasopressin 20 units/Sodium Chloride 100 ml @ 9 mls/hr Q11H7M IV 12/25/23 17:15 12/29/23 11:50 9 MLS/HR Phenylephrine HCl 250 ml @ 30 mls/hr Q8H20M IV 12/25/23 17:15 12/26/23 00:42 48.75 MLS/HR Epinephrine HCl 250 ml @ 7.5 mls/hr Q24H IV 12/25/23 18:30 Pantoprazole Sodium 40 mg DAILY IV 12/26/23 10:00 01/08/24 10:18 40 MG Ipratropium [place] 0.5 mg Q6HR NEB 12/27/23 18:00 Cancel Norepinephrine Bitartrate 32 mg/ Sodium Chloride 250 ml @ 0.938 mls/ hr Q24H IV 12/27/23 14:45 01/07/24 03:38 0.938 MLS/HR Amino Acids 0 ml @ 0 mls/hr PER PHARMACY IV 12/28/23 12:00 Diagnostic Test (Pha) 1 strip Q6HR 12/28/23 18:00 01/08/24 05:53 1 STRIP Insulin Human Regular FOLLOW SLIDING SCALE Q6HR SC 12/28/23 18:00 01/04/24 17:28 2 UNITS Dextrose 50 ml UD IV 12/28/23 13:00 Insulin Glargine 15 units DAILY@1000 SC 12/29/23 12:15 01/08/24 10:21 15 UNITS Enoxaparin Sodium 40 mg DAILY SC 12/29/23 12:15 01/08/24 10:18 40 MG Vancomycin HCl 0 ml @ 0 mls/hr UD IV 01/01/24 12:15 Dexmedetomidine HCl 400 mcg/ Dextrose 100 ml @ 4.065 mls/ hr Q24H IV 01/02/24 08:30 01/03/24 02:27 4.065 MLS/HR Meropenem 50 ml @ 17 mls/hr Q8HR IV 01/03/24 22:00 01/08/24 05:52 17 MLS/HR Fentanyl Citrate 250 ml @ 2.5 mls/hr Q24H IV 01/03/24 17:15 01/08/24 10:02 27.5 MLS/HR Furosemide 40 mg TID IV 01/05/24 14:00 01/08/24 05:52 40 MG Sodium Chloride 10 ml QSHIFT@10,22 IV 01/05/24 22:00 01/08/24 10:18 10 ML Fat Emulsion Intravenous 50 ml/ Potassium Acetate 50 meq/Magnesium Sulfate 4 meq/ Multivitamins 10 ml/Amino Acids/ Dextrose/Purified Water 1,086 ml @ 45 mls/hr Q24H8M IV 01/07/24 22:00 01/08/24 21:59 01/07/24 21:44 45 MLS/HR Fat Emulsion Intravenous 50 ml/ Potassium Acetate 50 meq/Magnesium Sulfate 4 meq/ Multivitamins 10 ml/Amino Acids/ Dextrose/Purified Water 1,236 ml @ 51 mls/hr [id number] IV 01/08/24 22:00 01/09/24 21:59 Laboratory Results Laboratory Tests 01/07/24 04:00 01/08/24 03:46 Chemistry Test 01/08/24 03:46 Albumin 2.7 g/dL (3.2-4.8) L Calcium Level 8.6 mg/dL (8.7-10.4) L Magnesium Level 2.2 mg/dL (1.6-2.6) Phosphorus Level 4.5 mg/dL (2.4-5.1) Total Protein 5.8 g/dL (5.7-8.2) LFT Test 01/08/24 03:46 Alanine Aminotransferase (ALT) 83 U/L (7-40) H Alkaline Phosphatase 302 U/L (46-116) H Aspartate Amino Transferase (AST) 256 U/L (13-40) H Total Bilirubin 4.0 mg/dL (0.2-1.0) H Urinalysis Test 12/26/23 01:30 Urine Color Yellow (Yellow) Urine Clarity Turbid (Clear) H Urine pH 5.5 (5.0-9.0) Urine Specific [place] 1.025 (1.001-1.035) Urine Protein 1+ (Negative) H Urine Ketones Trace (Negative) Urine Blood 3+ /uL (Negative) H Urine Nitrite Negative (Negative) Urine Bilirubin Negative (Negative) Urine Urobilinogen Normal mg/dL (Negative) Urine Leukocyte Esterase Negative /uL (Negative) Urine RBC 87 /hpf (0 - 4) Urine WBC 6 /hpf (0 - 5) Urine Squamous Epithelial Cells None seen /hpf (<5) Urine Bacteria Few /hpf (None Seen) H Urine Hyaline Casts Mod /lpf (0 - 2) Urine Granular Casts Few /lpf (0) Urine Mucus Few (None Seen) Urine Yeast (Budding) Occasional /hpf (None Urine Creatinine 64.14 mg/dL (30.0-125.0) Urine Protein/Creatinine Ratio 1.97 Urine Sodium 35 mmol/L (40-220) L Urine Glucose Normal mg/dL (Normal) Urine Total Protein 126.3 mg/dL (1-14) H Blood Gas Results Test 01/08/24 06:52 Arterial Blood pH 7.404 (7.350-7.450) FiO2 % 30.0 Microbiology Microbiology Date/Time Source Procedure Growth Status 01/06/24 16:24 Blood Blood Culture - Preliminary NO GROWTH AFTER 24 HOURS OF INCUBATION. Resulted 01/06/24 14:50 Urine - [place] Urine Culture - Preliminary Resulted 01/05/24 22:00 Catheter Tip Aerobic Culture - Preliminary Resulted 12/30/23 20:08 Sputum Expectorated Sputum Gram Stain - Final Complete 12/30/23 20:08 Respiratory Culture - Final Enterobacter cloacae Complete 12/18/23 13:03 Stool Stool Culture - Final Complete 12/18/23 13:03 Stool Shiga Toxin I & II - Final Complete Labs and/or images reviewed: Labs reviewed by me Assessment/Plan Assessment/Plan Acute hypoxic respiratory failure, on mechanical ventilator did not tolerate cpap trial still with enormous secretions status post bronchoscopy. Sepsis due to liver abscess Chronic systolic heart failure CAD s/p PTCA with multiple stents and s/p defibrillator Distributive shock Metastatic colon cancer to liver status post left colectomy Iron deficiency anemia Acute kidney injury due to shock Metabolic acidosis Lactic acidosis Continuing current management with ventilation support. Continuing with imipenem and vancomycin IV Blood culture and urine culture remained negative Discussed with regarding to IR procedure. He finally give consent to aspirate the fluid from the pelvic area. Waiting for Interventional radiologist. I also discussed with the regarding to potential PEG and Trach and long- term hospital placement. The still optimistic regarding to possible extubate the patient. He also think of sending the patient to pulmonology rehab, [facility]. I explained to him that we might not get her to [facility] regarding to pulmonary rehab. At this point we will have to see if we can extubate her or potential PEG and trach. Continuing TPN. Continuing with vasopressor. Prognosis guarded Plan discussed with: Spouse, Other (RN) My Orders Orders - JAVIER ANNE MD Procedure Category Date Status Time Ct Guidance For CT 01/07/24 Resulted Needle Placeme 12:[address] 01/07/24 Resulted 12:47 Cleanse Wound With DELORES 01/07/24 In Process Wound Clean 11:00 Date of Service: Jan 08, 2024 Billing Provider: JAVIER ANNE MD Common Visit Codes: [id number] INP/OBS CARE(HIGH) JAVIER ANNE MD Jan 08, 2024 11:35
--- NOTE | 2024-01-08 21:36 | DVHPN2 ---
Progress Note - Dictate Date Seen: Jan 08, 2024 Medical Necessity Reason Pt with a Central, PICC or Fol: Yes The following are medically ne: PICC Line, Davies Catheter Reason for davies catheter: Strict I&O Subjective Patient seen and examined at bedside. Sedated, intubated on mechanical ventilator. Overnight events reviewed. vital signs Vital Sign Date Time Temp Pulse Resp B/P (MAP) Pulse Ox O2 Delivery O2 Flow Rate FiO2 01/08/24 20:06 77 21 93/55 (68) 97 30 01/08/24 20:00 Mechanical Ventilator+ 01/08/24 18:30 98.2 208.8 Total Intake and Output 01/07/24 01/07/24 01/08/24 15:00 23:00 07:00 Intake Total 568.941 ml 591.625 ml 750.563 ml Output Total 200 ml 1225 ml Balance 568.941 ml 391.625 ml -474.437 ml medications Current Medications Medications Dose Ordered Sig/Saige Route Start Time Stop Time Status Last Admin Dose Admin Sodium Chloride 10 ml Q8HR IV 12/17/23 22:00 01/08/24 14:25 10 ML Midazolam HCl 50 ml @ 1 mls/hr Q24H IV 12/25/23 12:30 01/08/24 10:25 6 MLS/HR Nitroglycerin 0.4 mg Q5MINP PRN SL 12/25/23 16:00 Vasopressin 20 units/Sodium Chloride 100 ml @ 9 mls/hr Q11H7M IV 12/25/23 17:15 12/29/23 11:50 9 MLS/HR Phenylephrine HCl 250 ml @ 30 mls/hr Q8H20M IV 12/25/23 17:15 12/26/23 00:42 48.75 MLS/HR Epinephrine HCl 250 ml @ 7.5 mls/hr Q24H IV 12/25/23 18:30 Pantoprazole Sodium 40 mg DAILY IV 12/26/23 10:00 01/08/24 10:18 40 MG Ipratropium [place] 0.5 mg Q6HR NEB 12/27/23 18:00 Cancel Norepinephrine Bitartrate 32 mg/ Sodium Chloride 250 ml @ 0.938 mls/ hr Q24H IV 12/27/23 14:45 01/07/24 03:38 0.938 MLS/HR Amino Acids 0 ml @ 0 mls/hr PER PHARMACY IV 12/28/23 12:00 Diagnostic Test (Pha) 1 strip Q6HR 12/28/23 18:00 01/08/24 17:56 1 STRIP Insulin Human Regular FOLLOW SLIDING SCALE Q6HR SC 12/28/23 18:00 01/04/24 17:28 2 UNITS Dextrose 50 ml UD IV 12/28/23 13:00 Insulin Glargine 15 units DAILY@1000 SC 12/29/23 12:15 01/08/24 10:21 15 UNITS Enoxaparin Sodium 40 mg DAILY SC 12/29/23 12:15 01/08/24 10:18 40 MG Dexmedetomidine HCl 400 mcg/ Dextrose 100 ml @ 4.065 mls/ hr Q24H IV 01/02/24 08:30 01/08/24 16:17 4.065 MLS/HR Meropenem 50 ml @ 17 mls/hr Q8HR IV 01/03/24 22:00 01/08/24 14:25 17 MLS/HR Fentanyl Citrate 250 ml @ 2.5 mls/hr Q24H IV 01/03/24 17:15 01/08/24 19:51 22.5 MLS/HR Furosemide 40 mg TID IV 01/05/24 14:00 01/08/24 14:25 40 MG Sodium Chloride 10 ml QSHIFT@10,22 IV 01/05/24 22:00 01/08/24 10:18 10 ML Fat Emulsion Intravenous 50 ml/ Potassium Acetate 50 meq/Magnesium Sulfate 4 meq/ Multivitamins 10 ml/Amino Acids/ Dextrose/Purified Water 1,086 ml @ 45 mls/hr Q24H8M IV 01/07/24 22:00 01/08/24 21:59 01/07/24 21:44 45 MLS/HR Fat Emulsion Intravenous 50 ml/ Potassium Acetate 50 meq/Magnesium Sulfate 4 meq/ Multivitamins 10 ml/Amino Acids/ Dextrose/Purified Water 1,236 ml @ 51 mls/hr [id number] IV 01/08/24 22:00 01/09/24 21:59 objective Gen.: Patient lying in bed in medical ICU. Sedated, intubated on mechanical ventilator. Head: Normocephalic, atraumatic. Eyes: PERRLA. Ears: Normal external anatomy. Throat: Endotracheal tube and orogastric tube in place. Neck: Supple, trachea midline. Chest: Transmitted breath sounds bilaterally. Decreased air entry bilaterally. No wheezing. Bibasilar crackles. Cardiovascular: Positive S1, positive S2. Regular rate and rhythm. Abdomen: Positive bowel sounds in all 4 quadrants. Soft, nontender, nondistended. : Davies in place. Normal external genitalia. Rectal: Deferred. Skin: Warm, dry. Intact. Extremities: 2+ radial pulses bilaterally. No lower extremity edema. Neuro: Sedated. laboratory and microbiology Laboratory Tests 01/08/24 03:46 01/07/24 04:00 Test 01/08/24 03:46 Range/Units Serum Glucose 110 H 74-106 mg/dL Assessment/Plan Impression: Acute hypoxic respiratory failure On mechanical ventilator Sepsis due to liver abscess Possible MARCIANO in liver Chronic systolic heart failure CAD s/p PTCA with multiple stents and s/p defibrillator Distributive shock Metastatic colon cancer status post left colectomy Iron deficiency anemia Acute kidney injury due to shock Metabolic acidosis Lactic acidosis Events: Remains on vent support Currently on assist control with respiratory rate of 16, tidal volume 350, PEEP of 5, FiO2 of 30%. Taper FiO2 as tolerated ABG reviewed, compensated. Sedated on Fentanyl, Versed. On pressors for hemodynamic support. On Levophed at 6 micrograms/minute Titrate to keep MAP above 65 mmHg/SBP above 90 mmHg. Improved pressor requirements S/p IR abscess drainage. Continue antibiotics - meropenem Diurese w/ Lasix as tolerated Monitor renal function Potassium supplementation TPN for nutritional support CPAP trial with PS 8, PEEP of 5. Patient is s/p exploratory laparotomy S/p therapeutic bronchoscopy with RML BAL on 01/03 Labs and imaging reviewed. Rest of plan as noted below. Plan: s/p intubation on mechanical ventilator CXR image and report reviewed. Devices in place. Hypoinflation. ABG reviewed. Acidemia due to metabolic acidosis Assist control mode with respiratory rate of 16, tidal volume 350, PEEP of 5, FiO2 of 30%. Titrate FIO2 to keep O2 saturation above 92%. VAP bundle Daily ABG and CXR while intubated. Sedate for ventilatory synchrony On pressors for hemodynamic support. Titrate to keep MAP above 65 mmHg/SBP above 90 mmHg. Continue antibiotics. F/u cultures. Blood cultures no growth after 5 days. Sputum culture notable for Enterobacter cloacae. Monitor renal function Monitor ins/outs Diurese with Lasix BID Monitor electrolytes. Supplement as necessary. Monitor lactic acid due to lactic acidosis. Nutritional support. Accucheks, ISS. GI/DVT prophylaxis. Condition: Critical Prognosis: Poor given multiple comorbidities. Rest of plan per hospitalist and other consultants. A total of 35 minutes of critical care time was spent reviewing the patient record, examining the patient, making a diagnostic and therapeutic plan, discussing this plan with the medical personnel, following up on diagnostic studies and following the patient for clinical stability excluding any and all procedures. At least 50% of this time was spent in direct, [id number] contact. Thank you Dr. Heath for allowing me to participate in this patient's care. Further recommendations will depend on patient's clinical course. Please do not hesitate to contact me if you have any questions or concerns. This medical document was created using an electronic medical record system with [employer] dictation system. Although this document has been carefully reviewed, there may still be some phonetic and typographical errors. These areas are purely typographical due to imperfections of the software programs, and do not reflect any compromise in the patient's medical care. Dietary Evaluation Review Comments: 1) Advance pt diet when medically feasible to a Cardiac diet 2) Continue current plan of care Expected Outcomes/Goals: 1) F/U in 3-5 days Plan discussed with: Other (WALKER May) Critical Care Time(min): 35 DAYSI DYKES MD Jan 08, 2024 21:36
[2024-01-08] MEDS: TPN PER PHARMACY IV NR (21:55)
[2024-01-09] VITALS (110 sets, daily range): BP systolic 77–125; BP diastolic 38–70; PULSE 61–93; RESP 14–31; TEMP 96.1–99.9; O2SAT 94–100
[2024-01-09 04:11] LABS: Alanine Aminotransferase 79 U/L (7-40); Albumin 2.6 g/dL (3.2-4.8); Alkaline Phosphatase 273 U/L (46-116); Anion Gap 10 (5-15); Aspartate Aminotransferase 253 U/L (13-40); BUN/Creatinine Ratio 89.5 (10.0-20.0); Blood Urea Nitrogen 68 mg/dL (9-23); Calcium 8.5 mg/dL (8.7-10.4); Carbon Dioxide 28 mmol/L (20-31); Chloride 112 mmol/L (98-107); Glucose 124 mg/dL (74-106); Magnesium 2.1 mg/dL (1.6-2.6); Potassium 3.7 mmol/L (3.5-5.1); Sodium 150 mmol/L (136-145)
[2024-01-09 04:12] LABS: Bilirubin, Total 3.6 mg/dL (0.2-1.0); Phosphorus 3.9 mg/dL (2.4-5.1); Total Protein 5.6 g/dL (5.7-8.2)
[2024-01-09 06:25] LABS: Base Excess 0.6 mmol/L (-2.0-3.0)
[2024-01-09 09:28] LABS: Base Excess 0.1 mmol/L (-2.0-3.0)
--- NOTE | 2024-01-09 10:10 | DVHPN2 ---
Progress Note - Dictate Date Seen: Jan 09, 2024 Medical Necessity Reason Pt with a Central, PICC or Fol: Yes The following are medically ne: PICC Line, Davies Catheter Reason for davies catheter: Strict I&O Subjective Patient was seen and examined at bedside. She is sedated, intubated on mechanical ventilator. s/p pelvic fluid aspiration Patient placed on CPAP trial on settings 8/[address] Kitchen. Patient has +pitting edema throughout. Antibiotic status: Vancomycin HCl 200 ml @ 200 mls/hr - [Started 12/31 - Ongoing] Meropenem 50 ml @ 17 mls/hr - [Started - 01/02 - Ongoing] vital signs Vital Sign Date Time Temp Pulse Resp B/P (MAP) Pulse Ox O2 Delivery O2 Flow Rate FiO2 01/09/24 07:55 67 18 92/43 (59) 94 30 01/09/24 06:45 97.2 207.0 01/09/24 06:00 Mechanical Ventilator+ Total Intake and Output 01/08/24 01/08/24 01/09/24 15:00 23:00 07:00 Intake Total 633.315 ml 619.035 ml 654.16 ml Output Total 650 ml 375 ml 875 ml Balance -16.685 ml 244.035 ml -220.84 ml medications Current Medications Medications Dose Ordered Sig/Saige Route Start Time Stop Time Status Last Admin Dose Admin Sodium Chloride 10 ml Q8HR IV 12/17/23 22:00 01/09/24 05:54 10 ML Midazolam HCl 50 ml @ 1 mls/hr Q24H IV 12/25/23 12:30 01/09/24 07:28 2 MLS/HR Nitroglycerin 0.4 mg Q5MINP PRN SL 12/25/23 16:00 Vasopressin 20 units/Sodium Chloride 100 ml @ 9 mls/hr Q11H7M IV 12/25/23 17:15 12/29/23 11:50 9 MLS/HR Phenylephrine HCl 250 ml @ 30 mls/hr Q8H20M IV 12/25/23 17:15 12/26/23 00:42 48.75 MLS/HR Epinephrine HCl 250 ml @ 7.5 mls/hr Q24H IV 12/25/23 18:30 Pantoprazole Sodium 40 mg DAILY IV 12/26/23 10:00 01/08/24 10:18 40 MG Ipratropium [place] 0.5 mg Q6HR NEB 12/27/23 18:00 Cancel Norepinephrine Bitartrate 32 mg/ Sodium Chloride 250 ml @ 0.938 mls/ hr Q24H IV 12/27/23 14:45 01/07/24 03:38 0.938 MLS/HR Amino Acids 0 ml @ 0 mls/hr PER PHARMACY IV 12/28/23 12:00 Diagnostic Test (Pha) 1 strip Q6HR 12/28/23 18:00 01/09/24 05:54 1 STRIP Insulin Human Regular FOLLOW SLIDING SCALE Q6HR SC 12/28/23 18:00 01/04/24 17:28 2 UNITS Dextrose 50 ml UD IV 12/28/23 13:00 Insulin Glargine 15 units DAILY@1000 SC 12/29/23 12:15 01/08/24 10:21 15 UNITS Enoxaparin Sodium 40 mg DAILY SC 12/29/23 12:15 01/08/24 10:18 40 MG Meropenem 50 ml @ 17 mls/hr Q8HR IV 01/03/24 22:00 01/09/24 05:52 17 MLS/HR Fentanyl Citrate 250 ml @ 2.5 mls/hr Q24H IV 01/03/24 17:15 01/09/24 07:31 15 MLS/HR Furosemide 40 mg TID IV 01/05/24 14:00 01/09/24 05:53 40 MG Sodium Chloride 10 ml QSHIFT@10,22 IV 01/05/24 22:00 01/08/24 10:18 10 ML Fat Emulsion Intravenous 50 ml/ Potassium Acetate 50 meq/Magnesium Sulfate 4 meq/ Multivitamins 10 ml/Amino Acids/ Dextrose/Purified Water 1,236 ml @ 51 mls/hr [id number] IV 01/08/24 22:00 01/09/24 21:59 01/08/24 21:55 51 MLS/HR objective General.: Patient lying in bed in medical ICU. Sedated, intubated on mechanical ventilator. Head: Normocephalic, atraumatic. Eyes: PERRLA. Ears: Normal external anatomy. Throat: Endotracheal tube and orogastric tube in place. Neck: Supple, trachea midline. Chest: Transmitted breath sounds bilaterally. Decreased air entry bilaterally. No wheezing. Bibasilar crackles. Cardiovascular: Positive S1, positive S2. Regular rate and rhythm. Abdomen: Positive bowel sounds in all 4 quadrants. Soft, nontender, nondistended. : Davies in place. Normal external genitalia. Rectal: Deferred. Skin: Warm, dry. Intact. Extremities: 2+ radial pulses bilaterally. +4 pitting edema. Neuro: Sedated. laboratory and microbiology Laboratory Tests 01/09/24 03:15 01/07/24 04:00 Test 01/09/24 03:15 Range/Units Serum Glucose 124 H 74-106 mg/dL Assessment/Plan Patient is a 64-year-old female presents to the hospital with: septic shock vs distributive shock leucocytosis ? stress induced vs sepsis Ventilator associated Pneumonia : [place] large bowel obstruction s/p colectomy s/p end to end anastomosis 12/24 possible colon cancer with mets ascites: malignant vs post surgical vs infection Liver mets acute hypoxic respiratory failure on mechanical ventilation CHF anasarca Recommendations: On IV Vancomycin and Meropenem was held on vancomycin on 01/06 and started again on 01/07 plan to continue vancomycin and meropenem until 01/09 leucocytosis is possibly secondary to mets in liver on levaphed ( minimal) plevic fluid cultures are neg ( prelim) 01/06: body fluid cultures : few WBC seen , no organisms 01/05, Blood culture: No growth 01/05, Urine culture: No growth 01/04, Aerobic culture: No growth 12/29 : sputum culture notable for Enterobacter cloacae. CT pelvic wo contrast done on 01/06 : CT guided needle/catheter placement into the low pelvic fluid collection with aspiration of 1-2 mL of yellow serous fluid. No drain was placed. overall prognosis is very poor with mets, Crit time 35 minutes, discussed with primary Thank you for the consult and for giving an opportunity to take care of this patient. Dietary Evaluation Review Comments: 1) Advance pt diet when medically feasible to a Cardiac diet 2) Continue current plan of care Expected Outcomes/Goals: 1) F/U in 3-5 days Plan discussed with: JASPREET Galvan MD Jan 09, 2024 10:10
[2024-01-09 10:11] LABS: Basophils # (auto) 0.2 10 ^3/uL (0-0.2); Eosinophils # (auto) 0.2 10 ^3/uL (0-0.8); Lymphocytes # (auto) 0.8 10 ^3/uL (0.4-5.4); Lymphocytes % (auto) 3.5 % (10.0-50.0); Mean Corpuscular Hemoglobin 24.8 pg (28.0-32.0); Monocytes # (auto) 1.1 10 ^3/uL (0-1.3)
[2024-01-09 10:15] LABS: Basophils % (auto) 0.7 % (0.0-2.0); Hematocrit 27.6 % (36.0-46.0); Hemoglobin 8.4 g/dL (12.2-16.2); Mean Corpuscular Hgb Conc. 30.5 g/dL (32.0-36.0); Mean Corpuscular Volume 81.3 fL (80.0-100.0); Monocytes % (auto) 4.8 % (0.0-12.0); Neutrophils # (auto) 21.3 10 ^3/uL (1.6-8.6); Platelet Count (auto) 360 10^3/uL (140-450); Red Blood Cells 3.39 10^6/uL (4.0-5.20); White Blood Cell 23.7 10^3/uL (4.4-10.8)
[2024-01-09 10:32] LABS: Red Cell Distribution Width 27.5 % (11.8-14.3)
--- NOTE | 2024-01-09 11:03 | DVHPN2 ---
Subjective The patient seen and examined at bedside. No change overnight. The patient remained intubated. Reviewed: Care Plan, H&P, Labs, Medications, Previous Orders, Radiology Changes from previous H/P or p: No Changes Eyes: No Pain, No Vision change, No Conjunctivae inflammation, No Eyelid inflammation, No Other, No Redness ENT: No Ear pain, No Ear discharge, No Nose pain, No Nose discharge, No Nose congestion, No Mouth pain, No Mouth swelling, No Throat pain, No Throat swelling, No Other Cardiovascular: No Chest Pain, No Palpitations, No Orthopnea, No Paroxysmal Noc. Dyspnea, No Edema, No Lt Headedness, No Other Respiratory: Cough, Dry, Shortness of breath Gastrointestinal: Nausea; No Vomiting; Abdominal Pain; No Diarrhea, No Constipation, No Melena, No Hematochezia, No Other Genitourinary: Dysuria; No Frequency, No Incontinence, No Hematuria, No Retention, No Other Musculoskeletal: No other, No neck pain, No shoulder pain, No arm pain, No back pain, No hand pain, No leg pain, No foot pain Skin: No Rash, No Lesions, No Jaundice, No Bruising, No Other Objective Vitals Vital Signs Date Time Temp Pulse Resp B/P (MAP) Pulse Ox O2 Delivery O2 Flow Rate FiO2 01/09/24 10:25 79 31 108/48 (68) 96 30 01/09/24 10:00 Mechanical Ventilator+ 01/09/24 06:45 97.2 207.0 Intake/Output Intake and Output 01/09/24 07:00 Intake Total 1906.510 ml Output Total 1900 ml Balance 6.510 ml IV Total 1906.510 ml Output Urine Total 1900 ml Gastric Drainage Total 0 ml General Appearance: Other (sedated and intubated) HEENT: PERRLA Lungs: Clear to auscultation Cardiovascular: Regular rate, Normal S1, Normal S2 Abdomen: Soft, Other (noo bowel sounds) Extremities: Other (edema) Neuro: Other (sedated and ventilated/has cough and gag reflex) Medications Current Medications Medications Dose Ordered Sig/Saige Route Start Time Stop Time Status Last Admin Dose Admin Sodium Chloride 10 ml Q8HR IV 12/17/23 22:00 01/09/24 05:54 10 ML Midazolam HCl 50 ml @ 1 mls/hr Q24H IV 12/25/23 12:30 01/09/24 07:28 2 MLS/HR Nitroglycerin 0.4 mg Q5MINP PRN SL 12/25/23 16:00 Vasopressin 20 units/Sodium Chloride 100 ml @ 9 mls/hr Q11H7M IV 12/25/23 17:15 12/29/23 11:50 9 MLS/HR Phenylephrine HCl 250 ml @ 30 mls/hr Q8H20M IV 12/25/23 17:15 12/26/23 00:42 48.75 MLS/HR Epinephrine HCl 250 ml @ 7.5 mls/hr Q24H IV 12/25/23 18:30 Pantoprazole Sodium 40 mg DAILY IV 12/26/23 10:00 01/09/24 10:43 40 MG Ipratropium [place] 0.5 mg Q6HR NEB 12/27/23 18:00 Cancel Norepinephrine Bitartrate 32 mg/ Sodium Chloride 250 ml @ 0.938 mls/ hr Q24H IV 12/27/23 14:45 01/07/24 03:38 0.938 MLS/HR Amino Acids 0 ml @ 0 mls/hr PER PHARMACY IV 12/28/23 12:00 Diagnostic Test (Pha) 1 strip Q6HR 12/28/23 18:00 01/09/24 05:54 1 STRIP Insulin Human Regular FOLLOW SLIDING SCALE Q6HR SC 12/28/23 18:00 01/04/24 17:28 2 UNITS Dextrose 50 ml UD IV 12/28/23 13:00 Insulin Glargine 15 units DAILY@1000 SC 12/29/23 12:15 01/08/24 10:21 15 UNITS Enoxaparin Sodium 40 mg DAILY SC 12/29/23 12:15 01/09/24 10:43 40 MG Meropenem 50 ml @ 17 mls/hr Q8HR IV 01/03/24 22:00 01/09/24 05:52 17 MLS/HR Fentanyl Citrate 250 ml @ 2.5 mls/hr Q24H IV 01/03/24 17:15 01/09/24 07:31 15 MLS/HR Furosemide 40 mg TID IV 01/05/24 14:00 01/09/24 05:53 40 MG Sodium Chloride 10 ml QSHIFT@ IV 01/05/24 22:00 01/09/24 10:12 10 ML Fat Emulsion Intravenous 50 ml/ Potassium Acetate 50 meq/Magnesium Sulfate 4 meq/ Multivitamins 10 ml/Amino Acids/ Dextrose/Purified Water 1,236 ml @ 51 mls/hr [id number] IV 01/08/24 22:00 01/09/24 21:59 01/08/24 21:55 51 MLS/HR Laboratory Results Laboratory Tests 01/09/24 10:00 Chemistry Test 01/09/24 03:15 01/09/24 10:00 Albumin 2.6 g/dL (3.2-4.8) L Calcium Level 8.5 mg/dL (8.7-10.4) L Pending Magnesium Level 2.1 mg/dL (1.6-2.6) Phosphorus Level 3.9 mg/dL (2.4-5.1) Total Protein 5.6 g/dL (5.7-8.2) L LFT Test 01/09/24 03:15 Alanine Aminotransferase (ALT) 79 U/L (7-40) H Alkaline Phosphatase 273 U/L (46-116) H Aspartate Amino Transferase (AST) 253 U/L (13-40) H Total Bilirubin 3.6 mg/dL (0.2-1.0) H Urinalysis Test 12/26/23 01:30 Urine Color Yellow (Yellow) Urine Clarity Turbid (Clear) H Urine pH 5.5 (5.0-9.0) Urine Specific [place] 1.025 (1.001-1.035) Urine Protein 1+ (Negative) H Urine Ketones Trace (Negative) Urine Blood 3+ /uL (Negative) H Urine Nitrite Negative (Negative) Urine Bilirubin Negative (Negative) Urine Urobilinogen Normal mg/dL (Negative) Urine Leukocyte Esterase Negative /uL (Negative) Urine RBC 87 /hpf (0 - 4) Urine WBC 6 /hpf (0 - 5) Urine Squamous Epithelial Cells None seen /hpf (<5) Urine Bacteria Few /hpf (None Seen) H Urine Hyaline Casts Mod /lpf (0 - 2) Urine Granular Casts Few /lpf (0) Urine Mucus Few (None Seen) Urine Yeast (Budding) Occasional /hpf (None Urine Creatinine 64.14 mg/dL (30.0-125.0) Urine Protein/Creatinine Ratio 1.97 Urine Sodium 35 mmol/L (40-220) L Urine Glucose Normal mg/dL (Normal) Urine Total Protein 126.3 mg/dL (1-14) H Blood Gas Results Test 01/09/24 05:54 01/09/24 09:23 Arterial Blood pH 7.437 (7.350-7.450) 7.468 (7.350-7.450) FiO2 % 30.0 30.0 Microbiology Microbiology Date/Time Source Procedure Growth Status 01/07/24 15:20 Aspirate Gram Stain - Final Resulted 01/07/24 15:20 Aspirate Body Fluid Culture - Preliminary Resulted 01/06/24 16:24 Blood Blood Culture - Preliminary NO GROWTH AFTER 48 HOURS OF INCUBATION. Resulted 01/06/24 14:50 Urine - [place] Urine Culture - Preliminary Resulted 01/05/24 22:00 Catheter Tip Aerobic Culture - Preliminary Resulted 12/30/23 20:08 Sputum Expectorated Sputum Gram Stain - Final Complete 12/30/23 20:08 Respiratory Culture - Final Enterobacter cloacae Complete 12/18/23 13:03 Stool Stool Culture - Final Complete 12/18/23 13:03 Stool Shiga Toxin I & II - Final Complete Labs and/or images reviewed: Labs reviewed by me Assessment/Plan Assessment/Plan Acute hypoxic respiratory failure, on mechanical ventilator did not tolerate cpap trial still with enormous secretions status post bronchoscopy. Sepsis due to liver abscess Chronic systolic heart failure CAD s/p PTCA with multiple stents and s/p defibrillator Distributive shock Metastatic colon cancer to liver status post left colectomy Iron deficiency anemia Acute kidney injury due to shock Metabolic acidosis Lactic acidosis Continuing current management with ventilation support. Continuing with imipenem and vancomycin IV Blood culture and urine culture remained negative Discussed with regarding to IR procedure. He finally give consent to aspirate the fluid from the pelvic area. Waiting for Interventional radiologist. I also discussed with the regarding to potential PEG and Trach and long- term hospital placement. Continuing TPN. Continuing with vasopressor. Prognosis guarded Plan discussed with: Patient My Orders Orders - JAVIER ANNE MD Procedure Category Date Status Time Complete Blood Count LAB 01/09/24 In Process 05:00 Complete Blood Count LAB 01/10/24 Verified 05:00 Complete Blood Count LAB 01/11/24 Verified 05:00 Complete Blood Count LAB 01/12/24 Verified 05:00 Complete Blood Count LAB 01/13/24 Verified 05:00 Basic Metabolic Panel LAB 01/10/24 Verified 05:00 Basic Metabolic Panel LAB 01/11/24 Verified 05:00 Basic Metabolic Panel LAB 01/12/24 Verified 05:00 Basic Metabolic Panel LAB 01/13/24 Verified 05:00 Basic Metabolic Panel LAB 01/09/24 In Process 09:48 Rbc Morphology LAB 01/09/24 In Process 10:00 Date of Service: Jan 09, 2024 Billing Provider: JAVIER ANNE MD Common Visit Codes: [id number] INP/OBS CARE(HIGH) JAVIER ANNE MD Jan 09, 2024 11:03
--- NOTE | 2024-01-09 11:39 | DVHPN2 ---
Progress Note Date Seen: Jan 09, 2024 Medical Necessity Reason Pt with a Central, PICC or Fol: Yes The following are medically ne: PICC Line, Davies Catheter Reason for davies catheter: Strict I&O Objective vital signs Vital Sign Date Time Temp Pulse Resp B/P (MAP) Pulse Ox O2 Delivery O2 Flow Rate FiO2 01/09/24 11:15 99.5 87 22 100/60 (73) 98 211.1 01/09/24 10:25 30 01/09/24 10:00 Mechanical Ventilator+ Total Intake and Output 01/08/24 01/08/24 01/09/24 15:00 23:00 07:00 Intake Total 633.315 ml 619.035 ml 654.16 ml Output Total 650 ml 375 ml 875 ml Balance -16.685 ml 244.035 ml -220.84 ml medications Current Medications Medications Dose Ordered Sig/Saige Route Start Time Stop Time Status Last Admin Dose Admin Sodium Chloride 10 ml Q8HR IV 12/17/23 22:00 01/09/24 05:54 10 ML Midazolam HCl 50 ml @ 1 mls/hr Q24H IV 12/25/23 12:30 01/09/24 07:28 2 MLS/HR Nitroglycerin 0.4 mg Q5MINP PRN SL 12/25/23 16:00 Vasopressin 20 units/Sodium Chloride 100 ml @ 9 mls/hr Q11H7M IV 12/25/23 17:15 12/29/23 11:50 9 MLS/HR Phenylephrine HCl 250 ml @ 30 mls/hr Q8H20M IV 12/25/23 17:15 12/26/23 00:42 48.75 MLS/HR Epinephrine HCl 250 ml @ 7.5 mls/hr Q24H IV 12/25/23 18:30 Pantoprazole Sodium 40 mg DAILY IV 12/26/23 10:00 01/09/24 10:43 40 MG Ipratropium [place] 0.5 mg Q6HR NEB 12/27/23 18:00 Cancel Norepinephrine Bitartrate 32 mg/ Sodium Chloride 250 ml @ 0.938 mls/ hr Q24H IV 12/27/23 14:45 01/07/24 03:38 0.938 MLS/HR Amino Acids 0 ml @ 0 mls/hr PER PHARMACY IV 12/28/23 12:00 Diagnostic Test (Pha) 1 strip Q6HR 12/28/23 18:00 01/09/24 05:54 1 STRIP Insulin Human Regular FOLLOW SLIDING SCALE Q6HR SC 12/28/23 18:00 01/04/24 17:28 2 UNITS Dextrose 50 ml UD IV 12/28/23 13:00 Insulin Glargine 15 units DAILY@1000 SC 12/29/23 12:15 01/08/24 10:21 15 UNITS Enoxaparin Sodium 40 mg DAILY SC 12/29/23 12:15 01/09/24 10:43 40 MG Meropenem 50 ml @ 17 mls/hr Q8HR IV 01/03/24 22:00 01/09/24 05:52 17 MLS/HR Fentanyl Citrate 250 ml @ 2.5 mls/hr Q24H IV 01/03/24 17:15 01/09/24 07:31 15 MLS/HR Furosemide 40 mg TID IV 01/05/24 14:00 01/09/24 05:53 40 MG Sodium Chloride 10 ml QSHIFT@10,22 IV 01/05/24 22:00 01/09/24 10:12 10 ML Fat Emulsion Intravenous 50 ml/ Potassium Acetate 50 meq/Magnesium Sulfate 4 meq/ Multivitamins 10 ml/Amino Acids/ Dextrose/Purified Water 1,236 ml @ 51 mls/hr [id number] IV 01/08/24 22:00 01/09/24 21:59 01/08/24 21:55 51 MLS/HR laboratory and microbiology Laboratory Tests 01/09/24 10:00 Test 01/09/24 10:00 Range/Units Serum Glucose Pending Problem List/Assessment/Plan Problem List/Assessment/Plan 01/06/[address] Aditi BUCKLEY, ABDOMEN APPEARS TO BE TENDER IN THE LEFT LOWER QUADRANT, WOUND IS CLEAN AND WELL APPROXIMATED, DRAINAGE FROM LOWER PORTION OF MIDLINE WOUND.AWAITING ir intervention 01/07/24 essentially unchanged, continues hypotensive with leukocytosis, abdomen "full", no BM or flatus reported, spoke to interventional radiologist, he will proceed with drainage of pelvic fluid collection via transgluteal approach 01/08/24 slightly improved, discussed pelvic fluid drainage with radiologist,abdomen soft, non distended, continue current treatments 01/09/24 slightly improved, abdomen less tense, wound clean ,drainage clear, good urine output, less pressors requirement Plan discussed with: Other Dietary Evaluation Review Comments: 1) Advance pt diet when medically feasible to a Cardiac diet 2) Continue current plan of care Expected Outcomes/Goals: 1) F/U in 3-5 days ASPEN EUBANKS MD Jan 09, 2024 11:39
[2024-01-09 12:14] LABS: Chloride 113 mmol/L (98-107); Potassium 4.3 mmol/L (3.5-5.1); Sodium 150 mmol/L (136-145)
[2024-01-09 12:18] LABS: Calcium 8.5 mg/dL (8.7-10.4)
[2024-01-09 12:22] LABS: Blood Urea Nitrogen 67 mg/dL (9-23); Glucose 122 mg/dL (74-106)
[2024-01-09 12:27] LABS: Anisocytosis Slight; Hypochromia Slight; Platelet Estimate Adequate
[2024-01-09 13:28] LABS: Anion Gap 9 (5-15); Carbon Dioxide 28 mmol/L (20-31)
--- NOTE | 2024-01-09 20:14 | DVHPN2 ---
Progress Note - Dictate Date Seen: Jan 09, 2024 Medical Necessity Reason Pt with a Central, PICC or Fol: Yes The following are medically ne: PICC Line, Davies Catheter Reason for davies catheter: Strict I&O Subjective Patient seen and examined at bedside. Sedated, intubated on mechanical ventilator. Overnight events reviewed. vital signs Vital Sign Date Time Temp Pulse Resp B/P (MAP) Pulse Ox O2 Delivery O2 Flow Rate FiO2 01/09/24 20:08 76 26 115/62 (79) 100 30 01/09/24 18:45 98.6 209.5 01/09/24 18:00 Mechanical Ventilator+ Total Intake and Output 01/08/24 01/08/24 01/09/24 15:00 23:00 07:00 Intake Total 633.315 ml 619.035 ml 734.04 ml Output Total 650 ml 375 ml 875 ml Balance -16.685 ml 244.035 ml -140.96 ml medications Current Medications Medications Dose Ordered Sig/Saige Route Start Time Stop Time Status Last Admin Dose Admin Sodium Chloride 10 ml Q8HR IV 12/17/23 22:00 01/09/24 15:14 10 ML Midazolam HCl 50 ml @ 1 mls/hr Q24H IV 12/25/23 12:30 01/09/24 07:28 2 MLS/HR Nitroglycerin 0.4 mg Q5MINP PRN SL 12/25/23 16:00 Vasopressin 20 units/Sodium Chloride 100 ml @ 9 mls/hr Q11H7M IV 12/25/23 17:15 12/29/23 11:50 9 MLS/HR Phenylephrine HCl 250 ml @ 30 mls/hr Q8H20M IV 12/25/23 17:15 12/26/23 00:42 48.75 MLS/HR Epinephrine HCl 250 ml @ 7.5 mls/hr Q24H IV 12/25/23 18:30 Pantoprazole Sodium 40 mg DAILY IV 12/26/23 10:00 01/09/24 10:43 40 MG Ipratropium [place] 0.5 mg Q6HR NEB 12/27/23 18:00 Cancel Norepinephrine Bitartrate 32 mg/ Sodium Chloride 250 ml @ 0.938 mls/ hr Q24H IV 12/27/23 14:45 01/09/24 15:14 2.813 MLS/HR Amino Acids 0 ml @ 0 mls/hr PER PHARMACY IV 12/28/23 12:00 Diagnostic Test (Pha) 1 strip Q6HR 12/28/23 18:00 01/09/24 17:45 1 STRIP Insulin Human Regular FOLLOW SLIDING SCALE Q6HR SC 12/28/23 18:00 01/04/24 17:28 2 UNITS Dextrose 50 ml UD IV 12/28/23 13:00 Insulin Glargine 15 units DAILY@1000 SC 12/29/23 12:15 01/08/24 10:21 15 UNITS Meropenem 50 ml @ 17 mls/hr Q8HR IV 01/03/24 22:00 01/09/24 13:24 17 MLS/HR Fentanyl Citrate 250 ml @ 2.5 mls/hr Q24H IV 01/03/24 17:15 01/09/24 07:31 15 MLS/HR Furosemide 40 mg TID IV 01/05/24 14:00 01/09/24 13:25 40 MG Sodium Chloride 10 ml QSHIFT@10,22 IV 01/05/24 22:00 01/09/24 10:12 10 ML Fat Emulsion Intravenous 50 ml/ Potassium Acetate 50 meq/Magnesium Sulfate 4 meq/ Multivitamins 10 ml/Amino Acids/ Dextrose/Purified Water 1,236 ml @ 51 mls/hr [id number] IV 01/08/24 22:00 01/09/24 21:59 01/08/24 21:55 51 MLS/HR Dexmedetomidine HCl 400 mcg/ Dextrose 100 ml @ 3.91 mls/hr Q24H IV 01/09/24 11:45 01/09/24 17:52 7.82 MLS/HR Fat Emulsion Intravenous 100 ml/Potassium Phosphate 44 meq/ Magnesium Sulfate 6 meq/ Multivitamins 10 ml/Amino Acids/ Dextrose/Purified Water 1,221.5 ml @ 51 mls/hr [id number] IV 01/09/24 22:00 01/10/24 21:59 objective Gen.: Patient lying in bed in medical ICU. Sedated, intubated on mechanical ventilator. Head: Normocephalic, atraumatic. Eyes: PERRLA. Ears: Normal external anatomy. Throat: Endotracheal tube and orogastric tube in place. Neck: Supple, trachea midline. Chest: Transmitted breath sounds bilaterally. Decreased air entry bilaterally. No wheezing. Bibasilar crackles. Cardiovascular: Positive S1, positive S2. Regular rate and rhythm. Abdomen: Positive bowel sounds in all 4 quadrants. Soft, nontender, nondistended. : Davies in place. Normal external genitalia. Rectal: Deferred. Skin: Warm, dry. Intact. Extremities: 2+ radial pulses bilaterally. No lower extremity edema. Neuro: Sedated. laboratory and microbiology Laboratory Tests 01/09/24 11:15 01/09/24 10:00 Test 01/09/24 11:15 Range/Units Serum Glucose 122 H 74-106 mg/dL Assessment/Plan Impression: Acute hypoxic respiratory failure On mechanical ventilator Sepsis due to liver abscess Possible MARCIANO in liver Chronic systolic heart failure CAD s/p PTCA with multiple stents and s/p defibrillator Distributive shock Metastatic colon cancer status post left colectomy Iron deficiency anemia Acute kidney injury due to shock Metabolic acidosis Lactic acidosis Events: Remains on vent support Currently on assist control with respiratory rate of 16, tidal volume 350, PEEP of 5, FiO2 of 30%. Taper FiO2 as tolerated ABG reviewed, c/w alkalemia Sedated on Fentanyl, Versed. On Precedex drip. On pressors for hemodynamic support. On Levophed at 6 micrograms/minute Titrate to keep MAP above 65 mmHg/SBP above 90 mmHg. Continue antibiotics - meropenem Blood cultures show no growth IR cultures show no growth. Diurese w/ Lasix as tolerated Monitor renal function Potassium supplementation TPN for nutritional support Patient tolerated CPAP. Awaiting for mentation to improve for extubation. Patient is s/p exploratory laparotomy S/p therapeutic bronchoscopy with RML BAL on 01/03 Labs and imaging reviewed. Rest of plan as noted below. Plan: s/p intubation on mechanical ventilator CXR image and report reviewed. Devices in place. Hypoinflation. ABG reviewed. Acidemia due to metabolic acidosis Assist control mode with respiratory rate of 16, tidal volume 350, PEEP of 5, FiO2 of 30%. Titrate FIO2 to keep O2 saturation above 92%. VAP bundle Daily ABG and CXR while intubated. Sedate for ventilatory synchrony On pressors for hemodynamic support. Titrate to keep MAP above 65 mmHg/SBP above 90 mmHg. Continue antibiotics. F/u cultures. Blood cultures no growth after 5 days. Sputum culture notable for Enterobacter cloacae. Monitor renal function Monitor ins/outs Diurese with Lasix BID Monitor electrolytes. Supplement as necessary. Monitor lactic acid due to lactic acidosis. Nutritional support. Accucheks, ISS. GI/DVT prophylaxis. Condition: Critical Prognosis: Poor given multiple comorbidities. Rest of plan per hospitalist and other consultants. A total of 35 minutes of critical care time was spent reviewing the patient record, examining the patient, making a diagnostic and therapeutic plan, discussing this plan with the medical personnel, following up on diagnostic studies and following the patient for clinical stability excluding any and all procedures. At least 50% of this time was spent in direct, [id number] contact. Thank you Dr. Heath for allowing me to participate in this patient's care. Further recommendations will depend on patient's clinical course. Please do not hesitate to contact me if you have any questions or concerns. This medical document was created using an electronic medical record system with [employer] dictation system. Although this document has been carefully reviewed, there may still be some phonetic and typographical errors. These areas are purely typographical due to imperfections of the software programs, and do not reflect any compromise in the patient's medical care. Dietary Evaluation Review Comments: 1) Advance pt diet when medically feasible to a Cardiac diet 2) Continue current plan of care Expected Outcomes/Goals: 1) F/U in 3-5 days Plan discussed with: Other (WALKER Coulter) Critical Care Time(min): 35 DAYSI DYKES MD Jan 09, 2024 20:14
[2024-01-09] MEDS: TPN PER PHARMACY IV NR (21:35)
[2024-01-10] VITALS (108 sets, daily range): BP systolic 72–142; BP diastolic 41–103; PULSE 69–126; RESP 14–35; TEMP 97.5–100; O2SAT 92–100
[2024-01-10 04:16] LABS: Mean Corpuscular Hemoglobin 24.9 pg (28.0-32.0); Mean Corpuscular Volume 77.9 fL (80.0-100.0); Platelet Count (auto) 399 10^3/uL (140-450); White Blood Cell 21.3 10^3/uL (4.4-10.8)
[2024-01-10 04:20] LABS: Red Cell Distribution Width 26.6 % (11.8-14.3)
[2024-01-10 04:22] LABS: Basophils % (manual) 0 (0.0-2.0); Blast Cells 0; Eosinophils % (manual) 0 (0-7); Metamyelocytes % 0; Myelocytes % 0; Promyelocytes % 0; Reactive Lymphocytes 0
[2024-01-10 04:31] LABS: Alanine Aminotransferase 82 U/L (7-40); Albumin 2.5 g/dL (3.2-4.8); Alkaline Phosphatase 313 U/L (46-116); Anion Gap 12 (5-15); Aspartate Aminotransferase 258 U/L (13-40); BUN/Creatinine Ratio 83.3 (10.0-20.0); Blood Urea Nitrogen 65 mg/dL (9-23); Calcium 8.6 mg/dL (8.7-10.4); Carbon Dioxide 28 mmol/L (20-31); Chloride 113 mmol/L (98-107); Glucose 128 mg/dL (74-106); Magnesium 2.2 mg/dL (1.6-2.6); Potassium 3.4 mmol/L (3.5-5.1); Sodium 153 mmol/L (136-145)
[2024-01-10 04:32] LABS: Bilirubin, Total 3.6 mg/dL (0.2-1.0); Phosphorus 4.2 mg/dL (2.4-5.1); Total Protein 5.7 g/dL (5.7-8.2)
[2024-01-10 05:31] LABS: Anisocytosis Moderate; Band Neutrophils % (manual) 2; Giant Platelets Few; Large Platelets FEW; Lymphocytes % (manual) 4 (10.0-50.0); Monocytes % (manual) 6 (0-12); Platelet Estimate Adequa
[2024-01-10 05:32] LABS: Ovalocytes FEW
[2024-01-10 05:33] LABS: Target Cell FEW
[2024-01-10] MEDS: POTASSIUM CHL 20MEQ/100ML 100 ML IV ONE ×2 (06:40→18:30)
--- NOTE | 2024-01-10 08:16 | DVHPN2 ---
Progress Note Date Seen: Jan 10, 2024 Medical Necessity Reason Pt with a Central, PICC or Fol: Yes The following are medically ne: PICC Line, Davies Catheter Reason for davies catheter: Strict I&O Objective vital signs Vital Sign Date Time Temp Pulse Resp B/P (MAP) Pulse Ox O2 Delivery O2 Flow Rate FiO2 01/10/24 07:16 95 31 122/80 (94) 98 30 01/10/24 06:45 99.1 210.4 01/10/24 06:00 Mechanical Ventilator+ Total Intake and Output 01/09/24 01/09/24 01/10/24 15:00 23:00 07:00 Intake Total 531.766 ml 565.264 ml 523.920 ml Output Total 1025 ml 1125 ml Balance 531.766 ml -459.736 ml -601.080 ml medications Current Medications Medications Dose Ordered Sig/Saige Route Start Time Stop Time Status Last Admin Dose Admin Sodium Chloride 10 ml Q8HR IV 12/17/23 22:00 01/10/24 05:32 10 ML Midazolam HCl 50 ml @ 1 mls/hr Q24H IV 12/25/23 12:30 01/09/24 07:28 2 MLS/HR Nitroglycerin 0.4 mg Q5MINP PRN SL 12/25/23 16:00 Vasopressin 20 units/Sodium Chloride 100 ml @ 9 mls/hr Q11H7M IV 12/25/23 17:15 12/29/23 11:50 9 MLS/HR Phenylephrine HCl 250 ml @ 30 mls/hr Q8H20M IV 12/25/23 17:15 12/26/23 00:42 48.75 MLS/HR Epinephrine HCl 250 ml @ 7.5 mls/hr Q24H IV 12/25/23 18:30 Pantoprazole Sodium 40 mg DAILY IV 12/26/23 10:00 01/09/24 10:43 40 MG Ipratropium [place] 0.5 mg Q6HR NEB 12/27/23 18:00 Cancel Norepinephrine Bitartrate 32 mg/ Sodium Chloride 250 ml @ 0.938 mls/ hr Q24H IV 12/27/23 14:45 01/09/24 15:14 2.813 MLS/HR Amino Acids 0 ml @ 0 mls/hr PER PHARMACY IV 12/28/23 12:00 Diagnostic Test (Pha) 1 strip Q6HR 12/28/23 18:00 01/10/24 05:32 1 STRIP Insulin Human Regular FOLLOW SLIDING SCALE Q6HR SC 12/28/23 18:00 01/04/24 17:28 2 UNITS Dextrose 50 ml UD IV 12/28/23 13:00 Insulin Glargine 15 units DAILY@1000 SC 12/29/23 12:15 01/08/24 10:21 15 UNITS Meropenem 50 ml @ 17 mls/hr Q8HR IV 01/03/24 22:00 01/10/24 05:34 17 MLS/HR Fentanyl Citrate 250 ml @ 2.5 mls/hr Q24H IV 01/03/24 17:15 01/09/24 07:31 15 MLS/HR Furosemide 40 mg TID IV 01/05/24 14:00 01/10/24 05:35 40 MG Sodium Chloride 10 ml QSHIFT@ IV 01/05/24 22:00 01/09/24 10:12 10 ML Dexmedetomidine HCl 400 mcg/ Dextrose 100 ml @ 3.91 mls/hr Q24H IV 01/09/24 11:45 01/10/24 07:13 7.82 MLS/HR Fat Emulsion Intravenous 100 ml/Potassium Phosphate 44 meq/ Magnesium Sulfate 6 meq/ Multivitamins 10 ml/Amino Acids/ Dextrose/Purified Water 1,221.5 ml @ 51 mls/hr [id number] IV 01/09/24 22:00 01/10/24 21:59 01/09/24 21:35 51 MLS/HR laboratory and microbiology Laboratory Tests 01/10/24 03:30 Test 01/10/24 03:30 Range/Units Serum Glucose 128 H 74-106 mg/dL Problem List/Assessment/Plan Problem List/Assessment/Plan 01/06/[address] Aditi BUCKLEY, ABDOMEN APPEARS TO BE TENDER IN THE LEFT LOWER QUADRANT, WOUND IS CLEAN AND WELL APPROXIMATED, DRAINAGE FROM LOWER PORTION OF MIDLINE WOUND.AWAITING ir intervention 01/07/24 essentially unchanged, continues hypotensive with leukocytosis, abdomen "full", no BM or flatus reported, spoke to interventional radiologist, he will proceed with drainage of pelvic fluid collection via transgluteal approach 01/08/24 slightly improved, discussed pelvic fluid drainage with radiologist,abdomen soft, non distended, continue current treatments 01/09/24 slightly improved, abdomen less tense, wound clean ,drainage clear, good urine output, less pressors requirement 01/10/24 wbc slightly better, wound ok, abdomen soft and non distended, no BM, will add reglan, once she passes flatus NG tube can be DC'd Plan discussed with: Other Dietary Evaluation Review Comments: 1) Advance pt diet when medically feasible to a Cardiac diet 2) Continue current plan of care Expected Outcomes/Goals: 1) F/U in 3-5 days ASPEN EUBANKS MD Jan 10, 2024 08:16
[2024-01-10 08:32] LABS: Base Excess 1.1 mmol/L (-2.0-3.0)
--- NOTE | 2024-01-10 08:53 | DVHPN2 ---
Progress Note - Dictate Date Seen: Jan 10, 2024 Medical Necessity Reason Pt with a Central, PICC or Fol: Yes The following are medically ne: PICC Line, Davies Catheter Reason for davies catheter: Strict I&O Subjective Patient was seen and examined at bedside. She is sedated, intubated on mechanical ventilator. s/p pelvic fluid aspiration Patient placed on CPAP trial on settings 8/[address] Kitchen. Patient has +pitting edema throughout. Antibiotic status: Vancomycin HCl 200 ml @ 200 mls/hr - [Started 12/31 - 01/07] Meropenem 50 ml @ 17 mls/hr - [Started - 01/02 - Ongoing] vital signs Vital Sign Date Time Temp Pulse Resp B/P (MAP) Pulse Ox O2 Delivery O2 Flow Rate FiO2 01/10/24 07:16 95 31 122/80 (94) 98 30 01/10/24 06:45 99.1 210.4 01/10/24 06:00 Mechanical Ventilator+ Total Intake and Output 01/09/24 01/09/24 01/10/24 15:00 23:00 07:00 Intake Total 531.766 ml 565.264 ml 584.615 ml Output Total 1025 ml 1125 ml Balance 531.766 ml -459.736 ml -540.385 ml medications Current Medications Medications Dose Ordered Sig/Saige Route Start Time Stop Time Status Last Admin Dose Admin Sodium Chloride 10 ml Q8HR IV 12/17/23 22:00 01/10/24 05:32 10 ML Midazolam HCl 50 ml @ 1 mls/hr Q24H IV 12/25/23 12:30 01/09/24 07:28 2 MLS/HR Nitroglycerin 0.4 mg Q5MINP PRN SL 12/25/23 16:00 Vasopressin 20 units/Sodium Chloride 100 ml @ 9 mls/hr Q11H7M IV 12/25/23 17:15 12/29/23 11:50 9 MLS/HR Phenylephrine HCl 250 ml @ 30 mls/hr Q8H20M IV 12/25/23 17:15 12/26/23 00:42 48.75 MLS/HR Epinephrine HCl 250 ml @ 7.5 mls/hr Q24H IV 12/25/23 18:30 Pantoprazole Sodium 40 mg DAILY IV 12/26/23 10:00 01/09/24 10:43 40 MG Ipratropium [place] 0.5 mg Q6HR NEB 12/27/23 18:00 Cancel Norepinephrine Bitartrate 32 mg/ Sodium Chloride 250 ml @ 0.938 mls/ hr Q24H IV 12/27/23 14:45 01/09/24 15:14 2.813 MLS/HR Amino Acids 0 ml @ 0 mls/hr PER PHARMACY IV 12/28/23 12:00 Diagnostic Test (Pha) 1 strip Q6HR 12/28/23 18:00 01/10/24 05:32 1 STRIP Insulin Human Regular FOLLOW SLIDING SCALE Q6HR SC 12/28/23 18:00 01/04/24 17:28 2 UNITS Dextrose 50 ml UD IV 12/28/23 13:00 Insulin Glargine 15 units DAILY@1000 SC 12/29/23 12:15 01/08/24 10:21 15 UNITS Meropenem 50 ml @ 17 mls/hr Q8HR IV 01/03/24 22:00 01/10/24 05:34 17 MLS/HR Fentanyl Citrate 250 ml @ 2.5 mls/hr Q24H IV 01/03/24 17:15 01/09/24 07:31 15 MLS/HR Furosemide 40 mg TID IV 01/05/24 14:00 01/10/24 05:35 40 MG Sodium Chloride 10 ml QSHIFT@10,22 IV 01/05/24 22:00 01/09/24 10:12 10 ML Dexmedetomidine HCl 400 mcg/ Dextrose 100 ml @ 3.91 mls/hr Q24H IV 01/09/24 11:45 01/10/24 07:13 7.82 MLS/HR Fat Emulsion Intravenous 100 ml/Potassium Phosphate 44 meq/ Magnesium Sulfate 6 meq/ Multivitamins 10 ml/Amino Acids/ Dextrose/Purified Water 1,221.5 ml @ 51 mls/hr [id number] IV 01/09/24 22:00 01/10/24 21:59 01/09/24 21:35 51 MLS/HR Metoclopramide HCl 10 mg Q8HR GT 01/10/24 14:00 objective General.: Patient lying in bed in medical ICU. Sedated, intubated on mechanical ventilator. Head: Normocephalic, atraumatic. Eyes: PERRLA. Ears: Normal external anatomy. Throat: Endotracheal tube and orogastric tube in place. Neck: Supple, trachea midline. Chest: Transmitted breath sounds bilaterally. Decreased air entry bilaterally. No wheezing. Bibasilar crackles. Cardiovascular: Positive S1, positive S2. Regular rate and rhythm. Abdomen: Positive bowel sounds in all 4 quadrants. Soft, nontender, nondistended. : Davies in place. Normal external genitalia. Rectal: Deferred. Skin: Warm, dry. Intact. Extremities: 2+ radial pulses bilaterally. +4 pitting edema. Neuro: Sedated. laboratory and microbiology Laboratory Tests 01/10/24 03:30 Test 01/10/24 03:30 Range/Units Serum Glucose 128 H 74-106 mg/dL Assessment/Plan Patient is a 64-year-old female presents to the hospital with: septic shock vs distributive shock leucocytosis ? stress induced vs sepsis Ventilator associated Pneumonia : [place] large bowel obstruction s/p colectomy s/p end to end anastomosis 12/24 possible colon cancer with mets ascites: malignant vs post surgical vs infection Liver mets acute hypoxic respiratory failure on mechanical ventilation CHF anasarca Recommendations: On IV Meropenem, was held on vancomycin on 01/06 and started again on 01/07 plan to continue Vancomycin and Meropenem until 01/09, Vancomycin discontinued. leucocytosis is possibly secondary to mets in liver on levaphed ( minimal) plevic fluid cultures are neg 01/06: body fluid cultures : few WBC seen , no organisms 01/05, Blood culture: No growth 01/05, Urine culture: No growth 01/04, Aerobic culture: No growth 12/29 : sputum culture notable for Enterobacter cloacae. CT pelvic wo contrast done on 01/06 : CT guided needle/catheter placement into the low pelvic fluid collection with aspiration of 1-2 mL of yellow serous fluid. No drain was placed. overall prognosis is very poor with mets, Crit time 35 minutes, discussed with primary Thank you for the consult and for giving an opportunity to take care of this patient. Dietary Evaluation Review Comments: 1) Advance pt diet when medically feasible to a Cardiac diet 2) Continue current plan of care Expected Outcomes/Goals: 1) F/U in 3-5 days Plan discussed with: JASPREET Galvan MD Jan 10, 2024 08:52
--- NOTE | 2024-01-10 10:50 | DVH ---
EXAM: XR Chest, 1 View CLINICAL INDICATION: INTUBATED TECHNIQUE: Frontal view of the chest. COMPARISON: XY CHEST PORTABLE on DOS: 01/07/24, XY CHEST PORTABLE on DOS: 01/06/24, XY CHEST PORTAB LE on DOS: 01/06/24 FINDINGS: LUNGS AND PLEURAL SPACES: Left basilar atelectasis or pneumonia. Pulmonary venous congestion. No p neumothorax. HEART: Unremarkable. No cardiomegaly. MEDIASTINUM: Unremarkable. Normal mediastinal contour. BONES/JOINTS: Unremarkable. No acute fracture. TUBES, LINES AND DEVICES: The endotracheal tube (ETT) is in satisfactory position. Enteric tube tip in the stomach. Left-sided cardiac pacemaker. OTHER FINDINGS: . . IMPRESSION: 1. Left basilar atelectasis or pneumonia. 2. Pulmonary venous congestion. HS:Y
[2024-01-10] MEDS: METOCLOPRAMIDE 10 mg/10ml ORAL soln GT SCH (13:35)
--- NOTE | 2024-01-10 13:57 | DVHPN2 ---
Subjective The patient seen and examined at bedside. No change overnight. The patient remained intubated. Reviewed: Care Plan, H&P, Labs, Medications, Previous Orders, Radiology Changes from previous H/P or p: No Changes Eyes: No Pain, No Vision change, No Conjunctivae inflammation, No Eyelid inflammation, No Other, No Redness ENT: No Ear pain, No Ear discharge, No Nose pain, No Nose discharge, No Nose congestion, No Mouth pain, No Mouth swelling, No Throat pain, No Throat swelling, No Other Cardiovascular: No Chest Pain, No Palpitations, No Orthopnea, No Paroxysmal Noc. Dyspnea, No Edema, No Lt Headedness, No Other Respiratory: Cough, Dry, Shortness of breath Gastrointestinal: Nausea; No Vomiting; Abdominal Pain; No Diarrhea, No Constipation, No Melena, No Hematochezia, No Other Genitourinary: Dysuria; No Frequency, No Incontinence, No Hematuria, No Retention, No Other Musculoskeletal: No other, No neck pain, No shoulder pain, No arm pain, No back pain, No hand pain, No leg pain, No foot pain Skin: No Rash, No Lesions, No Jaundice, No Bruising, No Other Objective Vitals Vital Signs Date Time Temp Pulse Resp B/P (MAP) Pulse Ox O2 Delivery O2 Flow Rate FiO2 01/10/24 13:24 84/60 01/10/24 12:31 88 27 96 30 01/10/24 12:00 Mechanical Ventilator+ 01/10/24 06:45 99.1 210.4 Intake/Output Intake and Output 01/10/24 07:00 Intake Total 1681.645 ml Output Total 2150 ml Balance -468.355 ml IV Total 1681.645 ml Output Urine Total 2150 ml Gastric Drainage Total 0 ml General Appearance: Other (sedated and intubated) HEENT: PERRLA Lungs: Clear to auscultation Cardiovascular: Regular rate, Normal S1, Normal S2 Abdomen: Soft, Other (noo bowel sounds) Extremities: Other (edema) Neuro: Other (sedated and ventilated/has cough and gag reflex) Medications Current Medications Medications Dose Ordered Sig/Saige Route Start Time Stop Time Status Last Admin Dose Admin Sodium Chloride 10 ml Q8HR IV 12/17/23 22:00 01/10/24 13:25 10 ML Midazolam HCl 50 ml @ 1 mls/hr Q24H IV 12/25/23 12:30 01/09/24 07:28 2 MLS/HR Nitroglycerin 0.4 mg Q5MINP PRN SL 12/25/23 16:00 Vasopressin 20 units/Sodium Chloride 100 ml @ 9 mls/hr Q11H7M IV 12/25/23 17:15 12/29/23 11:50 9 MLS/HR Phenylephrine HCl 250 ml @ 30 mls/hr Q8H20M IV 12/25/23 17:15 12/26/23 00:42 48.75 MLS/HR Epinephrine HCl 250 ml @ 7.5 mls/hr Q24H IV 12/25/23 18:30 Pantoprazole Sodium 40 mg DAILY IV 12/26/23 10:00 01/10/24 09:37 40 MG Ipratropium [place] 0.5 mg Q6HR NEB 12/27/23 18:00 Cancel Norepinephrine Bitartrate 32 mg/ Sodium Chloride 250 ml @ 0.938 mls/ hr Q24H IV 12/27/23 14:45 01/09/24 15:14 2.813 MLS/HR Amino Acids 0 ml @ 0 mls/hr PER PHARMACY IV 12/28/23 12:00 Diagnostic Test (Pha) 1 strip Q6HR 12/28/23 18:00 01/10/24 11:47 1 STRIP Insulin Human Regular FOLLOW SLIDING SCALE Q6HR CT 12/28/23 18:00 01/10/24 11:54 2 UNITS Dextrose 50 ml UD IV 12/28/23 13:00 Insulin Glargine 15 units DAILY@1000 CT 12/29/23 12:15 01/10/24 09:38 15 UNITS Meropenem 50 ml @ 17 mls/hr Q8HR IV 01/03/24 22:00 01/10/24 13:23 17 MLS/HR Fentanyl Citrate 250 ml @ 2.5 mls/hr Q24H IV 01/03/24 17:15 01/09/24 07:31 15 MLS/HR Furosemide 40 mg TID IV 01/05/24 14:00 01/10/24 13:24 40 MG Sodium Chloride 10 ml QSHIFT@10,22 IV 01/05/24 22:00 01/10/24 09:37 10 ML Dexmedetomidine HCl 400 mcg/ Dextrose 100 ml @ 3.91 mls/hr Q24H IV 01/09/24 11:45 01/10/24 07:13 7.82 MLS/HR Fat Emulsion Intravenous 100 ml/Potassium Phosphate 44 meq/ Magnesium Sulfate 6 meq/ Multivitamins 10 ml/Amino Acids/ Dextrose/Purified Water 1,221.5 ml @ 51 mls/hr [id number] IV 01/09/24 22:00 01/10/24 21:59 01/09/24 21:35 51 MLS/HR Metoclopramide HCl 10 mg Q8HR GT 01/10/24 14:00 01/10/24 13:35 10 MG Fat Emulsion Intravenous 50 ml/ Potassium Acetate 30 meq/Potassium Phosphate 22 meq/ Magnesium Sulfate 6 meq/ Multivitamins 10 ml/Amino Acids/ Dextrose/Purified Water 1,231.5 ml @ 51 mls/hr Q24H9M IV 01/10/24 22:00 01/11/24 21:59 Laboratory Results Laboratory Tests 01/10/24 03:30 Chemistry Test 01/10/24 03:30 Albumin 2.5 g/dL (3.2-4.8) L Calcium Level 8.6 mg/dL (8.7-10.4) L Magnesium Level 2.2 mg/dL (1.6-2.6) Phosphorus Level 4.2 mg/dL (2.4-5.1) Total Protein 5.7 g/dL (5.7-8.2) LFT Test 01/10/24 03:30 Alanine Aminotransferase (ALT) 82 U/L (7-40) H Alkaline Phosphatase 313 U/L (46-116) H Aspartate Amino Transferase (AST) 258 U/L (13-40) H Total Bilirubin 3.6 mg/dL (0.2-1.0) H Urinalysis Test 12/26/23 01:30 Urine Color Yellow (Yellow) Urine Clarity Turbid (Clear) H Urine pH 5.5 (5.0-9.0) Urine Specific [place] 1.025 (1.001-1.035) Urine Protein 1+ (Negative) H Urine Ketones Trace (Negative) Urine Blood 3+ /uL (Negative) H Urine Nitrite Negative (Negative) Urine Bilirubin Negative (Negative) Urine Urobilinogen Normal mg/dL (Negative) Urine Leukocyte Esterase Negative /uL (Negative) Urine RBC 87 /hpf (0 - 4) Urine WBC 6 /hpf (0 - 5) Urine Squamous Epithelial Cells None seen /hpf (<5) Urine Bacteria Few /hpf (None Seen) H Urine Hyaline Casts Mod /lpf (0 - 2) Urine Granular Casts Few /lpf (0) Urine Mucus Few (None Seen) Urine Yeast (Budding) Occasional /hpf (None Urine Creatinine 64.14 mg/dL (30.0-125.0) Urine Protein/Creatinine Ratio 1.97 Urine Sodium 35 mmol/L (40-220) L Urine Glucose Normal mg/dL (Normal) Urine Total Protein 126.3 mg/dL (1-14) H Blood Gas Results Test 01/10/24 08:14 Arterial Blood pH 7.448 (7.350-7.450) FiO2 % 30.0 Microbiology Microbiology Date/Time Source Procedure Growth Status 01/07/24 15:20 Aspirate Gram Stain - Final Resulted 01/07/24 15:20 Aspirate Body Fluid Culture - Preliminary Resulted 01/06/24 16:24 Blood Blood Culture - Preliminary NO GROWTH AFTER 72 HOURS OF INCUBATION. Resulted 01/06/24 14:50 Urine - [place] Urine Culture - Final Complete 01/05/24 22:00 Catheter Tip Aerobic Culture - Preliminary Resulted 12/30/23 20:08 Sputum Expectorated Sputum Gram Stain - Final Complete 12/30/23 20:08 Respiratory Culture - Final Enterobacter cloacae Complete 12/18/23 13:03 Stool Stool Culture - Final Complete 12/18/23 13:03 Stool Shiga Toxin I & II - Final Complete Labs and/or images reviewed: Labs reviewed by me Assessment/Plan Assessment/Plan Acute hypoxic respiratory failure, on mechanical ventilator did not tolerate cpap trial still with enormous secretions status post bronchoscopy. Sepsis due to liver abscess Chronic systolic heart failure CAD s/p PTCA with multiple stents and s/p defibrillator Distributive shock Metastatic colon cancer to liver status post left colectomy Iron deficiency anemia Acute kidney injury due to shock Metabolic acidosis Lactic acidosis Continuing current management with ventilation support. Continuing with imipenem and vancomycin IV Blood culture and urine culture remained negative Discussed with regarding to IR procedure. He finally give consent to aspirate the fluid from the pelvic area. Waiting for Interventional radiologist. I also discussed with the regarding to potential PEG in [facility] placement. Continuing TPN. Continuing with vasopressor. Prognosis guarded Will order CXRay. Plan discussed with: Spouse My Orders Orders - JAVIER ANNE MD Procedure Category Date Status Time Chest Xray 1 View XY 01/10/24 Resulted 07:12 Date of Service: Jan 10, 2024 Billing Provider: JAVIER ANNE MD Common Visit Codes: [id number] INP/OBS CARE(HIGH) JAVIER ANNE MD Jan 10, 2024 13:57
--- NOTE | 2024-01-10 21:27 | DVHPN2 ---
Progress Note - Dictate Date Seen: Jan 10, 2024 Medical Necessity Reason Pt with a Central, PICC or Fol: Yes The following are medically ne: PICC Line, Davies Catheter Reason for davies catheter: Strict I&O Subjective Patient seen and examined at bedside. Sedated, intubated on mechanical ventilator. Overnight events reviewed. vital signs Vital Sign Date Time Temp Pulse Resp B/P (MAP) Pulse Ox O2 Delivery O2 Flow Rate FiO2 01/10/24 20:14 76 20 115/62 (79) 96 30 01/10/24 20:00 Mechanical Ventilator+ 01/10/24 18:00 98.4 98.4 Total Intake and Output 01/10/24 01/10/24 01/10/24 01:30 09:30 17:30 Intake Total 562.443 ml 577.123 ml 642.338 ml Output Total 1025 ml 1125 ml Balance -462.557 ml -547.877 ml 642.338 ml medications Current Medications Medications Dose Ordered Sig/Saige Route Start Time Stop Time Status Last Admin Dose Admin Sodium Chloride 10 ml Q8HR IV 12/17/23 22:00 01/10/24 13:25 10 ML Midazolam HCl 50 ml @ 1 mls/hr Q24H IV 12/25/23 12:30 01/09/24 07:28 2 MLS/HR Nitroglycerin 0.4 mg Q5MINP PRN SL 12/25/23 16:00 Vasopressin 20 units/Sodium Chloride 100 ml @ 9 mls/hr Q11H7M IV 12/25/23 17:15 12/29/23 11:50 9 MLS/HR Phenylephrine HCl 250 ml @ 30 mls/hr Q8H20M IV 12/25/23 17:15 12/26/23 00:42 48.75 MLS/HR Epinephrine HCl 250 ml @ 7.5 mls/hr Q24H IV 12/25/23 18:30 Pantoprazole Sodium 40 mg DAILY IV 12/26/23 10:00 01/10/24 09:37 40 MG Ipratropium [place] 0.5 mg Q6HR NEB 12/27/23 18:00 Cancel Norepinephrine Bitartrate 32 mg/ Sodium Chloride 250 ml @ 0.938 mls/ hr Q24H IV 12/27/23 14:45 01/10/24 14:08 0.938 MLS/HR Amino Acids 0 ml @ 0 mls/hr PER PHARMACY IV 12/28/23 12:00 Diagnostic Test (Pha) 1 strip Q6HR 12/28/23 18:00 01/10/24 17:39 1 STRIP Insulin Human Regular FOLLOW SLIDING SCALE Q6HR SC 12/28/23 18:00 01/10/24 17:42 2 UNITS Dextrose 50 ml UD IV 12/28/23 13:00 Insulin Glargine 15 units DAILY@1000 SC 12/29/23 12:15 01/10/24 09:38 15 UNITS Meropenem 50 ml @ 17 mls/hr Q8HR IV 01/03/24 22:00 01/10/24 13:23 17 MLS/HR Fentanyl Citrate 250 ml @ 2.5 mls/hr Q24H IV 01/03/24 17:15 01/10/24 15:48 22.5 MLS/HR Furosemide 40 mg TID IV 01/05/24 14:00 01/10/24 13:24 40 MG Sodium Chloride 10 ml QSHIFT@10,22 IV 01/05/24 22:00 01/10/24 09:37 10 ML Dexmedetomidine HCl 400 mcg/ Dextrose 100 ml @ 3.91 mls/hr Q24H IV 01/09/24 11:45 01/10/24 07:13 7.82 MLS/HR Fat Emulsion Intravenous 100 ml/Potassium Phosphate 44 meq/ Magnesium Sulfate 6 meq/ Multivitamins 10 ml/Amino Acids/ Dextrose/Purified Water 1,221.5 ml @ 51 mls/hr [id number] IV 01/09/24 22:00 01/10/24 21:59 01/09/24 21:35 51 MLS/HR Metoclopramide HCl 10 mg Q8HR GT 01/10/24 14:00 01/10/24 13:35 10 MG Fat Emulsion Intravenous 50 ml/ Potassium Acetate 30 meq/Potassium Phosphate 22 meq/ Magnesium Sulfate 6 meq/ Multivitamins 10 ml/Amino Acids/ Dextrose/Purified Water 1,231.5 ml @ 51 mls/hr Q24H9M IV 01/10/24 22:00 01/11/24 21:59 objective Gen.: Patient lying in bed in medical ICU. Sedated, intubated on mechanical ventilator. Head: Normocephalic, atraumatic. Eyes: PERRLA. Ears: Normal external anatomy. Throat: Endotracheal tube and orogastric tube in place. Neck: Supple, trachea midline. Chest: Transmitted breath sounds bilaterally. Decreased air entry bilaterally. No wheezing. Bibasilar crackles. Cardiovascular: Positive S1, positive S2. Regular rate and rhythm. Abdomen: Positive bowel sounds in all 4 quadrants. Soft, nontender, nondistended. : Davies in place. Normal external genitalia. Rectal: Deferred. Skin: Warm, dry. Intact. Extremities: 2+ radial pulses bilaterally. No lower extremity edema. Neuro: Sedated. laboratory and microbiology Laboratory Tests 01/10/24 03:30 Test 01/10/24 03:30 Range/Units Serum Glucose 128 H 74-106 mg/dL Assessment/Plan Impression: Acute hypoxic respiratory failure On mechanical ventilator Sepsis due to liver abscess Possible MARCIANO in liver Chronic systolic heart failure CAD s/p PTCA with multiple stents and s/p defibrillator Distributive shock Metastatic colon cancer status post left colectomy Iron deficiency anemia Acute kidney injury due to shock Metabolic acidosis Lactic acidosis Events: Remains on vent support Currently on assist control with respiratory rate of 16, tidal volume 350, PEEP of 5, FiO2 of 30%. Taper FiO2 as tolerated ABG reviewed, compensated. Sedated on Fentanyl On Precedex drip. Tachypneic, RR of 40 BPM On pressors for hemodynamic support. On Levophed at 8 micrograms/minute Titrate to keep MAP above 65 mmHg/SBP above 90 mmHg. Continue antibiotics - meropenem Blood cultures show no growth Diurese w/ Lasix as tolerated Monitor renal function Potassium supplementation TPN for nutritional support Recommend trach for liberation from mechanical ventilator Obtain Surgery consult. Patient is s/p exploratory laparotomy S/p therapeutic bronchoscopy with RML BAL on 01/03 Labs and imaging reviewed. Rest of plan as noted below. Plan: s/p intubation on mechanical ventilator CXR image and report reviewed. Devices in place. Hypoinflation. ABG reviewed. Acidemia due to metabolic acidosis Assist control mode with respiratory rate of 16, tidal volume 350, PEEP of 5, FiO2 of 30%. Titrate FIO2 to keep O2 saturation above 92%. VAP bundle Daily ABG and CXR while intubated. Sedate for ventilatory synchrony On pressors for hemodynamic support. Titrate to keep MAP above 65 mmHg/SBP above 90 mmHg. Continue antibiotics. F/u cultures. Blood cultures no growth after 5 days. Sputum culture notable for Enterobacter cloacae. Monitor renal function Monitor ins/outs Diurese with Lasix BID Monitor electrolytes. Supplement as necessary. Monitor lactic acid due to lactic acidosis. Nutritional support. Accucheks, ISS. GI/DVT prophylaxis. Condition: Critical Prognosis: Poor given multiple comorbidities. Rest of plan per hospitalist and other consultants. A total of 35 minutes of critical care time was spent reviewing the patient record, examining the patient, making a diagnostic and therapeutic plan, discussing this plan with the medical personnel, following up on diagnostic studies and following the patient for clinical stability excluding any and all procedures. At least 50% of this time was spent in direct, [id number] contact. Thank you Dr. Heath for allowing me to participate in this patient's care. Further recommendations will depend on patient's clinical course. Please do not hesitate to contact me if you have any questions or concerns. This medical document was created using an electronic medical record system with [employer] dictation system. Although this document has been carefully reviewed, there may still be some phonetic and typographical errors. These areas are purely typographical due to imperfections of the software programs, and do not reflect any compromise in the patient's medical care. Dietary Evaluation Review Comments: 1) Advance pt diet when medically feasible to a Cardiac diet 2) Continue current plan of care Expected Outcomes/Goals: 1) F/U in 3-5 days Plan discussed with: Other (WALKER Coulter) Critical Care Time(min): 35 DAYSI DYKES MD Jan 10, 2024 21:27
[2024-01-10] MEDS: TPN PER PHARMACY IV NR (21:53)
[2024-01-11] VITALS (106 sets, daily range): BP systolic 81–165; BP diastolic 44–95; PULSE 70–139; RESP 9–31; TEMP 97.8–100.1; O2SAT 93–99
[2024-01-11 03:45] LABS: Basophils # (auto) 0.1 10 ^3/uL (0-0.2); Eosinophils # (auto) 0.2 10 ^3/uL (0-0.8); Lymphocytes # (auto) 1.2 10 ^3/uL (0.4-5.4); Monocytes # (auto) 1.4 10 ^3/uL (0-1.3)
[2024-01-11 03:48] LABS: Basophils % (auto) 0.6 % (0.0-2.0); Hematocrit 27.1 % (36.0-46.0); Hemoglobin 8.7 g/dL (12.2-16.2); Lymphocytes % (auto) 5.3 % (10.0-50.0); Mean Corpuscular Hemoglobin 25.2 pg (28.0-32.0); Mean Corpuscular Hgb Conc. 31.9 g/dL (32.0-36.0); Mean Corpuscular Volume 78.9 fL (80.0-100.0); Monocytes % (auto) 6.2 % (0.0-12.0); Neutrophils # (auto) 20.2 10 ^3/uL (1.6-8.6); Neutrophils % (auto) 86.9 % (37.0-80.0); Nucleated Red Blood Cells % 0.1 %; Platelet Count (auto) 479 10^3/uL (140-450); Red Blood Cells 3.44 10^6/uL (4.0-5.20); White Blood Cell 23.2 10^3/uL (4.4-10.8)
[2024-01-11 04:27] LABS: Red Cell Distribution Width 26.7 % (11.8-14.3)
[2024-01-11 04:32] LABS: Alanine Aminotransferase 90 U/L (7-40); Albumin 2.4 g/dL (3.2-4.8); Alkaline Phosphatase 319 U/L (46-116); Anion Gap 12 (5-15); Aspartate Aminotransferase 248 U/L (13-40); BUN/Creatinine Ratio 85.5 (10.0-20.0); Bilirubin, Total 3.5 mg/dL (0.2-1.0); Blood Urea Nitrogen 65 mg/dL (9-23); Calcium 8.4 mg/dL (8.7-10.4); Carbon Dioxide 26 mmol/L (20-31); Chloride 115 mmol/L (98-107); Glucose 139 mg/dL (74-106); Magnesium 2.2 mg/dL (1.6-2.6); Phosphorus 4.7 mg/dL (2.4-5.1); Potassium 3.7 mmol/L (3.5-5.1); Sodium 153 mmol/L (136-145); Total Protein 5.7 g/dL (5.7-8.2); Triglycerides 178 mg/dL (< 150)
[2024-01-11 05:12] LABS: Anisocytosis Moderate; Platelet Estimate Adequate
[2024-01-11 07:02] LABS: Base Excess -1.3 mmol/L (-2.0-3.0)
--- NOTE | 2024-01-11 09:58 | DVHPN2 ---
Progress Note Date Seen: Jan 11, 2024 Medical Necessity Reason Pt with a Central, PICC or Fol: Yes The following are medically ne: PICC Line, Davies Catheter Reason for davies catheter: Strict I&O Objective vital signs Vital Sign Date Time Temp Pulse Resp B/P (MAP) Pulse Ox O2 Delivery O2 Flow Rate FiO2 01/11/24 09:20 114 24 111/68 (82) 94 30 01/11/24 06:00 Mechanical Ventilator+ 01/11/24 04:00 98.8 98.8 Total Intake and Output 01/10/24 01/10/24 01/11/24 14:59 22:59 06:59 Intake Total 599.298 ml 675.668 ml 810.56 ml Output Total 500 ml 1075 ml Balance 599.298 ml 175.668 ml -264.44 ml medications Current Medications Medications Dose Ordered Sig/Saige Route Start Time Stop Time Status Last Admin Dose Admin Sodium Chloride 10 ml Q8HR IV 12/17/23 22:00 01/11/24 05:41 10 ML Midazolam HCl 50 ml @ 1 mls/hr Q24H IV 12/25/23 12:30 01/09/24 07:28 2 MLS/HR Nitroglycerin 0.4 mg Q5MINP PRN SL 12/25/23 16:00 Vasopressin 20 units/Sodium Chloride 100 ml @ 9 mls/hr Q11H7M IV 12/25/23 17:15 12/29/23 11:50 9 MLS/HR Phenylephrine HCl 250 ml @ 30 mls/hr Q8H20M IV 12/25/23 17:15 12/26/23 00:42 48.75 MLS/HR Epinephrine HCl 250 ml @ 7.5 mls/hr Q24H IV 12/25/23 18:30 Pantoprazole Sodium 40 mg DAILY IV 12/26/23 10:00 01/10/24 09:37 40 MG Ipratropium [place] 0.5 mg Q6HR NEB 12/27/23 18:00 Cancel Norepinephrine Bitartrate 32 mg/ Sodium Chloride 250 ml @ 0.938 mls/ hr Q24H IV 12/27/23 14:45 01/10/24 14:08 0.938 MLS/HR Amino Acids 0 ml @ 0 mls/hr PER PHARMACY IV 12/28/23 12:00 Diagnostic Test (Pha) 1 strip Q6HR 12/28/23 18:00 01/11/24 05:53 1 STRIP Insulin Human Regular FOLLOW SLIDING SCALE Q6HR SC 12/28/23 18:00 01/11/24 05:56 2 UNITS Dextrose 50 ml UD IV 12/28/23 13:00 Insulin Glargine 15 units DAILY@1000 SC 12/29/23 12:15 01/10/24 09:38 15 UNITS Meropenem 50 ml @ 17 mls/hr Q8HR IV 01/03/24 22:00 01/11/24 05:39 17 MLS/HR Fentanyl Citrate 250 ml @ 2.5 mls/hr Q24H IV 01/03/24 17:15 01/11/24 01:11 25 MLS/HR Furosemide 40 mg TID IV 01/05/24 14:00 01/11/24 05:39 40 MG Sodium Chloride 10 ml QSHIFT@ IV 01/05/24 22:00 01/10/24 09:37 10 ML Dexmedetomidine HCl 400 mcg/ Dextrose 100 ml @ 3.91 mls/hr Q24H IV 01/09/24 11:45 01/11/24 08:56 7.82 MLS/HR Metoclopramide HCl 10 mg Q8HR GT 01/10/24 14:00 01/11/24 05:41 10 MG Fat Emulsion Intravenous 50 ml/ Potassium Acetate 30 meq/Potassium Phosphate 22 meq/ Magnesium Sulfate 6 meq/ Multivitamins 10 ml/Amino Acids/ Dextrose/Purified Water 1,231.5 ml @ 51 mls/hr Q24H9M IV 01/10/24 22:00 01/11/24 21:59 01/10/24 21:53 51 MLS/HR Fat Emulsion Intravenous 50 ml/ Potassium Acetate 60 meq/Magnesium Sulfate 6 meq/ Multivitamins 10 ml/Amino Acids/ Dextrose/Purified Water 1,266.5 ml @ 53 mls/hr [id number] IV 01/11/24 22:00 01/12/24 21:59 laboratory and microbiology Laboratory Tests 01/11/24 03:10 Test 01/11/24 03:10 Range/Units Serum Glucose 139 H 74-106 mg/dL Problem List/Assessment/Plan Problem List/Assessment/Plan 01/06/[address] Aditi BUCKLEY, ABDOMEN APPEARS TO BE TENDER IN THE LEFT LOWER QUADRANT, WOUND IS CLEAN AND WELL APPROXIMATED, DRAINAGE FROM LOWER PORTION OF MIDLINE WOUND.AWAITING ir intervention 01/07/24 essentially unchanged, continues hypotensive with leukocytosis, abdomen "full", no BM or flatus reported, spoke to interventional radiologist, he will proceed with drainage of pelvic fluid collection via transgluteal approach 01/08/24 slightly improved, discussed pelvic fluid drainage with radiologist,abdomen soft, non distended, continue current treatments 01/09/24 slightly improved, abdomen less tense, wound clean ,drainage clear, good urine output, less pressors requirement 01/10/24 wbc slightly better, wound ok, abdomen soft and non distended, no BM, will add reglan, once she passes flatus NG tube can be DC'd 01/11/24 'S QUESTIONS ANSWERED, SHE CONTINUES UNCHANGED, WOUND CLEAN ,ABDOMEN NON DISTENDED Plan discussed with: Spouse Dietary Evaluation Review Comments: 1) Advance pt diet when medically feasible to a Cardiac diet 2) Continue current plan of care Expected Outcomes/Goals: 1) F/U in 3-5 days ASPEN EUBANKS MD Jan 11, 2024 09:58
--- NOTE | 2024-01-11 10:07 | DVHPN2 ---
Progress Note - Dictate Date Seen: Jan 11, 2024 Medical Necessity Reason Pt with a Central, PICC or Fol: Yes The following are medically ne: PICC Line, Davies Catheter Reason for davies catheter: Strict I&O Subjective Patient was seen and examined at bedside. She is sedated, intubated on mechanical ventilator. s/p pelvic fluid aspiration Patient placed on CPAP trial on settings 8/[address] Kitchen. Patient has +pitting edema throughout. Antibiotic status: Vancomycin HCl 200 ml @ 200 mls/hr - [Started 12/31 - 01/07] Meropenem 50 ml @ 17 mls/hr - [Started - 01/02 - Ongoing] vital signs Vital Sign Date Time Temp Pulse Resp B/P (MAP) Pulse Ox O2 Delivery O2 Flow Rate FiO2 01/11/24 08:56 143/81 01/11/24 07:30 76 13 95 01/11/24 07:25 30 01/11/24 06:00 Mechanical Ventilator+ 01/11/24 04:00 98.8 98.8 Total Intake and Output 01/10/24 01/10/24 01/11/24 15:00 23:00 07:00 Intake Total 613.041 ml 688.80 ml 810.56 ml Output Total 500 ml 1075 ml Balance 613.041 ml 188.80 ml -264.44 ml medications Current Medications Medications Dose Ordered Sig/Saige Route Start Time Stop Time Status Last Admin Dose Admin Sodium Chloride 10 ml Q8HR IV 12/17/23 22:00 01/11/24 05:41 10 ML Midazolam HCl 50 ml @ 1 mls/hr Q24H IV 12/25/23 12:30 01/09/24 07:28 2 MLS/HR Nitroglycerin 0.4 mg Q5MINP PRN SL 12/25/23 16:00 Vasopressin 20 units/Sodium Chloride 100 ml @ 9 mls/hr Q11H7M IV 12/25/23 17:15 12/29/23 11:50 9 MLS/HR Phenylephrine HCl 250 ml @ 30 mls/hr Q8H20M IV 12/25/23 17:15 12/26/23 00:42 48.75 MLS/HR Epinephrine HCl 250 ml @ 7.5 mls/hr Q24H IV 12/25/23 18:30 Pantoprazole Sodium 40 mg DAILY IV 12/26/23 10:00 01/10/24 09:37 40 MG Ipratropium [place] 0.5 mg Q6HR NEB 12/27/23 18:00 Cancel Norepinephrine Bitartrate 32 mg/ Sodium Chloride 250 ml @ 0.938 mls/ hr Q24H IV 12/27/23 14:45 01/10/24 14:08 0.938 MLS/HR Amino Acids 0 ml @ 0 mls/hr PER PHARMACY IV 12/28/23 12:00 Diagnostic Test (Pha) 1 strip Q6HR 12/28/23 18:00 01/11/24 05:53 1 STRIP Insulin Human Regular FOLLOW SLIDING SCALE Q6HR SC 12/28/23 18:00 01/11/24 05:56 2 UNITS Dextrose 50 ml UD IV 12/28/23 13:00 Insulin Glargine 15 units DAILY@1000 SC 12/29/23 12:15 01/10/24 09:38 15 UNITS Meropenem 50 ml @ 17 mls/hr Q8HR IV 01/03/24 22:00 01/11/24 05:39 17 MLS/HR Fentanyl Citrate 250 ml @ 2.5 mls/hr Q24H IV 01/03/24 17:15 01/11/24 01:11 25 MLS/HR Furosemide 40 mg TID IV 01/05/24 14:00 01/11/24 05:39 40 MG Sodium Chloride 10 ml QSHIFT@10,22 IV 01/05/24 22:00 01/10/24 09:37 10 ML Dexmedetomidine HCl 400 mcg/ Dextrose 100 ml @ 3.91 mls/hr Q24H IV 01/09/24 11:45 01/11/24 08:56 7.82 MLS/HR Metoclopramide HCl 10 mg Q8HR GT 01/10/24 14:00 01/11/24 05:41 10 MG Fat Emulsion Intravenous 50 ml/ Potassium Acetate 30 meq/Potassium Phosphate 22 meq/ Magnesium Sulfate 6 meq/ Multivitamins 10 ml/Amino Acids/ Dextrose/Purified Water 1,231.5 ml @ 51 mls/hr Q24H9M IV 01/10/24 22:00 01/11/24 21:59 01/10/24 21:53 51 MLS/HR objective General.: Patient lying in bed in medical ICU. Sedated, intubated on mechanical ventilator. Head: Normocephalic, atraumatic. Eyes: PERRLA. Ears: Normal external anatomy. Throat: Endotracheal tube and orogastric tube in place. Neck: Supple, trachea midline. Chest: Transmitted breath sounds bilaterally. Decreased air entry bilaterally. No wheezing. Bibasilar crackles. Cardiovascular: Positive S1, positive S2. Regular rate and rhythm. Abdomen: Positive bowel sounds in all 4 quadrants. Soft, nontender, nondistended. : Davies in place. Normal external genitalia. Rectal: Deferred. Skin: Warm, dry. Intact. Extremities: 2+ radial pulses bilaterally. +4 pitting edema. Neuro: Sedated. laboratory and microbiology Laboratory Tests 01/11/24 03:10 Test 01/11/24 03:10 Range/Units Serum Glucose 139 H 74-106 mg/dL Assessment/Plan Patient is a 64-year-old female presents to the hospital with: septic shock vs distributive shock leucocytosis ? stress induced vs sepsis Ventilator associated Pneumonia : [place] large bowel obstruction s/p colectomy s/p end to end anastomosis 12/24 possible colon cancer with mets ascites: malignant vs post surgical vs infection Liver mets acute hypoxic respiratory failure on mechanical ventilation CHF anasarca Recommendations: there is no clear source of infection, will stop antibiotics meropenem and monitor. leucocytosis is possibly secondary to mets in liver WBC is 23.2 on levaphed ( minimal) Today chest x-ray reviewed 01/09 : Left basilar atelectasis or pneumonia and Pulmonary venous congestion. plevic fluid cultures are neg 01/06: body fluid cultures : few WBC seen , no organisms 01/05, Blood culture: No growth 01/05, Urine culture: No growth 01/04, Aerobic culture: No growth 12/29 : sputum culture notable for Enterobacter cloacae. CT pelvic wo contrast done on 01/06 : CT guided needle/catheter placement into the low pelvic fluid collection with aspiration of 1-2 mL of yellow serous fluid. No drain was placed. overall prognosis is very poor with mets, Crit time 35 minutes, discussed with primary Thank you for the consult and for giving an opportunity to take care of this patient. Dietary Evaluation Review Comments: 1) Advance pt diet when medically feasible to a Cardiac diet 2) Continue current plan of care Expected Outcomes/Goals: 1) F/U in 3-5 days Plan discussed with: JASPREET Galvan MD Jan 11, 2024 10:06
--- NOTE | 2024-01-11 10:11 | DVHPN2 ---
Subjective The patient seen and examined at bedside. No change overnight. The patient remained intubated. Reviewed: Care Plan, H&P, Labs, Medications, Previous Orders, Radiology Changes from previous H/P or p: No Changes Eyes: No Pain, No Vision change, No Conjunctivae inflammation, No Eyelid inflammation, No Other, No Redness ENT: No Ear pain, No Ear discharge, No Nose pain, No Nose discharge, No Nose congestion, No Mouth pain, No Mouth swelling, No Throat pain, No Throat swelling, No Other Cardiovascular: No Chest Pain, No Palpitations, No Orthopnea, No Paroxysmal Noc. Dyspnea, No Edema, No Lt Headedness, No Other Respiratory: Cough, Dry, Shortness of breath Gastrointestinal: Nausea; No Vomiting; Abdominal Pain; No Diarrhea, No Constipation, No Melena, No Hematochezia, No Other Genitourinary: Dysuria; No Frequency, No Incontinence, No Hematuria, No Retention, No Other Musculoskeletal: No other, No neck pain, No shoulder pain, No arm pain, No back pain, No hand pain, No leg pain, No foot pain Skin: No Rash, No Lesions, No Jaundice, No Bruising, No Other Objective Vitals Vital Signs Date Time Temp Pulse Resp B/P (MAP) Pulse Ox O2 Delivery O2 Flow Rate FiO2 01/11/24 09:20 114 24 111/68 (82) 94 30 01/11/24 06:00 Mechanical Ventilator+ 01/11/24 04:00 98.8 98.8 Intake/Output Intake and Output 01/11/24 07:00 Intake Total 2112.401 ml Output Total 1575 ml Balance 537.401 ml Intake Oral 120 ml IV Total 1992.401 ml Output Urine Total 1575 ml General Appearance: Other (sedated and intubated) HEENT: PERRLA Lungs: Clear to auscultation Cardiovascular: Regular rate, Normal S1, Normal S2 Abdomen: Soft, Other (noo bowel sounds) Extremities: Other (edema) Neuro: Other (sedated and ventilated/has cough and gag reflex) Medications Current Medications Medications Dose Ordered Sig/Saige Route Start Time Stop Time Status Last Admin Dose Admin Sodium Chloride 10 ml Q8HR IV 12/17/23 22:00 01/11/24 05:41 10 ML Midazolam HCl 50 ml @ 1 mls/hr Q24H IV 12/25/23 12:30 01/09/24 07:28 2 MLS/HR Nitroglycerin 0.4 mg Q5MINP PRN SL 12/25/23 16:00 Vasopressin 20 units/Sodium Chloride 100 ml @ 9 mls/hr Q11H7M IV 12/25/23 17:15 12/29/23 11:50 9 MLS/HR Phenylephrine HCl 250 ml @ 30 mls/hr Q8H20M IV 12/25/23 17:15 12/26/23 00:42 48.75 MLS/HR Epinephrine HCl 250 ml @ 7.5 mls/hr Q24H IV 12/25/23 18:30 Pantoprazole Sodium 40 mg DAILY IV 12/26/23 10:00 01/10/24 09:37 40 MG Ipratropium [place] 0.5 mg Q6HR NEB 12/27/23 18:00 Cancel Norepinephrine Bitartrate 32 mg/ Sodium Chloride 250 ml @ 0.938 mls/ hr Q24H IV 12/27/23 14:45 01/10/24 14:08 0.938 MLS/HR Amino Acids 0 ml @ 0 mls/hr PER PHARMACY IV 12/28/23 12:00 Diagnostic Test (Pha) 1 strip Q6HR 12/28/23 18:00 01/11/24 05:53 1 STRIP Insulin Human Regular FOLLOW SLIDING SCALE Q6HR SC 12/28/23 18:00 01/11/24 05:56 2 UNITS Dextrose 50 ml UD IV 12/28/23 13:00 Insulin Glargine 15 units DAILY@1000 SC 12/29/23 12:15 01/10/24 09:38 15 UNITS Meropenem 50 ml @ 17 mls/hr Q8HR IV 01/03/24 22:00 01/11/24 05:39 17 MLS/HR Fentanyl Citrate 250 ml @ 2.5 mls/hr Q24H IV 01/03/24 17:15 01/11/24 01:11 25 MLS/HR Furosemide 40 mg TID IV 01/05/24 14:00 01/11/24 05:39 40 MG Sodium Chloride 10 ml QSHIFT@10,22 IV 01/05/24 22:00 01/10/24 09:37 10 ML Dexmedetomidine HCl 400 mcg/ Dextrose 100 ml @ 3.91 mls/hr Q24H IV 01/09/24 11:45 01/11/24 08:56 7.82 MLS/HR Metoclopramide HCl 10 mg Q8HR GT 01/10/24 14:00 01/11/24 05:41 10 MG Fat Emulsion Intravenous 50 ml/ Potassium Acetate 30 meq/Potassium Phosphate 22 meq/ Magnesium Sulfate 6 meq/ Multivitamins 10 ml/Amino Acids/ Dextrose/Purified Water 1,231.5 ml @ 51 mls/hr Q24H9M IV 01/10/24 22:00 01/11/24 21:59 01/10/24 21:53 51 MLS/HR Fat Emulsion Intravenous 50 ml/ Potassium Acetate 60 meq/Magnesium Sulfate 6 meq/ Multivitamins 10 ml/Amino Acids/ Dextrose/Purified Water 1,266.5 ml @ 53 mls/hr [id number] IV 01/11/24 22:00 01/12/24 21:59 Laboratory Results Laboratory Tests 01/11/24 03:10 Chemistry Test 01/11/24 03:10 Albumin 2.4 g/dL (3.2-4.8) L Calcium Level 8.4 mg/dL (8.7-10.4) L Magnesium Level 2.2 mg/dL (1.6-2.6) Phosphorus Level 4.7 mg/dL (2.4-5.1) Total Protein 5.7 g/dL (5.7-8.2) Lipid panel Test 01/11/24 03:10 Triglycerides Level 178 mg/dL (< 150) H LFT Test 01/11/24 03:10 Alanine Aminotransferase (ALT) 90 U/L (7-40) H Alkaline Phosphatase 319 U/L (46-116) H Aspartate Amino Transferase (AST) 248 U/L (13-40) H Total Bilirubin 3.5 mg/dL (0.2-1.0) H Urinalysis Test 12/26/23 01:30 Urine Color Yellow (Yellow) Urine Clarity Turbid (Clear) H Urine pH 5.5 (5.0-9.0) Urine Specific [place] 1.025 (1.001-1.035) Urine Protein 1+ (Negative) H Urine Ketones Trace (Negative) Urine Blood 3+ /uL (Negative) H Urine Nitrite Negative (Negative) Urine Bilirubin Negative (Negative) Urine Urobilinogen Normal mg/dL (Negative) Urine Leukocyte Esterase Negative /uL (Negative) Urine RBC 87 /hpf (0 - 4) Urine WBC 6 /hpf (0 - 5) Urine Squamous Epithelial Cells None seen /hpf (<5) Urine Bacteria Few /hpf (None Seen) H Urine Hyaline Casts Mod /lpf (0 - 2) Urine Granular Casts Few /lpf (0) Urine Mucus Few (None Seen) Urine Yeast (Budding) Occasional /hpf (None Urine Creatinine 64.14 mg/dL (30.0-125.0) Urine Protein/Creatinine Ratio 1.97 Urine Sodium 35 mmol/L (40-220) L Urine Glucose Normal mg/dL (Normal) Urine Total Protein 126.3 mg/dL (1-14) H Blood Gas Results Test 01/11/24 06:39 Arterial Blood pH 7.380 (7.350-7.450) FiO2 % 30.0 Microbiology Microbiology Date/Time Source Procedure Growth Status 01/07/24 15:20 Aspirate Gram Stain - Final Resulted 01/07/24 15:20 Aspirate Body Fluid Culture - Preliminary Resulted 01/06/24 16:24 Blood Blood Culture - Preliminary NO GROWTH AFTER 72 HOURS OF INCUBATION. Resulted 01/06/24 14:50 Urine - [place] Urine Culture - Final Complete 01/05/24 22:00 Catheter Tip Aerobic Culture - Final Complete 12/30/23 20:08 Sputum Expectorated Sputum Gram Stain - Final Complete 12/30/23 20:08 Respiratory Culture - Final Enterobacter cloacae Complete 12/18/23 13:03 Stool Stool Culture - Final Complete 12/18/23 13:03 Stool Shiga Toxin I & II - Final Complete Labs and/or images reviewed: Labs reviewed by me Assessment/Plan Assessment/Plan Acute hypoxic respiratory failure, on mechanical ventilator did not tolerate cpap trial still with enormous secretions status post bronchoscopy. Sepsis due to liver abscess Chronic systolic heart failure CAD s/p PTCA with multiple stents and s/p defibrillator Distributive shock Metastatic colon cancer to liver status post left colectomy Iron deficiency anemia Acute kidney injury due to shock Metabolic acidosis Lactic acidosis Continuing current management with ventilation support. Continuing with imipenem and vancomycin IV Blood culture and urine culture remained negative Discussed with regarding to IR procedure. He finally give consent to aspirate the fluid from the pelvic area. Waiting for Interventional radiologist. I also discussed with the regarding to potential PEG and Trach and long- term hospital placement. Continuing TPN. Continuing with vasopressor. Prognosis guarded Will dw regarding to PEG and Trach soon. Plan discussed with: Other (Rn) Date of Service: Jan 11, 2024 Billing Provider: JAVIER ANNE MD Common Visit Codes: [id number] INP/OBS CARE(HIGH) JAVIER ANNE MD Jan 11, 2024 10:11
--- NOTE | 2024-01-11 12:02 | DVH ---
CHEST RADIOGRAPH Indication: PT IS INTUBATED Technique: Single frontal view of the chest was obtained COMPARISON: XY CHEST XRAY 1 VIEW on DOS: 01/10/24, XY CHEST PORTABLE on DOS: 01/07/24, XY CHEST SPIKE BLE on DOS: 01/06/24 FINDINGS: Lines and Tubes: Endotracheal tube, enteric catheter and left chest wall AICD in satisfactory positio n. Lungs: Low lung volumes. Pleura: No effusion. No pneumothorax. Cardiomediastinal contours: Unremarkable Bones: Unremarkable IMPRESSION: Lines and tubes in satisfactory position. No significant interval change.
[2024-01-11] MEDS: TPN PER PHARMACY IV NR (21:19)
--- NOTE | 2024-01-11 22:55 | CODING ---
Date of Service: Dec 25, 2023 Billing Provider: NATE SWARTZ MD Common Visit Codes: [id number] INP/OBS CARE(HIGH) NATE SWARTZ MD Jan 11, 2024 22:55
--- NOTE | 2024-01-11 22:55 | CODING ---
Date of Service: Dec 24, 2023 Billing Provider: NATE SWARTZ MD Common Visit Codes: [id number] INP/OBS CARE(HIGH) NATE SWARTZ MD Jan 11, 2024 22:55
--- NOTE | 2024-01-11 22:56 | DVHPN2 ---
Progress Note - Dictate Date Seen: Jan 11, 2024 Medical Necessity Reason Pt with a Central, PICC or Fol: Yes The following are medically ne: PICC Line, Davies Catheter Reason for davies catheter: Strict I&O Subjective Patient seen and examined at bedside. Sedated, intubated on mechanical ventilator. Overnight events reviewed. vital signs Vital Sign Date Time Temp Pulse Resp B/P (MAP) Pulse Ox O2 Delivery O2 Flow Rate FiO2 01/11/24 22:28 130/82 01/11/24 22:08 120 27 95 30 01/11/24 20:00 Mechanical Ventilator+ 01/11/24 16:00 99.1 99.1 Total Intake and Output 01/10/24 01/10/24 01/11/24 15:00 23:00 07:00 Intake Total 613.041 ml 688.80 ml 810.56 ml Output Total 500 ml 1075 ml Balance 613.041 ml 188.80 ml -264.44 ml medications Current Medications Medications Dose Ordered Sig/Saige Route Start Time Stop Time Status Last Admin Dose Admin Sodium Chloride 10 ml Q8HR IV 12/17/23 22:00 01/11/24 21:35 10 ML Midazolam HCl 50 ml @ 1 mls/hr Q24H IV 12/25/23 12:30 01/09/24 07:28 2 MLS/HR Nitroglycerin 0.4 mg Q5MINP PRN SL 12/25/23 16:00 Vasopressin 20 units/Sodium Chloride 100 ml @ 9 mls/hr Q11H7M IV 12/25/23 17:15 12/29/23 11:50 9 MLS/HR Phenylephrine HCl 250 ml @ 30 mls/hr Q8H20M IV 12/25/23 17:15 12/26/23 00:42 48.75 MLS/HR Epinephrine HCl 250 ml @ 7.5 mls/hr Q24H IV 12/25/23 18:30 Pantoprazole Sodium 40 mg DAILY IV 12/26/23 10:00 01/11/24 10:54 40 MG Ipratropium [place] 0.5 mg Q6HR NEB 12/27/23 18:00 Cancel Norepinephrine Bitartrate 32 mg/ Sodium Chloride 250 ml @ 0.938 mls/ hr Q24H IV 12/27/23 14:45 01/10/24 14:08 0.938 MLS/HR Amino Acids 0 ml @ 0 mls/hr PER PHARMACY IV 12/28/23 12:00 Diagnostic Test (Pha) 1 strip Q6HR 12/28/23 18:00 01/11/24 18:14 1 STRIP Insulin Human Regular FOLLOW SLIDING SCALE Q6HR SC 12/28/23 18:00 01/11/24 12:18 2 UNITS Dextrose 50 ml UD IV 12/28/23 13:00 Insulin Glargine 15 units DAILY@1000 SC 12/29/23 12:15 01/11/24 10:57 15 UNITS Fentanyl Citrate 250 ml @ 2.5 mls/hr Q24H IV 01/03/24 17:15 01/11/24 21:28 22.5 MLS/HR Furosemide 40 mg TID IV 01/05/24 14:00 01/11/24 21:15 40 MG Sodium Chloride 10 ml QSHIFT@10,22 IV 01/05/24 22:00 01/11/24 21:36 10 ML Dexmedetomidine HCl 400 mcg/ Dextrose 100 ml @ 3.91 mls/hr Q24H IV 01/09/24 11:45 01/11/24 21:34 7.82 MLS/HR Metoclopramide HCl 10 mg Q8HR GT 01/10/24 14:00 01/11/24 21:41 10 MG Fat Emulsion Intravenous 50 ml/ Potassium Acetate 60 meq/Magnesium Sulfate 6 meq/ Multivitamins 10 ml/Amino Acids/ Dextrose/Purified Water 1,266.5 ml @ 53 mls/hr [id number] IV 01/11/24 22:00 01/12/24 21:59 01/11/24 21:19 53 MLS/HR objective Gen.: Patient lying in bed in medical ICU. Sedated, intubated on mechanical ventilator. Head: Normocephalic, atraumatic. Eyes: PERRLA. Ears: Normal external anatomy. Throat: Endotracheal tube and orogastric tube in place. Neck: Supple, trachea midline. Chest: Transmitted breath sounds bilaterally. Decreased air entry bilaterally. No wheezing. Bibasilar crackles. Cardiovascular: Positive S1, positive S2. Regular rate and rhythm. Abdomen: Positive bowel sounds in all 4 quadrants. Soft, nontender, nondistended. : Davies in place. Normal external genitalia. Rectal: Deferred. Skin: Warm, dry. Intact. Extremities: 2+ radial pulses bilaterally. No lower extremity edema. Neuro: Sedated. laboratory and microbiology Laboratory Tests 01/11/24 03:10 Test 01/11/24 03:10 Range/Units Serum Glucose 139 H 74-106 mg/dL Assessment/Plan Impression: Acute hypoxic respiratory failure On mechanical ventilator Sepsis due to liver abscess Possible MARCIANO in liver Chronic systolic heart failure CAD s/p PTCA with multiple stents and s/p defibrillator Distributive shock Metastatic colon cancer status post left colectomy Iron deficiency anemia Acute kidney injury due to shock Metabolic acidosis Lactic acidosis Events: Remains on vent support Currently on assist control with respiratory rate of 16, tidal volume 350, PEEP of 5, FiO2 of 30%. Taper FiO2 as tolerated ABG reviewed, compensated. Sedated on Fentanyl On Precedex drip. Off pressors, hemodynamically stable. Completed antibiotics. Diurese w/ Lasix as tolerated Monitor renal function TPN for nutritional support CPAP with PS 12, PEEP 5 Pulling VT 800s, RR 12. Stopped meropenem Continue CPAP for exercise. Recommend trach for liberation from mechanical ventilator Surgery recs appreciated. Protonix for GI prophylaxis Patient is s/p exploratory laparotomy S/p therapeutic bronchoscopy with RML BAL on 01/03 Labs and imaging reviewed. Rest of plan as noted below. Plan: s/p intubation on mechanical ventilator CXR image and report reviewed. Devices in place. Hypoinflation. ABG reviewed. Acidemia due to metabolic acidosis Assist control mode with respiratory rate of 16, tidal volume 350, PEEP of 5, FiO2 of 30%. Titrate FIO2 to keep O2 saturation above 92%. VAP bundle Daily ABG and CXR while intubated. Sedate for ventilatory synchrony Pressors as necessary for hemodynamic support - currently off Titrate to keep MAP above 65 mmHg/SBP above 90 mmHg. Completed antibiotics. F/u cultures. Blood cultures no growth after 5 days. Sputum culture notable for Enterobacter cloacae. Monitor renal function Monitor ins/outs Diurese with Lasix BID Monitor electrolytes. Supplement as necessary. Monitor lactic acid due to lactic acidosis. Nutritional support. Accucheks, ISS. GI/DVT prophylaxis. Condition: Critical Prognosis: Poor given multiple comorbidities. Rest of plan per hospitalist and other consultants. A total of 35 minutes of critical care time was spent reviewing the patient record, examining the patient, making a diagnostic and therapeutic plan, discussing this plan with the medical personnel, following up on diagnostic studies and following the patient for clinical stability excluding any and all procedures. At least 50% of this time was spent in direct, [id number] contact. Thank you Dr. Heath for allowing me to participate in this patient's care. Further recommendations will depend on patient's clinical course. Please do not hesitate to contact me if you have any questions or concerns. This medical document was created using an electronic medical record system with [employer] dictation system. Although this document has been carefully reviewed, there may still be some phonetic and typographical errors. These areas are purely typographical due to imperfections of the software programs, and do not reflect any compromise in the patient's medical care. Dietary Evaluation Review Comments: 1) Advance pt diet when medically feasible to a Cardiac diet 2) Continue current plan of care Expected Outcomes/Goals: 1) F/U in 3-5 days Plan discussed with: Other (WALKER Coburn) Critical Care Time(min): 35 DAYSI DYKES MD Jan 11, 2024 22:56
[2024-01-12] VITALS (110 sets, daily range): BP systolic 83–141; BP diastolic 40–91; PULSE 74–134; RESP 14–42; TEMP 97.1–99.3; O2SAT 93–100
[2024-01-12 04:26] LABS: Mean Corpuscular Hgb Conc. 30.4 g/dL (32.0-36.0)
[2024-01-12 04:28] LABS: Hemoglobin 9.1 g/dL (12.2-16.2); Mean Corpuscular Hemoglobin 24.1 pg (28.0-32.0); Mean Corpuscular Volume 79.2 fL (80.0-100.0); Platelet Count (auto) 595 10^3/uL (140-450); Red Blood Cells 3.79 10^6/uL (4.0-5.20)
[2024-01-12 04:39] LABS: Basophils % (manual) 0 (0.0-2.0); Blast Cells 0; Eosinophils % (manual) 0 (0-7); Metamyelocytes % 0; Promyelocytes % 0; Reactive Lymphocytes 0
[2024-01-12 04:50] LABS: Alanine Aminotransferase 99 U/L (7-40); Albumin 2.5 g/dL (3.2-4.8); Alkaline Phosphatase 362 U/L (46-116); Anion Gap 12 (5-15); Aspartate Aminotransferase 273 U/L (13-40); BUN/Creatinine Ratio 84.9 (10.0-20.0); Blood Urea Nitrogen 62 mg/dL (9-23); Calcium 8.4 mg/dL (8.7-10.4); Carbon Dioxide 27 mmol/L (20-31); Chloride 113 mmol/L (98-107); Glucose 128 mg/dL (74-106); Magnesium 2.3 mg/dL (1.6-2.6); Potassium 3.5 mmol/L (3.5-5.1); Sodium 152 mmol/L (136-145)
[2024-01-12 04:51] LABS: Bilirubin, Total 4.1 mg/dL (0.2-1.0); Phosphorus 4.6 mg/dL (2.4-5.1); Total Protein 6.1 g/dL (5.7-8.2)
--- NOTE | 2024-01-12 04:59 | DVH ---
CHEST RADIOGRAPH Indication: ACUTE RESPIRATORY FAILURE Technique: Single frontal view of the chest was obtained COMPARISON: XY CHEST PORTABLE on DOS: 01/11/24, XY CHEST XRAY 1 VIEW on DOS: 01/10/24, XY CHEST SPIKE BLE on DOS: 01/07/24, XY CHEST PORTABLE on DOS: 01/11/24 FINDINGS: Lines and Tubes: Endotracheal tube, enteric catheter and left chest wall AICD in satisfactory positio n. Lungs: Low lung volumes. Pleura: No effusion. No pneumothorax. Cardiomediastinal contours: Unremarkable Bones: Unremarkable IMPRESSION: Lines and tubes in satisfactory position. No significant interval change.
[2024-01-12 07:01] LABS: Band Neutrophils % (manual) 2; Lymphocytes % (manual) 10 (10.0-50.0); Monocytes % (manual) 6 (0-12); Myelocytes % 1
[2024-01-12 07:02] LABS: Anisocytosis Moderate; Giant Platelets Few; Hypochromia Slight; Large Platelets MODERATE; Platelet Estimate Increased; Stomatocytes Few; Target Cell FEW
--- NOTE | 2024-01-12 08:40 | DVHPN2 ---
Progress Note - Dictate Date Seen: Jan 12, 2024 Medical Necessity Reason Pt with a Central, PICC or Fol: Yes The following are medically ne: PICC Line, Davies Catheter Reason for davies catheter: Strict I&O Subjective Patient was seen and examined at bedside. She is sedated, intubated on mechanical ventilator. s/p pelvic fluid aspiration not tolerated CPAP trial Antibiotic status: Vancomycin HCl 200 ml @ 200 mls/hr - [Started 12/31 - 01/07] Meropenem 50 ml @ 17 mls/hr - [Started - 01/02 - stopped] vital signs Vital Sign Date Time Temp Pulse Resp B/P (MAP) Pulse Ox O2 Delivery O2 Flow Rate FiO2 01/12/24 06:15 95 01/12/24 06:15 30 01/12/24 06:15 20 95 Mechanical Ventilator+ 01/12/24 05:16 103/58 01/12/24 04:00 98.5 98.5 Total Intake and Output 01/11/24 01/11/24 01/12/24 15:00 23:00 07:00 Intake Total 673.769 ml 751.519 ml 652.793 ml Output Total 1225 ml 1025 ml Balance 673.769 ml -473.481 ml -372.207 ml medications Current Medications Medications Dose Ordered Sig/Saige Route Start Time Stop Time Status Last Admin Dose Admin Sodium Chloride 10 ml Q8HR IV 12/17/23 22:00 01/12/24 05:16 10 ML Midazolam HCl 50 ml @ 1 mls/hr Q24H IV 12/25/23 12:30 01/09/24 07:28 2 MLS/HR Nitroglycerin 0.4 mg Q5MINP PRN SL 12/25/23 16:00 Vasopressin 20 units/Sodium Chloride 100 ml @ 9 mls/hr Q11H7M IV 12/25/23 17:15 12/29/23 11:50 9 MLS/HR Phenylephrine HCl 250 ml @ 30 mls/hr Q8H20M IV 12/25/23 17:15 12/26/23 00:42 48.75 MLS/HR Epinephrine HCl 250 ml @ 7.5 mls/hr Q24H IV 12/25/23 18:30 Pantoprazole Sodium 40 mg DAILY IV 12/26/23 10:00 01/11/24 10:54 40 MG Ipratropium [place] 0.5 mg Q6HR NEB 12/27/23 18:00 Cancel Norepinephrine Bitartrate 32 mg/ Sodium Chloride 250 ml @ 0.938 mls/ hr Q24H IV 12/27/23 14:45 01/10/24 14:08 0.938 MLS/HR Amino Acids 0 ml @ 0 mls/hr PER PHARMACY IV 12/28/23 12:00 Diagnostic Test (Pha) 1 strip Q6HR 12/28/23 18:00 01/12/24 06:24 1 STRIP Insulin Human Regular FOLLOW SLIDING SCALE Q6HR SC 12/28/23 18:00 01/12/24 06:25 2 UNITS Dextrose 50 ml UD IV 12/28/23 13:00 Insulin Glargine 15 units DAILY@1000 SC 12/29/23 12:15 01/11/24 10:57 15 UNITS Fentanyl Citrate 250 ml @ 2.5 mls/hr Q24H IV 01/03/24 17:15 01/12/24 05:16 27.5 MLS/HR Furosemide 40 mg TID IV 01/05/24 14:00 01/12/24 05:08 40 MG Sodium Chloride 10 ml QSHIFT@10,22 IV 01/05/24 22:00 01/11/24 21:36 10 ML Dexmedetomidine HCl 400 mcg/ Dextrose 100 ml @ 3.91 mls/hr Q24H IV 01/09/24 11:45 01/12/24 05:13 11.73 MLS/HR Metoclopramide HCl 10 mg Q8HR GT 01/10/24 14:00 01/12/24 05:16 10 MG Fat Emulsion Intravenous 50 ml/ Potassium Acetate 60 meq/Magnesium Sulfate 6 meq/ Multivitamins 10 ml/Amino Acids/ Dextrose/Purified Water 1,266.5 ml @ 53 mls/hr [id number] IV 01/11/24 22:00 01/12/24 21:59 01/11/24 21:19 53 MLS/HR objective General.: Patient lying in bed in medical ICU. Sedated, intubated on mechanical ventilator. Head: Normocephalic, atraumatic. Eyes: PERRLA. Ears: Normal external anatomy. Throat: Endotracheal tube and orogastric tube in place. Neck: Supple, trachea midline. Chest: Transmitted breath sounds bilaterally. Decreased air entry bilaterally. No wheezing. Bibasilar crackles. Cardiovascular: Positive S1, positive S2. Regular rate and rhythm. Abdomen: Positive bowel sounds in all 4 quadrants. Soft, nontender, nondistended. : Davies in place. Normal external genitalia. Rectal: Deferred. Skin: Warm, dry. Intact. Extremities: 2+ radial pulses bilaterally. +4 pitting edema. Neuro: Sedated. laboratory and microbiology Laboratory Tests 01/12/24 03:55 Test 01/12/24 03:55 Range/Units Serum Glucose 128 H 74-106 mg/dL Assessment/Plan Patient is a 64-year-old female presents to the hospital with: septic shock vs distributive shock : resolved leucocytosis ? stress induced vs sepsis vs reactive Ventilator associated Pneumonia : [place] large bowel obstruction s/p colectomy s/p end to end anastomosis 12/24 possible colon cancer with mets ascites: malignant vs post surgical vs infection Liver mets acute hypoxic respiratory failure on mechanical ventilation CHF anasarca Recommendations: off Meropenem, leucocytosis is possibly secondary to mets in liver WBC is 25.0 on levaphed ( minimal) chest x-ray reviewed 01/11 : No significant interval change. plevic fluid cultures are neg 01/06: body fluid cultures : few WBC seen , no organisms 01/05, Blood culture: No growth 01/05, Urine culture: No growth 01/04, Aerobic culture: No growth 12/29 : sputum culture notable for Enterobacter cloacae. CT pelvic wo contrast done on 01/06 : CT guided needle/catheter placement into the low pelvic fluid collection with aspiration of 1-2 mL of yellow serous fluid. No drain was placed. overall prognosis is very poor with mets, Thank you for the consult and for giving an opportunity to take care of this patient. Dietary Evaluation Review Comments: 1) Advance pt diet when medically feasible to a Cardiac diet 2) Continue current plan of care Expected Outcomes/Goals: 1) F/U in 3-5 days Plan discussed with: JASPREET Galvan MD Jan 12, 2024 08:39
--- NOTE | 2024-01-12 10:23 | DVHPN2 ---
Progress Note Date Seen: Jan 12, 2024 Medical Necessity Reason Pt with a Central, PICC or Fol: Yes The following are medically ne: PICC Line, Davies Catheter Reason for davies catheter: Strict I&O Objective vital signs Vital Sign Date Time Temp Pulse Resp B/P (MAP) Pulse Ox O2 Delivery O2 Flow Rate FiO2 01/12/24 10:14 94 26 106/55 (72) 96 30 01/12/24 08:00 Mechanical Ventilator+ 01/12/24 08:00 97.1 97.1 Total Intake and Output 01/11/24 01/11/24 01/12/24 15:00 23:00 07:00 Intake Total 673.769 ml 751.519 ml 746.898 ml Output Total 1225 ml 1025 ml Balance 673.769 ml -473.481 ml -278.102 ml medications Current Medications Medications Dose Ordered Sig/Saige Route Start Time Stop Time Status Last Admin Dose Admin Sodium Chloride 10 ml Q8HR IV 12/17/23 22:00 01/12/24 05:16 10 ML Midazolam HCl 50 ml @ 1 mls/hr Q24H IV 12/25/23 12:30 01/09/24 07:28 2 MLS/HR Nitroglycerin 0.4 mg Q5MINP PRN SL 12/25/23 16:00 Vasopressin 20 units/Sodium Chloride 100 ml @ 9 mls/hr Q11H7M IV 12/25/23 17:15 12/29/23 11:50 9 MLS/HR Phenylephrine HCl 250 ml @ 30 mls/hr Q8H20M IV 12/25/23 17:15 12/26/23 00:42 48.75 MLS/HR Epinephrine HCl 250 ml @ 7.5 mls/hr Q24H IV 12/25/23 18:30 Pantoprazole Sodium 40 mg DAILY IV 12/26/23 10:00 01/12/24 09:52 40 MG Ipratropium [place] 0.5 mg Q6HR NEB 12/27/23 18:00 Cancel Norepinephrine Bitartrate 32 mg/ Sodium Chloride 250 ml @ 0.938 mls/ hr Q24H IV 12/27/23 14:45 01/10/24 14:08 0.938 MLS/HR Amino Acids 0 ml @ 0 mls/hr PER PHARMACY IV 12/28/23 12:00 Diagnostic Test (Pha) 1 strip Q6HR 12/28/23 18:00 01/12/24 06:24 1 STRIP Insulin Human Regular FOLLOW SLIDING SCALE Q6HR SC 12/28/23 18:00 01/12/24 06:25 2 UNITS Dextrose 50 ml UD IV 12/28/23 13:00 Insulin Glargine 15 units DAILY@1000 SC 12/29/23 12:15 01/12/24 09:56 15 UNITS Fentanyl Citrate 250 ml @ 2.5 mls/hr Q24H IV 01/03/24 17:15 01/12/24 05:16 27.5 MLS/HR Furosemide 40 mg TID IV 01/05/24 14:00 01/12/24 05:08 40 MG Sodium Chloride 10 ml QSHIFT@ IV 01/05/24 22:00 01/12/24 09:52 10 ML Dexmedetomidine HCl 400 mcg/ Dextrose 100 ml @ 3.91 mls/hr Q24H IV 01/09/24 11:45 01/12/24 05:13 11.73 MLS/HR Metoclopramide HCl 10 mg Q8HR GT 01/10/24 14:00 01/12/24 05:16 10 MG Fat Emulsion Intravenous 50 ml/ Potassium Acetate 60 meq/Magnesium Sulfate 6 meq/ Multivitamins 10 ml/Amino Acids/ Dextrose/Purified Water 1,266.5 ml @ 53 mls/hr [id number] IV 01/11/24 22:00 01/12/24 21:59 01/11/24 21:19 53 MLS/HR laboratory and microbiology Laboratory Tests 01/12/24 03:55 Test 01/12/24 03:55 Range/Units Serum Glucose 128 H 74-106 mg/dL Problem List/Assessment/Plan Problem List/Assessment/Plan 01/06/[address] Aditi BUCKLEY, ABDOMEN APPEARS TO BE TENDER IN THE LEFT LOWER QUADRANT, WOUND IS CLEAN AND WELL APPROXIMATED, DRAINAGE FROM LOWER PORTION OF MIDLINE WOUND.AWAITING ir intervention 01/07/24 essentially unchanged, continues hypotensive with leukocytosis, abdomen "full", no BM or flatus reported, spoke to interventional radiologist, he will proceed with drainage of pelvic fluid collection via transgluteal approach 01/08/24 slightly improved, discussed pelvic fluid drainage with radiologist,abdomen soft, non distended, continue current treatments 01/09/24 slightly improved, abdomen less tense, wound clean ,drainage clear, good urine output, less pressors requirement 01/10/24 wbc slightly better, wound ok, abdomen soft and non distended, no BM, will add reglan, once she passes flatus NG tube can be DC'd 01/11/24 'S QUESTIONS ANSWERED, SHE CONTINUES UNCHANGED, WOUND CLEAN ,ABDOMEN NON DISTENDED 01/12/24 abdomen non distended, appears non tender()pt awakens), wound clean and well approximated, undergoing CPAP trial Plan discussed with: Spouse Dietary Evaluation Review Comments: 1) Advance pt diet when medically feasible to a Cardiac diet 2) Continue current plan of care Expected Outcomes/Goals: 1) F/U in 3-5 days ASPEN EUBANKS MD Jan 12, 2024 10:23
[2024-01-12 13:13] LABS: Base Excess 0.9 mmol/L (-2.0-3.0)
--- NOTE | 2024-01-12 15:36 | DVHPNRES ---
Progress Note Date Seen: Jan 12, 2024 Resident Creating Document: NICHOLE CANCINO RESIDENT Medical Necessity Reason Pt with a Central, PICC or Fol: Yes The following are medically ne: PICC Line, Davies Catheter Reason for davies catheter: Strict I&O Subjective Review of Systems A 63-year-old female patient with PMHx of systolic heart failure status post Medtronic ICD placement -last EF 35% in September2023, CAD status post 4 RYAN in January 2018 , dyslipidemia, recurrent UTIs and pyelonephritis for the past 4 months, hypertension and internal hemorrhoids presented to the ER with a chief complaint of suprapubic abdominal pain and constipation. Patient recently visited [facility] in August this year with her when she went to [place] barefoot and had bite dong all over the body, following which she has been getting recurrent UTIs and pyelonephritis starting September, also reports dry cough since the visit. She reports that the abdominal pain started 12/10 and is associated with tenesmus, she only passes small pellet-like stools associated with mucus and a lot of flatus. Also reports history of internal hemorrhoids and that she is experiencing bright red bleed per rectum for the past few days. She denies lifetime history of colonoscopy/endoscopy. Reports nausea, chills on and off but no fever. Denies lifetime history of STI, is monogamous with the . Her did not get any symptoms after the trip. PCP Jodie Rico Hadoop Analyst: Slava Assistant Professor [employer] Dr Schrader Past surgical history; Partial hysterectomy Family history: Unremarkable Social history: Lives with , denies smoking, drank heavily during the vacation - quit since, denies illicit drug Patient seen and examined at bedside. Sedated, intubated on mechanical ventilator. Overnight events reviewed. Objective vital signs Vital Sign Date Time Temp Pulse Resp B/P (MAP) Pulse Ox O2 Delivery O2 Flow Rate FiO2 01/12/24 14:52 107 22 113/64 (80) 96 30 01/12/24 12:00 98.4 98.4 01/12/24 12:00 Mechanical Ventilator+ Total Intake and Output 01/11/24 01/11/24 01/12/24 15:00 23:00 07:00 Intake Total 673.769 ml 751.519 ml 746.898 ml Output Total 1225 ml 1025 ml Balance 673.769 ml -473.481 ml -278.102 ml medications Current Medications Medications Dose Ordered Sig/Saige Route Start Time Stop Time Status Last Admin Dose Admin Sodium Chloride 10 ml Q8HR IV 12/17/23 22:00 01/12/24 14:16 10 ML Midazolam HCl 50 ml @ 1 mls/hr Q24H IV 12/25/23 12:30 01/09/24 07:28 2 MLS/HR Nitroglycerin 0.4 mg Q5MINP PRN SL 12/25/23 16:00 Vasopressin 20 units/Sodium Chloride 100 ml @ 9 mls/hr Q11H7M IV 12/25/23 17:15 12/29/23 11:50 9 MLS/HR Phenylephrine HCl 250 ml @ 30 mls/hr Q8H20M IV 12/25/23 17:15 12/26/23 00:42 48.75 MLS/HR Epinephrine HCl 250 ml @ 7.5 mls/hr Q24H IV 12/25/23 18:30 Pantoprazole Sodium 40 mg DAILY IV 12/26/23 10:00 01/12/24 09:52 40 MG Ipratropium [place] 0.5 mg Q6HR NEB 12/27/23 18:00 Cancel Norepinephrine Bitartrate 32 mg/ Sodium Chloride 250 ml @ 0.938 mls/ hr Q24H IV 12/27/23 14:45 01/10/24 14:08 0.938 MLS/HR Amino Acids 0 ml @ 0 mls/hr PER PHARMACY IV 12/28/23 12:00 Diagnostic Test (Pha) 1 strip Q6HR 12/28/23 18:00 01/12/24 12:22 1 STRIP Insulin Human Regular FOLLOW SLIDING SCALE Q6HR SC 12/28/23 18:00 01/12/24 12:28 2 UNITS Dextrose 50 ml UD IV 12/28/23 13:00 Insulin Glargine 15 units DAILY@1000 SC 12/29/23 12:15 01/12/24 09:56 15 UNITS Fentanyl Citrate 250 ml @ 2.5 mls/hr Q24H IV 01/03/24 17:15 01/12/24 05:16 27.5 MLS/HR Furosemide 40 mg TID IV 01/05/24 14:00 01/12/24 14:16 40 MG Sodium Chloride 10 ml QSHIFT@10,22 IV 01/05/24 22:00 01/12/24 09:52 10 ML Dexmedetomidine HCl 400 mcg/ Dextrose 100 ml @ 3.91 mls/hr Q24H IV 01/09/24 11:45 01/12/24 05:13 11.73 MLS/HR Metoclopramide HCl 10 mg Q8HR GT 01/10/24 14:00 01/12/24 15:12 10 MG Fat Emulsion Intravenous 50 ml/ Potassium Acetate 60 meq/Magnesium Sulfate 6 meq/ Multivitamins 10 ml/Amino Acids/ Dextrose/Purified Water 1,266.5 ml @ 53 mls/hr [id number] IV 01/11/24 22:00 01/12/24 21:59 01/11/24 21:19 53 MLS/HR Fat Emulsion Intravenous 50 ml/ Potassium Acetate 80 meq/Magnesium Sulfate 4 meq/ Multivitamins 10 ml/Amino Acids/ Dextrose/Purified Water 1,301 ml @ 54 mls/hr Q24H6M IV 01/12/24 22:00 01/13/24 21:59 Albumin Human 100 ml @ 100 mls/hr Q8H IV 01/12/24 14:30 01/13/24 07:29 UNV Enoxaparin Sodium 40 mg DAILY SC 01/13/24 10:00 UNV Examination Gen.: Patient lying in bed in medical ICU. Sedated, intubated on mechanical ventilator. Head: Normocephalic, atraumatic. Eyes: PERRLA. Ears: Normal external anatomy. Throat: Endotracheal tube and orogastric tube in place. Neck: Supple, trachea midline. Chest: Transmitted breath sounds bilaterally. Decreased air entry bilaterally. No wheezing. Bibasilar crackles. Cardiovascular: Positive S1, positive S2. Regular rate and rhythm. Abdomen: Positive bowel sounds in all 4 quadrants. Soft, nontender, nondistended. : Davies in place. Normal external genitalia. Rectal: Deferred. Skin: Warm, dry. Intact. Extremities: 2+ radial pulses bilaterally. No lower extremity edema. Neuro: Sedated. laboratory and microbiology Laboratory Tests 01/12/24 03:55 Test 01/12/24 03:55 Range/Units Serum Glucose 128 H 74-106 mg/dL Microbiology Date/Time Source Procedure Growth Status 01/07/24 15:20 Aspirate Gram Stain - Final Resulted 01/07/24 15:20 Aspirate Body Fluid Culture - Preliminary Resulted 01/06/24 16:24 Blood Blood Culture - Final NO GROWTH AFTER 5 DAYS OF INCUBATION. Complete 01/06/24 14:50 Urine - Davies [place] Urine Culture - Final Complete 01/05/24 22:00 Catheter Tip Aerobic Culture - Final Complete 12/30/23 20:08 Sputum Expectorated Sputum Gram Stain - Final Complete 12/30/23 20:08 Respiratory Culture - Final Enterobacter cloacae Complete 12/18/23 13:03 Stool Stool Culture - Final Complete 12/18/23 13:03 Stool Shiga Toxin I & II - Final Complete Problem List/Assessment/Plan Problem List/Assessment/Plan NEUROLOGY RASS -4 Pt off sedation, no following commands New head ct scan CARDIOLOGY septic shock? 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 Severely reduced left ventricular systolic function with estimated ejection fraction of 35%. There is anterior anteroapical wall akinesia. EKG completed, reviewed - no ST changes. Cardiology consultation - underwent stress test 12/22 which showed large anterior anteroseptal and apical wall infarction without evidence of ischemia. Moderately severe reduced ejection fraction at 38%. Troponin 48, 42 downtrending Hold on Entresto 24/26 mg b.i.d., Jardiance 10 mg daily per cardiology RESPIRATORY Acute respiratory failure due to Distributive/ vasodilatory shock secondary to status post left colon resection Due to the need of pressors at the time of surgery, patient was not extubated in the OR cpap trial 8h Xray no consolidations at the time, bilateral pleural effusion no consolidation sputum positive Enterobacter cloacae No consolidation at this time Pt is on meropenem mild fever today: pancultures 2 cultures positive for e cloacae Currently on assist control with respiratory rate of 16, tidal volume 350, PEEP of 5, FiO2 of 30%. 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 Tom - underwent left colon resection with primary anastomosis on 12/24. Patient required pressor support. [address] scan didn't show dehiscence or abscess Patient underwent US-guided right hepatic lobe mass single kwon core obtained 12/21. Pathology results pending. CT abdomen completed with contrast shows a 6 cm segment of the sigmoid colon demonstrating irregular wall thickening suspicious for primary colon malignancy. GI consulted - Flexible sigmoidoscopy with biopsy identified circumferential polypoid ulcerated inflamed and partially obstructing distal descending colon mass close to the proximal sigmoid at about 45-50 cm above the anal verge. 1+ internal hemorrhoids. She denies lifetime history of colonoscopy/endoscopy. Recent travel history to [facility]. H&H 9.3/28.8, hematocrit 77 - Iron panel remarkable for low iron/low % saturation/normal TIBC Tumor markers CEA 326, AFP 2 Transaminitis secondary to metastatic colon cancer CT scan abdomen with contrast shows enlarged liver with numerous poorly enhancing hepatic lesions with the larger lesions measuring greater than 12 cm. Suspicious for metastatic lesions. Liver ultrasound completed [id number] left liver lobe soft tissue mass tried hepatomegaly with increased hepatic echogenicity seen. Blood alcohol level <3 Pt is on TPN /RENAL KENNA due to shock resolving severe metabolic acidosis non anion gap resolved Low urinary output improving Nephrology on board Furosemide 40 mg IV TID urine culture negative Case discussed with Dr Hall Critical Care time spent 51 minutes including patient care, chart review and updating family, excluding procedure. Plan discussed with: Spouse, Other (RN) My Orders My Orders Orders - NICHOLE CANCINO Procedure Category Date Status Time Chest Xray 1 View XY 01/13/24 Logged 04:00 Abg W/ Co-Ox RT 01/13/24 Logged 04:00 Dietary Evaluation Review Comments: 1) Advance pt diet when medically feasible to a Cardiac diet 2) Continue current plan of care Expected Outcomes/Goals: 1) F/U in 3-5 days Date of Service: Jan 12, 2024 Billing Provider: LEO HALL MD Common Visit Codes: [id number] INP/OBS CARE(HIGH) HASAN,NICHOLE SHAVER Jan 12, 2024 15:36 LEO HALL MD Jan 14, 2024 12:49
[2024-01-12] MEDS: ALBUMIN 25% 100 ML IV SCH (16:07)
[2024-01-12] MEDS: D5W/SOD CHL 0.45% 1,000 ML IV SCH (16:07)
[2024-01-12] MEDS: TPN PER PHARMACY IV NR (21:46)
[2024-01-12] MEDS: METOCLOPRAMIDE HCL 5MG/ml INJ 2ml VIAL IV SCH (22:45)
[2024-01-12] MEDS: fentaNYL Drip 2500mCg/250mlNS 250 ML IV SCH (22:52)
[2024-01-13] VITALS (96 sets, daily range): BP systolic 82–163; BP diastolic 44–91; PULSE 73–134; RESP 14–32; TEMP 97.9–101; O2SAT 95–100
[2024-01-13 04:12] LABS: Eosinophils # (auto) 0.1 10 ^3/uL (0-0.8); Hematocrit 24.8 % (36.0-46.0)
[2024-01-13 04:15] LABS: Basophils # (auto) 0.2 10 ^3/uL (0-0.2); Eosinophils % (auto) 0.5 % (0.0-7.0); Hemoglobin 7.7 g/dL (12.2-16.2); Lymphocytes % (auto) 5.1 % (10.0-50.0); Mean Corpuscular Hemoglobin 24.6 pg (28.0-32.0); Mean Corpuscular Hgb Conc. 30.9 g/dL (32.0-36.0); Mean Corpuscular Volume 79.5 fL (80.0-100.0); Monocytes # (auto) 1.3 10 ^3/uL (0-1.3); Monocytes % (auto) 6.4 % (0.0-12.0); Neutrophils # (auto) 17.3 10 ^3/uL (1.6-8.6); Platelet Count (auto) 442 10^3/uL (140-450); Red Blood Cells 3.12 10^6/uL (4.0-5.20); White Blood Cell 19.9 10^3/uL (4.4-10.8)
[2024-01-13 04:21] LABS: Chloride 114 mmol/L (98-107); Sodium 153 mmol/L (136-145)
[2024-01-13 04:22] LABS: Anion Gap 10 (5-15); Carbon Dioxide 29 mmol/L (20-31)
[2024-01-13 04:23] LABS: Calcium 8.5 mg/dL (8.7-10.4)
[2024-01-13 04:24] LABS: Red Cell Distribution Width 26.6 % (11.8-14.3)
[2024-01-13 04:27] LABS: Glucose 147 mg/dL (74-106)
[2024-01-13 04:28] LABS: BUN/Creatinine Ratio 81.8 (10.0-20.0); Blood Urea Nitrogen 54 mg/dL (9-23)
[2024-01-13 04:33] LABS: Alanine Aminotransferase 77 U/L (7-40); Albumin 2.8 g/dL (3.2-4.8); Alkaline Phosphatase 258 U/L (46-116); Anion Gap 10 (5-15); Aspartate Aminotransferase 205 U/L (13-40); BUN/Creatinine Ratio 84.8 (10.0-20.0); Blood Urea Nitrogen 56 mg/dL (9-23); Calcium 8.5 mg/dL (8.7-10.4); Carbon Dioxide 28 mmol/L (20-31); Chloride 114 mmol/L (98-107); Glucose 151 mg/dL (74-106); Magnesium 2.2 mg/dL (1.6-2.6); Phosphorus 2.9 mg/dL (2.4-5.1); Sodium 152 mmol/L (136-145)
[2024-01-13 04:34] LABS: Bilirubin, Total 4.3 mg/dL (0.2-1.0); Total Protein 5.8 g/dL (5.7-8.2)
--- NOTE | 2024-01-13 04:39 | DVH ---
CHEST RADIOGRAPH Indication: intubated Technique: Single frontal view of the chest was obtained Comparison: XY CHEST PORTABLE on DOS: 01/12/24, XY CHEST PORTABLE on DOS: 01/11/24, XY CHEST XRAY 1 V IEW on DOS: 01/10/24 IMPRESSION: There are low lung volumes. Support lines and tubes appear unchanged in satisfactory position. Patch y airspace opacity in the right lower lobe likely represents atelectasis. No sizable effusion or pneu mothorax.
[2024-01-13 06:52] LABS: Anisocytosis Moderate; Platelet Estimate Adequate
[2024-01-13 06:53] LABS: Giant Platelets Few; Hypochromia Slight; Large Platelets FEW; Target Cell FEW
[2024-01-13 07:26] LABS: Base Excess 2.4 mmol/L (-2.0-3.0)
--- NOTE | 2024-01-13 08:46 | DVHPN2 ---
Progress Note - Dictate Date Seen: Jan 13, 2024 Medical Necessity Reason Pt with a Central, PICC or Fol: Yes The following are medically ne: PICC Line, Davies Catheter Reason for davies catheter: Strict I&O Subjective Patient was seen and examined at bedside. She is sedated, intubated on mechanical ventilator. s/p pelvic fluid aspiration not tolerated CPAP trial Antibiotic status: Vancomycin HCl 200 ml @ 200 mls/hr - [Started 12/31 - 01/07] Meropenem 50 ml @ 17 mls/hr - [Started - 01/02 - stopped] vital signs Vital Sign Date Time Temp Pulse Resp B/P (MAP) Pulse Ox O2 Delivery O2 Flow Rate FiO2 01/13/24 06:45 84 14 83/44 (57) 97 01/13/24 06:06 30 01/13/24 06:00 Mechanical Ventilator+ 01/13/24 04:00 98.2 98.2 Total Intake and Output 01/12/24 01/12/24 01/13/24 15:00 23:00 07:00 Intake Total 632.840 ml 1611.466 ml 1568.261 ml Output Total 1100 ml 1250 ml Balance 632.840 ml 511.466 ml 318.261 ml medications Current Medications Medications Dose Ordered Sig/Saige Route Start Time Stop Time Status Last Admin Dose Admin Sodium Chloride 10 ml Q8HR IV 12/17/23 22:00 01/13/24 05:56 10 ML Midazolam HCl 50 ml @ 1 mls/hr Q24H IV 12/25/23 12:30 01/09/24 07:28 2 MLS/HR Nitroglycerin 0.4 mg Q5MINP PRN SL 12/25/23 16:00 Vasopressin 20 units/Sodium Chloride 100 ml @ 9 mls/hr Q11H7M IV 12/25/23 17:15 12/29/23 11:50 9 MLS/HR Phenylephrine HCl 250 ml @ 30 mls/hr Q8H20M IV 12/25/23 17:15 12/26/23 00:42 48.75 MLS/HR Epinephrine HCl 250 ml @ 7.5 mls/hr Q24H IV 12/25/23 18:30 Pantoprazole Sodium 40 mg DAILY IV 12/26/23 10:00 01/12/24 09:52 40 MG Ipratropium [place] 0.5 mg Q6HR NEB 12/27/23 18:00 Cancel Norepinephrine Bitartrate 32 mg/ Sodium Chloride 250 ml @ 0.938 mls/ hr Q24H IV 12/27/23 14:45 01/10/24 14:08 0.938 MLS/HR Amino Acids 0 ml @ 0 mls/hr PER PHARMACY IV 12/28/23 12:00 Diagnostic Test (Pha) 1 strip Q6HR 12/28/23 18:00 01/13/24 05:56 1 STRIP Insulin Human Regular FOLLOW SLIDING SCALE Q6HR SC 12/28/23 18:00 01/13/24 00:00 2 UNITS Dextrose 50 ml UD IV 12/28/23 13:00 Insulin Glargine 15 units DAILY@1000 SC 12/29/23 12:15 01/12/24 09:56 15 UNITS Furosemide 40 mg TID IV 01/05/24 14:00 01/13/24 05:48 40 MG Sodium Chloride 10 ml QSHIFT@10,22 IV 01/05/24 22:00 01/12/24 21:38 10 ML Dexmedetomidine HCl 400 mcg/ Dextrose 100 ml @ 3.91 mls/hr Q24H IV 01/09/24 11:45 01/13/24 05:58 11.73 MLS/HR Fat Emulsion Intravenous 50 ml/ Potassium Acetate 80 meq/Magnesium Sulfate 4 meq/ Multivitamins 10 ml/Amino Acids/ Dextrose/Purified Water 1,301 ml @ 54 mls/hr Q24H6M IV 01/12/24 22:00 01/13/24 21:59 01/12/24 21:46 54 MLS/HR Enoxaparin Sodium 40 mg DAILY SC 01/13/24 10:00 Dextrose/Sodium Chloride 1,000 ml @ 100 mls/hr Q10H IV 01/12/24 16:00 01/13/24 01:57 100 MLS/HR Metoclopramide HCl 10 mg Q8HR IV 01/12/24 22:00 01/13/24 05:47 10 MG Fentanyl Citrate 250 ml @ 2.5 mls/hr Q24H IV 01/12/24 22:45 01/13/24 06:02 32.5 MLS/HR objective General.: Patient lying in bed in medical ICU. Sedated, intubated on mechanical ventilator. Head: Normocephalic, atraumatic. Eyes: PERRLA. Ears: Normal external anatomy. Throat: Endotracheal tube and orogastric tube in place. Neck: Supple, trachea midline. Chest: Transmitted breath sounds bilaterally. Decreased air entry bilaterally. No wheezing. Bibasilar crackles. Cardiovascular: Positive S1, positive S2. Regular rate and rhythm. Abdomen: Positive bowel sounds in all 4 quadrants. Soft, nontender, nondistended. : Davies in place. Normal external genitalia. Rectal: Deferred. Skin: Warm, dry. Intact. Extremities: 2+ radial pulses bilaterally. +4 pitting edema. Neuro: Sedated. laboratory and microbiology Laboratory Tests 01/13/24 03:30 Test 01/13/24 03:30 Range/Units Serum Glucose 151 H 74-106 mg/dL Assessment/Plan Patient is a 64-year-old female presents to the hospital with: septic shock vs distributive shock : resolved leucocytosis ? stress induced vs sepsis vs reactive Ventilator associated Pneumonia : [place] large bowel obstruction s/p colectomy s/p end to end anastomosis 12/24 possible colon cancer with mets ascites: malignant vs post surgical vs infection Liver mets acute hypoxic respiratory failure on mechanical ventilation CHF anasarca Recommendations: off Meropenem, leucocytosis is possibly secondary to mets in liver WBC is 25.0 on levaphed ( minimal) chest x-ray reviewed 01/12: There are low lung volumes. Support lines and tubes appear unchanged in satisfactory position. Patchy airspace opacity in the right lower lobe likely represents atelectasis. No sizable effusion or pneumothorax. Urine culture: Pending plevic fluid cultures are neg 01/06: body fluid cultures : few WBC seen , no organisms 01/05, Blood culture: No growth 01/05, Urine culture: No growth 01/04, Aerobic culture: No growth 12/29 : sputum culture notable for Enterobacter cloacae. CT pelvic wo contrast done on 01/06 : CT guided needle/catheter placement into the low pelvic fluid collection with aspiration of 1-2 mL of yellow serous fluid. No drain was placed. overall prognosis is very poor with mets, Thank you for the consult and for giving an opportunity to take care of this patient. Dietary Evaluation Review Comments: 1) Advance pt diet when medically feasible to a Cardiac diet 2) Continue current plan of care Expected Outcomes/Goals: 1) F/U in 3-5 days Plan discussed with: JASPREET Galvan MD Jan 13, 2024 08:46
[2024-01-13] MEDS: ENOXAPARIN SOD 40 MG/0.4 ML SYRINGE SC SCH (09:47)
[2024-01-13 09:51] LABS: Base Excess 2.2 mmol/L (-2.0-3.0)
[2024-01-13] MEDS: POTASSIUM CHL 20MEQ/100ML 100 ML IV SCH (10:08)
[2024-01-13] MEDS ORDERED: ACETAMINOPHEN IV 1000 MG/100ML (10MG/ML) IV PRN ×2 (13:45→15:45)
[2024-01-13] MEDS: ACETAMINOPHEN IV 100 ML IV ONE (14:03)
[2024-01-13] MEDS: ACETAMINOPHEN IV 1000 MG/100ML (10MG/ML) IV PRN (14:10)
--- NOTE | 2024-01-13 14:52 | DVHPNRES ---
Progress Note Date Seen: Jan 13, 2024 Resident Creating Document: NICHOLE CANCINO RESIDENT Medical Necessity Reason Pt with a Central, PICC or Fol: Yes The following are medically ne: PICC Line, Davies Catheter Reason for davies catheter: Strict I&O Subjective Review of Systems A 63-year-old female patient with PMHx of systolic heart failure status post Medtronic ICD placement -last EF 35% in September2023, CAD status post 4 RYAN in January 2018 , dyslipidemia, recurrent UTIs and pyelonephritis for the past 4 months, hypertension and internal hemorrhoids presented to the ER with a chief complaint of suprapubic abdominal pain and constipation. Patient recently visited [facility] in August this year with her when she went to the [place] bare[place] and had bite dong all over the body, following which she has been getting recurrent UTIs and pyelonephritis starting September, also reports dry cough since the visit. She reports that the abdominal pain started 12/10 and is associated with tenesmus, she only passes small pellet-like stools associated with mucus and a lot of flatus. Also reports history of internal hemorrhoids and that she is experiencing bright red bleed per rectum for the past few days. She denies lifetime history of colonoscopy/endoscopy. Reports nausea, chills on and off but no fever. Denies lifetime history of STI, is monogamous with the . Her did not get any symptoms after the trip. PCP Jodie Rico Assistant Reading Teacher: Slava Stage Director Dr Schrader Past surgical history; Partial hysterectomy Family history: Unremarkable Social history: Lives with , denies smoking, drank heavily during the vacation - quit since, denies illicit drug Patient seen and examined at bedside. Patient is extubated today, Objective vital signs Vital Sign Date Time Temp Pulse Resp B/P (MAP) Pulse Ox O2 Delivery O2 Flow Rate FiO2 01/13/24 13:45 120 26 131/64 (86) 98 01/13/24 13:00 101.0 101.0 01/13/24 12:00 Cool Aerosol 6 28 28 Total Intake and Output 01/12/24 01/12/24 01/13/24 15:00 23:00 07:00 Intake Total 632.840 ml 1611.466 ml 1568.261 ml Output Total 1100 ml 1250 ml Balance 632.840 ml 511.466 ml 318.261 ml medications Current Medications Medications Dose Ordered Sig/Saige Route Start Time Stop Time Status Last Admin Dose Admin Sodium Chloride 10 ml Q8HR IV 12/17/23 22:00 01/13/24 05:56 10 ML Midazolam HCl 50 ml @ 1 mls/hr Q24H IV 12/25/23 12:30 01/09/24 07:28 2 MLS/HR Nitroglycerin 0.4 mg Q5MINP PRN SL 12/25/23 16:00 Vasopressin 20 units/Sodium Chloride 100 ml @ 9 mls/hr Q11H7M IV 12/25/23 17:15 12/29/23 11:50 9 MLS/HR Phenylephrine HCl 250 ml @ 30 mls/hr Q8H20M IV 12/25/23 17:15 12/26/23 00:42 48.75 MLS/HR Epinephrine HCl 250 ml @ 7.5 mls/hr Q24H IV 12/25/23 18:30 Pantoprazole Sodium 40 mg DAILY IV 12/26/23 10:00 01/13/24 09:45 40 MG Ipratropium [place] 0.5 mg Q6HR NEB 12/27/23 18:00 Cancel Norepinephrine Bitartrate 32 mg/ Sodium Chloride 250 ml @ 0.938 mls/ hr Q24H IV 12/27/23 14:45 01/10/24 14:08 0.938 MLS/HR Amino Acids 0 ml @ 0 mls/hr PER PHARMACY IV 12/28/23 12:00 Diagnostic Test (Pha) 1 strip Q6HR 12/28/23 18:00 01/13/24 11:42 1 STRIP Insulin Human Regular FOLLOW SLIDING SCALE Q6HR SC 12/28/23 18:00 01/13/24 00:00 2 UNITS Dextrose 50 ml UD IV 12/28/23 13:00 Insulin Glargine 15 units DAILY@1000 SC 12/29/23 12:15 01/12/24 09:56 15 UNITS Furosemide 40 mg TID IV 01/05/24 14:00 01/13/24 05:48 40 MG Sodium Chloride 10 ml QSHIFT@10,22 IV 01/05/24 22:00 01/13/24 09:47 10 ML Dexmedetomidine HCl 400 mcg/ Dextrose 100 ml @ 3.91 mls/hr Q24H IV 01/09/24 11:45 01/13/24 05:58 11.73 MLS/HR Fat Emulsion Intravenous 50 ml/ Potassium Acetate 80 meq/Magnesium Sulfate 4 meq/ Multivitamins 10 ml/Amino Acids/ Dextrose/Purified Water 1,301 ml @ 54 mls/hr Q24H6M IV 01/12/24 22:00 01/13/24 21:59 01/12/24 21:46 54 MLS/HR Enoxaparin Sodium 40 mg DAILY SC 01/13/24 10:00 01/13/24 09:47 40 MG Dextrose/Sodium Chloride 1,000 ml @ 100 mls/hr Q10H IV 01/12/24 16:00 01/13/24 10:57 100 MLS/HR Metoclopramide HCl 10 mg Q8HR IV 01/12/24 22:00 01/13/24 05:47 10 MG Fentanyl Citrate 250 ml @ 2.5 mls/hr Q24H IV 01/12/24 22:45 01/13/24 06:02 32.5 MLS/HR Fat Emulsion Intravenous 50 ml/ Potassium Acetate 80 meq/Potassium Phosphate 22 meq/ Magnesium Sulfate 2 meq/ Multivitamins 10 ml/Amino Acids/ Dextrose/Purified Water 1,305.5 ml @ 54 mls/hr [id number] IV 01/13/24 22:00 01/14/24 21:59 Examination Head: Normocephalic, atraumatic. Eyes: PERRLA. Ears: Normal external anatomy. Throat: Endotracheal tube and orogastric tube in place. Neck: Supple, trachea midline. Chest: Transmitted breath sounds bilaterally. Decreased air entry bilaterally. No wheezing. Bibasilar crackles. Cardiovascular: Positive S1, positive S2. Regular rate and rhythm. Abdomen: Positive bowel sounds in all 4 quadrants. Soft, nontender, nondistended. : Davies in place. Normal external genitalia. Rectal: Deferred. Skin: Warm, dry. Intact. Extremities: 2+ radial pulses bilaterally. No lower extremity edema. Neuro: Following commands laboratory and microbiology Laboratory Tests 01/13/24 03:30 Test 01/13/24 03:30 Range/Units Serum Glucose 151 H 74-106 mg/dL Microbiology Date/Time Source Procedure Growth Status 01/12/24 16:13 Sputum Gram Stain - Final Resulted 01/12/24 16:13 Sputum Respiratory Culture - Preliminary Resulted 01/12/24 14:50 Urine - Davies Port Urine Culture - Preliminary Resulted 01/07/24 15:20 Aspirate Gram Stain - Final Complete 01/07/24 15:20 Aspirate Body Fluid Culture - Final Complete 01/06/24 16:24 Blood Blood Culture - Final NO GROWTH AFTER 5 DAYS OF INCUBATION. Complete 01/05/24 22:00 Catheter Tip Aerobic Culture - Final Complete 12/18/23 13:03 Stool Stool Culture - Final Complete 12/18/23 13:03 Stool Shiga Toxin I & II - Final Complete Problem List/Assessment/Plan Problem List/Assessment/Plan NEUROLOGY - patient extubated today -patient is following commands CARDIOLOGY septic shock? 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 Severely reduced left ventricular systolic function with estimated ejection fraction of 35%. There is anterior anteroapical wall akinesia. EKG completed, reviewed - no ST changes. Cardiology consultation - underwent stress test 12/22 which showed large anterior anteroseptal and apical wall infarction without evidence of ischemia. Moderately severe reduced ejection fraction at 38%. Troponin 48, 42 downtrending Hold on Entresto 24/26 mg b.i.d., Jardiance 10 mg daily per cardiology RESPIRATORY Acute respiratory failure due to Distributive/ vasodilatory shock secondary to status post left colon resection sputum positive Enterobacter cloacae No consolidation at this time mild fever today: pancultures 2 cultures positive for e cloacae Patient is extubated today GI s/p left colectomy 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 Tom - underwent left colon resection with primary anastomosis on 12/24. Patient required pressor support. [address] scan didn't show dehiscence or abscess Patient underwent US-guided right hepatic lobe mass single kwon core obtained 12/21. Pathology results pending. CT abdomen completed with contrast shows a 6 cm segment of the sigmoid colon demonstrating irregular wall thickening suspicious for primary colon malignancy. GI consulted - Flexible sigmoidoscopy with biopsy identified circumferential polypoid ulcerated inflamed and partially obstructing distal descending colon mass close to the proximal sigmoid at about 45-50 cm above the anal verge. 1+ internal hemorrhoids. She denies lifetime history of colonoscopy/endoscopy. Recent travel history to [facility]. H&H 9.3/28.8, hematocrit 77 - Iron panel remarkable for low iron/low % saturation/normal TIBC Tumor markers CEA 326, AFP 2 Transaminitis secondary to metastatic colon cancer CT scan abdomen with contrast shows enlarged liver with numerous poorly enhancing hepatic lesions with the larger lesions measuring greater than 12 cm. Suspicious for metastatic lesions. Liver ultrasound completed [id number] left liver lobe soft tissue mass tried hepatomegaly with increased hepatic echogenicity seen. Blood alcohol level <3 Pt is on TPN /RENAL KENNA due to shock resolving severe metabolic acidosis non anion gap resolved Low urinary output improving Nephrology on board Furosemide 40 mg IV TID urine culture negative Patient is extubated today. Stable on oxygen with face-mask Case discussed with Dr Hall Critical Care time spent 103 minutes including CPAP trials, patient care, chart review and updating family, excluding procedure. Plan discussed with: Patient, Spouse, Other (RN) My Orders My Orders Orders - NICHOLE CANCINO Procedure Category Date Status Time Chest Xray 1 View XY 01/13/24 Resulted 04:00 Abg W/ Co-Ox RT 01/13/24 Logged 04:00 Dietary Evaluation Review Comments: 1) Advance pt diet when medically feasible to a Cardiac diet 2) Continue current plan of care Expected Outcomes/Goals: 1) F/U in 3-5 days Date of Service: Jan 13, 2024 Billing Provider: LEO HALL MD Common Visit Codes: [id number] INP/OBS CARE(HIGH) NICHOLE CANCINO Jan 13, 2024 14:52 LEO HALL MD Jan 14, 2024 12:50
[2024-01-13] MEDS: FUROSEMIDE 40 MG/4 ML VIAL IV ONE (17:24)
[2024-01-13] MEDS: D5W 5% 1,000 ML IV SCH (17:28)
--- NOTE | 2024-01-13 17:45 | DVH ---
Bilateral lower extremity venous duplex Clinical History: R/O DVT Comparison: None Technique: Duplex Doppler evaluation of the deep venous systems of both lower extremities from the common femora l veins to the popliteal veins including color Doppler and spectral/pulsed waveform analysis was perf ormed. Findings: RIGHT SIDE: The common femoral vein demonstrates appropriate compressibility and waveform variability. There is compressibility/patency of the great saphenous vein at the proximal thigh. The femoral vein demonstrates appropriate compressibility and waveform variability. The deep femoral vein demonstrates appropriate compressibility and waveform variability. The popliteal vein demonstrates appropriate compressibility and waveform variability. There is normal compressibility at the tibioperoneal trunk. LEFT SIDE: The common femoral vein demonstrates appropriate compressibility and waveform variability. There is compressibility/patency of the great saphenous vein at the proximal thigh. The femoral vein demonstrates appropriate compressibility and waveform variability. The deep femoral vein demonstrates appropriate compressibility and waveform variability. The popliteal vein demonstrates appropriate compressibility and waveform variability. There is normal compressibility at the tibioperoneal trunk. Impression: 1. No right or left femoropopliteal venous thrombosis. HS:Y
--- NOTE | 2024-01-13 17:48 | DVH ---
Bilateral Upper Extremity Venous Duplex Clinical History: R/O DVT Comparison: US BILAT LOWER DVT on DOS: 01/13/24 Technique: Duplex Doppler evaluation of the venous systems of the right and left lower neck and upper extremities including color Doppler and spectral/pulsed waveform analysis was performed. Findings: RIGHT SIDE: The internal jugular vein demonstrates appropriate compressibility and waveform variability. The subclavian vein is patent on color Doppler evaluation without intraluminal thrombus and demonstra lobito waveform variability. The visualized portion of the brachiocephalic vein is patent on color Doppler evaluation without intr aluminal thrombus and demonstrates waveform variability. The axillary vein demonstrates appropriate compressibility and waveform variability. The brachial vein is nonvisualized. The basilic vein demonstrates appropriate compressibility and patency on Doppler evaluation. The cephalic vein demonstrates incomplete compressibility and absence of flow. LEFT SIDE: The internal jugular vein demonstrates appropriate compressibility and waveform variability. The subclavian vein is patent on color Doppler evaluation without intraluminal thrombus and demonstra lobito waveform variability. The visualized portion of the brachiocephalic vein is patent on color Doppler evaluation without intr aluminal thrombus and demonstrates waveform variability. The axillary vein demonstrates appropriate compressibility and waveform variability. The brachial vein is not visualized. The basilic vein demonstrates appropriate compressibility and patency on Doppler evaluation. The cephalic vein is not visualized. Impression: 1. Occlusive thrombus within the right cephalic vein, which is part of the superficial venous system. No deep venous thrombus identified in the right or left upper extremity vessels evaluated above. 2. If clinical concern/symptoms persist or worsen, short-interval follow-up study is suggested. HS:Y
[2024-01-13] MEDS: TPN PER PHARMACY IV NR (21:26)
[2024-01-14] VITALS (39 sets, daily range): BP systolic 106–150; BP diastolic 56–109; PULSE 102–212; RESP 13–73; TEMP 99.1–99.9; O2SAT 91–100
[2024-01-14] MEDS: METOPROLOL TARTRATE 1MG/1ML-5ML VIAL IV ONE ×2 (04:40→04:41)
[2024-01-14 06:23] LABS: Eosinophils # (auto) 0 10 ^3/uL (0-0.8); Eosinophils % (auto) 0.1 % (0.0-7.0); Hemoglobin 8.2 g/dL (12.2-16.2); Lymphocytes # (auto) 1.1 10 ^3/uL (0.4-5.4)
[2024-01-14 06:25] LABS: Basophils # (auto) 0.1 10 ^3/uL (0-0.2); Basophils % (auto) 0.5 % (0.0-2.0); Hematocrit 26.3 % (36.0-46.0); Lymphocytes % (auto) 4.5 % (10.0-50.0); Mean Corpuscular Hemoglobin 24.2 pg (28.0-32.0); Mean Corpuscular Hgb Conc. 31.1 g/dL (32.0-36.0); Mean Corpuscular Volume 77.6 fL (80.0-100.0); Monocytes # (auto) 1.4 10 ^3/uL (0-1.3); Monocytes % (auto) 5.8 % (0.0-12.0); Neutrophils # (auto) 21.6 10 ^3/uL (1.6-8.6); Neutrophils % (auto) 89.1 % (37.0-80.0); Platelet Count (auto) 642 10^3/uL (140-450); Red Blood Cells 3.38 10^6/uL (4.0-5.20); White Blood Cell 24.3 10^3/uL (4.4-10.8)
[2024-01-14 06:30] LABS: Alanine Aminotransferase 94 U/L (7-40); Alkaline Phosphatase 264 U/L (46-116); Anion Gap 13 (5-15); Aspartate Aminotransferase 248 U/L (13-40); BUN/Creatinine Ratio 70.3 (10.0-20.0); Bilirubin, Total 5.5 mg/dL (0.2-1.0); Blood Urea Nitrogen 52 mg/dL (9-23); Calcium 8.7 mg/dL (8.7-10.4); Carbon Dioxide 24 mmol/L (20-31); Chloride 111 mmol/L (98-107); Glucose 143 mg/dL (74-106); Phosphorus 1.7 mg/dL (2.4-5.1); Potassium 3.3 mmol/L (3.5-5.1); Sodium 148 mmol/L (136-145); Total Protein 6.3 g/dL (5.7-8.2)
[2024-01-14 06:32] LABS: Red Cell Distribution Width 27.1 % (11.8-14.3)
[2024-01-14 06:44] LABS: Lactic Acid w/Reflex 5.3 mmol/L (0.4-2.0)
[2024-01-14] MEDS ORDERED: VANCOMYCIN PER PHARMACY 0 MG IV SCH (07:00)
[2024-01-14] MEDS ORDERED: VANCOMYCIN 1GM/250ML KIT 200 ML IV SCH (07:30)
[2024-01-14 08:18] LABS: Target Cell FEW
[2024-01-14 08:19] LABS: Anisocytosis Slight; Hypochromia Moderate
[2024-01-14 08:20] LABS: Platelet Estimate Increased
[2024-01-14] MEDS: POTASSIUM CHL 20MEQ/100ML 100 ML IV SCH (08:35)
[2024-01-14] MEDS: NOREPINEPHRINE 8 MG/250ML KIT 250 ML IV ONE (08:42)
[2024-01-14] MEDS: POTASSIUM CHLORIDE 40 MEQ, LIDOCAINE 1% (LOCAL ANESTH.) 4 ML in SODIUM CHL 0.9% 250 ML IV ONE (09:00)
[2024-01-14] MEDS: VANCOMYCIN 1.5GM/300ML 300 ML IV ONE (09:30)
--- NOTE | 2024-01-14 10:53 | DVHPN2 ---
Progress Note - Dictate Date Seen: Jan 14, 2024 Medical Necessity Reason Pt with a Central, PICC or Fol: Yes The following are medically ne: PICC Line, Davies Catheter Reason for davies catheter: Strict I&O Subjective Patient was seen and examined at bedside. She is sedated, intubated on mechanical ventilator. Patient's heart rate sustained in the 140-160. 12 lead EKG done, showed sinus tach. s/p pelvic fluid aspiration not tolerated CPAP trial Antibiotic status: Vancomycin HCl 200 ml @ 200 mls/hr - [Started 12/31 - 01/07] Meropenem 50 ml @ 17 mls/hr - [Started - 01/02 - stopped] vital signs Vital Sign Date Time Temp Pulse Resp B/P (MAP) Pulse Ox O2 Delivery O2 Flow Rate FiO2 01/14/24 07:00 130 36 134/57 (82) 93 01/14/24 06:00 Nasal Cannula* 2 28 01/14/24 04:00 99.1 99.1 Total Intake and Output 01/13/24 01/13/24 01/14/24 15:00 23:00 07:00 Intake Total 1149.603 ml 943 ml 1028 ml Output Total 1450 ml 1250 ml Balance 1149.603 ml -507 ml -222 ml medications Current Medications Medications Dose Ordered Sig/Saige Route Start Time Stop Time Status Last Admin Dose Admin Sodium Chloride 10 ml Q8HR IV 12/17/23 22:00 01/14/24 05:51 10 ML Nitroglycerin 0.4 mg Q5MINP PRN SL 12/25/23 16:00 Pantoprazole Sodium 40 mg DAILY IV 12/26/23 10:00 01/13/24 09:45 40 MG Ipratropium [place] 0.5 mg Q6HR NEB 12/27/23 18:00 Cancel Amino Acids 0 ml @ 0 mls/hr PER PHARMACY IV 12/28/23 12:00 Diagnostic Test (Pha) 1 strip Q6HR 12/28/23 18:00 01/14/24 05:21 1 STRIP Insulin Human Regular FOLLOW SLIDING SCALE Q6HR SC 12/28/23 18:00 01/14/24 05:51 2 UNITS Dextrose 50 ml UD IV 12/28/23 13:00 Insulin Glargine 15 units DAILY@1000 SC 12/29/23 12:15 01/12/24 09:56 15 UNITS Furosemide 40 mg TID IV 01/05/24 14:00 01/14/24 05:55 40 MG Sodium Chloride 10 ml QSHIFT@10,22 IV 01/05/24 22:00 01/14/24 10:16 10 ML Enoxaparin Sodium 40 mg DAILY SC 01/13/24 10:00 01/13/24 09:47 40 MG Metoclopramide HCl 10 mg Q8HR IV 01/12/24 22:00 01/14/24 05:48 10 MG Fat Emulsion Intravenous 50 ml/ Potassium Acetate 80 meq/Potassium Phosphate 22 meq/ Magnesium Sulfate 2 meq/ Multivitamins 10 ml/Amino Acids/ Dextrose/Purified Water 1,305.5 ml @ 54 mls/hr [id number] IV 01/13/24 22:00 01/14/24 21:59 01/13/24 21:26 54 MLS/HR Dextrose 1,000 ml @ 100 mls/hr Q10H IV 01/13/24 15:30 01/14/24 01:30 100 MLS/HR Acetaminophen 1,000 mg Q8HP PRN IV 01/13/24 18:00 01/14/24 03:47 1,000 MG Potassium Chloride 100 ml @ 50 mls/hr Q2H IV 01/14/24 07:00 01/14/24 10:59 01/14/24 08:35 50 MLS/HR Vancomycin HCl 0 ml @ 0 mls/hr UD IV 01/14/24 07:00 Meropenem 50 ml @ 17 mls/hr Q8H IV 01/14/24 18:00 Vancomycin HCl 200 ml @ 200 mls/hr Q12H IV 01/14/24 21:00 Fat Emulsion Intravenous 50 ml/ Potassium Acetate 80 meq/Potassium Phosphate 44 meq/ Magnesium Sulfate 4 meq/ Multivitamins 10 ml/Amino Acids/ Dextrose/Purified Water 1,311 ml @ 54 mls/hr [id number] IV 01/14/24 22:00 01/15/24 21:59 objective General.: Patient lying in bed in medical ICU. Sedated, intubated on mechanical ventilator. Head: Normocephalic, atraumatic. Eyes: PERRLA. Ears: Normal external anatomy. Throat: Endotracheal tube and orogastric tube in place. Neck: Supple, trachea midline. Chest: Transmitted breath sounds bilaterally. Decreased air entry bilaterally. No wheezing. Bibasilar crackles. Cardiovascular: Positive S1, positive S2. Regular rate and rhythm. Abdomen: Positive bowel sounds in all 4 quadrants. Soft, nontender, nondistended. : Davies in place. Normal external genitalia. Rectal: Deferred. Skin: Warm, dry. Intact. Extremities: 2+ radial pulses bilaterally. +4 pitting edema. Neuro: Sedated. laboratory and microbiology Laboratory Tests 01/14/24 05:53 Test 01/14/24 05:53 Range/Units Serum Glucose 143 H 74-106 mg/dL Assessment/Plan Patient is a 64-year-old female presents to the hospital with: low grade fever with leucocytosis septic shock vs distributive shock : resolved leucocytosis ? stress induced vs sepsis vs reactive Ventilator associated Pneumonia : [place] large bowel obstruction s/p colectomy s/p end to end anastomosis 12/24 possible colon cancer with mets ascites: malignant vs post surgical vs infection Liver mets acute hypoxic respiratory failure on mechanical ventilation CHF anasarca Recommendations: antibiotics restarted, CT abdomen/ pelvis ordered monitor wbc repeat cultures sputum cx enterobacter cloace; s/p treatment on levaphed ( minimal) chest x-ray reviewed 01/12: There are low lung volumes. Support lines and tubes appear unchanged in satisfactory position. Patchy airspace opacity in the right lower lobe likely represents atelectasis. No sizable effusion or pneumothorax. Urine culture: Negative Sputum culture: Positive pelvic fluid cultures are neg 01/06: body fluid cultures : few WBC seen , no organisms 01/05, Blood culture: No growth 01/05, Urine culture: No growth 01/04, Aerobic culture: No growth 12/29 : sputum culture notable for Enterobacter cloacae. CT pelvic wo contrast done on 01/06 : CT guided needle/catheter placement into the low pelvic fluid collection with aspiration of 1-2 mL of yellow serous fluid. No drain was placed. overall prognosis is very poor with mets, crit time 35 minutes in co ordination of care Thank you for the consult and for giving an opportunity to take care of this patient. Dietary Evaluation Review Comments: 1) Advance pt diet when medically feasible to a Cardiac diet 2) Continue current plan of care Expected Outcomes/Goals: 1) F/U in 3-5 days Plan discussed with: Other MALLAD,JASPREET V MD Jan 14, 2024 10:53
--- NOTE | 2024-01-14 10:56 | DVHPN2 ---
Progress Note Date Seen: Jan 14, 2024 Medical Necessity Reason Pt with a Central, PICC or Fol: Yes The following are medically ne: PICC Line, Davies Catheter Reason for davies catheter: Strict I&O Objective vital signs Vital Sign Date Time Temp Pulse Resp B/P (MAP) Pulse Ox O2 Delivery O2 Flow Rate FiO2 01/14/24 07:00 130 36 134/57 (82) 93 01/14/24 06:00 Nasal Cannula* 2 28 01/14/24 04:00 99.1 99.1 Total Intake and Output 01/13/24 01/13/24 01/14/24 15:00 23:00 07:00 Intake Total 1149.603 ml 943 ml 1028 ml Output Total 1450 ml 1250 ml Balance 1149.603 ml -507 ml -222 ml medications Current Medications Medications Dose Ordered Sig/Saige Route Start Time Stop Time Status Last Admin Dose Admin Sodium Chloride 10 ml Q8HR IV 12/17/23 22:00 01/14/24 05:51 10 ML Nitroglycerin 0.4 mg Q5MINP PRN SL 12/25/23 16:00 Pantoprazole Sodium 40 mg DAILY IV 12/26/23 10:00 01/13/24 09:45 40 MG Ipratropium [place] 0.5 mg Q6HR NEB 12/27/23 18:00 Cancel Amino Acids 0 ml @ 0 mls/hr PER PHARMACY IV 12/28/23 12:00 Diagnostic Test (Pha) 1 strip Q6HR 12/28/23 18:00 01/14/24 05:21 1 STRIP Insulin Human Regular FOLLOW SLIDING SCALE Q6HR SC 12/28/23 18:00 01/14/24 05:51 2 UNITS Dextrose 50 ml UD IV 12/28/23 13:00 Insulin Glargine 15 units DAILY@1000 SC 12/29/23 12:15 01/12/24 09:56 15 UNITS Furosemide 40 mg TID IV 01/05/24 14:00 01/14/24 05:55 40 MG Sodium Chloride 10 ml QSHIFT@ IV 01/05/24 22:00 01/14/24 10:16 10 ML Enoxaparin Sodium 40 mg DAILY SC 01/13/24 10:00 01/13/24 09:47 40 MG Metoclopramide HCl 10 mg Q8HR IV 01/12/24 22:00 01/14/24 05:48 10 MG Fat Emulsion Intravenous 50 ml/ Potassium Acetate 80 meq/Potassium Phosphate 22 meq/ Magnesium Sulfate 2 meq/ Multivitamins 10 ml/Amino Acids/ Dextrose/Purified Water 1,305.5 ml @ 54 mls/hr [id number] IV 01/13/24 22:00 01/14/24 21:59 01/13/24 21:26 54 MLS/HR Dextrose 1,000 ml @ 100 mls/hr Q10H IV 01/13/24 15:30 01/14/24 01:30 100 MLS/HR Acetaminophen 1,000 mg Q8HP PRN IV 01/13/24 18:00 01/14/24 03:47 1,000 MG Potassium Chloride 100 ml @ 50 mls/hr Q2H IV 01/14/24 07:00 01/14/24 10:59 01/14/24 08:35 50 MLS/HR Vancomycin HCl 0 ml @ 0 mls/hr UD IV 01/14/24 07:00 Meropenem 50 ml @ 17 mls/hr Q8H IV 01/14/24 18:00 Vancomycin HCl 200 ml @ 200 mls/hr Q12H IV 01/14/24 21:00 Fat Emulsion Intravenous 50 ml/ Potassium Acetate 80 meq/Potassium Phosphate 44 meq/ Magnesium Sulfate 4 meq/ Multivitamins 10 ml/Amino Acids/ Dextrose/Purified Water 1,311 ml @ 54 mls/hr [id number] IV 01/14/24 22:00 01/15/24 21:59 laboratory and microbiology Laboratory Tests 01/14/24 05:53 Test 01/14/24 05:53 Range/Units Serum Glucose 143 H 74-106 mg/dL Problem List/Assessment/Plan Problem List/Assessment/Plan 01/06/[address] Aditi BUCKLEY, ABDOMEN APPEARS TO BE TENDER IN THE LEFT LOWER QUADRANT, WOUND IS CLEAN AND WELL APPROXIMATED, DRAINAGE FROM LOWER PORTION OF MIDLINE WOUND.AWAITING ir intervention 01/07/24 essentially unchanged, continues hypotensive with leukocytosis, abdomen "full", no BM or flatus reported, spoke to interventional radiologist, he will proceed with drainage of pelvic fluid collection via transgluteal approach 01/08/24 slightly improved, discussed pelvic fluid drainage with radiologist,abdomen soft, non distended, continue current treatments 01/09/24 slightly improved, abdomen less tense, wound clean ,drainage clear, good urine output, less pressors requirement 01/10/24 wbc slightly better, wound ok, abdomen soft and non distended, no BM, will add reglan, once she passes flatus NG tube can be DC'd 01/11/24 'S QUESTIONS ANSWERED, SHE CONTINUES UNCHANGED, WOUND CLEAN ,ABDOMEN NON DISTENDED 01/12/24 abdomen non distended, appears non tender()pt awakens), wound clean and well approximated, undergoing CPAP trial 01/14/24 abdomen benign, sepsis persists, will get gastrografin small bowel series in hope of starting po intake Plan discussed with: Other Dietary Evaluation Review Comments: 1) Advance pt diet when medically feasible to a Cardiac diet 2) Continue current plan of care Expected Outcomes/Goals: 1) F/U in 3-5 days ASPEN EUBANKS MD Jan 14, 2024 10:56
[2024-01-14 11:39] LABS: Urine Bacteria None Seen /hpf (None Seen)
[2024-01-14 11:51] LABS: Urine Blood 1+ /uL (Negative); Urine Clarity Clear (Clear); Urine Color Dark-Yellow (Yellow); Urine Hyaline Cast FEW /lpf (0 - 2); Urine Protein, UAD 1+ (Negative); Urine Specific Gravity 1.017 (1.001-1.035); Urine Urobilinogen Normal (Negative); Urine WBC 2 /hpf (0 - 5); Urine pH 5.5 (5.0-9.0)
[2024-01-14] MEDS: MEROPENEM 1GM IVPB 50 ML IV ONE (12:51)
[2024-01-14] MEDS: ALBUMIN 25% 100 ML IV SCH (13:37)
[2024-01-14] MEDS: IOHEXOL 300 MG/ML 100ML BOTTLE IJ ONE (14:00)
[2024-01-14 14:02] LABS: INR 2.06 (0.9-1.15); Prothrombin Time 20.7 sec (9.3-11.8)
[2024-01-14 14:11] LABS: Lactic Acid w/Reflex 3.4 mmol/L (0.4-2.0)
--- NOTE | 2024-01-14 14:25 | DVH ---
EXAM: CT HEAD WITHOUT CONTRAST INDICATION: AMS TECHNIQUE: CT of the head without intravenous contrast. Radiation Dose Information: CT Dose: CTDI volume is 57.50 mGy. Dose-length product is 1131.37 mGy*cm The dose indicators for CT are the volume Computed Tomography (CT) Dose Index (CTDIvol) and the Dose Length Product (DLP), and are measured in units of mGy and mGy-cm, respectively. These indicators are not patient dose, but values generated from the CT scanner acquisition factors. The report includes radiation exposure data for exposures received during this examination. COMPARISON: CT HEAD WITHOUT CONTRAST on DOS: 01/02/24 FINDINGS: There is no evidence of acute intracranial hemorrhage, extra-axial collection, mass effect, midline s hift, herniation or hydrocephalus. The ventricles, sulci and cisterns are age appropriate. The simmons-white differentiation is intact. Patchy periventricular and subcortical white matter hypoattenuation is nonspecific but may be related to small vessel ischemic disease. The visualized paranasal sinuses and mastoid air cells are clear. The surrounding soft tissues and osseous structures are unremarkable. IMPRESSION: 1. No CT evidence of acute intracranial abnormality. HS:Y
[2024-01-14] MEDS: GASTROGRAFIN 120 ML SOL ONE (14:58)
[2024-01-14] MEDS: FUROSEMIDE 40 MG/4 ML VIAL IV SCH (15:10)
--- NOTE | 2024-01-14 15:58 | DVH ---
Exam: CT CT CHEST/AB/PL W CON- IV ONLY History: SEPSIS EVAL COLECTION Comparison Study: None available at time of dictation. Technique: Multidetector spiral CT of the chest, abdomen and pelvis was performed from lower neck to pubic symphysis. 100 cc Omni 300 intravenous contrast was administered during this examination. Port al venous imaging was obtained. Axial, coronal and sagittal multiplanar reformats were performed by the technologist on a separate workstation. Radiation Dose : Chest/Abdomen/Pelvis: CTDIvol 79 mGy, DLP 2700 mGy*cm. Findings: Exam is limited by motion artifact. Lower neck: Nasogastric tube in place Lungs: Small right pleural effusion. Bibasilar atelectasis and consolidation. Heart/Vascular Structures: Normal heart size. No pericardial effusion. Lymph Nodes: No adenopathy Pleura: Small right pleural effusion. Liver: Numerous peripherally enhancing masses throughout the liver, largest in the right lobe of the liver measures up to 182 mm. Gallbladder and biliary Tree: Unremarkable Spleen: Unremarkable Pancreas: The pancreas is normal in appearance without focal lesions or abnormal enhancement. Adrenal Glands: Unremarkable Kidneys: Kidneys demonstrate normal symmetric enhancement without focal lesions, calculi or hydroneph rosis. Bladder: Bladder is decompressed with a Azar catheter and cannot be adequately assessed. Bowel: The stomach is grossly normal in appearance. Postsurgical changes in the colon. Nonspecific ga seous distention of bowel. The appendix is not visualized; however, no secondary findings of acute a ppendicitis identified. Ascites: Small amount of perihepatic ascites. Lymphadenopathy: Shotty retroperitoneal lymphadenopathy. Abdominal wall and Mesentery: There is a fluid and air collection in the mid abdomen with some high d ensity measuring up to 77 x 109 mm. This collection is near the area of postsurgical changes in the c olon. Diffuse anasarca. Vasculature: The visualized abdominal aorta is normal in size and caliber. Abdominal and pelvic vess els demonstrate normal enhancement. Pelvic Organs: The uterus is surgically absent. Musculoskeletal: No aggressive focal bony lesions, acute fractures or dislocation. IMPRESSION: 1. Large fluid and air collection in the central pelvis near an area of postsurgical changes in the c olon suspect this represents a bowel leak with abscess formation. Consider CT-guided drainage. 2. Numerous masses replacing the liver. Largest is in the right lobe measuring up to 182 mm. Most li reji these are malignant lesions. Abscesses could have a similar appearance. CT-guided biopsy could b e performed. Clinical correlation and continued follow-up is recommended. 3. Right pleural effusion with bilateral pneumonia. HS:Y
[2024-01-14] MEDS ORDERED: LORazepam 2MG/ML-1ML VIAL IV PRN (16:45)
--- NOTE | 2024-01-14 17:51 | DVHPNRES ---
Progress Note Date Seen: Jan 14, 2024 Resident Creating Document: EZEQUIEL CONTRERAS RESIDENT Medical Necessity Reason Pt with a Central, PICC or Fol: Yes The following are medically ne: PICC Line, Davies Catheter Reason for davies catheter: Strict I&O Subjective Review of Systems Nirali Mina is a 63 year old female patient who presents to the ED with complaint of constant oppressive suprapubic abdominal pain, nausea, chills and constipation which lasted approximately a week before her admission, associated with tenesmus and hold small pellet stools associated weakness in a lot of flatus. Patient also reports history of internal hemorrhoids and she has experienced bright red bleed from rectum few days before her admission. She denies history of colonoscopy/endoscopy. Denies palpitation, syncope, chest pain, dyspnea, fever, diarrhea, vomiting, dysuria, sick contacts and motor or sensory deficits. Past medical history: Dyslipidemia, hypertension, Cardiac arrest with ventricular arrhythmia (V-tach/VFib) on January 2018 status post PCI with stent placement and ICD for secondary prevention, ischemic cardiomyopathy, HFrEF (LVEF 35% on September 2023), recurrent UTIs with pyelonephritis four months ago, internal hemorrhoids. Surgical history: January 2018 PCI with stent placement, in ICD placement, partial hysterectomy Family history: Noncontributory Social history: Lives with in [place]. Denies current tobacco, alcohol and other drug abuse. Patient did drink heavily during recent vacation in [facility] Allergies: Lisinopril, morphine Home medication: Aspirin 81 mg p.o. daily, atorvastatin 80 mg p.o. daily, empagliflozin 10 mg p.o. daily, metoprolol 25 mg p.o. daily, Entresto one tablet p.o. b.i.d., temazepam 50 mg p.o. p.r.n.. PCP Jodie Rico, Diesel Power Mechanic: Slava, Fusion Operator Dr Schrader Patient seen and examined at bedside. Currently is nonverbal, mike, GCS 14/15. Patient febrile, tachycardic, persistent leukocytosis. Ordered abdomen and pelvis CT which evidence pelvic abscess. enrollment specialist suggested Gastrografin study to evaluate bowel activity. Completed bedside ultrasound which evidence fluid overload. Objective vital signs Vital Sign Date Time Temp Pulse Resp B/P (MAP) Pulse Ox O2 Delivery O2 Flow Rate FiO2 01/14/24 16:00 127 01/14/24 16:00 27 96 Nasal Cannula* 3 32 01/14/24 16:00 148/92 (110) 01/14/24 12:00 99.1 99.1 Total Intake and Output 01/13/24 01/13/24 01/14/24 15:00 23:00 07:00 Intake Total 1149.603 ml 943 ml 1182 ml Output Total 1450 ml 1250 ml Balance 1149.603 ml -507 ml -68 ml medications Current Medications Medications Dose Ordered Sig/Asige Route Start Time Stop Time Status Last Admin Dose Admin Sodium Chloride 10 ml Q8HR IV 12/17/23 22:00 01/14/24 14:43 10 ML Nitroglycerin 0.4 mg Q5MINP PRN SL 12/25/23 16:00 Pantoprazole Sodium 40 mg DAILY IV 12/26/23 10:00 01/14/24 11:02 40 MG Ipratropium [place] 0.5 mg Q6HR NEB 12/27/23 18:00 Cancel Amino Acids 0 ml @ 0 mls/hr PER PHARMACY IV 12/28/23 12:00 Diagnostic Test (Pha) 1 strip Q6HR 12/28/23 18:00 01/14/24 17:37 1 STRIP Insulin Human Regular FOLLOW SLIDING SCALE Q6HR SC 12/28/23 18:00 01/14/24 17:39 2 UNITS Dextrose 50 ml UD IV 12/28/23 13:00 Insulin Glargine 15 units DAILY@1000 SC 12/29/23 12:15 01/12/24 09:56 15 UNITS Sodium Chloride 10 ml QSHIFT@10,22 IV 01/05/24 22:00 01/14/24 10:16 10 ML Enoxaparin Sodium 40 mg DAILY SC 01/13/24 10:00 01/14/24 12:50 40 MG Metoclopramide HCl 10 mg Q8HR IV 01/12/24 22:00 01/14/24 14:54 10 MG Fat Emulsion Intravenous 50 ml/ Potassium Acetate 80 meq/Potassium Phosphate 22 meq/ Magnesium Sulfate 2 meq/ Multivitamins 10 ml/Amino Acids/ Dextrose/Purified Water 1,305.5 ml @ 54 mls/hr [id number] IV 01/13/24 22:00 01/14/24 21:59 01/13/24 21:26 54 MLS/HR Dextrose 1,000 ml @ 100 mls/hr Q10H IV 01/13/24 15:30 01/14/24 15:32 100 MLS/HR Acetaminophen 1,000 mg Q8HP PRN IV 01/13/24 18:00 01/14/24 03:47 1,000 MG Vancomycin HCl 0 ml @ 0 mls/hr UD IV 01/14/24 07:00 Meropenem 50 ml @ 17 mls/hr Q8H IV 01/14/24 20:00 Vancomycin HCl 200 ml @ 200 mls/hr Q12H IV 01/14/24 21:00 Fat Emulsion Intravenous 50 ml/ Potassium Acetate 80 meq/Potassium Phosphate 44 meq/ Magnesium Sulfate 4 meq/ Multivitamins 10 ml/Amino Acids/ Dextrose/Purified Water 1,311 ml @ 54 mls/hr [id number] IV 01/14/24 22:00 01/15/24 21:59 Albumin Human 100 ml @ 100 mls/hr Q8H IV 01/14/24 11:15 01/15/24 04:14 01/14/24 13:37 100 MLS/HR Furosemide 40 mg TID IV 01/14/24 14:00 01/14/24 15:10 40 MG Lorazepam 0.5 mg Q6HP PRN IV 01/14/24 16:45 Examination Patient lying in bed, in no acute distress General: Mike, alert, nonverbal, febrile, mucosae are moist Cardiovascular: Normal S1 and S2. No murmurs, gallops or rubs Respiratory: Regular ventilation mechanics due to tachypnea, use of accessory muscles (intercostal muscles). Bilateral rales predominantly on right base, rest of auscultation clear Abdomen: Distended, nontender, hepatomegaly, reduced bowel sounds MSK/skin: Mobilizes 4 limbs. Skin is dry and warm. Bilateral lower limb pitting edema +3 up to growing, abdomen has ascitic wave Neurological: Orientation can not be assessed. No motor no sensitive deficits. Pupils are isocoric and reactive laboratory and microbiology Laboratory Tests 01/14/24 05:53 Test 01/14/24 05:53 Range/Units Serum Glucose 143 H 74-106 mg/dL Microbiology Date/Time Source Procedure Growth Status 01/12/24 16:14 Blood Blood Culture - Preliminary NO GROWTH AFTER 48 HOURS OF INCUBATION. Resulted 01/12/24 16:13 Sputum Gram Stain - Final Complete 01/12/24 16:13 Respiratory Culture - Final Enterobacter cloacae Complete 01/12/24 14:50 Urine - Davies [place] Urine Culture - Final Complete 01/07/24 15:20 Aspirate Gram Stain - Final Complete 01/07/24 15:20 Aspirate Body Fluid Culture - Final Complete 01/05/24 22:00 Catheter Tip Aerobic Culture - Final Complete 12/18/23 13:03 Stool Stool Culture - Final Complete 12/18/23 13:03 Stool Shiga Toxin I & II - Final Complete Problem List/Assessment/Plan Problem List/Assessment/Plan Neurology Metabolic encephalopathy probably secondary to sepsis Currently patient is intubated Currently under empiric IV antibiotic (meropenem and vancomycin) Completed multiple head CTs with no acute intracranial pathology Cardiovascular Acute on chronic systolic congestive heart failure (HFrEF, LVEF 35%)-status post ICD placement Indicated albumin 25% t.i.d. x3 followed by IV furosemide 40 mg Completed point of care ultrasound at bedside: Evidence fluid overload with pulmonary comments. Echocardiogram during this admission: Severely reduced LVEF, 35%, anterior anteroapical wall akinesia, moderately reduced RV systolic function, rest of study within normal limits. History of coronary artery disease with cardiac arrest (VFib/V-tach) - status post PCI with stent placements Currently aspirin on hold (INR of 2). Completed stress test which showed no ischemia, multiple territories of infarcts NSTEMI type 2 Secondary to septic shock. Stress test negative for ischemia Respiratory Acute respiratory failure Patient during a.m. was on nasal cannula at 3 liters/minute. During Gastrografin study patient aspirated, currently is intubated on 01/14/2024 (VCV VT 450, RR 22, peep five, FiO2 50%) Completed new bronchoscopy 01/14/2024 since samples for culture and pathology. Aspiration pneumonia Secondary to Gastrografin study. Required endotracheal intubation on 01/14/2024 and bronchoscopy, pending culture and pathology. Multiple pneumonia secondary to Enterobacter cloacae Completed multiple courses of antibiotics Gastrointestinal Bowel obstruction secondary to sigmoid adenocarcinoma with hepatic metastasis - status post colectomy with terminal-terminal anastomosis Completed colectomy with terminal terminal anastomosis on 12/25/2023, with previous cardiological clearance. Patient on TPN due to presence of pelvic abscess. enrollment specialist on board: Suggested Gastrografin study to evaluate bowel motility Pelvic abscess - status post failed percutaneous drainage Completed new abdomen and pelvis CT with contrast which shows abscess and pelvic area. Interventional radiologist consulted suggesting new drainage on Friday01/19/2024 Hepatomegaly secondary to liver metastasis due to sigmoid adenocarcinoma Monitor CMP and coagulation Transaminitis Secondary to above Genitourinary/Nephrology History of multiple UTIs Last urine culture with no evidence of bacterial growth Hypernatremia Currently on D5W 100ml/h Infectious Disease Septic shock probably secondary to aspiration pneumonia versus pelvic abscess - resolved Required maximum dose of vasopressors (four IV vasopressors). Currently with no IV vasopressors Completed multiple courses of antibiotic (febrile since tazobactam for two days, ceftriaxone for one day, vancomycin previously for 12 days, meropenem previously four 12 days) Multiple cultures completed, only positive 3 times sputum for Enterobacter cloacae (pelvic fluid, blood, and urine culture negative) Id specialist on board Persistent sepsis probably secondary to pelvic acid Completed new abdomen and pelvis CT with contrast which evidence abscess and pelvic area. Interventional radiologist consulted suggesting new drainage on Friday01/19/2024 Currently under empiric IV antibiotic (vancomycin and meropenem) Hematology Persistent leukocytosis Probably secondary to pelvic abscess Coagulopathy secondary to sepsis INR on 01/14/2024 approximately two. We will hold enoxaparin and aspirin Nutrition: TPN, no enteral feeding until bowel motility evaluated (has to be cleared by control systems specialist) Prophylaxis for PUD and DVT: Currently on pantoprazole and SCDs Lines Left arm PICC line placed on 01/07/2024 New Davies catheter 01/14/2024 ET tube 01/14/2024 Juan Versed Fentanyl Goals of care discussed with family and patient for over 18 minutes: Full code status Discussed plan with Dr. Heath, patient, family and nurses: While completing Gastrografin study to evaluate bowel motility suggested by control systems specialist, patient aspirated. Discussed with family for elective intubation and bronchoscopy, patient's spouse agreed to endotracheal intubation. Patient persists with sepsis probably secondary to pelvic abscess, completed new CT which evidence pelvic abscess, consulted interventional radiologist who agreed to eventual drainage on Friday01/19/2024. Patient presents fluid overload, indicated albumin 25% x3 followed by furosemide. Overall patient has poor prognosis, have discussed with family. Critical care time excluding procedures: 78 minutes Plan discussed with: Patient, Spouse, Other (Nurses) My Orders My Orders Orders - EZEQUIEL CONTRERAS RESIDENT Procedure Category Date Status Time Urine Bacterial TONYA 01/14/24 In Process Culture 10:[address] 01/14/24 Resulted 11:06 Place Ng ORDERS 01/14/24 Transmitted 11:06 Insert Davies Catheter DELORES 01/14/24 In Process 11:06 D/C Davies DELORES 01/14/24 In Process 11:06 Cortisol Am LAB 01/14/24 Logged 11:06 Albumin 25% (Albutein) PHA 01/14/24 In Process 11:15 Furosemide Injection PHA 01/14/24 In Process (Lasix Injection) 14:00 Urine Dip ED NURSING 01/14/[address] Chest/Ab/Pl W Con- CT 01/14/24 Resulted Iv Only 11:19 * Radiologist Consult CONS 01/14/24 Transmitted 14:50 Dietary Evaluation Review Comments: 1) Advance pt diet when medically feasible to a Cardiac diet 2) Continue current plan of care Expected Outcomes/Goals: 1) F/U in 3-5 days Date of Service: Jan 14, 2024 Billing Provider: ROXY HEATH MD Common Visit Codes: [id number] INP/OBS CARE(HIGH), [id number] CARE 30-74 MIN, [id number] CARE-EACH +30MIN Coding Comment Comment Attending Attestation I saw and evaluated the patient. I reviewed the residents note and agree with findings and plan as documented in the residents note except as documented below. Discussed with surgery, patient with questionable bowel activity, given Gastrografin and bowel series. Patient later found to have acute hypoxic respiratory failure likely 2/2 aspiration, patient was reintubated and transfered to ICU for further care 112 minutes critical care time spent on this patient including evaluation, chart review, formulating plan and communication with team, excluding any procedures or point of care imaging EZEQUIEL CONTRERAS RESIDENT Jan 14, 2024 17:51 ROXY HEATH MD Jan 15, 2024 22:16
[2024-01-14] MEDS: ETOMIDATE (2MG/ML) 20ML VIAL IV ONE ×2 (18:25→18:43)
[2024-01-14] MEDS: ROCURONIUM 10MG/ML 10ML VIAL IV ONE ×2 (18:25→18:43)
[2024-01-14] MEDS: fentaNYL Drip 2500mCg/250mlNS 250 ML IV ONE (18:30)
--- NOTE | 2024-01-14 18:40 | DVHNC2 ---
JO ANN HERRERA RESDIENT 01/14/24 1840: Procedure - Endotracheal Intubation Procedure Note INDICATION: acute respiratory failure with respiratory rate more that 30 per /min with excessive use of respiratory muscles PROCEDURE CONSOLIDATION ACCOUNTANT: Resident Yolanda ATTENDING PHYSICIAN: Dr. Kitchen CONSENT: During the informed consent discussion regarding the procedure, I explained the following to the patients : * Nature of the procedure and who will perform the procedure * Necessity for procedure and the possible benefits. * Risks and complications (most common and serious). * Problems that might occur during the recuperation. PROCEDURE SUMMARY: A time out was performed. My hands were washed immediately prior to the procedure. I wore a surgical cap, mask with protective eyewear, gown and gloves throughout the procedure. The patient was placed on a park superintendent including continuous pulse oximetry. Rapid Sequence Intubation was conducted. The patient received 16 mg mg of etomidate for induction and 50 mg of rocuronium for adequate paralysis. Cricoid pressure was maintained from time induction agent was given to time of cuff balloon inflation. Using a GlideScope and a size 7.5 endotracheal tube with stylet, the patient was intubated on the first attempt. The stylet was removed and cuff balloon was inflated. Appropriate endotracheal tube position was confirmed by direct visualization of vocal cord passage, fogging of the tube, CO2 colormetric indicator and symmetric breath sounds. The tube was secured at 22 cm at the lips. Post intubation chest x-ray shows proper position of ETT and no obvious complication. DAYSI KITCHEN MD 01/17/242054: Procedure - I was present for the intubation of this patient and supervised Dr Serna perform the procedure. JO ANN HERRERA RESDIENT Jan 14, 2024 18:40 DAYSI KITCHEN MD Jan 17, 2024 20:55
[2024-01-14] MEDS: fentaNYL Drip 2500mCg/250mlNS 250 ML IV SCH (18:49)
--- NOTE | 2024-01-14 18:56 | DVH ---
Procedure: XY SMALL BOWEL SERIES-W GASTROGRA Reason for study/Clinical History: persistent post op ileus Comparison Study: CT chest abdomen pelvis from 01/14/2024 Technique: Single contrast small bowel series performed. 120 mL Gastrografin was administered via NG tube FINDINGS/IMPRESSION: Initial electrogalvanizing machine operator view of the abdomen and pelvis appears demonstrates contrast within the colon in the pe lvis. Midline skin maureen are seen. There is gas distention of small and large bowel loops. A gastr ostomy tube projects over the body of the stomach Contrast was administered via NG tube into the stomach and opacifies the stomach and central small hector wel loops. The patient was reportedly unable to lie flat and 180 mL was suctioned via the NG tube as there was a concern for aspiration. Given the termination of the study due to patient factors this study is not optimal to evaluate for s mall bowel obstruction.
[2024-01-14] MEDS: NOREPINEPHRINE 8 MG/250ML KIT 250 ML IV SCH (19:30)
--- NOTE | 2024-01-14 19:48 | DVH ---
CHEST RADIOGRAPH Indication: INTUBATED Technique: Single frontal view of the chest was obtained Comparison: XY CHEST XRAY 1 VIEW on DOS: 01/13/24, XY CHEST PORTABLE on DOS: 01/12/24, XY CHEST SPIKE BLE on DOS: 01/11/24 FINDINGS: Lines and Tubes: Endotracheal and enteric tubes are in satisfactory position. Left-sided approach hina l lead AICD terminating within right atrium and right ventricle Lungs: Bronchovascular crowding due to low lung volumes. Mild cardiomegaly. Right lower lung zone [place] with indistinctness of the right costophrenic angle. No pneumothorax. Cardiomediastinal contours: Unremarkable Bones: No acute osseous abnormality. IMPRESSION: Endotracheal and enteric tubes are in satisfactory position. Small right-sided pleural effusion with associated atelectasis. Underlying pneumonia can not be excl uded.
[2024-01-14 20:20] LABS: Base Excess -0.9 mmol/L (-2.0-3.0)
[2024-01-14] MEDS: MEROPENEM 1GM IVPB 50 ML IV SCH (20:28)
[2024-01-14] MEDS: MIDAZOLAM DRIP 50 mg/50mL 50 ML IV SCH (20:58)
[2024-01-14] MEDS: VANCOMYCIN 1GM/250ML KIT 200 ML IV SCH (21:38)
[2024-01-14] MEDS: TPN PER PHARMACY IV NR (21:48)
[2024-01-14] MEDS: BUDESONIDE (INHALATION) 0.5 MG/2 ML NEB NEB PRN (22:13)
[2024-01-14] MEDS: IPRATROPIUM BROM 0.5 MG/2.5ML INH SOL NEB PRN (22:14)
--- NOTE | 2024-01-14 23:10 | DVHPN2 ---
Progress Note - Dictate Date Seen: Jan 14, 2024 Medical Necessity Reason Pt with a Central, PICC or Fol: Yes The following are medically ne: PICC Line, Davies Catheter Reason for davies catheter: Strict I&O Subjective Patient seen and examined at bedside. Sedated, intubated on mechanical ventilator. Overnight events reviewed. vital signs Vital Sign Date Time Temp Pulse Resp B/P (MAP) Pulse Ox O2 Delivery O2 Flow Rate FiO2 01/14/24 22:19 117 24 127/64 (85) 98 40 01/14/24 18:00 Nasal Cannula* 3 01/14/24 12:00 99.1 99.1 Total Intake and Output 01/13/24 01/13/24 01/14/24 15:00 23:00 07:00 Intake Total 1149.603 ml 943 ml 1182 ml Output Total 1450 ml 1250 ml Balance 1149.603 ml -507 ml -68 ml medications Current Medications Medications Dose Ordered Sig/Saige Route Start Time Stop Time Status Last Admin Dose Admin Sodium Chloride 10 ml Q8HR IV 12/17/23 22:00 01/14/24 21:39 10 ML Nitroglycerin 0.4 mg Q5MINP PRN SL 12/25/23 16:00 Pantoprazole Sodium 40 mg DAILY IV 12/26/23 10:00 01/14/24 11:02 40 MG Ipratropium Justice 0.5 mg Q6HR NEB 12/27/23 18:00 Cancel Amino Acids 0 ml @ 0 mls/hr PER PHARMACY IV 12/28/23 12:00 Diagnostic Test (Pha) 1 strip Q6HR 12/28/23 18:00 01/14/24 17:37 1 STRIP Insulin Human Regular FOLLOW SLIDING SCALE Q6HR SC 12/28/23 18:00 01/14/24 17:39 2 UNITS Dextrose 50 ml UD IV 12/28/23 13:00 Insulin Glargine 15 units DAILY@1000 SC 12/29/23 12:15 01/12/24 09:56 15 UNITS Sodium Chloride 10 ml QSHIFT@ IV 01/05/24 22:00 01/14/24 21:39 10 ML Enoxaparin Sodium 40 mg DAILY SC 01/13/24 10:00 Hold 01/14/24 12:50 40 MG Metoclopramide HCl 10 mg Q8HR IV 01/12/24 22:00 01/14/24 21:39 10 MG Dextrose 1,000 ml @ 100 mls/hr Q10H IV 01/13/24 15:30 01/14/24 15:32 100 MLS/HR Acetaminophen 1,000 mg Q8HP PRN IV 01/13/24 18:00 01/14/24 03:47 1,000 MG Vancomycin HCl 0 ml @ 0 mls/hr UD IV 01/14/24 07:00 Meropenem 50 ml @ 17 mls/hr Q8H IV 01/14/24 20:00 01/14/24 20:28 17 MLS/HR Vancomycin HCl 200 ml @ 200 mls/hr Q12H IV 01/14/24 21:00 01/14/24 21:38 200 MLS/HR Fat Emulsion Intravenous 50 ml/ Potassium Acetate 80 meq/Potassium Phosphate 44 meq/ Magnesium Sulfate 4 meq/ Multivitamins 10 ml/Amino Acids/ Dextrose/Purified Water 1,311 ml @ 54 mls/hr [id number] IV 01/14/24 22:00 01/15/24 21:59 01/14/24 21:48 54 MLS/HR Albumin Human 100 ml @ 100 mls/hr Q8H IV 01/14/24 11:15 01/15/24 04:14 01/14/24 20:31 100 MLS/HR Furosemide 40 mg TID IV 01/14/24 14:00 01/14/24 21:39 40 MG Lorazepam 0.5 mg Q6HP PRN IV 01/14/24 16:45 Ipratropium [place] 0.5 mg Q6HPRN PRN NEB 01/14/24 18:30 01/14/24 22:14 0.5 MG Fentanyl Citrate 250 ml @ 2.5 mls/hr Q24H IV 01/14/24 19:30 01/14/24 18:49 2.5 MLS/HR Norepinephrine Bitartrate 250 ml @ 3.75 mls/hr Q24H IV 01/14/24 19:30 Aspirin 81 mg DAILY PO 01/15/24 10:00 Future Hold Midazolam HCl 50 ml @ 1 mls/hr Q24H IV 01/14/24 20:00 01/14/24 20:58 1 MLS/HR Budesonide 0.5 mg BID NEB 01/15/24 10:00 objective Gen.: Patient lying in bed in medical ICU. Sedated, intubated on mechanical ventilator. Head: Normocephalic, atraumatic. Eyes: PERRLA. Ears: Normal external anatomy. Throat: Endotracheal tube and orogastric tube in place. Neck: Supple, trachea midline. Chest: Transmitted breath sounds bilaterally. Decreased air entry bilaterally. No wheezing. Bibasilar crackles. Cardiovascular: Positive S1, positive S2. Regular rate and rhythm. Abdomen: Positive bowel sounds in all 4 quadrants. Soft, nontender, nondistended. : Davies in place. Normal external genitalia. Rectal: Deferred. Skin: Warm, dry. Intact. Extremities: 2+ radial pulses bilaterally. No lower extremity edema. Neuro: Sedated. laboratory and microbiology Laboratory Tests 01/14/24 05:53 Test 01/14/24 05:53 Range/Units Serum Glucose 143 H 74-106 mg/dL Assessment/Plan Impression: Acute hypoxic respiratory failure On mechanical ventilator Sepsis due to liver abscess Possible MARCIANO in liver Chronic systolic heart failure CAD s/p PTCA with multiple stents and s/p defibrillator Distributive shock Metastatic colon cancer status post left colectomy Iron deficiency anemia Acute kidney injury due to shock Metabolic acidosis Lactic acidosis Events: Patient on 3 LPM NC. TPN for nutritional support Ativan 0.5 mg q.6 hours PRN anxiety. Continue antibiotics. Diurese w/ Lasix as tolerated Monitor renal function Potassium supplementation D5W at 100 ml/hr. NGT Follow up Surgery recs. Note, patient decompensated - respiratory distress noted Aspirated - was emergently intubated and placed on ventilator. Upgraded to SURAJ. Bronchoscopy was performed to remove aspirated bilious material. Protonix for GI prophylaxis Patient is s/p exploratory laparotomy S/p therapeutic bronchoscopy with RML BAL on 01/03 Labs and imaging reviewed. Rest of plan as noted below. Plan: s/p intubation on mechanical ventilator CXR image and report reviewed. Devices in place. Small right-sided pleural effusion with associated atelectasis. ABG reviewed. Compensated Assist control mode with respiratory rate of 16, tidal volume 350, PEEP of 10, FiO2 of 100%. Titrate FIO2 to keep O2 saturation above 92%. VAP bundle Daily ABG and CXR while intubated. Sedate for ventilatory synchrony Pressors as necessary for hemodynamic support Titrate to keep MAP above 65 mmHg/SBP above 90 mmHg. Antibiotics. F/u cultures. Blood cultures no growth after 5 days. Sputum culture notable for Enterobacter cloacae. Monitor renal function Monitor ins/outs Diurese with Lasix BID Monitor electrolytes. Supplement as necessary. Monitor lactic acid due to lactic acidosis. Nutritional support. Accucheks, ISS. GI/DVT prophylaxis. Condition: Critical Prognosis: Poor given multiple comorbidities. Rest of plan per hospitalist and other consultants. A total of 35 minutes of critical care time was spent reviewing the patient record, examining the patient, making a diagnostic and therapeutic plan, discussing this plan with the medical personnel, following up on diagnostic studies and following the patient for clinical stability excluding any and all procedures. At least 50% of this time was spent in direct, [id number] contact. Thank you Dr. Heath for allowing me to participate in this patient's care. Further recommendations will depend on patient's clinical course. Please do not hesitate to contact me if you have any questions or concerns. This medical document was created using an electronic medical record system with [employer] dictation system. Although this document has been carefully reviewed, there may still be some phonetic and typographical errors. These areas are purely typographical due to imperfections of the software programs, and do not reflect any compromise in the patient's medical care. Dietary Evaluation Review Comments: 1) Advance pt diet when medically feasible to a Cardiac diet 2) Continue current plan of care Expected Outcomes/Goals: 1) F/U in 3-5 days Plan discussed with: Other (WALKER Barnard) Critical Care Time(min): 35 DAYSI DYKES MD Jan 14, 2024 23:10
[2024-01-15] VITALS (108 sets, daily range): BP systolic 91–152; BP diastolic 44–82; PULSE 85–112; RESP 9–27; TEMP 98.4–99.9; O2SAT 95–100
[2024-01-15] MEDS: ALBUMIN 25% 100 ML IV ONE (04:16)
[2024-01-15 05:37] LABS: Platelet Count (auto) 422 10^3/uL (140-450); Red Cell Distribution Width 26.8 % (11.8-14.3)
--- NOTE | 2024-01-15 05:40 | DVH ---
CHEST RADIOGRAPH Indication: ET intubation Technique: Single frontal view of the chest was obtained Comparison: XY CHEST XRAY 1 VIEW on DOS: 01/14/24, XY CHEST XRAY 1 VIEW on DOS: 01/13/24, XY CHEST PO RTABLE on DOS: 01/12/24 IMPRESSION: There are low lung volumes with subsegmental atelectasis of the right lung base. Support lines and t ubes appear unchanged in satisfactory position. Likely small right pleural effusion. Mild pulmonary vasculature congestion. No pneumothorax.
[2024-01-15 05:41] LABS: Hematocrit 24.2 % (36.0-46.0); Hemoglobin 7.2 g/dL (12.2-16.2); Mean Corpuscular Hgb Conc. 29.8 g/dL (32.0-36.0); Mean Corpuscular Volume 83.9 fL (80.0-100.0); Red Blood Cells 2.88 10^6/uL (4.0-5.20)
[2024-01-15 05:44] LABS: Band Neutrophils % (manual) 0; Basophils % (manual) 0 (0.0-2.0); Blast Cells 0; Eosinophils % (manual) 0 (0-7); Metamyelocytes % 0; Myelocytes % 0; Promyelocytes % 0; Reactive Lymphocytes 0
[2024-01-15 05:51] LABS: Albumin 3.5 g/dL (3.2-4.8); Anion Gap 13 (5-15); BUN/Creatinine Ratio 69.3 (10.0-20.0); Carbon Dioxide 24 mmol/L (20-31); Magnesium 1.9 mg/dL (1.6-2.6); Sodium 144 mmol/L (136-145)
[2024-01-15 05:52] LABS: Phosphorus 4.8 mg/dL (2.4-5.1)
[2024-01-15 05:53] LABS: Alanine Aminotransferase 102 U/L (7-40); Alkaline Phosphatase 250 U/L (46-116); Aspartate Aminotransferase 261 U/L (13-40); Bilirubin, Total 6.1 mg/dL (0.2-1.0); Blood Urea Nitrogen 52 mg/dL (9-23); Calcium 8.1 mg/dL (8.7-10.4); Chloride 107 mmol/L (98-107); Glucose 285 mg/dL (74-106); Total Protein 6.1 g/dL (5.7-8.2)
[2024-01-15 05:56] LABS: INR 3.24 (0.9-1.15); Prothrombin Time 31.5 sec (9.3-11.8)
[2024-01-15 05:59] LABS: Partial Thromboplastin Time 80.3 SEC (24.5-34.5)
[2024-01-15] MEDS: BUDESONIDE (INHALATION) 0.5 MG/2 ML NEB NEB SCH (06:15)
[2024-01-15 06:52] LABS: Anisocytosis Moderate; Lymphocytes % (manual) 7 (10.0-50.0); Monocytes % (manual) 6 (0-12); Target Cell FEW
[2024-01-15 06:53] LABS: Hypochromia Moderate; Platelet Estimate Adequate
[2024-01-15] MEDS ORDERED: ASPirin 81 mg TAB PO SCH (10:00)
[2024-01-15 10:07] LABS: Monocytes # (auto) 1.3 10 ^3/uL (0-1.3); Nucleated Red Blood Cells % 0.1 %; Red Blood Cells 2.85 10^6/uL (4.0-5.20)
[2024-01-15 10:08] LABS: Basophils # (auto) 0.2 10 ^3/uL (0-0.2); Eosinophils # (auto) 0.3 10 ^3/uL (0-0.8); Eosinophils % (auto) 1.3 % (0.0-7.0); Hematocrit 23.4 % (36.0-46.0); Lymphocytes % (auto) 4.8 % (10.0-50.0); Mean Corpuscular Hemoglobin 24.7 pg (28.0-32.0); Mean Corpuscular Volume 82.3 fL (80.0-100.0); Monocytes % (auto) 5.9 % (0.0-12.0); Neutrophils # (auto) 18.4 10 ^3/uL (1.6-8.6); Platelet Count (auto) 447 10^3/uL (140-450); White Blood Cell 21.1 10^3/uL (4.4-10.8)
[2024-01-15 10:10] LABS: Red Cell Distribution Width 27.2 % (11.8-14.3)
[2024-01-15 10:26] LABS: INR 1.78 (0.9-1.15); Partial Thromboplastin Time 37.9 SEC (24.5-34.5); Prothrombin Time 18.1 sec (9.3-11.8)
--- NOTE | 2024-01-15 10:35 | DVHPN2 ---
Progress Note Date Seen: Jan 15, 2024 Medical Necessity Reason Pt with a Central, PICC or Fol: Yes The following are medically ne: PICC Line, Davies Catheter Reason for davies catheter: Strict I&O Objective vital signs Vital Sign Date Time Temp Pulse Resp B/P (MAP) Pulse Ox O2 Delivery O2 Flow Rate FiO2 01/15/24 09:12 98 23 129/54 (79) 98 30 01/15/24 08:00 Mechanical Ventilator+ 01/15/24 08:00 99.1 210.4 01/14/24 22:00 Total Intake and Output 01/14/24 01/14/24 01/15/24 15:00 23:00 07:00 Intake Total 2332 ml 1626.75 ml 1461.5 ml Output Total 400 ml 1000 ml 800 ml Balance 1932 ml 626.75 ml 661.5 ml medications Current Medications Medications Dose Ordered Sig/Saige Route Start Time Stop Time Status Last Admin Dose Admin Sodium Chloride 10 ml Q8HR IV 12/17/23 22:00 01/15/24 06:29 10 ML Nitroglycerin 0.4 mg Q5MINP PRN SL 12/25/23 16:00 Pantoprazole Sodium 40 mg DAILY IV 12/26/23 10:00 01/15/24 09:22 40 MG Ipratropium [place] 0.5 mg Q6HR NEB 12/27/23 18:00 Cancel Amino Acids 0 ml @ 0 mls/hr PER PHARMACY IV 12/28/23 12:00 Diagnostic Test (Pha) 1 strip Q6HR 12/28/23 18:00 01/15/24 06:26 1 STRIP Insulin Human Regular FOLLOW SLIDING SCALE Q6HR SC 12/28/23 18:00 01/14/24 17:39 2 UNITS Dextrose 50 ml UD IV 12/28/23 13:00 Insulin Glargine 15 units DAILY@1000 SC 12/29/23 12:15 01/12/24 09:56 15 UNITS Sodium Chloride 10 ml QSHIFT@ IV 01/05/24 22:00 01/15/24 09:22 10 ML Enoxaparin Sodium 40 mg DAILY SC 01/13/24 10:00 Hold 01/14/24 12:50 40 MG Metoclopramide HCl 10 mg Q8HR IV 01/12/24 22:00 01/15/24 06:29 10 MG Dextrose 1,000 ml @ 100 mls/hr Q10H IV 01/13/24 15:30 01/15/24 00:56 100 MLS/HR Acetaminophen 1,000 mg Q8HP PRN IV 01/13/24 18:00 01/14/24 03:47 1,000 MG Vancomycin HCl 0 ml @ 0 mls/hr UD IV 01/14/24 07:00 Meropenem 50 ml @ 17 mls/hr Q8H IV 01/14/24 20:00 01/15/24 04:11 17 MLS/HR Vancomycin HCl 200 ml @ 200 mls/hr Q12H IV 01/14/24 21:00 01/15/24 09:22 200 MLS/HR Fat Emulsion Intravenous 50 ml/ Potassium Acetate 80 meq/Potassium Phosphate 44 meq/ Magnesium Sulfate 4 meq/ Multivitamins 10 ml/Amino Acids/ Dextrose/Purified Water 1,311 ml @ 54 mls/hr [id number] IV 01/14/24 22:00 01/15/24 21:59 01/14/24 21:48 54 MLS/HR Furosemide 40 mg TID IV 01/14/24 14:00 01/15/24 06:29 40 MG Lorazepam 0.5 mg Q6HP PRN IV 01/14/24 16:45 Ipratropium [place] 0.5 mg Q6HPRN PRN NEB 01/14/24 18:30 01/14/24 22:14 0.5 MG Fentanyl Citrate 250 ml @ 2.5 mls/hr Q24H IV 01/14/24 19:30 01/15/24 08:04 12.5 MLS/HR Norepinephrine Bitartrate 250 ml @ 3.75 mls/hr Q24H IV 01/14/24 19:30 Aspirin 81 mg DAILY PO 01/15/24 10:00 Hold Midazolam HCl 50 ml @ 1 mls/hr Q24H IV 01/14/24 20:00 01/15/24 07:51 7 MLS/HR Budesonide 0.5 mg BID NEB 01/15/24 10:00 01/15/24 06:15 0.5 MG laboratory and microbiology Laboratory Tests 01/15/24 09:35 Test 01/15/24 09:35 Range/Units Serum Glucose Pending Problem List/Assessment/Plan Problem List/Assessment/Plan 01/06/[address] Aditi BUCKLEY, ABDOMEN APPEARS TO BE TENDER IN THE LEFT LOWER QUADRANT, WOUND IS CLEAN AND WELL APPROXIMATED, DRAINAGE FROM LOWER PORTION OF MIDLINE WOUND.AWAITING ir intervention 01/07/24 essentially unchanged, continues hypotensive with leukocytosis, abdomen "full", no BM or flatus reported, spoke to interventional radiologist, he will proceed with drainage of pelvic fluid collection via transgluteal approach 01/08/24 slightly improved, discussed pelvic fluid drainage with radiologist,abdomen soft, non distended, continue current treatments 01/09/24 slightly improved, abdomen less tense, wound clean ,drainage clear, good urine output, less pressors requirement 01/10/24 wbc slightly better, wound ok, abdomen soft and non distended, no BM, will add reglan, once she passes flatus NG tube can be DC'd 01/11/24 'S QUESTIONS ANSWERED, SHE CONTINUES UNCHANGED, WOUND CLEAN ,ABDOMEN NON DISTENDED 01/12/24 abdomen non distended, appears non tender()pt awakens), wound clean and well approximated, undergoing CPAP trial 01/14/24 abdomen benign, sepsis persists, will get gastrografin small bowel series in hope of starting po intake 01/15/24 patient aspirated yesterday and was re intubated, there is what appears a large fluid collection/abscess in the pelvis which could be due to an anastomotic colon leak, I thoroughly explained to (patient sedated) that if radiologist not available to do a ct guided aspiration, she would need an operation to drain the pelvic abscess and could end up with a colostomy. I showed the patient's CT scan images to the and explained that the liver is essentially replaced with what appears to be malignant deposits. I told him to "think hard about what would his want" if she were able to make a decision for her self in this situation. Plan discussed with: Spouse Dietary Evaluation Review Comments: 1) Advance pt diet when medically feasible to a Cardiac diet 2) Continue current plan of care Expected Outcomes/Goals: 1) F/U in 3-5 days ASPEN EUBANKS MD Jan 15, 2024 10:35
--- NOTE | 2024-01-15 11:09 | DVHPN2 ---
Progress Note - Dictate Date Seen: Jan 15, 2024 Medical Necessity Reason Pt with a Central, PICC or Fol: Yes The following are medically ne: PICC Line, Davies Catheter Reason for davies catheter: Strict I&O Subjective Patient was seen and examined at bedside. concern for aspiration Antibiotic status: Vancomycin HCl 200 ml @ 200 mls/hr - [Started 12/31 - 01/07] restarted 01/13 Meropenem 50 ml @ 17 mls/hr - [Started - 01/02 - restarted vital signs Vital Sign Date Time Temp Pulse Resp B/P (MAP) Pulse Ox O2 Delivery O2 Flow Rate FiO2 01/15/24 10:30 98.8 101 17 128/61 (83) 98 209.8 01/15/24 10:25 30 01/15/24 10:00 Mechanical Ventilator+ 01/14/24 22:00 Total Intake and Output 01/14/24 01/14/24 01/15/24 15:00 23:00 07:00 Intake Total 2332 ml 1626.75 ml 1461.5 ml Output Total 400 ml 1000 ml 800 ml Balance 1932 ml 626.75 ml 661.5 ml medications Current Medications Medications Dose Ordered Sig/Saige Route Start Time Stop Time Status Last Admin Dose Admin Sodium Chloride 10 ml Q8HR IV 12/17/23 22:00 01/15/24 06:29 10 ML Nitroglycerin 0.4 mg Q5MINP PRN SL 12/25/23 16:00 Pantoprazole Sodium 40 mg DAILY IV 12/26/23 10:00 01/15/24 09:22 40 MG Ipratropium [place] 0.5 mg Q6HR NEB 12/27/23 18:00 Cancel Amino Acids 0 ml @ 0 mls/hr PER PHARMACY IV 12/28/23 12:00 Diagnostic Test (Pha) 1 strip Q6HR 12/28/23 18:00 01/15/24 06:26 1 STRIP Insulin Human Regular FOLLOW SLIDING SCALE Q6HR SC 12/28/23 18:00 01/14/24 17:39 2 UNITS Dextrose 50 ml UD IV 12/28/23 13:00 Insulin Glargine 15 units DAILY@1000 SC 12/29/23 12:15 01/12/24 09:56 15 UNITS Sodium Chloride 10 ml QSHIFT@10,22 IV 01/05/24 22:00 01/15/24 09:22 10 ML Enoxaparin Sodium 40 mg DAILY SC 01/13/24 10:00 Hold 01/14/24 12:50 40 MG Metoclopramide HCl 10 mg Q8HR IV 01/12/24 22:00 01/15/24 06:29 10 MG Dextrose 1,000 ml @ 100 mls/hr Q10H IV 01/13/24 15:30 01/15/24 00:56 100 MLS/HR Acetaminophen 1,000 mg Q8HP PRN IV 01/13/24 18:00 01/14/24 03:47 1,000 MG Vancomycin HCl 0 ml @ 0 mls/hr UD IV 01/14/24 07:00 Meropenem 50 ml @ 17 mls/hr Q8H IV 01/14/24 20:00 01/15/24 04:11 17 MLS/HR Vancomycin HCl 200 ml @ 200 mls/hr Q12H IV 01/14/24 21:00 01/15/24 09:22 200 MLS/HR Fat Emulsion Intravenous 50 ml/ Potassium Acetate 80 meq/Potassium Phosphate 44 meq/ Magnesium Sulfate 4 meq/ Multivitamins 10 ml/Amino Acids/ Dextrose/Purified Water 1,311 ml @ 54 mls/hr [id number] IV 01/14/24 22:00 01/15/24 21:59 01/14/24 21:48 54 MLS/HR Furosemide 40 mg TID IV 01/14/24 14:00 01/15/24 06:29 40 MG Lorazepam 0.5 mg Q6HP PRN IV 01/14/24 16:45 Ipratropium [place] 0.5 mg Q6HPRN PRN NEB 01/14/24 18:30 01/14/24 22:14 0.5 MG Fentanyl Citrate 250 ml @ 2.5 mls/hr Q24H IV 01/14/24 19:30 01/15/24 08:04 12.5 MLS/HR Norepinephrine Bitartrate 250 ml @ 3.75 mls/hr Q24H IV 01/14/24 19:30 Aspirin 81 mg DAILY PO 01/15/24 10:00 Hold Midazolam HCl 50 ml @ 1 mls/hr Q24H IV 01/14/24 20:00 01/15/24 07:51 7 MLS/HR Budesonide 0.5 mg BID NEB 01/15/24 10:00 01/15/24 06:15 0.5 MG objective General.: Patient lying in bed in medical ICU. Sedated, intubated on mechanical ventilator. Head: Normocephalic, atraumatic. Eyes: PERRLA. Ears: Normal external anatomy. Throat: Endotracheal tube and orogastric tube in place. Neck: Supple, trachea midline. Chest: Transmitted breath sounds bilaterally. Decreased air entry bilaterally. No wheezing. Bibasilar crackles. Cardiovascular: Positive S1, positive S2. Regular rate and rhythm. Abdomen: Positive bowel sounds in all 4 quadrants. Soft, nontender, nondistended. : Davies in place. Normal external genitalia. Rectal: Deferred. Skin: Warm, dry. Intact. Extremities: 2+ radial pulses bilaterally. +4 pitting edema. Neuro: Sedated. laboratory and microbiology Laboratory Tests 01/15/24 09:35 Test 01/15/24 09:35 Range/Units Serum Glucose Pending Assessment/Plan Patient is a 64-year-old female presents to the hospital with: # Pelvic abscess; colon leak septic shock vs distributive shock : resolved leucocytosis ? stress induced vs sepsis vs reactive Ventilator associated Pneumonia : [place] large bowel obstruction s/p colectomy s/p end to end anastomosis 12/24 possible colon cancer with mets ascites: malignant vs post surgical vs infection Liver mets acute hypoxic respiratory failure on mechanical ventilation CHF anasarca Recommendations: Ct abdomen and pelvis shows large collection, concern fo colon leak/ abscess surgery is on board, plan for IR drain on pressors broad spectrum antibiotics continue cultures review 01/06: body fluid cultures : few WBC seen , no organisms 01/05, Blood culture: No growth 01/05, Urine culture: No growth 01/04, Aerobic culture: No growth 12/29 : sputum culture notable for Enterobacter cloacae. CT pelvic wo contrast done on 01/06 : CT guided needle/catheter placement into the low pelvic fluid collection with aspiration of 1-2 mL of yellow serous fluid. overall prognosis is very poor with mets, crit time 35 minutes spent in co-ordination of care Thank you for the consult and for giving an opportunity to take care of this patient. Dietary Evaluation Review Comments: 1) Advance pt diet when medically feasible to a Cardiac diet 2) Continue current plan of care Expected Outcomes/Goals: 1) F/U in 3-5 days Plan discussed with: JASPREET Galvan MD Jan 15, 2024 11:09
[2024-01-15 11:11] LABS: Albumin 3.6 g/dL (3.2-4.8); Anion Gap 13 (5-15); Carbon Dioxide 24 mmol/L (20-31); Glucose 99 mg/dL (74-106); Potassium 4.1 mmol/L (3.5-5.1); Sodium 145 mmol/L (136-145)
[2024-01-15 11:12] LABS: Alanine Aminotransferase 91 U/L (7-40); Alkaline Phosphatase 239 U/L (46-116); Aspartate Aminotransferase 229 U/L (13-40); Blood Urea Nitrogen 45 mg/dL (9-23); Calcium 8.6 mg/dL (8.7-10.4); Chloride 108 mmol/L (98-107); Total Protein 6.4 g/dL (5.7-8.2)
--- NOTE | 2024-01-15 14:07 | DVHPNRES ---
Progress Note Date Seen: Jan 15, 2024 Resident Creating Document: NICHOLE CANCINO RESIDENT Medical Necessity Reason Pt with a Central, PICC or Fol: Yes The following are medically ne: PICC Line, Davies Catheter Reason for davies catheter: Strict I&O Subjective Review of Systems A 63-year-old female patient with PMHx of systolic heart failure status post Med[employer] ICD placement -last EF 35% in September2023, CAD status post 4 RYAN in January 2018 , dyslipidemia, recurrent UTIs and pyelonephritis for the past 4 months, hypertension and internal hemorrhoids presented to the ER with a chief complaint of suprapubic abdominal pain and constipation. Patient recently visited [facility] in August this year with her when she went to the [place] barefoot and had bite dong all over the body, following which she has been getting recurrent UTIs and pyelonephritis starting September, also reports dry cough since the visit. She reports that the abdominal pain started 12/10 and is associated with tenesmus, she only passes small pellet-like stools associated with mucus and a lot of flatus. Also reports history of internal hemorrhoids and that she is experiencing bright red bleed per rectum for the past few days. She denies lifetime history of colonoscopy/endoscopy. Reports nausea, chills on and off but no fever. Denies lifetime history of STI, is monogamous with the . Her did not get any symptoms after the trip. PCP Jodie Rico Past surgical history; Partial hysterectomy Family history: Unremarkable Social history: Lives with , denies smoking, drank heavily during the vacation - quit since, denies illicit drug Patient seen and examined at bedside. Patient was febrile, tachycardic, persistent leukocytosis. abdomen and pelvis CT which evidence pelvic abscess. Surgery consult done and suggest abscess drainage. Patient was reintubated yesterday due to septic shock. Objective vital signs Vital Sign Date Time Temp Pulse Resp B/P (MAP) Pulse Ox O2 Delivery O2 Flow Rate FiO2 01/15/24 13:46 104/54 01/15/24 13:30 98.4 85 26 99 209.1 01/15/24 11:35 30 01/15/24 10:00 Mechanical Ventilator+ 01/14/24 22:00 Total Intake and Output 01/14/24 01/14/24 01/15/24 15:00 23:00 07:00 Intake Total 2332 ml 1626.75 ml 1461.5 ml Output Total 400 ml 1000 ml 800 ml Balance 1932 ml 626.75 ml 661.5 ml medications Current Medications Medications Dose Ordered Sig/Saige Route Start Time Stop Time Status Last Admin Dose Admin Sodium Chloride 10 ml Q8HR IV 12/17/23 22:00 01/15/24 06:29 10 ML Nitroglycerin 0.4 mg Q5MINP PRN SL 12/25/23 16:00 Pantoprazole Sodium 40 mg DAILY IV 12/26/23 10:00 01/15/24 09:22 40 MG Ipratropium [place] 0.5 mg Q6HR NEB 12/27/23 18:00 Cancel Amino Acids 0 ml @ 0 mls/hr PER PHARMACY IV 12/28/23 12:00 Diagnostic Test (Pha) 1 strip Q6HR 12/28/23 18:00 01/15/24 11:50 1 STRIP Insulin Human Regular FOLLOW SLIDING SCALE Q6HR SC 12/28/23 18:00 01/14/24 17:39 2 UNITS Dextrose 50 ml UD IV 12/28/23 13:00 Insulin Glargine 15 units DAILY@1000 SC 12/29/23 12:15 01/12/24 09:56 15 UNITS Sodium Chloride 10 ml QSHIFT@ IV 01/05/24 22:00 01/15/24 09:22 10 ML Enoxaparin Sodium 40 mg DAILY SC 01/13/24 10:00 Hold 01/14/24 12:50 40 MG Metoclopramide HCl 10 mg Q8HR IV 01/12/24 22:00 01/15/24 13:46 10 MG Dextrose 1,000 ml @ 100 mls/hr Q10H IV 01/13/24 15:30 01/15/24 12:02 100 MLS/HR Acetaminophen 1,000 mg Q8HP PRN IV 01/13/24 18:00 01/14/24 03:47 1,000 MG Vancomycin HCl 0 ml @ 0 mls/hr UD IV 01/14/24 07:00 Meropenem 50 ml @ 17 mls/hr Q8H IV 01/14/24 20:00 01/15/24 13:41 17 MLS/HR Vancomycin HCl 200 ml @ 200 mls/hr Q12H IV 01/14/24 21:00 01/15/24 09:22 200 MLS/HR Fat Emulsion Intravenous 50 ml/ Potassium Acetate 80 meq/Potassium Phosphate 44 meq/ Magnesium Sulfate 4 meq/ Multivitamins 10 ml/Amino Acids/ Dextrose/Purified Water 1,311 ml @ 54 mls/hr [id number] IV 01/14/24 22:00 01/15/24 21:59 01/14/24 21:48 54 MLS/HR Furosemide 40 mg TID IV 01/14/24 14:00 01/15/24 13:46 40 MG Lorazepam 0.5 mg Q6HP PRN IV 01/14/24 16:45 Ipratropium [place] 0.5 mg Q6HPRN PRN NEB 01/14/24 18:30 01/14/24 22:14 0.5 MG Fentanyl Citrate 250 ml @ 2.5 mls/hr Q24H IV 01/14/24 19:30 01/15/24 08:04 12.5 MLS/HR Norepinephrine Bitartrate 250 ml @ 3.75 mls/hr Q24H IV 01/14/24 19:30 Aspirin 81 mg DAILY PO 01/15/24 10:00 Hold Midazolam HCl 50 ml @ 1 mls/hr Q24H IV 01/14/24 20:00 01/15/24 13:30 11 MLS/HR Budesonide 0.5 mg BID NEB 01/15/24 10:00 01/15/24 06:15 0.5 MG Fat Emulsion Intravenous 50 ml/ Potassium Acetate 90 meq/Magnesium Sulfate 6 meq/ Multivitamins 10 ml/Amino Acids/ Dextrose/Purified Water 1,306.5 ml @ 54 mls/hr [id number] IV 01/15/24 22:00 01/16/24 21:59 Examination Gen. Sedated, intubated on mechanical ventilator. Head: Normocephalic, atraumatic. Eyes: PERRLA. Ears: Normal external anatomy. Throat: Endotracheal tube and orogastric tube in place. Neck: Supple, trachea midline. Chest: Transmitted breath sounds bilaterally. Decreased air entry bilaterally. No wheezing. Bibasilar crackles. Cardiovascular: Positive S1, positive S2. Regular rate and rhythm. Abdomen: Positive bowel sounds in all 4 quadrants. Soft, nontender, nondistended. : Davies in place. Normal external genitalia. Skin: Warm, dry. Intact. Extremities: 2+ radial pulses bilaterally. No lower extremity edema. Neuro: Sedated. laboratory and microbiology Laboratory Tests 01/15/24 09:35 Test 01/15/24 09:35 Range/Units Serum Glucose 99 74-106 mg/dL Microbiology Date/Time Source Procedure Growth Status 01/14/24 19:03 Trachea Gram Stain Pending Resulted 01/14/24 19:03 Trachea Respiratory Culture - Preliminary Resulted 01/14/24 10:28 Voided Urine Urine Culture - Preliminary Resulted 01/14/24 10:25 Blood Blood Culture - Preliminary NO GROWTH AFTER 24 HOURS OF INCUBATION. Resulted 01/12/24 16:13 Sputum Gram Stain - Final Complete 01/12/24 16:13 Respiratory Culture - Final Enterobacter cloacae Complete 01/07/24 15:20 Aspirate Gram Stain - Final Complete 01/07/24 15:20 Aspirate Body Fluid Culture - Final Complete 12/18/23 13:03 Stool Stool Culture - Final Complete 12/18/23 13:03 Stool Shiga Toxin I & II - Final Complete Problem List/Assessment/Plan Problem List/Assessment/Plan Metabolic encephalopathy probably secondary to sepsis Currently patient is intubated Currently under empiric IV antibiotic (meropenem and vancomycin) Completed multiple head CTs with no acute intracranial pathology Cardiovascular Acute on chronic systolic congestive heart failure (HFrEF, LVEF 35%)-status post ICD placement Indicated albumin 25% t.i.d. x3 followed by IV furosemide 40 mg Completed point of care ultrasound at bedside: Evidence fluid overload with pulmonary comments. Echocardiogram during this admission: Severely reduced LVEF, 35%, anterior anteroapical wall akinesia, moderately reduced RV systolic function, rest of study within normal limits. History of coronary artery disease with cardiac arrest (VFib/V-tach) - status post PCI with stent placements Currently aspirin on hold (INR of 2). Completed stress test which showed no ischemia, multiple territories of infarcts NSTEMI type 2 Secondary to septic shock. Stress test negative for ischemia Respiratory Acute respiratory failure Patient during a.m. was on nasal cannula at 3 liters/minute. During Gastrografin study patient aspirated, currently is intubated on 01/14/2024 (VCV VT 450, RR 22, peep five, FiO2 50%) Completed new bronchoscopy 01/14/2024 since samples for culture and pathology. Aspiration pneumonia Secondary to Gastrografin study. Required endotracheal intubation on 01/14/2024 and bronchoscopy, pending culture and pathology. Multiple pneumonia secondary to Enterobacter cloacae Completed multiple courses of antibiotics Gastrointestinal Bowel obstruction secondary to sigmoid adenocarcinoma with hepatic metastasis - status post colectomy with terminal-terminal anastomosis Completed colectomy with terminal terminal anastomosis on 12/25/2023, with previous cardiological clearance. Patient on TPN due to presence of pelvic abscess. web operations specialist on board: Suggested Gastrografin study to evaluate bowel motility Pelvic abscess - status post failed percutaneous drainage Completed new abdomen and pelvis CT with contrast which shows abscess and pelvic area. Interventional radiologist consulted suggesting new drainage on Friday01/19/2024 Hepatomegaly secondary to liver metastasis due to sigmoid adenocarcinoma Monitor CMP and coagulation Transaminitis Secondary to above Genitourinary/Nephrology History of multiple UTIs Last urine culture with no evidence of bacterial growth Hypernatremia Currently on D5W 100ml/h Infectious Disease Septic shock probably secondary to aspiration pneumonia versus pelvic abscess - resolved Required maximum dose of vasopressors (four IV vasopressors). Currently with no IV vasopressors Completed multiple courses of antibiotic (febrile since tazobactam for two days, ceftriaxone for one day, vancomycin previously for 12 days, meropenem previously four 12 days) Multiple cultures completed, only positive 3 times sputum for Enterobacter cloacae (pelvic fluid, blood, and urine culture negative) Id specialist on board Persistent sepsis probably secondary to pelvic acid Completed new abdomen and pelvis CT with contrast which evidence abscess and pelvic area. Interventional radiologist consulted suggesting new drainage on Friday01/19/2024 Currently under empiric IV antibiotic (vancomycin and meropenem) Hematology Persistent leukocytosis Probably secondary to pelvic abscess Coagulopathy secondary to sepsis INR on 01/14/2024 approximately two. We will hold enoxaparin and aspirin Nutrition: TPN, no enteral feeding until bowel motility evaluated (has to be cleared by surgical resident) Prophylaxis for PUD and DVT: Currently on pantoprazole and SCDs Lines Left arm PICC line placed on 01/07/2024 New Davies catheter 01/14/2024 ET tube 01/14/2024 Drips Versed Fentanyl Case discussed with Dr Hall Critical Care time spent 73 minutes including, patient care, chart review and updating family, excluding procedure. Plan discussed with: Spouse, Other (RN) My Orders My Orders Orders - NICHOLE CANCINO RESIDENT Procedure Category Date Status Time Ng To Lcs DELORES 01/15/24 In Process 11:07 Packedcell-Noactive BBK 01/15/24 Logged Bleeding 12:53 Type And Screen BBK 01/15/24 Logged 12:53 Dietary Evaluation Review Comments: 1) Advance pt diet when medically feasible to a Cardiac diet 2) Continue current plan of care Expected Outcomes/Goals: 1) F/U in 3-5 days Date of Service: Jan 15, 2024 Billing Provider: LEO HALL MD Common Visit Codes: 55902-[id number] CARE 30-74 MIN NICHOLE CANCINO RESIDENT Jan 15, 2024 14:07 LEO HALL MD Jan 16, 2024 12:43
[2024-01-15] MEDS: TPN PER PHARMACY IV NR (21:48)
[2024-01-16] VITALS (109 sets, daily range): BP systolic 88–129; BP diastolic 31–60; PULSE 67–97; RESP 9–33; TEMP 98.1–98.8; O2SAT 84–100
[2024-01-16 05:08] LABS: Eosinophils # (auto) 0.4 10 ^3/uL (0-0.8); Hematocrit 26.8 % (36.0-46.0); Lymphocytes # (auto) 0.6 10 ^3/uL (0.4-5.4); Nucleated Red Blood Cells % 0.1 %; Red Cell Distribution Width 25.3 % (11.8-14.3)
[2024-01-16 05:13] LABS: Basophils # (auto) 0.2 10 ^3/uL (0-0.2); Basophils % (auto) 1.2 % (0.0-2.0); Eosinophils % (auto) 2.2 % (0.0-7.0); Hemoglobin 8.6 g/dL (12.2-16.2); Lymphocytes % (auto) 3.3 % (10.0-50.0); Mean Corpuscular Volume 81.1 fL (80.0-100.0); Monocytes # (auto) 0.7 10 ^3/uL (0-1.3); Monocytes % (auto) 3.4 % (0.0-12.0); Neutrophils # (auto) 17.3 10 ^3/uL (1.6-8.6); Neutrophils % (auto) 89.9 % (37.0-80.0); Platelet Count (auto) 416 10^3/uL (140-450); White Blood Cell 19.3 10^3/uL (4.4-10.8)
[2024-01-16 05:27] LABS: Anion Gap 10 (5-15); BUN/Creatinine Ratio 61.5 (10.0-20.0); Calcium 8.7 mg/dL (8.7-10.4); Carbon Dioxide 27 mmol/L (20-31); Chloride 103 mmol/L (98-107); Magnesium 1.7 mg/dL (1.6-2.6); Phosphorus 4.8 mg/dL (2.4-5.1); Potassium 4.9 mmol/L (3.5-5.1); Sodium 140 mmol/L (136-145)
[2024-01-16 05:28] LABS: Alanine Aminotransferase 94 U/L (7-40); Albumin 3.2 g/dL (3.2-4.8); Alkaline Phosphatase 300 U/L (46-116); Aspartate Aminotransferase 191 U/L (13-40); Bilirubin, Total 6.2 mg/dL (0.2-1.0); Blood Urea Nitrogen 64 mg/dL (9-23); Glucose 108 mg/dL (74-106); Total Protein 6.2 g/dL (5.7-8.2)
[2024-01-16 05:54] LABS: Anisocytosis Slight; Hypochromia Slight
[2024-01-16 05:55] LABS: Platelet Estimate Adequate; Target Cell FEW
--- NOTE | 2024-01-16 05:59 | DVH ---
CHEST RADIOGRAPH Indication: ET intubation Technique: Single frontal view of the chest was obtained Comparison: XY CHEST XRAY 1 VIEW on DOS: 01/15/24, XY CHEST XRAY 1 VIEW on DOS: 01/14/24, XY CHEST XR AY 1 VIEW on DOS: 01/13/24 IMPRESSION: There are low lung volumes. Support lines and tubes are unchanged in satisfactory position. Possible small right pleural effusion, improved. Moderate pulmonary vascular congestion. No pneumothorax.
[2024-01-16 08:20] LABS: Base Excess -3.1 mmol/L (-2.0-3.0)
--- NOTE | 2024-01-16 09:01 | DVHPN2 ---
Progress Note - Dictate Date Seen: Jan 16, 2024 Medical Necessity Reason Pt with a Central, PICC or Fol: Yes The following are medically ne: PICC Line, Davies Catheter Reason for davies catheter: Strict I&O Subjective intubated and sedated Antibiotic status: Vancomycin HCl 200 ml @ 200 mls/hr - [Started 12/31 - 01/07] restarted 01/13 Meropenem 50 ml @ 17 mls/hr - [Started - 01/02 - stopped] restarted 01/13 vital signs Vital Sign Date Time Temp Pulse Resp B/P (MAP) Pulse Ox O2 Delivery O2 Flow Rate FiO2 01/16/24 08:15 98.6 89 9 104/42 (62) 96 209.5 01/16/24 08:00 Mechanical Ventilator+ 30 30 01/14/24 22:00 Total Intake and Output 01/15/24 01/15/24 01/16/24 14:59 22:59 06:59 Intake Total 2183.5 ml 2406.5 ml 1554.0 ml Output Total 400 ml 250 ml Balance 2183.5 ml 2006.5 ml 1304.0 ml medications Current Medications Medications Dose Ordered Sig/Saige Route Start Time Stop Time Status Last Admin Dose Admin Sodium Chloride 10 ml Q8HR IV 12/17/23 22:00 01/16/24 05:46 10 ML Nitroglycerin 0.4 mg Q5MINP PRN SL 12/25/23 16:00 Pantoprazole Sodium 40 mg DAILY IV 12/26/23 10:00 01/16/24 07:45 40 MG Ipratropium [place] 0.5 mg Q6HR NEB 12/27/23 18:00 Cancel Amino Acids 0 ml @ 0 mls/hr PER PHARMACY IV 12/28/23 12:00 Diagnostic Test (Pha) 1 strip Q6HR 12/28/23 18:00 01/16/24 05:46 1 STRIP Insulin Human Regular FOLLOW SLIDING SCALE Q6HR SC 12/28/23 18:00 01/14/24 17:39 2 UNITS Dextrose 50 ml UD IV 12/28/23 13:00 Insulin Glargine 15 units DAILY@1000 SC 12/29/23 12:15 01/12/24 09:56 15 UNITS Sodium Chloride 10 ml QSHIFT@ IV 01/05/24 22:00 01/16/24 07:24 10 ML Enoxaparin Sodium 40 mg DAILY SC 01/13/24 10:00 Hold 01/14/24 12:50 40 MG Metoclopramide HCl 10 mg Q8HR IV 01/12/24 22:00 01/16/24 05:46 10 MG Dextrose 1,000 ml @ 100 mls/hr Q10H IV 01/13/24 15:30 01/16/24 00:18 100 MLS/HR Acetaminophen 1,000 mg Q8HP PRN IV 01/13/24 18:00 01/14/24 03:47 1,000 MG Vancomycin HCl 0 ml @ 0 mls/hr UD IV 01/14/24 07:00 Meropenem 50 ml @ 17 mls/hr Q8H IV 01/14/24 20:00 01/16/24 05:16 17 MLS/HR Vancomycin HCl 200 ml @ 200 mls/hr Q12H IV 01/14/24 21:00 01/15/24 09:22 200 MLS/HR Furosemide 40 mg TID IV 01/14/24 14:00 01/16/24 05:46 40 MG Lorazepam 0.5 mg Q6HP PRN IV 01/14/24 16:45 Ipratropium [place] 0.5 mg Q6HPRN PRN NEB 01/14/24 18:30 01/15/24 18:21 0.5 MG Fentanyl Citrate 250 ml @ 2.5 mls/hr Q24H IV 01/14/24 19:30 01/16/24 03:07 25 MLS/HR Norepinephrine Bitartrate 250 ml @ 3.75 mls/hr Q24H IV 01/14/24 19:30 Aspirin 81 mg DAILY PO 01/15/24 10:00 Hold Midazolam HCl 50 ml @ 1 mls/hr Q24H IV 01/14/24 20:00 01/16/24 05:15 13 MLS/HR Budesonide 0.5 mg BID NEB 01/15/24 10:00 01/16/24 07:32 0.5 MG Fat Emulsion Intravenous 50 ml/ Potassium Acetate 90 meq/Magnesium Sulfate 6 meq/ Multivitamins 10 ml/Amino Acids/ Dextrose/Purified Water 1,306.5 ml @ 54 mls/hr [id number] IV 01/15/24 22:00 01/16/24 21:59 01/15/24 21:48 54 MLS/HR objective General.: Patient lying in bed in medical ICU. Sedated, intubated on mechanical ventilator. Head: Normocephalic, atraumatic. Eyes: PERRLA. Ears: Normal external anatomy. Throat: Endotracheal tube and orogastric tube in place. Neck: Supple, trachea midline. Chest: Transmitted breath sounds bilaterally. Decreased air entry bilaterally. No wheezing. Bibasilar crackles. Cardiovascular: Positive S1, positive S2. Regular rate and rhythm. Abdomen: Positive bowel sounds in all 4 quadrants. Soft, nontender, nondistended. : Davies in place. Normal external genitalia. Rectal: Deferred. Skin: Warm, dry. Intact. Extremities: 2+ radial pulses bilaterally. +4 pitting edema. Neuro: Sedated. laboratory and microbiology Laboratory Tests 01/16/24 04:35 Test 01/16/24 04:35 Range/Units Serum Glucose 108 H 74-106 mg/dL Assessment/Plan Patient is a 64-year-old female presents to the hospital with: # Pelvic abscess; colon leak septic shock vs distributive shock : resolved leucocytosis ? stress induced vs sepsis vs reactive Ventilator associated Pneumonia : [place] large bowel obstruction s/p colectomy s/p end to end anastomosis 12/24 possible colon cancer with mets ascites: malignant vs post surgical vs infection Liver mets acute hypoxic respiratory failure on mechanical ventilation CHF anasarca Recommendations: Ct abdomen and pelvis shows large collection, concern fo colon leak/ abscess surgery is on board, plan for IR drain on pressors broad spectrum antibiotics continue cultures review 01/06: body fluid cultures : few WBC seen , no organisms 01/05, Blood culture: No growth 01/05, Urine culture: No growth 01/04, Aerobic culture: No growth 12/29 : sputum culture notable for Enterobacter cloacae. CT pelvic wo contrast done on 01/06 : CT guided needle/catheter placement into the low pelvic fluid collection with aspiration of 1-2 mL of yellow serous fluid. overall prognosis is very poor with mets, crit time 35 minutes spent in co-ordination of care Thank you for the consult and for giving an opportunity to take care of this patient. Dietary Evaluation Review Comments: 1) Advance pt diet when medically feasible to a Cardiac diet 2) Continue current plan of care Expected Outcomes/Goals: 1) F/U in 3-5 days Plan discussed with: JASPREET Galvan MD Jan 16, 2024 09:01
--- NOTE | 2024-01-16 09:25 | DVHPN2 ---
Progress Note Date Seen: Jan 16, 2024 Medical Necessity Reason Pt with a Central, PICC or Fol: Yes The following are medically ne: PICC Line, Davies Catheter Reason for davies catheter: Strict I&O Objective vital signs Vital Sign Date Time Temp Pulse Resp B/P (MAP) Pulse Ox O2 Delivery O2 Flow Rate FiO2 01/16/24 08:42 86 20 104/42 (62) 96 30 01/16/24 08:15 98.6 209.5 01/16/24 08:00 Mechanical Ventilator+ 01/14/24 22:00 Total Intake and Output 01/15/24 01/15/24 01/16/24 15:00 23:00 07:00 Intake Total 2206.0 ml 2397.0 ml 1562.0 ml Output Total 400 ml 250 ml Balance 2206.0 ml 1997.0 ml 1312.0 ml medications Current Medications Medications Dose Ordered Sig/Saige Route Start Time Stop Time Status Last Admin Dose Admin Sodium Chloride 10 ml Q8HR IV 12/17/23 22:00 01/16/24 05:46 10 ML Nitroglycerin 0.4 mg Q5MINP PRN SL 12/25/23 16:00 Pantoprazole Sodium 40 mg DAILY IV 12/26/23 10:00 01/16/24 07:45 40 MG Ipratropium [place] 0.5 mg Q6HR NEB 12/27/23 18:00 Cancel Amino Acids 0 ml @ 0 mls/hr PER PHARMACY IV 12/28/23 12:00 Diagnostic Test (Pha) 1 strip Q6HR 12/28/23 18:00 01/16/24 05:46 1 STRIP Insulin Human Regular FOLLOW SLIDING SCALE Q6HR SC 12/28/23 18:00 01/14/24 17:39 2 UNITS Dextrose 50 ml UD IV 12/28/23 13:00 Insulin Glargine 15 units DAILY@1000 SC 12/29/23 12:15 01/12/24 09:56 15 UNITS Sodium Chloride 10 ml QSHIFT@ IV 01/05/24 22:00 01/16/24 07:24 10 ML Enoxaparin Sodium 40 mg DAILY SC 01/13/24 10:00 Hold 01/14/24 12:50 40 MG Metoclopramide HCl 10 mg Q8HR IV 01/12/24 22:00 01/16/24 05:46 10 MG Dextrose 1,000 ml @ 100 mls/hr Q10H IV 01/13/24 15:30 01/16/24 00:18 100 MLS/HR Acetaminophen 1,000 mg Q8HP PRN IV 01/13/24 18:00 01/14/24 03:47 1,000 MG Vancomycin HCl 0 ml @ 0 mls/hr UD IV 01/14/24 07:00 Meropenem 50 ml @ 17 mls/hr Q8H IV 01/14/24 20:00 01/16/24 05:16 17 MLS/HR Vancomycin HCl 200 ml @ 200 mls/hr Q12H IV 01/14/24 21:00 01/15/24 09:22 200 MLS/HR Furosemide 40 mg TID IV 01/14/24 14:00 01/16/24 05:46 40 MG Lorazepam 0.5 mg Q6HP PRN IV 01/14/24 16:45 Ipratropium [place] 0.5 mg Q6HPRN PRN NEB 01/14/24 18:30 01/15/24 18:21 0.5 MG Fentanyl Citrate 250 ml @ 2.5 mls/hr Q24H IV 01/14/24 19:30 01/16/24 03:07 25 MLS/HR Norepinephrine Bitartrate 250 ml @ 3.75 mls/hr Q24H IV 01/14/24 19:30 Aspirin 81 mg DAILY PO 01/15/24 10:00 Hold Midazolam HCl 50 ml @ 1 mls/hr Q24H IV 01/14/24 20:00 01/16/24 08:37 13 MLS/HR Budesonide 0.5 mg BID NEB 01/15/24 10:00 01/16/24 07:32 0.5 MG Fat Emulsion Intravenous 50 ml/ Potassium Acetate 90 meq/Magnesium Sulfate 6 meq/ Multivitamins 10 ml/Amino Acids/ Dextrose/Purified Water 1,306.5 ml @ 54 mls/hr [id number] IV 01/15/24 22:00 01/16/24 21:59 01/15/24 21:48 54 MLS/HR laboratory and microbiology Laboratory Tests 01/16/24 04:35 Test 01/16/24 04:35 Range/Units Serum Glucose 108 H 74-106 mg/dL Problem List/Assessment/Plan Problem List/Assessment/Plan 01/06/[address] Aditi BUCKLEY, ABDOMEN APPEARS TO BE TENDER IN THE LEFT LOWER QUADRANT, WOUND IS CLEAN AND WELL APPROXIMATED, DRAINAGE FROM LOWER PORTION OF MIDLINE WOUND.AWAITING ir intervention 01/07/24 essentially unchanged, continues hypotensive with leukocytosis, abdomen "full", no BM or flatus reported, spoke to interventional radiologist, he will proceed with drainage of pelvic fluid collection via transgluteal approach 01/08/24 slightly improved, discussed pelvic fluid drainage with radiologist,abdomen soft, non distended, continue current treatments 01/09/24 slightly improved, abdomen less tense, wound clean ,drainage clear, good urine output, less pressors requirement 01/10/24 wbc slightly better, wound ok, abdomen soft and non distended, no BM, will add reglan, once she passes flatus NG tube can be DC'd 01/11/24 'S QUESTIONS ANSWERED, SHE CONTINUES UNCHANGED, WOUND CLEAN ,ABDOMEN NON DISTENDED 01/12/24 abdomen non distended, appears non tender()pt awakens), wound clean and well approximated, undergoing CPAP trial 01/14/24 abdomen benign, sepsis persists, will get gastrografin small bowel series in hope of starting po intake 01/15/24 patient aspirated yesterday and was re intubated, there is what appears a large fluid collection/abscess in the pelvis which could be due to an anastomotic colon leak, I thoroughly explained to (patient sedated) that if radiologist not available to do a ct guided aspiration, she would need an operation to drain the pelvic abscess and could end up with a colostomy. I showed the patient's CT scan images to the and explained that the liver is essentially replaced with what appears to be malignant deposits. I told him to "think hard about what would his want" if she were able to make a decision for her self in this situation. 01/17/24 apparently no radiologist is on premisses till Friday, not at bedside this morning, patient essentially clinically unchanged, will wait to hear from patient's about family's wishes Plan discussed with: Other Dietary Evaluation Review Comments: 1) Advance pt diet when medically feasible to a Cardiac diet 2) Continue current plan of care Expected Outcomes/Goals: 1) F/U in 3-5 days ASPEN EUBANKS MD Jan 16, 2024 09:25
--- NOTE | 2024-01-16 16:40 | DVHPNRES ---
Progress Note Date Seen: Jan 16, 2024 Resident Creating Document: NICHOLE CANCINO RESIDENT Medical Necessity Reason Pt with a Central, PICC or Fol: Yes The following are medically ne: PICC Line, Davies Catheter Reason for davies catheter: Strict I&O Subjective Review of Systems A 63-year-old female patient with PMHx of systolic heart failure status post [employer] ICD placement -last EF 35% in September2023, CAD status post 4 RYAN in January 2018 , dyslipidemia, recurrent UTIs and pyelonephritis for the past 4 months, hypertension and internal hemorrhoids presented to the ER with a chief complaint of suprapubic abdominal pain and constipation. Patient recently visited [facility] in August this year with her when she [place] to [place] and had bite dong all over the body, following which she has been getting recurrent UTIs and pyelonephritis starting September, also reports dry cough since the visit. She reports that the abdominal pain started 12/10 and is associated with tenesmus, she only passes small pellet-like stools associated with mucus and a lot of flatus. Also reports history of internal hemorrhoids and that she is experiencing bright red bleed per rectum for the past few days. She denies lifetime history of colonoscopy/endoscopy. Reports nausea, chills on and off but no fever. Denies lifetime history of STI, is monogamous with the . Her did not get any symptoms after the trip. PCP Jodie Rico Past surgical history; Partial hysterectomy Family history: Unremarkable Social history: Lives with , denies smoking, drank heavily during the vacation - quit since, denies illicit drug Patient seen and examined at bedside. Abdomen and pelvis CT which evidence pelvic abscess. Surgery consult done and suggest abscess drainage. Patient's changed the code status to DNR( no chest compression). Objective vital signs Vital Sign Date Time Temp Pulse Resp B/P (MAP) Pulse Ox O2 Delivery O2 Flow Rate FiO2 01/16/24 16:30 98.1 84 15 115/49 (71) 96 208.6 01/16/24 16:00 Mechanical Ventilator+ 30 30 01/14/24 22:00 Total Intake and Output 01/15/24 01/15/24 01/16/24 15:00 23:00 07:00 Intake Total 2206.0 ml 2397.0 ml 1562.0 ml Output Total 400 ml 250 ml Balance 2206.0 ml 1997.0 ml 1312.0 ml medications Current Medications Medications Dose Ordered Sig/Saige Route Start Time Stop Time Status Last Admin Dose Admin Sodium Chloride 10 ml Q8HR IV 12/17/23 22:00 01/16/24 05:46 10 ML Nitroglycerin 0.4 mg Q5MINP PRN SL 12/25/23 16:00 Pantoprazole Sodium 40 mg DAILY IV 12/26/23 10:00 01/16/24 07:45 40 MG Ipratropium [place] 0.5 mg Q6HR NEB 12/27/23 18:00 Cancel Amino Acids 0 ml @ 0 mls/hr PER PHARMACY IV 12/28/23 12:00 Diagnostic Test (Pha) 1 strip Q6HR 12/28/23 18:00 01/16/24 11:01 1 STRIP Insulin Human Regular FOLLOW SLIDING SCALE Q6HR SC 12/28/23 18:00 01/14/24 17:39 2 UNITS Dextrose 50 ml UD IV 12/28/23 13:00 Insulin Glargine 15 units DAILY@1000 SC 12/29/23 12:15 01/12/24 09:56 15 UNITS Sodium Chloride 10 ml QSHIFT@,22 IV 01/05/24 22:00 01/16/24 07:24 10 ML Enoxaparin Sodium 40 mg DAILY SC 01/13/24 10:00 Hold 01/14/24 12:50 40 MG Metoclopramide HCl 10 mg Q8HR IV 01/12/24 22:00 01/16/24 12:55 10 MG Dextrose 1,000 ml @ 100 mls/hr Q10H IV 01/13/24 15:30 01/16/24 11:00 100 MLS/HR Acetaminophen 1,000 mg Q8HP PRN IV 01/13/24 18:00 01/14/24 03:47 1,000 MG Vancomycin HCl 0 ml @ 0 mls/hr UD IV 01/14/24 07:00 Meropenem 50 ml @ 17 mls/hr Q8H IV 01/14/24 20:00 01/16/24 11:00 17 MLS/HR Furosemide 40 mg TID IV 01/14/24 14:00 01/16/24 12:56 40 MG Lorazepam 0.5 mg Q6HP PRN IV 01/14/24 16:45 Ipratropium [place] 0.5 mg Q6HPRN PRN NEB 01/14/24 18:30 01/15/24 18:21 0.5 MG Fentanyl Citrate 250 ml @ 2.5 mls/hr Q24H IV 01/14/24 19:30 01/16/24 12:39 27.5 MLS/HR Norepinephrine Bitartrate 250 ml @ 3.75 mls/hr Q24H IV 01/14/24 19:30 Aspirin 81 mg DAILY PO 01/15/24 10:00 Hold Midazolam HCl 50 ml @ 1 mls/hr Q24H IV 01/14/24 20:00 01/16/24 15:46 13 MLS/HR Budesonide 0.5 mg BID NEB 01/15/24 10:00 01/16/24 07:32 0.5 MG Fat Emulsion Intravenous 50 ml/ Potassium Acetate 90 meq/Magnesium Sulfate 6 meq/ Multivitamins 10 ml/Amino Acids/ Dextrose/Purified Water 1,306.5 ml @ 54 mls/hr [id number] IV 01/15/24 22:00 01/16/24 21:59 01/15/24 21:48 54 MLS/HR Fat Emulsion Intravenous 50 ml/ Sodium Chloride 40 meq/Magnesium Sulfate 8 meq/ Multivitamins 10 ml/Amino Acids/ Dextrose/Purified Water 1,272 ml @ 53 mls/hr Q24H IV 01/16/24 22:00 01/17/24 21:59 Examination Gen. Sedated, intubated on mechanical ventilator. Head: Normocephalic, atraumatic. Eyes: PERRLA. Ears: Normal external anatomy. Throat: Endotracheal tube and orogastric tube in place. Neck: Supple, trachea midline. Chest: Transmitted breath sounds bilaterally. Decreased air entry bilaterally. No wheezing. Bibasilar crackles. Cardiovascular: Positive S1, positive S2. Regular rate and rhythm. Abdomen: Positive bowel sounds in all 4 quadrants. Soft, nontender, nondistended. : Davies in place. Normal external genitalia. Skin: Warm, dry. Intact. Extremities: 2+ radial pulses bilaterally. No lower extremity edema. Neuro: Sedated. laboratory and microbiology Laboratory Tests 01/16/24 04:35 Test 01/16/24 04:35 Range/Units Serum Glucose 108 H 74-106 mg/dL Microbiology Date/Time Source Procedure Growth Status 01/14/24 19:03 Trachea Gram Stain - Final Resulted 01/14/24 19:03 Trachea Respiratory Culture - Preliminary Resulted 01/14/24 10:28 Voided Urine Urine Culture - Final Complete 01/14/24 10:25 Blood Blood Culture - Preliminary NO GROWTH AFTER 48 HOURS OF INCUBATION. Resulted 01/12/24 16:13 Sputum Gram Stain - Final Complete 01/12/24 16:13 Respiratory Culture - Final Enterobacter cloacae Complete 01/07/24 15:20 Aspirate Gram Stain - Final Complete 01/07/24 15:20 Aspirate Body Fluid Culture - Final Complete 12/18/23 13:03 Stool Stool Culture - Final Complete 12/18/23 13:03 Stool Shiga Toxin I & II - Final Complete Problem List/Assessment/Plan Problem List/Assessment/Plan Neurology: Metabolic encephalopathy probably secondary to sepsis Currently patient is intubated Currently under empiric IV antibiotic (meropenem and vancomycin) Completed multiple head CTs with no acute intracranial pathology Cardiovascular Acute on chronic systolic congestive heart failure (HFrEF, LVEF 35%)-status post ICD placement Indicated albumin 25% t.i.d. x3 followed by IV furosemide 40 mg Completed point of care ultrasound at bedside: Evidence fluid overload with pulmonary comments. Echocardiogram during this admission: Severely reduced LVEF, 35%, anterior anteroapical wall akinesia, moderately reduced RV systolic function, rest of study within normal limits. History of coronary artery disease with cardiac arrest (VFib/V-tach) - status post PCI with stent placements Currently aspirin on hold (INR of 2). Completed stress test which showed no ischemia, multiple territories of infarcts NSTEMI type 2 Secondary to septic shock. Stress test negative for ischemia Respiratory Acute respiratory failure Patient during a.m. was on nasal cannula at 3 liters/minute. During Gastrografin study patient aspirated, currently is intubated on 01/14/2024 (VCV VT 450, RR 22, peep five, FiO2 50%) Completed new bronchoscopy 01/14/2024 since samples for culture and pathology. Aspiration pneumonia Secondary to Gastrografin study. Required endotracheal intubation on 01/14/2024 and bronchoscopy, pending culture and pathology. Multiple pneumonia secondary to Enterobacter cloacae Completed multiple courses of antibiotics Gastrointestinal Bowel obstruction secondary to sigmoid adenocarcinoma with hepatic metastasis - status post colectomy with terminal-terminal anastomosis Completed colectomy with terminal terminal anastomosis on 12/25/2023, with previous cardiological clearance. Patient on TPN due to presence of pelvic abscess. medical language specialist on board: Suggested Gastrografin study to evaluate bowel motility Pelvic abscess - status post failed percutaneous drainage Completed new abdomen and pelvis CT with contrast which shows abscess and pelvic area. Interventional radiologist consulted suggesting new drainage on Friday01/19/2024 Hepatomegaly secondary to liver metastasis due to sigmoid adenocarcinoma Monitor CMP and coagulation Transaminitis Secondary to above Genitourinary/Nephrology History of multiple UTIs Last urine culture with no evidence of bacterial growth Hypernatremia Currently on D5W 100ml/h Infectious Disease Septic shock probably secondary to aspiration pneumonia versus pelvic abscess - resolved Required maximum dose of vasopressors (four IV vasopressors). Currently with no IV vasopressors Completed multiple courses of antibiotic (febrile since tazobactam for two days, ceftriaxone for one day, vancomycin previously for 12 days, meropenem previously four 12 days) Multiple cultures completed, only positive 3 times sputum for Enterobacter cloacae (pelvic fluid, blood, and urine culture negative) Id specialist on board Persistent sepsis probably secondary to pelvic acid Completed new abdomen and pelvis CT with contrast which evidence abscess and pelvic area. Interventional radiologist consulted suggesting new drainage on Friday01/19/2024 Currently under empiric IV antibiotic (vancomycin and meropenem) Hematology Persistent leukocytosis Probably secondary to pelvic abscess Coagulopathy secondary to sepsis INR on 01/14/2024 approximately two. We will hold enoxaparin and aspirin Nutrition: TPN, no enteral feeding until bowel motility evaluated (has to be cleared by interactive media specialist) Prophylaxis for PUD and DVT: Currently on pantoprazole and SCDs Lines Left arm PICC line placed on 01/07/2024 New Davies catheter 01/14/2024 ET tube 01/14/2024 Drips Versed Fentanyl Abdomen and pelvis CT which evidence pelvic abscess. Surgery consult done and suggest abscess drainage. IR to proceed Friday unless patient becomes unstable. Critical Care time spent 91 minutes including, patient care, chart review and updating family, excluding procedure. Patient's changed the code status to DNR( no chest compression). Case discussed with Dr Hall Plan discussed with: Spouse Dietary Evaluation Review Comments: 1) Advance pt diet when medically feasible to a Cardiac diet 2) Continue current plan of care Expected Outcomes/Goals: 1) F/U in 3-5 days Date of Service: Jan 16, 2024 Billing Provider: LEO HALL MD Common Visit Codes: 64280-[id number] CARE 30-74 MIN NICHOLE CANCINO RESIDENT Jan 16, 2024 16:40 LEO HALL MD Jan 23, 2024 13:10
[2024-01-16] MEDS: FAT EMULSION IV NR (20:12)
[2024-01-16] MEDS: MAGNESIUM SULF IV NR (20:12)
[2024-01-16] MEDS: [UNRECOGNIZED DRUG - OTHER] IV NR (20:12)
[2024-01-16] MEDS: SODIUM CHLORIDE IV NR (20:12)
[2024-01-17] VITALS (107 sets, daily range): BP systolic 87–136; BP diastolic 5–66; PULSE 72–93; RESP 13–31; TEMP 97.8–99; O2SAT 93–100
[2024-01-17 03:51] LABS: Mean Corpuscular Hemoglobin 26.1 pg (28.0-32.0)
[2024-01-17 03:53] LABS: Hematocrit 24.4 % (36.0-46.0); Hemoglobin 7.9 g/dL (12.2-16.2); Mean Corpuscular Hgb Conc. 32.5 g/dL (32.0-36.0); Mean Corpuscular Volume 80.2 fL (80.0-100.0); Platelet Count (auto) 383 10^3/uL (140-450); Red Blood Cells 3.04 10^6/uL (4.0-5.20); Red Cell Distribution Width 25.5 % (11.8-14.3)
[2024-01-17 04:02] LABS: Basophils % (manual) 0 (0.0-2.0); Blast Cells 0; Metamyelocytes % 0; Myelocytes % 0; Promyelocytes % 0; Reactive Lymphocytes 0
[2024-01-17 04:05] LABS: Anion Gap 10 (5-15); BUN/Creatinine Ratio 55.9 (10.0-20.0); Carbon Dioxide 24 mmol/L (20-31); Chloride 100 mmol/L (98-107); Magnesium 1.9 mg/dL (1.6-2.6)
[2024-01-17 04:06] LABS: Total Protein 5.7 g/dL (5.7-8.2)
[2024-01-17 04:08] LABS: Alanine Aminotransferase 78 U/L (7-40); Albumin 2.9 g/dL (3.2-4.8); Alkaline Phosphatase 324 U/L (46-116); Aspartate Aminotransferase 189 U/L (13-40); Bilirubin, Total 6.2 mg/dL (0.2-1.0); Blood Urea Nitrogen 71 mg/dL (9-23); Calcium 8.5 mg/dL (8.7-10.4); Glucose 70 mg/dL (74-106); Phosphorus 5.1 mg/dL (2.4-5.1); Potassium 5.5 mmol/L (3.5-5.1); Sodium 134 mmol/L (136-145)
[2024-01-17 05:33] LABS: Anisocytosis Slight; Band Neutrophils % (manual) 3; Eosinophils % (manual) 2 (0-7); Hypochromia Slight; Lymphocytes % (manual) 7 (10.0-50.0); Monocytes % (manual) 2 (0-12); Platelet Estimate Adequate; Target Cell FEW
[2024-01-17] MEDS: DEXTROSE (50%) 50ML SYRG IV ONE (05:41)
[2024-01-17] MEDS: InsuLIN REG 1unit/0.01ml Soln (100units/ml) IV ONE (05:45)
--- NOTE | 2024-01-17 05:57 | DVH ---
CHEST RADIOGRAPH Indication: ET intubation Technique: Single frontal view of the chest was obtained Comparison: XY CHEST XRAY 1 VIEW on DOS: 01/16/24, XY CHEST XRAY 1 VIEW on DOS: 01/15/24, XY CHEST XR AY 1 VIEW on DOS: 01/14/24 IMPRESSION: Low lung volumes. Patchy subsegmental atelectasis in the right lung base with small right pleural eff usion. No pneumothorax. Support lines and tubes appear unchanged in position.
[2024-01-17 07:43] LABS: Base Excess -3.6 mmol/L (-2.0-3.0)
[2024-01-17] MEDS: FUROSEMIDE INJECTION 100 MG in SODIUM CHL 0.9% 100 ML IV SCH ×2 (09:24→13:30)
--- NOTE | 2024-01-17 10:23 | MEDREC ---
[facility] Intervention Section I [facility] Intervention: Review courses of therapy (PATIENT HAS BEEN ON MERREM + VANCO SINCE 01/13. THE WBC TRENDING DOWN. LARGE FLUID COLLECTION/ABSCESS IN THE PELVIS. THE PRELIMINARY RESPIRATORY CULTURE FROM [facility] SHOWED YEAST, NOT AJ ALBICANS. PLEASE CONSIDER ADDING ANTIFUNGAL IF NEEDED) MALLORY MARKS Jan 17, 2024 10:23
--- NOTE | 2024-01-17 10:47 | DVHPN2 ---
Progress Note - Dictate Date Seen: Jan 17, 2024 Medical Necessity Reason Pt with a Central, PICC or Fol: Yes The following are medically ne: PICC Line, Davies Catheter Reason for davies catheter: Strict I&O Subjective Patient was seen and examined at bedside. She is sedated, intubated on mechanical ventilator. Received a critical laboratory result of Vancomycin trough: 31.6 Antibiotic status: Vancomycin HCl 200 ml @ 200 mls/hr - [Started 12/31 - 01/07] restarted 01/13 Meropenem 50 ml @ 17 mls/hr - [Started - 01/02 - stopped] ; restarted 01/13 vital signs Vital Sign Date Time Temp Pulse Resp B/P (MAP) Pulse Ox O2 Delivery O2 Flow Rate FiO2 01/17/24 10:30 82 18 100/53 (69) 98 30 01/17/24 08:00 Mechanical Ventilator+ 01/17/24 08:00 97.8 97.8 Total Intake and Output 01/16/24 01/16/24 01/17/24 15:00 23:00 07:00 Intake Total 1507.0 ml 1605.0 ml 1610.25 ml Output Total 250 ml 300 ml Balance 1507.0 ml 1355.0 ml 1310.25 ml medications Current Medications Medications Dose Ordered Sig/Saige Route Start Time Stop Time Status Last Admin Dose Admin Nitroglycerin 0.4 mg Q5MINP PRN SL 12/25/23 16:00 Pantoprazole Sodium 40 mg DAILY IV 12/26/23 10:00 01/17/24 09:35 40 MG Ipratropium [place] 0.5 mg Q6HR NEB 12/27/23 18:00 Cancel Amino Acids 0 ml @ 0 mls/hr PER PHARMACY IV 12/28/23 12:00 Diagnostic Test (Pha) 1 strip Q6HR 12/28/23 18:00 01/17/24 05:31 1 STRIP Insulin Human Regular FOLLOW SLIDING SCALE Q6HR SC 12/28/23 18:00 01/14/24 17:39 2 UNITS Dextrose 50 ml UD IV 12/28/23 13:00 Insulin Glargine 15 units DAILY@1000 SC 12/29/23 12:15 01/12/24 09:56 15 UNITS Sodium Chloride 10 ml QSHIFT@ IV 01/05/24 22:00 01/17/24 09:35 10 ML Enoxaparin Sodium 40 mg DAILY SC 01/13/24 10:00 Hold 01/14/24 12:50 40 MG Metoclopramide HCl 10 mg Q8HR IV 01/12/24 22:00 01/17/24 05:41 10 MG Dextrose 1,000 ml @ 100 mls/hr Q10H IV 01/13/24 15:30 01/17/24 05:43 100 MLS/HR Acetaminophen 1,000 mg Q8HP PRN IV 01/13/24 18:00 01/14/24 03:47 1,000 MG Vancomycin HCl 0 ml @ 0 mls/hr UD IV 01/14/24 07:00 Meropenem 50 ml @ 17 mls/hr Q8H IV 01/14/24 20:00 01/17/24 03:32 17 MLS/HR Lorazepam 0.5 mg Q6HP PRN IV 01/14/24 16:45 Ipratropium [place] 0.5 mg Q6HPRN PRN NEB 01/14/24 18:30 01/17/24 06:16 0.5 MG Fentanyl Citrate 250 ml @ 2.5 mls/hr Q24H IV 01/14/24 19:30 01/17/24 05:43 27.5 MLS/HR Norepinephrine Bitartrate 250 ml @ 3.75 mls/hr Q24H IV 01/14/24 19:30 01/17/24 05:59 3.75 MLS/HR Aspirin 81 mg DAILY PO 01/15/24 10:00 Hold Midazolam HCl 50 ml @ 1 mls/hr Q24H IV 01/14/24 20:00 01/17/24 10:27 13 MLS/HR Budesonide 0.5 mg BID NEB 01/15/24 10:00 01/17/24 06:16 0.5 MG Fat Emulsion Intravenous 50 ml/ Sodium Chloride 40 meq/Magnesium Sulfate 8 meq/ Multivitamins 10 ml/Amino Acids/ Dextrose/Purified Water 1,272 ml @ 53 mls/hr Q24H IV 01/16/24 22:00 01/17/24 21:59 01/16/24 20:12 53 MLS/HR Furosemide 100 mg/ Sodium Chloride 110 ml @ 2.2 mls/hr Q24H IV 01/17/24 05:45 01/17/24 09:24 2.2 MLS/HR objective General.: Patient lying in bed in medical ICU. Sedated, intubated on mechanical ventilator. Head: Normocephalic, atraumatic. Eyes: PERRLA. Ears: Normal external anatomy. Throat: Endotracheal tube and orogastric tube in place. Neck: Supple, trachea midline. Chest: Transmitted breath sounds bilaterally. Decreased air entry bilaterally. No wheezing. Bibasilar crackles. Cardiovascular: Positive S1, positive S2. Regular rate and rhythm. Abdomen: Positive bowel sounds in all 4 quadrants. Soft, nontender, nondistended. : Davies in place. Normal external genitalia. Rectal: Deferred. Skin: Warm, dry. Intact. Extremities: 2+ radial pulses bilaterally. +4 pitting edema. Neuro: Sedated. laboratory and microbiology Laboratory Tests 01/17/24 03:25 Test 01/17/24 03:25 Range/Units Serum Glucose 70 L 74-106 mg/dL Assessment/Plan Patient is a 64-year-old female presents to the hospital with: # Pelvic abscess; colon leak septic shock vs distributive shock : resolved leucocytosis ? stress induced vs sepsis vs reactive Ventilator associated Pneumonia : [place] large bowel obstruction s/p colectomy s/p end to end anastomosis 12/24 possible colon cancer with mets ascites: malignant vs post surgical vs infection Liver mets acute hypoxic respiratory failure on mechanical ventilation CHF anasarca Recommendations: Ct abdomen and pelvis shows large collection, concern fo colon leak/ abscess surgery is on board, plan for IR drain on pressors broad spectrum antibiotics continue cultures review 01/06: body fluid cultures : few WBC seen , no organisms 01/05, Blood culture: No growth 01/05, Urine culture: No growth 01/04, Aerobic culture: No growth 12/29 : sputum culture notable for Enterobacter cloacae. CT pelvic wo contrast done on 01/06 : CT guided needle/catheter placement into the low pelvic fluid collection with aspiration of 1-2 mL of yellow serous fluid. overall prognosis is very poor with mets, crit time 35 minutes spent in co-ordination of care Thank you for the consult and for giving an opportunity to take care of this patient. Dietary Evaluation Review Comments: 1) Advance pt diet when medically feasible to a Cardiac diet 2) Continue current plan of care Expected Outcomes/Goals: 1) F/U in 3-5 days Plan discussed with: JASPREET Galvan MD Jan 17, 2024 10:47
--- NOTE | 2024-01-17 13:39 | DVHPN2 ---
Progress Note - Dictate Date Seen: Jan 17, 2024 Medical Necessity Reason Pt with a Central, PICC or Fol: Yes The following are medically ne: PICC Line, Davies Catheter Reason for davies catheter: Strict I&O Subjective E: started on levophed at 8 mcg. vital signs Vital Sign Date Time Temp Pulse Resp B/P (MAP) Pulse Ox O2 Delivery O2 Flow Rate FiO2 01/17/24 12:45 98.1 78 22 95/45 (62) 97 208.6 01/17/24 12:14 30 01/17/24 10:00 Mechanical Ventilator+ Total Intake and Output 01/16/24 01/16/24 01/17/24 15:00 23:00 07:00 Intake Total 1507.0 ml 1605.0 ml 1610.25 ml Output Total 250 ml 300 ml Balance 1507.0 ml 1355.0 ml 1310.25 ml medications Current Medications Medications Dose Ordered Sig/Saige Route Start Time Stop Time Status Last Admin Dose Admin Nitroglycerin 0.4 mg Q5MINP PRN SL 12/25/23 16:00 Pantoprazole Sodium 40 mg DAILY IV 12/26/23 10:00 01/17/24 09:35 40 MG Ipratropium [place] 0.5 mg Q6HR NEB 12/27/23 18:00 Cancel Amino Acids 0 ml @ 0 mls/hr PER PHARMACY IV 12/28/23 12:00 Diagnostic Test (Pha) 1 strip Q6HR 12/28/23 18:00 01/17/24 05:31 1 STRIP Insulin Human Regular FOLLOW SLIDING SCALE Q6HR SC 12/28/23 18:00 01/14/24 17:39 2 UNITS Dextrose 50 ml UD IV 12/28/23 13:00 Insulin Glargine 15 units DAILY@1000 SC 12/29/23 12:15 01/12/24 09:56 15 UNITS Sodium Chloride 10 ml QSHIFT@ IV 01/05/24 22:00 01/17/24 09:35 10 ML Enoxaparin Sodium 40 mg DAILY SC 01/13/24 10:00 Hold 01/14/24 12:50 40 MG Metoclopramide HCl 10 mg Q8HR IV 01/12/24 22:00 01/17/24 05:41 10 MG Acetaminophen 1,000 mg Q8HP PRN IV 01/13/24 18:00 01/14/24 03:47 1,000 MG Vancomycin HCl 0 ml @ 0 mls/hr UD IV 01/14/24 07:00 Meropenem 50 ml @ 17 mls/hr Q8H IV 01/14/24 20:00 01/17/24 11:44 17 MLS/HR Lorazepam 0.5 mg Q6HP PRN IV 01/14/24 16:45 Ipratropium [place] 0.5 mg Q6HPRN PRN NEB 01/14/24 18:30 01/17/24 06:16 0.5 MG Fentanyl Citrate 250 ml @ 2.5 mls/hr Q24H IV 01/14/24 19:30 01/17/24 05:43 27.5 MLS/HR Norepinephrine Bitartrate 250 ml @ 3.75 mls/hr Q24H IV 01/14/24 19:30 01/17/24 05:59 3.75 MLS/HR Aspirin 81 mg DAILY PO 01/15/24 10:00 Hold Midazolam HCl 50 ml @ 1 mls/hr Q24H IV 01/14/24 20:00 01/17/24 10:27 13 MLS/HR Budesonide 0.5 mg BID NEB 01/15/24 10:00 01/17/24 06:16 0.5 MG Fat Emulsion Intravenous 50 ml/ Sodium Chloride 40 meq/Magnesium Sulfate 8 meq/ Multivitamins 10 ml/Amino Acids/ Dextrose/Purified Water 1,272 ml @ 53 mls/hr Q24H IV 01/16/24 22:00 01/17/24 21:59 01/16/24 20:12 53 MLS/HR Fat Emulsion Intravenous 50 ml/ Sodium Chloride 60 meq/Magnesium Sulfate 8 meq/ Multivitamins 10 ml/Amino Acids/ Dextrose 1,027 ml @ 43 mls/hr [id number] IV 01/17/24 22:00 01/18/24 21:59 Furosemide 100 mg/ Sodium Chloride 110 ml @ 11 mls/hr Q10H IV 01/17/24 13:30 UNV objective GEN: NAD. intubated/sedated ABD: small 1 cm skin dehiscence at the lowest part of incision with serous drainage. diffuse edema of lower abdominal wall and hip region. laboratory and microbiology Laboratory Tests 01/17/24 11:58 01/17/24 03:25 Test 01/17/24 03:25 Range/Units Serum Glucose 70 L 74-106 mg/dL Assessment/Plan A: 1. s/p colectomy with poss pelvic abscess although not entirely clear on CT exam. P: 1. IR drainage tomorrow. Dietary Evaluation Review Comments: 1) Advance pt diet when medically feasible to a Cardiac diet 2) Continue current plan of care Expected Outcomes/Goals: 1) F/U in 3-5 days Plan discussed with: Other SALENA GANNON MD Jan 17, 2024 13:39
--- NOTE | 2024-01-17 14:10 | DVHPN2 ---
Subjective Intubated and sedated Reviewed: Care Plan, H&P, Labs, Medications, Previous Orders, Radiology, Other (Consultants) Changes from previous H/P or p: No Changes Objective Vitals Vital Signs Date Time Temp Pulse Resp B/P (MAP) Pulse Ox O2 Delivery O2 Flow Rate FiO2 01/17/24 12:45 98.1 78 22 95/45 (62) 97 208.6 01/17/24 12:14 30 01/17/24 10:00 Mechanical Ventilator+ Intake/Output Intake and Output 01/17/24 07:00 Intake Total 4722.25 ml Output Total 550 ml Balance 4172.25 ml IV Total 4722.25 ml Output Urine Total 400 ml Gastric Drainage Total 150 ml General Appearance: Other (Intubated and sedated) HEENT: Atraumatic, PERRLA Lungs: Clear to auscultation Cardiovascular: Regular rate Abdomen: Other (Serous drainage from lower abdominal wound. Clean wound. Darian in place.) Extremities: Other (edema) Neuro: Other (sedated and ventilated/has cough and gag reflex) Medications Current Medications Medications Dose Ordered Sig/Saige Route Start Time Stop Time Status Last Admin Dose Admin Nitroglycerin 0.4 mg Q5MINP PRN SL 12/25/23 16:00 Pantoprazole Sodium 40 mg DAILY IV 12/26/23 10:00 01/17/24 09:35 40 MG Ipratropium [place] 0.5 mg Q6HR NEB 12/27/23 18:00 Cancel Amino Acids 0 ml @ 0 mls/hr PER PHARMACY IV 12/28/23 12:00 Diagnostic Test (Pha) 1 strip Q6HR 12/28/23 18:00 01/17/24 05:31 1 STRIP Insulin Human Regular FOLLOW SLIDING SCALE Q6HR SC 12/28/23 18:00 01/14/24 17:39 2 UNITS Dextrose 50 ml UD IV 12/28/23 13:00 Insulin Glargine 15 units DAILY@1000 SC 12/29/23 12:15 01/12/24 09:56 15 UNITS Sodium Chloride 10 ml QSHIFT@10,22 IV 01/05/24 22:00 01/17/24 09:35 10 ML Enoxaparin Sodium 40 mg DAILY SC 01/13/24 10:00 Hold 01/14/24 12:50 40 MG Metoclopramide HCl 10 mg Q8HR IV 01/12/24 22:00 01/17/24 05:41 10 MG Acetaminophen 1,000 mg Q8HP PRN IV 01/13/24 18:00 01/14/24 03:47 1,000 MG Vancomycin HCl 0 ml @ 0 mls/hr UD IV 01/14/24 07:00 Meropenem 50 ml @ 17 mls/hr Q8H IV 01/14/24 20:00 01/17/24 11:44 17 MLS/HR Lorazepam 0.5 mg Q6HP PRN IV 01/14/24 16:45 Ipratropium [place] 0.5 mg Q6HPRN PRN NEB 01/14/24 18:30 01/17/24 06:16 0.5 MG Fentanyl Citrate 250 ml @ 2.5 mls/hr Q24H IV 01/14/24 19:30 01/17/24 05:43 27.5 MLS/HR Norepinephrine Bitartrate 250 ml @ 3.75 mls/hr Q24H IV 01/14/24 19:30 01/17/24 05:59 3.75 MLS/HR Aspirin 81 mg DAILY PO 01/15/24 10:00 Hold Midazolam HCl 50 ml @ 1 mls/hr Q24H IV 01/14/24 20:00 01/17/24 10:27 13 MLS/HR Budesonide 0.5 mg BID NEB 01/15/24 10:00 01/17/24 06:16 0.5 MG Fat Emulsion Intravenous 50 ml/ Sodium Chloride 40 meq/Magnesium Sulfate 8 meq/ Multivitamins 10 ml/Amino Acids/ Dextrose/Purified Water 1,272 ml @ 53 mls/hr Q24H IV 01/16/24 22:00 01/17/24 21:59 01/16/24 20:12 53 MLS/HR Fat Emulsion Intravenous 50 ml/ Sodium Chloride 60 meq/Magnesium Sulfate 8 meq/ Multivitamins 10 ml/Amino Acids/ Dextrose 1,027 ml @ 43 mls/hr [id number] IV 01/17/24 22:00 01/18/24 21:59 Furosemide 100 mg/ Sodium Chloride 110 ml @ 11 mls/hr Q10H IV 01/17/24 13:30 Norepinephrine Bitartrate 32 mg/ Sodium Chloride 250 ml @ 0.938 mls/ hr Q24H IV 01/17/24 13:45 Laboratory Results Laboratory Tests 01/17/24 03:25 01/17/24 11:58 Chemistry Test 01/17/24 03:25 Albumin 2.9 g/dL (3.2-4.8) L Calcium Level 8.5 mg/dL (8.7-10.4) L Magnesium Level 1.9 mg/dL (1.6-2.6) Phosphorus Level 5.1 mg/dL (2.4-5.1) Total Protein 5.7 g/dL (5.7-8.2) LFT Test 01/17/24 03:25 Alanine Aminotransferase (ALT) 78 U/L (7-40) H Alkaline Phosphatase 324 U/L (46-116) H Aspartate Amino Transferase (AST) 189 U/L (13-40) H Total Bilirubin 6.2 mg/dL (0.2-1.0) H Urinalysis Test 12/26/23 01:30 01/14/24 10:28 Urine Granular Casts Few /lpf (0) Urine Mucus Few (None Seen) Urine Yeast (Budding) Occasional /hpf (None Urine Creatinine 64.14 mg/dL (30.0-125.0) Urine Protein/Creatinine Ratio 1.97 Urine Sodium 35 mmol/L (40-220) L Urine Total Protein 126.3 mg/dL (1-14) H Urine Color Dark-yellow (Yellow) Urine Clarity Clear (Clear) Urine pH 5.5 (5.0-9.0) Urine Specific [place] 1.017 (1.001-1.035) Urine Protein 1+ (Negative) H Urine Ketones Negative (Negative) Urine Blood 1+ /uL (Negative) H Urine Nitrite Negative (Negative) Urine Bilirubin 1+ (Negative) H Urine Urobilinogen Normal mg/dL (Negative) Urine Leukocyte Esterase Negative /uL (Negative) Urine RBC 3 /hpf (0 - 4) Urine WBC 2 /hpf (0 - 5) Urine Squamous Epithelial Cells Few /hpf (<5) Urine Bacteria None seen /hpf (None Seen) Urine Hyaline Casts Few /lpf (0 - 2) Urine Glucose Normal mg/dL (Normal) Blood Gas Results Test 01/17/24 07:34 Arterial Blood pH 7.298 (7.350-7.450) FiO2 % 30.0 Microbiology Microbiology Date/Time Source Procedure Growth Status 01/14/24 19:03 Trachea Gram Stain - Final Resulted 01/14/24 19:03 Respiratory Culture - Preliminary Yeast, not Ayse albicans Resulted 01/14/24 10:28 Voided Urine Urine Culture - Final Complete 01/14/24 10:25 Blood Blood Culture - Preliminary NO GROWTH AFTER 72 HOURS OF INCUBATION. Resulted 01/12/24 16:13 Sputum Gram Stain - Final Complete 01/12/24 16:13 Respiratory Culture - Final Enterobacter cloacae Complete 01/07/24 15:20 Aspirate Gram Stain - Final Complete 01/07/24 15:20 Aspirate Body Fluid Culture - Final Complete 12/18/23 13:03 Stool Stool Culture - Final Complete 12/18/23 13:03 Stool Shiga Toxin I & II - Final Complete Assessment/Plan Assessment/Plan Acute respiratory failure Status post bowel obstruction Pelvic abscess formation Colon cancer with liver Mets Heart failure with EF 30% Status post AICD Coronary artery disease status post stents Non-STEMI Aspiration of Gastrografin Severe anemia Plan: Possible aspiration of pelvic abscess by Cardiology. Improved WBCs. Repeat labs. Monitor potassium. Monitor INR. Increase Lasix drip. Monitor the edema and anasarca. Further plan per orders. Total critical care time 35 minutes Plan discussed with: Other (Nursing) My Orders Orders - JAVI SHETH MD Procedure Category Date Status Time *Dr. [facility] CONS 01/17/24 Transmitted -[place] 12:58 Date of Service: Jan 17, 2024 Billing Provider: JAVI SHETH MD Common Visit Codes: [id number] CARE 30-74 MIN JAVI SHETH MD Jan 17, 2024 14:10
--- NOTE | 2024-01-17 15:23 | DVHPN2 ---
Progress Note Date Seen: Jan 17, 2024 Medical Necessity Reason Pt with a Central, PICC or Fol: Yes The following are medically ne: PICC Line, Davies Catheter Reason for davies catheter: Strict I&O Subjective Patient reports: Other (reintubated ,,reconsulted for oliguria,per rn 200cc uop overnight) Review of Systems: Deferred Objective vital signs Vital Sign Date Time Temp Pulse Resp B/P (MAP) Pulse Ox O2 Delivery O2 Flow Rate FiO2 01/17/24 14:51 114/57 01/17/24 14:12 82 22 97 30 01/17/24 12:45 98.1 208.6 01/17/24 10:00 Mechanical Ventilator+ Total Intake and Output 01/16/24 01/16/24 01/17/24 15:00 23:00 07:00 Intake Total 1507.0 ml 1605.0 ml 1610.25 ml Output Total 250 ml 300 ml Balance 1507.0 ml 1355.0 ml 1310.25 ml medications Current Medications Medications Dose Ordered Sig/Saige Route Start Time Stop Time Status Last Admin Dose Admin Nitroglycerin 0.4 mg Q5MINP PRN SL 12/25/23 16:00 Pantoprazole Sodium 40 mg DAILY IV 12/26/23 10:00 01/17/24 09:35 40 MG Ipratropium [place] 0.5 mg Q6HR NEB 12/27/23 18:00 Cancel Amino Acids 0 ml @ 0 mls/hr PER PHARMACY IV 12/28/23 12:00 Diagnostic Test (Pha) 1 strip Q6HR 12/28/23 18:00 01/17/24 14:12 1 STRIP Insulin Human Regular FOLLOW SLIDING SCALE Q6HR SC 12/28/23 18:00 01/14/24 17:39 2 UNITS Dextrose 50 ml UD IV 12/28/23 13:00 Insulin Glargine 15 units DAILY@1000 SC 12/29/23 12:15 01/12/24 09:56 15 UNITS Sodium Chloride 10 ml QSHIFT@ IV 01/05/24 22:00 01/17/24 09:35 10 ML Enoxaparin Sodium 40 mg DAILY SC 01/13/24 10:00 Hold 01/14/24 12:50 40 MG Metoclopramide HCl 10 mg Q8HR IV 01/12/24 22:00 01/17/24 14:13 10 MG Acetaminophen 1,000 mg Q8HP PRN IV 01/13/24 18:00 01/14/24 03:47 1,000 MG Vancomycin HCl 0 ml @ 0 mls/hr UD IV 01/14/24 07:00 Meropenem 50 ml @ 17 mls/hr Q8H IV 01/14/24 20:00 01/17/24 11:44 17 MLS/HR Lorazepam 0.5 mg Q6HP PRN IV 01/14/24 16:45 Ipratropium [place] 0.5 mg Q6HPRN PRN NEB 01/14/24 18:30 01/17/24 06:16 0.5 MG Fentanyl Citrate 250 ml @ 2.5 mls/hr Q24H IV 01/14/24 19:30 01/17/24 14:51 27.5 MLS/HR Norepinephrine Bitartrate 250 ml @ 3.75 mls/hr Q24H IV 01/14/24 19:30 01/17/24 05:59 3.75 MLS/HR Aspirin 81 mg DAILY PO 01/15/24 10:00 Hold Midazolam HCl 50 ml @ 1 mls/hr Q24H IV 01/14/24 20:00 01/17/24 14:15 13 MLS/HR Budesonide 0.5 mg BID NEB 01/15/24 10:00 01/17/24 06:16 0.5 MG Fat Emulsion Intravenous 50 ml/ Sodium Chloride 40 meq/Magnesium Sulfate 8 meq/ Multivitamins 10 ml/Amino Acids/ Dextrose/Purified Water 1,272 ml @ 53 mls/hr Q24H IV 01/16/24 22:00 01/17/24 21:59 01/16/24 20:12 53 MLS/HR Fat Emulsion Intravenous 50 ml/ Sodium Chloride 60 meq/Magnesium Sulfate 8 meq/ Multivitamins 10 ml/Amino Acids/ Dextrose 1,027 ml @ 43 mls/hr [id number] IV 01/17/24 22:00 01/18/24 21:59 Furosemide 100 mg/ Sodium Chloride 110 ml @ 11 mls/hr Q10H IV 01/17/24 13:30 Norepinephrine Bitartrate 32 mg/ Sodium Chloride 250 ml @ 0.938 mls/ hr Q24H IV 01/17/24 13:45 Examination: GENERAL:Abnormal, LUNGS:Abnormal, MSK:Abnormal (edema), SKIN:Abnormal, NEURO:Abnormal laboratory and microbiology Laboratory Tests 01/17/24 11:58 01/17/24 03:25 Test 01/17/24 03:25 Range/Units Serum Glucose 70 L 74-106 mg/dL Microbiology Date/Time Source Procedure Growth Status 01/14/24 19:03 Trachea Gram Stain - Final Resulted 01/14/24 19:03 Respiratory Culture - Preliminary Yeast, not Ayse albicans Resulted 01/14/24 10:28 Voided Urine Urine Culture - Final Complete 01/14/24 10:25 Blood Blood Culture - Preliminary NO GROWTH AFTER 72 HOURS OF INCUBATION. 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 Acute respiratory failure, intubated on ventilator Septic shock Metabolic acidosis Hyponatremia due excess H2O Transaminitis Microcytic anemia due to blood loss Iron deficiency Hypomagnesemia hyperkalemia Recommendations Reconsulted today given hyperkalemia oligo anuria Acute kidney injury Currently on Lasix drip at 2 mg/hour Change to Lasix drip at 10 mg/hour After finishing Lasix drip switch to Bumex drip Patient is significantly volume overloaded D5w hold BUN high secondary to TPN, diuretics, steroids We will follow Plan discussed with: Other My Orders My Orders Orders - ROXY OTOOLE MD Procedure Category Date Status Time Sodium Chl 0.9% PHA 01/17/24 In Process (So... W/Furosemide 13:30 Sodium Chl 0.9% PHA 01/17/24 In Process (Ns... 13:45 Give Un-Diluted PHA 01/17/24 Logged (Gi... W/Bumetanide 15:30 Dietary Evaluation Review Comments: 1) Advance pt diet when medically feasible to a Cardiac diet 2) Continue current plan of care Expected Outcomes/Goals: 1) F/U in 3-5 days ROXY OTOOLE MD Jan 17, 2024 15:23
[2024-01-17] MEDS: NOREPINEPHRINE BITARTRATE 32 MG in SODIUM CHL 0.9% 218 ML IV SCH (17:08)
[2024-01-17] MEDS: BUMETANIDE INJECTION 25 MG in GIVE UN-DILUTED 0 ML IV SCH (20:45)
[2024-01-17] MEDS: TPN PER PHARMACY IV NR (21:09)
--- NOTE | 2024-01-17 23:17 | DVHPN2 ---
Progress Note - Dictate Date Seen: Jan 17, 2024 Medical Necessity Reason Pt with a Central, PICC or Fol: Yes The following are medically ne: PICC Line, Davies Catheter Reason for davies catheter: Strict I&O Subjective Patient seen and examined at bedside. Sedated, intubated on mechanical ventilator. Overnight events reviewed. vital signs Vital Sign Date Time Temp Pulse Resp B/P (MAP) Pulse Ox O2 Delivery O2 Flow Rate FiO2 01/17/24 22:00 87 28 136/64 (88) 99 30 01/17/24 18:45 98.8 209.8 01/17/24 10:00 Mechanical Ventilator+ Total Intake and Output 01/16/24 01/16/24 01/17/24 15:00 23:00 07:00 Intake Total 1507.0 ml 1605.0 ml 1610.25 ml Output Total 250 ml 300 ml Balance 1507.0 ml 1355.0 ml 1310.25 ml medications Current Medications Medications Dose Ordered Sig/Saige Route Start Time Stop Time Status Last Admin Dose Admin Nitroglycerin 0.4 mg Q5MINP PRN SL 12/25/23 16:00 Pantoprazole Sodium 40 mg DAILY IV 12/26/23 10:00 01/17/24 09:35 40 MG Ipratropium [place] 0.5 mg Q6HR NEB 12/27/23 18:00 Cancel Amino Acids 0 ml @ 0 mls/hr PER PHARMACY IV 12/28/23 12:00 Diagnostic Test (Pha) 1 strip Q6HR 12/28/23 18:00 01/17/24 17:29 1 STRIP Insulin Human Regular FOLLOW SLIDING SCALE Q6HR SC 12/28/23 18:00 01/14/24 17:39 2 UNITS Dextrose 50 ml UD IV 12/28/23 13:00 Insulin Glargine 15 units DAILY@1000 SC 12/29/23 12:15 01/12/24 09:56 15 UNITS Sodium Chloride 10 ml QSHIFT@ IV 01/05/24 22:00 01/17/24 21:07 10 ML Enoxaparin Sodium 40 mg DAILY SC 01/13/24 10:00 Hold 01/14/24 12:50 40 MG Metoclopramide HCl 10 mg Q8HR IV 01/12/24 22:00 01/17/24 21:07 10 MG Acetaminophen 1,000 mg Q8HP PRN IV 01/13/24 18:00 01/14/24 03:47 1,000 MG Vancomycin HCl 0 ml @ 0 mls/hr UD IV 01/14/24 07:00 Meropenem 50 ml @ 17 mls/hr Q8H IV 01/14/24 20:00 01/17/24 20:44 17 MLS/HR Lorazepam 0.5 mg Q6HP PRN IV 01/14/24 16:45 Ipratropium [place] 0.5 mg Q6HPRN PRN NEB 01/14/24 18:30 01/17/24 22:02 0.5 MG Fentanyl Citrate 250 ml @ 2.5 mls/hr Q24H IV 01/14/24 19:30 01/17/24 14:51 27.5 MLS/HR Aspirin 81 mg DAILY PO 01/15/24 10:00 Hold Midazolam HCl 50 ml @ 1 mls/hr Q24H IV 01/14/24 20:00 01/17/24 18:26 13 MLS/HR Budesonide 0.5 mg BID NEB 01/15/24 10:00 01/17/24 22:02 0.5 MG Fat Emulsion Intravenous 50 ml/ Sodium Chloride 60 meq/Magnesium Sulfate 8 meq/ Multivitamins 10 ml/Amino Acids/ Dextrose 1,027 ml @ 43 mls/hr [id number] IV 01/17/24 22:00 01/18/24 21:59 01/17/24 21:09 43 MLS/HR Furosemide 100 mg/ Sodium Chloride 110 ml @ 11 mls/hr Q10H IV 01/17/24 13:30 Hold Norepinephrine Bitartrate 32 mg/ Sodium Chloride 250 ml @ 0.938 mls/ hr Q24H IV 01/17/24 13:45 01/17/24 17:08 1.875 MLS/HR Bumetanide 25 mg/ Miscellaneous 100 ml @ 4 mls/hr Q24H IV 01/17/24 15:30 01/17/24 20:45 4 MLS/HR objective Gen.: Patient lying in bed in medical ICU. Sedated, intubated on mechanical ventilator. Head: Normocephalic, atraumatic. Eyes: PERRLA. Ears: Normal external anatomy. Throat: Endotracheal tube and orogastric tube in place. Neck: Supple, trachea midline. Chest: Transmitted breath sounds bilaterally. Decreased air entry bilaterally. No wheezing. Bibasilar crackles. Cardiovascular: Positive S1, positive S2. Regular rate and rhythm. Abdomen: Positive bowel sounds in all 4 quadrants. Soft, nontender, nondistended. : Davies in place. Normal external genitalia. Rectal: Deferred. Skin: Warm, dry. Intact. Extremities: 2+ radial pulses bilaterally. No lower extremity edema. Neuro: Sedated. laboratory and microbiology Laboratory Tests 01/17/24 11:58 01/17/24 03:25 Test 01/17/24 03:25 Range/Units Serum Glucose 70 L 74-106 mg/dL Assessment/Plan Impression: Acute hypoxic respiratory failure On mechanical ventilator Sepsis due to liver abscess Possible MARCIANO in liver Chronic systolic heart failure CAD s/p PTCA with multiple stents and s/p defibrillator Distributive shock Metastatic colon cancer status post left colectomy Iron deficiency anemia Acute kidney injury due to shock Metabolic acidosis Lactic acidosis Events: On vent support Assist control mode with respiratory rate of 22, tidal volume 350, PEEP of 5, FiO2 of 30%. On pressors for hemodynamic support Levophed 4 mcg/min Titrate to keep mean arterial pressure greater than 65 mmHg. Sedated on Fentanyl, Versed. TPN for nutritional support Continue antibiotics. Diurese w/ Lasix drip Monitor renal function Surgery recs appreciated. Protonix for GI prophylaxis Patient is s/p exploratory laparotomy S/p therapeutic bronchoscopy with RML BAL on 01/03 Labs and imaging reviewed. Rest of plan as noted below. Plan: s/p intubation on mechanical ventilator CXR image and report reviewed. Devices in place. Small right-sided pleural effusion with associated atelectasis. ABG reviewed. Compensated Assist control mode with respiratory rate of 22, tidal volume 350, PEEP of 5, FiO2 of 30%. Titrate FIO2 to keep O2 saturation above 92%. VAP bundle Daily ABG and CXR while intubated. Sedate for ventilatory synchrony Pressors as necessary for hemodynamic support Titrate to keep MAP above 65 mmHg/SBP above 90 mmHg. Antibiotics. F/u cultures. Blood cultures no growth after 5 days. Sputum culture notable for Enterobacter cloacae. Monitor renal function Monitor ins/outs Diurese with Lasix to euvolemia Monitor electrolytes. Supplement as necessary. Monitor lactic acid due to lactic acidosis. Nutritional support. Accucheks, ISS. GI/DVT prophylaxis. Condition: Critical Prognosis: Poor given multiple comorbidities. Rest of plan per hospitalist and other consultants. A total of 35 minutes of critical care time was spent reviewing the patient record, examining the patient, making a diagnostic and therapeutic plan, discussing this plan with the medical personnel, following up on diagnostic studies and following the patient for clinical stability excluding any and all procedures. At least 50% of this time was spent in direct, [id number] contact. Thank you Dr. Heath for allowing me to participate in this patient's care. Further recommendations will depend on patient's clinical course. Please do not hesitate to contact me if you have any questions or concerns. This medical document was created using an electronic medical record system with TCM Bertha dictation system. Although this document has been carefully reviewed, there may still be some phonetic and typographical errors. These areas are purely typographical due to imperfections of the software programs, and do not reflect any compromise in the patient's medical care. Dietary Evaluation Review Comments: 1) Advance pt diet when medically feasible to a Cardiac diet 2) Continue current plan of care Expected Outcomes/Goals: 1) F/U in 3-5 days Plan discussed with: Other (WALKER Tavera) Critical Care Time(min): 35 DAYSI DYKES MD Jan 17, 2024 23:17
[2024-01-18] VITALS (108 sets, daily range): BP systolic 92–135; BP diastolic 42–70; PULSE 79–105; RESP 16–29; TEMP 97.7–99.7; O2SAT 94–100
[2024-01-18 04:06] LABS: Hematocrit 26.5 % (36.0-46.0); Hemoglobin 8.5 g/dL (12.2-16.2); Mean Corpuscular Hemoglobin 25.7 pg (28.0-32.0); Mean Corpuscular Hgb Conc. 31.9 g/dL (32.0-36.0); Mean Corpuscular Volume 80.7 fL (80.0-100.0); Platelet Count (auto) 411 10^3/uL (140-450); Red Blood Cells 3.29 10^6/uL (4.0-5.20); Red Cell Distribution Width 25.2 % (11.8-14.3)
[2024-01-18 04:14] LABS: Band Neutrophils % (manual) 0; Basophils % (manual) 0 (0.0-2.0); Metamyelocytes % 0; Myelocytes % 0; Promyelocytes % 0; Reactive Lymphocytes 0
[2024-01-18 04:15] LABS: Blast Cells 0
[2024-01-18 04:24] LABS: Anion Gap 13 (5-15); Carbon Dioxide 22 mmol/L (20-31); Chloride 100 mmol/L (98-107); Potassium 3.7 mmol/L (3.5-5.1)
[2024-01-18 04:25] LABS: BUN/Creatinine Ratio 62.5 (10.0-20.0); Magnesium 1.9 mg/dL (1.6-2.6)
[2024-01-18 04:27] LABS: Total Protein 5.8 g/dL (5.7-8.2)
[2024-01-18 04:33] LABS: Alanine Aminotransferase 84 U/L (7-40); Albumin 2.9 g/dL (3.2-4.8); Alkaline Phosphatase 319 U/L (46-116); Aspartate Aminotransferase 231 U/L (13-40); Bilirubin, Total 6.1 mg/dL (0.2-1.0); Blood Urea Nitrogen 70 mg/dL (9-23); Calcium 8.6 mg/dL (8.7-10.4); Glucose 107 mg/dL (74-106); Phosphorus 5.5 mg/dL (2.4-5.1); Sodium 135 mmol/L (136-145)
[2024-01-18 05:06] LABS: Eosinophils % (manual) 2 (0-7); Hypochromia Slight; Lymphocytes % (manual) 7 (10.0-50.0); Monocytes % (manual) 4 (0-12); Target Cell FEW
[2024-01-18 05:07] LABS: Anisocytosis Slight; Platelet Estimate Adequate; Stomatocytes Few
[2024-01-18 06:01] LABS: Triglycerides 175 mg/dL (< 150)
[2024-01-18 07:16] LABS: Base Excess -2.7 mmol/L (-2.0-3.0)
--- NOTE | 2024-01-18 07:54 | DVH ---
CLINICAL INFORMATION: 63 years old, Female; ET intubation. TECHNIQUE: Single AP portable chest radiograph was obtained. COMPARISON: XY CHEST XRAY 1 VIEW on DOS: 01/17/24, XY CHEST XRAY 1 VIEW on DOS: 01/16/24, XY CHEST XR AY 1 VIEW on DOS: 01/15/24 FINDINGS: Stable satisfactory positioning of the endotracheal tube, enteric tube, and left PICC. Grossly stable appearing right pleural effusion with overlying atelectasis and/or consolidation. Similar-appearing atelectasis in the left lung base. No pneumothorax. Low lung volumes limit evaluation. No other signi ficant interval change. IMPRESSION: No significant interval change as detailed above.
--- NOTE | 2024-01-18 08:31 | DVHPN2 ---
Progress Note - Dictate Date Seen: Jan 18, 2024 Medical Necessity Reason Pt with a Central, PICC or Fol: Yes The following are medically ne: PICC Line, Davies Catheter Reason for davies catheter: Strict I&O Subjective E: no major events o/n. vital signs Vital Sign Date Time Temp Pulse Resp B/P (MAP) Pulse Ox O2 Delivery O2 Flow Rate FiO2 01/18/24 08:25 88 24 109/54 (72) 96 30 01/18/24 07:00 99.0 210.2 01/18/24 06:00 Mechanical Ventilator+ Total Intake and Output 01/17/24 01/17/24 01/18/24 15:00 23:00 07:00 Intake Total 1412.6 ml 817.250 ml 749.000 ml Output Total 875 ml 2280 ml Balance 1412.6 ml -57.750 ml -1531.000 ml medications Current Medications Medications Dose Ordered Sig/Saige Route Start Time Stop Time Status Last Admin Dose Admin Nitroglycerin 0.4 mg Q5MINP PRN SL 12/25/23 16:00 Pantoprazole Sodium 40 mg DAILY IV 12/26/23 10:00 01/17/24 09:35 40 MG Ipratropium [place] 0.5 mg Q6HR NEB 12/27/23 18:00 Cancel Amino Acids 0 ml @ 0 mls/hr PER PHARMACY IV 12/28/23 12:00 Diagnostic Test (Pha) 1 strip Q6HR 12/28/23 18:00 01/18/24 05:53 1 STRIP Insulin Human Regular FOLLOW SLIDING SCALE Q6HR SC 12/28/23 18:00 01/14/24 17:39 2 UNITS Dextrose 50 ml UD IV 12/28/23 13:00 Insulin Glargine 15 units DAILY@1000 SC 12/29/23 12:15 01/12/24 09:56 15 UNITS Sodium Chloride 10 ml QSHIFT@ IV 01/05/24 22:00 01/17/24 21:07 10 ML Enoxaparin Sodium 40 mg DAILY SC 01/13/24 10:00 Hold 01/14/24 12:50 40 MG Metoclopramide HCl 10 mg Q8HR IV 01/12/24 22:00 01/18/24 06:03 10 MG Acetaminophen 1,000 mg Q8HP PRN IV 01/13/24 18:00 01/14/24 03:47 1,000 MG Vancomycin HCl 0 ml @ 0 mls/hr UD IV 01/14/24 07:00 Meropenem 50 ml @ 17 mls/hr Q8H IV 01/14/24 20:00 01/18/24 05:55 17 MLS/HR Lorazepam 0.5 mg Q6HP PRN IV 01/14/24 16:45 Ipratropium [place] 0.5 mg Q6HPRN PRN NEB 01/14/24 18:30 01/18/24 06:48 0.5 MG Fentanyl Citrate 250 ml @ 2.5 mls/hr Q24H IV 01/14/24 19:30 01/18/24 00:29 27.5 MLS/HR Aspirin 81 mg DAILY PO 01/15/24 10:00 Hold Midazolam HCl 50 ml @ 1 mls/hr Q24H IV 01/14/24 20:00 01/18/24 05:53 13 MLS/HR Budesonide 0.5 mg BID NEB 01/15/24 10:00 01/18/24 06:48 0.5 MG Fat Emulsion Intravenous 50 ml/ Sodium Chloride 60 meq/Magnesium Sulfate 8 meq/ Multivitamins 10 ml/Amino Acids/ Dextrose 1,027 ml @ 43 mls/hr [id number] IV 01/17/24 22:00 01/18/24 21:59 01/17/24 21:09 43 MLS/HR Furosemide 100 mg/ Sodium Chloride 110 ml @ 11 mls/hr Q10H IV 01/17/24 13:30 Hold Norepinephrine Bitartrate 32 mg/ Sodium Chloride 250 ml @ 0.938 mls/ hr Q24H IV 01/17/24 13:45 01/17/24 17:08 1.875 MLS/HR Bumetanide 25 mg/ Miscellaneous 100 ml @ 4 mls/hr Q24H IV 01/17/24 15:30 01/17/24 20:45 4 MLS/HR objective GEN: NAD. intubated/sedated ABD: small 1 cm skin dehiscence at the lowest part of incision with serous drainage. diffuse edema of lower abdominal wall and hip region. laboratory and microbiology Laboratory Tests 01/18/24 03:17 Test 01/18/24 03:17 Range/Units Serum Glucose 107 H 74-106 mg/dL Assessment/Plan A: 1. s/p colectomy with poss pelvic abscess although not entirely clear on CT exam. P: 1. IR drainage tomorrow. Dietary Evaluation Review Comments: 1) Advance pt diet when medically feasible to a Cardiac diet 2) Continue current plan of care Expected Outcomes/Goals: 1) F/U in 3-5 days Plan discussed with: Other SALENA GANNON MD Jan 18, 2024 08:31
--- NOTE | 2024-01-18 09:28 | ECG ---
[facility] Test Date: 2024-01-14 Test Time: 04:27:42 Pat Name: MONY CANCINO Department: Respiratoy Room: [address] [place] [address] A Gender: F Explosives Detonator: : 1960 Requested By: EZEQUIEL CONTRERAS Order Number: [id number] Reading MD: Gibran Keating Measurements Intervals [place] Rate: 150 P: 69 [place]: 111 QRS: 49 QRSD: 74 T: -49 QT: 296 QTc: 468 Interpretive Statements Sinus tachycardia Low voltage, extremity leads Minimal ST depression, inferior leads Electronically Signed On 01-19-2024 9:08:38 PST by Gibran Keating Please click the below link to view image of tracing.
--- NOTE | 2024-01-18 09:34 | DVHPN2 ---
Subjective Intubated and sedated Reviewed: Care Plan, H&P, Labs, Medications, Previous Orders, Radiology, Other (Consultants) Changes from previous H/P or p: No Changes Objective Vitals Vital Signs Date Time Temp Pulse Resp B/P (MAP) Pulse Ox O2 Delivery O2 Flow Rate FiO2 01/18/24 09:18 114/59 01/18/24 09:00 99.0 95 22 97 210.2 01/18/24 08:25 30 01/18/24 06:00 Mechanical Ventilator+ Intake/Output Intake and Output 01/18/24 07:00 Intake Total 2978.850 ml Output Total 3155 ml Balance -176.150 ml Intake Oral 0 ml IV Total 2978.850 ml Output Urine Total 2725 ml Gastric Drainage Total 100 ml Drainage Total 330 ml General Appearance: Other (Intubated and sedated) HEENT: Atraumatic, PERRLA Lungs: Clear to auscultation Cardiovascular: Regular rate Abdomen: Other (Serous drainage from lower abdominal wound. Clean wound. Darian in place.) Extremities: Other (edema) Neuro: Other (sedated and ventilated/has cough and gag reflex) Medications Current Medications Medications Dose Ordered Sig/Saige Route Start Time Stop Time Status Last Admin Dose Admin Nitroglycerin 0.4 mg Q5MINP PRN SL 12/25/23 16:00 Pantoprazole Sodium 40 mg DAILY IV 12/26/23 10:00 01/17/24 09:35 40 MG Ipratropium [place] 0.5 mg Q6HR NEB 12/27/23 18:00 Cancel Amino Acids 0 ml @ 0 mls/hr PER PHARMACY IV 12/28/23 12:00 Diagnostic Test (Pha) 1 strip Q6HR 12/28/23 18:00 01/18/24 05:53 1 STRIP Insulin Human Regular FOLLOW SLIDING SCALE Q6HR SC 12/28/23 18:00 01/14/24 17:39 2 UNITS Dextrose 50 ml UD IV 12/28/23 13:00 Insulin Glargine 15 units DAILY@1000 SC 12/29/23 12:15 01/12/24 09:56 15 UNITS Sodium Chloride 10 ml QSHIFT@10,22 IV 01/05/24 22:00 01/17/24 21:07 10 ML Enoxaparin Sodium 40 mg DAILY SC 01/13/24 10:00 Hold 01/14/24 12:50 40 MG Metoclopramide HCl 10 mg Q8HR IV 01/12/24 22:00 01/18/24 06:03 10 MG Acetaminophen 1,000 mg Q8HP PRN IV 01/13/24 18:00 01/14/24 03:47 1,000 MG Meropenem 50 ml @ 17 mls/hr Q8H IV 01/14/24 20:00 01/18/24 05:55 17 MLS/HR Lorazepam 0.5 mg Q6HP PRN IV 01/14/24 16:45 Ipratropium [place] 0.5 mg Q6HPRN PRN NEB 01/14/24 18:30 01/18/24 06:48 0.5 MG Fentanyl Citrate 250 ml @ 2.5 mls/hr Q24H IV 01/14/24 19:30 01/18/24 09:18 27.5 MLS/HR Aspirin 81 mg DAILY PO 01/15/24 10:00 Hold Midazolam HCl 50 ml @ 1 mls/hr Q24H IV 01/14/24 20:00 01/18/24 09:10 13 MLS/HR Budesonide 0.5 mg BID NEB 01/15/24 10:00 01/18/24 06:48 0.5 MG Fat Emulsion Intravenous 50 ml/ Sodium Chloride 60 meq/Magnesium Sulfate 8 meq/ Multivitamins 10 ml/Amino Acids/ Dextrose 1,027 ml @ 43 mls/hr [id number] IV 01/17/24 22:00 01/18/24 21:59 01/17/24 21:09 43 MLS/HR Furosemide 100 mg/ Sodium Chloride 110 ml @ 11 mls/hr Q10H IV 01/17/24 13:30 Hold Norepinephrine Bitartrate 32 mg/ Sodium Chloride 250 ml @ 0.938 mls/ hr Q24H IV 01/17/24 13:45 01/17/24 17:08 1.875 MLS/HR Bumetanide 25 mg/ Miscellaneous 100 ml @ 4 mls/hr Q24H IV 01/17/24 15:30 01/17/24 20:45 4 MLS/HR Micafungin Sodium 100 mg/Sodium Chloride 100 ml @ 100 mls/hr DAILY IV 01/18/24 10:00 UNV Linezolid 300 ml @ 150 mls/hr Q12HR IV 01/18/24 10:00 UNV Laboratory Results Laboratory Tests 01/18/24 03:17 Chemistry Test 01/18/24 03:17 Albumin 2.9 g/dL (3.2-4.8) L Calcium Level 8.6 mg/dL (8.7-10.4) L Magnesium Level 1.9 mg/dL (1.6-2.6) Phosphorus Level 5.5 mg/dL (2.4-5.1) H Total Protein 5.8 g/dL (5.7-8.2) Lipid panel Test 01/18/24 03:17 Triglycerides Level 175 mg/dL (< 150) H LFT Test 01/18/24 03:17 Alanine Aminotransferase (ALT) 84 U/L (7-40) H Alkaline Phosphatase 319 U/L (46-116) H Aspartate Amino Transferase (AST) 231 U/L (13-40) H Total Bilirubin 6.1 mg/dL (0.2-1.0) H Urinalysis Test 12/26/23 01:30 01/14/24 10:28 Urine Granular Casts Few /lpf (0) Urine Mucus Few (None Seen) Urine Yeast (Budding) Occasional /hpf (None Urine Creatinine 64.14 mg/dL (30.0-125.0) Urine Protein/Creatinine Ratio 1.97 Urine Sodium 35 mmol/L (40-220) L Urine Total Protein 126.3 mg/dL (1-14) H Urine Color Dark-yellow (Yellow) Urine Clarity Clear (Clear) Urine pH 5.5 (5.0-9.0) Urine Specific [place] 1.017 (1.001-1.035) Urine Protein 1+ (Negative) H Urine Ketones Negative (Negative) Urine Blood 1+ /uL (Negative) H Urine Nitrite Negative (Negative) Urine Bilirubin 1+ (Negative) H Urine Urobilinogen Normal mg/dL (Negative) Urine Leukocyte Esterase Negative /uL (Negative) Urine RBC 3 /hpf (0 - 4) Urine WBC 2 /hpf (0 - 5) Urine Squamous Epithelial Cells Few /hpf (<5) Urine Bacteria None seen /hpf (None Seen) Urine Hyaline Casts Few /lpf (0 - 2) Urine Glucose Normal mg/dL (Normal) Blood Gas Results Test 01/18/24 07:03 Arterial Blood pH 7.333 (7.350-7.450) FiO2 % 30.0 Microbiology Microbiology Date/Time Source Procedure Growth Status 01/14/24 19:03 Trachea Gram Stain - Final Complete 01/14/24 19:03 Respiratory Culture - Final Yeast, not Ayse albicans Complete 01/14/24 10:28 Voided Urine Urine Culture - Final Complete 01/14/24 10:25 Blood Blood Culture - Preliminary NO GROWTH AFTER 72 HOURS OF INCUBATION. Resulted 01/12/24 16:13 Sputum Gram Stain - Final Complete 01/12/24 16:13 Respiratory Culture - Final Enterobacter cloacae Complete 01/07/24 15:20 Aspirate Gram Stain - Final Complete 01/07/24 15:20 Aspirate Body Fluid Culture - Final Complete 12/18/23 13:03 Stool Stool Culture - Final Complete 12/18/23 13:03 Stool Shiga Toxin I & II - Final Complete Assessment/Plan Assessment/Plan Acute respiratory failure Status post bowel obstruction Pelvic abscess formation Colon cancer with liver Mets Heart failure with EF 30% Status post AICD Coronary artery disease status post stents Non-STEMI Aspiration of Gastrografin Severe anemia Plan: Interventional radiology for abscess aspiration. Worsening WBCs. Repeat labs. Repeat chest x-ray. We will stop vancomycin and start Zyvox due to the kidney function. Start anti fungus treatment. Monitor the edema and anasarca. Further plan per orders. Total critical care time 40 minutes Plan discussed with: Other (Nursing) My Orders Orders - JAVI SHETH MD Procedure Category Date Status Time *Dr. [facility] CONS 01/17/24 Transmitted -[place] 12:58 Micafungin Sodium PHA 01/18/24 Logged (Mycamine) 10:00 Linezolid 600mg/300ml PHA 01/18/24 Logged (Zyvox) 10:00 Complete Blood Count LAB 01/19/24 Verified 06:00 Comprehensive LAB 01/19/24 Verified Metabolic Panel 06:00 B-Type Natriuretic LAB 01/19/24 Verified Peptide 06:00 Chest Portable XY 01/19/24 Logged 06:00 Date of Service: Jan 18, 2024 Billing Provider: JAVI SHETH MD Common Visit Codes: [id number] CARE 30-74 MIN JAVI SHETH MD Jan 18, 2024 09:34
[2024-01-18] MEDS: LINEZOLID 600MG/300ML 300 ML IV SCH (11:11)
[2024-01-18] MEDS: MICAFUNGIN SODIUM 100 MG in SODIUM CHL 0.9% 100 ML IV SCH (11:11)
--- NOTE | 2024-01-18 12:58 | DVHPN2 ---
Progress Note - Dictate Date Seen: Jan 18, 2024 Medical Necessity Reason Pt with a Central, PICC or Fol: Yes The following are medically ne: PICC Line, Davies Catheter Reason for davies catheter: Strict I&O Subjective . She is sedated, intubated on mechanical ventilator. Received a critical laboratory result of Vancomycin trough: 31.6 Interventional radiology for abscess aspiration. Worsening WBCs. Antibiotic status: Vancomycin HCl 200 ml @ 200 mls/hr - [Started 12/31 - 01/07] stopped 01/17 Linezolid [ started 01/17 Meropenem 50 ml @ 17 mls/hr - [Started - 01/02 - stopped] ; restarted 01/13 vital signs Vital Sign Date Time Temp Pulse Resp B/P (MAP) Pulse Ox O2 Delivery O2 Flow Rate FiO2 01/18/24 12:00 22 97 Mechanical Ventilator+ 30 30 01/18/24 12:00 105 01/18/24 11:55 131/57 (81) 01/18/24 11:45 99.5 211.1 Total Intake and Output 01/17/24 01/17/24 01/18/24 15:00 23:00 07:00 Intake Total 1412.6 ml 817.250 ml 749.000 ml Output Total 875 ml 2280 ml Balance 1412.6 ml -57.750 ml -1531.000 ml medications Current Medications Medications Dose Ordered Sig/Saige Route Start Time Stop Time Status Last Admin Dose Admin Nitroglycerin 0.4 mg Q5MINP PRN SL 12/25/23 16:00 Pantoprazole Sodium 40 mg DAILY IV 12/26/23 10:00 01/18/24 09:48 40 MG Ipratropium [place] 0.5 mg Q6HR NEB 12/27/23 18:00 Cancel Amino Acids 0 ml @ 0 mls/hr PER PHARMACY IV 12/28/23 12:00 Diagnostic Test (Pha) 1 strip Q6HR 12/28/23 18:00 01/18/24 05:53 1 STRIP Insulin Human Regular FOLLOW SLIDING SCALE Q6HR SC 12/28/23 18:00 01/14/24 17:39 2 UNITS Dextrose 50 ml UD IV 12/28/23 13:00 Insulin Glargine 15 units DAILY@1000 SC 12/29/23 12:15 01/12/24 09:56 15 UNITS Sodium Chloride 10 ml QSHIFT@10,22 IV 01/05/24 22:00 01/18/24 09:48 10 ML Enoxaparin Sodium 40 mg DAILY SC 01/13/24 10:00 Hold 01/14/24 12:50 40 MG Metoclopramide HCl 10 mg Q8HR IV 01/12/24 22:00 01/18/24 06:03 10 MG Acetaminophen 1,000 mg Q8HP PRN IV 01/13/24 18:00 01/14/24 03:47 1,000 MG Meropenem 50 ml @ 17 mls/hr Q8H IV 01/14/24 20:00 01/18/24 05:55 17 MLS/HR Lorazepam 0.5 mg Q6HP PRN IV 01/14/24 16:45 Ipratropium [place] 0.5 mg Q6HPRN PRN NEB 01/14/24 18:30 01/18/24 06:48 0.5 MG Fentanyl Citrate 250 ml @ 2.5 mls/hr Q24H IV 01/14/24 19:30 01/18/24 09:18 27.5 MLS/HR Aspirin 81 mg DAILY PO 01/15/24 10:00 Hold Midazolam HCl 50 ml @ 1 mls/hr Q24H IV 01/14/24 20:00 01/18/24 09:10 13 MLS/HR Budesonide 0.5 mg BID NEB 01/15/24 10:00 01/18/24 06:48 0.5 MG Fat Emulsion Intravenous 50 ml/ Sodium Chloride 60 meq/Magnesium Sulfate 8 meq/ Multivitamins 10 ml/Amino Acids/ Dextrose 1,027 ml @ 43 mls/hr [id number] IV 01/17/24 22:00 01/18/24 21:59 01/17/24 21:09 43 MLS/HR Furosemide 100 mg/ Sodium Chloride 110 ml @ 11 mls/hr Q10H IV 01/17/24 13:30 Hold Norepinephrine Bitartrate 32 mg/ Sodium Chloride 250 ml @ 0.938 mls/ hr Q24H IV 01/17/24 13:45 01/17/24 17:08 1.875 MLS/HR Bumetanide 25 mg/ Miscellaneous 100 ml @ 4 mls/hr Q24H IV 01/17/24 15:30 01/17/24 20:45 4 MLS/HR Micafungin Sodium 100 mg/Sodium Chloride 100 ml @ 100 mls/hr DAILY IV 01/18/24 10:00 01/18/24 11:11 100 MLS/HR Linezolid 300 ml @ 150 mls/hr Q12HR IV 01/18/24 10:00 01/18/24 11:11 150 MLS/HR objective General.: Patient lying in bed in medical ICU. Sedated, intubated on mechanical ventilator. Head: Normocephalic, atraumatic. Eyes: PERRLA. Ears: Normal external anatomy. Throat: Endotracheal tube and orogastric tube in place. Neck: Supple, trachea midline. Chest: Transmitted breath sounds bilaterally. Decreased air entry bilaterally. No wheezing. Bibasilar crackles. Cardiovascular: Positive S1, positive S2. Regular rate and rhythm. Abdomen: Positive bowel sounds in all 4 quadrants. Soft, nontender, nondistended. : Davies in place. Normal external genitalia. Rectal: Deferred. Skin: Warm, dry. Intact. Extremities: 2+ radial pulses bilaterally. +4 pitting edema. Neuro: Sedated. laboratory and microbiology Laboratory Tests 01/18/24 03:17 Test 01/18/24 03:17 Range/Units Serum Glucose 107 H 74-106 mg/dL Assessment/Plan Patient is a 64-year-old female presents to the hospital with: # Pelvic abscess; colon leak septic shock vs distributive shock : resolved leucocytosis ? stress induced vs sepsis vs reactive Ventilator associated Pneumonia : [place] large bowel obstruction s/p colectomy s/p end to end anastomosis 12/24 possible colon cancer with mets ascites: malignant vs post surgical vs infection Liver mets acute hypoxic respiratory failure on mechanical ventilation CHF anasarca Recommendations: repeat Ct abdomen and pelvis shows large collection, concern fo colon leak/ abscess surgery is on board, plan for IR drain tomorrow on pressors broad spectrum antibiotics continue Vancomycin was stopped on 01/17 on zyvox 300ml 150 ml/hr due to kidney function. Antifungal micafungin started today 01/17 cultures review 01/06: body fluid cultures : few WBC seen , no organisms 01/05, Blood culture: No growth 01/05, Urine culture: No growth 01/04, Aerobic culture: No growth 12/29 : sputum culture notable for Enterobacter cloacae. overall prognosis is very poor with mets, crit time 35 minutes spent in co-ordination of care Thank you for the consult and for giving an opportunity to take care of this patient. Dietary Evaluation Review Comments: 1) Advance pt diet when medically feasible to a Cardiac diet 2) Continue current plan of care Expected Outcomes/Goals: 1) F/U in 3-5 days Plan discussed with: Other JASPREET ALVAREZ MD Jan 18, 2024 12:58
--- NOTE | 2024-01-18 17:01 | DVHPN2 ---
Progress Note Date Seen: Jan 18, 2024 Medical Necessity Reason Pt with a Central, PICC or Fol: Yes The following are medically ne: PICC Line, Davies Catheter Reason for davies catheter: Strict I&O Subjective Patient reports: Other (intubated) Review of Systems: Deferred Objective vital signs Vital Sign Date Time Temp Pulse Resp B/P (MAP) Pulse Ox O2 Delivery O2 Flow Rate FiO2 01/18/24 16:00 30 01/18/24 16:00 22 97 Mechanical Ventilator+ 01/18/24 15:47 98 105/50 (68) 01/18/24 15:00 99.3 210.7 Total Intake and Output 01/17/24 01/17/24 01/18/24 15:00 23:00 07:00 Intake Total 1412.6 ml 817.250 ml 749.000 ml Output Total 875 ml 2280 ml Balance 1412.6 ml -57.750 ml -1531.000 ml medications Current Medications Medications Dose Ordered Sig/Saige Route Start Time Stop Time Status Last Admin Dose Admin Nitroglycerin 0.4 mg Q5MINP PRN SL 12/25/23 16:00 Pantoprazole Sodium 40 mg DAILY IV 12/26/23 10:00 01/18/24 09:48 40 MG Ipratropium [place] 0.5 mg Q6HR NEB 12/27/23 18:00 Cancel Amino Acids 0 ml @ 0 mls/hr PER PHARMACY IV 12/28/23 12:00 Diagnostic Test (Pha) 1 strip Q6HR 12/28/23 18:00 01/18/24 12:41 1 STRIP Insulin Human Regular FOLLOW SLIDING SCALE Q6HR SC 12/28/23 18:00 01/18/24 12:55 2 UNITS Dextrose 50 ml UD IV 12/28/23 13:00 Insulin Glargine 15 units DAILY@1000 SC 12/29/23 12:15 01/12/24 09:56 15 UNITS Sodium Chloride 10 ml QSHIFT@ IV 01/05/24 22:00 01/18/24 09:48 10 ML Enoxaparin Sodium 40 mg DAILY SC 01/13/24 10:00 Hold 01/14/24 12:50 40 MG Metoclopramide HCl 10 mg Q8HR IV 01/12/24 22:00 01/18/24 14:32 10 MG Acetaminophen 1,000 mg Q8HP PRN IV 01/13/24 18:00 01/14/24 03:47 1,000 MG Meropenem 50 ml @ 17 mls/hr Q8H IV 01/14/24 20:00 01/18/24 12:41 17 MLS/HR Lorazepam 0.5 mg Q6HP PRN IV 01/14/24 16:45 Ipratropium [place] 0.5 mg Q6HPRN PRN NEB 01/14/24 18:30 01/18/24 06:48 0.5 MG Fentanyl Citrate 250 ml @ 2.5 mls/hr Q24H IV 01/14/24 19:30 01/18/24 09:18 27.5 MLS/HR Aspirin 81 mg DAILY PO 01/15/24 10:00 Hold Midazolam HCl 50 ml @ 1 mls/hr Q24H IV 01/14/24 20:00 01/18/24 12:45 13 MLS/HR Budesonide 0.5 mg BID NEB 01/15/24 10:00 01/18/24 06:48 0.5 MG Fat Emulsion Intravenous 50 ml/ Sodium Chloride 60 meq/Magnesium Sulfate 8 meq/ Multivitamins 10 ml/Amino Acids/ Dextrose 1,027 ml @ 43 mls/hr [id number] IV 01/17/24 22:00 01/18/24 21:59 01/17/24 21:09 43 MLS/HR Furosemide 100 mg/ Sodium Chloride 110 ml @ 11 mls/hr Q10H IV 01/17/24 13:30 Hold Norepinephrine Bitartrate 32 mg/ Sodium Chloride 250 ml @ 0.938 mls/ hr Q24H IV 01/17/24 13:45 01/18/24 14:44 0.938 MLS/HR Bumetanide 25 mg/ Miscellaneous 100 ml @ 4 mls/hr Q24H IV 01/17/24 15:30 01/18/24 14:41 4 MLS/HR Micafungin Sodium 100 mg/Sodium Chloride 100 ml @ 100 mls/hr DAILY IV 01/18/24 10:00 01/18/24 11:11 100 MLS/HR Linezolid 300 ml @ 150 mls/hr Q12HR IV 01/18/24 10:00 01/18/24 11:11 150 MLS/HR Fat Emulsion Intravenous 50 ml/ Sodium Chloride 60 meq/Potassium Chloride 20 meq/ Magnesium Sulfate 8 meq/ Multivitamins 10 ml/Amino Acids/ Dextrose 1,037 ml @ 43 mls/hr Q24H7M IV 01/18/24 22:00 01/19/24 21:59 Examination: GENERAL:Abnormal, LUNGS:Abnormal, MSK:Abnormal (edema ), SKIN:Abnormal, NEURO:Abnormal laboratory and microbiology Laboratory Tests 01/18/24 03:17 Test 01/18/24 03:17 Range/Units Serum Glucose 107 H 74-106 mg/dL Microbiology Date/Time Source Procedure Growth Status 01/14/24 19:03 Trachea Gram Stain - Final Complete 01/14/24 19:03 Respiratory Culture - Final Yeast, not Ayse albicans Complete 01/14/24 10:28 Voided Urine Urine Culture - Final Complete 01/14/24 10:25 Blood Blood Culture - Preliminary NO GROWTH AFTER 72 HOURS OF INCUBATION. 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 Acute respiratory failure, intubated on ventilator Septic shock Metabolic acidosis Hyponatremia due excess H2O Transaminitis Microcytic anemia due to blood loss Iron deficiency Hypomagnesemia hyperkalemia Recommendations Reconsulted given hyperkalemia oligo anuria// Acute kidney injury Bumex drip Patient is significantly volume overloaded dc ivf BUN high secondary to TPN, diuretics, steroids We will follow better k and renal function today///k recheck PM Plan discussed with: Other My Orders My Orders Orders - ROXY OTOOLE MD Procedure Category Date Status Time Potassium LAB 01/18/24 In Process 16:00 Dietary Evaluation Review Comments: 1) Advance pt diet when medically feasible to a Cardiac diet 2) Continue current plan of care Expected Outcomes/Goals: 1) F/U in 3-5 days ROXY OTOOLE MD Jan 18, 2024 17:01
[2024-01-18] MEDS: TPN PER PHARMACY IV NR (21:59)
[2024-01-18] MEDS: MAGNESIUM SULFATE 1GM/100ML 100 ML IV SCH (22:32)
[2024-01-18] MEDS: POTASSIUM CHL 20MEQ/100ML 100 ML IV SCH (22:32)
--- NOTE | 2024-01-18 22:59 | DVHPN2 ---
Progress Note - Dictate Date Seen: Jan 18, 2024 Medical Necessity Reason Pt with a Central, PICC or Fol: Yes The following are medically ne: PICC Line, Davies Catheter Reason for davies catheter: Strict I&O Subjective Patient seen and examined at bedside. Sedated, intubated on mechanical ventilator. Overnight events reviewed. vital signs Vital Sign Date Time Temp Pulse Resp B/P (MAP) Pulse Ox O2 Delivery O2 Flow Rate FiO2 01/18/24 22:15 88 26 119/52 (74) 97 30 01/18/24 22:15 98.2 208.8 01/18/24 22:00 Mechanical Ventilator+ Total Intake and Output 01/17/24 01/17/24 01/18/24 15:00 23:00 07:00 Intake Total 1412.6 ml 817.250 ml 749.000 ml Output Total 875 ml 2280 ml Balance 1412.6 ml -57.750 ml -1531.000 ml medications Current Medications Medications Dose Ordered Sig/Saige Route Start Time Stop Time Status Last Admin Dose Admin Nitroglycerin 0.4 mg Q5MINP PRN SL 12/25/23 16:00 Pantoprazole Sodium 40 mg DAILY IV 12/26/23 10:00 01/18/24 09:48 40 MG Ipratropium [place] 0.5 mg Q6HR NEB 12/27/23 18:00 Cancel Amino Acids 0 ml @ 0 mls/hr PER PHARMACY IV 12/28/23 12:00 Diagnostic Test (Pha) 1 strip Q6HR 12/28/23 18:00 01/18/24 19:30 1 STRIP Insulin Human Regular FOLLOW SLIDING SCALE Q6HR SC 12/28/23 18:00 01/18/24 12:55 2 UNITS Dextrose 50 ml UD IV 12/28/23 13:00 Insulin Glargine 15 units DAILY@1000 SC 12/29/23 12:15 01/12/24 09:56 15 UNITS Sodium Chloride 10 ml QSHIFT@ IV 01/05/24 22:00 01/18/24 21:05 10 ML Enoxaparin Sodium 40 mg DAILY SC 01/13/24 10:00 Hold 01/14/24 12:50 40 MG Metoclopramide HCl 10 mg Q8HR IV 01/12/24 22:00 01/18/24 14:32 10 MG Acetaminophen 1,000 mg Q8HP PRN IV 01/13/24 18:00 01/14/24 03:47 1,000 MG Meropenem 50 ml @ 17 mls/hr Q8H IV 01/14/24 20:00 01/18/24 19:30 17 MLS/HR Lorazepam 0.5 mg Q6HP PRN IV 01/14/24 16:45 Ipratropium [place] 0.5 mg Q6HPRN PRN NEB 01/14/24 18:30 01/18/24 22:14 0.5 MG Fentanyl Citrate 250 ml @ 2.5 mls/hr Q24H IV 01/14/24 19:30 01/18/24 17:56 27.5 MLS/HR Aspirin 81 mg DAILY PO 01/15/24 10:00 Hold Midazolam HCl 50 ml @ 1 mls/hr Q24H IV 01/14/24 20:00 01/18/24 20:47 13 MLS/HR Budesonide 0.5 mg BID NEB 01/15/24 10:00 01/18/24 22:14 0.5 MG Furosemide 100 mg/ Sodium Chloride 110 ml @ 11 mls/hr Q10H IV 01/17/24 13:30 Hold Norepinephrine Bitartrate 32 mg/ Sodium Chloride 250 ml @ 0.938 mls/ hr Q24H IV 01/17/24 13:45 01/18/24 14:44 0.938 MLS/HR Bumetanide 25 mg/ Miscellaneous 100 ml @ 4 mls/hr Q24H IV 01/17/24 15:30 01/18/24 14:41 4 MLS/HR Micafungin Sodium 100 mg/Sodium Chloride 100 ml @ 100 mls/hr DAILY IV 01/18/24 10:00 01/18/24 11:11 100 MLS/HR Linezolid 300 ml @ 150 mls/hr Q12HR IV 01/18/24 10:00 01/18/24 22:31 150 MLS/HR Fat Emulsion Intravenous 50 ml/ Sodium Chloride 60 meq/Potassium Chloride 20 meq/ Magnesium Sulfate 8 meq/ Multivitamins 10 ml/Amino Acids/ Dextrose 1,037 ml @ 43 mls/hr Q24H7M IV 01/18/24 22:00 01/19/24 21:59 01/18/24 21:59 43 MLS/HR Magnesium Sulfate/ Dextrose 100 ml @ 100 mls/hr Q1HR IV 01/18/24 22:00 01/18/24 23:59 01/18/24 22:32 100 MLS/HR Potassium Chloride 100 ml @ 50 mls/hr Q2H IV 01/18/24 21:30 01/19/24 01:29 01/18/24 22:32 50 MLS/HR objective Gen.: Patient lying in bed in medical ICU. Sedated, intubated on mechanical ventilator. Head: Normocephalic, atraumatic. Eyes: PERRLA. Ears: Normal external anatomy. Throat: Endotracheal tube and orogastric tube in place. Neck: Supple, trachea midline. Chest: Transmitted breath sounds bilaterally. Decreased air entry bilaterally. No wheezing. Bibasilar crackles. Cardiovascular: Positive S1, positive S2. Regular rate and rhythm. Abdomen: Positive bowel sounds in all 4 quadrants. Soft, nontender, nondistended. : Davies in place. Normal external genitalia. Rectal: Deferred. Skin: Warm, dry. Intact. Extremities: 2+ radial pulses bilaterally. No lower extremity edema. Neuro: Sedated. laboratory and microbiology Laboratory Tests 01/18/24 16:10 01/18/24 03:17 Test 01/18/24 03:17 Range/Units Serum Glucose 107 H 74-106 mg/dL Assessment/Plan Impression: Acute hypoxic respiratory failure On mechanical ventilator Sepsis due to liver abscess Possible MARCIANO in liver Chronic systolic heart failure CAD s/p PTCA with multiple stents and s/p defibrillator Distributive shock Metastatic colon cancer status post left colectomy Iron deficiency anemia Acute kidney injury due to shock Metabolic acidosis Lactic acidosis Events: On vent support Assist control mode with respiratory rate of 22, tidal volume 350, PEEP of 5, FiO2 of 30%. On pressors for hemodynamic support Levophed 4 mcg/min Titrate to keep mean arterial pressure greater than 65 mmHg. Sedated on Versed. TPN for nutritional support Continue antibiotics. Consult IR for evaluation of abscess drainage. Diurese w/ Bumex Monitor renal function Monitor electrolytes. Supplement as necessary. Monitor potassium Supplement per Nephrology Supplement magnesium Surgery recs appreciated. Protonix for GI prophylaxis Patient is s/p exploratory laparotomy S/p therapeutic bronchoscopy with RML BAL on 01/03 Labs and imaging reviewed. Rest of plan as noted below. Plan: s/p intubation on mechanical ventilator CXR image and report reviewed. Devices in place. Small right-sided pleural effusion with associated atelectasis. ABG reviewed. Compensated Assist control mode with respiratory rate of 22, tidal volume 350, PEEP of 5, FiO2 of 30%. Titrate FIO2 to keep O2 saturation above 92%. VAP bundle Daily ABG and CXR while intubated. Sedate for ventilatory synchrony Pressors as necessary for hemodynamic support Titrate to keep MAP above 65 mmHg/SBP above 90 mmHg. Antibiotics. F/u cultures. Blood cultures no growth after 5 days. Sputum culture notable for Enterobacter cloacae. Monitor renal function Monitor ins/outs Diurese with Lasix to euvolemia Monitor electrolytes. Supplement as necessary. Monitor lactic acid due to lactic acidosis. Nutritional support. Accucheks, ISS. GI/DVT prophylaxis. Condition: Critical Prognosis: Poor given multiple comorbidities. Rest of plan per hospitalist and other consultants. A total of 35 minutes of critical care time was spent reviewing the patient record, examining the patient, making a diagnostic and therapeutic plan, discussing this plan with the medical personnel, following up on diagnostic studies and following the patient for clinical stability excluding any and all procedures. At least 50% of this time was spent in direct, [id number] contact. Thank you Dr. Heath for allowing me to participate in this patient's care. Further recommendations will depend on patient's clinical course. Please do not hesitate to contact me if you have any questions or concerns. This medical document was created using an electronic medical record system with [employer] dictation system. Although this document has been carefully reviewed, there may still be some phonetic and typographical errors. These areas are purely typographical due to imperfections of the software programs, and do not reflect any compromise in the patient's medical care. Dietary Evaluation Review Comments: 1) Advance pt diet when medically feasible to a Cardiac diet 2) Continue current plan of care Expected Outcomes/Goals: 1) F/U in 3-5 days Plan discussed with: Other (WALKER Tavera) Critical Care Time(min): 35 DAYSI DYKES MD Jan 18, 2024 22:59
[2024-01-19] VITALS (109 sets, daily range): BP systolic 88–134; BP diastolic 41–65; PULSE 72–104; RESP 17–28; TEMP 98.2–99.3; O2SAT 94–99
--- NOTE | 2024-01-19 04:35 | DVH ---
CHEST RADIOGRAPH Indication: fu Technique: Single frontal view of the chest was obtained COMPARISON: XY CHEST XRAY 1 VIEW on DOS: 01/18/24, XY CHEST XRAY 1 VIEW on DOS: 01/17/24, XY CHEST XRA Y 1 VIEW on DOS: 01/16/24 FINDINGS: Lines and Tubes: Endotracheal tube, enteric catheter in satisfactory position. Left chest wall AICD. Lungs: Mild congestion Pleura: No effusion. No pneumothorax. Cardiomediastinal contours: Unremarkable Bones: Unremarkable IMPRESSION: Lines and tubes in satisfactory position. No significant interval change.
[2024-01-19 06:41] LABS: Basophils # (auto) 0.1 10 ^3/uL (0-0.2); Lymphocytes # (auto) 0.6 10 ^3/uL (0.4-5.4); Neutrophils # (auto) 14.5 10 ^3/uL (1.6-8.6)
[2024-01-19 06:43] LABS: Basophils % (auto) 0.3 % (0.0-2.0); Eosinophils # (auto) 0.2 10 ^3/uL (0-0.8); Hematocrit 28.1 % (36.0-46.0); Hemoglobin 8.3 g/dL (12.2-16.2); Lymphocytes % (auto) 3.5 % (10.0-50.0); Mean Corpuscular Hemoglobin 27.5 pg (28.0-32.0); Mean Corpuscular Hgb Conc. 29.4 g/dL (32.0-36.0); Mean Corpuscular Volume 93.8 fL (80.0-100.0); Monocytes # (auto) 0.9 10 ^3/uL (0-1.3); Monocytes % (auto) 5.5 % (0.0-12.0); Neutrophils % (auto) 89.7 % (37.0-80.0); Platelet Count (auto) 338 10^3/uL (140-450); White Blood Cell 16.1 10^3/uL (4.4-10.8)
[2024-01-19 07:18] LABS: Base Excess -1.8 mmol/L (-2.0-3.0)
[2024-01-19 07:53] LABS: Anion Gap 11 (5-15)
[2024-01-19 07:59] LABS: BUN/Creatinine Ratio 80.5 (10.0-20.0)
[2024-01-19 08:18] LABS: Alanine Aminotransferase 65 U/L (7-40); Albumin 2.4 g/dL (3.2-4.8); Alkaline Phosphatase 273 U/L (46-116); Aspartate Aminotransferase 195 U/L (13-40); Bilirubin, Total 4.4 mg/dL (0.2-1.0); Blood Urea Nitrogen 62 mg/dL (9-23); Calcium 7.7 mg/dL (8.7-10.4); Carbon Dioxide 23 mmol/L (20-31); Chloride 107 mmol/L (98-107); Glucose 107 mg/dL (74-106); Magnesium 1.9 mg/dL (1.6-2.6); Phosphorus 4.8 mg/dL (2.4-5.1); Potassium 2.6 mmol/L (3.5-5.1); Sodium 141 mmol/L (136-145); Total Protein 5.2 g/dL (5.7-8.2)
[2024-01-19 09:34] LABS: Anisocytosis Slight
[2024-01-19 09:37] LABS: Hypochromia Slight; Platelet Estimate Adequate; Target Cell FEW
--- NOTE | 2024-01-19 10:19 | DVHPN2 ---
Progress Note - Dictate Date Seen: Jan 19, 2024 Medical Necessity Reason Pt with a Central, PICC or Fol: Yes The following are medically ne: PICC Line, Davies Catheter Reason for davies catheter: Strict I&O Subjective remains intubated vital signs Vital Sign Date Time Temp Pulse Resp B/P (MAP) Pulse Ox O2 Delivery O2 Flow Rate FiO2 01/19/24 09:36 96/46 01/19/24 09:34 72 22 96 30 01/19/24 07:45 98.8 209.8 01/19/24 06:00 Mechanical Ventilator+ Total Intake and Output 01/18/24 01/18/24 01/19/24 14:59 22:59 06:59 Intake Total 1154.563 ml 733.189 ml 1009.378 ml Output Total 2030 ml 1775 ml Balance 1154.563 ml -1296.811 ml -765.622 ml medications Current Medications Medications Dose Ordered Sig/Saige Route Start Time Stop Time Status Last Admin Dose Admin Nitroglycerin 0.4 mg Q5MINP PRN SL 12/25/23 16:00 Pantoprazole Sodium 40 mg DAILY IV 12/26/23 10:00 01/19/24 09:36 40 MG Ipratropium [place] 0.5 mg Q6HR NEB 12/27/23 18:00 Cancel Amino Acids 0 ml @ 0 mls/hr PER PHARMACY IV 12/28/23 12:00 Diagnostic Test (Pha) 1 strip Q6HR 12/28/23 18:00 01/19/24 05:46 1 STRIP Insulin Human Regular FOLLOW SLIDING SCALE Q6HR SC 12/28/23 18:00 01/19/24 01:06 2 UNITS Dextrose 50 ml UD IV 12/28/23 13:00 Insulin Glargine 15 units DAILY@1000 SC 12/29/23 12:15 01/12/24 09:56 15 UNITS Sodium Chloride 10 ml QSHIFT@ IV 01/05/24 22:00 01/19/24 09:36 10 ML Enoxaparin Sodium 40 mg DAILY SC 01/13/24 10:00 Hold 01/14/24 12:50 40 MG Metoclopramide HCl 10 mg Q8HR IV 01/12/24 22:00 01/19/24 05:46 10 MG Acetaminophen 1,000 mg Q8HP PRN IV 01/13/24 18:00 01/14/24 03:47 1,000 MG Meropenem 50 ml @ 17 mls/hr Q8H IV 01/14/24 20:00 01/19/24 04:08 17 MLS/HR Lorazepam 0.5 mg Q6HP PRN IV 01/14/24 16:45 Ipratropium [place] 0.5 mg Q6HPRN PRN NEB 01/14/24 18:30 01/19/24 07:47 0.5 MG Fentanyl Citrate 250 ml @ 2.5 mls/hr Q24H IV 01/14/24 19:30 01/19/24 03:52 27.5 MLS/HR Aspirin 81 mg DAILY PO 01/15/24 10:00 Hold Midazolam HCl 50 ml @ 1 mls/hr Q24H IV 01/14/24 20:00 01/19/24 09:36 13 MLS/HR Budesonide 0.5 mg BID NEB 01/15/24 10:00 01/19/24 07:47 0.5 MG Furosemide 100 mg/ Sodium Chloride 110 ml @ 11 mls/hr Q10H IV 01/17/24 13:30 Hold Norepinephrine Bitartrate 32 mg/ Sodium Chloride 250 ml @ 0.938 mls/ hr Q24H IV 01/17/24 13:45 01/18/24 14:44 0.938 MLS/HR Bumetanide 25 mg/ Miscellaneous 100 ml @ 4 mls/hr Q24H IV 01/17/24 15:30 01/18/24 14:41 4 MLS/HR Micafungin Sodium 100 mg/Sodium Chloride 100 ml @ 100 mls/hr DAILY IV 01/18/24 10:00 01/19/24 09:53 100 MLS/HR Linezolid 300 ml @ 150 mls/hr Q12HR IV 01/18/24 10:00 01/18/24 22:31 150 MLS/HR Fat Emulsion Intravenous 50 ml/ Sodium Chloride 60 meq/Potassium Chloride 20 meq/ Magnesium Sulfate 8 meq/ Multivitamins 10 ml/Amino Acids/ Dextrose 1,037 ml @ 43 mls/hr Q24H7M IV 01/18/24 22:00 01/19/24 21:59 01/18/24 21:59 43 MLS/HR Potassium Chloride 100 ml @ 50 mls/hr Q2H IV 01/19/24 10:00 01/19/24 15:59 objective Elderly white female Intubated Not on pressors Bilateral pitting edema Davies catheter laboratory and microbiology Laboratory Tests 01/19/24 07:38 01/19/24 06:00 Test 01/19/24 07:38 Range/Units Serum Glucose 107 H 74-106 mg/dL Assessment/Plan Acute kidney injury due to hemodynamic mediated 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 Acute respiratory failure, intubated on ventilator Septic shock Hyponatremia due excess H2O Transaminitis abdominal abscess Microcytic anemia due to blood loss Iron deficiency Kidney function has normalized Increased urine output; hypervolemic exam goal negative balance diuretics Davies catheter Strict I&Os IV antibiotics surgery on case for abscess and possible procedure tomorrow IV albumin today reduce total input and concentrate fluids Dietary Evaluation Review Comments: 1) Advance pt diet when medically feasible to a Cardiac diet 2) Continue current plan of care Expected Outcomes/Goals: 1) F/U in 3-5 days Plan discussed with: Other Critical Care Time(min): 36 MACI JENSEN MD Jan 19, 2024 10:19
[2024-01-19] MEDS: POTASSIUM CHL 20MEQ/100ML 100 ML IV SCH (10:24)
--- NOTE | 2024-01-19 11:41 | DVHPN2 ---
Progress Note - Dictate Date Seen: Jan 19, 2024 Medical Necessity Reason Pt with a Central, PICC or Fol: Yes The following are medically ne: PICC Line, Davies Catheter Reason for davies catheter: Strict I&O Subjective She is sedated, intubated on mechanical ventilator. Received a critical laboratory result of Vancomycin trough: 31.6 WBC is 16.1 Antibiotic status: Vancomycin HCl 200 ml @ 200 mls/hr - [Started 12/31 - 01/07] stopped 01/17 Linezolid [ started 01/17 Meropenem 50 ml @ 17 mls/hr - [Started - 01/02 - stopped] ; restarted 01/13 Colostomy Bag Drainage: done 01/17 vital signs Vital Sign Date Time Temp Pulse Resp B/P (MAP) Pulse Ox O2 Delivery O2 Flow Rate FiO2 01/19/24 10:56 107/44 01/19/24 10:11 78 97 30 01/19/24 09:34 22 01/19/24 07:45 98.8 209.8 01/19/24 06:00 Mechanical Ventilator+ Total Intake and Output 01/18/24 01/18/24 01/19/24 15:00 23:00 07:00 Intake Total 1136.626 ml 734.126 ml 1008.441 ml Output Total 2030 ml 1775 ml Balance 1136.626 ml -1295.874 ml -766.559 ml medications Current Medications Medications Dose Ordered Sig/Saige Route Start Time Stop Time Status Last Admin Dose Admin Nitroglycerin 0.4 mg Q5MINP PRN SL 12/25/23 16:00 Pantoprazole Sodium 40 mg DAILY IV 12/26/23 10:00 01/19/24 09:36 40 MG Ipratropium [place] 0.5 mg Q6HR NEB 12/27/23 18:00 Cancel Amino Acids 0 ml @ 0 mls/hr PER PHARMACY IV 12/28/23 12:00 Diagnostic Test (Pha) 1 strip Q6HR 12/28/23 18:00 01/19/24 05:46 1 STRIP Insulin Human Regular FOLLOW SLIDING SCALE Q6HR SC 12/28/23 18:00 01/19/24 01:06 2 UNITS Dextrose 50 ml UD IV 12/28/23 13:00 Insulin Glargine 15 units DAILY@1000 SC 12/29/23 12:15 01/12/24 09:56 15 UNITS Sodium Chloride 10 ml QSHIFT@10,22 IV 01/05/24 22:00 01/19/24 09:36 10 ML Enoxaparin Sodium 40 mg DAILY SC 01/13/24 10:00 Hold 01/14/24 12:50 40 MG Metoclopramide HCl 10 mg Q8HR IV 01/12/24 22:00 01/19/24 05:46 10 MG Acetaminophen 1,000 mg Q8HP PRN IV 01/13/24 18:00 01/14/24 03:47 1,000 MG Meropenem 50 ml @ 17 mls/hr Q8H IV 01/14/24 20:00 01/19/24 04:08 17 MLS/HR Lorazepam 0.5 mg Q6HP PRN IV 01/14/24 16:45 Ipratropium [place] 0.5 mg Q6HPRN PRN NEB 01/14/24 18:30 01/19/24 07:47 0.5 MG Fentanyl Citrate 250 ml @ 2.5 mls/hr Q24H IV 01/14/24 19:30 01/19/24 03:52 27.5 MLS/HR Aspirin 81 mg DAILY PO 01/15/24 10:00 Hold Midazolam HCl 50 ml @ 1 mls/hr Q24H IV 01/14/24 20:00 01/19/24 09:36 13 MLS/HR Budesonide 0.5 mg BID NEB 01/15/24 10:00 01/19/24 07:47 0.5 MG Furosemide 100 mg/ Sodium Chloride 110 ml @ 11 mls/hr Q10H IV 01/17/24 13:30 Hold Norepinephrine Bitartrate 32 mg/ Sodium Chloride 250 ml @ 0.938 mls/ hr Q24H IV 01/17/24 13:45 01/18/24 14:44 0.938 MLS/HR Bumetanide 25 mg/ Miscellaneous 100 ml @ 4 mls/hr Q24H IV 01/17/24 15:30 01/19/24 10:56 4 MLS/HR Micafungin Sodium 100 mg/Sodium Chloride 100 ml @ 100 mls/hr DAILY IV 01/18/24 10:00 01/19/24 09:53 100 MLS/HR Linezolid 300 ml @ 150 mls/hr Q12HR IV 01/18/24 10:00 01/19/24 10:47 150 MLS/HR Fat Emulsion Intravenous 50 ml/ Sodium Chloride 60 meq/Potassium Chloride 20 meq/ Magnesium Sulfate 8 meq/ Multivitamins 10 ml/Amino Acids/ Dextrose 1,037 ml @ 43 mls/hr Q24H7M IV 01/18/24 22:00 01/19/24 21:59 01/18/24 21:59 43 MLS/HR Potassium Chloride 100 ml @ 50 mls/hr Q2H IV 01/19/24 10:00 01/19/24 15:59 01/19/24 10:24 50 MLS/HR Fat Emulsion Intravenous 50 ml/ Sodium Chloride 30 meq/Potassium Chloride 40 meq/ Calcium Gluconate 2.3 meq/Magnesium Sulfate 8 meq/ Multivitamins 10 ml/Amino Acids/ Dextrose 1,044.4462 ml @ 43 mls/hr [id number] IV 01/19/24 22:00 01/20/24 21:59 objective General.: Patient lying in bed in medical ICU. Sedated, intubated on mechanical ventilator. Head: Normocephalic, atraumatic. Eyes: PERRLA. Ears: Normal external anatomy. Throat: Endotracheal tube and orogastric tube in place. Neck: Supple, trachea midline. Chest: Transmitted breath sounds bilaterally. Decreased air entry bilaterally. No wheezing. Bibasilar crackles. Cardiovascular: Positive S1, positive S2. Regular rate and rhythm. Abdomen Soft, nontender, nondistended : Davies in place. Normal external genitalia. Skin: Warm, dry. Intact. Extremities: 2+ radial pulses bilaterally. +4 pitting edema. Neuro: Sedated. laboratory and microbiology Laboratory Tests 01/19/24 07:38 01/19/24 06:00 Test 01/19/24 07:38 Range/Units Serum Glucose 107 H 74-106 mg/dL Assessment/Plan Patient is a 64-year-old female presents to the hospital with: # Pelvic abscess; colon leak septic shock vs distributive shock : leucocytosis Ventilator associated Pneumonia : [place] large bowel obstruction s/p colectomy s/p end to end anastomosis 12/24 possible colon cancer with mets ascites: malignant vs post surgical vs infection Liver mets acute hypoxic respiratory failure on mechanical ventilation CHF anasarca Recommendations: Ct abdomen and pelvis shows large collection, concern fo colon leak/ abscess surgery is on board, procedure is scheduled for tomorrow ; IR drainage unable to.. on pressors broad spectrum antibiotics continue Vancomycin was stopped on 01/17; vanco trough critical Started on zyvox 300ml 150 ml/hr due to kidney function. Antifungal micafungin started 01/17 cultures review 01/06: body fluid cultures : few WBC seen , no organisms 01/05, Blood culture: No growth 01/05, Urine culture: No growth 01/04, Aerobic culture: No growth 12/29 : sputum culture notable for Enterobacter cloacae. CT pelvic wo contrast done on 01/06 : CT guided needle/catheter placement into the low pelvic fluid collection with aspiration of 1-2 mL of yellow serous fluid. Chest x-ray reviewed : Single AP portable chest radiograph was obtained : normal overall prognosis is very poor with mets, crit time 35 minutes spent in co-ordination of care Thank you for the consult and for giving an opportunity to take care of this patient. Dietary Evaluation Review Comments: 1) Advance pt diet when medically feasible to a Cardiac diet 2) Continue current plan of care Expected Outcomes/Goals: 1) F/U in 3-5 days Plan discussed with: JASPREET Galvan MD Jan 19, 2024 11:41
[2024-01-19] MEDS: phytonadione 5 MG in SODIUM CHL 0.9% 50 ML IV ONE (12:49)
[2024-01-19 13:56] LABS: INR 1.64 (0.9-1.15); Partial Thromboplastin Time 36.2 SEC (24.5-34.5); Prothrombin Time 16.8 sec (9.3-11.8)
--- NOTE | 2024-01-19 14:45 | DVHPN2 ---
Progress Note Date Seen: Jan 19, 2024 Medical Necessity Reason Pt with a Central, PICC or Fol: Yes The following are medically ne: PICC Line, Davies Catheter Reason for davies catheter: Strict I&O Objective vital signs Vital Sign Date Time Temp Pulse Resp B/P (MAP) Pulse Ox O2 Delivery O2 Flow Rate FiO2 01/19/24 13:28 86 22 117/49 (71) 97 30 01/19/24 07:45 98.8 209.8 01/19/24 06:00 Mechanical Ventilator+ Total Intake and Output 01/18/24 01/18/24 01/19/24 15:00 23:00 07:00 Intake Total 1136.626 ml 734.126 ml 1008.441 ml Output Total 2030 ml 1775 ml Balance 1136.626 ml -1295.874 ml -766.559 ml medications Current Medications Medications Dose Ordered Sig/Saige Route Start Time Stop Time Status Last Admin Dose Admin Nitroglycerin 0.4 mg Q5MINP PRN SL 12/25/23 16:00 Pantoprazole Sodium 40 mg DAILY IV 12/26/23 10:00 01/19/24 09:36 40 MG Ipratropium [place] 0.5 mg Q6HR NEB 12/27/23 18:00 Cancel Amino Acids 0 ml @ 0 mls/hr PER PHARMACY IV 12/28/23 12:00 Diagnostic Test (Pha) 1 strip Q6HR 12/28/23 18:00 01/19/24 12:42 1 STRIP Insulin Human Regular FOLLOW SLIDING SCALE Q6HR SC 12/28/23 18:00 01/19/24 12:45 2 UNITS Dextrose 50 ml UD IV 12/28/23 13:00 Sodium Chloride 10 ml QSHIFT@10,22 IV 01/05/24 22:00 01/19/24 09:36 10 ML Enoxaparin Sodium 40 mg DAILY SC 01/13/24 10:00 Hold 01/14/24 12:50 40 MG Acetaminophen 1,000 mg Q8HP PRN IV 01/13/24 18:00 01/14/24 03:47 1,000 MG Meropenem 50 ml @ 17 mls/hr Q8H IV 01/14/24 20:00 01/19/24 12:42 17 MLS/HR Lorazepam 0.5 mg Q6HP PRN IV 01/14/24 16:45 Ipratropium [place] 0.5 mg Q6HPRN PRN NEB 01/14/24 18:30 01/19/24 07:47 0.5 MG Fentanyl Citrate 250 ml @ 2.5 mls/hr Q24H IV 01/14/24 19:30 01/19/24 12:55 27.5 MLS/HR Aspirin 81 mg DAILY PO 01/15/24 10:00 Hold Midazolam HCl 50 ml @ 1 mls/hr Q24H IV 01/14/24 20:00 01/19/24 13:14 13 MLS/HR Furosemide 100 mg/ Sodium Chloride 110 ml @ 11 mls/hr Q10H IV 01/17/24 13:30 Hold Norepinephrine Bitartrate 32 mg/ Sodium Chloride 250 ml @ 0.938 mls/ hr Q24H IV 01/17/24 13:45 01/18/24 14:44 0.938 MLS/HR Bumetanide 25 mg/ Miscellaneous 100 ml @ 4 mls/hr Q24H IV 01/17/24 15:30 01/19/24 10:56 4 MLS/HR Micafungin Sodium 100 mg/Sodium Chloride 100 ml @ 100 mls/hr DAILY IV 01/18/24 10:00 01/19/24 09:53 100 MLS/HR Linezolid 300 ml @ 150 mls/hr Q12HR IV 01/18/24 10:00 01/19/24 10:47 150 MLS/HR Fat Emulsion Intravenous 50 ml/ Sodium Chloride 60 meq/Potassium Chloride 20 meq/ Magnesium Sulfate 8 meq/ Multivitamins 10 ml/Amino Acids/ Dextrose 1,037 ml @ 43 mls/hr Q24H7M IV 01/18/24 22:00 01/19/24 21:59 01/18/24 21:59 43 MLS/HR Potassium Chloride 100 ml @ 50 mls/hr Q2H IV 01/19/24 10:00 01/19/24 15:59 01/19/24 14:39 50 MLS/HR Fat Emulsion Intravenous 50 ml/ Sodium Chloride 30 meq/Potassium Chloride 40 meq/ Calcium Gluconate 2.3 meq/Magnesium Sulfate 8 meq/ Multivitamins 10 ml/Amino Acids/ Dextrose 1,044.4462 ml @ 43 mls/hr [id number] IV 01/19/24 22:00 01/20/24 21:59 laboratory and microbiology Laboratory Tests 01/19/24 07:38 01/19/24 06:00 Test 01/19/24 07:38 Range/Units Serum Glucose 107 H 74-106 mg/dL Problem List/Assessment/Plan Problem List/Assessment/Plan 01/06/[address] Aditi BUCKLEY, ABDOMEN APPEARS TO BE TENDER IN THE LEFT LOWER QUADRANT, WOUND IS CLEAN AND WELL APPROXIMATED, DRAINAGE FROM LOWER PORTION OF MIDLINE WOUND.AWAITING ir intervention 01/07/24 essentially unchanged, continues hypotensive with leukocytosis, abdomen "full", no BM or flatus reported, spoke to interventional radiologist, he will proceed with drainage of pelvic fluid collection via transgluteal approach 01/08/24 slightly improved, discussed pelvic fluid drainage with radiologist,abdomen soft, non distended, continue current treatments 01/09/24 slightly improved, abdomen less tense, wound clean ,drainage clear, good urine output, less pressors requirement 01/10/24 wbc slightly better, wound ok, abdomen soft and non distended, no BM, will add reglan, once she passes flatus NG tube can be DC'd 01/11/24 'S QUESTIONS ANSWERED, SHE CONTINUES UNCHANGED, WOUND CLEAN ,ABDOMEN NON DISTENDED 01/12/24 abdomen non distended, appears non tender()pt awakens), wound clean and well approximated, undergoing CPAP trial 01/14/24 abdomen benign, sepsis persists, will get gastrografin small bowel series in hope of starting po intake 01/15/24 patient aspirated yesterday and was re intubated, there is what appears a large fluid collection/abscess in the pelvis which could be due to an anastomotic colon leak, I thoroughly explained to (patient sedated) that if radiologist not available to do a ct guided aspiration, she would need an operation to drain the pelvic abscess and could end up with a colostomy. I showed the patient's CT scan images to the and explained that the liver is essentially replaced with what appears to be malignant deposits. I told him to "think hard about what would his want" if she were able to make a decision for her self in this situation. 01/17/24 apparently no radiologist is on premisses till Friday, not at bedside this morning, patient essentially clinically unchanged, will wait to hear from patient's about family's wishes 01/19/24 radiologist not able to do percutaneous drainage patient continues to be septic, will proceed with operation Friday . operation, colostomy etc, previously explained to patient's who left a message with patient's nurse that he wished tyo proceed with the operation even though I explained to him that the patient will ultimately probably of her cancer Plan discussed with: Patient Dietary Evaluation Review Comments: 1) Advance pt diet when medically feasible to a Cardiac diet 2) Continue current plan of care Expected Outcomes/Goals: 1) F/U in 3-5 days ASPEN EUBANKS MD Jan 19, 2024 14:45
--- NOTE | 2024-01-19 17:52 | DVHPNRES ---
Progress Note Date Seen: Jan 19, 2024 Resident Creating Document: NICHOLE CANCINO RESIDENT Medical Necessity Reason Pt with a Central, PICC or Fol: Yes The following are medically ne: PICC Line, Davies Catheter Reason for davies catheter: Strict I&O Subjective Review of Systems A 63-year-old female patient with PMHx of systolic heart failure status post [employer] ICD placement -last EF 35% in September2023, CAD status post 4 RYAN in January 2018 , dyslipidemia, recurrent UTIs and pyelonephritis for the past 4 months, hypertension and internal hemorrhoids presented to the ER with a chief complaint of suprapubic abdominal pain and constipation. Patient recently visited [facility] in August this year with her when she went to the [place] barefoot and had bite dong all over the body, following which she has been getting recurrent UTIs and pyelonephritis starting September, also reports dry cough since the visit. She reports that the abdominal pain started 12/10 and is associated with tenesmus, she only passes small pellet-like stools associated with mucus and a lot of flatus. Also reports history of internal hemorrhoids and that she is experiencing bright red bleed per rectum for the past few days. She denies lifetime history of colonoscopy/endoscopy. Reports nausea, chills on and off but no fever. Denies lifetime history of STI, is monogamous with the . Her did not get any symptoms after the trip. PCP Jodie Rico Past surgical history; Partial hysterectomy Family history: Unremarkable Social history: Lives with , denies smoking, drank heavily during the vacation - quit since, denies illicit drug Patient seen and examined at bedside. Abdomen and pelvis CT which evidence pelvic abscess. Surgery consult done and suggest abscess drainage. Possible abscess drainage tomorrow by the surgeon Objective vital signs Vital Sign Date Time Temp Pulse Resp B/P (MAP) Pulse Ox O2 Delivery O2 Flow Rate FiO2 01/19/24 16:30 98.4 87 26 100/49 (66) 96 209.1 01/19/24 16:02 30 01/19/24 14:00 Mechanical Ventilator+ Total Intake and Output 01/18/24 01/18/24 01/19/24 15:00 23:00 07:00 Intake Total 1136.626 ml 734.126 ml 1008.441 ml Output Total 2030 ml 1775 ml Balance 1136.626 ml -1295.874 ml -766.559 ml medications Current Medications Medications Dose Ordered Sig/Saige Route Start Time Stop Time Status Last Admin Dose Admin Nitroglycerin 0.4 mg Q5MINP PRN SL 12/25/23 16:00 Pantoprazole Sodium 40 mg DAILY IV 12/26/23 10:00 01/19/24 09:36 40 MG Ipratropium [place] 0.5 mg Q6HR NEB 12/27/23 18:00 Cancel Amino Acids 0 ml @ 0 mls/hr PER PHARMACY IV 12/28/23 12:00 Diagnostic Test (Pha) 1 strip Q6HR 12/28/23 18:00 01/19/24 12:42 1 STRIP Insulin Human Regular FOLLOW SLIDING SCALE Q6HR SC 12/28/23 18:00 01/19/24 12:45 2 UNITS Dextrose 50 ml UD IV 12/28/23 13:00 Sodium Chloride 10 ml QSHIFT@10,22 IV 01/05/24 22:00 01/19/24 09:36 10 ML Enoxaparin Sodium 40 mg DAILY SC 01/13/24 10:00 Hold 01/14/24 12:50 40 MG Acetaminophen 1,000 mg Q8HP PRN IV 01/13/24 18:00 01/14/24 03:47 1,000 MG Meropenem 50 ml @ 17 mls/hr Q8H IV 01/14/24 20:00 01/19/24 12:42 17 MLS/HR Lorazepam 0.5 mg Q6HP PRN IV 01/14/24 16:45 Ipratropium [place] 0.5 mg Q6HPRN PRN NEB 01/14/24 18:30 01/19/24 07:47 0.5 MG Fentanyl Citrate 250 ml @ 2.5 mls/hr Q24H IV 01/14/24 19:30 01/19/24 12:55 27.5 MLS/HR Aspirin 81 mg DAILY PO 01/15/24 10:00 Hold Midazolam HCl 50 ml @ 1 mls/hr Q24H IV 01/14/24 20:00 01/19/24 13:14 13 MLS/HR Furosemide 100 mg/ Sodium Chloride 110 ml @ 11 mls/hr Q10H IV 01/17/24 13:30 Hold Norepinephrine Bitartrate 32 mg/ Sodium Chloride 250 ml @ 0.938 mls/ hr Q24H IV 01/17/24 13:45 01/18/24 14:44 0.938 MLS/HR Bumetanide 25 mg/ Miscellaneous 100 ml @ 4 mls/hr Q24H IV 01/17/24 15:30 01/19/24 10:56 4 MLS/HR Micafungin Sodium 100 mg/Sodium Chloride 100 ml @ 100 mls/hr DAILY IV 01/18/24 10:00 01/19/24 09:53 100 MLS/HR Linezolid 300 ml @ 150 mls/hr Q12HR IV 01/18/24 10:00 01/19/24 10:47 150 MLS/HR Fat Emulsion Intravenous 50 ml/ Sodium Chloride 60 meq/Potassium Chloride 20 meq/ Magnesium Sulfate 8 meq/ Multivitamins 10 ml/Amino Acids/ Dextrose 1,037 ml @ 43 mls/hr Q24H7M IV 01/18/24 22:00 01/19/24 21:59 01/18/24 21:59 43 MLS/HR Fat Emulsion Intravenous 50 ml/ Sodium Chloride 30 meq/Potassium Chloride 40 meq/ Calcium Gluconate 2.3 meq/Magnesium Sulfate 8 meq/ Multivitamins 10 ml/Amino Acids/ Dextrose 1,044.4462 ml @ 43 mls/hr [id number] IV 01/19/24 22:00 01/20/24 21:59 Examination Gen. Sedated, intubated on mechanical ventilator. Head: Normocephalic, atraumatic. Eyes: PERRLA. Ears: Normal external anatomy. Throat: Endotracheal tube and orogastric tube in place. Neck: Supple, trachea midline. Chest: Transmitted breath sounds bilaterally. Decreased air entry bilaterally. No wheezing. Bibasilar crackles. Cardiovascular: Positive S1, positive S2. Regular rate and rhythm. Abdomen: Positive bowel sounds in all 4 quadrants. Soft, nontender, nondistended. : Davies in place. Normal external genitalia. Skin: Warm, dry. Intact. Extremities: 2+ radial pulses bilaterally. No lower extremity edema. Neuro: Sedated. laboratory and microbiology Laboratory Tests 01/19/24 07:38 01/19/24 06:00 Test 01/19/24 07:38 Range/Units Serum Glucose 107 H 74-106 mg/dL Microbiology Date/Time Source Procedure Growth Status 01/14/24 19:03 Trachea Gram Stain - Final Complete 01/14/24 19:03 Respiratory Culture - Final Yeast, not Ayse albicans Complete 01/14/24 10:28 Voided Urine Urine Culture - Final Complete 01/14/24 10:25 Blood Blood Culture - Final NO GROWTH AFTER 5 DAYS OF INCUBATION. Complete 01/12/24 16:13 Sputum Gram Stain - Final Complete 01/12/24 16:13 Respiratory Culture - Final Enterobacter cloacae Complete 01/07/24 15:20 Aspirate Gram Stain - Final Complete 01/07/24 15:20 Aspirate Body Fluid Culture - Final Complete 12/18/23 13:03 Stool Stool Culture - Final Complete 12/18/23 13:03 Stool Shiga Toxin I & II - Final Complete Problem List/Assessment/Plan Problem List/Assessment/Plan Neurology: Metabolic encephalopathy probably secondary to sepsis Currently patient is intubated Currently under empiric IV antibiotic (meropenem and vancomycin) Completed multiple head CTs with no acute intracranial pathology Cardiovascular Acute on chronic systolic congestive heart failure (HFrEF, LVEF 35%)-status post ICD placement Indicated albumin 25% t.i.d. x3 followed by IV furosemide 40 mg Completed point of care ultrasound at bedside: Evidence fluid overload with pulmonary comments. Echocardiogram during this admission: Severely reduced LVEF, 35%, anterior anteroapical wall akinesia, moderately reduced RV systolic function, rest of study within normal limits. History of coronary artery disease with cardiac arrest (VFib/V-tach) - status post PCI with stent placements Currently aspirin on hold (INR of 2). Completed stress test which showed no ischemia, multiple territories of infarcts NSTEMI type 2 Secondary to septic shock. Stress test negative for ischemia Respiratory Acute respiratory failure currently is intubated on 01/14/2024 (VCV VT 450, RR 22, peep five, FiO2 30%) Completed new bronchoscopy 01/14/2024 since samples for culture and pathology. Aspiration pneumonia Secondary to Gastrografin study. Required endotracheal intubation on 01/14/2024 and bronchoscopy, pending culture and pathology. Multiple pneumonia secondary to Enterobacter cloacae Completed multiple courses of antibiotics Gastrointestinal Bowel obstruction secondary to sigmoid adenocarcinoma with hepatic metastasis - status post colectomy with terminal-terminal anastomosis Completed colectomy with terminal terminal anastomosis on 12/25/2023, with previous cardiological clearance. Patient on TPN due to presence of pelvic abscess. mechanical engineering specialist on board: Suggested Gastrografin study to evaluate bowel motility Pelvic abscess - status post failed percutaneous drainage Completed new abdomen and pelvis CT with contrast which shows abscess and pelvic area. Interventional radiologist consulted suggesting new drainage on Friday01/19/2024 Hepatomegaly secondary to liver metastasis due to sigmoid adenocarcinoma Monitor CMP and coagulation Transaminitis Secondary to above Genitourinary/Nephrology History of multiple UTIs Last urine culture with no evidence of bacterial growth Metabolic Hypernatremia -Resolved Infectious Disease Septic shock probably secondary to aspiration pneumonia versus pelvic abscess - resolved Required maximum dose of vasopressors (four IV vasopressors). Currently with no IV vasopressors Completed multiple courses of antibiotic (febrile since tazobactam for two days, ceftriaxone for one day, vancomycin previously for 12 days, meropenem previously four 12 days) Multiple cultures completed, only positive 3 times sputum for Enterobacter cloacae (pelvic fluid, blood, and urine culture negative) Id specialist on board Persistent sepsis probably secondary to pelvic abscess Completed new abdomen and pelvis CT with contrast which evidence abscess and pelvic area. Interventional radiologist consulted suggesting new drainage on Friday01/19/2024 Currently under empiric IV antibiotic (vancomycin and meropenem) Hematology Persistent leukocytosis Probably secondary to pelvic abscess Coagulopathy secondary to sepsis INR on 01/14/2024 approximately two. We will hold enoxaparin and aspirin Nutrition: TPN, no enteral feeding until bowel motility evaluated (has to be cleared by intervention specialist) Prophylaxis for PUD and DVT: Currently on pantoprazole and SCDs Lines Left arm PICC line placed on 01/07/2024 New Davies catheter 01/14/2024 ET tube 01/14/2024 Drips Versed Fentanyl NE Abdomen and pelvis CT which evidence pelvic abscess. Surgery consult done and suggest abscess drainage. Possible abscess drainage tomorrow by the surgeon Critical Care time spent 87 minutes including, patient care, chart review and updating family, excluding procedure. code status : Full Code Case discussed with Dr Ojeda Plan discussed with: Spouse, Other (RN) Dietary Evaluation Review Comments: 1) Advance pt diet when medically feasible to a Cardiac diet 2) Continue current plan of care Expected Outcomes/Goals: 1) F/U in 3-5 days Date of Service: Jan 19, 2024 Billing Provider: KATERINA OJEDA MD Common Visit Codes: 81868-UDQARMFR CARE 30-74 MIN, 23186-RLJGMJCF CARE-EACH +30MIN NICHOLE CANCINO RESIDENT Jan 19, 2024 17:52 KATERINA OJEDA MD Jan 20, 2024 11:05
[2024-01-19] MEDS: TPN PER PHARMACY IV NR (22:00)
[2024-01-20] VITALS (99 sets, daily range): BP systolic 94–125; BP diastolic 40–71; PULSE 78–107; RESP 17–29; TEMP 96.1–100.4; O2SAT 92–100
[2024-01-20 04:13] LABS: Eosinophils # (auto) 0.2 10 ^3/uL (0-0.8); Hemoglobin 9.5 g/dL (12.2-16.2); Nucleated Red Blood Cells % 0.1 %
[2024-01-20 04:28] LABS: Basophils # (auto) 0.1 10 ^3/uL (0-0.2); Basophils % (auto) 0.5 % (0.0-2.0); Eosinophils % (auto) 1.3 % (0.0-7.0); Hematocrit 30.2 % (36.0-46.0); Lymphocytes # (auto) 0.8 10 ^3/uL (0.4-5.4); Lymphocytes % (auto) 4.5 % (10.0-50.0); Mean Corpuscular Hemoglobin 25.3 pg (28.0-32.0); Mean Corpuscular Hgb Conc. 31.3 g/dL (32.0-36.0); Mean Corpuscular Volume 80.8 fL (80.0-100.0); Monocytes # (auto) 1.5 10 ^3/uL (0-1.3); Monocytes % (auto) 7.9 % (0.0-12.0); Neutrophils # (auto) 15.8 10 ^3/uL (1.6-8.6); Neutrophils % (auto) 85.8 % (37.0-80.0); Platelet Count (auto) 427 10^3/uL (140-450); Red Blood Cells 3.74 10^6/uL (4.0-5.20); White Blood Cell 18.4 10^3/uL (4.4-10.8)
[2024-01-20 04:32] LABS: INR 1.53 (0.9-1.15); Partial Thromboplastin Time 39.7 SEC (24.5-34.5); Prothrombin Time 15.7 sec (9.3-11.8)
--- NOTE | 2024-01-20 04:32 | DVH ---
CHEST RADIOGRAPH Indication: ET intubation Technique: Single frontal view of the chest was obtained COMPARISON: XY CHEST PORTABLE on DOS: 01/19/24, XY CHEST XRAY 1 VIEW on DOS: 01/18/24, XY CHEST XRAY 1 VIEW on DOS: 01/17/24, XY CHEST PORTABLE on DOS: 01/19/24 FINDINGS: Lines and Tubes: Endotracheal tube, enteric catheter in satisfactory position. Left chest wall AICD. Lungs: Mild congestion Pleura: No effusion. No pneumothorax. Cardiomediastinal contours: Unremarkable Bones: Unremarkable IMPRESSION: Lines and tubes in satisfactory position. No significant interval change.
[2024-01-20 04:34] LABS: Red Cell Distribution Width 26.4 % (11.8-14.3)
[2024-01-20 04:35] LABS: Alanine Aminotransferase 66 U/L (7-40); Albumin 2.7 g/dL (3.2-4.8); Alkaline Phosphatase 322 U/L (46-116); Anion Gap 15 (5-15); Aspartate Aminotransferase 202 U/L (13-40); BUN/Creatinine Ratio 79.1 (10.0-20.0); Bilirubin, Total 5.4 mg/dL (0.2-1.0); Blood Urea Nitrogen 53 mg/dL (9-23); Calcium 8.5 mg/dL (8.7-10.4); Carbon Dioxide 23 mmol/L (20-31); Chloride 106 mmol/L (98-107); Glucose 138 mg/dL (74-106); Magnesium 1.9 mg/dL (1.6-2.6); Phosphorus 4.4 mg/dL (2.4-5.1); Potassium 2.6 mmol/L (3.5-5.1); Sodium 144 mmol/L (136-145); Total Protein 5.8 g/dL (5.7-8.2)
[2024-01-20] MEDS: POTASSIUM CHL 20MEQ/100ML 100 ML IV SCH (06:37)
[2024-01-20 08:56] LABS: Base Excess -0.5 mmol/L (-2.0-3.0)
--- NOTE | 2024-01-20 09:52 | DVHPN2 ---
Progress Note - Dictate Date Seen: Jan 20, 2024 Medical Necessity Reason Pt with a Central, PICC or Fol: Yes The following are medically ne: PICC Line, Davies Catheter Reason for davies catheter: Strict I&O Subjective She is sedated, intubated on mechanical ventilator. WBC is 18.4; trending up Abdomen and pelvis CT which evidence pelvic abscess. Surgery consult done and suggest abscess drainage. Possible abscess drainage today by the surgeon. Antibiotic status: Vancomycin HCl 200 ml @ 200 mls/hr - [Started 12/31 - 01/15] Linezolid [ started 01/17 - Ongoing] Meropenem 50 ml @ 17 mls/hr - [Started - 01/02 - stopped] ; restarted 01/13 - Ongoing vital signs Vital Sign Date Time Temp Pulse Resp B/P (MAP) Pulse Ox O2 Delivery O2 Flow Rate FiO2 01/20/24 08:39 121/57 01/20/24 08:10 99 27 98 30 01/20/24 06:45 100.0 212.0 01/20/24 06:00 Mechanical Ventilator+ Total Intake and Output 01/19/24 01/19/24 01/20/24 15:00 23:00 07:00 Intake Total 713.126 ml 1049.000 ml 693.625 ml Output Total 2300 ml 2550 ml Balance 713.126 ml -1251.000 ml -1856.375 ml medications Current Medications Medications Dose Ordered Sig/Saige Route Start Time Stop Time Status Last Admin Dose Admin Nitroglycerin 0.4 mg Q5MINP PRN SL 12/25/23 16:00 Pantoprazole Sodium 40 mg DAILY IV 12/26/23 10:00 01/19/24 09:36 40 MG Ipratropium [place] 0.5 mg Q6HR NEB 12/27/23 18:00 Cancel Amino Acids 0 ml @ 0 mls/hr PER PHARMACY IV 12/28/23 12:00 Diagnostic Test (Pha) 1 strip Q6HR 12/28/23 18:00 01/20/24 05:50 1 STRIP Insulin Human Regular FOLLOW SLIDING SCALE Q6HR SC 12/28/23 18:00 01/19/24 12:45 2 UNITS Dextrose 50 ml UD IV 12/28/23 13:00 Sodium Chloride 10 ml QSHIFT@,22 IV 01/05/24 22:00 01/19/24 21:58 10 ML Enoxaparin Sodium 40 mg DAILY SC 01/13/24 10:00 Hold 01/14/24 12:50 40 MG Acetaminophen 1,000 mg Q8HP PRN IV 01/13/24 18:00 01/14/24 03:47 1,000 MG Meropenem 50 ml @ 17 mls/hr Q8H IV 01/14/24 20:00 01/20/24 03:37 17 MLS/HR Lorazepam 0.5 mg Q6HP PRN IV 01/14/24 16:45 Ipratropium [place] 0.5 mg Q6HPRN PRN NEB 01/14/24 18:30 01/19/24 07:47 0.5 MG Fentanyl Citrate 250 ml @ 2.5 mls/hr Q24H IV 01/14/24 19:30 01/20/24 08:39 27.5 MLS/HR Aspirin 81 mg DAILY PO 01/15/24 10:00 Hold Midazolam HCl 50 ml @ 1 mls/hr Q24H IV 01/14/24 20:00 01/20/24 04:55 13 MLS/HR Furosemide 100 mg/ Sodium Chloride 110 ml @ 11 mls/hr Q10H IV 01/17/24 13:30 Hold Norepinephrine Bitartrate 32 mg/ Sodium Chloride 250 ml @ 0.938 mls/ hr Q24H IV 01/17/24 13:45 01/20/24 07:58 1.875 MLS/HR Bumetanide 25 mg/ Miscellaneous 100 ml @ 4 mls/hr Q24H IV 01/17/24 15:30 01/19/24 10:56 4 MLS/HR Micafungin Sodium 100 mg/Sodium Chloride 100 ml @ 100 mls/hr DAILY IV 01/18/24 10:00 01/19/24 09:53 100 MLS/HR Linezolid 300 ml @ 150 mls/hr Q12HR IV 01/18/24 10:00 01/19/24 21:57 150 MLS/HR Fat Emulsion Intravenous 50 ml/ Sodium Chloride 30 meq/Potassium Chloride 40 meq/ Calcium Gluconate 2.3 meq/Magnesium Sulfate 8 meq/ Multivitamins 10 ml/Amino Acids/ Dextrose 1,044.4462 ml @ 43 mls/hr [id number] IV 01/19/24 22:00 01/20/24 21:59 01/19/24 22:00 43 MLS/HR Potassium Chloride 100 ml @ 50 mls/hr Q2H IV 01/20/24 06:30 01/20/24 14:29 01/20/24 08:32 50 MLS/HR objective General.: Patient lying in bed in medical ICU. Sedated, intubated on mechanical ventilator. Head: Normocephalic, atraumatic. Eyes: PERRLA. Ears: Normal external anatomy. Throat: Endotracheal tube and orogastric tube in place. Neck: Supple, trachea midline. Chest: Transmitted breath sounds bilaterally. Decreased air entry bilaterally. No wheezing. Bibasilar crackles. Cardiovascular: Positive S1, positive S2. Regular rate and rhythm. Abdomen: Positive bowel sounds in all 4 quadrants. Soft, nontender, nondistended. : Davies in place. Normal external genitalia. Rectal: Deferred. Skin: Warm, dry. Intact. Extremities: 2+ radial pulses bilaterally. +4 pitting edema. Neuro: Sedated. laboratory and microbiology Laboratory Tests 01/20/24 03:50 Test 01/20/24 03:50 Range/Units Serum Glucose 138 H 74-106 mg/dL Assessment/Plan Patient is a 64-year-old female presents to the hospital with: Pelvic abscess; colon leak septic shock vs distributive shock : leucocytosis Ventilator associated Pneumonia : [place] large bowel obstruction s/p colectomy s/p end to end anastomosis 12/24 possible colon cancer with mets ascites: malignant vs post surgical vs infection Liver mets acute hypoxic respiratory failure on mechanical ventilation CHF anasarca Recommendations: Ct abdomen and pelvis shows large collection, concern fo colon leak/ abscess surgery is on board, surgery is scheduled today on pressors broad spectrum antibiotics continue Vancomycin was stopped on 01/17; high trough on Zyvox 300ml 150 ml/hr due to kidney function. on micafungin since01/17 01/19, Chest x-ray reviewed : Lines and tubes in satisfactory position. No significant interval change. cultures review 01/06: body fluid cultures : few WBC seen , no organisms 01/05, Blood culture: No growth 01/05, Urine culture: No growth 01/04, Aerobic culture: No growth 12/29 : sputum culture notable for Enterobacter cloacae. CT pelvic wo contrast done on 01/06 : CT guided needle/catheter placement into the low pelvic fluid collection with aspiration of 1-2 mL of yellow serous fluid. overall prognosis is very poor with mets, crit time 35 minutes spent in co-ordination of care Thank you for the consult and for giving an opportunity to take care of this patient. Dietary Evaluation Review Comments: 1) Advance pt diet when medically feasible to a Cardiac diet 2) Continue current plan of care Expected Outcomes/Goals: 1) F/U in 3-5 days Plan discussed with: JASPREET Galvan MD Jan 20, 2024 09:52
[2024-01-20] MEDS: MAGNESIUM SULFATE 1GM/100ML 100 ML IV ONE (12:36)
--- NOTE | 2024-01-20 13:22 | DVHPNRES ---
Progress Note Date Seen: Jan 20, 2024 Resident Creating Document: NICHOLE CANCINO RESIDENT Medical Necessity Reason Pt with a Central, PICC or Fol: Yes The following are medically ne: PICC Line, Davies Catheter Reason for davies catheter: Strict I&O Subjective Review of Systems A 63-year-old female patient with PMHx of systolic heart failure status post Med[employer] ICD placement -last EF 35% in September2023, CAD status post 4 RYAN in January 2018 , dyslipidemia, recurrent UTIs and pyelonephritis for the past 4 months, hypertension and internal hemorrhoids presented to the ER with a chief complaint of suprapubic abdominal pain and constipation. Patient recently visited [facility] in August this year with her when she went to the [place] barefoot and had bite dong all over the body, following which she has been getting recurrent UTIs and pyelonephritis starting September, also reports dry cough since the visit. She reports that the abdominal pain started 12/10 and is associated with tenesmus, she only passes small pellet-like stools associated with mucus and a lot of flatus. Also reports history of internal hemorrhoids and that she is experiencing bright red bleed per rectum for the past few days. She denies lifetime history of colonoscopy/endoscopy. Reports nausea, chills on and off but no fever. Denies lifetime history of STI, is monogamous with the . Her did not get any symptoms after the trip. PCP Jodie Rico Past surgical history; Partial hysterectomy Family history: Unremarkable Social history: Lives with , denies smoking, drank heavily during the vacation - quit since, denies illicit drug Patient seen and examined at bedside. Abdomen and pelvis CT which evidence pelvic abscess. Surgery consult done and suggest abscess drainage. abscess drainage today afternoon by the surgeon. Objective vital signs Vital Sign Date Time Temp Pulse Resp B/P (MAP) Pulse Ox O2 Delivery O2 Flow Rate FiO2 01/20/24 11:58 100 27 117/71 (86) 98 30 01/20/24 11:15 99.7 211.5 01/20/24 10:00 Mechanical Ventilator+ Total Intake and Output 01/19/24 01/19/24 01/20/24 15:00 23:00 07:00 Intake Total 713.126 ml 1049.000 ml 783.000 ml Output Total 2300 ml 2550 ml Balance 713.126 ml -1251.000 ml -1767.000 ml medications Current Medications Medications Dose Ordered Sig/Saige Route Start Time Stop Time Status Last Admin Dose Admin Nitroglycerin 0.4 mg Q5MINP PRN SL 12/25/23 16:00 Pantoprazole Sodium 40 mg DAILY IV 12/26/23 10:00 01/20/24 09:18 40 MG Ipratropium [place] 0.5 mg Q6HR NEB 12/27/23 18:00 Cancel Amino Acids 0 ml @ 0 mls/hr PER PHARMACY IV 12/28/23 12:00 Diagnostic Test (Pha) 1 strip Q6HR 12/28/23 18:00 01/20/24 12:19 1 STRIP Insulin Human Regular FOLLOW SLIDING SCALE Q6HR SC 12/28/23 18:00 01/20/24 12:22 4 UNITS Dextrose 50 ml UD IV 12/28/23 13:00 Sodium Chloride 10 ml QSHIFT@ IV 01/05/24 22:00 01/20/24 09:18 10 ML Enoxaparin Sodium 40 mg DAILY SC 01/13/24 10:00 Hold 01/14/24 12:50 40 MG Acetaminophen 1,000 mg Q8HP PRN IV 01/13/24 18:00 01/14/24 03:47 1,000 MG Meropenem 50 ml @ 17 mls/hr Q8H IV 01/14/24 20:00 01/20/24 03:37 17 MLS/HR Lorazepam 0.5 mg Q6HP PRN IV 01/14/24 16:45 Ipratropium [place] 0.5 mg Q6HPRN PRN NEB 01/14/24 18:30 01/19/24 07:47 0.5 MG Fentanyl Citrate 250 ml @ 2.5 mls/hr Q24H IV 01/14/24 19:30 01/20/24 08:39 27.5 MLS/HR Aspirin 81 mg DAILY PO 01/15/24 10:00 Hold Midazolam HCl 50 ml @ 1 mls/hr Q24H IV 01/14/24 20:00 01/20/24 11:05 13 MLS/HR Furosemide 100 mg/ Sodium Chloride 110 ml @ 11 mls/hr Q10H IV 01/17/24 13:30 Hold Norepinephrine Bitartrate 32 mg/ Sodium Chloride 250 ml @ 0.938 mls/ hr Q24H IV 01/17/24 13:45 01/20/24 07:58 1.875 MLS/HR Bumetanide 25 mg/ Miscellaneous 100 ml @ 4 mls/hr Q24H IV 01/17/24 15:30 01/19/24 10:56 4 MLS/HR Micafungin Sodium 100 mg/Sodium Chloride 100 ml @ 100 mls/hr DAILY IV 01/18/24 10:00 01/20/24 09:29 100 MLS/HR Linezolid 300 ml @ 150 mls/hr Q12HR IV 01/18/24 10:00 01/20/24 10:41 150 MLS/HR Fat Emulsion Intravenous 50 ml/ Sodium Chloride 30 meq/Potassium Chloride 40 meq/ Calcium Gluconate 2.3 meq/Magnesium Sulfate 8 meq/ Multivitamins 10 ml/Amino Acids/ Dextrose 1,044.4462 ml @ 43 mls/hr [id number] IV 01/19/24 22:00 01/20/24 21:59 01/19/24 22:00 43 MLS/HR Potassium Chloride 100 ml @ 50 mls/hr Q2H IV 01/20/24 06:30 01/20/24 14:29 01/20/24 10:41 50 MLS/HR Fat Emulsion Intravenous 50 ml/ Potassium Chloride 70 meq/ Potassium Acetate 10 meq/Magnesium Sulfate 8 meq/ Multivitamins 10 ml/Amino Acids/ Dextrose 1,052 ml @ 43 mls/hr [id number] IV 01/20/24 22:00 01/21/24 21:59 Examination Gen. Sedated, intubated on mechanical ventilator. Head: Normocephalic, atraumatic. Eyes: PERRLA. Ears: Normal external anatomy. Throat: Endotracheal tube and orogastric tube in place. Neck: Supple, trachea midline. Chest: Transmitted breath sounds bilaterally. Decreased air entry bilaterally. No wheezing. Bibasilar crackles. Cardiovascular: Positive S1, positive S2. Regular rate and rhythm. Abdomen: Positive bowel sounds in all 4 quadrants. Soft, nontender, nondistended. : Davies in place. Normal external genitalia. Skin: Warm, dry. Intact. Extremities: 2+ radial pulses bilaterally. No lower extremity edema. Neuro: Sedated. laboratory and microbiology Laboratory Tests 01/20/24 03:50 Test 01/20/24 03:50 Range/Units Serum Glucose 138 H 74-106 mg/dL Microbiology Date/Time Source Procedure Growth Status 01/14/24 19:03 Trachea Gram Stain - Final Complete 01/14/24 19:03 Respiratory Culture - Final Yeast, not Ayse albicans Complete 01/14/24 10:28 Voided Urine Urine Culture - Final Complete 01/14/24 10:25 Blood Blood Culture - Final NO GROWTH AFTER 5 DAYS OF INCUBATION. Complete 01/12/24 16:13 Sputum Gram Stain - Final Complete 01/12/24 16:13 Respiratory Culture - Final Enterobacter cloacae Complete 01/07/24 15:20 Aspirate Gram Stain - Final Complete 01/07/24 15:20 Aspirate Body Fluid Culture - Final Complete 12/18/23 13:03 Stool Stool Culture - Final Complete 12/18/23 13:03 Stool Shiga Toxin I & II - Final Complete Problem List/Assessment/Plan Problem List/Assessment/Plan Neurology: Metabolic encephalopathy probably secondary to sepsis Currently patient is intubated Currently under empiric IV antibiotic (meropenem and vancomycin) Completed multiple head CTs with no acute intracranial pathology Cardiovascular Acute on chronic systolic congestive heart failure (HFrEF, LVEF 35%)-status post ICD placement And is on Bumex drip Echocardiogram during this admission: Severely reduced LVEF, 35%, anterior anteroapical wall akinesia, moderately reduced RV systolic function, rest of study within normal limits. History of coronary artery disease with cardiac arrest (VFib/V-tach) - status post PCI with stent placements Currently aspirin on hold (INR of 2). Completed stress test which showed no ischemia, multiple territories of infarcts NSTEMI type 2 Secondary to septic shock. Stress test negative for ischemia Respiratory Acute respiratory failure due to Multiple pneumonia secondary to Enterobacter cloacae currently is intubated on 01/14/2024 (VCV VT 450, RR 22, peep five, FiO2 30%) Completed new bronchoscopy 01/14/2024 since samples for culture and pathology. Aspiration pneumonia Secondary to Gastrografin study. Required endotracheal intubation on 01/14/2024 and bronchoscopy, Multiple pneumonia secondary to Enterobacter cloacae Completed multiple courses of antibiotics, now on meropenem Gastrointestinal Bowel obstruction secondary to sigmoid adenocarcinoma with hepatic metastasis - status post colectomy with terminal-terminal anastomosis Completed colectomy with terminal terminal anastomosis on 12/25/2023, with previous cardiological clearance. Patient on TPN due to presence of pelvic abscess. undercar specialist on board: Suggested Gastrografin study to evaluate bowel motility Pelvic abscess - status post failed percutaneous drainage Completed new abdomen and pelvis CT with contrast which shows abscess and pelvic area. abscess drainage today afternoon by the surgeon. Hepatomegaly secondary to liver metastasis due to sigmoid adenocarcinoma Monitor CMP and coagulation Transaminitis Secondary to above Genitourinary/Nephrology History of multiple UTIs Last urine culture with no evidence of bacterial growth Metabolic Hypernatremia -Resolved Infectious Disease Septic shock probably secondary to aspiration pneumonia versus pelvic abscess - resolved Required maximum dose of vasopressors (four IV vasopressors). Currently with no IV vasopressors Completed multiple courses of antibiotic (febrile since tazobactam for two days, ceftriaxone for one day, vancomycin previously for 12 days, meropenem previously four 12 days) Multiple cultures completed, only positive 3 times sputum for Enterobacter cloacae (pelvic fluid, blood, and urine culture negative) Id specialist on board Persistent sepsis probably secondary to pelvic abscess Completed new abdomen and pelvis CT with contrast which evidence abscess and pelvic area. abscess drainage on 01/20/24 by the surgeon. Currently under empiric IV antibiotic (vancomycin and meropenem) Hematology Persistent leukocytosis Probably secondary to pelvic abscess Coagulopathy secondary to sepsis INR on 01/19/2024 approximately 1.57 We will hold enoxaparin and aspirin Nutrition: TPN, no enteral feeding until bowel motility evaluated (has to be cleared by ophthalmic surgical assistant) Prophylaxis for PUD and DVT: Currently on pantoprazole and SCDs Lines Left arm PICC line placed on 01/07/2024 New Davies catheter 01/14/2024 ET tube 01/14/2024 Juan Versed Fentanyl NE Bumex Abdomen and pelvis CT which evidence pelvic abscess. Surgery consult done and suggest abscess drainage. abscess drainage today afternoon by the surgeon. Critical Care time spent 62 minutes including, patient care, chart review and updating family, excluding procedure. code status : Full Code Case discussed with Dr Ojeda Plan discussed with: Spouse, Other (RN) My Orders My Orders Orders - NICHOLE CANCINO RESIDENT Procedure Category Date Status Time Potassium Chl PHA 01/20/24 In Process 20meq/100ml 06:30 Dietary Evaluation Review Comments: 1) Advance pt diet when medically feasible to a Cardiac diet 2) Continue current plan of care Expected Outcomes/Goals: 1) F/U in 3-5 days Date of Service: Jan 20, 2024 Billing Provider: KATERINA OJEDA MD Common Visit Codes: 91533-[id number] CARE 30-74 MIN NICHOLE CANCINO RESIDENT Jan 20, 2024 13:21 KATERINA OJEDA MD Jan 21, 2024 11:20
[2024-01-20] MEDS ORDERED: GLYCOPYRROLATE 0.2 MG/ML 1ML VIAL ONE (13:38)
[2024-01-20] MEDS ORDERED: ROCURONIUM 10MG/ML 10ML VIAL IV ONE (13:38)
[2024-01-20] MEDS ORDERED: ONDANSETRON HCL 4 MG/2 ML VIAL ONE (13:38)
[2024-01-20] MEDS ORDERED: DexAMETHasone SOD PHOS 10MG/1ML VIAL INJ ONE (13:38)
[2024-01-20] MEDS ORDERED: CALCIUM CHL(10%) 100MG/ML 10ML VIAL IV ONE (13:42)
[2024-01-20] MEDS: BUPIVACAINE 0.5% P/F INJ 10 ML VIAL ONE (13:50)
[2024-01-20] MEDS: LIDOCAINE W/ EPINEPHRINE 1% 20ML VIAL ONE (13:50)
[2024-01-20] MEDS ORDERED: SODIUM CHLORIDE LOCK 10 ML ONE ×3 (14:18→14:51)
--- NOTE | 2024-01-20 14:45 | DVHPN2 ---
Progress Note - Dictate Date Seen: Jan 20, 2024 Medical Necessity Reason Pt with a Central, PICC or Fol: Yes The following are medically ne: PICC Line, Davies Catheter Reason for davies catheter: Strict I&O Subjective remains intubated vital signs Vital Sign Date Time Temp Pulse Resp B/P (MAP) Pulse Ox O2 Delivery O2 Flow Rate FiO2 01/20/24 13:30 98.8 92 23 108/59 (75) 99 209.8 01/20/24 12:00 30 01/20/24 12:00 Mechanical Ventilator+ Total Intake and Output 01/19/24 01/19/24 01/20/24 15:00 23:00 07:00 Intake Total 713.126 ml 1049.000 ml 783.000 ml Output Total 2300 ml 2550 ml Balance 713.126 ml -1251.000 ml -1767.000 ml medications Current Medications Medications Dose Ordered Sig/Saige Route Start Time Stop Time Status Last Admin Dose Admin Nitroglycerin 0.4 mg Q5MINP PRN SL 12/25/23 16:00 Pantoprazole Sodium 40 mg DAILY IV 12/26/23 10:00 01/20/24 09:18 40 MG Ipratropium [place] 0.5 mg Q6HR NEB 12/27/23 18:00 Cancel Amino Acids 0 ml @ 0 mls/hr PER PHARMACY IV 12/28/23 12:00 Diagnostic Test (Pha) 1 strip Q6HR 12/28/23 18:00 01/20/24 12:19 1 STRIP Insulin Human Regular FOLLOW SLIDING SCALE Q6HR SC 12/28/23 18:00 01/20/24 12:22 4 UNITS Dextrose 50 ml UD IV 12/28/23 13:00 Sodium Chloride 10 ml QSHIFT@10,22 IV 01/05/24 22:00 01/20/24 09:18 10 ML Enoxaparin Sodium 40 mg DAILY SC 01/13/24 10:00 Hold 01/14/24 12:50 40 MG Acetaminophen 1,000 mg Q8HP PRN IV 01/13/24 18:00 01/14/24 03:47 1,000 MG Meropenem 50 ml @ 17 mls/hr Q8H IV 01/14/24 20:00 01/20/24 13:15 17 MLS/HR Lorazepam 0.5 mg Q6HP PRN IV 01/14/24 16:45 Ipratropium [place] 0.5 mg Q6HPRN PRN NEB 01/14/24 18:30 01/19/24 07:47 0.5 MG Fentanyl Citrate 250 ml @ 2.5 mls/hr Q24H IV 01/14/24 19:30 01/20/24 08:39 27.5 MLS/HR Aspirin 81 mg DAILY PO 01/15/24 10:00 Hold Midazolam HCl 50 ml @ 1 mls/hr Q24H IV 01/14/24 20:00 01/20/24 11:05 13 MLS/HR Furosemide 100 mg/ Sodium Chloride 110 ml @ 11 mls/hr Q10H IV 01/17/24 13:30 Hold Norepinephrine Bitartrate 32 mg/ Sodium Chloride 250 ml @ 0.938 mls/ hr Q24H IV 01/17/24 13:45 01/20/24 07:58 1.875 MLS/HR Bumetanide 25 mg/ Miscellaneous 100 ml @ 4 mls/hr Q24H IV 01/17/24 15:30 01/19/24 10:56 4 MLS/HR Micafungin Sodium 100 mg/Sodium Chloride 100 ml @ 100 mls/hr DAILY IV 01/18/24 10:00 01/20/24 09:29 100 MLS/HR Linezolid 300 ml @ 150 mls/hr Q12HR IV 01/18/24 10:00 01/20/24 10:41 150 MLS/HR Fat Emulsion Intravenous 50 ml/ Sodium Chloride 30 meq/Potassium Chloride 40 meq/ Calcium Gluconate 2.3 meq/Magnesium Sulfate 8 meq/ Multivitamins 10 ml/Amino Acids/ Dextrose 1,044.4462 ml @ 43 mls/hr [id number] IV 01/19/24 22:00 01/20/24 21:59 01/19/24 22:00 43 MLS/HR Fat Emulsion Intravenous 50 ml/ Potassium Chloride 40 meq/ Potassium Acetate 40 meq/Magnesium Sulfate 8 meq/ Multivitamins 10 ml/Amino Acids/ Dextrose 1,052 ml @ 43 mls/hr [id number] IV 01/20/24 22:00 01/21/24 21:59 objective Elderly white female Intubated Not on pressors Bilateral pitting edema Davies catheter laboratory and microbiology Laboratory Tests 01/20/24 03:50 Test 01/20/24 03:50 Range/Units Serum Glucose 138 H 74-106 mg/dL Assessment/Plan Acute kidney injury due to hemodynamic mediated 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 Acute respiratory failure, intubated on ventilator Septic shock Hyponatremia due excess H2O Transaminitis abdominal abscess Microcytic anemia due to blood loss Iron deficiency Kidney function has normalized Increased urine output; hypervolemic exam goal negative balance diuretics will discuss decrease dose post op given increase in gastric output Davies catheter Strict I&Os IV antibiotics surgery went to OR for abscess drainage IV albumin today reduce total input and concentrate fluids Dietary Evaluation Review Comments: 1) Advance pt diet when medically feasible to a Cardiac diet 2) Continue current plan of care Expected Outcomes/Goals: 1) F/U in 3-5 days Plan discussed with: Other Critical Care Time(min): 33 MACI JENSEN MD Jan 20, 2024 14:45
[2024-01-20] MEDS: BUMETANIDE INJECTION 25 MG in GIVE UN-DILUTED 0 ML IV SCH (16:24)
--- NOTE | 2024-01-20 17:40 | DVHOP ---
DATE OF SURGERY: 01/20/2024 PREOPERATIVE DIAGNOSES: Peritoneal sepsis, advanced metastatic liver, and colon cancer. POSTOPERATIVE DIAGNOSES: Peritoneal sepsis, advanced metastatic liver, and colon cancer. SURGEON: Xavier Santana MD [employer] TECHNICIAN: Joey Draper NP ANESTHESIA: General endotracheal. ANESTHESIOLOGIST: Efren Mosley. PROCEDURES: Exploratory laparotomy, evacuation of pelvic abscess, liver biopsy, resection of colocolonic anastomosis (disrupted) transverse colon resection, and transverse colon colostomy. DESCRIPTION OF PROCEDURE: Under adequate anesthesia, with the patient's skin prepped and draped, maureen were removed. Wound was reopened, approximately 2 liters of ascitic fluid was evacuated. The pelvis was occupied by a huge abscess, which was cultured. There was evident of anastomotic disruption. The colocolonic anastomosis was completely with the sutures and maureen in plain view. This was secondary to the proximal colon being tethered by the liver. Transverse colon proximal to the anastomosis being tethered to the metastatic lesions in the liver and within the hilum of the spleen. The splenic flexure was mobilized and the anastomotic site was resected separately. A segment of the transverse colon, which was massively dilated was resected in order to facilitate the creation of a transverse colon colostomy. The defect in the abdominal wall was created to accommodate 2 fingerbreadths and through this, the remaining transverse colon was exteriorized. The abdomen was profusely irrigated, irrigant was aspirated. Hemostasis was meticulously accomplished. There was no evidence of bleeding from the site of the liver biopsy, which was done with a trucut needle. Specimen submitted separately. Following assurance of complete hemostasis and report of an accurate needle and sponge count, the abdomen was closed using #1 double stranded PDS suture and metallic skin maureen. Following closure of the abdominal wall, the colostomy was matured with 2-0 Monocryl sutures. The patient remained in unchanged clinical condition at the termination of the procedure, left the operating room following an accurate needle and sponge count. Her , Ronal, was thoroughly informed at [phone]. Xavier Santana MD PF TID: [id number] RECEIPT: [id number]
[2024-01-20] MEDS: TPN PER PHARMACY IV NR (22:27)
[2024-01-21] VITALS (108 sets, daily range): BP systolic 100–142; BP diastolic 38–68; PULSE 86–111; RESP 19–30; TEMP 97.7–99.1; O2SAT 92–100
[2024-01-21 04:15] LABS: Hemoglobin 8.9 g/dL (12.2-16.2)
--- NOTE | 2024-01-21 04:16 | DVH ---
CHEST RADIOGRAPH Indication: ET intubation Technique: Single frontal view of the chest was obtained Comparison: XY CHEST XRAY 1 VIEW on DOS: 01/20/24, XY CHEST PORTABLE on DOS: 01/19/24, XY CHEST XRAY 1 VIEW on DOS: 01/18/24, XY CHEST XRAY 1 VIEW on DOS: 01/17/24, XY CHEST XRAY 1 VIEW on DOS: 01/16/24, X Y CHEST XRAY 1 VIEW on DOS: 01/20/24 FINDINGS: Lines and Tubes: Endotracheal tube, enteric catheter in satisfactory position. Left chest wall AICD. Lungs: Mild congestion Pleura: No effusion. No pneumothorax. Cardiomediastinal contours: Unremarkable Bones: Unremarkable IMPRESSION: Lines and tubes in satisfactory position. No significant interval change. 1.
[2024-01-21 04:19] LABS: Hematocrit 28.9 % (36.0-46.0); Mean Corpuscular Hemoglobin 25.3 pg (28.0-32.0); Mean Corpuscular Hgb Conc. 30.7 g/dL (32.0-36.0); Mean Corpuscular Volume 82.5 fL (80.0-100.0); Platelet Count (auto) 596 10^3/uL (140-450); Red Blood Cells 3.51 10^6/uL (4.0-5.20)
[2024-01-21 05:03] LABS: Alanine Aminotransferase 109 U/L (7-40); Albumin 2.5 g/dL (3.2-4.8); Alkaline Phosphatase 288 U/L (46-116); Anion Gap 13 (5-15); Aspartate Aminotransferase 341 U/L (13-40); Bilirubin, Total 5.6 mg/dL (0.2-1.0); Blood Urea Nitrogen 60 mg/dL (9-23); Calcium 8.9 mg/dL (8.7-10.4); Carbon Dioxide 22 mmol/L (20-31); Chloride 108 mmol/L (98-107); Glucose 213 mg/dL (74-106); Magnesium 2.2 mg/dL (1.6-2.6); Phosphorus 5.7 mg/dL (2.4-5.1); Potassium 4.1 mmol/L (3.5-5.1); Sodium 143 mmol/L (136-145); Total Protein 5.6 g/dL (5.7-8.2)
[2024-01-21 05:07] LABS: Basophils % (manual) 0 (0.0-2.0); Blast Cells 0; Eosinophils % (manual) 0 (0-7); Metamyelocytes % 0; Myelocytes % 0; Promyelocytes % 0; Reactive Lymphocytes 0; Red Cell Distribution Width 26.6 % (11.8-14.3); White Blood Cell 38.5 10^3/uL (4.4-10.8)
[2024-01-21 06:53] LABS: Anisocytosis Moderate; Band Neutrophils % (manual) 7; Lymphocytes % (manual) 2 (10.0-50.0); Monocytes % (manual) 3 (0-12); Platelet Estimate Increased
[2024-01-21 06:54] LABS: Large Platelets FEW; Target Cell MODERATE
[2024-01-21 07:31] LABS: Base Excess -5.1 mmol/L (-2.0-3.0)
--- NOTE | 2024-01-21 08:12 | DVHPNRES ---
Progress Note Date Seen: Jan 21, 2024 Resident Creating Document: NICHOLE CANCINO RESIDENT Medical Necessity Reason Pt with a Central, PICC or Fol: Yes The following are medically ne: PICC Line, Davies Catheter Reason for davies catheter: Strict I&O Subjective Review of Systems A 63-year-old female patient with PMHx of systolic heart failure status post Med[employer] ICD placement -last EF 35% in September2023, CAD status post 4 RYAN in January 2018 , dyslipidemia, recurrent UTIs and pyelonephritis for the past 4 months, hypertension and internal hemorrhoids presented to the ER with a chief complaint of suprapubic abdominal pain and constipation. Patient recently visited [facility] in August this year with her when she [place] and had bite dong all over the body, following which she has been getting recurrent UTIs and pyelonephritis starting September, also reports dry cough since the visit. She reports that the abdominal pain started 12/10 and is associated with tenesmus, she only passes small pellet-like stools associated with mucus and a lot of flatus. Also reports history of internal hemorrhoids and that she is experiencing bright red bleed per rectum for the past few days. She denies lifetime history of colonoscopy/endoscopy. Reports nausea, chills on and off but no fever. Denies lifetime history of STI, is monogamous with the . Her did not get any symptoms after the trip. PCP Jodie Rico Past surgical history; Partial hysterectomy Family history: Unremarkable Social history: Lives with , denies smoking, drank heavily during the vacation - quit since, denies illicit drug Patient seen and examined at bedside. Abdomen and pelvis CT which evidence pelvic abscess. Exploratory laparotomy with evacuation of pelvic abscess done yesterday, colostomy bag is placed. Two JONATHAN drains were placed to lower portion of abdomen, liver biopsy was done at the time. Objective vital signs Vital Sign Date Time Temp Pulse Resp B/P (MAP) Pulse Ox O2 Delivery O2 Flow Rate FiO2 01/21/24 07:48 95 22 119/58 (78) 95 30 01/21/24 07:45 98.2 208.8 01/21/24 06:00 Mechanical Ventilator+ Total Intake and Output 01/20/24 01/20/24 01/21/24 15:00 23:00 07:00 Intake Total 1452.563 ml 1051.189 ml 699.25 ml Output Total 1830 ml 610 ml Balance 1452.563 ml -778.811 ml 89.25 ml medications Current Medications Medications Dose Ordered Sig/Saige Route Start Time Stop Time Status Last Admin Dose Admin Nitroglycerin 0.4 mg Q5MINP PRN SL 12/25/23 16:00 Pantoprazole Sodium 40 mg DAILY IV 12/26/23 10:00 01/20/24 09:18 40 MG Ipratropium [place] 0.5 mg Q6HR NEB 12/27/23 18:00 Cancel Amino Acids 0 ml @ 0 mls/hr PER PHARMACY IV 12/28/23 12:00 Diagnostic Test (Pha) 1 strip Q6HR 12/28/23 18:00 01/21/24 05:46 1 STRIP Insulin Human Regular FOLLOW SLIDING SCALE Q6HR SC 12/28/23 18:00 01/21/24 05:48 4 UNITS Dextrose 50 ml UD IV 12/28/23 13:00 Sodium Chloride 10 ml QSHIFT@10,22 IV 01/05/24 22:00 01/20/24 22:32 10 ML Enoxaparin Sodium 40 mg DAILY SC 01/13/24 10:00 Hold 01/14/24 12:50 40 MG Acetaminophen 1,000 mg Q8HP PRN IV 01/13/24 18:00 01/14/24 03:47 1,000 MG Meropenem 50 ml @ 17 mls/hr Q8H IV 01/14/24 20:00 01/21/24 03:32 17 MLS/HR Lorazepam 0.5 mg Q6HP PRN IV 01/14/24 16:45 Ipratropium [place] 0.5 mg Q6HPRN PRN NEB 01/14/24 18:30 01/21/24 07:58 0.5 MG Fentanyl Citrate 250 ml @ 2.5 mls/hr Q24H IV 01/14/24 19:30 01/21/24 01:05 30 MLS/HR Aspirin 81 mg DAILY PO 01/15/24 10:00 Hold Midazolam HCl 50 ml @ 1 mls/hr Q24H IV 01/14/24 20:00 01/21/24 07:12 14 MLS/HR Furosemide 100 mg/ Sodium Chloride 110 ml @ 11 mls/hr Q10H IV 01/17/24 13:30 Hold Norepinephrine Bitartrate 32 mg/ Sodium Chloride 250 ml @ 0.938 mls/ hr Q24H IV 01/17/24 13:45 01/20/24 07:58 1.875 MLS/HR Micafungin Sodium 100 mg/Sodium Chloride 100 ml @ 100 mls/hr DAILY IV 01/18/24 10:00 01/20/24 09:29 100 MLS/HR Linezolid 300 ml @ 150 mls/hr Q12HR IV 01/18/24 10:00 01/20/24 22:32 150 MLS/HR Fat Emulsion Intravenous 50 ml/ Potassium Chloride 40 meq/ Potassium Acetate 40 meq/Magnesium Sulfate 8 meq/ Multivitamins 10 ml/Amino Acids/ Dextrose 1,052 ml @ 43 mls/hr [id number] IV 01/20/24 22:00 01/21/24 21:59 01/20/24 22:27 43 MLS/HR Bumetanide 25 mg/ Miscellaneous 100 ml @ 2 mls/hr Q24H IV 01/20/24 14:45 01/20/24 16:24 2 MLS/HR Examination Gen. Sedated, intubated on mechanical ventilator. Head: Normocephalic, atraumatic. Eyes: PERRLA. Ears: Normal external anatomy. Throat: Endotracheal tube and orogastric tube in place. Neck: Supple, trachea midline. Chest: Transmitted breath sounds bilaterally. Decreased air entry bilaterally. No wheezing. Bibasilar crackles. Cardiovascular: Positive S1, positive S2. Regular rate and rhythm. Abdomen: Positive bowel sounds in all 4 quadrants. Soft, nontender, nondistended. : Davies in place. Normal external genitalia. Skin: Warm, dry. Intact. Extremities: 2+ radial pulses bilaterally. No lower extremity edema. Neuro: Sedated. laboratory and microbiology Laboratory Tests 01/21/24 03:31 Test 01/21/24 03:31 Range/Units Serum Glucose 213 H 74-106 mg/dL Microbiology Date/Time Source Procedure Growth Status 01/14/24 19:03 Trachea Gram Stain - Final Complete 01/14/24 19:03 Respiratory Culture - Final Yeast, not Ayse albicans Complete 01/14/24 10:28 Voided Urine Urine Culture - Final Complete 01/14/24 10:25 Blood Blood Culture - Final NO GROWTH AFTER 5 DAYS OF INCUBATION. Complete 01/12/24 16:13 Sputum Gram Stain - Final Complete 01/12/24 16:13 Respiratory Culture - Final Enterobacter cloacae Complete 01/07/24 15:20 Aspirate Gram Stain - Final Complete 01/07/24 15:20 Aspirate Body Fluid Culture - Final Complete 12/18/23 13:03 Stool Stool Culture - Final Complete 12/18/23 13:03 Stool Shiga Toxin I & II - Final Complete Problem List/Assessment/Plan Problem List/Assessment/Plan Neurology: Metabolic encephalopathy probably secondary to sepsis Currently patient is intubated Currently under empiric IV antibiotic (meropenem and Linezolid) Completed multiple head CTs with no acute intracranial pathology Cardiovascular Acute on chronic systolic congestive heart failure (HFrEF, LVEF 35%)-status post ICD placement And is on Bumex drip Echocardiogram during this admission: Severely reduced LVEF, 35%, anterior anteroapical wall akinesia, moderately reduced RV systolic function, rest of study within normal limits. History of coronary artery disease with cardiac arrest (VFib/V-tach) - status post PCI with stent placements Currently aspirin on hold (INR of 2). Completed stress test which showed no ischemia, multiple territories of infarcts NSTEMI type 2 Secondary to septic shock. Stress test negative for ischemia Respiratory Acute respiratory failure due to Multiple pneumonia secondary to Enterobacter cloacae and Klebsiella Ruled out Ventilator associated Pneumonia currently is intubated on 01/14/2024 (VCV VT 450, RR 22, peep five, FiO2 30%) Completed new bronchoscopy 01/14/2024 since samples for culture and pathology. Aspiration pneumonia due to Gm +/- Bacteria. Secondary to Gastrografin study. Required endotracheal intubation on 01/14/2024 and bronchoscopy, Multiple pneumonia secondary to Enterobacter cloacae and Klebsiella Completed multiple courses of antibiotics, now on meropenem and Linezolid. Gastrointestinal Bowel obstruction secondary to sigmoid adenocarcinoma with hepatic metastasis - status post colectomy with terminal-terminal anastomosis Completed colectomy with terminal terminal anastomosis on 12/25/2023, with previous cardiological clearance. diagnostic sales specialist on board. Pelvic abscess - status post drainage abdomen and pelvis CT with contrast which shows abscess and pelvic area. Exploratory laparotomy with evacuation of pelvic abscess done on 01/20/24, colostomy bag is placed. Two JONATHAN drains were placed to lower portion of abdomen, Hepatomegaly secondary to liver metastasis due to sigmoid adenocarcinoma Monitor CMP and coagulation Transaminitis Secondary to above Genitourinary/Nephrology History of multiple UTIs Last urine culture with no evidence of bacterial growth Metabolic Hypernatremia -Resolved Infectious Disease Septic shock probably secondary to aspiration pneumonia versus pelvic abscess - resolved Required maximum dose of vasopressors (four IV vasopressors). Currently with no IV vasopressors Completed multiple courses of antibiotic (febrile since tazobactam for two days, ceftriaxone for one day, vancomycin previously for 12 days, meropenem previously four 12 days) Multiple cultures completed, only positive 3 times sputum for Enterobacter cloacae (pelvic fluid, blood, and urine culture negative) Id specialist on board Persistent sepsis probably secondary to pelvic abscess Completed new abdomen and pelvis CT with contrast which evidence abscess and pelvic area. abscess drainage on 01/20/24 by the surgeon. Currently under empiric IV antibiotic (Linezolid and meropenem) Hematology Persistent leukocytosis Probably secondary to pelvic abscess Coagulopathy secondary to sepsis INR on 01/19/2024 approximately 1.57 We will hold enoxaparin and aspirin Nutrition: TPN, no enteral feeding until bowel motility evaluated (has to be cleared by orientation and mobility specialist) Prophylaxis for PUD and DVT: Currently on pantoprazole and SCDs Lines Left arm PICC line placed on 01/07/2024 New Davies catheter 01/14/2024 ET tube 01/14/2024 Drips Versed Fentanyl NE Bumex Abdomen and pelvis CT which evidence pelvic abscess. Exploratory laparotomy with evacuation of pelvic abscess done on 01/20/24, colostomy bag is placed. Two JONATHAN drains were placed to lower portion of abdomen, liver biopsy was done at the time. Critical Care time spent 81 minutes including, patient care, chart review and updating family, excluding procedure. code status : Full Code Case discussed with Dr Ojeda Plan discussed with: Spouse, Other My Orders My Orders Orders - NICHOLE CANCINO RESIDENT Procedure Category Date Status Time Abg W/ Co-Ox RT 01/21/24 Logged 04:00 Dietary Evaluation Review Comments: 1) Advance pt diet when medically feasible to a Cardiac diet 2) Continue current plan of care Expected Outcomes/Goals: 1) F/U in 3-5 days Date of Service: Jan 21, 2024 Billing Provider: KATERINA OJEDA MD Common Visit Codes: 31148-[id number] CARE 30-74 MIN, 53208-[id number] CARE-EACH +30MIN NICHOLE CANCINO RESIDENT Jan 21, 2024 08:12 KATERINA OJEDA MD Jan 22, 2024 11:07
--- NOTE | 2024-01-21 11:50 | DVHPN2 ---
Progress Note - Dictate Date Seen: Jan 21, 2024 Medical Necessity Reason Pt with a Central, PICC or Fol: Yes The following are medically ne: PICC Line, Davies Catheter Reason for davies catheter: Strict I&O Subjective Patient was seen and examined at bedside. She is sedated, intubated on mechanical ventilator. Abdomen and pelvis CT which evidence pelvic abscess. Exploratory laparotomy with evacuation of pelvic abscess done yesterday, colostomy bag is placed. Two JONATHAN drains were placed to lower portion of abdomen, liver biopsy was done at the time.. WBC trending up from 18.4 to 38.5. Antibiotic status: Vancomycin HCl 200 ml @ 200 mls/hr - [Started 12/31 - 01/15] Linezolid [ started 01/17 - Ongoing] Meropenem 50 ml @ 17 mls/hr - [Started - 01/02 - stopped] ; restarted 01/13 - Ongoing vital signs Vital Sign Date Time Temp Pulse Resp B/P (MAP) Pulse Ox O2 Delivery O2 Flow Rate FiO2 01/21/24 10:45 98.2 107 22 108/57 (74) 93 208.8 01/21/24 10:00 Mechanical Ventilator+ 30 30 Total Intake and Output 01/20/24 01/20/24 01/21/24 15:00 23:00 07:00 Intake Total 1452.563 ml 1051.189 ml 792.00 ml Output Total 1830 ml 610 ml Balance 1452.563 ml -778.811 ml 182.00 ml medications Current Medications Medications Dose Ordered Sig/Saige Route Start Time Stop Time Status Last Admin Dose Admin Nitroglycerin 0.4 mg Q5MINP PRN SL 12/25/23 16:00 Pantoprazole Sodium 40 mg DAILY IV 12/26/23 10:00 01/21/24 10:12 40 MG Ipratropium [place] 0.5 mg Q6HR NEB 12/27/23 18:00 Cancel Amino Acids 0 ml @ 0 mls/hr PER PHARMACY IV 12/28/23 12:00 Diagnostic Test (Pha) 1 strip Q6HR 12/28/23 18:00 01/21/24 05:46 1 STRIP Insulin Human Regular FOLLOW SLIDING SCALE Q6HR SC 12/28/23 18:00 01/21/24 05:48 4 UNITS Dextrose 50 ml UD IV 12/28/23 13:00 Sodium Chloride 10 ml QSHIFT@10,22 IV 01/05/24 22:00 01/21/24 10:13 10 ML Enoxaparin Sodium 40 mg DAILY SC 01/13/24 10:00 Hold 01/14/24 12:50 40 MG Acetaminophen 1,000 mg Q8HP PRN IV 01/13/24 18:00 01/14/24 03:47 1,000 MG Meropenem 50 ml @ 17 mls/hr Q8H IV 01/14/24 20:00 01/21/24 03:32 17 MLS/HR Lorazepam 0.5 mg Q6HP PRN IV 01/14/24 16:45 Ipratropium [place] 0.5 mg Q6HPRN PRN NEB 01/14/24 18:30 01/21/24 07:58 0.5 MG Fentanyl Citrate 250 ml @ 2.5 mls/hr Q24H IV 01/14/24 19:30 01/21/24 08:56 3 MLS/HR Aspirin 81 mg DAILY PO 01/15/24 10:00 Hold Midazolam HCl 50 ml @ 1 mls/hr Q24H IV 01/14/24 20:00 01/21/24 10:39 14 MLS/HR Furosemide 100 mg/ Sodium Chloride 110 ml @ 11 mls/hr Q10H IV 01/17/24 13:30 Hold Norepinephrine Bitartrate 32 mg/ Sodium Chloride 250 ml @ 0.938 mls/ hr Q24H IV 01/17/24 13:45 01/20/24 07:58 1.875 MLS/HR Micafungin Sodium 100 mg/Sodium Chloride 100 ml @ 100 mls/hr DAILY IV 01/18/24 10:00 01/21/24 10:12 100 MLS/HR Linezolid 300 ml @ 150 mls/hr Q12HR IV 01/18/24 10:00 01/20/24 22:32 150 MLS/HR Fat Emulsion Intravenous 50 ml/ Potassium Chloride 40 meq/ Potassium Acetate 40 meq/Magnesium Sulfate 8 meq/ Multivitamins 10 ml/Amino Acids/ Dextrose 1,052 ml @ 43 mls/hr [id number] IV 01/20/24 22:00 01/21/24 21:59 12/3/24 22:27 43 MLS/HR Bumetanide 25 mg/ Miscellaneous 100 ml @ 2 mls/hr Q24H IV 01/20/24 14:45 01/20/24 16:24 2 MLS/HR Fat Emulsion Intravenous 50 ml/ Potassium Acetate 60 meq/Magnesium Sulfate 6 meq/ Multivitamins 10 ml/Amino Acids/ Dextrose 1,041.5 ml @ 43 mls/hr [id number] IV 01/21/24 22:00 01/22/24 21:59 objective General.: Patient lying in bed in medical ICU. Sedated, intubated on mechanical ventilator. Head: Normocephalic, atraumatic. Eyes: PERRLA. Ears: Normal external anatomy. Throat: Endotracheal tube and orogastric tube in place. Neck: Supple, trachea midline. Chest: Transmitted breath sounds bilaterally. Decreased air entry bilaterally. No wheezing. Bibasilar crackles. Cardiovascular: Positive S1, positive S2. Regular rate and rhythm. Abdomen: s/p ex lap, JONATHAN drain +. colostomy : Davies in place. Normal external genitalia. Skin: Warm, dry. Intact. Extremities: 2+ radial pulses bilaterally. +4 pitting edema. Neuro: Sedated. laboratory and microbiology Laboratory Tests 01/21/24 03:31 Test 01/21/24 03:31 Range/Units Serum Glucose 213 H 74-106 mg/dL Assessment/Plan Patient is a 64-year-old female presents to the hospital with: Pelvic abscess; colon leak septic shock vs distributive shock leucocytosis Ventilator associated Pneumonia : [place] large bowel obstruction s/p colectomy s/p end to end anastomosis 12/24 possible colon cancer with mets ascites: malignant vs post surgical vs infection Liver mets acute hypoxic respiratory failure on mechanical ventilation CHF anasarca Recommendations: repeat Ct abdomen and pelvis shows large collection, concern fo colon leak/ abscess s/p Ex lap, 01/19. OR cx sent. wbc trending high on pressors broad spectrum antibiotics continue Vancomycin [was stopped on 01/17] cont Zyvox , micafungin and meropenem OR cx 01/19, Aerobic and Anaerobic culture: prelim negative ; follow cultures review 01/06: body fluid cultures : few WBC seen , no organisms 01/05, Blood culture: No growth 01/05, Urine culture: No growth 01/04, Aerobic culture: No growth 12/29 : sputum culture notable for Enterobacter cloacae. CT pelvic wo contrast done on 01/06 : CT guided needle/catheter placement into the low pelvic fluid collection with aspiration of 1-2 mL of yellow serous fluid. overall prognosis is very poor with mets, plus worsening sepsis. consider goals of care discussion. crit time 35 minutes spent in co-ordination of care Thank you for the consult and for giving an opportunity to take care of this patient. Dietary Evaluation Review Comments: 1) Advance pt diet when medically feasible to a Cardiac diet 2) Continue current plan of care Expected Outcomes/Goals: 1) F/U in 3-5 days Plan discussed with: JASPREET Galvan MD Jan 21, 2024 11:50
--- NOTE | 2024-01-21 12:38 | DVHPN2 ---
Progress Note Date Seen: Jan 21, 2024 Medical Necessity Reason Pt with a Central, PICC or Fol: Yes The following are medically ne: PICC Line, Davies Catheter Reason for davies catheter: Strict I&O Objective vital signs Vital Sign Date Time Temp Pulse Resp B/P (MAP) Pulse Ox O2 Delivery O2 Flow Rate FiO2 01/21/24 12:32 102/52 01/21/24 11:39 102 22 100 30 01/21/24 10:45 98.2 208.8 01/21/24 10:00 Mechanical Ventilator+ Total Intake and Output 01/20/24 01/20/24 01/21/24 15:00 23:00 07:00 Intake Total 1452.563 ml 1051.189 ml 792.00 ml Output Total 1830 ml 610 ml Balance 1452.563 ml -778.811 ml 182.00 ml medications Current Medications Medications Dose Ordered Sig/Saige Route Start Time Stop Time Status Last Admin Dose Admin Nitroglycerin 0.4 mg Q5MINP PRN SL 12/25/23 16:00 Pantoprazole Sodium 40 mg DAILY IV 12/26/23 10:00 01/21/24 10:12 40 MG Ipratropium [place] 0.5 mg Q6HR NEB 12/27/23 18:00 Cancel Amino Acids 0 ml @ 0 mls/hr PER PHARMACY IV 12/28/23 12:00 Diagnostic Test (Pha) 1 strip Q6HR 12/28/23 18:00 01/21/24 12:19 1 STRIP Insulin Human Regular FOLLOW SLIDING SCALE Q6HR SC 12/28/23 18:00 01/21/24 12:24 4 UNITS Dextrose 50 ml UD IV 12/28/23 13:00 Sodium Chloride 10 ml QSHIFT@10,22 IV 01/05/24 22:00 01/21/24 10:13 10 ML Enoxaparin Sodium 40 mg DAILY SC 01/13/24 10:00 Hold 01/14/24 12:50 40 MG Acetaminophen 1,000 mg Q8HP PRN IV 01/13/24 18:00 01/14/24 03:47 1,000 MG Meropenem 50 ml @ 17 mls/hr Q8H IV 01/14/24 20:00 01/21/24 12:22 17 MLS/HR Lorazepam 0.5 mg Q6HP PRN IV 01/14/24 16:45 Ipratropium [place] 0.5 mg Q6HPRN PRN NEB 01/14/24 18:30 01/21/24 07:58 0.5 MG Fentanyl Citrate 250 ml @ 2.5 mls/hr Q24H IV 01/14/24 19:30 01/21/24 08:56 3 MLS/HR Aspirin 81 mg DAILY PO 01/15/24 10:00 Hold Midazolam HCl 50 ml @ 1 mls/hr Q24H IV 01/14/24 20:00 01/21/24 10:39 14 MLS/HR Furosemide 100 mg/ Sodium Chloride 110 ml @ 11 mls/hr Q10H IV 01/17/24 13:30 Hold Norepinephrine Bitartrate 32 mg/ Sodium Chloride 250 ml @ 0.938 mls/ hr Q24H IV 01/17/24 13:45 01/20/24 07:58 1.875 MLS/HR Micafungin Sodium 100 mg/Sodium Chloride 100 ml @ 100 mls/hr DAILY IV 01/18/24 10:00 01/21/24 10:12 100 MLS/HR Linezolid 300 ml @ 150 mls/hr Q12HR IV 01/18/24 10:00 01/20/24 22:32 150 MLS/HR Fat Emulsion Intravenous 50 ml/ Potassium Chloride 40 meq/ Potassium Acetate 40 meq/Magnesium Sulfate 8 meq/ Multivitamins 10 ml/Amino Acids/ Dextrose 1,052 ml @ 43 mls/hr [id number] IV 01/20/24 22:00 01/21/24 21:59 01/20/24 22:27 43 MLS/HR Bumetanide 25 mg/ Miscellaneous 100 ml @ 2 mls/hr Q24H IV 01/20/24 14:45 01/21/24 12:32 2 MLS/HR Fat Emulsion Intravenous 50 ml/ Potassium Acetate 60 meq/Magnesium Sulfate 6 meq/ Multivitamins 10 ml/Amino Acids/ Dextrose 1,041.5 ml @ 43 mls/hr [id number] IV 01/21/24 22:00 01/22/24 21:59 laboratory and microbiology Laboratory Tests 01/21/24 03:31 Test 01/21/24 03:31 Range/Units Serum Glucose 213 H 74-106 mg/dL Problem List/Assessment/Plan Problem List/Assessment/Plan 01/06/[address] Aditi BUCKLEY, ABDOMEN APPEARS TO BE TENDER IN THE LEFT LOWER QUADRANT, WOUND IS CLEAN AND WELL APPROXIMATED, DRAINAGE FROM LOWER PORTION OF MIDLINE WOUND.AWAITING ir intervention 01/07/24 essentially unchanged, continues hypotensive with leukocytosis, abdomen "full", no BM or flatus reported, spoke to interventional radiologist, he will proceed with drainage of pelvic fluid collection via transgluteal approach 01/08/24 slightly improved, discussed pelvic fluid drainage with radiologist,abdomen soft, non distended, continue current treatments 01/09/24 slightly improved, abdomen less tense, wound clean ,drainage clear, good urine output, less pressors requirement 01/10/24 wbc slightly better, wound ok, abdomen soft and non distended, no BM, will add reglan, once she passes flatus NG tube can be DC'd 01/11/24 'S QUESTIONS ANSWERED, SHE CONTINUES UNCHANGED, WOUND CLEAN ,ABDOMEN NON DISTENDED 01/12/24 abdomen non distended, appears non tender()pt awakens), wound clean and well approximated, undergoing CPAP trial 01/14/24 abdomen benign, sepsis persists, will get gastrografin small bowel series in hope of starting po intake 01/15/24 patient aspirated yesterday and was re intubated, there is what appears a large fluid collection/abscess in the pelvis which could be due to an anastomotic colon leak, I thoroughly explained to (patient sedated) that if radiologist not available to do a ct guided aspiration, she would need an operation to drain the pelvic abscess and could end up with a colostomy. I showed the patient's CT scan images to the and explained that the liver is essentially replaced with what appears to be malignant deposits. I told him to "think hard about what would his want" if she were able to make a decision for her self in this situation. 01/17/24 apparently no radiologist is on premiss till Friday, not at bedside this morning, patient essentially clinically unchanged, will wait to hear from patient's about family's wishes 01/19/24 radiologist not able to do percutaneous drainage patient continues to be septic, will proceed with operation Friday . operation, colostomy etc, previously explained to patient's who left a message with patient's nurse that he wished tyo proceed with the operation even though I explained to him that the patient will ultimately probably of her cancer 01/21/24 sedated, on mechanical ventilator, essentially unchanged from pre op condition, abdomen non distended, wound dressing clean, scotty drainage non sanguineous, stoma viable without function. Plan discussed with: Other Dietary Evaluation Review Comments: 1) Advance pt diet when medically feasible to a Cardiac diet 2) Continue current plan of care Expected Outcomes/Goals: 1) F/U in 3-5 days ASPEN EUBANKS MD Jan 21, 2024 12:38
--- NOTE | 2024-01-21 14:58 | DVHPN2 ---
Progress Note - Dictate Date Seen: Jan 21, 2024 Medical Necessity Reason Pt with a Central, PICC or Fol: Yes The following are medically ne: PICC Line, Davies Catheter Reason for davies catheter: Strict I&O Subjective remains intubated vital signs Vital Sign Date Time Temp Pulse Resp B/P (MAP) Pulse Ox O2 Delivery O2 Flow Rate FiO2 01/21/24 13:46 98 22 113/56 (75) 99 30 01/21/24 13:00 98.1 208.6 01/21/24 12:00 Mechanical Ventilator+ Total Intake and Output 01/20/24 01/20/24 01/21/24 15:00 23:00 07:00 Intake Total 1452.563 ml 1051.189 ml 792.00 ml Output Total 1830 ml 610 ml Balance 1452.563 ml -778.811 ml 182.00 ml medications Current Medications Medications Dose Ordered Sig/Saige Route Start Time Stop Time Status Last Admin Dose Admin Nitroglycerin 0.4 mg Q5MINP PRN SL 12/25/23 16:00 Pantoprazole Sodium 40 mg DAILY IV 12/26/23 10:00 01/21/24 10:12 40 MG Ipratropium [place] 0.5 mg Q6HR NEB 12/27/23 18:00 Cancel Amino Acids 0 ml @ 0 mls/hr PER PHARMACY IV 12/28/23 12:00 Diagnostic Test (Pha) 1 strip Q6HR 12/28/23 18:00 01/21/24 12:19 1 STRIP Insulin Human Regular FOLLOW SLIDING SCALE Q6HR SC 12/28/23 18:00 01/21/24 12:24 4 UNITS Dextrose 50 ml UD IV 12/28/23 13:00 Sodium Chloride 10 ml QSHIFT@10,22 IV 01/05/24 22:00 01/21/24 10:13 10 ML Enoxaparin Sodium 40 mg DAILY SC 01/13/24 10:00 Hold 01/14/24 12:50 40 MG Acetaminophen 1,000 mg Q8HP PRN IV 01/13/24 18:00 01/14/24 03:47 1,000 MG Meropenem 50 ml @ 17 mls/hr Q8H IV 01/14/24 20:00 01/21/24 12:22 17 MLS/HR Lorazepam 0.5 mg Q6HP PRN IV 01/14/24 16:45 Ipratropium [place] 0.5 mg Q6HPRN PRN NEB 01/14/24 18:30 01/21/24 13:53 0.5 MG Fentanyl Citrate 250 ml @ 2.5 mls/hr Q24H IV 01/14/24 19:30 01/21/24 08:56 3 MLS/HR Aspirin 81 mg DAILY PO 01/15/24 10:00 Hold Midazolam HCl 50 ml @ 1 mls/hr Q24H IV 01/14/24 20:00 01/21/24 12:53 1 MLS/HR Furosemide 100 mg/ Sodium Chloride 110 ml @ 11 mls/hr Q10H IV 01/17/24 13:30 Hold Norepinephrine Bitartrate 32 mg/ Sodium Chloride 250 ml @ 0.938 mls/ hr Q24H IV 01/17/24 13:45 01/20/24 07:58 1.875 MLS/HR Micafungin Sodium 100 mg/Sodium Chloride 100 ml @ 100 mls/hr DAILY IV 01/18/24 10:00 01/21/24 10:12 100 MLS/HR Linezolid 300 ml @ 150 mls/hr Q12HR IV 01/18/24 10:00 01/20/24 22:32 150 MLS/HR Fat Emulsion Intravenous 50 ml/ Potassium Chloride 40 meq/ Potassium Acetate 40 meq/Magnesium Sulfate 8 meq/ Multivitamins 10 ml/Amino Acids/ Dextrose 1,052 ml @ 43 mls/hr [id number] IV 01/20/24 22:00 01/21/24 21:59 01/20/24 22:27 43 MLS/HR Bumetanide 25 mg/ Miscellaneous 100 ml @ 2 mls/hr Q24H IV 01/20/24 14:45 01/21/24 12:32 2 MLS/HR Fat Emulsion Intravenous 50 ml/ Potassium Acetate 60 meq/Magnesium Sulfate 6 meq/ Multivitamins 10 ml/Amino Acids/ Dextrose 1,041.5 ml @ 43 mls/hr [id number] IV 01/21/24 22:00 01/22/24 21:59 objective Elderly white female Intubated Not on pressors Bilateral pitting edema severe Anasarca Davies catheter laboratory and microbiology Laboratory Tests 01/21/24 03:31 Test 01/21/24 03:31 Range/Units Serum Glucose 213 H 74-106 mg/dL Assessment/Plan Acute kidney injury due to hemodynamic mediated 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 Acute respiratory failure, intubated on ventilator Septic shock Hyponatremia due excess H2O Transaminitis abdominal abscess Microcytic anemia due to blood loss Iron deficiency Kidney function has normalized Increased urine output; hypervolemic exam goal negative balance diuretics will continue for now Davies catheter Strict I&Os IV antibiotics surgery went to OR for abscess drainage has JONATHAN drains noted reduce total input and concentrate fluids [facility] prognosis given metastatic cancer Dietary Evaluation Review Comments: 1) Advance pt diet when medically feasible to a Cardiac diet 2) Continue current plan of care Expected Outcomes/Goals: 1) F/U in 3-5 days Plan discussed with: Other Critical Care Time(min): 33 MACI JENSEN MD Jan 21, 2024 14:58
[2024-01-21] MEDS: TPN PER PHARMACY IV NR (22:06)
[2024-01-22] VITALS (108 sets, daily range): BP systolic 91–131; BP diastolic 48–61; PULSE 75–94; RESP 20–28; TEMP 96.3–98.1; O2SAT 93–100
--- NOTE | 2024-01-22 04:09 | DVH ---
CHEST RADIOGRAPH Indication: ET intubation Technique: Single frontal view of the chest was obtained Comparison: XY CHEST XRAY 1 VIEW on DOS: 01/21/24, XY CHEST XRAY 1 VIEW on DOS: 01/20/24, XY CHEST PORT ABLE on DOS: 01/19/24, XY CHEST XRAY 1 VIEW on DOS: 01/18/24, XY CHEST XRAY 1 VIEW on DOS: 01/17/24, XY CHEST XRAY 1 VIEW on DOS: 01/21/24 FINDINGS: Lines and Tubes: Endotracheal tube, enteric catheter in satisfactory position. Left chest wall AICD. Lungs: Mild congestion Pleura: No effusion. No pneumothorax. Cardiomediastinal contours: Unremarkable Bones: Unremarkable IMPRESSION: Lines and tubes in satisfactory position. No significant interval change.
[2024-01-22 04:32] LABS: Anion Gap 11 (5-15); BUN/Creatinine Ratio 92.2 (10.0-20.0); Calcium 8.7 mg/dL (8.7-10.4); Carbon Dioxide 24 mmol/L (20-31); Magnesium 2.2 mg/dL (1.6-2.6); Potassium 4.4 mmol/L (3.5-5.1)
[2024-01-22 04:39] LABS: Alanine Aminotransferase 136 U/L (7-40); Albumin 2.5 g/dL (3.2-4.8); Alkaline Phosphatase 264 U/L (46-116); Aspartate Aminotransferase 334 U/L (13-40); Bilirubin, Total 4.1 mg/dL (0.2-1.0); Blood Urea Nitrogen 71 mg/dL (9-23); Chloride 110 mmol/L (98-107); Glucose 137 mg/dL (74-106); Sodium 145 mmol/L (136-145); Total Protein 5.4 g/dL (5.7-8.2)
[2024-01-22 07:02] LABS: Base Excess -1.6 mmol/L (-2.0-3.0)
--- NOTE | 2024-01-22 07:46 | DVHPNRES ---
Progress Note Date Seen: Jan 22, 2024 Resident Creating Document: NICHOLE CANCINO RESIDENT Medical Necessity Reason Pt with a Central, PICC or Fol: Yes The following are medically ne: PICC Line, Davies Catheter Reason for davies catheter: Strict I&O Subjective Review of Systems A 63-year-old female patient with PMHx of systolic heart failure status post Med[employer] ICD placement -last EF 35% in September2023, CAD status post 4 RYAN in January 2018 , dyslipidemia, recurrent UTIs and pyelonephritis for the past 4 months, hypertension and internal hemorrhoids presented to the ER with a chief complaint of suprapubic abdominal pain and constipation. Patient recently visited [facility] in August this year with her when she went to the [place] barefoot and had bite dong all over the body, following which she has been getting recurrent UTIs and pyelonephritis starting September, also reports dry cough since the visit. She reports that the abdominal pain started 12/10 and is associated with tenesmus, she only passes small pellet-like stools associated with mucus and a lot of flatus. Also reports history of internal hemorrhoids and that she is experiencing bright red bleed per rectum for the past few days. She denies lifetime history of colonoscopy/endoscopy. Reports nausea, chills on and off but no fever. Denies lifetime history of STI, is monogamous with the . Her did not get any symptoms after the trip. PCP Jodie Rico Past surgical history; Partial hysterectomy Family history: Unremarkable Social history: Lives with , denies smoking, drank heavily during the vacation - quit since, denies illicit drug Patient seen and examined at bedside. Abdomen and pelvis CT which evidence pelvic abscess. Exploratory laparotomy with evacuation of pelvic abscess done on 01/20/24, colostomy bag is placed. Two JONATHAN drains were placed to lower portion of abdomen, liver biopsy was done at the time. Objective vital signs Vital Sign Date Time Temp Pulse Resp B/P (MAP) Pulse Ox O2 Delivery O2 Flow Rate FiO2 01/22/24 06:45 96.3 78 26 115/50 (71) 96 205.3 01/22/24 06:00 Mechanical Ventilator+ 30 30 Total Intake and Output 01/21/24 01/21/24 01/22/24 15:00 23:00 07:00 Intake Total 894.90 ml 679.290 ml 1069.504 ml Output Total 755 ml 725 ml Balance 894.90 ml -75.710 ml 344.504 ml medications Current Medications Medications Dose Ordered Sig/Saige Route Start Time Stop Time Status Last Admin Dose Admin Nitroglycerin 0.4 mg Q5MINP PRN SL 12/25/23 16:00 Pantoprazole Sodium 40 mg DAILY IV 12/26/23 10:00 01/21/24 10:12 40 MG Ipratropium [place] 0.5 mg Q6HR NEB 12/27/23 18:00 Cancel Amino Acids 0 ml @ 0 mls/hr PER PHARMACY IV 12/28/23 12:00 Diagnostic Test (Pha) 1 strip Q6HR 12/28/23 18:00 01/22/24 05:46 1 STRIP Insulin Human Regular FOLLOW SLIDING SCALE Q6HR SC 12/28/23 18:00 01/22/24 05:54 2 UNITS Dextrose 50 ml UD IV 12/28/23 13:00 Sodium Chloride 10 ml QSHIFT@10,22 IV 01/05/24 22:00 01/21/24 21:59 10 ML Enoxaparin Sodium 40 mg DAILY SC 01/13/24 10:00 Hold 01/14/24 12:50 40 MG Acetaminophen 1,000 mg Q8HP PRN IV 01/13/24 18:00 01/14/24 03:47 1,000 MG Meropenem 50 ml @ 17 mls/hr Q8H IV 01/14/24 20:00 01/22/24 03:46 17 MLS/HR Lorazepam 0.5 mg Q6HP PRN IV 01/14/24 16:45 Ipratropium [place] 0.5 mg Q6HPRN PRN NEB 01/14/24 18:30 01/22/24 06:12 0.5 MG Fentanyl Citrate 250 ml @ 2.5 mls/hr Q24H IV 01/14/24 19:30 01/22/24 06:48 30 MLS/HR Aspirin 81 mg DAILY PO 01/15/24 10:00 Hold Midazolam HCl 50 ml @ 1 mls/hr Q24H IV 01/14/24 20:00 01/22/24 05:43 14 MLS/HR Furosemide 100 mg/ Sodium Chloride 110 ml @ 11 mls/hr Q10H IV 01/17/24 13:30 Hold Norepinephrine Bitartrate 32 mg/ Sodium Chloride 250 ml @ 0.938 mls/ hr Q24H IV 01/17/24 13:45 01/21/24 15:02 1.875 MLS/HR Micafungin Sodium 100 mg/Sodium Chloride 100 ml @ 100 mls/hr DAILY IV 01/18/24 10:00 01/21/24 10:12 100 MLS/HR Linezolid 300 ml @ 150 mls/hr Q12HR IV 01/18/24 10:00 01/21/24 21:56 150 MLS/HR Bumetanide 25 mg/ Miscellaneous 100 ml @ 2 mls/hr Q24H IV 01/20/24 14:45 01/21/24 12:32 2 MLS/HR Fat Emulsion Intravenous 50 ml/ Potassium Acetate 60 meq/Magnesium Sulfate 6 meq/ Multivitamins 10 ml/Amino Acids/ Dextrose 1,041.5 ml @ 43 mls/hr [id number] IV 01/21/24 22:00 01/22/24 21:59 01/21/24 22:06 43 MLS/HR Examination Gen. Sedated, intubated on mechanical ventilator. Head: Normocephalic, atraumatic. Eyes: PERRLA. Ears: Normal external anatomy. Throat: Endotracheal tube and orogastric tube in place. Neck: Supple, trachea midline. Chest: Transmitted breath sounds bilaterally. Decreased air entry bilaterally. No wheezing. Bibasilar crackles. Cardiovascular: Positive S1, positive S2. Regular rate and rhythm. Abdomen: Positive bowel sounds in all 4 quadrants. Soft, nontender, nondistended. : Davies in place. Normal external genitalia. Skin: Warm, dry. Intact. Extremities: 2+ radial pulses bilaterally. No lower extremity edema. Neuro: Sedated. laboratory and microbiology Laboratory Tests 01/22/24 04:05 01/21/24 03:31 Test 01/22/24 04:05 Range/Units Serum Glucose 137 H 74-106 mg/dL Microbiology Date/Time Source Procedure Growth Status 01/20/24 14:32 Peritoneal Fluid Gram Stain - Final Resulted 01/20/24 14:32 Peritoneal Fluid Anaerobic Culture - Preliminary Resulted 01/20/24 14:32 Peritoneal Fluid Aerobic Culture - Preliminary Resulted 01/14/24 19:03 Trachea Gram Stain - Final Complete 01/14/24 19:03 Respiratory Culture - Final Yeast, not Ayse albicans Complete 01/14/24 10:28 Voided Urine Urine Culture - Final Complete 01/14/24 10:25 Blood Blood Culture - Final NO GROWTH AFTER 5 DAYS OF INCUBATION. Complete 01/12/24 16:13 Sputum Gram Stain - Final Complete 01/12/24 16:13 Respiratory Culture - Final Enterobacter cloacae Complete 12/18/23 13:03 Stool Stool Culture - Final Complete 12/18/23 13:03 Stool Shiga Toxin I & II - Final Complete Problem List/Assessment/Plan Problem List/Assessment/Plan Neurology: Metabolic encephalopathy probably secondary to sepsis Currently patient is intubated Currently under empiric IV antibiotic (meropenem and Linezolid) Completed multiple head CTs with no acute intracranial pathology Cardiovascular Acute on chronic systolic congestive heart failure (HFrEF, LVEF 35%)-status post ICD placement And is on Bumex drip Echocardiogram during this admission: Severely reduced LVEF, 35%, anterior anteroapical wall akinesia, moderately reduced RV systolic function, rest of study within normal limits. History of coronary artery disease with cardiac arrest (VFib/V-tach) - status post PCI with stent placements Currently aspirin on hold (INR of 2). Completed stress test which showed no ischemia, multiple territories of infarcts NSTEMI type 2 Secondary to septic shock. Stress test negative for ischemia Respiratory Acute respiratory failure due to Multiple pneumonia secondary to Enterobacter cloacae and Klebsiella Ruled out Ventilator associated Pneumonia currently is intubated on 01/14/2024 (VCV VT 450, RR 22, peep five, FiO2 30%) Completed new bronchoscopy 01/14/2024 since samples for culture and pathology. Aspiration pneumonia due to Gm +/- Bacteria. Secondary to Gastrografin study. Required endotracheal intubation on 01/14/2024 and bronchoscopy, Multiple pneumonia secondary to Enterobacter cloacae and Klebsiella Completed multiple courses of antibiotics, now on meropenem and Linezolid. Gastrointestinal Bowel obstruction secondary to sigmoid adenocarcinoma with hepatic metastasis - status post colectomy with terminal-terminal anastomosis Completed colectomy with terminal terminal anastomosis on 12/25/2023, with previous cardiological clearance. program production specialist on board. Pelvic abscess - status post drainage abdomen and pelvis CT with contrast which shows abscess and pelvic area. Exploratory laparotomy with evacuation of pelvic abscess done on 01/20/24, colostomy bag is placed. Two JONATHAN drains were placed to lower portion of abdomen, Hepatomegaly secondary to liver metastasis due to sigmoid adenocarcinoma Monitor CMP and coagulation Transaminitis Secondary to above Genitourinary/Nephrology History of multiple UTIs Last urine culture with no evidence of bacterial growth Metabolic Hypernatremia -Resolved Infectious Disease Septic shock probably secondary to aspiration pneumonia versus pelvic abscess - resolved Required maximum dose of vasopressors (four IV vasopressors). Currently with no IV vasopressors Completed multiple courses of antibiotic (febrile since tazobactam for two days, ceftriaxone for one day, vancomycin previously for 12 days, meropenem previously four 12 days) Multiple cultures completed, only positive 3 times sputum for Enterobacter cloacae (pelvic fluid, blood, and urine culture negative) Id specialist on board Persistent sepsis probably secondary to pelvic abscess Completed new abdomen and pelvis CT with contrast which evidence abscess and pelvic area. abscess drainage on 01/20/24 by the surgeon. Currently under empiric IV antibiotic (Linezolid and meropenem) Hematology Persistent leukocytosis Probably secondary to pelvic abscess Coagulopathy secondary to sepsis INR on 01/19/2024 approximately 1.57 We will hold enoxaparin and aspirin Nutrition: TPN, no enteral feeding until bowel motility evaluated (has to be cleared by offender job retention specialist) Prophylaxis for PUD and DVT: Currently on pantoprazole and SCDs Lines Left arm PICC line placed on 01/07/2024 New Davies catheter 01/14/2024 ET tube 01/14/2024 Drips Versed Fentanyl NE Bumex Abdomen and pelvis CT which evidence pelvic abscess. Exploratory laparotomy with evacuation of pelvic abscess done on 01/20/24, colostomy bag is placed. Two JONATHAN drains were placed to lower portion of abdomen, liver biopsy was done at the time. Critical Care time spent 57 minutes including, patient care, chart review and updating family, excluding procedure. code status : Full Code Case discussed with Dr Ojeda Plan discussed with: Other (RN) My Orders My Orders Orders - NICHOLE CANCINO RESIDENT Procedure Category Date Status Time Complete Blood Count LAB 01/23/24 Verified 04:00 Abg W/ Co-Ox RT 01/22/24 Logged 06:30 Dietary Evaluation Review Comments: 1) Advance pt diet when medically feasible to a Cardiac diet 2) Continue current plan of care Expected Outcomes/Goals: 1) F/U in 3-5 days Date of Service: Jan 22, 2024 Billing Provider: KATERINA OJEDA MD Common Visit Codes: 74919-[id number] CARE 30-74 MIN NICHOLE CANCINO RESIDENT Jan 22, 2024 07:46 KATERINA OJEDA MD Jan 25, 2024 15:12
[2024-01-22 09:49] LABS: Hemoglobin 7.5 g/dL (12.2-16.2); Platelet Count (auto) 431 10^3/uL (140-450)
[2024-01-22 09:52] LABS: Hematocrit 24.2 % (36.0-46.0); Mean Corpuscular Hemoglobin 25.6 pg (28.0-32.0); Mean Corpuscular Hgb Conc. 31.1 g/dL (32.0-36.0); Mean Corpuscular Volume 82.2 fL (80.0-100.0); Red Blood Cells 2.94 10^6/uL (4.0-5.20)
[2024-01-22 10:04] LABS: Red Cell Distribution Width 26.7 % (11.8-14.3)
[2024-01-22 10:05] LABS: White Blood Cell 33.6 10^3/uL (4.4-10.8)
[2024-01-22 10:06] LABS: Basophils % (manual) 0 (0.0-2.0); Blast Cells 0; Eosinophils % (manual) 0 (0-7); Metamyelocytes % 0; Myelocytes % 0; Promyelocytes % 0; Reactive Lymphocytes 0
--- NOTE | 2024-01-22 10:22 | DVHPN2 ---
Progress Note Date Seen: Jan 22, 2024 Medical Necessity Reason Pt with a Central, PICC or Fol: Yes The following are medically ne: PICC Line, Davies Catheter Reason for davies catheter: Strict I&O Objective vital signs Vital Sign Date Time Temp Pulse Resp B/P (MAP) Pulse Ox O2 Delivery O2 Flow Rate FiO2 01/22/24 10:08 85 26 108/51 (70) 96 30 01/22/24 09:45 96.4 205.5 01/22/24 08:00 Mechanical Ventilator+ Total Intake and Output 01/21/24 01/21/24 01/22/24 15:00 23:00 07:00 Intake Total 894.90 ml 679.290 ml 1069.504 ml Output Total 755 ml 725 ml Balance 894.90 ml -75.710 ml 344.504 ml medications Current Medications Medications Dose Ordered Sig/Saige Route Start Time Stop Time Status Last Admin Dose Admin Nitroglycerin 0.4 mg Q5MINP PRN SL 12/25/23 16:00 Pantoprazole Sodium 40 mg DAILY IV 12/26/23 10:00 01/22/24 09:25 40 MG Ipratropium [place] 0.5 mg Q6HR NEB 12/27/23 18:00 Cancel Amino Acids 0 ml @ 0 mls/hr PER PHARMACY IV 12/28/23 12:00 Diagnostic Test (Pha) 1 strip Q6HR 12/28/23 18:00 01/22/24 05:46 1 STRIP Insulin Human Regular FOLLOW SLIDING SCALE Q6HR SC 12/28/23 18:00 01/22/24 05:54 2 UNITS Dextrose 50 ml UD IV 12/28/23 13:00 Sodium Chloride 10 ml QSHIFT@10,22 IV 01/05/24 22:00 01/22/24 09:27 10 ML Enoxaparin Sodium 40 mg DAILY SC 01/13/24 10:00 Hold 01/14/24 12:50 40 MG Acetaminophen 1,000 mg Q8HP PRN IV 01/13/24 18:00 01/14/24 03:47 1,000 MG Meropenem 50 ml @ 17 mls/hr Q8H IV 01/14/24 20:00 01/22/24 03:46 17 MLS/HR Lorazepam 0.5 mg Q6HP PRN IV 01/14/24 16:45 Ipratropium [place] 0.5 mg Q6HPRN PRN NEB 01/14/24 18:30 01/22/24 06:12 0.5 MG Fentanyl Citrate 250 ml @ 2.5 mls/hr Q24H IV 01/14/24 19:30 01/22/24 06:48 30 MLS/HR Aspirin 81 mg DAILY PO 01/15/24 10:00 Hold Midazolam HCl 50 ml @ 1 mls/hr Q24H IV 01/14/24 20:00 01/22/24 09:25 14 MLS/HR Furosemide 100 mg/ Sodium Chloride 110 ml @ 11 mls/hr Q10H IV 01/17/24 13:30 Hold Norepinephrine Bitartrate 32 mg/ Sodium Chloride 250 ml @ 0.938 mls/ hr Q24H IV 01/17/24 13:45 01/21/24 15:02 1.875 MLS/HR Micafungin Sodium 100 mg/Sodium Chloride 100 ml @ 100 mls/hr DAILY IV 01/18/24 10:00 01/22/24 09:26 100 MLS/HR Linezolid 300 ml @ 150 mls/hr Q12HR IV 01/18/24 10:00 01/22/24 09:26 150 MLS/HR Bumetanide 25 mg/ Miscellaneous 100 ml @ 2 mls/hr Q24H IV 01/20/24 14:45 01/21/24 12:32 2 MLS/HR Fat Emulsion Intravenous 50 ml/ Potassium Acetate 60 meq/Magnesium Sulfate 6 meq/ Multivitamins 10 ml/Amino Acids/ Dextrose 1,041.5 ml @ 43 mls/hr [id number] IV 01/21/24 22:00 01/22/24 21:59 01/21/24 22:06 43 MLS/HR Fat Emulsion Intravenous 50 ml/ Potassium Acetate 30 meq/Magnesium Sulfate 4 meq/ Multivitamins 10 ml/Amino Acids/ Dextrose 1,026 ml @ 42 mls/hr [id number] IV 01/22/24 22:00 01/23/24 21:59 laboratory and microbiology Laboratory Tests 01/22/24 09:25 01/22/24 04:05 Test 01/22/24 04:05 Range/Units Serum Glucose 137 H 74-106 mg/dL Problem List/Assessment/Plan Problem List/Assessment/Plan 01/06/[address] Aditi BUCKLEY, ABDOMEN APPEARS TO BE TENDER IN THE LEFT LOWER QUADRANT, WOUND IS CLEAN AND WELL APPROXIMATED, DRAINAGE FROM LOWER PORTION OF MIDLINE WOUND.AWAITING ir intervention 01/07/24 essentially unchanged, continues hypotensive with leukocytosis, abdomen "full", no BM or flatus reported, spoke to interventional radiologist, he will proceed with drainage of pelvic fluid collection via transgluteal approach 01/08/24 slightly improved, discussed pelvic fluid drainage with radiologist,abdomen soft, non distended, continue current treatments 01/09/24 slightly improved, abdomen less tense, wound clean ,drainage clear, good urine output, less pressors requirement 01/10/24 wbc slightly better, wound ok, abdomen soft and non distended, no BM, will add reglan, once she passes flatus NG tube can be DC'd 01/11/24 'S QUESTIONS ANSWERED, SHE CONTINUES UNCHANGED, WOUND CLEAN ,ABDOMEN NON DISTENDED 01/12/24 abdomen non distended, appears non tender()pt awakens), wound clean and well approximated, undergoing CPAP trial 01/14/24 abdomen benign, sepsis persists, will get gastrografin small bowel series in hope of starting po intake 01/15/24 patient aspirated yesterday and was re intubated, there is what appears a large fluid collection/abscess in the pelvis which could be due to an anastomotic colon leak, I thoroughly explained to (patient sedated) that if radiologist not available to do a ct guided aspiration, she would need an operation to drain the pelvic abscess and could end up with a colostomy. I showed the patient's CT scan images to the and explained that the liver is essentially replaced with what appears to be malignant deposits. I told him to "think hard about what would his want" if she were able to make a decision for her self in this situation. 01/17/24 apparently no radiologist is on premiss till Friday, not at bedside this morning, patient essentially clinically unchanged, will wait to hear from patient's about family's wishes 01/19/24 radiologist not able to do percutaneous drainage patient continues to be septic, will proceed with operation Friday . operation, colostomy etc, previously explained to patient's who left a message with patient's nurse that he wished tyo proceed with the operation even though I explained to him that the patient will ultimately probably of her cancer 01/21/24 sedated, on mechanical ventilator, essentially unchanged from pre op condition, abdomen non distended, wound dressing clean, scotty drainage non sanguineous, stoma viable without function. 01/22/24 anasarca, wound clean and well approximated, urine output adequate, abdomen non distended. BP improved Plan discussed with: Other Dietary Evaluation Review Comments: 1) Advance pt diet when medically feasible to a Cardiac diet 2) Continue current plan of care Expected Outcomes/Goals: 1) F/U in 3-5 days ASPEN EUBANKS MD Jan 22, 2024 10:22
[2024-01-22 11:19] LABS: Band Neutrophils % (manual) 2; Lymphocytes % (manual) 1 (10.0-50.0); Monocytes % (manual) 5 (0-12)
[2024-01-22 11:20] LABS: Anisocytosis Slight; Target Cell FEW
[2024-01-22 11:21] LABS: Platelet Estimate Adequate
--- NOTE | 2024-01-22 11:36 | DVHPN2 ---
Progress Note - Dictate Date Seen: Jan 22, 2024 Medical Necessity Reason Pt with a Central, PICC or Fol: Yes The following are medically ne: PICC Line, Davies Catheter Reason for davies catheter: Strict I&O Subjective Patient was seen and examined at bedside. She is sedated, intubated on mechanical ventilator. WBC trending down, currently at 33.6 Antibiotic status: Vancomycin HCl 200 ml @ 200 mls/hr - [Started 12/31 - 01/15] Linezolid [ started 01/17 - Ongoing] Meropenem 50 ml @ 17 mls/hr - [Started - 01/02 - stopped] ; restarted 01/13 - Ongoing vital signs Vital Sign Date Time Temp Pulse Resp B/P (MAP) Pulse Ox O2 Delivery O2 Flow Rate FiO2 01/22/24 10:30 96.4 84 26 107/51 (69) 96 205.5 01/22/24 10:08 30 01/22/24 10:00 Mechanical Ventilator+ Total Intake and Output 01/21/24 01/21/24 01/22/24 15:00 23:00 07:00 Intake Total 894.90 ml 679.290 ml 1069.504 ml Output Total 755 ml 725 ml Balance 894.90 ml -75.710 ml 344.504 ml medications Current Medications Medications Dose Ordered Sig/Saige Route Start Time Stop Time Status Last Admin Dose Admin Nitroglycerin 0.4 mg Q5MINP PRN SL 12/25/23 16:00 Pantoprazole Sodium 40 mg DAILY IV 12/26/23 10:00 01/22/24 09:25 40 MG Ipratropium [place] 0.5 mg Q6HR NEB 12/27/23 18:00 Cancel Amino Acids 0 ml @ 0 mls/hr PER PHARMACY IV 12/28/23 12:00 Diagnostic Test (Pha) 1 strip Q6HR 12/28/23 18:00 01/22/24 05:46 1 STRIP Insulin Human Regular FOLLOW SLIDING SCALE Q6HR SC 12/28/23 18:00 01/22/24 05:54 2 UNITS Dextrose 50 ml UD IV 12/28/23 13:00 Sodium Chloride 10 ml QSHIFT@10,22 IV 01/05/24 22:00 01/22/24 09:27 10 ML Enoxaparin Sodium 40 mg DAILY SC 01/13/24 10:00 Hold 01/14/24 12:50 40 MG Acetaminophen 1,000 mg Q8HP PRN IV 01/13/24 18:00 01/14/24 03:47 1,000 MG Meropenem 50 ml @ 17 mls/hr Q8H IV 01/14/24 20:00 01/22/24 03:46 17 MLS/HR Ipratropium [place] 0.5 mg Q6HPRN PRN NEB 01/14/24 18:30 01/22/24 06:12 0.5 MG Fentanyl Citrate 250 ml @ 2.5 mls/hr Q24H IV 01/14/24 19:30 01/22/24 06:48 30 MLS/HR Midazolam HCl 50 ml @ 1 mls/hr Q24H IV 01/14/24 20:00 01/22/24 09:25 14 MLS/HR Norepinephrine Bitartrate 32 mg/ Sodium Chloride 250 ml @ 0.938 mls/ hr Q24H IV 01/17/24 13:45 01/21/24 15:02 1.875 MLS/HR Micafungin Sodium 100 mg/Sodium Chloride 100 ml @ 100 mls/hr DAILY IV 01/18/24 10:00 01/22/24 09:26 100 MLS/HR Linezolid 300 ml @ 150 mls/hr Q12HR IV 01/18/24 10:00 01/22/24 09:26 150 MLS/HR Bumetanide 25 mg/ Miscellaneous 100 ml @ 2 mls/hr Q24H IV 01/20/24 14:45 01/21/24 12:32 2 MLS/HR Fat Emulsion Intravenous 50 ml/ Potassium Acetate 60 meq/Magnesium Sulfate 6 meq/ Multivitamins 10 ml/Amino Acids/ Dextrose 1,041.5 ml @ 43 mls/hr [id number] IV 01/21/24 22:00 01/22/24 21:59 01/21/24 22:06 43 MLS/HR Fat Emulsion Intravenous 50 ml/ Potassium Acetate 30 meq/Magnesium Sulfate 4 meq/ Multivitamins 10 ml/Amino Acids/ Dextrose 1,026 ml @ 42 mls/hr [id number] IV 01/22/24 22:00 01/23/24 21:59 objective General.: Patient lying in bed in medical ICU. Sedated, intubated on mechanical ventilator. Head: Normocephalic, atraumatic. Eyes: PERRLA. Ears: Normal external anatomy. Throat: Endotracheal tube and orogastric tube in place. Neck: Supple, trachea midline. Chest: Transmitted breath sounds bilaterally. Decreased air entry bilaterally. No wheezing. Bibasilar crackles. Cardiovascular: Positive S1, positive S2. Regular rate and rhythm. Abdomen: s/p ex lap, JONATHAN drain +, stoma + : Davies in place. Normal external genitalia. Skin: Warm, dry. Intact. Extremities: 2+ radial pulses bilaterally. +4 pitting edema. Neuro: Sedated. laboratory and microbiology Laboratory Tests 01/22/24 09:25 01/22/24 04:05 Test 01/22/24 04:05 Range/Units Serum Glucose 137 H 74-106 mg/dL Assessment/Plan Patient is a 64-year-old female presents to the hospital with: Pelvic abscess; colon leak septic shock vs distributive shock leucocytosis Ventilator associated Pneumonia : [place] large bowel obstruction s/p colectomy s/p end to end anastomosis 12/24 possible colon cancer with mets ascites: malignant vs post surgical vs infection Liver mets acute hypoxic respiratory failure on mechanical ventilation CHF anasarca Recommendations: repeat Ct abdomen and pelvis shows large collection, concern fo colon leak/ abscess s/p Ex lap, 01/19. OR cx sent. wbc trending high ; trend on pressors broad spectrum antibiotics continue Vancomycin [was stopped on 01/17] cont Zyvox , micafungin and meropenem OR cx 01/19, Aerobic and Anaerobic culture: prelim negative ; follow cultures review 01/06: body fluid cultures : few WBC seen , no organisms 01/05, Blood culture: No growth 01/05, Urine culture: No growth 01/04, Aerobic culture: No growth 12/29 : sputum culture notable for Enterobacter cloacae. CT pelvic wo contrast done on 01/06 : CT guided needle/catheter placement into the low pelvic fluid collection with aspiration of 1-2 mL of yellow serous fluid. overall prognosis is very poor with mets, plus worsening sepsis. consider goals of care discussion. crit time 35 minutes spent in co-ordination of care Thank you for the consult and for giving an opportunity to take care of this patient. Dietary Evaluation Review Comments: 1) Advance pt diet when medically feasible to a Cardiac diet 2) Continue current plan of care Expected Outcomes/Goals: 1) F/U in 3-5 days Plan discussed with: JASPREET Galvan MD Jan 22, 2024 11:36
--- NOTE | 2024-01-22 15:36 | DVHPN2 ---
Progress Note - Dictate Date Seen: Jan 22, 2024 Medical Necessity Reason Pt with a Central, PICC or Fol: Yes The following are medically ne: PICC Line, Davies Catheter Reason for davies catheter: Strict I&O Subjective remains intubated vital signs Vital Sign Date Time Temp Pulse Resp B/P (MAP) Pulse Ox O2 Delivery O2 Flow Rate FiO2 01/22/24 15:02 113/53 01/22/24 14:30 97.0 83 26 98 206.6 01/22/24 14:09 30 01/22/24 14:00 Mechanical Ventilator+ Total Intake and Output 01/21/24 01/21/24 01/22/24 15:00 23:00 07:00 Intake Total 894.90 ml 679.290 ml 1069.504 ml Output Total 755 ml 725 ml Balance 894.90 ml -75.710 ml 344.504 ml medications Current Medications Medications Dose Ordered Sig/Saige Route Start Time Stop Time Status Last Admin Dose Admin Nitroglycerin 0.4 mg Q5MINP PRN SL 12/25/23 16:00 Pantoprazole Sodium 40 mg DAILY IV 12/26/23 10:00 01/22/24 09:25 40 MG Ipratropium [place] 0.5 mg Q6HR NEB 12/27/23 18:00 Cancel Amino Acids 0 ml @ 0 mls/hr PER PHARMACY IV 12/28/23 12:00 Diagnostic Test (Pha) 1 strip Q6HR 12/28/23 18:00 01/22/24 11:58 1 STRIP Insulin Human Regular FOLLOW SLIDING SCALE Q6HR SC 12/28/23 18:00 01/22/24 12:01 2 UNITS Dextrose 50 ml UD IV 12/28/23 13:00 Sodium Chloride 10 ml QSHIFT@10,22 IV 01/05/24 22:00 01/22/24 09:27 10 ML Enoxaparin Sodium 40 mg DAILY SC 01/13/24 10:00 Hold 01/14/24 12:50 40 MG Acetaminophen 1,000 mg Q8HP PRN IV 01/13/24 18:00 01/14/24 03:47 1,000 MG Meropenem 50 ml @ 17 mls/hr Q8H IV 01/14/24 20:00 01/22/24 12:03 17 MLS/HR Ipratropium [place] 0.5 mg Q6HPRN PRN NEB 01/14/24 18:30 01/22/24 06:12 0.5 MG Fentanyl Citrate 250 ml @ 2.5 mls/hr Q24H IV 01/14/24 19:30 01/22/24 15:02 30 MLS/HR Midazolam HCl 50 ml @ 1 mls/hr Q24H IV 01/14/24 20:00 01/22/24 13:04 14 MLS/HR Norepinephrine Bitartrate 32 mg/ Sodium Chloride 250 ml @ 0.938 mls/ hr Q24H IV 01/17/24 13:45 01/21/24 15:02 1.875 MLS/HR Micafungin Sodium 100 mg/Sodium Chloride 100 ml @ 100 mls/hr DAILY IV 01/18/24 10:00 01/22/24 09:26 100 MLS/HR Linezolid 300 ml @ 150 mls/hr Q12HR IV 01/18/24 10:00 01/22/24 09:26 150 MLS/HR Bumetanide 25 mg/ Miscellaneous 100 ml @ 2 mls/hr Q24H IV 01/20/24 14:45 01/21/24 12:32 2 MLS/HR Fat Emulsion Intravenous 50 ml/ Potassium Acetate 60 meq/Magnesium Sulfate 6 meq/ Multivitamins 10 ml/Amino Acids/ Dextrose 1,041.5 ml @ 43 mls/hr [id number] IV 01/21/24 22:00 01/22/24 21:59 01/21/24 22:06 43 MLS/HR Fat Emulsion Intravenous 50 ml/ Potassium Acetate 30 meq/Magnesium Sulfate 4 meq/ Multivitamins 10 ml/Amino Acids/ Dextrose 1,026 ml @ 42 mls/hr [id number] IV 01/22/24 22:00 01/23/24 21:59 objective Elderly white female Intubated Not on pressors Bilateral pitting edema severe Anasarca Davies catheter laboratory and microbiology Laboratory Tests 01/22/24 09:25 01/22/24 04:05 Test 01/22/24 04:05 Range/Units Serum Glucose 137 H 74-106 mg/dL Assessment/Plan Acute kidney injury due to hemodynamic mediated 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 Not candidate for detention dialysis Dietary Evaluation Review Comments: 1) Advance pt diet when medically feasible to a Cardiac diet 2) Continue current plan of care Expected Outcomes/Goals: 1) F/U in 3-5 days Plan discussed with: Other Critical Care Time(min): 34 MACI JENSEN MD Jan 22, 2024 15:36
[2024-01-22] MEDS: TPN PER PHARMACY IV NR (21:54)
[2024-01-23] VITALS (108 sets, daily range): BP systolic 95–148; BP diastolic 38–64; PULSE 83–100; RESP 16–41; TEMP 96.8–99.7; O2SAT 94–100
[2024-01-23 03:58] LABS: Red Blood Cells 3.07 10^6/uL (4.0-5.20)
[2024-01-23 04:01] LABS: Hematocrit 25.8 % (36.0-46.0); Mean Corpuscular Hgb Conc. 30.9 g/dL (32.0-36.0); Mean Corpuscular Volume 84.1 fL (80.0-100.0); Platelet Count (auto) 418 10^3/uL (140-450)
[2024-01-23 04:03] LABS: Anion Gap 11 (5-15); BUN/Creatinine Ratio 82.2 (10.0-20.0); Carbon Dioxide 23 mmol/L (20-31); Magnesium 2.4 mg/dL (1.6-2.6); Potassium 4.7 mmol/L (3.5-5.1); Sodium 143 mmol/L (136-145)
[2024-01-23 04:20] LABS: Alanine Aminotransferase 135 U/L (7-40); Albumin 2.5 g/dL (3.2-4.8); Alkaline Phosphatase 279 U/L (46-116); Aspartate Aminotransferase 272 U/L (13-40); Bilirubin, Total 4.1 mg/dL (0.2-1.0); Blood Urea Nitrogen 74 mg/dL (9-23); Calcium 8.4 mg/dL (8.7-10.4); Chloride 109 mmol/L (98-107); Glucose 146 mg/dL (74-106); Phosphorus 5.7 mg/dL (2.4-5.1); Total Protein 5.5 g/dL (5.7-8.2)
[2024-01-23 04:47] LABS: Red Cell Distribution Width 26.8 % (11.8-14.3); White Blood Cell 30.6 10^3/uL (4.4-10.8)
[2024-01-23 04:48] LABS: Band Neutrophils % (manual) 0; Basophils % (manual) 0 (0.0-2.0); Blast Cells 0; Eosinophils % (manual) 0 (0-7); Metamyelocytes % 0; Myelocytes % 0; Promyelocytes % 0; Reactive Lymphocytes 0
[2024-01-23 05:21] LABS: Lymphocytes % (manual) 4 (10.0-50.0); Monocytes % (manual) 5 (0-12)
[2024-01-23 05:22] LABS: Large Platelets FEW; Ovalocytes FEW
[2024-01-23 05:24] LABS: Platelet Estimate Adequa; Target Cell FEW
--- NOTE | 2024-01-23 05:32 | DVH ---
CHEST RADIOGRAPH Indication: ET intubation Technique: Single frontal view of the chest was obtained Comparison: XY CHEST XRAY 1 VIEW on DOS: 01/22/24 FINDINGS: Lines and Tubes: The endotracheal tube terminates 4.0cm above the nany. The enteric tube courses b elow the left hemidiaphragm and the tip extends outside the field of view. Pacemaker noted. Lungs: Mild pulmonary congestion. Right lower lobe opacity. Pleura: No effusion. No pneumothorax. Cardiomediastinal contours: Unremarkable Bones: No acute osseous abnormality. IMPRESSION: 1. Endotracheal tube terminates 4.0 cm above the nany. 2. Pulmonary vascular congestion. Right lower lobe opacity.
[2024-01-23 07:48] LABS: Base Excess -3.1 mmol/L (-2.0-3.0)
--- NOTE | 2024-01-23 14:57 | DVHPN2 ---
Progress Note - Dictate Date Seen: Jan 23, 2024 Medical Necessity Reason Pt with a Central, PICC or Fol: Yes The following are medically ne: PICC Line, Davies Catheter Reason for davies catheter: Strict I&O Subjective Patient was seen and examined at bedside. She is sedated, intubated on mechanical ventilator. WBC is elevated at 30.0. Patient is not on any steroids currently. Antibiotic status: Vancomycin HCl 200 ml @ 200 mls/hr - [Started 12/31 - 01/15] Linezolid [ started 01/17 - Ongoing] Meropenem 50 ml @ 17 mls/hr - [Started - 01/02 - stopped] ; restarted 01/13 - Ongoing vital signs Vital Sign Date Time Temp Pulse Resp B/P (MAP) Pulse Ox O2 Delivery O2 Flow Rate FiO2 01/23/24 14:16 93 28 123/51 (75) 98 30 01/23/24 14:00 Mechanical Ventilator+ 01/23/24 06:45 97.3 207.1 Total Intake and Output 01/22/24 01/22/24 01/23/24 15:00 23:00 07:00 Intake Total 1330.504 ml 1053.504 ml 622.566 ml Output Total 800 ml 645 ml Balance 1330.504 ml 253.504 ml -22.434 ml medications Current Medications Medications Dose Ordered Sig/Saige Route Start Time Stop Time Status Last Admin Dose Admin Nitroglycerin 0.4 mg Q5MINP PRN SL 12/25/23 16:00 Pantoprazole Sodium 40 mg DAILY IV 12/26/23 10:00 01/23/24 10:20 40 MG Ipratropium [place] 0.5 mg Q6HR NEB 12/27/23 18:00 Cancel Amino Acids 0 ml @ 0 mls/hr PER PHARMACY IV 12/28/23 12:00 Diagnostic Test (Pha) 1 strip Q6HR 12/28/23 18:00 01/23/24 13:33 1 STRIP Insulin Human Regular FOLLOW SLIDING SCALE Q6HR SC 12/28/23 18:00 01/23/24 13:33 2 UNITS Dextrose 50 ml UD IV 12/28/23 13:00 Sodium Chloride 10 ml QSHIFT@10,22 IV 01/05/24 22:00 01/23/24 10:20 10 ML Enoxaparin Sodium 40 mg DAILY SC 01/13/24 10:00 Hold 01/14/24 12:50 40 MG Acetaminophen 1,000 mg Q8HP PRN IV 01/13/24 18:00 01/14/24 03:47 1,000 MG Meropenem 50 ml @ 17 mls/hr Q8H IV 01/14/24 20:00 01/23/24 13:33 17 MLS/HR Ipratropium [place] 0.5 mg Q6HPRN PRN NEB 01/14/24 18:30 01/22/24 06:12 0.5 MG Fentanyl Citrate 250 ml @ 2.5 mls/hr Q24H IV 01/14/24 19:30 01/23/24 07:54 30 MLS/HR Midazolam HCl 50 ml @ 1 mls/hr Q24H IV 01/14/24 20:00 01/23/24 13:34 14 MLS/HR Norepinephrine Bitartrate 32 mg/ Sodium Chloride 250 ml @ 0.938 mls/ hr Q24H IV 01/17/24 13:45 01/21/24 15:02 1.875 MLS/HR Micafungin Sodium 100 mg/Sodium Chloride 100 ml @ 100 mls/hr DAILY IV 01/18/24 10:00 01/23/24 10:21 100 MLS/HR Linezolid 300 ml @ 150 mls/hr Q12HR IV 01/18/24 10:00 01/22/24 21:53 150 MLS/HR Bumetanide 25 mg/ Miscellaneous 100 ml @ 2 mls/hr Q24H IV 01/20/24 14:45 01/22/24 22:53 2 MLS/HR Fat Emulsion Intravenous 50 ml/ Potassium Acetate 30 meq/Magnesium Sulfate 4 meq/ Multivitamins 10 ml/Amino Acids/ Dextrose 1,026 ml @ 42 mls/hr [id number] IV 01/22/24 22:00 01/23/24 21:59 01/22/24 21:54 42 MLS/HR Fat Emulsion Intravenous 50 ml/ Magnesium Sulfate 2 meq/ Multivitamins 10 ml/Amino Acids/ Dextrose 1,010.5 ml @ 42 mls/hr Q24H4M IV 01/23/24 22:00 01/24/24 21:59 objective General.: Patient lying in bed in medical ICU. Sedated, intubated on mechanical ventilator. Head: Normocephalic, atraumatic. Eyes: PERRLA. Ears: Normal external anatomy. Throat: Endotracheal tube and orogastric tube in place. Neck: Supple, trachea midline. Chest: Transmitted breath sounds bilaterally. Decreased air entry bilaterally. No wheezing. Bibasilar crackles. Cardiovascular: Positive S1, positive S2. Regular rate and rhythm. Abdomen: s/p ex lap, JONATHAN drain +, stoma + : Davies in place. Normal external genitalia. Skin: Warm, dry. Intact. Extremities: 2+ radial pulses bilaterally. +4 pitting edema. Neuro: Sedated. laboratory and microbiology Laboratory Tests 01/23/24 03:11 Test 01/23/24 03:11 Range/Units Serum Glucose 146 H 74-106 mg/dL Assessment/Plan Patient is a 64-year-old female presents to the hospital with: Pelvic abscess; colon leak septic shock vs distributive shock leucocytosis Ventilator associated Pneumonia : [place] large bowel obstruction s/p colectomy s/p end to end anastomosis 12/24 possible colon cancer with mets ascites: malignant vs post surgical vs infection Liver mets acute hypoxic respiratory failure on mechanical ventilation CHF anasarca Recommendations: repeat Ct abdomen and pelvis shows large collection, concern fo colon leak/ abscess s/p Ex lap, 01/19. OR cx sent. prelim no growth wbc trending high ; trend on pressors broad spectrum antibiotics continue Vancomycin [was stopped on 01/17] cont Zyvox , micafungin and meropenem; will plan for 5-7 days since surgery. OR cx 01/19, Aerobic and Anaerobic culture: prelim negative ; follow cultures review 01/06: body fluid cultures : few WBC seen , no organisms 01/05, Blood culture: No growth 01/05, Urine culture: No growth 01/04, Aerobic culture: No growth 12/29 : sputum culture notable for Enterobacter cloacae. CT pelvic wo contrast done on 01/06 : CT guided needle/catheter placement into the low pelvic fluid collection with aspiration of 1-2 mL of yellow serous fluid. overall prognosis is very poor with mets, plus worsening sepsis. consider goals of care discussion. crit time 35 minutes spent in co-ordination of care Thank you for the consult and for giving an opportunity to take care of this patient. Dietary Evaluation Review Comments: 1) Advance pt diet when medically feasible to a Cardiac diet 2) Continue current plan of care Expected Outcomes/Goals: 1) F/U in 3-5 days Plan discussed with: JASPREET Galvan MD Jan 23, 2024 14:57
--- NOTE | 2024-01-23 16:12 | DVHPN2 ---
Progress Note - Dictate Date Seen: Jan 23, 2024 Medical Necessity Reason Pt with a Central, PICC or Fol: Yes The following are medically ne: PICC Line, Davies Catheter Reason for davies catheter: Strict I&O Subjective Clinically unchanged vital signs Vital Sign Date Time Temp Pulse Resp B/P (MAP) Pulse Ox O2 Delivery O2 Flow Rate FiO2 01/23/24 15:00 99.0 91 25 116/49 (71) 98 210.2 01/23/24 14:16 30 01/23/24 14:00 Mechanical Ventilator+ Total Intake and Output 01/22/24 01/22/24 01/23/24 15:00 23:00 07:00 Intake Total 1330.504 ml 1053.504 ml 710.566 ml Output Total 800 ml 645 ml Balance 1330.504 ml 253.504 ml 65.566 ml medications Current Medications Medications Dose Ordered Sig/Saige Route Start Time Stop Time Status Last Admin Dose Admin Nitroglycerin 0.4 mg Q5MINP PRN SL 12/25/23 16:00 Pantoprazole Sodium 40 mg DAILY IV 12/26/23 10:00 01/23/24 10:20 40 MG Ipratropium [place] 0.5 mg Q6HR NEB 12/27/23 18:00 Cancel Amino Acids 0 ml @ 0 mls/hr PER PHARMACY IV 12/28/23 12:00 Diagnostic Test (Pha) 1 strip Q6HR 12/28/23 18:00 01/23/24 13:33 1 STRIP Insulin Human Regular FOLLOW SLIDING SCALE Q6HR SC 12/28/23 18:00 01/23/24 13:33 2 UNITS Dextrose 50 ml UD IV 12/28/23 13:00 Sodium Chloride 10 ml QSHIFT@10,22 IV 01/05/24 22:00 01/23/24 10:20 10 ML Enoxaparin Sodium 40 mg DAILY SC 01/13/24 10:00 Hold 01/14/24 12:50 40 MG Acetaminophen 1,000 mg Q8HP PRN IV 01/13/24 18:00 01/14/24 03:47 1,000 MG Meropenem 50 ml @ 17 mls/hr Q8H IV 01/14/24 20:00 01/23/24 13:33 17 MLS/HR Ipratropium [place] 0.5 mg Q6HPRN PRN NEB 01/14/24 18:30 01/22/24 06:12 0.5 MG Fentanyl Citrate 250 ml @ 2.5 mls/hr Q24H IV 01/14/24 19:30 01/23/24 07:54 30 MLS/HR Midazolam HCl 50 ml @ 1 mls/hr Q24H IV 01/14/24 20:00 01/23/24 13:34 14 MLS/HR Norepinephrine Bitartrate 32 mg/ Sodium Chloride 250 ml @ 0.938 mls/ hr Q24H IV 01/17/24 13:45 01/21/24 15:02 1.875 MLS/HR Micafungin Sodium 100 mg/Sodium Chloride 100 ml @ 100 mls/hr DAILY IV 01/18/24 10:00 01/23/24 10:21 100 MLS/HR Linezolid 300 ml @ 150 mls/hr Q12HR IV 01/18/24 10:00 01/22/24 21:53 150 MLS/HR Bumetanide 25 mg/ Miscellaneous 100 ml @ 2 mls/hr Q24H IV 01/20/24 14:45 01/22/24 22:53 2 MLS/HR Fat Emulsion Intravenous 50 ml/ Potassium Acetate 30 meq/Magnesium Sulfate 4 meq/ Multivitamins 10 ml/Amino Acids/ Dextrose 1,026 ml @ 42 mls/hr [id number] IV 01/22/24 22:00 01/23/24 21:59 01/22/24 21:54 42 MLS/HR Fat Emulsion Intravenous 50 ml/ Magnesium Sulfate 2 meq/ Multivitamins 10 ml/Amino Acids/ Dextrose 1,010.5 ml @ 42 mls/hr Q24H4M IV 01/23/24 22:00 01/24/24 21:59 objective Gen: nad heent: nc/at, + ETT lungs: Patient Rhonchi cvs: no rub ext: no edema laboratory and microbiology Laboratory Tests 01/23/24 03:11 Test 01/23/24 03:11 Range/Units Serum Glucose 146 H 74-106 mg/dL Assessment/Plan Acute kidney injury due to hemodynamic mediated 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 Not candidate for [facility] dialysis We will continue to follow Dietary Evaluation Review Comments: 1) Advance pt diet when medically feasible to a Cardiac diet 2) Continue current plan of care Expected Outcomes/Goals: 1) F/U in 3-5 days Plan discussed with: Other SALENA SILVA MD Jan 23, 2024 16:12
[2024-01-23] MEDS: NOREPINEPHRINE BITARTRATE 32 MG in D5W 5% 218 ML IV SCH (16:30)
--- NOTE | 2024-01-23 16:51 | DVHPNRES ---
Progress Note Date Seen: Jan 23, 2024 Resident Creating Document: NICHOLE CANCINO RESIDENT Medical Necessity Reason Pt with a Central, PICC or Fol: Yes The following are medically ne: PICC Line, Davies Catheter Reason for davies catheter: Strict I&O Subjective Review of Systems A 63-year-old female patient with PMHx of systolic heart failure status post Med[employer] ICD placement -last EF 35% in September2023, CAD status post 4 RYAN in January 2018 , dyslipidemia, recurrent UTIs and pyelonephritis for the past 4 months, hypertension and internal hemorrhoids presented to the ER with a chief complaint of suprapubic abdominal pain and constipation. Patient recently visited [facility] in August this year with her when she went to the [place] barefoot and had bite dong all over the body, following which she has been getting recurrent UTIs and pyelonephritis starting September, also reports dry cough since the visit. She reports that the abdominal pain started 12/10 and is associated with tenesmus, she only passes small pellet-like stools associated with mucus and a lot of flatus. Also reports history of internal hemorrhoids and that she is experiencing bright red bleed per rectum for the past few days. She denies lifetime history of colonoscopy/endoscopy. Reports nausea, chills on and off but no fever. Denies lifetime history of STI, is monogamous with the . Her did not get any symptoms after the trip. PCP Jodie Rico Past surgical history; Partial hysterectomy Family history: Unremarkable Social history: Lives with , denies smoking, drank heavily during the vacation - quit since, denies illicit drug Patient seen and examined at bedside. Abdomen and pelvis CT which evidence pelvic abscess. Exploratory laparotomy with evacuation of pelvic abscess done on 01/20/24, colostomy bag is placed. Two JONATHAN drains were placed to lower portion of abdomen, liver biopsy was done at the time. Objective vital signs Vital Sign Date Time Temp Pulse Resp B/P (MAP) Pulse Ox O2 Delivery O2 Flow Rate FiO2 01/23/24 16:24 91 28 123/57 (79) 98 30 01/23/24 15:00 99.0 210.2 01/23/24 14:00 Mechanical Ventilator+ Total Intake and Output 01/22/24 01/22/24 01/23/24 15:00 23:00 07:00 Intake Total 1330.504 ml 1053.504 ml 710.566 ml Output Total 800 ml 645 ml Balance 1330.504 ml 253.504 ml 65.566 ml medications Current Medications Medications Dose Ordered Sig/Saige Route Start Time Stop Time Status Last Admin Dose Admin Nitroglycerin 0.4 mg Q5MINP PRN SL 12/25/23 16:00 Pantoprazole Sodium 40 mg DAILY IV 12/26/23 10:00 01/23/24 10:20 40 MG Ipratropium [place] 0.5 mg Q6HR NEB 12/27/23 18:00 Cancel Amino Acids 0 ml @ 0 mls/hr PER PHARMACY IV 12/28/23 12:00 Diagnostic Test (Pha) 1 strip Q6HR 12/28/23 18:00 01/23/24 13:33 1 STRIP Insulin Human Regular FOLLOW SLIDING SCALE Q6HR SC 12/28/23 18:00 01/23/24 13:33 2 UNITS Dextrose 50 ml UD IV 12/28/23 13:00 Sodium Chloride 10 ml QSHIFT@ IV 01/05/24 22:00 01/23/24 10:20 10 ML Enoxaparin Sodium 40 mg DAILY SC 01/13/24 10:00 Hold 01/14/24 12:50 40 MG Acetaminophen 1,000 mg Q8HP PRN IV 01/13/24 18:00 01/14/24 03:47 1,000 MG Meropenem 50 ml @ 17 mls/hr Q8H IV 01/14/24 20:00 01/23/24 13:33 17 MLS/HR Ipratropium [place] 0.5 mg Q6HPRN PRN NEB 01/14/24 18:30 01/22/24 06:12 0.5 MG Fentanyl Citrate 250 ml @ 2.5 mls/hr Q24H IV 01/14/24 19:30 01/23/24 07:54 30 MLS/HR Midazolam HCl 50 ml @ 1 mls/hr Q24H IV 01/14/24 20:00 01/23/24 13:34 14 MLS/HR Micafungin Sodium 100 mg/Sodium Chloride 100 ml @ 100 mls/hr DAILY IV 01/18/24 10:00 01/23/24 10:21 100 MLS/HR Linezolid 300 ml @ 150 mls/hr Q12HR IV 01/18/24 10:00 01/22/24 21:53 150 MLS/HR Bumetanide 25 mg/ Miscellaneous 100 ml @ 2 mls/hr Q24H IV 01/20/24 14:45 01/22/24 22:53 2 MLS/HR Fat Emulsion Intravenous 50 ml/ Potassium Acetate 30 meq/Magnesium Sulfate 4 meq/ Multivitamins 10 ml/Amino Acids/ Dextrose 1,026 ml @ 42 mls/hr [id number] IV 01/22/24 22:00 01/23/24 21:59 01/22/24 21:54 42 MLS/HR Fat Emulsion Intravenous 50 ml/ Magnesium Sulfate 2 meq/ Multivitamins 10 ml/Amino Acids/ Dextrose 1,010.5 ml @ 42 mls/hr Q24H4M IV 01/23/24 22:00 01/24/24 21:59 Norepinephrine Bitartrate 32 mg/ Dextrose 250 ml @ 0.938 mls/ hr Q24H IV 01/23/24 16:30 Examination Gen. Sedated, intubated on mechanical ventilator. Head: Normocephalic, atraumatic. Eyes: PERRLA. Ears: Normal external anatomy. Throat: Endotracheal tube and orogastric tube in place. Neck: Supple, trachea midline. Chest: Transmitted breath sounds bilaterally. Decreased air entry bilaterally. No wheezing. Bibasilar crackles. Cardiovascular: Positive S1, positive S2. Regular rate and rhythm. Abdomen: Positive bowel sounds in all 4 quadrants. Soft, nontender, nondistended. : Davies in place. Normal external genitalia. Skin: Warm, dry. Intact. Extremities: 2+ radial pulses bilaterally. No lower extremity edema. Neuro: Sedated. laboratory and microbiology Laboratory Tests 01/23/24 03:11 Test 01/23/24 03:11 Range/Units Serum Glucose 146 H 74-106 mg/dL Microbiology Date/Time Source Procedure Growth Status 01/20/24 14:32 Peritoneal Fluid Gram Stain - Final Resulted 01/20/24 14:32 Peritoneal Fluid Anaerobic Culture - Preliminary Resulted 01/20/24 14:32 Peritoneal Fluid Aerobic Culture - Preliminary Resulted 01/14/24 19:03 Trachea Gram Stain - Final Complete 01/14/24 19:03 Respiratory Culture - Final Yeast, not Ayse albicans Complete 01/14/24 10:28 Voided Urine Urine Culture - Final Complete 01/14/24 10:25 Blood Blood Culture - Final NO GROWTH AFTER 5 DAYS OF INCUBATION. Complete 01/12/24 16:13 Sputum Gram Stain - Final Complete 01/12/24 16:13 Respiratory Culture - Final Enterobacter cloacae Complete 12/18/23 13:03 Stool Stool Culture - Final Complete 12/18/23 13:03 Stool Shiga Toxin I & II - Final Complete Problem List/Assessment/Plan Problem List/Assessment/Plan Neurology: Metabolic encephalopathy probably secondary to sepsis Currently patient is intubated Currently under empiric IV antibiotic (meropenem and Linezolid) Completed multiple head CTs with no acute intracranial pathology Cardiovascular Acute on chronic systolic congestive heart failure (HFrEF, LVEF 35%)-status post ICD placement And is on Bumex drip Echocardiogram during this admission: Severely reduced LVEF, 35%, anterior anteroapical wall akinesia, moderately reduced RV systolic function, rest of study within normal limits. History of coronary artery disease with cardiac arrest (VFib/V-tach) - status post PCI with stent placements Currently aspirin on hold (INR of 2). Completed stress test which showed no ischemia, multiple territories of infarcts NSTEMI type 2 Secondary to septic shock. Stress test negative for ischemia Respiratory Acute respiratory failure due to Multiple pneumonia secondary to Enterobacter cloacae and Klebsiella Ruled out Ventilator associated Pneumonia currently is intubated on 01/14/2024 (VCV VT 450, RR 22, peep five, FiO2 30%) Completed new bronchoscopy 01/14/2024 since samples for culture and pathology. Aspiration pneumonia due to Gm +/- Bacteria. Secondary to Gastrografin study. Required endotracheal intubation on 01/14/2024 and bronchoscopy, Multiple pneumonia secondary to Enterobacter cloacae and Klebsiella Completed multiple courses of antibiotics, now on meropenem and Linezolid. Gastrointestinal Bowel obstruction secondary to sigmoid adenocarcinoma with hepatic metastasis - status post colectomy with terminal-terminal anastomosis Completed colectomy with terminal terminal anastomosis on 12/25/2023, with previous cardiological clearance. citizen participation specialist on board. Pelvic abscess - status post drainage abdomen and pelvis CT with contrast which shows abscess and pelvic area. Exploratory laparotomy with evacuation of pelvic abscess done on 01/20/24, colostomy bag is placed. Two JONATHAN drains were placed to lower portion of abdomen, Hepatomegaly secondary to liver metastasis due to sigmoid adenocarcinoma Monitor CMP and coagulation Transaminitis Secondary to above Genitourinary/Nephrology History of multiple UTIs Last urine culture with no evidence of bacterial growth Metabolic Hypernatremia -Resolved Infectious Disease Septic shock probably secondary to aspiration pneumonia versus pelvic abscess - resolved Required maximum dose of vasopressors (four IV vasopressors). Currently with no IV vasopressors Completed multiple courses of antibiotic (febrile since tazobactam for two days, ceftriaxone for one day, vancomycin previously for 12 days, meropenem previously four 12 days) Multiple cultures completed, only positive 3 times sputum for Enterobacter cloacae (pelvic fluid, blood, and urine culture negative) Id specialist on board Persistent sepsis probably secondary to pelvic abscess Completed new abdomen and pelvis CT with contrast which evidence abscess and pelvic area. abscess drainage on 01/20/24 by the surgeon. Currently under empiric IV antibiotic (Linezolid and meropenem) Hematology Persistent leukocytosis Probably secondary to pelvic abscess Coagulopathy secondary to sepsis INR on 01/19/2024 approximately 1.57 We will hold enoxaparin and aspirin Nutrition: TPN, no enteral feeding until bowel motility evaluated (has to be cleared by director surgical) Prophylaxis for PUD and DVT: Currently on pantoprazole and SCDs Lines Left arm PICC line placed on 01/07/2024 New Davies catheter 01/14/2024 ET tube 01/14/2024 Drips Versed Fentanyl NE Bumex Exploratory laparotomy with evacuation of pelvic abscess done on 01/20/24, colostomy bag is placed. Two JONATHAN drains were placed to lower portion of abdomen, Critical Care time spent 52 minutes including, patient care, chart review and updating family, excluding procedure. code status discussed with : Full Code for now. Case discussed with Dr Hall Plan discussed with: Other My Orders My Orders Orders - NICHOLE CANCINO RESIDENT Procedure Category Date Status Time Abg W/ Co-Ox RT 01/23/24 Logged 04:00 Dietary Evaluation Review Comments: 1) Advance pt diet when medically feasible to a Cardiac diet 2) Continue current plan of care Expected Outcomes/Goals: 1) F/U in 3-5 days NICHOLE CANCINO RESIDENT Jan 23, 2024 16:51
[2024-01-23] MEDS: TPN PER PHARMACY IV NR (21:57)
[2024-01-23] MEDS: fentaNYL Drip 2500mCg/250mlNS 250 ML IV SCH (23:56)
[2024-01-24] VITALS (110 sets, daily range): BP systolic 98–157; BP diastolic 31–65; PULSE 80–113; RESP 19–48; TEMP 97.7–99.7; O2SAT 94–100
[2024-01-24 03:55] LABS: Anion Gap 12 (5-15); BUN/Creatinine Ratio 101.3 (10.0-20.0); Carbon Dioxide 23 mmol/L (20-31); Magnesium 2.2 mg/dL (1.6-2.6)
[2024-01-24 03:56] LABS: Alanine Aminotransferase 133 U/L (7-40); Albumin 2.6 g/dL (3.2-4.8); Alkaline Phosphatase 335 U/L (46-116); Aspartate Aminotransferase 265 U/L (13-40); Bilirubin, Total 4.7 mg/dL (0.2-1.0); Blood Urea Nitrogen 79 mg/dL (9-23); Calcium 8.2 mg/dL (8.7-10.4); Chloride 111 mmol/L (98-107); Glucose 156 mg/dL (74-106); Phosphorus 5.6 mg/dL (2.4-5.1); Potassium 3.4 mmol/L (3.5-5.1); Sodium 146 mmol/L (136-145); Total Protein 5.6 g/dL (5.7-8.2)
--- NOTE | 2024-01-24 04:16 | DVH ---
CHEST RADIOGRAPH Indication: ET intubation Technique: Single frontal view of the chest was obtained Comparison: XY CHEST XRAY 1 VIEW on DOS: 01/23/24, XY CHEST XRAY 1 VIEW on DOS: 01/22/24, XY CHEST XRAY 1 VIEW on DOS: 01/21/24 IMPRESSION: There are low lung volumes. Patchy airspace opacity in the right lung base. No sizable effusion or p neumothorax. Endotracheal and enteric tube appear unchanged in satisfactory in position. Multi lead l eft cardiac device. No significant interval change.
[2024-01-24 06:56] LABS: Base Excess -2.9 mmol/L (-2.0-3.0)
[2024-01-24] MEDS: NOREPINEPHRINE BITARTRATE 32 MG in SODIUM CHL 0.9% 218 ML IV SCH (08:00)
--- NOTE | 2024-01-24 12:55 | DVHPN2 ---
Progress Note - Dictate Date Seen: Jan 24, 2024 Medical Necessity Reason Pt with a Central, PICC or Fol: Yes The following are medically ne: PICC Line, Davies Catheter Reason for davies catheter: Strict I&O Subjective adequate urine volumes vital signs Vital Sign Date Time Temp Pulse Resp B/P (MAP) Pulse Ox O2 Delivery O2 Flow Rate FiO2 01/24/24 12:14 100 32 141/51 (81) 98 30 01/24/24 11:45 99.5 211.1 01/24/24 10:00 Mechanical Ventilator+ Total Intake and Output 01/23/24 01/23/24 01/24/24 15:00 23:00 07:00 Intake Total 843.628 ml 796.376 ml 908.0 ml Output Total 915 ml 1500 ml Balance 843.628 ml -118.624 ml -592.0 ml medications Current Medications Medications Dose Ordered Sig/Saige Route Start Time Stop Time Status Last Admin Dose Admin Nitroglycerin 0.4 mg Q5MINP PRN SL 12/25/23 16:00 Pantoprazole Sodium 40 mg DAILY IV 12/26/23 10:00 01/24/24 10:31 40 MG Ipratropium [place] 0.5 mg Q6HR NEB 12/27/23 18:00 Cancel Amino Acids 0 ml @ 0 mls/hr PER PHARMACY IV 12/28/23 12:00 Diagnostic Test (Pha) 1 strip Q6HR 12/28/23 18:00 01/24/24 06:11 1 STRIP Insulin Human Regular FOLLOW SLIDING SCALE Q6HR SC 12/28/23 18:00 01/24/24 06:15 2 UNITS Dextrose 50 ml UD IV 12/28/23 13:00 Sodium Chloride 10 ml QSHIFT@10,22 IV 01/05/24 22:00 01/24/24 10:35 10 ML Enoxaparin Sodium 40 mg DAILY SC 01/13/24 10:00 Hold 01/14/24 12:50 40 MG Acetaminophen 1,000 mg Q8HP PRN IV 01/13/24 18:00 01/14/24 03:47 1,000 MG Meropenem 50 ml @ 17 mls/hr Q8H IV 01/14/24 20:00 01/24/24 04:17 17 MLS/HR Ipratropium [place] 0.5 mg Q6HPRN PRN NEB 01/14/24 18:30 01/23/24 18:38 0.5 MG Midazolam HCl 50 ml @ 1 mls/hr Q24H IV 01/14/24 20:00 01/24/24 10:31 15 MLS/HR Bumetanide 25 mg/ Miscellaneous 100 ml @ 2 mls/hr Q24H IV 01/20/24 14:45 01/22/24 22:53 2 MLS/HR Fat Emulsion Intravenous 50 ml/ Magnesium Sulfate 2 meq/ Multivitamins 10 ml/Amino Acids/ Dextrose 1,010.5 ml @ 42 mls/hr Q24H4M IV 01/23/24 22:00 01/24/24 21:59 01/23/24 21:57 42 MLS/HR Norepinephrine Bitartrate 32 mg/ Dextrose 250 ml @ 0.938 mls/ hr Q24H IV 01/23/24 16:30 Norepinephrine Bitartrate 32 mg/ Sodium Chloride 250 ml @ 0.938 mls/ hr Q24H IV 01/23/24 23:30 Fentanyl Citrate 250 ml @ 2.5 mls/hr Q24H IV 01/23/24 23:30 01/23/24 23:56 32.5 MLS/HR Fat Emulsion Intravenous 50 ml/ Potassium Acetate 40 meq/Calcium Gluconate 1.65 meq/Magnesium Sulfate 4 meq/ Multivitamins 10 ml/Amino Acids/ Dextrose 1,034.5483 ml @ 43 mls/hr Q24H4M IV 01/24/24 22:00 01/25/24 21:59 Fluconazole 100 ml @ 100 mls/hr DAILY IV 01/24/24 11:45 objective Gen: nad heent: nc/at, + ETT lungs: Patient Rhonchi cvs: no rub ext: no edema laboratory and microbiology Laboratory Tests 01/24/24 03:18 01/23/24 03:11 Test 01/24/24 03:18 Range/Units Serum Glucose 156 H 74-106 mg/dL Assessment/Plan Acute kidney injury due to hemodynamic mediated 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 Acute respiratory failure, intubated on ventilator Septic shock Hyponatremia due excess H2O Transaminitis abdominal abscess Microcytic anemia due to blood loss Iron deficiency - resolving acute kidney injury - No new recommendations from nephrology perspective, I will sign off of her case. Please reconsult as needed. Thank you. Dietary Evaluation Review Comments: 1) Advance pt diet when medically feasible to a Cardiac diet 2) Continue current plan of care Expected Outcomes/Goals: 1) F/U in 3-5 days Plan discussed with: Other SALENA SILVA MD Jan 24, 2024 12:55
[2024-01-24] MEDS: FLUCONAZOLE 200MG/100ML 100 ML IV SCH (12:57)
[2024-01-24] MEDS: methylPREDNISolone SOD SUCC 40 MG/ML VL IV ONE (13:01)
--- NOTE | 2024-01-24 14:13 | DVHPN2 ---
Progress Note - Dictate Date Seen: Jan 24, 2024 Medical Necessity Reason Pt with a Central, PICC or Fol: Yes The following are medically ne: PICC Line, Davies Catheter Reason for davies catheter: Strict I&O Subjective She is sedated, intubated on mechanical ventilator. WBC is elevated at 30.0. she has skin rash all over possible drug Antibiotic status: Vancomycin HCl 200 ml @ 200 mls/hr - [Started 12/31 - 01/15] Linezolid [ started 01/17 - Ongoing] Meropenem 50 ml @ 17 mls/hr - [Started - 01/02 - stopped] ; restarted 01/13 - Ongoing vital signs Vital Sign Date Time Temp Pulse Resp B/P (MAP) Pulse Ox O2 Delivery O2 Flow Rate FiO2 01/24/24 13:01 138/40 01/24/24 12:14 100 32 98 30 01/24/24 12:00 Mechanical Ventilator+ 01/24/24 11:45 99.5 211.1 Total Intake and Output 01/23/24 01/23/24 01/24/24 15:00 23:00 07:00 Intake Total 843.628 ml 796.376 ml 908.0 ml Output Total 915 ml 1500 ml Balance 843.628 ml -118.624 ml -592.0 ml medications Current Medications Medications Dose Ordered Sig/Saige Route Start Time Stop Time Status Last Admin Dose Admin Nitroglycerin 0.4 mg Q5MINP PRN SL 12/25/23 16:00 Pantoprazole Sodium 40 mg DAILY IV 12/26/23 10:00 01/24/24 10:31 40 MG Ipratropium [place] 0.5 mg Q6HR NEB 12/27/23 18:00 Cancel Amino Acids 0 ml @ 0 mls/hr PER PHARMACY IV 12/28/23 12:00 Diagnostic Test (Pha) 1 strip Q6HR 12/28/23 18:00 01/24/24 13:16 1 STRIP Insulin Human Regular FOLLOW SLIDING SCALE Q6HR SC 12/28/23 18:00 01/24/24 13:18 2 UNITS Dextrose 50 ml UD IV 12/28/23 13:00 Sodium Chloride 10 ml QSHIFT@10,22 IV 01/05/24 22:00 01/24/24 10:35 10 ML Enoxaparin Sodium 40 mg DAILY SC 01/13/24 10:00 Hold 01/14/24 12:50 40 MG Acetaminophen 1,000 mg Q8HP PRN IV 01/13/24 18:00 01/14/24 03:47 1,000 MG Meropenem 50 ml @ 17 mls/hr Q8H IV 01/14/24 20:00 01/24/24 13:09 17 MLS/HR Ipratropium [place] 0.5 mg Q6HPRN PRN NEB 01/14/24 18:30 01/23/24 18:38 0.5 MG Midazolam HCl 50 ml @ 1 mls/hr Q24H IV 01/14/24 20:00 01/24/24 13:01 15 MLS/HR Bumetanide 25 mg/ Miscellaneous 100 ml @ 2 mls/hr Q24H IV 01/20/24 14:45 01/22/24 22:53 2 MLS/HR Fat Emulsion Intravenous 50 ml/ Magnesium Sulfate 2 meq/ Multivitamins 10 ml/Amino Acids/ Dextrose 1,010.5 ml @ 42 mls/hr Q24H4M IV 01/23/24 22:00 01/24/24 21:59 01/23/24 21:57 42 MLS/HR Norepinephrine Bitartrate 32 mg/ Dextrose 250 ml @ 0.938 mls/ hr Q24H IV 01/23/24 16:30 Norepinephrine Bitartrate 32 mg/ Sodium Chloride 250 ml @ 0.938 mls/ hr Q24H IV 01/23/24 23:30 Fentanyl Citrate 250 ml @ 2.5 mls/hr Q24H IV 01/23/24 23:30 01/23/24 23:56 32.5 MLS/HR Fat Emulsion Intravenous 50 ml/ Potassium Acetate 40 meq/Calcium [place] 1.65 meq/Magnesium Sulfate 4 meq/ Multivitamins 10 ml/Amino Acids/ Dextrose 1,034.5483 ml @ 43 mls/hr Q24H4M IV 01/24/24 22:00 01/25/24 21:59 Fluconazole 100 ml @ 100 mls/hr DAILY IV 01/24/24 11:45 01/24/24 12:57 100 MLS/HR Diphenhydramine HCl 50 mg Q8HR IV 01/24/24 14:00 01/25/24 07:00 UNV objective General.: Patient lying in bed in medical ICU. Sedated, intubated on mechanical ventilator. Head: Normocephalic, atraumatic. Eyes: PERRLA. Ears: Normal external anatomy. Throat: Endotracheal tube and orogastric tube in place. Neck: Supple, trachea midline. Chest: Transmitted breath sounds bilaterally. Decreased air entry bilaterally. No wheezing. Bibasilar crackles. Cardiovascular: Positive S1, positive S2. Regular rate and rhythm. Abdomen: s/p ex lap, JONATHAN drain +, stoma + : Davies in place. Normal external genitalia. Skin: rash + Extremities: 2+ radial pulses bilaterally. +4 pitting edema. Neuro: Sedated. laboratory and microbiology Laboratory Tests 01/24/24 03:18 01/23/24 03:11 Test 01/24/24 03:18 Range/Units Serum Glucose 156 H 74-106 mg/dL Assessment/Plan Patient is a 64-year-old female presents to the hospital with: skin rash possible drug related Pelvic abscess; colon leak vs ascites septic shock vs distributive shock leucocytosis Ventilator associated Pneumonia : [place] large bowel obstruction s/p colectomy s/p end to end anastomosis 12/24 possible colon cancer with mets ascites: malignant vs post surgical vs infection Liver mets acute hypoxic respiratory failure on mechanical ventilation CHF anasarca Recommendations: Skin rash likely due to drug related, among Micafungin, Linezolid and MEropenem the likely culprit is Micafungin > meropenem > Zyvox will stop Micafungin for now, switch to Fluconazole, cont meropenem for now, will plan for 5-7 days since surgery. OR cx 01/19, Aerobic and Anaerobic culture: prelim negative ; follow repeat Ct abdomen and pelvis shows large collection, concern fo colon leak/ abscess/ ascites s/p Ex lap, 01/19. OR cx sent. prelim no growth wbc trending high ; trend on pressors cultures review 01/06: body fluid cultures : few WBC seen , no organisms 01/05, Blood culture: No growth 01/05, Urine culture: No growth 01/04, Aerobic culture: No growth 12/29 : sputum culture notable for Enterobacter cloacae. overall prognosis is very poor with mets, plus worsening sepsis. consider goals of care discussion. crit time 35 minutes spent in co-ordination of care Thank you for the consult and for giving an opportunity to take care of this patient. Dietary Evaluation Review Comments: 1) Advance pt diet when medically feasible to a Cardiac diet 2) Continue current plan of care Expected Outcomes/Goals: 1) F/U in 3-5 days Plan discussed with: Other JASPREET ALVAREZ MD Jan 24, 2024 14:13
[2024-01-24] MEDS: diphenhdrAMINE HCL 50 MG/1 ML VL IV SCH (14:46)
--- NOTE | 2024-01-24 16:14 | DVHPN2 ---
Subjective A 63-year-old female patient with PMHx of systolic heart failure status post [employer] ICD placement -last EF 35% in September2023, CAD status post 4 RYAN in January 2018 , dyslipidemia, recurrent UTIs and pyelonephritis for the past 4 months, hypertension and internal hemorrhoids presented to the ER with a chief complaint of suprapubic abdominal pain and constipation. Patient recently visited [facility] in August this year with her when she went to the [place] barefoot and had bite dong all over the body, following which she has been getting recurrent UTIs and pyelonephritis starting September, also reports dry cough since the visit. She reports that the abdominal pain started 12/10 and is associated with tenesmus, she only passes small pellet-like stools associated with mucus and a lot of flatus. Also reports history of internal hemorrhoids and that she is experiencing bright red bleed per rectum for the past few days. She denies lifetime history of colonoscopy/endoscopy. Reports nausea, chills on and off but no fever. Denies lifetime history of STI, is monogamous with the . Her did not get any symptoms after the trip. PCP Jodie Rico Past surgical history; Partial hysterectomy Family history: Unremarkable Social history: Lives with , denies smoking, drank heavily during the vacation - quit since, denies illicit drug Patient seen and examined at bedside. Abdomen and pelvis CT which evidence pelvic abscess. Exploratory laparotomy with evacuation of pelvic abscess done on 01/20/24, colostomy bag is placed. Two JONATHAN drains were placed to lower portion of abdomen, liver biopsy was done at the time. Reviewed: Care Plan, H&P, Labs, Medications, Previous Orders, Radiology, Other (Consultants) Changes from previous H/P or p: No Changes Objective Vitals Vital Signs Date Time Temp Pulse Resp B/P (MAP) Pulse Ox O2 Delivery O2 Flow Rate FiO2 01/24/24 16:00 89 31 121/40 (67) 98 30 01/24/24 15:31 98.8 209.8 01/24/24 14:00 Mechanical Ventilator+ Intake/Output Intake and Output 01/24/24 05:00 Intake Total 2634.380 ml Output Total 1560 ml Balance 1074.380 ml IV Total 2634.380 ml Output Urine Total 1225 ml Gastric Drainage Total 5 ml Drainage Total 330 ml General Appearance: Other (Intubated and sedated) HEENT: Atraumatic, PERRLA Lungs: Clear to auscultation Cardiovascular: Regular rate Abdomen: Other (Serous drainage from lower abdominal wound. Clean wound. [place] in place.) Extremities: Other (edema) Neuro: Other (sedated and ventilated/has cough and gag reflex) Medications Current Medications Medications Dose Ordered Sig/Saige Route Start Time Stop Time Status Last Admin Dose Admin Nitroglycerin 0.4 mg Q5MINP PRN SL 12/25/23 16:00 Pantoprazole Sodium 40 mg DAILY IV 12/26/23 10:00 01/24/24 10:31 40 MG Ipratropium [place] 0.5 mg Q6HR NEB 12/27/23 18:00 Cancel Amino Acids 0 ml @ 0 mls/hr PER PHARMACY IV 12/28/23 12:00 Diagnostic Test (Pha) 1 strip Q6HR 12/28/23 18:00 01/24/24 13:16 1 STRIP Insulin Human Regular FOLLOW SLIDING SCALE Q6HR SC 12/28/23 18:00 01/24/24 13:18 2 UNITS Dextrose 50 ml UD IV 12/28/23 13:00 Sodium Chloride 10 ml QSHIFT@10,22 IV 01/05/24 22:00 01/24/24 10:35 10 ML Enoxaparin Sodium 40 mg DAILY SC 01/13/24 10:00 Hold 01/14/24 12:50 40 MG Acetaminophen 1,000 mg Q8HP PRN IV 01/13/24 18:00 01/14/24 03:47 1,000 MG Meropenem 50 ml @ 17 mls/hr Q8H IV 01/14/24 20:00 01/24/24 13:09 17 MLS/HR Ipratropium [place] 0.5 mg Q6HPRN PRN NEB 01/14/24 18:30 01/23/24 18:38 0.5 MG Midazolam HCl 50 ml @ 1 mls/hr Q24H IV 01/14/24 20:00 01/24/24 13:01 15 MLS/HR Bumetanide 25 mg/ Miscellaneous 100 ml @ 2 mls/hr Q24H IV 01/20/24 14:45 01/24/24 15:04 2 MLS/HR Fat Emulsion Intravenous 50 ml/ Magnesium Sulfate 2 meq/ Multivitamins 10 ml/Amino Acids/ Dextrose 1,010.5 ml @ 42 mls/hr Q24H4M IV 01/23/24 22:00 01/24/24 21:59 01/23/24 21:57 42 MLS/HR Norepinephrine Bitartrate 32 mg/ Dextrose 250 ml @ 0.938 mls/ hr Q24H IV 01/23/24 16:30 Norepinephrine Bitartrate 32 mg/ Sodium Chloride 250 ml @ 0.938 mls/ hr Q24H IV 01/23/24 23:30 Fentanyl Citrate 250 ml @ 2.5 mls/hr Q24H IV 01/23/24 23:30 01/24/24 14:47 35 MLS/HR Fat Emulsion Intravenous 50 ml/ Potassium Acetate 40 meq/Calcium Gluconate 1.65 meq/Magnesium Sulfate 4 meq/ Multivitamins 10 ml/Amino Acids/ Dextrose 1,034.5483 ml @ 43 mls/hr Q24H4M IV 01/24/24 22:00 01/25/24 21:59 Fluconazole 100 ml @ 100 mls/hr DAILY IV 01/24/24 11:45 01/24/24 12:57 100 MLS/HR Diphenhydramine HCl 50 mg Q8HR IV 01/24/24 14:00 01/25/24 07:00 01/24/24 14:46 50 MG Potassium Chloride 100 ml @ 50 mls/hr Q2H IV 01/24/24 16:00 01/24/24 19:59 Laboratory Results Laboratory Tests 01/23/24 03:11 01/24/24 03:18 Chemistry Test 01/24/24 03:18 Albumin 2.6 g/dL (3.2-4.8) L Calcium Level 8.2 mg/dL (8.7-10.4) L Magnesium Level 2.2 mg/dL (1.6-2.6) Phosphorus Level 5.6 mg/dL (2.4-5.1) H Total Protein 5.6 g/dL (5.7-8.2) L LFT Test 01/24/24 03:18 Alanine Aminotransferase (ALT) 133 U/L (7-40) H Alkaline Phosphatase 335 U/L (46-116) H Aspartate Amino Transferase (AST) 265 U/L (13-40) H Total Bilirubin 4.7 mg/dL (0.2-1.0) H Urinalysis Test 12/26/23 01:30 01/14/24 10:28 Urine Granular Casts Few /lpf (0) Urine Mucus Few (None Seen) Urine Yeast (Budding) Occasional /hpf (None Urine Creatinine 64.14 mg/dL (30.0-125.0) Urine Protein/Creatinine Ratio 1.97 Urine Sodium 35 mmol/L (40-220) L Urine Total Protein 126.3 mg/dL (1-14) H Urine Color Dark-yellow (Yellow) Urine Clarity Clear (Clear) Urine pH 5.5 (5.0-9.0) Urine Specific [place] 1.017 (1.001-1.035) Urine Protein 1+ (Negative) H Urine Ketones Negative (Negative) Urine Blood 1+ /uL (Negative) H Urine Nitrite Negative (Negative) Urine Bilirubin 1+ (Negative) H Urine Urobilinogen Normal mg/dL (Negative) Urine Leukocyte Esterase Negative /uL (Negative) Urine RBC 3 /hpf (0 - 4) Urine WBC 2 /hpf (0 - 5) Urine Squamous Epithelial Cells Few /hpf (<5) Urine Bacteria None seen /hpf (None Seen) Urine Hyaline Casts Few /lpf (0 - 2) Urine Glucose Normal mg/dL (Normal) Blood Gas Results Test 01/24/24 06:51 Arterial Blood pH 7.420 (7.350-7.450) FiO2 % 30.0 Microbiology Microbiology Date/Time Source Procedure Growth Status 01/20/24 14:32 Peritoneal Fluid Gram Stain - Final Resulted 01/20/24 14:32 Peritoneal Fluid Anaerobic Culture - Preliminary Resulted 01/20/24 14:32 Peritoneal Fluid Aerobic Culture - Preliminary Resulted 01/14/24 19:03 Trachea Gram Stain - Final Complete 01/14/24 19:03 Respiratory Culture - Final Yeast, not Ayse albicans Complete 01/14/24 10:28 Voided Urine Urine Culture - Final Complete 01/14/24 10:25 Blood Blood Culture - Final NO GROWTH AFTER 5 DAYS OF INCUBATION. Complete 01/12/24 16:13 Sputum Gram Stain - Final Complete 01/12/24 16:13 Respiratory Culture - Final Enterobacter cloacae Complete 12/18/23 13:03 Stool Stool Culture - Final Complete 12/18/23 13:03 Stool Shiga Toxin I & II - Final Complete Assessment/Plan Assessment/Plan Neurology: Metabolic encephalopathy probably secondary to sepsis Currently patient is intubated Currently under empiric IV antibiotic (meropenem and Linezolid) Completed multiple head CTs with no acute intracranial pathology Cardiovascular Acute on chronic systolic congestive heart failure (HFrEF, LVEF 35%)-status post ICD placement And is on Bumex drip Echocardiogram during this admission: Severely reduced LVEF, 35%, anterior anteroapical wall akinesia, moderately reduced RV systolic function, rest of study within normal limits. History of coronary artery disease with cardiac arrest (VFib/V-tach) - status post PCI with stent placements Currently aspirin on hold (INR of 2). Completed stress test which showed no ischemia, multiple territories of infarcts NSTEMI type 2 Secondary to septic shock. Stress test negative for ischemia Respiratory Acute respiratory failure due to Multiple pneumonia secondary to Enterobacter cloacae and Klebsiella Ruled out Ventilator associated Pneumonia currently is intubated on 01/14/2024 (VCV VT 450, RR 22, peep five, FiO2 30%) Completed new bronchoscopy 01/14/2024 since samples for culture and pathology. Aspiration pneumonia due to Gm +/- Bacteria. Secondary to Gastrografin study. Required endotracheal intubation on 01/14/2024 and bronchoscopy, Multiple pneumonia secondary to Enterobacter cloacae and Klebsiella Completed multiple courses of antibiotics, now on meropenem and Linezolid. Gastrointestinal Bowel obstruction secondary to sigmoid adenocarcinoma with hepatic metastasis - status post colectomy with terminal-terminal anastomosis Completed colectomy with terminal terminal anastomosis on 12/25/2023, with previous cardiological clearance. 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 Pelvic abscess - status post drainage abdomen and pelvis CT with contrast which shows abscess and pelvic area. Exploratory laparotomy with evacuation of pelvic abscess done on 01/20/24, colostomy bag is placed. Two JONATHAN drains were placed to lower portion of abdomen, Hepatomegaly secondary to liver metastasis due to sigmoid adenocarcinoma Monitor CMP and coagulation Transaminitis Secondary to above Genitourinary/Nephrology History of multiple UTIs Last urine culture with no evidence of bacterial growth Metabolic Hypernatremia -Resolved Infectious Disease Septic shock probably secondary to aspiration pneumonia versus pelvic abscess - resolved Required maximum dose of vasopressors (four IV vasopressors). Currently with no IV vasopressors Completed multiple courses of antibiotic (febrile since tazobactam for two days, ceftriaxone for one day, vancomycin previously for 12 days, meropenem previously four 12 days) Multiple cultures completed, only positive 3 times sputum for Enterobacter cloacae (pelvic fluid, blood, and urine culture negative) Id specialist on board Persistent sepsis probably secondary to pelvic abscess Completed new abdomen and pelvis CT with contrast which evidence abscess and pelvic area. abscess drainage on 01/20/24 by the surgeon. Currently under empiric IV antibiotic (Linezolid and meropenem) Hematology Persistent leukocytosis Probably secondary to pelvic abscess Coagulopathy secondary to sepsis INR on 01/19/2024 approximately 1.57 We will hold enoxaparin and aspirin Nutrition: TPN, no enteral feeding until bowel motility evaluated (has to be cleared by surgical supply assistant) Prophylaxis for PUD and DVT: Currently on pantoprazole and SCDs Lines Left arm PICC line placed on 01/07/2024 New Azar catheter 01/14/2024 ET tube 01/14/2024 Drips Versed Fentanyl NE Bumex Exploratory laparotomy with evacuation of pelvic abscess done on 01/20/24, colostomy bag is placed. Two JONATHAN drains were placed to lower portion of abdomen, Critical Care time spent 52 minutes including, patient care, chart review and updating family, excluding procedure. code status discussed with : Full Code for now. Plan discussed with: Other (nurse) My Orders Orders - CASTRO FRANK MD Procedure Category Date Status Time Potassium Chl PHA 01/24/24 In Process 20meq/100ml 16:00 Date of Service: Jan 24, 2024 Billing Provider: CASTRO FRANK MD Common Visit Codes: [id number] CARE 30-74 MIN CASTRO FRANK MD Jan 24, 2024 16:14
[2024-01-24] MEDS: POTASSIUM CHL 20MEQ/100ML 100 ML IV SCH (17:41)
[2024-01-24] MEDS: TPN PER PHARMACY IV NR (21:23)
--- NOTE | 2024-01-24 22:32 | DVHPN2 ---
Progress Note - Dictate Date Seen: Jan 24, 2024 Medical Necessity Reason Pt with a Central, PICC or Fol: Yes The following are medically ne: PICC Line, Davies Catheter Reason for davies catheter: Strict I&O Subjective Patient seen and examined at bedside. Sedated, intubated on mechanical ventilator. Overnight events reviewed. vital signs Vital Sign Date Time Temp Pulse Resp B/P (MAP) Pulse Ox O2 Delivery O2 Flow Rate FiO2 01/24/24 22:00 81 01/24/24 22:00 97.9 23 119/39 (65) 97 208.2 01/24/24 22:00 Mechanical Ventilator+ 30 30 Total Intake and Output 01/23/24 01/23/24 01/24/24 15:00 23:00 07:00 Intake Total 843.628 ml 796.376 ml 1016.5 ml Output Total 915 ml 1500 ml Balance 843.628 ml -118.624 ml -483.5 ml medications Current Medications Medications Dose Ordered Sig/Saige Route Start Time Stop Time Status Last Admin Dose Admin Pantoprazole Sodium 40 mg DAILY IV 12/26/23 10:00 01/24/24 10:31 40 MG Ipratropium [place] 0.5 mg Q6HR NEB 12/27/23 18:00 Cancel Amino Acids 0 ml @ 0 mls/hr PER PHARMACY IV 12/28/23 12:00 Diagnostic Test (Pha) 1 strip Q6HR 12/28/23 18:00 01/24/24 18:08 1 STRIP Insulin Human Regular FOLLOW SLIDING SCALE Q6HR SC 12/28/23 18:00 01/24/24 17:53 4 UNITS Dextrose 50 ml UD IV 12/28/23 13:00 Sodium Chloride 10 ml QSHIFT@10,22 IV 01/05/24 22:00 01/24/24 21:42 10 ML Enoxaparin Sodium 40 mg DAILY SC 01/13/24 10:00 Hold 01/14/24 12:50 40 MG Acetaminophen 1,000 mg Q8HP PRN IV 01/13/24 18:00 01/14/24 03:47 1,000 MG Meropenem 50 ml @ 17 mls/hr Q8H IV 01/14/24 20:00 01/24/24 22:16 17 MLS/HR Ipratropium [place] 0.5 mg Q6HPRN PRN NEB 01/14/24 18:30 01/23/24 18:38 0.5 MG Midazolam HCl 50 ml @ 1 mls/hr Q24H IV 01/14/24 20:00 01/24/24 21:34 15 MLS/HR Bumetanide 25 mg/ Miscellaneous 100 ml @ 2 mls/hr Q24H IV 01/20/24 14:45 01/24/24 15:04 2 MLS/HR Norepinephrine Bitartrate 32 mg/ Dextrose 250 ml @ 0.938 mls/ hr Q24H IV 01/23/24 16:30 Norepinephrine Bitartrate 32 mg/ Sodium Chloride 250 ml @ 0.938 mls/ hr Q24H IV 01/23/24 23:30 01/24/24 18:09 0.938 MLS/HR Fentanyl Citrate 250 ml @ 2.5 mls/hr Q24H IV 01/23/24 23:30 01/24/24 21:24 35 MLS/HR Fat Emulsion Intravenous 50 ml/ Potassium Acetate 40 meq/Calcium Gluconate 1.65 meq/Magnesium Sulfate 4 meq/ Multivitamins 10 ml/Amino Acids/ Dextrose 1,034.5483 ml @ 43 mls/hr Q24H4M IV 01/24/24 22:00 01/25/24 21:59 01/24/24 21:23 43 MLS/HR Fluconazole 100 ml @ 100 mls/hr DAILY IV 01/24/24 11:45 01/24/24 12:57 100 MLS/HR Diphenhydramine HCl 50 mg Q8HR IV 01/24/24 14:00 01/25/24 07:00 01/24/24 21:20 50 MG objective Gen.: Patient lying in bed in medical ICU. Sedated, intubated on mechanical ventilator. Head: Normocephalic, atraumatic. Eyes: PERRLA. Ears: Normal external anatomy. Throat: Endotracheal tube and orogastric tube in place. Neck: Supple, trachea midline. Chest: Transmitted breath sounds bilaterally. Decreased air entry bilaterally. No wheezing. Bibasilar crackles. Cardiovascular: Positive S1, positive S2. Regular rate and rhythm. Abdomen: Positive bowel sounds in all 4 quadrants. Soft, nontender, nondistended. : Davies in place. Normal external genitalia. Rectal: Deferred. Skin: Warm, dry. Intact. Extremities: 2+ radial pulses bilaterally. No lower extremity edema. Neuro: Sedated. laboratory and microbiology Laboratory Tests 01/24/24 03:18 01/23/24 03:11 Test 01/24/24 03:18 Range/Units Serum Glucose 156 H 74-106 mg/dL Assessment/Plan Impression: Acute hypoxic respiratory failure On mechanical ventilator Sepsis due to liver abscess Possible MARCIANO in liver Chronic systolic heart failure CAD s/p PTCA with multiple stents and s/p defibrillator Distributive shock Metastatic colon cancer status post left colectomy Iron deficiency anemia Acute kidney injury due to shock Metabolic acidosis Lactic acidosis Events: ABG reviewed, compensated. Patient overbreathing the vent. On Versed, Fentanyl drip. Patient with fever Continue antibiotics - linezolid and meropenem Continue antifungal - Micafungin. On pressors (Levophed) for hemodynamic support Titrate to keep mean arterial pressure greater than 65 mmHg. TPN for nutritional support Diurese w/ Bumex Monitor renal function Monitor electrolytes. Supplement as necessary. Wound care. Surgery recs appreciated. Protonix for GI prophylaxis Patient is s/p exploratory laparotomy S/p therapeutic bronchoscopy with RML BAL on 01/03 Labs and imaging reviewed. Rest of plan as noted below. Plan: s/p intubation on mechanical ventilator CXR image and report reviewed. Devices in place. Small right-sided pleural effusion with associated atelectasis. ABG reviewed. Compensated Assist control mode with respiratory rate of 22, tidal volume 350, PEEP of 5, FiO2 of 30%. Titrate FIO2 to keep O2 saturation above 92%. VAP bundle Daily ABG and CXR while intubated. Sedate for ventilatory synchrony Pressors as necessary for hemodynamic support Titrate to keep MAP above 65 mmHg/SBP above 90 mmHg. Antibiotics. F/u cultures. Blood cultures no growth after 5 days. Sputum culture notable for Enterobacter cloacae. Monitor renal function Monitor ins/outs Diurese with Lasix to euvolemia Monitor electrolytes. Supplement as necessary. Monitor lactic acid due to lactic acidosis. Nutritional support. Accucheks, ISS. GI/DVT prophylaxis. Condition: Critical Prognosis: Poor given multiple comorbidities. Rest of plan per hospitalist and other consultants. A total of 35 minutes of critical care time was spent reviewing the patient record, examining the patient, making a diagnostic and therapeutic plan, discussing this plan with the medical personnel, following up on diagnostic studies and following the patient for clinical stability excluding any and all procedures. At least 50% of this time was spent in direct, [id number] contact. Thank you Dr. Heath for allowing me to participate in this patient's care. Further recommendations will depend on patient's clinical course. Please do not hesitate to contact me if you have any questions or concerns. This medical document was created using an electronic medical record system with [employer] dictation system. Although this document has been carefully reviewed, there may still be some phonetic and typographical errors. These areas are purely typographical due to imperfections of the software programs, and do not reflect any compromise in the patient's medical care. Dietary Evaluation Review Comments: 1) Advance pt diet when medically feasible to a Cardiac diet 2) Continue current plan of care Expected Outcomes/Goals: 1) F/U in 3-5 days Plan discussed with: Other (WALKER Tavera) Critical Care Time(min): 35 DAYSI DYKES MD Jan 24, 2024 22:32
[2024-01-25] VITALS (117 sets, daily range): BP systolic 95–153; BP diastolic 12–66; PULSE 82–98; RESP 13–34; TEMP 96.3–99.3; O2SAT 95–100
--- NOTE | 2024-01-25 06:09 | DVH ---
CHEST RADIOGRAPH Indication: ET PLACEMENT Technique: Single frontal view of the chest was obtained Comparison: XY CHEST XRAY 1 VIEW on DOS: 01/24/24, XY CHEST XRAY 1 VIEW on DOS: 01/23/24, XY CHEST XRAY 1 VIEW on DOS: 01/22/24, XY CHEST XRAY 1 VIEW on DOS: 01/21/24, XY CHEST XRAY 1 VIEW on DOS: 01/20/24, XY CHEST XRAY 1 VIEW on DOS: 01/24/24 FINDINGS: There are low lung volumes. Patchy airspace opacity in the right lung base. No sizable effusion or p neumothorax. Endotracheal and enteric tube appear unchanged in satisfactory in position. Multi lead l eft cardiac device. No significant interval change. IMPRESSION: There are low lung volumes. Patchy airspace opacity in the right lung base. No sizable effusion or p neumothorax. Endotracheal and enteric tube appear unchanged in satisfactory in position. Multi lead l eft cardiac device. No significant interval change.
[2024-01-25 07:16] LABS: Base Excess -3.3 mmol/L (-2.0-3.0)
--- NOTE | 2024-01-25 08:04 | DVHPN2 ---
Progress Note Date Seen: Jan 25, 2024 Medical Necessity Reason Pt with a Central, PICC or Fol: Yes The following are medically ne: PICC Line, Davies Catheter Reason for davies catheter: Strict I&O Objective vital signs Vital Sign Date Time Temp Pulse Resp B/P (MAP) Pulse Ox O2 Delivery O2 Flow Rate FiO2 01/25/24 07:16 99.1 96 26 122/40 (67) 96 210.4 01/25/24 06:36 30 01/25/24 06:00 Mechanical Ventilator+ Total Intake and Output 01/24/24 01/24/24 01/25/24 15:00 23:00 07:00 Intake Total 979.5 ml 992.690 ml 851.566 ml Output Total 2275 ml 2620 ml Balance 979.5 ml -1282.310 ml -1768.434 ml medications Current Medications Medications Dose Ordered Sig/Saige Route Start Time Stop Time Status Last Admin Dose Admin Pantoprazole Sodium 40 mg DAILY IV 12/26/23 10:00 01/24/24 10:31 40 MG Ipratropium [place] 0.5 mg Q6HR NEB 12/27/23 18:00 Cancel Amino Acids 0 ml @ 0 mls/hr PER PHARMACY IV 12/28/23 12:00 Diagnostic Test (Pha) 1 strip Q6HR 12/28/23 18:00 01/25/24 05:18 1 STRIP Insulin Human Regular FOLLOW SLIDING SCALE Q6HR SC 12/28/23 18:00 01/25/24 05:16 4 UNITS Dextrose 50 ml UD IV 12/28/23 13:00 Sodium Chloride 10 ml QSHIFT@10,22 IV 01/05/24 22:00 01/24/24 21:42 10 ML Enoxaparin Sodium 40 mg DAILY SC 01/13/24 10:00 Hold 01/14/24 12:50 40 MG Acetaminophen 1,000 mg Q8HP PRN IV 01/13/24 18:00 01/14/24 03:47 1,000 MG Meropenem 50 ml @ 17 mls/hr Q8H IV 01/14/24 20:00 01/25/24 03:44 17 MLS/HR Ipratropium [place] 0.5 mg Q6HPRN PRN NEB 01/14/24 18:30 01/23/24 18:38 0.5 MG Midazolam HCl 50 ml @ 1 mls/hr Q24H IV 01/14/24 20:00 01/25/24 06:43 15 MLS/HR Bumetanide 25 mg/ Miscellaneous 100 ml @ 2 mls/hr Q24H IV 01/20/24 14:45 01/24/24 15:04 2 MLS/HR Norepinephrine Bitartrate 32 mg/ Dextrose 250 ml @ 0.938 mls/ hr Q24H IV 01/23/24 16:30 Norepinephrine Bitartrate 32 mg/ Sodium Chloride 250 ml @ 0.938 mls/ hr Q24H IV 01/23/24 23:30 01/24/24 18:09 0.938 MLS/HR Fentanyl Citrate 250 ml @ 2.5 mls/hr Q24H IV 01/23/24 23:30 01/25/24 03:45 35 MLS/HR Fat Emulsion Intravenous 50 ml/ Potassium Acetate 40 meq/Calcium Gluconate 1.65 meq/Magnesium Sulfate 4 meq/ Multivitamins 10 ml/Amino Acids/ Dextrose 1,034.5483 ml @ 43 mls/hr Q24H4M IV 01/24/24 22:00 01/25/24 21:59 01/24/24 21:23 43 MLS/HR Fluconazole 100 ml @ 100 mls/hr DAILY IV 01/24/24 11:45 01/24/24 12:57 100 MLS/HR laboratory and microbiology Laboratory Tests 01/24/24 03:18 01/23/24 03:11 Test 01/24/24 03:18 Range/Units Serum Glucose 156 H 74-106 mg/dL Problem List/Assessment/Plan Problem List/Assessment/Plan 01/06/[address] Aditi BUCKLEY, ABDOMEN APPEARS TO BE TENDER IN THE LEFT LOWER QUADRANT, WOUND IS CLEAN AND WELL APPROXIMATED, DRAINAGE FROM LOWER PORTION OF MIDLINE WOUND.AWAITING ir intervention 01/07/24 essentially unchanged, continues hypotensive with leukocytosis, abdomen "full", no BM or flatus reported, spoke to interventional radiologist, he will proceed with drainage of pelvic fluid collection via transgluteal approach 01/08/24 slightly improved, discussed pelvic fluid drainage with radiologist,abdomen soft, non distended, continue current treatments 01/09/24 slightly improved, abdomen less tense, wound clean ,drainage clear, good urine output, less pressors requirement 01/10/24 wbc slightly better, wound ok, abdomen soft and non distended, no BM, will add reglan, once she passes flatus NG tube can be DC'd 01/11/24 'S QUESTIONS ANSWERED, SHE CONTINUES UNCHANGED, WOUND CLEAN ,ABDOMEN NON DISTENDED 01/12/24 abdomen non distended, appears non tender()pt awakens), wound clean and well approximated, undergoing CPAP trial 01/14/24 abdomen benign, sepsis persists, will get gastrografin small bowel series in hope of starting po intake 01/15/24 patient aspirated yesterday and was re intubated, there is what appears a large fluid collection/abscess in the pelvis which could be due to an anastomotic colon leak, I thoroughly explained to (patient sedated) that if radiologist not available to do a ct guided aspiration, she would need an operation to drain the pelvic abscess and could end up with a colostomy. I showed the patient's CT scan images to the and explained that the liver is essentially replaced with what appears to be malignant deposits. I told him to "think hard about what would his want" if she were able to make a decision for her self in this situation. 01/17/24 apparently no radiologist is on premisses till Friday, not at bedside this morning, patient essentially clinically unchanged, will wait to hear from patient's about family's wishes 01/19/24 radiologist not able to do percutaneous drainage patient continues to be septic, will proceed with operation Friday . operation, colostomy etc, previously explained to patient's who left a message with patient's nurse that he wished tyo proceed with the operation even though I explained to him that the patient will ultimately probably of her cancer 01/21/24 sedated, on mechanical ventilator, essentially unchanged from pre op condition, abdomen non distended, wound dressing clean, scotty drainage non sanguineous, stoma viable without function. 01/22/24 anasarca, wound clean and well approximated, urine output adequate, abdomen non distended. BP improved 01/25/24 leukocytosis, wound clean and well approximated, stoma viable with some flatus, drainage serous, continues with anasarca Plan discussed with: Patient Dietary Evaluation Review Comments: 1) Advance pt diet when medically feasible to a Cardiac diet 2) Continue current plan of care Expected Outcomes/Goals: 1) F/U in 3-5 days ASPEN EUBANKS MD Jan 25, 2024 08:04
[2024-01-25 11:49] LABS: Hemoglobin 8.4 g/dL (12.2-16.2)
[2024-01-25 11:51] LABS: Hematocrit 27.2 % (36.0-46.0); Mean Corpuscular Hemoglobin 26.1 pg (28.0-32.0); Mean Corpuscular Hgb Conc. 30.8 g/dL (32.0-36.0); Mean Corpuscular Volume 84.7 fL (80.0-100.0); Platelet Count (auto) 272 10^3/uL (140-450); Red Blood Cells 3.22 10^6/uL (4.0-5.20); Red Cell Distribution Width 26.7 % (11.8-14.3); White Blood Cell 26.4 10^3/uL (4.4-10.8)
[2024-01-25 11:53] LABS: Band Neutrophils % (manual) 0; Basophils % (manual) 0 (0.0-2.0); Blast Cells 0; Eosinophils % (manual) 0 (0-7); Metamyelocytes % 0; Myelocytes % 0; Promyelocytes % 0; Reactive Lymphocytes 0
[2024-01-25 12:10] LABS: Carbon Dioxide 24 mmol/L (20-31)
[2024-01-25 12:11] LABS: Anion Gap 13 (5-15); BUN/Creatinine Ratio 118.7 (10.0-20.0); Magnesium 2.4 mg/dL (1.6-2.6)
[2024-01-25 12:12] LABS: Lymphocytes % (manual) 2 (10.0-50.0); Monocytes % (manual) 5 (0-12)
[2024-01-25 12:13] LABS: Anisocytosis Slight; Hypochromia Slight
[2024-01-25 12:14] LABS: Target Cell FEW
[2024-01-25 12:15] LABS: Platelet Estimate Adequate
[2024-01-25 12:17] LABS: Alanine Aminotransferase 135 U/L (7-40); Albumin 2.6 g/dL (3.2-4.8); Alkaline Phosphatase 306 U/L (46-116); Aspartate Aminotransferase 221 U/L (13-40); Bilirubin, Total 4.6 mg/dL (0.2-1.0); Calcium 8.6 mg/dL (8.7-10.4); Chloride 113 mmol/L (98-107); Glucose 139 mg/dL (74-106); Phosphorus 6.1 mg/dL (2.4-5.1); Sodium 150 mmol/L (136-145); Total Protein 5.6 g/dL (5.7-8.2)
[2024-01-25 12:18] LABS: Blood Urea Nitrogen 89 mg/dL (9-23)
--- NOTE | 2024-01-25 16:46 | DVHPN2 ---
Progress Note - Dictate Date Seen: Jan 25, 2024 Medical Necessity Reason Pt with a Central, PICC or Fol: Yes The following are medically ne: PICC Line, Davies Catheter Reason for davies catheter: Strict I&O Subjective patient seen earlier today, patient's was at the bedside vital signs Vital Sign Date Time Temp Pulse Resp B/P (MAP) Pulse Ox O2 Delivery O2 Flow Rate FiO2 01/25/24 16:26 90 28 108/45 (66) 98 30 01/25/24 16:16 98.4 209.1 01/25/24 16:00 Mechanical Ventilator+ Total Intake and Output 01/24/24 01/24/24 01/25/24 15:00 23:00 07:00 Intake Total 979.5 ml 992.690 ml 851.566 ml Output Total 2275 ml 2620 ml Balance 979.5 ml -1282.310 ml -1768.434 ml medications Current Medications Medications Dose Ordered Sig/Saige Route Start Time Stop Time Status Last Admin Dose Admin Pantoprazole Sodium 40 mg DAILY IV 12/26/23 10:00 01/25/24 10:03 40 MG Ipratropium [place] 0.5 mg Q6HR NEB 12/27/23 18:00 Cancel Amino Acids 0 ml @ 0 mls/hr PER PHARMACY IV 12/28/23 12:00 Diagnostic Test (Pha) 1 strip Q6HR 12/28/23 18:00 01/25/24 11:47 1 STRIP Insulin Human Regular FOLLOW SLIDING SCALE Q6HR SC 12/28/23 18:00 01/25/24 11:47 2 UNITS Dextrose 50 ml UD IV 12/28/23 13:00 Sodium Chloride 10 ml QSHIFT@10,22 IV 01/05/24 22:00 01/25/24 10:03 10 ML Enoxaparin Sodium 40 mg DAILY SC 01/13/24 10:00 Hold 01/14/24 12:50 40 MG Acetaminophen 1,000 mg Q8HP PRN IV 01/13/24 18:00 01/14/24 03:47 1,000 MG Meropenem 50 ml @ 17 mls/hr Q8H IV 01/14/24 20:00 01/25/24 11:51 17 MLS/HR Ipratropium [place] 0.5 mg Q6HPRN PRN NEB 01/14/24 18:30 01/23/24 18:38 0.5 MG Midazolam HCl 50 ml @ 1 mls/hr Q24H IV 01/14/24 20:00 01/25/24 13:53 15 MLS/HR Norepinephrine Bitartrate 32 mg/ Dextrose 250 ml @ 0.938 mls/ hr Q24H IV 01/23/24 16:30 Hold Norepinephrine Bitartrate 32 mg/ Sodium Chloride 250 ml @ 0.938 mls/ hr Q24H IV 01/23/24 23:30 01/24/24 18:09 0.938 MLS/HR Fentanyl Citrate 250 ml @ 2.5 mls/hr Q24H IV 01/23/24 23:30 01/25/24 11:49 35 MLS/HR Fat Emulsion Intravenous 50 ml/ Potassium Acetate 40 meq/Calcium Gluconate 1.65 meq/Magnesium Sulfate 4 meq/ Multivitamins 10 ml/Amino Acids/ Dextrose 1,034.5483 ml @ 43 mls/hr Q24H4M IV 01/24/24 22:00 01/25/24 21:59 01/24/24 21:23 43 MLS/HR Fluconazole 100 ml @ 100 mls/hr DAILY IV 01/24/24 11:45 01/25/24 09:31 100 MLS/HR Fat Emulsion Intravenous 50 ml/ Potassium Acetate 20 meq/Magnesium Sulfate 2 meq/ Multivitamins 10 ml/Amino Acids/ Dextrose 920.5 ml @ 38 mls/hr [id number] IV 01/25/24 22:00 01/26/24 21:59 objective Gen: nad heent: nc/at, + ETT lungs: Patient Rhonchi cvs: no rub ext: no edema laboratory and microbiology Laboratory Tests 01/25/24 10:30 Test 01/25/24 10:30 Range/Units Serum Glucose 139 H 74-106 mg/dL Assessment/Plan Acute kidney injury due to hemodynamic mediated 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
--- NOTE | 2024-01-25 17:12 | DVHPN2 ---
Progress Note - Dictate Date Seen: Jan 25, 2024 Medical Necessity Reason Pt with a Central, PICC or Fol: Yes The following are medically ne: PICC Line, Davies Catheter Reason for davies catheter: Strict I&O Subjective She is sedated, intubated on mechanical ventilator. WBC is elevated at 26.4 she has skin rash all over possible drug Wound clean and well approximated, stoma viable with some flatus, drainage serous Antibiotic status: Vancomycin HCl 200 ml @ 200 mls/hr - [Started 12/31 - 01/15] Linezolid [ started 01/17 - Ongoing] Meropenem 50 ml @ 17 mls/hr - [Started - 01/02 - stopped] ; restarted 01/13 - Ongoing 01/24 Chest radiograph : There are low lung volumes. Patchy airspace opacity in the right lung base. No sizable effusion or pneumothorax. Endotracheal and enteric tube appear unchanged in satisfactory in position. Multi lead left cardiac device. No significant interval change. vital signs Vital Sign Date Time Temp Pulse Resp B/P (MAP) Pulse Ox O2 Delivery O2 Flow Rate FiO2 01/25/24 16:26 90 28 108/45 (66) 98 30 01/25/24 16:16 98.4 209.1 01/25/24 16:00 Mechanical Ventilator+ Total Intake and Output 01/24/24 01/24/24 01/25/24 15:00 23:00 07:00 Intake Total 979.5 ml 992.690 ml 851.566 ml Output Total 2275 ml 2620 ml Balance 979.5 ml -1282.310 ml -1768.434 ml medications Current Medications Medications Dose Ordered Sig/Saige Route Start Time Stop Time Status Last Admin Dose Admin Pantoprazole Sodium 40 mg DAILY IV 12/26/23 10:00 01/25/24 10:03 40 MG Ipratropium [place] 0.5 mg Q6HR NEB 12/27/23 18:00 Cancel Amino Acids 0 ml @ 0 mls/hr PER PHARMACY IV 12/28/23 12:00 Diagnostic Test (Pha) 1 strip Q6HR 12/28/23 18:00 01/25/24 11:47 1 STRIP Insulin Human Regular FOLLOW SLIDING SCALE Q6HR SC 12/28/23 18:00 01/25/24 11:47 2 UNITS Dextrose 50 ml UD IV 12/28/23 13:00 Sodium Chloride 10 ml QSHIFT@10,22 IV 01/05/24 22:00 01/25/24 10:03 10 ML Enoxaparin Sodium 40 mg DAILY SC 01/13/24 10:00 Hold 01/14/24 12:50 40 MG Acetaminophen 1,000 mg Q8HP PRN IV 01/13/24 18:00 01/14/24 03:47 1,000 MG Meropenem 50 ml @ 17 mls/hr Q8H IV 01/14/24 20:00 01/25/24 11:51 17 MLS/HR Ipratropium [place] 0.5 mg Q6HPRN PRN NEB 01/14/24 18:30 01/23/24 18:38 0.5 MG Midazolam HCl 50 ml @ 1 mls/hr Q24H IV 01/14/24 20:00 01/25/24 13:53 15 MLS/HR Norepinephrine Bitartrate 32 mg/ Dextrose 250 ml @ 0.938 mls/ hr Q24H IV 01/23/24 16:30 Hold Norepinephrine Bitartrate 32 mg/ Sodium Chloride 250 ml @ 0.938 mls/ hr Q24H IV 01/23/24 23:30 01/24/24 18:09 0.938 MLS/HR Fentanyl Citrate 250 ml @ 2.5 mls/hr Q24H IV 01/23/24 23:30 01/25/24 11:49 35 MLS/HR Fat Emulsion Intravenous 50 ml/ Potassium Acetate 40 meq/Calcium Gluconate 1.65 meq/Magnesium Sulfate 4 meq/ Multivitamins 10 ml/Amino Acids/ Dextrose 1,034.5483 ml @ 43 mls/hr Q24H4M IV 01/24/24 22:00 01/25/24 21:59 01/24/24 21:23 43 MLS/HR Fluconazole 100 ml @ 100 mls/hr DAILY IV 01/24/24 11:45 01/25/24 09:31 100 MLS/HR Fat Emulsion Intravenous 50 ml/ Potassium Acetate 20 meq/Magnesium Sulfate 2 meq/ Multivitamins 10 ml/Amino Acids/ Dextrose 920.5 ml @ 38 mls/hr [id number] IV 01/25/24 22:00 01/26/24 21:59 objective General.: Patient lying in bed in medical ICU. Sedated, intubated on mechanical ventilator. Head: Normocephalic, atraumatic. Eyes: PERRLA. Ears: Normal external anatomy. Throat: Endotracheal tube and orogastric tube in place. Neck: Supple, trachea midline. Chest: Transmitted breath sounds bilaterally. Decreased air entry bilaterally. No wheezing. Bibasilar crackles. Cardiovascular: Positive S1, positive S2. Regular rate and rhythm. Abdomen: s/p ex lap, JONATHAN drain +, stoma + : Davies in place. Normal external genitalia. Skin: rash + Extremities: 2+ radial pulses bilaterally. +4 pitting edema. Neuro: Sedated. laboratory and microbiology Laboratory Tests 01/25/24 10:30 Test 01/25/24 10:30 Range/Units Serum Glucose 139 H 74-106 mg/dL Assessment/Plan Patient is a 64-year-old female presents to the hospital with: skin rash possible drug related Pelvic abscess; colon leak vs ascites septic shock vs distributive shock leucocytosis Ventilator associated Pneumonia : [place] large bowel obstruction s/p colectomy s/p end to end anastomosis 12/24 possible colon cancer with mets ascites: malignant vs post surgical vs infection Liver mets acute hypoxic respiratory failure on mechanical ventilation CHF anasarca Recommendations: Skin rash likely due to drug related, among Micafungin, Linezolid and MEropenem the likely culprit is Micafungin > meropenem > Zyvox cont Fluconazole, cont meropenem for now, will plan for 5-7 days since surgery. OR cx 01/19, Aerobic and Anaerobic culture: prelim negative ; follow repeat Ct abdomen and pelvis shows large collection, concern fo colon leak/ abscess/ ascites s/p Ex lap, 01/19. OR cx sent. prelim no growth wbc trending high ; trend on pressors Continues with anasarca cultures review 01/06: body fluid cultures : few WBC seen , no organisms 01/05, Blood culture: No growth 01/05, Urine culture: No growth 01/04, Aerobic culture: No growth 12/29 : sputum culture notable for Enterobacter cloacae. overall prognosis is very poor with mets, plus worsening sepsis. consider goals of care discussion. crit time 35 minutes spent in co-ordination of care Thank you for the consult and for giving an opportunity to take care of this patient. Dietary Evaluation Review Comments: 1) Advance pt diet when medically feasible to a Cardiac diet 2) Continue current plan of care Expected Outcomes/Goals: 1) F/U in 3-5 days Plan discussed with: JASPREET Galvan MD Jan 25, 2024 17:12
[2024-01-25] MEDS: D5W 5% 1,000 ML IV ONE (17:20)
--- NOTE | 2024-01-25 20:04 | DVHPN2 ---
Progress Note - Dictate Date Seen: Jan 25, 2024 Medical Necessity Reason Pt with a Central, PICC or Fol: Yes The following are medically ne: PICC Line, Davies Catheter Reason for davies catheter: Strict I&O Subjective Patient seen and examined at bedside. Sedated, intubated on mechanical ventilator. Overnight events reviewed. vital signs Vital Sign Date Time Temp Pulse Resp B/P (MAP) Pulse Ox O2 Delivery O2 Flow Rate FiO2 01/25/24 19:05 91 26 132/47 98 30 01/25/24 18:45 98.4 209.1 01/25/24 18:00 Mechanical Ventilator+ Total Intake and Output 01/24/24 01/24/24 01/25/24 15:00 23:00 07:00 Intake Total 979.5 ml 992.690 ml 851.566 ml Output Total 2275 ml 2620 ml Balance 979.5 ml -1282.310 ml -1768.434 ml medications Current Medications Medications Dose Ordered Sig/Saige Route Start Time Stop Time Status Last Admin Dose Admin Pantoprazole Sodium 40 mg DAILY IV 12/26/23 10:00 01/25/24 10:03 40 MG Ipratropium [place] 0.5 mg Q6HR NEB 12/27/23 18:00 Cancel Amino Acids 0 ml @ 0 mls/hr PER PHARMACY IV 12/28/23 12:00 Diagnostic Test (Pha) 1 strip Q6HR 12/28/23 18:00 01/25/24 17:31 1 STRIP Insulin Human Regular FOLLOW SLIDING SCALE Q6HR SC 12/28/23 18:00 01/25/24 17:32 2 UNITS Dextrose 50 ml UD IV 12/28/23 13:00 Sodium Chloride 10 ml QSHIFT@10,22 IV 01/05/24 22:00 01/25/24 10:03 10 ML Enoxaparin Sodium 40 mg DAILY SC 01/13/24 10:00 Hold 01/14/24 12:50 40 MG Acetaminophen 1,000 mg Q8HP PRN IV 01/13/24 18:00 01/14/24 03:47 1,000 MG Meropenem 50 ml @ 17 mls/hr Q8H IV 01/14/24 20:00 01/25/24 19:52 17 MLS/HR Ipratropium [place] 0.5 mg Q6HPRN PRN NEB 01/14/24 18:30 01/23/24 18:38 0.5 MG Midazolam HCl 50 ml @ 1 mls/hr Q24H IV 01/14/24 20:00 01/25/24 17:19 15 MLS/HR Norepinephrine Bitartrate 32 mg/ Dextrose 250 ml @ 0.938 mls/ hr Q24H IV 01/23/24 16:30 Hold Norepinephrine Bitartrate 32 mg/ Sodium Chloride 250 ml @ 0.938 mls/ hr Q24H IV 01/23/24 23:30 01/24/24 18:09 0.938 MLS/HR Fentanyl Citrate 250 ml @ 2.5 mls/hr Q24H IV 01/23/24 23:30 01/25/24 18:28 35 MLS/HR Fat Emulsion Intravenous 50 ml/ Potassium Acetate 40 meq/Calcium Gluconate 1.65 meq/Magnesium Sulfate 4 meq/ Multivitamins 10 ml/Amino Acids/ Dextrose 1,034.5483 ml @ 43 mls/hr Q24H4M IV 01/24/24 22:00 01/25/24 21:59 01/24/24 21:23 43 MLS/HR Fluconazole 100 ml @ 100 mls/hr DAILY IV 01/24/24 11:45 01/25/24 09:31 100 MLS/HR Fat Emulsion Intravenous 50 ml/ Potassium Acetate 20 meq/Magnesium Sulfate 2 meq/ Multivitamins 10 ml/Amino Acids/ Dextrose 920.5 ml @ 38 mls/hr [id number] IV 01/25/24 22:00 01/26/24 21:59 objective Gen.: Patient lying in bed in medical ICU. Sedated, intubated on mechanical ventilator. Head: Normocephalic, atraumatic. Eyes: PERRLA. Ears: Normal external anatomy. Throat: Endotracheal tube and orogastric tube in place. Neck: Supple, trachea midline. Chest: Transmitted breath sounds bilaterally. Decreased air entry bilaterally. No wheezing. Bibasilar crackles. Cardiovascular: Positive S1, positive S2. Regular rate and rhythm. Abdomen: Positive bowel sounds in all 4 quadrants. Soft, nontender, nondistended. : Davies in place. Normal external genitalia. Rectal: Deferred. Skin: Warm, dry. Intact. Extremities: 2+ radial pulses bilaterally. No lower extremity edema. Neuro: Sedated. laboratory and microbiology Laboratory Tests 01/25/24 10:30 Test 01/25/24 10:30 Range/Units Serum Glucose 139 H 74-106 mg/dL Assessment/Plan Impression: Acute hypoxic respiratory failure On mechanical ventilator Sepsis due to liver abscess Possible MARCIANO in liver Chronic systolic heart failure CAD s/p PTCA with multiple stents and s/p defibrillator Distributive shock Metastatic colon cancer status post left colectomy Iron deficiency anemia Acute kidney injury due to shock Metabolic acidosis Lactic acidosis Events: Remains on vent support. Assist control mode with respiratory rate of 26, tidal volume 350, PEEP of 5, FiO2 of 30%. ABG reviewed, shows acidemia d/t CO2 retention CXR demonstrates patchy right lower lobe opacities, hypoinflation. Devices in place. On Fentanyl, Versed drips. Continue antibiotics - meropenem Continue antifungal - Diflucan. On pressors for hemodynamic support On Levophed 2 mcg/min Titrate to keep mean arterial pressure greater than 65 mmHg. TPN for nutritional support Bumex IVP for diuresis stopped D5W at 100 ml/hr. WBC slight trend down, 26.4 K Hemoglobin 8.4 g/dL. Monitor hemoglobin F/u BMP results. Potassium supplementation Monitor renal function Wound care. Protonix for GI prophylaxis Patient is s/p exploratory laparotomy S/p therapeutic bronchoscopy with RML BAL on 01/03 Labs and imaging reviewed. Rest of plan as noted below. Plan: s/p intubation on mechanical ventilator Assist control mode with respiratory rate of 26, tidal volume 350, PEEP of 5, FiO2 of 30%. Titrate FIO2 to keep O2 saturation above 92%. VAP bundle Daily ABG and CXR while intubated. Sedate for ventilatory synchrony Pressors as necessary for hemodynamic support Titrate to keep MAP above 65 mmHg/SBP above 90 mmHg. Antibiotics. F/u cultures. Blood cultures no growth after 5 days. Sputum culture notable for Enterobacter cloacae. Monitor renal function Monitor ins/outs Diurese with Lasix to euvolemia Monitor electrolytes. Supplement as necessary. Monitor lactic acid due to lactic acidosis. Nutritional support. Accucheks, ISS. GI/DVT prophylaxis. Condition: Critical Prognosis: Poor given multiple comorbidities. Rest of plan per hospitalist and other consultants. A total of 35 minutes of critical care time was spent reviewing the patient record, examining the patient, making a diagnostic and therapeutic plan, discussing this plan with the medical personnel, following up on diagnostic studies and following the patient for clinical stability excluding any and all procedures. At least 50% of this time was spent in direct, [id number] contact. Thank you Dr. Heath for allowing me to participate in this patient's care. Further recommendations will depend on patient's clinical course. Please do not hesitate to contact me if you have any questions or concerns. This medical document was created using an electronic medical record system with [employer] dictation system. Although this document has been carefully reviewed, there may still be some phonetic and typographical errors. These areas are purely typographical due to imperfections of the software programs, and do not reflect any compromise in the patient's medical care. Dietary Evaluation Review Comments: 1) Advance pt diet when medically feasible to a Cardiac diet 2) Continue current plan of care Expected Outcomes/Goals: 1) F/U in 3-5 days Plan discussed with: Other (WALKER Tavera) Critical Care Time(min): 35 DAYSI DYKES MD Jan 25, 2024 20:04
--- NOTE | 2024-01-25 20:54 | DVHPN2 ---
Subjective A 63-year-old female patient with PMHx of systolic heart failure status post Medtronic ICD placement -last EF 35% in September2023, CAD status post 4 RYAN in January 2018 , dyslipidemia, recurrent UTIs and pyelonephritis for the past 4 months, hypertension and internal hemorrhoids presented to the ER with a chief complaint of suprapubic abdominal pain and constipation. Patient recently visited [facility] in August this year with [place] bite dong all over the body, following which she has been getting recurrent UTIs and pyelonephritis starting September, also reports dry cough since the visit. She reports that the abdominal pain started 12/10 and is associated with tenesmus, she only passes small pellet-like stools associated with mucus and a lot of flatus. Also reports history of internal hemorrhoids and that she is experiencing bright red bleed per rectum for the past few days. She denies lifetime history of colonoscopy/endoscopy. Reports nausea, chills on and off but no fever. Denies lifetime history of STI, is monogamous with the . Her did not get any symptoms after the trip. PCP Jodie Rico Past surgical history; Partial hysterectomy Family history: Unremarkable Social history: Lives with , denies smoking, drank heavily during the vacation - quit since, denies illicit drug Patient seen and examined at bedside. Abdomen and pelvis CT which evidence pelvic abscess. Exploratory laparotomy with evacuation of pelvic abscess done on 01/20/24, colostomy bag is placed. Two JONATHAN drains were placed to lower portion of abdomen, liver biopsy was done at the time. Reviewed: Care Plan, H&P, Labs, Medications, Previous Orders, Radiology, Other (Consultants) Changes from previous H/P or p: No Changes Objective Vitals Vital Signs Date Time Temp Pulse Resp B/P (MAP) Pulse Ox O2 Delivery O2 Flow Rate FiO2 01/25/24 20:10 89 26 106/44 (64) 100 30 01/25/24 20:01 98.4 209.1 01/25/24 20:00 Mechanical Ventilator+ Intake/Output Intake and Output 01/25/24 05:00 Intake Total 2815.818 ml Output Total 4645 ml Balance -1829.182 ml IV Total 2815.818 ml Output Urine Total 2510 ml Urine/Stool Mix 30 ml Drainage Total 1115 ml Other 990 ml General Appearance: Other (Intubated and sedated) HEENT: Atraumatic, PERRLA Lungs: Clear to auscultation Cardiovascular: Regular rate Abdomen: Other (Serous drainage from lower abdominal wound. Clean wound. Darian in place.) Extremities: Other (edema) Neuro: Other (sedated and ventilated/has cough and gag reflex) Medications Current Medications Medications Dose Ordered Sig/Saige Route Start Time Stop Time Status Last Admin Dose Admin Pantoprazole Sodium 40 mg DAILY IV 12/26/23 10:00 01/25/24 10:03 40 MG Ipratropium [place] 0.5 mg Q6HR NEB 12/27/23 18:00 Cancel Amino Acids 0 ml @ 0 mls/hr PER PHARMACY IV 12/28/23 12:00 Diagnostic Test (Pha) 1 strip Q6HR 12/28/23 18:00 01/25/24 17:31 1 STRIP Insulin Human Regular FOLLOW SLIDING SCALE Q6HR SC 12/28/23 18:00 01/25/24 17:32 2 UNITS Dextrose 50 ml UD IV 12/28/23 13:00 Sodium Chloride 10 ml QSHIFT@10,22 IV 01/05/24 22:00 01/25/24 10:03 10 ML Enoxaparin Sodium 40 mg DAILY SC 01/13/24 10:00 Hold 01/14/24 12:50 40 MG Acetaminophen 1,000 mg Q8HP PRN IV 01/13/24 18:00 01/14/24 03:47 1,000 MG Meropenem 50 ml @ 17 mls/hr Q8H IV 01/14/24 20:00 01/25/24 19:52 17 MLS/HR Ipratropium [place] 0.5 mg Q6HPRN PRN NEB 01/14/24 18:30 01/23/24 18:38 0.5 MG Midazolam HCl 50 ml @ 1 mls/hr Q24H IV 01/14/24 20:00 01/25/24 20:29 15 MLS/HR Norepinephrine Bitartrate 32 mg/ Dextrose 250 ml @ 0.938 mls/ hr Q24H IV 01/23/24 16:30 Hold Norepinephrine Bitartrate 32 mg/ Sodium Chloride 250 ml @ 0.938 mls/ hr Q24H IV 01/23/24 23:30 01/24/24 18:09 0.938 MLS/HR Fentanyl Citrate 250 ml @ 2.5 mls/hr Q24H IV 01/23/24 23:30 01/25/24 18:28 35 MLS/HR Fat Emulsion Intravenous 50 ml/ Potassium Acetate 40 meq/Calcium Gluconate 1.65 meq/Magnesium Sulfate 4 meq/ Multivitamins 10 ml/Amino Acids/ Dextrose 1,034.5483 ml @ 43 mls/hr Q24H4M IV 01/24/24 22:00 01/25/24 21:59 01/24/24 21:23 43 MLS/HR Fluconazole 100 ml @ 100 mls/hr DAILY IV 01/24/24 11:45 01/25/24 09:31 100 MLS/HR Fat Emulsion Intravenous 50 ml/ Potassium Acetate 20 meq/Magnesium Sulfate 2 meq/ Multivitamins 10 ml/Amino Acids/ Dextrose 920.5 ml @ 38 mls/hr [id number] IV 01/25/24 22:00 01/26/24 21:59 Laboratory Results Laboratory Tests 01/25/24 10:30 Chemistry Test 01/25/24 10:30 Albumin 2.6 g/dL (3.2-4.8) L Calcium Level 8.6 mg/dL (8.7-10.4) L Magnesium Level 2.4 mg/dL (1.6-2.6) Phosphorus Level 6.1 mg/dL (2.4-5.1) H Total Protein 5.6 g/dL (5.7-8.2) L LFT Test 01/25/24 10:30 Alanine Aminotransferase (ALT) 135 U/L (7-40) H Alkaline Phosphatase 306 U/L (46-116) H Aspartate Amino Transferase (AST) 221 U/L (13-40) H Total Bilirubin 4.6 mg/dL (0.2-1.0) H Urinalysis Test 12/26/23 01:30 01/14/24 10:28 Urine Granular Casts Few /lpf (0) Urine Mucus Few (None Seen) Urine Yeast (Budding) Occasional /hpf (None Urine Creatinine 64.14 mg/dL (30.0-125.0) Urine Protein/Creatinine Ratio 1.97 Urine Sodium 35 mmol/L (40-220) L Urine Total Protein 126.3 mg/dL (1-14) H Urine Color Dark-yellow (Yellow) Urine Clarity Clear (Clear) Urine pH 5.5 (5.0-9.0) Urine Specific [place] 1.017 (1.001-1.035) Urine Protein 1+ (Negative) H Urine Ketones Negative (Negative) Urine Blood 1+ /uL (Negative) H Urine Nitrite Negative (Negative) Urine Bilirubin 1+ (Negative) H Urine Urobilinogen Normal mg/dL (Negative) Urine Leukocyte Esterase Negative /uL (Negative) Urine RBC 3 /hpf (0 - 4) Urine WBC 2 /hpf (0 - 5) Urine Squamous Epithelial Cells Few /hpf (<5) Urine Bacteria None seen /hpf (None Seen) Urine Hyaline Casts Few /lpf (0 - 2) Urine Glucose Normal mg/dL (Normal) Blood Gas Results Test 01/25/24 07:10 Arterial Blood pH 7.312 (7.350-7.450) FiO2 % 30.0 Microbiology Microbiology Date/Time Source Procedure Growth Status 01/20/24 14:32 Peritoneal Fluid Gram Stain - Final Complete 01/20/24 14:32 Peritoneal Fluid Anaerobic Culture - Final Complete 01/20/24 14:32 Peritoneal Fluid Aerobic Culture - Final Complete 01/14/24 19:03 Trachea Gram Stain - Final Complete 01/14/24 19:03 Respiratory Culture - Final Yeast, not Ayse albicans Complete 01/14/24 10:28 Voided Urine Urine Culture - Final Complete 01/14/24 10:25 Blood Blood Culture - Final NO GROWTH AFTER 5 DAYS OF INCUBATION. Complete 01/12/24 16:13 Sputum Gram Stain - Final Complete 01/12/24 16:13 Respiratory Culture - Final Enterobacter cloacae Complete 12/18/23 13:03 Stool Stool Culture - Final Complete 12/18/23 13:03 Stool Shiga Toxin I & II - Final Complete Assessment/Plan Assessment/Plan Neurology: Metabolic encephalopathy probably secondary to sepsis Currently patient is intubated Currently under empiric IV antibiotic (meropenem and Linezolid) Completed multiple head CTs with no acute intracranial pathology Cardiovascular Acute on chronic systolic congestive heart failure (HFrEF, LVEF 35%)-status post ICD placement And is on Bumex drip Echocardiogram during this admission: Severely reduced LVEF, 35%, anterior anteroapical wall akinesia, moderately reduced RV systolic function, rest of study within normal limits. History of coronary artery disease with cardiac arrest (VFib/V-tach) - status post PCI with stent placements Currently aspirin on hold (INR of 2). Completed stress test which showed no ischemia, multiple territories of infarcts NSTEMI type 2 Secondary to septic shock. Stress test negative for ischemia Respiratory Acute respiratory failure due to Multiple pneumonia secondary to Enterobacter cloacae and Klebsiella Ruled out Ventilator associated Pneumonia currently is intubated on 01/14/2024 (VCV VT 450, RR 22, peep five, FiO2 30%) Completed new bronchoscopy 01/14/2024 since samples for culture and pathology. Aspiration pneumonia due to Gm +/- Bacteria. Secondary to Gastrografin study. Required endotracheal intubation on 01/14/2024 and bronchoscopy, Multiple pneumonia secondary to Enterobacter cloacae and Klebsiella Completed multiple courses of antibiotics, now on meropenem and Linezolid. Gastrointestinal Bowel obstruction secondary to sigmoid adenocarcinoma with hepatic metastasis - status post colectomy with terminal-terminal anastomosis Completed colectomy with terminal terminal anastomosis on 12/25/2023, with previous cardiological clearance. specialist employee labor relations on board. Pelvic abscess - status post drainage abdomen and pelvis CT with contrast which shows abscess and pelvic area. Exploratory laparotomy with evacuation of pelvic abscess done on 01/20/24, colostomy bag is placed. Two JONATHAN drains were placed to lower portion of abdomen, Hepatomegaly secondary to liver metastasis due to sigmoid adenocarcinoma Monitor CMP and coagulation Transaminitis Secondary to above Genitourinary/Nephrology History of multiple UTIs Last urine culture with no evidence of bacterial growth Metabolic Hypernatremia -Resolved Infectious Disease Septic shock probably secondary to aspiration pneumonia versus pelvic abscess - resolved Required maximum dose of vasopressors (four IV vasopressors). Currently with no IV vasopressors Completed multiple courses of antibiotic (febrile since tazobactam for two days, ceftriaxone for one day, vancomycin previously for 12 days, meropenem previously four 12 days) Multiple cultures completed, only positive 3 times sputum for Enterobacter cloacae (pelvic fluid, blood, and urine culture negative) Id specialist on board Persistent sepsis probably secondary to pelvic abscess Completed new abdomen and pelvis CT with contrast which evidence abscess and pelvic area. abscess drainage on 01/20/24 by the surgeon. Currently under empiric IV antibiotic (Linezolid and meropenem) Hematology Persistent leukocytosis Probably secondary to pelvic abscess Coagulopathy secondary to sepsis INR on 01/19/2024 approximately 1.57 We will hold enoxaparin and aspirin Nutrition: TPN, no enteral feeding until bowel motility evaluated (has to be cleared by surgical scrub technologist) Prophylaxis for PUD and DVT: Currently on pantoprazole and SCDs Lines Left arm PICC line placed on 01/07/2024 New Azar catheter 01/14/2024 ET tube 01/14/2024 Drips Versed Fentanyl NE Bumex Exploratory laparotomy with evacuation of pelvic abscess done on 01/20/24, colostomy bag is placed. Two JONATHAN drains were placed to lower portion of abdomen, Critical Care time spent 52 minutes including, patient care, chart review and updating family, excluding procedure. code status discussed with : Full Code for now. Plan discussed with: Other (nurse) My Orders Orders - CASTRO FRANK MD Procedure Category Date Status Time Complete Blood Count LAB 01/26/24 Verified 04:00 Chest Portable XY 01/26/24 Logged 04:00 Abg W/ Co-Ox RT 01/26/24 Logged 06:00 Date of Service: Jan 25, 2024 Billing Provider: CASTRO FRANK MD Common Visit Codes: [id number] CARE 30-74 MIN CASTRO FRANK MD Jan 25, 2024 20:54
[2024-01-25] MEDS: TPN PER PHARMACY IV NR (21:44)
[2024-01-26] VITALS (103 sets, daily range): BP systolic 82–147; BP diastolic 23–57; PULSE 89–115; RESP 17–50; TEMP 99.1–100.9; O2SAT 90–100
--- NOTE | 2024-01-26 04:53 | DVH ---
CHEST RADIOGRAPH Indication: ET PLACEMENT Technique: Single frontal view of the chest was obtained COMPARISON: XY CHEST PORTABLE on DOS: 01/25/24, XY CHEST XRAY 1 VIEW on DOS: 01/24/24, XY CHEST XRAY 1 VIEW on DOS: 01/23/24 FINDINGS: Lines and Tubes: Left chest wall AICD. Endotracheal tube and enteric catheter in satisfactory positi on. Left PICC in satisfactory position. Lungs: Mild congestion Pleura: No effusion. No pneumothorax. Cardiomediastinal contours: Cardiomegaly Bones: Unremarkable IMPRESSION: Lines and tubes in satisfactory position. No significant interval change.
[2024-01-26 07:46] LABS: Anion Gap 11 (5-15); Carbon Dioxide 23 mmol/L (20-31); Magnesium 2.3 mg/dL (1.6-2.6); Potassium 4.1 mmol/L (3.5-5.1); Total Protein 5.7 g/dL (5.7-8.2)
[2024-01-26 08:00] LABS: Alanine Aminotransferase 165 U/L (7-40); Albumin 2.5 g/dL (3.2-4.8); Alkaline Phosphatase 370 U/L (46-116); Aspartate Aminotransferase 281 U/L (13-40); Bilirubin, Total 5.4 mg/dL (0.2-1.0); Calcium 8.4 mg/dL (8.7-10.4); Chloride 112 mmol/L (98-107); Glucose 139 mg/dL (74-106); Phosphorus 5.4 mg/dL (2.4-5.1); Sodium 146 mmol/L (136-145); Triglycerides 273 mg/dL (< 150)
[2024-01-26 08:04] LABS: Blood Urea Nitrogen 94 mg/dL (9-23)
--- NOTE | 2024-01-26 08:04 | DVHPNRES ---
Progress Note Date Seen: Jan 26, 2024 Resident Creating Document: NICHOLE CANCINO RESIDENT Medical Necessity Reason Pt with a Central, PICC or Fol: Yes The following are medically ne: PICC Line, Davies Catheter Reason for davies catheter: Strict I&O Subjective Review of Systems A 63-year-old female patient with PMHx of systolic heart failure status post Medtronic ICD placement -last EF 35% in September2023, CAD status post 4 RYAN in January 2018 , dyslipidemia, recurrent UTIs and pyelonephritis for the past 4 months, hypertension and internal hemorrhoids presented to the ER with a chief complaint of suprapubic abdominal pain and constipation. Patient recently visited [facility] in August this year with her when she went [place] the [place] and had bite dong all over the body, following which she has been getting recurrent UTIs and pyelonephritis starting September, also reports dry cough since the visit. She reports that the abdominal pain started 12/10 and is associated with tenesmus, she only passes small pellet-like stools associated with mucus and a lot of flatus. Also reports history of internal hemorrhoids and that she is experiencing bright red bleed per rectum for the past few days. She denies lifetime history of colonoscopy/endoscopy. Reports nausea, chills on and off but no fever. Denies lifetime history of STI, is monogamous with the . Her did not get any symptoms after the trip. PCP Jodie Rico Past surgical history; Partial hysterectomy Family history: Unremarkable Social history: Lives with , denies smoking, drank heavily during the vacation - quit since, denies illicit drug Patient seen and examined at bedside. Abdomen and pelvis CT which evidence pelvic abscess. Exploratory laparotomy with evacuation of pelvic abscess done on 01/20/24, colostomy bag is in placed. Two JONATHAN drains were placed to lower portion of abdomen, liver biopsy was done at the time. Objective vital signs Vital Sign Date Time Temp Pulse Resp B/P (MAP) Pulse Ox O2 Delivery O2 Flow Rate FiO2 01/26/24 07:44 112 34 110/50 (70) 98 30 01/26/24 06:30 99.9 211.8 01/26/24 06:00 Mechanical Ventilator+ Total Intake and Output 01/25/24 01/25/24 01/26/24 15:00 23:00 07:00 Intake Total 869.628 ml 1538.104 ml 973.566 ml Output Total 1585 ml 1480 ml Balance 869.628 ml -46.896 ml -506.434 ml medications Current Medications Medications Dose Ordered Sig/Saige Route Start Time Stop Time Status Last Admin Dose Admin Pantoprazole Sodium 40 mg DAILY IV 12/26/23 10:00 01/25/24 10:03 40 MG Ipratropium [place] 0.5 mg Q6HR NEB 12/27/23 18:00 Cancel Amino Acids 0 ml @ 0 mls/hr PER PHARMACY IV 12/28/23 12:00 Diagnostic Test (Pha) 1 strip Q6HR 12/28/23 18:00 01/26/24 05:41 1 STRIP Insulin Human Regular FOLLOW SLIDING SCALE Q6HR SC 12/28/23 18:00 01/26/24 05:41 2 UNITS Dextrose 50 ml UD IV 12/28/23 13:00 Sodium Chloride 10 ml QSHIFT@10,22 IV 01/05/24 22:00 01/25/24 21:45 10 ML Enoxaparin Sodium 40 mg DAILY SC 01/13/24 10:00 Hold 01/14/24 12:50 40 MG Acetaminophen 1,000 mg Q8HP PRN IV 01/13/24 18:00 01/14/24 03:47 1,000 MG Meropenem 50 ml @ 17 mls/hr Q8H IV 01/14/24 20:00 01/26/24 03:32 17 MLS/HR Ipratropium [place] 0.5 mg Q6HPRN PRN NEB 01/14/24 18:30 01/23/24 18:38 0.5 MG Midazolam HCl 50 ml @ 1 mls/hr Q24H IV 01/14/24 20:00 01/26/24 06:18 15 MLS/HR Norepinephrine Bitartrate 32 mg/ Dextrose 250 ml @ 0.938 mls/ hr Q24H IV 01/23/24 16:30 Hold Norepinephrine Bitartrate 32 mg/ Sodium Chloride 250 ml @ 0.938 mls/ hr Q24H IV 01/23/24 23:30 01/24/24 18:09 0.938 MLS/HR Fentanyl Citrate 250 ml @ 2.5 mls/hr Q24H IV 01/23/24 23:30 12/9/24 01:46 35 MLS/HR Fluconazole 100 ml @ 100 mls/hr DAILY IV 01/24/24 11:45 01/25/24 09:31 100 MLS/HR Fat Emulsion Intravenous 50 ml/ Potassium Acetate 20 meq/Magnesium Sulfate 2 meq/ Multivitamins 10 ml/Amino Acids/ Dextrose 920.5 ml @ 38 mls/hr [id number] IV 01/25/24 22:00 01/26/24 21:59 01/25/24 21:44 38 MLS/HR Examination Gen. Sedated, intubated on mechanical ventilator. Head: Normocephalic, atraumatic. Eyes: PERRLA. Ears: Normal external anatomy. Throat: Endotracheal tube and orogastric tube in place. Neck: Supple, trachea midline. Chest: Transmitted breath sounds bilaterally. Decreased air entry bilaterally. No wheezing. Bibasilar crackles. Cardiovascular: Positive S1, positive S2. Regular rate and rhythm. Abdomen: Positive bowel sounds in all 4 quadrants. Soft, nontender, nondistended. : Davies in place. Normal external genitalia. Skin: Warm, dry. Intact. Extremities: 2+ radial pulses bilaterally. No lower extremity edema. Neuro: Sedated. laboratory and microbiology Test 01/26/24 06:28 Range/Units Serum Glucose Pending Microbiology Date/Time Source Procedure Growth Status 01/20/24 14:32 Peritoneal Fluid Gram Stain - Final Complete 01/20/24 14:32 Peritoneal Fluid Anaerobic Culture - Final Complete 01/20/24 14:32 Peritoneal Fluid Aerobic Culture - Final Complete 01/14/24 19:03 Trachea Gram Stain - Final Complete 01/14/24 19:03 Respiratory Culture - Final Yeast, not Ayse albicans Complete 01/14/24 10:28 Voided Urine Urine Culture - Final Complete 01/14/24 10:25 Blood Blood Culture - Final NO GROWTH AFTER 5 DAYS OF INCUBATION. Complete 01/12/24 16:13 Sputum Gram Stain - Final Complete 01/12/24 16:13 Respiratory Culture - Final Enterobacter cloacae Complete 12/18/23 13:03 Stool Stool Culture - Final Complete 12/18/23 13:03 Stool Shiga Toxin I & II - Final Complete Problem List/Assessment/Plan Problem List/Assessment/Plan Neurology: Metabolic encephalopathy probably secondary to sepsis Currently patient is intubated Currently under empiric IV antibiotic (meropenem and Vanco) Completed multiple head CTs with no acute intracranial pathology Cardiovascular Acute on chronic systolic congestive heart failure (HFrEF, LVEF 35%)-status post ICD placement And is on Bumex drip Echocardiogram during this admission: Severely reduced LVEF, 35%, anterior anteroapical wall akinesia, moderately reduced RV systolic function, rest of study within normal limits. History of coronary artery disease with cardiac arrest (VFib/V-tach) - status post PCI with stent placements Currently aspirin on hold (INR of 2). Completed stress test which showed no ischemia, multiple territories of infarcts NSTEMI type 2 Secondary to septic shock. Stress test negative for ischemia Respiratory Acute respiratory failure due to Multiple pneumonia secondary to Enterobacter cloacae and Klebsiella Ruled out Ventilator associated Pneumonia currently is intubated on 01/14/2024 (VCV VT 450, RR 22, peep five, FiO2 30%) Completed new bronchoscopy 01/14/2024 since samples for culture and pathology. Aspiration pneumonia due to Gm +/- Bacteria. Secondary to Gastrografin study. Required endotracheal intubation on 01/14/2024 and bronchoscopy, Multiple pneumonia secondary to Enterobacter cloacae and Klebsiella Completed multiple courses of antibiotics, now on meropenem and Vanco Gastrointestinal Bowel obstruction secondary to sigmoid adenocarcinoma with hepatic metastasis - status post colectomy with terminal-terminal anastomosis Completed colectomy with terminal terminal anastomosis on 12/25/2023, with previous cardiological clearance. small engine specialist on board. Pelvic abscess - status post drainage abdomen and pelvis CT with contrast which shows abscess and pelvic area. Exploratory laparotomy with evacuation of pelvic abscess done on 01/20/24, colostomy bag is placed. Two JONATHAN drains were placed to lower portion of abdomen, Hepatomegaly secondary to liver metastasis due to sigmoid adenocarcinoma Monitor CMP and coagulation Transaminitis Secondary to above Genitourinary/Nephrology History of multiple UTIs Last urine culture with no evidence of bacterial growth Metabolic Hypernatremia -Resolved Infectious Disease Septic shock probably secondary to aspiration pneumonia versus pelvic abscess - resolved Required maximum dose of vasopressors (four IV vasopressors). Currently with no IV vasopressors Completed multiple courses of antibiotic (febrile since tazobactam for two days, ceftriaxone for one day, vancomycin previously for 12 days, meropenem previously four 12 days) Multiple cultures completed, only positive 3 times sputum for Enterobacter cloacae (pelvic fluid, blood, and urine culture negative) Id specialist on board Persistent sepsis probably secondary to pelvic abscess Completed new abdomen and pelvis CT with contrast which evidence abscess and pelvic area. abscess drainage on 01/20/24 by the surgeon. Currently under empiric IV antibiotic (Vanco and meropenem) Hematology Persistent leukocytosis Probably secondary to pelvic abscess Coagulopathy secondary to sepsis INR on 01/19/2024 approximately 1.57 We will hold enoxaparin and aspirin Nutrition: TPN, no enteral feeding until bowel motility evaluated (has to be cleared by neurosurgical physician assistant) Prophylaxis for PUD and DVT: Currently on pantoprazole and Lovenox Lines Left arm PICC line placed on 01/07/2024 New Davies catheter 01/14/2024 ET tube 01/14/2024 Drips Versed Fentanyl NE Bumex Exploratory laparotomy with evacuation of pelvic abscess done on 01/20/24, colostomy bag is placed. Two JONATHAN drains were placed to lower portion of abdomen, Had a long discussion with pt's ( Ronal), discussed about poor prognosis and advanced care. Pt's made the Code status to DNR. Will discussed to the family for the final decision. Critical Care time spent 83 minutes including Family meeting, patient care, chart review and updating family, excluding procedure. DNR Case discussed with Dr Ojeda Plan discussed with: Spouse, Other (RN) Dietary Evaluation Review Comments: 1) Advance pt diet when medically feasible to a Cardiac diet 2) Continue current plan of care Expected Outcomes/Goals: 1) F/U in 3-5 days Date of Service: Jan 26, 2024 Billing Provider: KATERINA OJEDA MD Common Visit Codes: [id number] CARE 30-74 MIN, [id number] CARE-EACH +30MIN NICHOLE CANCINO RESIDENT Jan 26, 2024 08:04 KATERINA OJEDA MD Jan 27, 2024 14:48
[2024-01-26 09:30] LABS: Base Excess -4.4 mmol/L (-2.0-3.0)
[2024-01-26 11:01] LABS: Red Blood Cells 3.18 10^6/uL (4.0-5.20)
[2024-01-26 11:04] LABS: Hematocrit 26.7 % (36.0-46.0); Hemoglobin 8.5 g/dL (12.2-16.2); Mean Corpuscular Hemoglobin 26.9 pg (28.0-32.0); Platelet Count (auto) 280 10^3/uL (140-450)
[2024-01-26 11:17] LABS: Red Cell Distribution Width 26.1 % (11.8-14.3)
[2024-01-26 11:19] LABS: White Blood Cell 34.5 10^3/uL (4.4-10.8)
[2024-01-26 11:20] LABS: Band Neutrophils % (manual) 0; Basophils % (manual) 0 (0.0-2.0); Blast Cells 0; Eosinophils % (manual) 0 (0-7); Metamyelocytes % 0; Myelocytes % 0; Promyelocytes % 0; Reactive Lymphocytes 0
[2024-01-26 11:45] LABS: Lymphocytes % (manual) 6 (10.0-50.0); Monocytes % (manual) 6 (0-12)
[2024-01-26 11:46] LABS: Anisocytosis Slight; Hypochromia Moderate
[2024-01-26 11:47] LABS: Platelet Estimate Adequate; Target Cell FEW
--- NOTE | 2024-01-26 12:31 | DVHPN2 ---
Progress Note Date Seen: Jan 26, 2024 Medical Necessity Reason Pt with a Central, PICC or Fol: Yes The following are medically ne: PICC Line, Davies Catheter Reason for davies catheter: Strict I&O Objective vital signs Vital Sign Date Time Temp Pulse Resp B/P (MAP) Pulse Ox O2 Delivery O2 Flow Rate FiO2 01/26/24 11:07 102 31 102/32 (55) 100 30 01/26/24 10:00 Mechanical Ventilator+ 01/26/24 06:30 99.9 211.8 Total Intake and Output 01/25/24 01/25/24 01/26/24 15:00 23:00 07:00 Intake Total 869.628 ml 1538.104 ml 973.566 ml Output Total 1585 ml 1480 ml Balance 869.628 ml -46.896 ml -506.434 ml medications Current Medications Medications Dose Ordered Sig/Saige Route Start Time Stop Time Status Last Admin Dose Admin Pantoprazole Sodium 40 mg DAILY IV 12/26/23 10:00 01/26/24 08:59 40 MG Ipratropium [place] 0.5 mg Q6HR NEB 12/27/23 18:00 Cancel Amino Acids 0 ml @ 0 mls/hr PER PHARMACY IV 12/28/23 12:00 Diagnostic Test (Pha) 1 strip Q6HR 12/28/23 18:00 01/26/24 11:25 1 STRIP Insulin Human Regular FOLLOW SLIDING SCALE Q6HR SC 12/28/23 18:00 01/26/24 05:41 2 UNITS Dextrose 50 ml UD IV 12/28/23 13:00 Sodium Chloride 10 ml QSHIFT@10,22 IV 01/05/24 22:00 01/26/24 09:07 10 ML Enoxaparin Sodium 40 mg DAILY SC 01/13/24 10:00 Hold 01/14/24 12:50 40 MG Acetaminophen 1,000 mg Q8HP PRN IV 01/13/24 18:00 01/26/24 09:45 1,000 MG Meropenem 50 ml @ 17 mls/hr Q8H IV 01/14/24 20:00 01/26/24 12:11 17 MLS/HR Ipratropium [place] 0.5 mg Q6HPRN PRN NEB 01/14/24 18:30 01/23/24 18:38 0.5 MG Midazolam HCl 50 ml @ 1 mls/hr Q24H IV 01/14/24 20:00 01/26/24 12:14 15 MLS/HR Norepinephrine Bitartrate 32 mg/ Dextrose 250 ml @ 0.938 mls/ hr Q24H IV 01/23/24 16:30 Hold Norepinephrine Bitartrate 32 mg/ Sodium Chloride 250 ml @ 0.938 mls/ hr Q24H IV 01/23/24 23:30 01/24/24 18:09 0.938 MLS/HR Fentanyl Citrate 250 ml @ 2.5 mls/hr Q24H IV 01/23/24 23:30 01/26/24 08:46 35 MLS/HR Fluconazole 100 ml @ 100 mls/hr DAILY IV 01/24/24 11:45 01/26/24 09:00 100 MLS/HR Fat Emulsion Intravenous 50 ml/ Potassium Acetate 20 meq/Magnesium Sulfate 2 meq/ Multivitamins 10 ml/Amino Acids/ Dextrose 920.5 ml @ 38 mls/hr [id number] IV 01/25/24 22:00 01/26/24 21:59 01/25/24 21:44 38 MLS/HR Potassium Acetate 40 meq/Magnesium Sulfate 4 meq/ Multivitamins 10 ml/Amino Acids/ Dextrose 931 ml @ 39 mls/hr [id number] IV 01/26/24 22:00 01/27/24 21:59 laboratory and microbiology Laboratory Tests 01/26/24 10:30 01/26/24 06:28 Test 01/26/24 06:28 Range/Units Serum Glucose 139 H 74-106 mg/dL Problem List/Assessment/Plan Problem List/Assessment/Plan 01/06/[address] Aditi BUCKLEY, ABDOMEN APPEARS TO BE TENDER IN THE LEFT LOWER QUADRANT, WOUND IS CLEAN AND WELL APPROXIMATED, DRAINAGE FROM LOWER PORTION OF MIDLINE WOUND.AWAITING ir intervention 01/07/24 essentially unchanged, continues hypotensive with leukocytosis, abdomen "full", no BM or flatus reported, spoke to interventional radiologist, he will proceed with drainage of pelvic fluid collection via transgluteal approach 01/08/24 slightly improved, discussed pelvic fluid drainage with radiologist,abdomen soft, non distended, continue current treatments 01/09/24 slightly improved, abdomen less tense, wound clean ,drainage clear, good urine output, less pressors requirement 01/10/24 wbc slightly better, wound ok, abdomen soft and non distended, no BM, will add reglan, once she passes flatus NG tube can be DC'd 01/11/24 'S QUESTIONS ANSWERED, SHE CONTINUES UNCHANGED, WOUND CLEAN ,ABDOMEN NON DISTENDED 01/12/24 abdomen non distended, appears non tender()pt awakens), wound clean and well approximated, undergoing CPAP trial 01/14/24 abdomen benign, sepsis persists, will get gastrografin small bowel series in hope of starting po intake 01/15/24 patient aspirated yesterday and was re intubated, there is what appears a large fluid collection/abscess in the pelvis which could be due to an anastomotic colon leak, I thoroughly explained to (patient sedated) that if radiologist not available to do a ct guided aspiration, she would need an operation to drain the pelvic abscess and could end up with a colostomy. I showed the patient's CT scan images to the and explained that the liver is essentially replaced with what appears to be malignant deposits. I told him to "think hard about what would his want" if she were able to make a decision for her self in this situation. 01/17/24 apparently no radiologist is on premisses till Friday, not at bedside this morning, patient essentially clinically unchanged, will wait to hear from patient's about family's wishes 01/19/24 radiologist not able to do percutaneous drainage patient continues to be septic, will proceed with operation Friday . operation, colostomy etc, previously explained to patient's who left a message with patient's nurse that he wished tyo proceed with the operation even though I explained to him that the patient will ultimately probably of her cancer 01/21/24 sedated, on mechanical ventilator, essentially unchanged from pre op condition, abdomen non distended, wound dressing clean, scotty drainage non sanguineous, stoma viable without function. 01/22/24 anasarca, wound clean and well approximated, urine output adequate, abdomen non distended. BP improved 01/25/24 leukocytosis, wound clean and well approximated, stoma viable with some flatus, drainage serous, continues with anasarca 01/26/24 remains sedated on ventilator, anasarca continues, wound clean , abdomen non distended, stoma viable Plan discussed with: Other Dietary Evaluation Review Comments: 1) Advance pt diet when medically feasible to a Cardiac diet 2) Continue current plan of care Expected Outcomes/Goals: 1) F/U in 3-5 days ASPEN EUBANKS MD Jan 26, 2024 12:31
--- NOTE | 2024-01-26 15:01 | DVHPN2 ---
Progress Note Date Seen: Jan 26, 2024 Medical Necessity Reason Pt with a Central, PICC or Fol: Yes The following are medically ne: PICC Line, Davies Catheter Reason for davies catheter: Strict I&O Subjective Patient reports: Other (intubated) Review of Systems: Deferred Objective vital signs Vital Sign Date Time Temp Pulse Resp B/P (MAP) Pulse Ox O2 Delivery O2 Flow Rate FiO2 01/26/24 13:00 99.7 97 26 92/30 (50) 98 211.5 01/26/24 12:36 30 01/26/24 12:00 Mechanical Ventilator+ Total Intake and Output 01/25/24 01/25/24 01/26/24 15:00 23:00 07:00 Intake Total 869.628 ml 1538.104 ml 1062.504 ml Output Total 1585 ml 1480 ml Balance 869.628 ml -46.896 ml -417.496 ml medications Current Medications Medications Dose Ordered Sig/Saige Route Start Time Stop Time Status Last Admin Dose Admin Pantoprazole Sodium 40 mg DAILY IV 12/26/23 10:00 01/26/24 08:59 40 MG Ipratropium [place] 0.5 mg Q6HR NEB 12/27/23 18:00 Cancel Amino Acids 0 ml @ 0 mls/hr PER PHARMACY IV 12/28/23 12:00 Diagnostic Test (Pha) 1 strip Q6HR 12/28/23 18:00 01/26/24 11:25 1 STRIP Insulin Human Regular FOLLOW SLIDING SCALE Q6HR SC 12/28/23 18:00 01/26/24 05:41 2 UNITS Dextrose 50 ml UD IV 12/28/23 13:00 Sodium Chloride 10 ml QSHIFT@10,22 IV 01/05/24 22:00 01/26/24 09:07 10 ML Acetaminophen 1,000 mg Q8HP PRN IV 01/13/24 18:00 01/26/24 09:45 1,000 MG Meropenem 50 ml @ 17 mls/hr Q8H IV 01/14/24 20:00 01/26/24 12:11 17 MLS/HR Ipratropium [place] 0.5 mg Q6HPRN PRN NEB 01/14/24 18:30 01/23/24 18:38 0.5 MG Midazolam HCl 50 ml @ 1 mls/hr Q24H IV 01/14/24 20:00 01/26/24 12:14 15 MLS/HR Norepinephrine Bitartrate 32 mg/ Dextrose 250 ml @ 0.938 mls/ hr Q24H IV 01/23/24 16:30 Hold Norepinephrine Bitartrate 32 mg/ Sodium Chloride 250 ml @ 0.938 mls/ hr Q24H IV 01/23/24 23:30 01/24/24 18:09 0.938 MLS/HR Fentanyl Citrate 250 ml @ 2.5 mls/hr Q24H IV 01/23/24 23:30 01/26/24 08:46 35 MLS/HR Fluconazole 100 ml @ 100 mls/hr DAILY IV 01/24/24 11:45 01/26/24 09:00 100 MLS/HR Fat Emulsion Intravenous 50 ml/ Potassium Acetate 20 meq/Magnesium Sulfate 2 meq/ Multivitamins 10 ml/Amino Acids/ Dextrose 920.5 ml @ 38 mls/hr [id number] IV 01/25/24 22:00 01/26/24 21:59 01/25/24 21:44 38 MLS/HR Potassium Acetate 40 meq/Magnesium Sulfate 4 meq/ Multivitamins 10 ml/Amino Acids/ Dextrose 931 ml @ 39 mls/hr [id number] IV 01/26/24 22:00 01/27/24 21:59 Examination: MSK:Abnormal (edema) laboratory and microbiology Laboratory Tests 01/26/24 10:30 01/26/24 06:28 Test 01/26/24 06:28 Range/Units Serum Glucose 139 H 74-106 mg/dL Microbiology Date/Time Source Procedure Growth Status 01/20/24 14:32 Peritoneal Fluid Gram Stain - Final Complete 01/20/24 14:32 Peritoneal Fluid Anaerobic Culture - Final Complete 01/20/24 14:32 Peritoneal Fluid Aerobic Culture - Final Complete 01/14/24 19:03 Trachea Gram Stain - Final Complete 01/14/24 19:03 Respiratory Culture - Final Yeast, not Ayse albicans Complete 01/14/24 10:28 Voided Urine Urine Culture - Final Complete 01/14/24 10:25 Blood Blood Culture - Final NO GROWTH AFTER 5 DAYS OF INCUBATION. 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
[2024-01-26] MEDS ORDERED: VANCOMYCIN PER PHARMACY 0 MG IV SCH (16:45)
[2024-01-26] MEDS ORDERED: Nepro With Carb Steady 1 Liter Bottle GT SCH (16:45)
[2024-01-26] MEDS: VANCOMYCIN 1GM/250ML KIT 250 ML IV ONE (17:58)
[2024-01-26] MEDS: [UNRECOGNIZED DRUG - OTHER] IV NR (21:37)
[2024-01-26] MEDS: MAGNESIUM SULF IV NR (21:37)
[2024-01-26] MEDS: POTASSIUM ACETATE IV NR (21:37)
--- NOTE | 2024-01-26 23:23 | DVHPN2 ---
Progress Note - Dictate Date Seen: Jan 26, 2024 Medical Necessity Reason Pt with a Central, PICC or Fol: Yes The following are medically ne: PICC Line, Davies Catheter Reason for davies catheter: Strict I&O Subjective She is sedated, intubated on mechanical ventilator, abdomen non distended, stoma viable WBC is elevated at 34k rash seems to have improved Antibiotic status: Vancomycin HCl 200 ml @ 200 mls/hr - [Started 12/31 - 01/15] Linezolid [ started 01/17 - Ongoing] Meropenem 50 ml @ 17 mls/hr - [Started - 01/02 - stopped] ; restarted 01/13 - Ongoing 01/24 Chest radiograph : There are low lung volumes. Patchy airspace opacity in the right lung base. No sizable effusion or pneumothorax. Endotracheal and enteric tube appear unchanged in satisfactory in position. Multi lead left cardiac device. No significant interval change. vital signs Vital Sign Date Time Temp Pulse Resp B/P (MAP) Pulse Ox O2 Delivery O2 Flow Rate FiO2 01/26/24 15:46 99.3 93 26 105/32 (56) 99 210.7 01/26/24 14:20 30 01/26/24 12:00 Mechanical Ventilator+ Total Intake and Output 01/25/24 01/25/24 01/26/24 15:00 23:00 07:00 Intake Total 869.628 ml 1538.104 ml 1062.504 ml Output Total 1585 ml 1480 ml Balance 869.628 ml -46.896 ml -417.496 ml medications Current Medications Medications Dose Ordered Sig/Saige Route Start Time Stop Time Status Last Admin Dose Admin Pantoprazole Sodium 40 mg DAILY IV 12/26/23 10:00 01/26/24 08:59 40 MG Ipratropium [place] 0.5 mg Q6HR NEB 12/27/23 18:00 Cancel Amino Acids 0 ml @ 0 mls/hr PER PHARMACY IV 12/28/23 12:00 Diagnostic Test (Pha) 1 strip Q6HR 12/28/23 18:00 01/26/24 11:25 1 STRIP Insulin Human Regular FOLLOW SLIDING SCALE Q6HR SC 12/28/23 18:00 01/26/24 05:41 2 UNITS Dextrose 50 ml UD IV 12/28/23 13:00 Sodium Chloride 10 ml QSHIFT@10,22 IV 01/05/24 22:00 01/26/24 09:07 10 ML Acetaminophen 1,000 mg Q8HP PRN IV 01/13/24 18:00 01/26/24 09:45 1,000 MG Meropenem 50 ml @ 17 mls/hr Q8H IV 01/14/24 20:00 01/26/24 12:11 17 MLS/HR Ipratropium [place] 0.5 mg Q6HPRN PRN NEB 01/14/24 18:30 01/23/24 18:38 0.5 MG Midazolam HCl 50 ml @ 1 mls/hr Q24H IV 01/14/24 20:00 01/26/24 15:32 15 MLS/HR Norepinephrine Bitartrate 32 mg/ Dextrose 250 ml @ 0.938 mls/ hr Q24H IV 01/23/24 16:30 Hold Norepinephrine Bitartrate 32 mg/ Sodium Chloride 250 ml @ 0.938 mls/ hr Q24H IV 01/23/24 23:30 01/24/24 18:09 0.938 MLS/HR Fentanyl Citrate 250 ml @ 2.5 mls/hr Q24H IV 01/23/24 23:30 01/26/24 08:46 35 MLS/HR Fluconazole 100 ml @ 100 mls/hr DAILY IV 01/24/24 11:45 01/26/24 09:00 100 MLS/HR Fat Emulsion Intravenous 50 ml/ Potassium Acetate 20 meq/Magnesium Sulfate 2 meq/ Multivitamins 10 ml/Amino Acids/ Dextrose 920.5 ml @ 38 mls/hr [id number] IV 01/25/24 22:00 01/26/24 21:59 01/25/24 21:44 38 MLS/HR Potassium Acetate 40 meq/Magnesium Sulfate 4 meq/ Multivitamins 10 ml/Amino Acids/ Dextrose 931 ml @ 39 mls/hr [id number] IV 01/26/24 22:00 01/27/24 21:59 objective General.: Patient lying in bed in medical ICU. Sedated, intubated on mechanical ventilator. Head: Normocephalic, atraumatic. Eyes: PERRLA. Ears: Normal external anatomy. Throat: Endotracheal tube and orogastric tube in place. Neck: Supple, trachea midline. Chest: Transmitted breath sounds bilaterally. Decreased air entry bilaterally. No wheezing. Bibasilar crackles. Cardiovascular: Positive S1, positive S2. Regular rate and rhythm. Abdomen: s/p ex lap, JONATHAN drain +, stoma + : Davies in place. Normal external genitalia. Skin: rash + ( improving) Extremities: 2+ radial pulses bilaterally. +4 pitting edema. Neuro: Sedated. laboratory and microbiology Laboratory Tests 01/26/24 10:30 01/26/24 06:28 Test 01/26/24 06:28 Range/Units Serum Glucose 139 H 74-106 mg/dL Assessment/Plan Patient is a 64-year-old female presents to the hospital with: skin rash possible drug related Pelvic abscess; colon leak vs ascites septic shock vs distributive shock leucocytosis Ventilator associated Pneumonia : [place] large bowel obstruction s/p colectomy s/p end to end anastomosis 12/24 possible colon cancer with mets ascites: malignant vs post surgical vs infection Liver mets acute hypoxic respiratory failure on mechanical ventilation CHF anasarca Recommendations: skin rash is improving Discussed with RN, possible plan for Terminal wean in 24-48 hours due to poor prognosis Skin rash likely due to drug related, among Micafungin, Linezolid and MEropenem the likely culprit is Micafungin > meropenem > Zyvox cont Fluconazole, cont meropenem for now, . OR cx 01/19, Aerobic and Anaerobic culture: prelim negative ; follow repeat Ct abdomen and pelvis shows large collection, concern fo colon leak/ abscess/ ascites s/p Ex lap, 01/19. OR cx sent. prelim no growth wbc trending high ; trend 34.5 on pressors Continues with anasarca cultures review 01/06: body fluid cultures : few WBC seen , no organisms 01/05, Blood culture: No growth 01/05, Urine culture: No growth 01/04, Aerobic culture: No growth 12/29 : sputum culture notable for Enterobacter cloacae. overall prognosis is very poor with mets, plus worsening sepsis. possible plan for terminal wean in 48 hours crit time 35 minutes spent in co-ordination of care Thank you for the consult and for giving an opportunity to take care of this patient. Dietary Evaluation Review Comments: 1) Advance pt diet when medically feasible to a Cardiac diet 2) Continue current plan of care Expected Outcomes/Goals: 1) F/U in 3-5 days Plan discussed with: JASPREET Galvan MD Jan 26, 2024 16:19
[2024-01-27] VITALS (105 sets, daily range): BP systolic 82–150; BP diastolic 17–92; PULSE 94–112; RESP 20–45; TEMP 98.6–99.7; O2SAT 90–99
--- NOTE | 2024-01-27 05:04 | DVH ---
CHEST RADIOGRAPH Indication: Intubated Technique: Single frontal view of the chest was obtained Comparison: XY CHEST PORTABLE on DOS: 01/26/24, XY CHEST PORTABLE on DOS: 01/25/24, XY CHEST XRAY 1 VIE W on DOS: 01/24/24 IMPRESSION: The heart appears stable in size with multilead left cardiac defibrillator. Stable elevation of the r ight hemidiaphragm. The lungs appear relatively clear without focal airspace opacity, effusion, or p neumothorax. Support lines and tubes appear unchanged in satisfactory position. No significant inter bayron change.
[2024-01-27 08:59] LABS: Base Excess -10.5 mmol/L (-2.0-3.0)
[2024-01-27] MEDS: ENOXAPARIN SOD 40 MG/0.4 ML SYRINGE SC SCH (09:52)
[2024-01-27] MEDS: FUROSEMIDE 100 MG/10ML VIAL IV SCH (10:03)
[2024-01-27 10:26] LABS: Hematocrit 30.2 % (36.0-46.0); Hemoglobin 9.1 g/dL (12.2-16.2); Mean Corpuscular Volume 86.8 fL (80.0-100.0); Platelet Count (auto) 353 10^3/uL (140-450); Red Blood Cells 3.48 10^6/uL (4.0-5.20)
[2024-01-27 10:39] LABS: Potassium 4.8 mmol/L (3.5-5.1); Sodium 144 mmol/L (136-145)
[2024-01-27 10:40] LABS: White Blood Cell 51.9 10^3/uL (4.4-10.8)
[2024-01-27 10:41] LABS: Basophils % (manual) 0 (0.0-2.0); Blast Cells 0; Eosinophils % (manual) 0 (0-7); Metamyelocytes % 0; Myelocytes % 0; Promyelocytes % 0; Reactive Lymphocytes 0
[2024-01-27 10:42] LABS: Anion Gap 12 (5-15); Carbon Dioxide 20 mmol/L (20-31)
[2024-01-27 10:43] LABS: Calcium 8.7 mg/dL (8.7-10.4)
[2024-01-27 10:48] LABS: BUN/Creatinine Ratio 84.3 (10.0-20.0); Magnesium 2.3 mg/dL (1.6-2.6)
[2024-01-27 11:02] LABS: Alanine Aminotransferase 199 U/L (7-40); Albumin 2.3 g/dL (3.2-4.8); Alkaline Phosphatase 319 U/L (46-116); Aspartate Aminotransferase 427 U/L (13-40); Bilirubin, Total 5.8 mg/dL (0.2-1.0); Blood Urea Nitrogen 107 mg/dL (9-23); Chloride 112 mmol/L (98-107); Glucose 140 mg/dL (74-106); Phosphorus 6.3 mg/dL (2.4-5.1); Total Protein 5.5 g/dL (5.7-8.2)
[2024-01-27 11:38] LABS: Band Neutrophils % (manual) 8; Lymphocytes % (manual) 6 (10.0-50.0); Monocytes % (manual) 5 (0-12); Platelet Estimate Adequate
[2024-01-27 11:39] LABS: Anisocytosis Slight; Hypochromia Slight; Ovalocytes FEW; Target Cell FEW
--- NOTE | 2024-01-27 12:21 | DVHPNRES ---
Progress Note Date Seen: Jan 27, 2024 Resident Creating Document: NICHOLE CANCINO RESIDENT Medical Necessity Reason Pt with a Central, PICC or Fol: Yes The following are medically ne: PICC Line, Davies Catheter Reason for davies catheter: Strict I&O Subjective Review of Systems A 63-year-old female patient with PMHx of systolic heart failure status post Medtr[employer] ICD placement -last EF 35% in September2023, CAD status post 4 RYAN in January 2018 , dyslipidemia, recurrent UTIs and pyelonephritis for the past 4 months, hypertension and internal hemorrhoids presented to the ER with a chief complaint of suprapubic abdominal pain and constipation. Patient recently visited [facility] in August this year with her when she went to the [place] barefoot and had bite dong all over the body, following which she has been getting recurrent UTIs and pyelonephritis starting September, also reports dry cough since the visit. She reports that the abdominal pain started 12/10 and is associated with tenesmus, she only passes small pellet-like stools associated with mucus and a lot of flatus. Also reports history of internal hemorrhoids and that she is experiencing bright red bleed per rectum for the past few days. She denies lifetime history of colonoscopy/endoscopy. Reports nausea, chills on and off but no fever. Denies lifetime history of STI, is monogamous with the . Her did not get any symptoms after the trip. PCP Jodie Rico Past surgical history; Partial hysterectomy Family history: Unremarkable Social history: Lives with , denies smoking, drank heavily during the vacation - quit since, denies illicit drug Patient seen and examined at bedside. Abdomen and pelvis CT which evidence pelvic abscess. Exploratory laparotomy with evacuation of pelvic abscess done on 01/20/24, colostomy bag is in placed. Two JONATHAN drains were placed to lower portion of abdomen, liver biopsy was done at the time. Objective vital signs Vital Sign Date Time Temp Pulse Resp B/P (MAP) Pulse Ox O2 Delivery O2 Flow Rate FiO2 01/27/24 12:00 26 93 Mechanical Ventilator+ 30 30 01/27/24 12:00 97 01/27/24 10:38 98.6 120/42 (68) 209.5 Total Intake and Output 01/26/24 01/26/24 01/27/24 15:00 23:00 07:00 Intake Total 807.752 ml 782.377 ml 805.188 ml Output Total 795 ml 595 ml Balance 807.752 ml -12.623 ml 210.188 ml medications Current Medications Medications Dose Ordered Sig/Saige Route Start Time Stop Time Status Last Admin Dose Admin Pantoprazole Sodium 40 mg DAILY IV 12/26/23 10:00 01/27/24 09:51 40 MG Ipratropium [place] 0.5 mg Q6HR NEB 12/27/23 18:00 Cancel Amino Acids 0 ml @ 0 mls/hr PER PHARMACY IV 12/28/23 12:00 Diagnostic Test (Pha) 1 strip Q6HR 12/28/23 18:00 01/27/24 11:53 1 STRIP Insulin Human Regular FOLLOW SLIDING SCALE Q6HR SC 12/28/23 18:00 01/27/24 11:57 2 UNITS Dextrose 50 ml UD IV 12/28/23 13:00 Sodium Chloride 10 ml QSHIFT@22 IV 01/05/24 22:00 01/27/24 09:52 10 ML Acetaminophen 1,000 mg Q8HP PRN IV 01/13/24 18:00 01/26/24 09:45 1,000 MG Meropenem 50 ml @ 17 mls/hr Q8H IV 01/14/24 20:00 01/27/24 11:50 17 MLS/HR Ipratropium [place] 0.5 mg Q6HPRN PRN NEB 01/14/24 18:30 01/27/24 00:09 0.5 MG Midazolam HCl 50 ml @ 1 mls/hr Q24H IV 01/14/24 20:00 01/27/24 09:32 15 MLS/HR Norepinephrine Bitartrate 32 mg/ Dextrose 250 ml @ 0.938 mls/ hr Q24H IV 01/23/24 16:30 Hold Norepinephrine Bitartrate 32 mg/ Sodium Chloride 250 ml @ 0.938 mls/ hr Q24H IV 01/23/24 23:30 01/24/24 18:09 0.938 MLS/HR Fentanyl Citrate 250 ml @ 2.5 mls/hr Q24H IV 01/23/24 23:30 01/27/24 06:20 35 MLS/HR Fluconazole 100 ml @ 100 mls/hr DAILY IV 01/24/24 11:45 01/27/24 09:51 100 MLS/HR Potassium Acetate 40 meq/Magnesium Sulfate 4 meq/ Multivitamins 10 ml/Amino Acids/ Dextrose 931 ml @ 39 mls/hr [id number] IV 01/26/24 22:00 01/27/24 21:59 01/26/24 21:37 39 MLS/HR Vancomycin HCl 0 ml @ 0 mls/hr UD IV 01/26/24 16:45 Enoxaparin Sodium 40 mg DAILY SC 01/27/24 10:00 01/27/24 09:52 40 MG Enteral Nutritional Formula 1,000 ml 30ML/HR GT 01/26/24 16:45 Furosemide 60 mg BIDD IV 01/27/24 10:00 01/27/24 10:03 60 MG Examination Gen. Sedated, intubated on mechanical ventilator. Head: Normocephalic, atraumatic. Eyes: PERRLA. Ears: Normal external anatomy. Throat: Endotracheal tube and orogastric tube in place. Neck: Supple, trachea midline. Chest: Transmitted breath sounds bilaterally. Decreased air entry bilaterally. No wheezing. Bibasilar crackles. Cardiovascular: Positive S1, positive S2. Regular rate and rhythm. Abdomen: Positive bowel sounds in all 4 quadrants. Soft, nontender, nondistended. : Davies in place. Normal external genitalia. Skin: Warm, dry. Intact. Extremities: 2+ radial pulses bilaterally. No lower extremity edema. Neuro: Sedated. laboratory and microbiology Laboratory Tests 01/27/24 10:10 Test 01/27/24 10:10 Range/Units Serum Glucose 140 H 74-106 mg/dL Microbiology Date/Time Source Procedure Growth Status 01/20/24 14:32 Peritoneal Fluid Gram Stain - Final Complete 01/20/24 14:32 Peritoneal Fluid Anaerobic Culture - Final Complete 01/20/24 14:32 Peritoneal Fluid Aerobic Culture - Final Complete 01/14/24 19:03 Trachea Gram Stain - Final Complete 01/14/24 19:03 Respiratory Culture - Final Yeast, not Ayse albicans Complete 01/14/24 10:28 Voided Urine Urine Culture - Final Complete 01/14/24 10:25 Blood Blood Culture - Final NO GROWTH AFTER 5 DAYS OF INCUBATION. Complete 01/12/24 16:13 Sputum Gram Stain - Final Complete 01/12/24 16:13 Respiratory Culture - Final Enterobacter cloacae Complete 12/18/23 13:03 Stool Stool Culture - Final Complete 12/18/23 13:03 Stool Shiga Toxin I & II - Final Complete Problem List/Assessment/Plan Problem List/Assessment/Plan Neurology: Metabolic encephalopathy probably secondary to sepsis Currently patient is intubated Currently under empiric IV antibiotic (meropenem and Vanco) Completed multiple head CTs with no acute intracranial pathology Cardiovascular Acute on chronic systolic congestive heart failure (HFrEF, LVEF 35%)-status post ICD placement And is on Bumex drip Echocardiogram during this admission: Severely reduced LVEF, 35%, anterior anteroapical wall akinesia, moderately reduced RV systolic function, rest of study within normal limits. History of coronary artery disease with cardiac arrest (VFib/V-tach) - status post PCI with stent placements Currently aspirin on hold (INR of 2). Completed stress test which showed no ischemia, multiple territories of infarcts NSTEMI type 2 Secondary to septic shock. Stress test negative for ischemia Respiratory Acute respiratory failure due to Multiple pneumonia secondary to Enterobacter cloacae and Klebsiella Ruled out Ventilator associated Pneumonia currently is intubated on 01/14/2024 (VCV VT 350, RR 22, peep five, FiO2 30%) Completed new bronchoscopy 01/14/2024 since samples for culture and pathology. Aspiration pneumonia due to Gm +/- Bacteria. Secondary to Gastrografin study. Required endotracheal intubation on 01/14/2024 and bronchoscopy, Multiple pneumonia secondary to Enterobacter cloacae and Klebsiella Completed multiple courses of antibiotics, now on meropenem and Vanco Gastrointestinal Bowel obstruction secondary to sigmoid adenocarcinoma with hepatic metastasis - status post colectomy with terminal-terminal anastomosis Completed colectomy with terminal terminal anastomosis on 12/25/2023, with previous cardiological clearance. medical certification specialist on board. Pelvic abscess - status post drainage abdomen and pelvis CT with contrast which shows abscess and pelvic area. Exploratory laparotomy with evacuation of pelvic abscess done on 01/20/24, colostomy bag is placed. Two JONATHAN drains were placed to lower portion of abdomen, Hepatomegaly secondary to liver metastasis due to sigmoid adenocarcinoma Monitor CMP and coagulation Transaminitis Secondary to above Genitourinary/Nephrology History of multiple UTIs Last urine culture with no evidence of bacterial growth Metabolic Hypernatremia -Resolved Infectious Disease Septic shock probably secondary to aspiration pneumonia versus pelvic abscess - resolved Required maximum dose of vasopressors (four IV vasopressors). Currently with no IV vasopressors Completed multiple courses of antibiotic (febrile since tazobactam for two days, ceftriaxone for one day, vancomycin previously for 12 days, meropenem previously four 12 days) Multiple cultures completed, only positive 3 times sputum for Enterobacter cloacae (pelvic fluid, blood, and urine culture negative) Id specialist on board Persistent sepsis probably secondary to pelvic abscess Completed new abdomen and pelvis CT with contrast which evidence abscess and pelvic area. abscess drainage on 01/20/24 by the surgeon. Currently under empiric IV antibiotic (Vanco and meropenem) Hematology Persistent leukocytosis Probably secondary to pelvic abscess Coagulopathy secondary to sepsis INR on 01/19/2024 approximately 1.57 We will hold enoxaparin and aspirin Nutrition: TPN, no enteral feeding until bowel motility evaluated (has to be cleared by surgical pathologist) Prophylaxis for PUD and DVT: Currently on pantoprazole and Lovenox Lines Left arm PICC line placed on 01/07/2024 New Davies catheter 01/14/2024 ET tube 01/14/2024 Drips Versed 15 Fentanyl 300 NE 12 Exploratory laparotomy with evacuation of pelvic abscess done on 01/20/24, colostomy bag is placed. Two JONATHAN drains were placed to lower portion of abdomen, Had a family meeting with patient's , brother and [id number] today at bedside, Pt's made the Code status to DNR. overall prognosis is very poor with mets, plus worsening sepsis. possible plan for terminal wean. Critical Care time spent 47 minutes including Family meeting, patient care, chart review and updating family, excluding procedure. DNR Case discussed with Dr Ojeda Plan discussed with: Spouse, Other (RN) My Orders My Orders Orders - NICHOLE CANCINO RESIDENT Procedure Category Date Status Time Vancomycin Per PHA 01/26/24 In Process Pharmacy 16:45 Enoxaparin Sodium PHA 01/27/24 In Process (Lovenox) 10:00 Nutritional PHA 01/26/24 In Process Supplements (Nepro 16:45 Chest Xray 1 View XY 01/27/24 Resulted 04:00 Abg W/ Co-Ox RT 01/27/24 Logged 08:50 Dietary Evaluation Review Comments: 1) Advance pt diet when medically feasible to a Cardiac diet 2) Continue current plan of care Expected Outcomes/Goals: 1) F/U in 3-5 days Date of Service: Jan 27, 2024 Billing Provider: KATERINA OJEDA MD Common Visit Codes: 42287-[id number] CARE 30-74 MIN NICHOLE CANCINO RESIDENT Jan 27, 2024 12:21 KATERINA OJEDA MD Jan 28, 2024 10:30
[2024-01-27] MEDS: VANCOMYCIN 1GM/250ML KIT 250 ML IV ONE (13:02)
--- NOTE | 2024-01-27 21:22 | DVHPN2 ---
Progress Note - Dictate Date Seen: Jan 27, 2024 Medical Necessity Reason Pt with a Central, PICC or Fol: Yes The following are medically ne: PICC Line, Davies Catheter Reason for davies catheter: Strict I&O Subjective She is sedated, intubated on mechanical ventilator, abdomen non distended, stoma viable WBC is elevated at 34k rash seems to have improved POTASSIUM 6.2, BUN 89, AND WBC 46.4. REDRAW LABS. abdomen and pelvis CT which evidence pelvic abscess. Exploratory laparotomy with evacuation of pelvic abscess done on 01/20/24, colostomy bag is in placed. Two JONATHAN drains were placed to lower portion of abdomen, liver biopsy was done at the time. Antibiotic status: Vancomycin HCl 200 ml @ 200 mls/hr - [Started 12/31 - 01/15] Linezolid [ started 01/17 - Ongoing] Meropenem 50 ml @ 17 mls/hr - [Started - 01/02 - stopped] ; restarted 01/13 - Ongoing 01/24 Chest radiograph : There are low lung volumes. Patchy airspace opacity in the right lung base. No sizable effusion or pneumothorax. Endotracheal and enteric tube appear unchanged in satisfactory in position. Multi lead left cardiac device. No significant interval change. vital signs Vital Sign Date Time Temp Pulse Resp B/P (MAP) Pulse Ox O2 Delivery O2 Flow Rate FiO2 01/27/24 20:00 30 01/27/24 20:00 26 93 Mechanical Ventilator+ 01/27/24 20:00 99.1 99 103/28 (53) 210.4 Total Intake and Output 01/26/24 01/26/24 01/27/24 15:00 23:00 07:00 Intake Total 807.752 ml 782.377 ml 805.188 ml Output Total 795 ml 595 ml Balance 807.752 ml -12.623 ml 210.188 ml medications Current Medications Medications Dose Ordered Sig/Saige Route Start Time Stop Time Status Last Admin Dose Admin Pantoprazole Sodium 40 mg DAILY IV 12/26/23 10:00 01/27/24 09:51 40 MG Ipratropium [place] 0.5 mg Q6HR NEB 12/27/23 18:00 Cancel Amino Acids 0 ml @ 0 mls/hr PER PHARMACY IV 12/28/23 12:00 Diagnostic Test (Pha) 1 strip Q6HR 12/28/23 18:00 01/27/24 17:09 1 STRIP Insulin Human Regular FOLLOW SLIDING SCALE Q6HR SC 12/28/23 18:00 01/27/24 17:24 2 UNITS Dextrose 50 ml UD IV 12/28/23 13:00 Sodium Chloride 10 ml QSHIFT@10,22 IV 01/05/24 22:00 01/27/24 09:52 10 ML Acetaminophen 1,000 mg Q8HP PRN IV 01/13/24 18:00 01/26/24 09:45 1,000 MG Meropenem 50 ml @ 17 mls/hr Q8H IV 01/14/24 20:00 01/27/24 19:55 17 MLS/HR Ipratropium [place] 0.5 mg Q6HPRN PRN NEB 01/14/24 18:30 01/27/24 00:09 0.5 MG Midazolam HCl 50 ml @ 1 mls/hr Q24H IV 01/14/24 20:00 01/27/24 18:36 15 MLS/HR Norepinephrine Bitartrate 32 mg/ Dextrose 250 ml @ 0.938 mls/ hr Q24H IV 01/23/24 16:30 Hold Norepinephrine Bitartrate 32 mg/ Sodium Chloride 250 ml @ 0.938 mls/ hr Q24H IV 01/23/24 23:30 01/24/24 18:09 0.938 MLS/HR Fentanyl Citrate 250 ml @ 2.5 mls/hr Q24H IV 01/23/24 23:30 01/27/24 20:28 35 MLS/HR Fluconazole 100 ml @ 100 mls/hr DAILY IV 01/24/24 11:45 01/27/24 09:51 100 MLS/HR Potassium Acetate 40 meq/Magnesium Sulfate 4 meq/ Multivitamins 10 ml/Amino Acids/ Dextrose 931 ml @ 39 mls/hr [id number] IV 01/26/24 22:00 01/27/24 21:59 01/26/24 21:37 39 MLS/HR Vancomycin HCl 0 ml @ 0 mls/hr UD IV 01/26/24 16:45 Enoxaparin Sodium 40 mg DAILY SC 01/27/24 10:00 01/27/24 09:52 40 MG Enteral Nutritional Formula 1,000 ml 30ML/HR GT 01/26/24 16:45 Furosemide 60 mg BIDD IV 01/27/24 10:00 01/27/24 17:09 60 MG Magnesium Sulfate 2 meq/ Multivitamins 10 ml/Amino Acids/ Dextrose 760.5 ml @ 32 mls/hr [id number] IV 01/27/24 22:00 01/28/24 21:59 objective General.: Patient lying in bed in medical ICU. Sedated, intubated on mechanical ventilator. Head: Normocephalic, atraumatic. Eyes: PERRLA. Ears: Normal external anatomy. Throat: Endotracheal tube and orogastric tube in place. Neck: Supple, trachea midline. Chest: Transmitted breath sounds bilaterally. Decreased air entry bilaterally. No wheezing. Bibasilar crackles. Cardiovascular: Positive S1, positive S2. Regular rate and rhythm. Abdomen: s/p ex lap, JONATHAN drain +, stoma + : Davies in place. Normal external genitalia. Skin: rash + ( improving) Extremities: 2+ radial pulses bilaterally. +4 pitting edema. Neuro: Sedated. laboratory and microbiology Laboratory Tests 01/27/24 10:10 Test 01/27/24 10:10 Range/Units Serum Glucose 140 H 74-106 mg/dL Assessment/Plan Patient is a 64-year-old female presents to the hospital with: skin rash possible drug related Pelvic abscess; colon leak vs ascites septic shock vs distributive shock leucocytosis Ventilator associated Pneumonia : [place] large bowel obstruction s/p colectomy s/p end to end anastomosis 12/24 possible colon cancer with mets ascites: malignant vs post surgical vs infection Liver mets acute hypoxic respiratory failure on mechanical ventilation CHF anasarca Recommendations: skin rash is improving Discussed with RN, possible plan for Terminal wean in 24-48 hours due to poor prognosis Skin rash likely due to drug related, among Micafungin, Linezolid and MEropenem the likely culprit is Micafungin > meropenem > Zyvox cont Fluconazole, cont meropenem for now, . OR cx 01/19, Aerobic and Anaerobic culture: prelim negative ; follow repeat Ct abdomen and pelvis shows large collection, concern fo colon leak/ abscess/ ascites s/p Ex lap, 01/19. OR cx sent. prelim no growth wbc trending high ; trend 51.9 Continues with anasarca abdomen and pelvis CT which evidence pelvic abscess. Exploratory laparotomy with evacuation of pelvic abscess done on 01/20/24, colostomy bag is in placed. Two JONATHAN drains were placed to lower portion of abdomen, liver biopsy was done at the time. X-ray chest reviewed 01/26 cultures review 01/06: body fluid cultures : few WBC seen , no organisms 01/05, Blood culture: No growth 01/05, Urine culture: No growth 01/04, Aerobic culture: No growth 12/29 : sputum culture notable for Enterobacter cloacae. overall prognosis is very poor with mets, plus worsening sepsis. possible plan for terminal wean in 48 hours crit time 35 minutes spent in co-ordination of care Thank you for the consult and for giving an opportunity to take care of this patient. Dietary Evaluation Review Comments: 1) Advance pt diet when medically feasible to a Cardiac diet 2) Continue current plan of care Expected Outcomes/Goals: 1) F/U in 3-5 days JASPREET ALVAREZ MD Jan 27, 2024 21:22
[2024-01-27] MEDS: TPN PER PHARMACY IV NR (21:35)
--- NOTE | 2024-01-27 21:40 | DVHPN2 ---
Progress Note Date Seen: Jan 27, 2024 Medical Necessity Reason Pt with a Central, PICC or Fol: Yes The following are medically ne: PICC Line, Davies Catheter Reason for davies catheter: Strict I&O Subjective Patient reports: Other (Per RN bedside family is contemplating terminal weaning and comfort care likely today or tomorrow) Review of Systems: Deferred Objective vital signs Vital Sign Date Time Temp Pulse Resp B/P (MAP) Pulse Ox O2 Delivery O2 Flow Rate FiO2 01/27/24 20:00 30 01/27/24 20:00 26 93 Mechanical Ventilator+ 01/27/24 20:00 99.1 99 103/28 (53) 210.4 Total Intake and Output 01/26/24 01/26/24 01/27/24 15:00 23:00 07:00 Intake Total 807.752 ml 782.377 ml 805.188 ml Output Total 795 ml 595 ml Balance 807.752 ml -12.623 ml 210.188 ml medications Current Medications Medications Dose Ordered Sig/Saige Route Start Time Stop Time Status Last Admin Dose Admin Pantoprazole Sodium 40 mg DAILY IV 12/26/23 10:00 01/27/24 09:51 40 MG Ipratropium [place] 0.5 mg Q6HR NEB 12/27/23 18:00 Cancel Amino Acids 0 ml @ 0 mls/hr PER PHARMACY IV 12/28/23 12:00 Diagnostic Test (Pha) 1 strip Q6HR 12/28/23 18:00 01/27/24 17:09 1 STRIP Insulin Human Regular FOLLOW SLIDING SCALE Q6HR SC 12/28/23 18:00 01/27/24 17:24 2 UNITS Dextrose 50 ml UD IV 12/28/23 13:00 Sodium Chloride 10 ml QSHIFT@10,22 IV 01/05/24 22:00 01/27/24 21:37 10 ML Acetaminophen 1,000 mg Q8HP PRN IV 01/13/24 18:00 01/26/24 09:45 1,000 MG Meropenem 50 ml @ 17 mls/hr Q8H IV 01/14/24 20:00 01/27/24 19:55 17 MLS/HR Ipratropium [place] 0.5 mg Q6HPRN PRN NEB 01/14/24 18:30 01/27/24 00:09 0.5 MG Midazolam HCl 50 ml @ 1 mls/hr Q24H IV 01/14/24 20:00 01/27/24 18:36 15 MLS/HR Norepinephrine Bitartrate 32 mg/ Dextrose 250 ml @ 0.938 mls/ hr Q24H IV 01/23/24 16:30 Hold Norepinephrine Bitartrate 32 mg/ Sodium Chloride 250 ml @ 0.938 mls/ hr Q24H IV 01/23/24 23:30 01/24/24 18:09 0.938 MLS/HR Fentanyl Citrate 250 ml @ 2.5 mls/hr Q24H IV 01/23/24 23:30 01/27/24 20:28 35 MLS/HR Fluconazole 100 ml @ 100 mls/hr DAILY IV 01/24/24 11:45 01/27/24 09:51 100 MLS/HR Potassium Acetate 40 meq/Magnesium Sulfate 4 meq/ Multivitamins 10 ml/Amino Acids/ Dextrose 931 ml @ 39 mls/hr [id number] IV 01/26/24 22:00 01/27/24 21:59 01/26/24 21:37 39 MLS/HR Vancomycin HCl 0 ml @ 0 mls/hr UD IV 01/26/24 16:45 Enoxaparin Sodium 40 mg DAILY SC 01/27/24 10:00 01/27/24 09:52 40 MG Enteral Nutritional Formula 1,000 ml 30ML/HR GT 01/26/24 16:45 Furosemide 60 mg BIDD IV 01/27/24 10:00 01/27/24 17:09 60 MG Magnesium Sulfate 2 meq/ Multivitamins 10 ml/Amino Acids/ Dextrose 760.5 ml @ 32 mls/hr [id number] IV 01/27/24 22:00 01/28/24 21:59 01/27/24 21:35 32 MLS/HR Examination: GENERAL:Abnormal, LUNGS:Abnormal, MSK:Abnormal (Swelling generalized edema), SKIN:Abnormal, NEURO:Abnormal laboratory and microbiology Laboratory Tests 01/27/24 10:10 Test 01/27/24 10:10 Range/Units Serum Glucose 140 H 74-106 mg/dL Microbiology Date/Time Source Procedure Growth Status 01/20/24 14:32 Peritoneal Fluid Gram Stain - Final Complete 01/20/24 14:32 Peritoneal Fluid Anaerobic Culture - Final Complete 01/20/24 14:32 Peritoneal Fluid Aerobic Culture - Final Complete 01/14/24 19:03 Trachea Gram Stain - Final Complete 01/14/24 19:03 Respiratory Culture - Final Yeast, not Ayse albicans Complete 01/14/24 10:28 Voided Urine Urine Culture - Final Complete 01/14/24 10:25 Blood Blood Culture - Final NO GROWTH AFTER 5 DAYS OF INCUBATION. 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 Per RN bedside family is contemplating terminal wean comfort care Plan discussed with: Other My Orders My Orders Orders - ROXY OTOOLE MD Procedure Category Date Status Time Furosemide Injection PHA 01/27/24 In Process (Lasix Injection) 10:00 Dietary Evaluation Review Comments: 1) Advance pt diet when medically feasible to a Cardiac diet 2) Continue current plan of care Expected Outcomes/Goals: 1) F/U in 3-5 days ROXY OTOOLE MD Jan 27, 2024 21:40
[2024-01-28] VITALS (71 sets, daily range): BP systolic 69–124; BP diastolic 21–56; PULSE 30–109; RESP 5–35; TEMP 98.4–99.5; O2SAT 32–100
[2024-01-28 03:53] LABS: Hemoglobin 8.7 g/dL (12.2-16.2); Mean Corpuscular Hemoglobin 25.5 pg (28.0-32.0); Mean Corpuscular Hgb Conc. 29.8 g/dL (32.0-36.0); Mean Corpuscular Volume 85.6 fL (80.0-100.0); Platelet Count (auto) 321 10^3/uL (140-450); Red Blood Cells 3.39 10^6/uL (4.0-5.20)
[2024-01-28 04:07] LABS: Anion Gap 15 (5-15); BUN/Creatinine Ratio 72.8 (10.0-20.0); Calcium 8.7 mg/dL (8.7-10.4); Magnesium 2.3 mg/dL (1.6-2.6); Sodium 143 mmol/L (136-145)
[2024-01-28 04:24] LABS: Red Cell Distribution Width 26.6 % (11.8-14.3); White Blood Cell 52.4 10^3/uL (4.4-10.8)
[2024-01-28 04:25] LABS: Basophils % (manual) 0 (0.0-2.0); Blast Cells 0; Metamyelocytes % 0; Promyelocytes % 0; Reactive Lymphocytes 0
[2024-01-28 04:26] LABS: Alanine Aminotransferase 228 U/L (7-40); Albumin 2.3 g/dL (3.2-4.8); Alkaline Phosphatase 308 U/L (46-116); Aspartate Aminotransferase 493 U/L (13-40); Bilirubin, Total 5.5 mg/dL (0.2-1.0); Blood Urea Nitrogen 107 mg/dL (9-23); Carbon Dioxide 18 mmol/L (20-31); Chloride 110 mmol/L (98-107); Glucose 137 mg/dL (74-106); Phosphorus 7.1 mg/dL (2.4-5.1); Potassium 5.4 mmol/L (3.5-5.1); Total Protein 5.3 g/dL (5.7-8.2)
[2024-01-28 04:27] LABS: Triglycerides 217 mg/dL (< 150)
--- NOTE | 2024-01-28 04:37 | DVH ---
CHEST RADIOGRAPH Indication: intubated Technique: Single frontal view of the chest was obtained Comparison: XY CHEST XRAY 1 VIEW on DOS: 01/27/24, XY CHEST PORTABLE on DOS: 01/26/24, XY CHEST PORTAB LE on DOS: 01/25/24 IMPRESSION: There are low lung volumes. The heart appears normal in size. Support lines and tubes appear unchan ged in satisfactory position. No sizable effusion, focal airspace opacity, or pneumothorax. No signif icant interval change.
[2024-01-28 05:06] LABS: Band Neutrophils % (manual) 8; Eosinophils % (manual) 1 (0-7); Lymphocytes % (manual) 3 (10.0-50.0); Monocytes % (manual) 3 (0-12); Myelocytes % 1
[2024-01-28 05:07] LABS: Anisocytosis Moderate; Ovalocytes FEW; Platelet Estimate Adequate; Target Cell FEW
[2024-01-28 07:21] LABS: Base Excess -9.3 mmol/L (-2.0-3.0)
--- NOTE | 2024-01-28 09:04 | DVHPNRES ---
Progress Note Date Seen: Jan 28, 2024 Resident Creating Document: NICHOLE CANCINO RESIDENT Medical Necessity Reason Pt with a Central, PICC or Fol: Yes The following are medically ne: PICC Line, Davies Catheter Reason for davies catheter: Strict I&O Subjective Review of Systems A 63-year-old female patient with PMHx of systolic heart failure status post Med[employer] ICD placement -last EF 35% in September2023, CAD status post 4 RYAN in January 2018 , dyslipidemia, recurrent UTIs and pyelonephritis for the past 4 months, hypertension and internal hemorrhoids presented to the ER with a chief complaint of suprapubic abdominal pain and constipation. Patient recently visited [facility] in August this year with her when she went to the [place] barefoot and had bite dong all over the body, following which she has been getting recurrent UTIs and pyelonephritis starting September, also reports dry cough since the visit. She reports that the abdominal pain started 12/10 and is associated with tenesmus, she only passes small pellet-like stools associated with mucus and a lot of flatus. Also reports history of internal hemorrhoids and that she is experiencing bright red bleed per rectum for the past few days. She denies lifetime history of colonoscopy/endoscopy. Reports nausea, chills on and off but no fever. Denies lifetime history of STI, is monogamous with the . Her did not get any symptoms after the trip. PCP Jodie Rico Past surgical history; Partial hysterectomy Family history: Unremarkable Social history: Lives with , denies smoking, drank heavily during the vacation - quit since, denies illicit drug Patient seen and examined at bedside. Abdomen and pelvis CT which evidence pelvic abscess. Exploratory laparotomy with evacuation of pelvic abscess done on 01/20/24, colostomy bag is in placed. Two JONATHAN drains were placed to lower portion of abdomen, liver biopsy was done at the time. Objective vital signs Vital Sign Date Time Temp Pulse Resp B/P (MAP) Pulse Ox O2 Delivery O2 Flow Rate FiO2 01/28/24 08:23 100 35 93/30 (51) 91 30 01/28/24 06:00 99.3 210.7 01/28/24 06:00 Mechanical Ventilator+ Total Intake and Output 01/27/24 01/27/24 01/28/24 15:00 23:00 07:00 Intake Total 907.000 ml 794.000 ml 664.375 ml Output Total 790 ml 930 ml Balance 907.000 ml 4.000 ml -265.625 ml medications Current Medications Medications Dose Ordered Sig/Saige Route Start Time Stop Time Status Last Admin Dose Admin Pantoprazole Sodium 40 mg DAILY IV 12/26/23 10:00 01/27/24 09:51 40 MG Ipratropium [place] 0.5 mg Q6HR NEB 12/27/23 18:00 Cancel Amino Acids 0 ml @ 0 mls/hr PER PHARMACY IV 12/28/23 12:00 Diagnostic Test (Pha) 1 strip Q6HR 12/28/23 18:00 01/28/24 05:49 1 STRIP Insulin Human Regular FOLLOW SLIDING SCALE Q6HR SC 12/28/23 18:00 01/28/24 05:52 2 UNITS Dextrose 50 ml UD IV 12/28/23 13:00 Sodium Chloride 10 ml QSHIFT@10,22 IV 01/05/24 22:00 01/27/24 21:37 10 ML Acetaminophen 1,000 mg Q8HP PRN IV 01/13/24 18:00 01/26/24 09:45 1,000 MG Meropenem 50 ml @ 17 mls/hr Q8H IV 01/14/24 20:00 01/28/24 03:30 17 MLS/HR Ipratropium [place] 0.5 mg Q6HPRN PRN NEB 01/14/24 18:30 01/27/24 00:09 0.5 MG Midazolam HCl 50 ml @ 1 mls/hr Q24H IV 01/14/24 20:00 01/28/24 08:06 15 MLS/HR Norepinephrine Bitartrate 32 mg/ Dextrose 250 ml @ 0.938 mls/ hr Q24H IV 01/23/24 16:30 Hold Norepinephrine Bitartrate 32 mg/ Sodium Chloride 250 ml @ 0.938 mls/ hr Q24H IV 01/23/24 23:30 01/24/24 18:09 0.938 MLS/HR Fentanyl Citrate 250 ml @ 2.5 mls/hr Q24H IV 01/23/24 23:30 01/28/24 03:48 35 MLS/HR Fluconazole 100 ml @ 100 mls/hr DAILY IV 01/24/24 11:45 01/27/24 09:51 100 MLS/HR Vancomycin HCl 0 ml @ 0 mls/hr UD IV 01/26/24 16:45 Enoxaparin Sodium 40 mg DAILY SC 01/27/24 10:00 01/27/24 09:52 40 MG Enteral Nutritional Formula 1,000 ml 30ML/HR GT 01/26/24 16:45 Furosemide 60 mg BIDD IV 01/27/24 10:00 01/28/24 05:49 60 MG Magnesium Sulfate 2 meq/ Multivitamins 10 ml/Amino Acids/ Dextrose 760.5 ml @ 32 mls/hr [id number] IV 01/27/24 22:00 01/28/24 21:59 01/27/24 21:35 32 MLS/HR Examination Gen. Sedated, intubated on mechanical ventilator. Head: Normocephalic, atraumatic. Eyes: PERRLA. Ears: Normal external anatomy. Throat: Endotracheal tube and orogastric tube in place. Neck: Supple, trachea midline. Chest: Transmitted breath sounds bilaterally. Decreased air entry bilaterally. No wheezing. Bibasilar crackles. Cardiovascular: Positive S1, positive S2. Regular rate and rhythm. Abdomen: Positive bowel sounds in all 4 quadrants. Soft, nontender, nondistended. : Davies in place. Normal external genitalia. Skin: Warm, dry. Intact. Extremities: 2+ radial pulses bilaterally. No lower extremity edema. Neuro: Sedated. laboratory and microbiology Laboratory Tests 01/28/24 03:29 Test 01/28/24 03:29 Range/Units Serum Glucose 137 H 74-106 mg/dL Microbiology Date/Time Source Procedure Growth Status 01/20/24 14:32 Peritoneal Fluid Gram Stain - Final Complete 01/20/24 14:32 Peritoneal Fluid Anaerobic Culture - Final Complete 01/20/24 14:32 Peritoneal Fluid Aerobic Culture - Final Complete 01/14/24 19:03 Trachea Gram Stain - Final Complete 01/14/24 19:03 Respiratory Culture - Final Yeast, not Ayse albicans Complete 01/14/24 10:28 Voided Urine Urine Culture - Final Complete 01/14/24 10:25 Blood Blood Culture - Final NO GROWTH AFTER 5 DAYS OF INCUBATION. Complete 01/12/24 16:13 Sputum Gram Stain - Final Complete 01/12/24 16:13 Respiratory Culture - Final Enterobacter cloacae Complete 12/18/23 13:03 Stool Stool Culture - Final Complete 12/18/23 13:03 Stool Shiga Toxin I & II - Final Complete Problem List/Assessment/Plan Problem List/Assessment/Plan Neurology: Metabolic encephalopathy probably secondary to sepsis Currently patient is intubated Currently under empiric IV antibiotic (meropenem and Vanco) Completed multiple head CTs with no acute intracranial pathology Cardiovascular Acute on chronic systolic congestive heart failure (HFrEF, LVEF 35%)-status post ICD placement And is on Bumex drip Echocardiogram during this admission: Severely reduced LVEF, 35%, anterior anteroapical wall akinesia, moderately reduced RV systolic function, rest of study within normal limits. History of coronary artery disease with cardiac arrest (VFib/V-tach) - status post PCI with stent placements Currently aspirin on hold (INR of 2). Completed stress test which showed no ischemia, multiple territories of infarcts NSTEMI type 2 Secondary to septic shock. Stress test negative for ischemia Respiratory Acute respiratory failure due to Multiple pneumonia secondary to Enterobacter cloacae and Klebsiella Ruled out Ventilator associated Pneumonia currently is intubated on 01/14/2024 (VCV VT 350, RR 22, peep five, FiO2 30%) Completed new bronchoscopy 01/14/2024 since samples for culture and pathology. Aspiration pneumonia due to Gm +/- Bacteria. Secondary to Gastrografin study. Required endotracheal intubation on 01/14/2024 and bronchoscopy, Multiple pneumonia secondary to Enterobacter cloacae and Klebsiella Completed multiple courses of antibiotics, now on meropenem and Vanco Gastrointestinal Bowel obstruction secondary to sigmoid adenocarcinoma with hepatic metastasis - status post colectomy with terminal-terminal anastomosis Completed colectomy with terminal terminal anastomosis on 12/25/2023, with previous cardiological clearance. medicaid eligibility specialist on board. Pelvic abscess - status post drainage abdomen and pelvis CT with contrast which shows abscess and pelvic area. Exploratory laparotomy with evacuation of pelvic abscess done on 01/20/24, colostomy bag is placed. Two JONATHAN drains were placed to lower portion of abdomen, Hepatomegaly secondary to liver metastasis due to sigmoid adenocarcinoma Monitor CMP and coagulation Transaminitis Secondary to above Genitourinary/Nephrology History of multiple UTIs Last urine culture with no evidence of bacterial growth Metabolic Hypernatremia -Resolved Infectious Disease Septic shock probably secondary to aspiration pneumonia versus pelvic abscess. Required maximum dose of vasopressors (four IV vasopressors). Currently with no IV vasopressors Completed multiple courses of antibiotic (febrile since tazobactam for two days, ceftriaxone for one day, vancomycin previously for 12 days, meropenem previously four 12 days) Multiple cultures completed, only positive 3 times sputum for Enterobacter cloacae (pelvic fluid, blood, and urine culture negative) Id specialist on board Persistent sepsis probably secondary to pelvic abscess Completed new abdomen and pelvis CT with contrast which evidence abscess and pelvic area. abscess drainage on 01/20/24 by the surgeon. Currently under empiric IV antibiotic (Vanco and meropenem) Hematology Persistent leukocytosis Probably secondary to pelvic abscess Coagulopathy secondary to sepsis INR on 01/19/2024 approximately 1.57 We will hold enoxaparin and aspirin Nutrition: TPN, no enteral feeding until bowel motility evaluated (has to be cleared by surgical scrub tech) Prophylaxis for PUD and DVT: Currently on pantoprazole and Lovenox Lines Left arm PICC line placed on 01/07/2024 New Davies catheter 01/14/2024 ET tube 01/14/2024 Drips Versed 0 Fentanyl 0 NE 0 Exploratory laparotomy with evacuation of pelvic abscess done on 01/20/24, colostomy bag is placed. Two JONATHAN drains were placed to lower portion of abdomen, Had a family meeting with patient's , brother and [id number] today at bedside, overall prognosis is very poor with mets, plus worsening sepsis. Gradually wean off sedation as tolerated. Family Changed the code status to DNR and comfort measure only. Critical Care time spent 84 minutes including Family meeting, Terminal weaning, patient care, chart review and, excluding procedure. DNR and comfort measure only. Case discussed with Dr Dorsey Plan discussed with: Spouse, Other (RN) My Orders My Orders Orders - NICHOLE CANCINO Procedure Category Date Status Time Abg W/ Co-Ox RT 01/27/24 Logged 08:50 Vancomycin Per DELORES 01/27/24 In Process Pharmacy Protoc 12:29 Chest Xray 1 View XY 01/28/24 Resulted 04:00 Abg W/ Co-Ox RT 01/28/24 Logged 04:00 Dietary Evaluation Review Comments: 1) Advance pt diet when medically feasible to a Cardiac diet 2) Continue current plan of care Expected Outcomes/Goals: 1) F/U in 3-5 days NICHOLE CANCINO RESIDENT Jan 28, 2024 09:04
--- NOTE | 2024-01-28 09:42 | DVHPN2 ---
Progress Note Date Seen: Jan 28, 2024 Medical Necessity Reason Pt with a Central, PICC or Fol: Yes The following are medically ne: PICC Line, Davies Catheter Reason for davies catheter: Strict I&O Objective vital signs Vital Sign Date Time Temp Pulse Resp B/P (MAP) Pulse Ox O2 Delivery O2 Flow Rate FiO2 01/28/24 08:23 100 35 93/30 (51) 91 30 01/28/24 06:00 99.3 210.7 01/28/24 06:00 Mechanical Ventilator+ Total Intake and Output 01/27/24 01/27/24 01/28/24 15:00 23:00 07:00 Intake Total 907.000 ml 794.000 ml 664.375 ml Output Total 790 ml 930 ml Balance 907.000 ml 4.000 ml -265.625 ml medications Current Medications Medications Dose Ordered Sig/Saige Route Start Time Stop Time Status Last Admin Dose Admin Pantoprazole Sodium 40 mg DAILY IV 12/26/23 10:00 01/27/24 09:51 40 MG Ipratropium [place] 0.5 mg Q6HR NEB 12/27/23 18:00 Cancel Amino Acids 0 ml @ 0 mls/hr PER PHARMACY IV 12/28/23 12:00 Diagnostic Test (Pha) 1 strip Q6HR 12/28/23 18:00 01/28/24 05:49 1 STRIP Insulin Human Regular FOLLOW SLIDING SCALE Q6HR SC 12/28/23 18:00 01/28/24 05:52 2 UNITS Dextrose 50 ml UD IV 12/28/23 13:00 Sodium Chloride 10 ml QSHIFT@10,22 IV 01/05/24 22:00 01/27/24 21:37 10 ML Acetaminophen 1,000 mg Q8HP PRN IV 01/13/24 18:00 01/26/24 09:45 1,000 MG Meropenem 50 ml @ 17 mls/hr Q8H IV 01/14/24 20:00 01/28/24 03:30 17 MLS/HR Ipratropium [place] 0.5 mg Q6HPRN PRN NEB 01/14/24 18:30 01/27/24 00:09 0.5 MG Midazolam HCl 50 ml @ 1 mls/hr Q24H IV 01/14/24 20:00 01/28/24 08:06 15 MLS/HR Norepinephrine Bitartrate 32 mg/ Dextrose 250 ml @ 0.938 mls/ hr Q24H IV 01/23/24 16:30 Hold Norepinephrine Bitartrate 32 mg/ Sodium Chloride 250 ml @ 0.938 mls/ hr Q24H IV 01/23/24 23:30 01/24/24 18:09 0.938 MLS/HR Fentanyl Citrate 250 ml @ 2.5 mls/hr Q24H IV 01/23/24 23:30 01/28/24 03:48 35 MLS/HR Fluconazole 100 ml @ 100 mls/hr DAILY IV 01/24/24 11:45 01/27/24 09:51 100 MLS/HR Vancomycin HCl 0 ml @ 0 mls/hr UD IV 01/26/24 16:45 Enoxaparin Sodium 40 mg DAILY SC 01/27/24 10:00 01/27/24 09:52 40 MG Enteral Nutritional Formula 1,000 ml 30ML/HR GT 01/26/24 16:45 Furosemide 60 mg BIDD IV 01/27/24 10:00 01/28/24 05:49 60 MG Magnesium Sulfate 2 meq/ Multivitamins 10 ml/Amino Acids/ Dextrose 760.5 ml @ 32 mls/hr [id number] IV 01/27/24 22:00 01/28/24 21:59 01/27/24 21:35 32 MLS/HR laboratory and microbiology Laboratory Tests 01/28/24 03:29 Test 01/28/24 03:29 Range/Units Serum Glucose 137 H 74-106 mg/dL Problem List/Assessment/Plan Problem List/Assessment/Plan 01/06/[address] Aditi BUCKLEY, ABDOMEN APPEARS TO BE TENDER IN THE LEFT LOWER QUADRANT, WOUND IS CLEAN AND WELL APPROXIMATED, DRAINAGE FROM LOWER PORTION OF MIDLINE WOUND.AWAITING ir intervention 01/07/24 essentially unchanged, continues hypotensive with leukocytosis, abdomen "full", no BM or flatus reported, spoke to interventional radiologist, he will proceed with drainage of pelvic fluid collection via transgluteal approach 01/08/24 slightly improved, discussed pelvic fluid drainage with radiologist,abdomen soft, non distended, continue current treatments 01/09/24 slightly improved, abdomen less tense, wound clean ,drainage clear, good urine output, less pressors requirement 01/10/24 wbc slightly better, wound ok, abdomen soft and non distended, no BM, will add reglan, once she passes flatus NG tube can be DC'd 01/11/24 'S QUESTIONS ANSWERED, SHE CONTINUES UNCHANGED, WOUND CLEAN ,ABDOMEN NON DISTENDED 01/12/24 abdomen non distended, appears non tender()pt awakens), wound clean and well approximated, undergoing CPAP trial 01/14/24 abdomen benign, sepsis persists, will get gastrografin small bowel series in hope of starting po intake 01/15/24 patient aspirated yesterday and was re intubated, there is what appears a large fluid collection/abscess in the pelvis which could be due to an anastomotic colon leak, I thoroughly explained to (patient sedated) that if radiologist not available to do a ct guided aspiration, she would need an operation to drain the pelvic abscess and could end up with a colostomy. I showed the patient's CT scan images to the and explained that the liver is essentially replaced with what appears to be malignant deposits. I told him to "think hard about what would his want" if she were able to make a decision for her self in this situation. 01/17/24 apparently no radiologist is on premisses till Friday, not at bedside this morning, patient essentially clinically unchanged, will wait to hear from patient's about family's wishes 01/19/24 radiologist not able to do percutaneous drainage patient continues to be septic, will proceed with operation Friday . operation, colostomy etc, previously explained to patient's who left a message with patient's nurse that he wished tyo proceed with the operation even though I explained to him that the patient will ultimately probably of her cancer 01/21/24 sedated, on mechanical ventilator, essentially unchanged from pre op condition, abdomen non distended, wound dressing clean, scotty drainage non sanguineous, stoma viable without function. 01/22/24 anasarca, wound clean and well approximated, urine output adequate, abdomen non distended. BP improved 01/25/24 leukocytosis, wound clean and well approximated, stoma viable with some flatus, drainage serous, continues with anasarca 01/26/24 remains sedated on ventilator, anasarca continues, wound clean , abdomen non distended, stoma viable 01/28/24 leukocytosis worsening, back on Levophed blood support, abdomen soft, stoma viable, wound clean, drainage serous, will get CT scan to eval for pelvic abscess Plan discussed with: Other Dietary Evaluation Review Comments: 1) Advance pt diet when medically feasible to a Cardiac diet 2) Continue current plan of care Expected Outcomes/Goals: 1) F/U in 3-5 days ASPEN EUBANKS MD Jan 28, 2024 09:42
[2024-01-28] MEDS: LORazepam 2MG/ML-1ML VIAL IV PRN (14:35)
[2024-01-28] MEDS: HYDROmorphone HCL 2 MG/ML VL/or syr IV PRN (14:37)
--- NOTE | 2024-01-28 17:00 | DVHPN2 ---
Progress Note Date Seen: Jan 28, 2024 Medical Necessity Reason Pt with a Central, PICC or Fol: Yes The following are medically ne: PICC Line, Davies Catheter Reason for davies catheter: Strict I&O Subjective Patient reports: Other (events noted) Objective vital signs Vital Sign Date Time Temp Pulse Resp B/P (MAP) Pulse Ox O2 Delivery O2 Flow Rate FiO2 01/28/24 15:07 100 19 74/24 01/28/24 14:00 30 01/28/24 14:00 92 Mechanical Ventilator+ 01/28/24 06:00 99.3 210.7 Total Intake and Output 01/27/24 01/27/24 01/28/24 15:00 23:00 07:00 Intake Total 907.000 ml 794.000 ml 752.000 ml Output Total 790 ml 930 ml Balance 907.000 ml 4.000 ml -178.000 ml medications Current Medications Medications Dose Ordered Sig/Saige Route Start Time Stop Time Status Last Admin Dose Admin Ipratropium [place] 0.5 mg Q6HR NEB 12/27/23 18:00 Cancel Sodium Chloride 10 ml QSHIFT@10,22 IV 01/05/24 22:00 01/28/24 09:51 10 ML Acetaminophen 1,000 mg Q8HP PRN IV 01/13/24 18:00 01/26/24 09:45 1,000 MG Hydromorphone HCl 1 mg Q2HPRN PRN IV 01/28/24 13:45 01/28/24 14:37 1 MG Lorazepam 1 mg Q1HP PRN IV 01/28/24 13:45 01/28/24 16:24 1 MG Examination: MSK:Abnormal laboratory and microbiology Laboratory Tests 01/28/24 03:29 Test 01/28/24 03:29 Range/Units Serum Glucose 137 H 74-106 mg/dL Microbiology Date/Time Source Procedure Growth Status 01/20/24 14:32 Peritoneal Fluid Gram Stain - Final Complete 01/20/24 14:32 Peritoneal Fluid Anaerobic Culture - Final Complete 01/20/24 14:32 Peritoneal Fluid Aerobic Culture - Final Complete 01/14/24 19:03 Trachea Gram Stain - Final Complete 01/14/24 19:03 Respiratory Culture - Final Yeast, not Ayse albicans Complete 01/14/24 10:28 Voided Urine Urine Culture - Final Complete 01/14/24 10:25 Blood Blood Culture - Final NO GROWTH AFTER 5 DAYS OF INCUBATION. 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
--- NOTE | 2024-01-28 17:15 | DVHDSRES ---
Discharge Summary Date of Admission Resident Creating Document: NICHOLE CANCINO RESIDENT Dec 17, 2023 at 21:54 Date of Discharge: Jan 02, 2024 Admitting Diagnosis Abdominal pain Metastatic colon cancer Labs/Diagnostic Data: Laboratory Results Test 01/28/24 11:23 01/28/24 07:15 01/28/24 03:29 01/27/24 10:10 POC Glucose 133 mg/dl (70-106) Blood Gas Specimen Type Arterial Blood Gas Sample Site Right brachial Blood Gas Patient Temperature 37.0 Arterial Blood Date Drawn [id number] Arterial Blood pH 7.276 (7.350-7.450) Arterial Blood Partial Pressure CO2 36.8 mmHg (32.0-45.0) Arterial Blood Partial Pressure O2 68.5 mmHg (83.0-108.0) Arterial Blood HCO3 16.7 mmol/L (21.0-28.0) Arterial Blood Oxygen Saturation 89.5 % (94.0-98.0) Arterial Blood Base Excess -9.3 mmol/L (-2.0-3.0) Arterial Blood Oxyhemoglobin 88.6 % (94.0-98.0) Arterial Blood Carboxyhemoglobin 0.9 % (0.5-1.5) Arterial Blood Methemoglobin 0.1 % (0.0-1.5) Aquiles Test N/a Blood Gas Total Hemoglobin 9.60 g/dL (12.0-16.0) Blood Gas Set Respiration Rate 26.0 Blood Gas Modality Vent - ac FiO2 % 30.0 Blood Gas Tidal Volume 350.0 Blood Gas PEEP or CPAP 5.0 White Blood Count 52.4 10^3/uL (4.4-10.8) Red Blood Count 3.39 10^6/uL (4.0-5.20) Hemoglobin 8.7 g/dL (12.2-16.2) Hematocrit 29.0 % (36.0-46.0) Mean Corpuscular Volume 85.6 fL (80.0-100.0) Mean Corpuscular Hemoglobin 25.5 pg (28.0-32.0) Mean Corpuscular Hemoglobin Concent 29.8 g/dL (32.0-36.0) Red Cell Distribution Width 26.6 % (11.8-14.3) Platelet Count 321 10^3/uL (140-450) Mean Platelet Volume 10.2 fL (6.9-10.8) Neutrophils (%) (Auto) % (37.0-80.0) Lymphocytes (%) (Auto) % (10.0-50.0) Monocytes (%) (Auto) % (0.0-12.0) Basophils (%) (Auto) % (0.0-2.0) Neutrophils # (Auto) 10 ^3/uL (1.6-8.6) Lymphocytes # (Auto) 10 ^3/uL (0.4-5.4) Monocytes # (Auto) 10 ^3/uL (0-1.3) Differential Total Cells Counted 100.0 (100) Neutrophils % (Manual) 84 (37.0-80.0) Band Neutrophils % (Manual) 8 Lymphocytes % (Manual) 3 (10.0-50.0) Monocytes % (Manual) 3 (0-12) Eosinophils % (Manual) 1 (0-7) Basophils % (Manual) 0 (0.0-2.0) Metamyelocytes % (manual) 0 Myelocytes % (Manual) 1 Promyelocytes % (Manual) 0 Blast Cells % (Manual) 0 Reactive Lymphocytes 0 Platelet Estimate Adequate Anisocytosis (manual) Moderate Target Cells Few Ovalocytes Few Schistocytes Few Sodium Level 143 mmol/L (136-145) Potassium Level 5.4 mmol/L (3.5-5.1) Chloride Level 110 mmol/L (98-107) Carbon Dioxide Level 18 mmol/L (20-31) Anion Gap 15 (5-15) Blood Urea Nitrogen 107 mg/dL (9-23) Creatinine 1.47 mg/dL (0.550-1.02) Glomerular Filtration Rate Calc 40 mL/min (>90) BUN/Creatinine Ratio 72.8 (10.0-20.0) Serum Glucose 137 mg/dL (74-106) Calcium Level 8.7 mg/dL (8.7-10.4) Phosphorus Level 7.1 mg/dL (2.4-5.1) Magnesium Level 2.3 mg/dL (1.6-2.6) Total Bilirubin 5.5 mg/dL (0.2-1.0) Aspartate Amino Transferase (AST) 493 U/L (13-40) Alanine Aminotransferase (ALT) 228 U/L (7-40) Alkaline Phosphatase 308 U/L (46-116) Total Protein 5.3 g/dL (5.7-8.2) Albumin 2.3 g/dL (3.2-4.8) Triglycerides Level 217 mg/dL (< 150) Random Vancomycin Level 23.9 ug/mL (5-10) Hypochromasia (manual) Slight Test 01/26/24 10:30 01/26/24 08:14 01/23/24 03:11 01/22/24 09:25 Nucleated Red Blood Cells 1.0 % Microcytosis Slight Blood Gas Spontaneous Rate 34 Specimen Drawn By Alexei [facility] Large Platelets Few Maite Cells Few Clumped Platelets Few Test 01/22/24 06:43 01/20/24 03:50 01/19/24 06:00 01/18/24 03:17 Blood Gas Inspiratory Pressure 19.0 Bl Gas Inspiratory/Expiratory Ratio 1:2.6 Eosinophils (%) (Auto) 1.3 % (0.0-7.0) Eosinophils # (Auto) 0.2 10 ^3/uL (0-0.8) Basophils # (Auto) 0.1 10 ^3/uL (0-0.2) Prothrombin Time 15.7 sec (9.3-11.8) Prothrombin Time INR 1.53 (0.9-1.15) Activated Partial Thromboplast Time 39.7 SEC (24.5-34.5) B-Type Natriuretic Peptide 483.84 pg/mL (0-100) Stomatocytes Few Test 01/15/24 19:48 01/15/24 08:25 01/15/24 06:57 01/15/24 05:02 Vancomycin Level Trough 31.6 ug/mL (5-10) Cortisol AM Sample 24.61 ug/dL (5.27-22.45) Blood Gas Critical Value Read Back Yes Blood Gas Notified Whom Ronak jordan md Blood Gas Notified Time [id number] Blood Gas Notified By Guillermo frank rrt Lactic Acid Level 1.7 mmol/L (0.4-2.0) Test 01/14/24 10:28 01/14/24 05:53 01/13/24 21:26 01/13/24 09:37 Urine Color Dark-yellow (Yellow) Urine Clarity Clear (Clear) Urine pH 5.5 (5.0-9.0) Urine Specific [place] 1.017 (1.001-1.035) Urine Protein 1+ (Negative) Urine Ketones Negative (Negative) Urine Blood 1+ /uL (Negative) Urine Nitrite Negative (Negative) Urine Bilirubin 1+ (Negative) Urine Urobilinogen Normal mg/dL (Negative) Urine Leukocyte Esterase Negative /uL (Negative) Urine RBC 3 /hpf (0 - 4) Urine WBC 2 /hpf (0 - 5) Urine Squamous Epithelial Cells Few /hpf (<5) Urine Bacteria None seen /hpf (None Seen) Urine Hyaline Casts Few /lpf (0 - 2) Urine Glucose Normal mg/dL (Normal) Uric Acid 6.4 mg/dL (3.1-7.8) Creatine Kinase 78 U/L (34-145) Blood Gas Pressure Support 8 Test 01/13/24 03:30 01/12/24 13:00 01/12/24 03:55 01/04/24 11:30 Giant Platelets Few Blood Gas Spontaneous Tidal Volume 454 Macrocytosis Poikilocytosis (manual) Slight Test 01/03/24 05:00 01/01/24 03:10 12/26/23 12:45 12/26/23 01:30 Tear Drop Cells Few Sickle Cells Vitamin D 25-Hydroxy 37.7 ng/mL (30.0-100) Parathyroid Hormone (Intact) 52.1 pg/mL (18.4-80.1) Urine Granular Casts Few /lpf (0) Urine Mucus Few (None Seen) Urine Yeast (Budding) Occasional /hpf (None Urine Creatinine 64.14 mg/dL (30.0-125.0) Urine Protein/Creatinine Ratio 1.97 Urine Sodium 35 mmol/L (40-220) Urine Total Protein 126.3 mg/dL (1-14) Test 12/19/23 16:03 12/19/23 10:40 12/18/23 13:03 12/18/23 12:28 Troponin I High Sensitivity 42 ng/L (</=34) CA 19-9 Antigen 1546 U/mL (0-35) Stool Occult Blood Positive (Negative) Stool Occult Blood Sample #3 (Negative) SARS-CoV-2 Antigen (Rapid) Negative (NEGATIVE) Test 12/18/23 08:21 12/18/23 08:02 Erythrocyte Sedimentation Rate 75 mm/hr (0-20) Hemoglobin A1c 5.1 % A1C (<5.7) Iron Level 25 ug/dL (50-170) Total Iron Binding Capacity 323 ug/dL (250-425) Percent Iron Saturation 7.7 % (15-50) C-Reactive Protein High Sensitivity 10.15 mg/dL (<1.0) Tumor Marker Alpha Fetoprotein 2.0 ng/mL (0.0-9.2) Carcinoembryonic Antigen 326.14 ng/mL (<=5.0) Vitamin B12 Level 2343 pg/mL (211-911) Folic Acid 6.56 ng/mL (>5.38) Thyroid Stimulating Hormone (TSH) 2.84 uIU/mL (0.55-4.78) Plasma/Serum Blood Alcohol < 3.0 mg/dL (<10) Hepatitis A IgM Antibody Negative Hepatitis A Antibody Total Positive (Negative) Hepatitis B Surface Antigen Negative (Negative) Hepatitis B Surface Antibody Negative (Negative) Hepatitis B Core Total Antibody Negative (Negative) Hepatitis B Core IgM Antibody Negative Hepatitis C Antibody Negative (Negative) Urine Opiates Screen Neg (NEGATIVE) Urine Fentanyl Screen Neg (NEGATIVE) Urine Barbiturates Screen Neg (NEGATIVE) Urine Phencyclidine Screen Neg (NEGATIVE) Urine Amphetamines Screen Neg (NEGATIVE) Urine Benzodiazepines Screen Neg (NEGATIVE) Urine Cocaine Screen Neg (NEGATIVE) Urine Cannabinoids Screen Neg (NEGATIVE) Other Laboratory Tests 01/28/24 03:29 Condition at Discharge: Poor Final Diagnosis/Problems List Metabolic encephalopathy probably secondary to sepsis Acute on chronic systolic congestive heart failure (HFrEF, LVEF 35%)-status post ICD placement History of coronary artery disease with cardiac arrest (VFib/V-tach) - status post PCI with stent placements NSTEMI type 2 Acute respiratory failure due to Multiple pneumonia secondary to Enterobacter cloacae and Klebsiella Ruled out Ventilator associated Pneumonia Aspiration pneumonia due to Gm +/- Bacteria. Multiple pneumonia secondary to Enterobacter cloacae and Klebsiella Bowel obstruction secondary to sigmoid adenocarcinoma with hepatic metastasis - status post colectomy with terminal-terminal anastomosis Pelvic abscess - status post drainage Hepatomegaly secondary to liver metastasis due to sigmoid adenocarcinoma Transaminitis Secondary to above History of multiple UTIs Hypernatremia Septic shock probably secondary to aspiration pneumonia versus pelvic abscess . Persistent sepsis probably secondary to pelvic abscess Persistent leukocytosis Probably secondary to pelvic abscess Coagulopathy secondary to sepsis Discharge Disposition: at Hospital SNF Discharge Will this Physician continue t: No Discharge Instruct/Medications Activity: See Comment Follow Up/Referral: Medications: Discharge Statement: "Patient was advised to return to the ER or call 911 if any headaches, dizziness, shortness of breath, chest pain, abdominal pain, bleeding, fevers, or worsening of medical condition. Patient was counseled about treatment plan, medications, possible side effects, patientverbalized understanding. All questions were answered to the best of my ability. This discharge took greater then 30 minutes in planning, reviewing documentation, counseling the patient, and discussing with other team members." ASSESSMENT ASSESSMENT Assessment s/p intubation asthma exacrebation NICHOLE CANCINO RESIDENT Jan 28, 2024 17:15
== END 2024-01-28 22:31 | DRG 853 ==
LOC: ER 14:33 → OVERFLOW 21:54 → WEST WING 23:50 → ICU WEST 12-25 14:27 → OVERFLOW 12-25 15:58 → ICU WEST 12-25 17:01 → EAST 01-13 22:20 → DOU IN ADS 01-13 23:54 → DOU IN ICU 01-14 18:29 → ICU CENTRL 01-15 05:51 → ICU WEST 01-16 20:42
PROVIDERS: ADMIT Internal Medicine; ATTEND Internal Medicine
PROC: 0DBN8ZX Excision of Sigmoid Colon, Via Natural or Artificial Opening Endoscopic, Diagnostic (ICD-10-PCS; 2023-12-19)
PROC: 0FB13ZX Excision of Right Lobe Liver, Percutaneous Approach, Diagnostic (ICD-10-PCS; 2023-12-22)
PROC: 5A1955Z Respiratory Ventilation, Greater than 96 Consecutive Hours (ICD-10-PCS; 2023-12-25)
PROC: 0BH18EZ Insertion of Endotracheal Airway into Trachea, Via Natural or Artificial Opening Endoscopic (ICD-10-PCS; 2023-12-25)
PROC: 0DTG0ZZ Resection of Left Large Intestine, Open Approach (ICD-10-PCS; 2023-12-25)
PROC: 0DJD4ZZ Inspection of Lower Intestinal Tract, Percutaneous Endoscopic Approach (ICD-10-PCS; 2023-12-25)
PROC: 30233K1 Transfusion of Nonautologous Frozen Plasma into Peripheral Vein, Percutaneous Approach (ICD-10-PCS; 2023-12-25)
PROC: 05HD33Z Insertion of Infusion Device into Right Cephalic Vein, Percutaneous Approach (ICD-10-PCS; 2023-12-29)
PROC: B54MZZA Ultrasonography of Right Upper Extremity Veins, Guidance (ICD-10-PCS; 2023-12-29)
PROC: 0B9D8ZX Drainage of Right Middle Lung Lobe, Via Natural or Artificial Opening Endoscopic, Diagnostic (ICD-10-PCS; 2024-01-04)
PROC: 0BH17EZ Insertion of Endotracheal Airway into Trachea, Via Natural or Artificial Opening (ICD-10-PCS; 2024-01-04)
PROC: 5A1955Z Respiratory Ventilation, Greater than 96 Consecutive Hours (ICD-10-PCS; 2024-01-04)
PROC: 02HV33Z Insertion of Infusion Device into Superior Vena Cava, Percutaneous Approach (ICD-10-PCS; 2024-01-05)
PROC: B548ZZA Ultrasonography of Superior Vena Cava, Guidance (ICD-10-PCS; 2024-01-05)
PROC: 0W9J3ZZ Drainage of Pelvic Cavity, Percutaneous Approach (ICD-10-PCS; 2024-01-07)
PROC: 0BJ08ZZ Inspection of Tracheobronchial Tree, Via Natural or Artificial Opening Endoscopic (ICD-10-PCS; 2024-01-14)
PROC: 30233N1 Transfusion of Nonautologous Red Blood Cells into Peripheral Vein, Percutaneous Approach (ICD-10-PCS; 2024-01-15)
PROC: 0FB00ZX Excision of Liver, Open Approach, Diagnostic (ICD-10-PCS; 2024-01-20)
PROC: 0D1L0Z4 Bypass Transverse Colon to Cutaneous, Open Approach (ICD-10-PCS; 2024-01-20)
PROC: 0W9J0ZZ Drainage of Pelvic Cavity, Open Approach (ICD-10-PCS; 2024-01-20)
PROC: 0DBL0ZZ Excision of Transverse Colon, Open Approach (ICD-10-PCS; principal; 2024-01-20 14:04)
DX: A41.9 Sepsis, unspecified organism (principal); G93.41 Metabolic encephalopathy; I21.A1 Myocardial infarction type 2; R65.21 Severe sepsis with septic shock; K75.0 Abscess of liver; J96.01 Acute respiratory failure with hypoxia; K65.1 Peritoneal abscess; J69.0 Pneumonitis due to inhalation of food and vomit; J15.69 Pneumonia due to other Gram-negative bacteria; I50.23 Acute on chronic systolic (congestive) heart failure; C78.7 Secondary malignant neoplasm of liver and intrahepatic bile duct; K56.699 Other intestinal obstruction unspecified as to partial versus complete obstruction; N17.9 Acute kidney failure, unspecified; E87.1 Hypo-osmolality and hyponatremia; E87.20 Acidosis, unspecified; C18.2 Malignant neoplasm of ascending colon; C18.7 Malignant neoplasm of sigmoid colon; I42.9 Cardiomyopathy, unspecified; N39.0 Urinary tract infection, site not specified; R18.8 Other ascites; E87.4 Mixed disorder of acid-base balance; Z99.11 Dependence on respirator [ventilator] status; D62 Acute posthemorrhagic anemia; E87.0 Hyperosmolality and hypernatremia; J45.901 Unspecified asthma with (acute) exacerbation; D68.8 Other specified coagulation defects; Z20.822 Contact with and (suspected) exposure to COVID-19; I11.0 Hypertensive heart disease with heart failure; E78.5 Hyperlipidemia, unspecified; E83.42 Hypomagnesemia; F10.10 Alcohol abuse, uncomplicated; Y90.9 Presence of alcohol in blood, level not specified; I25.10 Atherosclerotic heart disease of native coronary artery without angina pectoris; K64.8 Other hemorrhoids; K81.9 Cholecystitis, unspecified; N28.1 Cyst of kidney, acquired; N73.9 Female pelvic inflammatory disease, unspecified; R16.0 Hepatomegaly, not elsewhere classified; K29.70 Gastritis, unspecified, without bleeding; I25.2 Old myocardial infarction; Z88.5 Allergy status to narcotic agent; Z88.8 Allergy status to other drugs, medicaments and biological substances; Z79.899 Other long term (current) drug therapy; Z79.82 Long term (current) use of aspirin; Z87.891 Personal history of nicotine dependence; Z95.5 Presence of coronary angioplasty implant and graft; Z82.49 Family history of ischemic heart disease and other diseases of the circulatory system; Z82.3 Family history of stroke; Z83.3 Family history of diabetes mellitus; Z87.440 Personal history of urinary (tract) infections; Z86.74 Personal history of sudden cardiac arrest; Z53.31 Laparoscopic surgical procedure converted to open procedure; Z79.84 Long term (current) use of oral hypoglycemic drugs; Z85.038 Personal history of other malignant neoplasm of large intestine; Z90.711 Acquired absence of uterus with remaining cervical stump; Z95.810 Presence of automatic (implantable) cardiac defibrillator
CPT/HCPCS: 10005; 36415; 36569; 36600; 70450; 71045; 71260; 72192; 74018; 74176; 74177; 74250; 76705; 76937; 76942; 77012; 78452; 80048; 80053; 80074; 80202; 80307; 80320; 81001; 82105; 82270; 82306; 82378; 82533; 82550; 82565; 82570; 82607; 82746; 82805; 82962; 83036; 83540; 83550; 83605; 83735; 83880; 83970; 84100; 84132; 84156; 84300; 84443; 84478; 84484; 84550; 85007; 85014; 85018; 85025; 85027; 85610; 85652; 85730; 86141; 86301; 86704; 86706; 86708; 86803; 86850; 86900; 86901; 86920; 87040; 87045; 87070; 87075; 87077; 87081; 87086; 87177; 87186; 87205; 87340; 87426; 87427; 93005; 93017; 93306; 93970; 94002; 94003; 94640; 97116; 97163; 97530; C1729; G0378; J0131; J0692; J1100; J1450; J1815; J1885; J2003; J2185; J2248; J2250; J2405; J2470; J2543; J2704; J3430; J3480; J3490; J7060; J7131; P9047